=== PATIENT | female | born 1975 | race African-American/Black ===

== ENCOUNTER → 2016-07-04 | Outpatient (CLI) | payer OTHER ==
[2016-07-04 12:45] LABS: Appearance,Urine Clear (Clear); Bilirubin,Urine Negative (Negative); Glucose,Urine (UA) Negative (Negative); Ketones,Urine Negative (Negative); Leukocyte Esterase,Urine Negative (Negative); Nitrite,Urine Negative (Negative); PH, Urine 6.5 (5.0-8.0); Protein,Urine Negative (Negative); UA Billing (MACRO vs. MICRO) CHEM; Urobilinogen,Urine <2.0 mg/dL (<2.0)
== END | disposition home or self-care (01) ==
LOC: LABWHC1 12:07
PROVIDERS: ATTEND Internal Medicine Endocrinology, Diabetes & Metabolism
DX: R30.0 Dysuria (principal)
CPT/HCPCS: 36415; 81003; 82306; 84432; 84443; 86800; 87086

== ENCOUNTER → 2016-10-06 | Outpatient (CLI) | payer OTHER | END | disposition home or self-care (01) | LOC: LABWHC1 09:19 | PROVIDERS: ATTEND Internal Medicine Endocrinology, Diabetes & Metabolism | DX: C73 Malignant neoplasm of thyroid gland (principal); E55.9 Vitamin D deficiency, unspecified | CPT/HCPCS: 36415; 82306; 84432; 84443; 86800 ==

== ENCOUNTER → 2017-03-02 | Outpatient (CLI) | payer OTHER ==
--- NOTE | 2017-03-02 13:21 | ECHOS ---
STRESS ECHOCARDIOGRAM DATE OF SERVICE: 03/02/2017 MEDICATIONS:: Synthroid. BASELINE HEART RATE: 91 BASELINE BLOOD PRESSURE: 144/45 MAXIMUM HEART RATE: 171 MAXIMUM BLOOD PRESSURE: 172/93 85% MPHR: 153 100% MPHR: 180 METS: 7.1 MAXIMUM STAGE REACHED: II TOTAL EXERCISE TIME: 6 minutes INDICATIONS: Chest pain, flutter, EKG changes. CLINICAL INFORMATION: Patient was exercised for a total of 6 minutes. The peak heart rate of 171 was achieved. Maximum blood pressure of 172/93 mmHg was noted. Patient did not complain of any chest pain during the test. Resting EKG shows normal sinus rhythm with normal VT interval and QRS duration and normal ST-T waves. No ST-segment depression suggestive of ischemia is noted. Occasional PVCs are noted. FINAL IMPRESSION: 1. This exercise stress is not suggestive of ischemia. 2. Patient's exercise tolerance is normal. 3. Occasional PVCs are noted. 4. The stress echocardiographic images reveal normal increase in wall thickness and contractility at the peak in the immediate postexercise period without any evidence of stress-induced ischemia. MMODL / IJN: [id number] /
== END | disposition home or self-care (01) ==
LOC: RADNMMAIN 10:01
PROVIDERS: ATTEND Family Medicine
DX: R94.31 Abnormal electrocardiogram [ECG] [EKG] (principal); R07.9 Chest pain, unspecified; Z82.49 Family history of ischemic heart disease and other diseases of the circulatory system
CPT/HCPCS: 93017; 93225; 93226; 93350

== ENCOUNTER → 2018-03-22 | Outpatient (CLI) | payer OTHER ==
[2018-03-23 06:19] LABS: Thyroglobulin 0.22 ng/mL (1.60-59.90)
== END | disposition home or self-care (01) ==
LOC: LABWHC1 17:01
PROVIDERS: ATTEND Internal Medicine Endocrinology, Diabetes & Metabolism
DX: C73 Malignant neoplasm of thyroid gland (principal)
CPT/HCPCS: 36415; 84432; 84443; 86800

== ENCOUNTER → 2018-12-24 | Outpatient (CLI) | payer OTHER ==
[2018-12-24 10:40] VITALS: BP 122/84; PULSE 83; RESP 18; TEMP 98.3; BMI 42.4
--- NOTE | 2018-12-24 11:08 | P.GSHP ---
History of Present Illness H&P Date: 12/24/18 Chief Complaint: abnormal mammogram and ultrasound The patient is a 43 year old black female with a complaint of the left breast feeling heavy over the past 3 months. It also has intermittent burning and tingling in the left breast. The burning and tingling does not radiate anyplace. The patient states it hurts right now. The patient does not feel any masses or lumps in her breasts. She is not having the same sensation in the right breast although she does have some itching in the superior aspect of the right breast at times. She has no definite rash in either breast. She has experienced hives over the anterior chest in the past. She had a bilateral mammogram performed in September 2018 which they recommended that she undergo an ultrasound of the left breast nothing of concern was seen on the right breast a 5 mm subtle nodularity in the middle depth was seen in the left breast. On the ultrasound of the left breast the patient did not have any cystic or solid lesions identified. It was felt that she should have a left breast mammogram in 6 months time. The patient had a partial hysterectomy in the pain does not appear to be cyclic in nature. The hysterectomy was not done for cancer. Her ovaries were not removed. This was done 9 years ago. She does not drink caffiene. She does not smoke and is not exposed to second hand smoke. She eats chocolate occasionally. She does not take any hormones. The patient also states that she has back pain related to the size of her breasts. Her bra size is 44 DD. She also gets routine in her shoulders related to the heaviness of her breasts. Family history: 1.mother: colon 2. maternal grandmother: cervical 3. maternal aunt: stomach 4. maternal aunt: breast 5. sister: breast cancer at 49 pre-menopausal 6. paternal grandmother: breast cancer at 90 7. personal history thyroid cancer Name of her relatives have had genetic counseling. Hormonal history: Menarche: 14 1 miscarrage, breast fed: yes, first born at 19 hysterectomy at 32 BCP: 3 months hormones: none Surgical history: 1.thyroid cancer total thyroidectomy 2. tubal-ligation 3. hysterectomy Medical history: 1. Hypothyroid Social History: smoke: none alcohol: daily -rum drugs: none - Constitutional Constitutional: Denies chills, Denies fever - EENT Eyes: bilateral blurred vision (occasional), bilateral pain (occasional) Ears: bilateral: decreased hearing (hearing impaired needs aids) Ears, nose, mouth and throat: Reports headache, Reports sore throat - Breasts Breasts: bilateral: as per HPI - Cardiovascular Cardiovascular: Denies chest pain - Respiratory Respiratory: Denies cough, Denies 7 - Gastrointestinal Gastrointestinal: Denies abdominal pain, Denies diarrhea, Denies nausea, Denies vomiting - Genitourinary (Female) Genitourinary: Denies dysuria, Denies hematuria - Menstruation Menstruation: Reports post hysterectomy - Musculoskeletal Comment: right wrist hurts, carpal tunnel Musculoskeletal: Reports myalgias - Integumentary Integumentary: Reports pruritus, Reports rash - Neurological Neurological: Reports numbness, Reports weakness - Psychiatric Psychiatric: Reports anxiety - Endocrine Comment: thyroid resection for cancer Endocrine: Reports weight change - Hematologic/Lymphatic Comment: none - Allergic/Immunologic Comment: none Allergic/Immunologic: Reports as per HPI Past Medical History Past Medical History: GERD/Reflux, Thyroid Disorder Additional Past Medical History / Comment(s): overactive bladder History of Any Multi-Drug Resistant Organisms: None Reported Past Surgical History: Hysterectomy Additional Past Surgical History / Comment(s): partial hysterectomy, 09/11/14 thyroid removal Past Anesthesia/Blood Transfusion Reactions: No Reported Reaction Past Psychological History: No Psychological Hx Reported Smoking Status: Never smoker Past Alcohol Use History: Occasional - Past Family History Mother Family Medical History: Cancer, Hypertension Additional Family Medical History / Comment(s): colon cancer. maternal aunt with breast cancer age 40 Sister(s) Family Medical History: Cancer Additional Family Medical History / Comment(s): breast cancer age 49 Father Family Medical History: Hypertension Additional Family Medical History / Comment(s): paternal gradmother breast cancer age 80 Medications and Allergies Home Medications Medication Instructions Recorded Confirmed Type Levothyroxine Sodium 137 mcg PO QAM 12/24/18 12/24/18 History Multivitamins, Thera [Multivitamin 1 tab PO DAILY 12/24/18 12/24/18 History (formulary)] Allergies Allergy/AdvReac Type Severity Reaction Status Date / Time No Known Allergies Allergy Verified 12/24/18 10:29 Surgical - Exam Vital Signs Temp Pulse Resp BP Pulse Ox 98.3 F 83 18 122/84 100 12/24/18 10:31 12/24/18 10:31 12/24/18 10:31 12/24/18 10:31 12/24/18 10:31 BMI 42.4 - General well developed, well nourished, no distress - Eyes normal ocular movement - ENT decreased hearing - Neck no masses, trachea midline - Respiratory normal respiratory effort, clear to auscultation - Cardiovascular Rhythm: regular Heart Sounds: normal: S1, S2 - Abdomen Abdomen: soft - Integumentary normal turgor - Neurologic no disoriented, no combative - Musculoskeletal normal gait, normal posture - Psychiatric oriented to time, oriented to person, oriented to place, speech is normal, memory intact Breast examination: BRA 44DD Breasts: right breast:Multi-positional exam tattoo present fibrocystic changes no dominant masses or nodules of concern Right axilla: No adenopathy of concern Left breast: Asymmetry left breast is larger than the right breast no dominant masses or nodules of concern on multi-positional exam, fibrocystic changes Left axilla: No adenopathy of concern Results Mammogram and ultrasound results reviewed Assessment and Plan Assessment: Impression: 1. Abnormal mammogram left breast 2. Abnormal ultrasound left breast 3. Strong family history of cancer 4. Strong family history of breast cancer 5. Personal history of thyroid cancer 6. Hearing impaired 7. Back pain related to gynecomastia 8. Routine in her shoulders related to the heaviness of her breast from her block 9. Asymmetry of the breast with the left being larger than the right Plan: 1. Genetic counseling 2. Conservative breast reduction 3. Medical management of medical conditions Cc: Epifanio Calzada
== END | disposition home or self-care (01) ==
LOC: WWCWWP 10:19
PROVIDERS: ATTEND Surgery
DX: Z53.9 Procedure and treatment not carried out, unspecified reason (principal)

== ENCOUNTER → 2019-04-11 | Outpatient (CLI) | payer OTHER ==
--- NOTE | 2019-04-11 14:49 | MM ---
Reason for exam: follow-up at short interval from prior study. Last mammogram was performed 6 months ago. History: Patient has history of other cancer at age 39. Family history of breast cancer in sister at age 49, breast cancer in paternal grandmother at age 80, and breast cancer in aunt at age 40. Physical Findings: Nurse did not find any significant physical abnormalities on exam. MG 3D Diag Mammo W/Cad LT CC and MLO view(s) were taken of the left breast. Prior study comparison: October 06, 2018, bilateral MG 3d diag mammo w/cad GERARDO. May 07, 2015, bilateral MG 3d diag mammo w/cad GERARDO. The breast tissue is heterogeneously dense. This may lower the sensitivity of mammography. The left upper outer quadrant 4mm mass at middle depth is unchanged. 6 month follow up recommended. These results were verbally communicated with the patient and result sheet given to the patient on 04/11/19. ASSESSMENT: Probably benign, BI-RAD 3 RECOMMENDATION: Follow-up diagnostic mammogram of both breasts in 6 months.
== END | disposition home or self-care (01) ==
LOC: RADMAMWWP 13:06
PROVIDERS: ATTEND Obstetrics & Gynecology
DX: R92.8 Other abnormal and inconclusive findings on diagnostic imaging of breast (principal)
CPT/HCPCS: 77065; G0279; 77061

== ENCOUNTER → 2019-04-14 | Outpatient (CLI) | payer OTHER ==
[2019-04-14 14:09] VITALS: BP 120/81; PULSE 73; RESP 18; TEMP 97.8
--- NOTE | 2019-04-14 14:50 | P.PN ---
Subjective Progress Note Date: 04/14/19 Principal diagnosis: mammogram results The patient is a 43 year old black female with a complaint of the left breast feeling heavy over the past 3 months. It also has intermittent burning and tingling in the left breast. The burning and tingling does not radiate anyplace. The patient states it hurts right now. The patient does not feel any masses or lumps in her breasts. She is not having the same sensation in the right breast although she does have some itching in the superior aspect of the right breast at times. She has no definite rash in either breast. She has experienced hives over the anterior chest in the past. She had a bilateral mammogram performed in September 2018 which they recommended that she undergo an ultrasound of the left breast nothing of concern was seen on the right breast a 5 mm subtle nodularity in the middle depth was seen in the left breast. On the ultrasound of the left breast the patient did not have any cystic or solid lesions identified. It was felt that she should have a left breast mammogram in 6 months time. The patient had a partial hysterectomy in the pain does not appear to be cyclic in nature. The hysterectomy was not done for cancer. Her ovaries were not removed. This was done 9 years ago. She does not drink caffiene. She does not smoke and is not exposed to second hand smoke. She eats chocolate occasionally. She does not take any hormones. The patient also states that she has back pain related to the size of her breasts. Her bra size is 44 DD. She also gets routine in her shoulders related to the heaviness of her breasts. She started taking Prilosec oil approximately a month ago. She has not noted a ny large changes in the discomfort in her left breast. She had a left breast mammogram performed on [id number]. This was felt to be probably benign BIRADS 3. Six-month follow-up was recommended. There is a 4 mm mass at middle depth which is felt to be unchanged. She attempted to have genetic counseling but was unable to reach the genetic counseling office. She states she has left numerous messages with them but they have not called back. Family history: 1.mother: colon 2. maternal grandmother: cervical 3. maternal aunt: stomach 4. maternal aunt: breast 5. sister: breast cancer at 49 pre-menopausal 6. paternal grandmother: breast cancer at 90 7. personal history thyroid cancer None of her relatives have had genetic counseling. Hormonal history: Menarche: 14 1 misc[place]age, breast fed: yes, first born at 19 hysterectomy at 32 BCP: 3 months hormones: none Surgical history: 1.thyroid cancer total thyroidectomy 2. tubal-ligation 3. hysterectomy Medical history: 1. Hypothyroid Social History: smoke: none alcohol: daily -rum drugs: none - Constitutional Constitutional: Denies chills, Denies fever - EENT Eyes: bilateral blurred vision (occasional), bilateral pain (occasional) Ears: bilateral: decreased hearing (hearing impaired needs aids) Ears, nose, mouth and throat: Reports headache, Reports sore throat - Breasts Breasts: bilateral: as per HPI - Cardiovascular Cardiovascular: Denies chest pain - Respiratory Respiratory: Denies cough, Denies 7 - Gastrointestinal Gastrointestinal: Denies abdominal pain, Denies diarrhea, Denies nausea, Denies vomiting - Genitourinary (Female) Genitourinary: Denies dysuria, Denies hematuria - Menstruation Menstruation: Reports post hysterectomy - Musculoskeletal Comment: right wrist hurts, carpal tunnel Musculoskeletal: Reports myalgias - Integumentary Integumentary: Reports pruritus, Reports rash - Neurological Neurological: Reports numbness, Reports weakness - Psychiatric Psychiatric: Reports anxiety - Endocrine Comment: thyroid resection for cancer Endocrine: Reports weight change - Hematologic/Lymphatic Comment: none - Allergic/Immunologic Comment: none Allergic/Immunologic: Reports as per HPI Past Medical History Past Medical History: GERD/Reflux, Thyroid Disorder Additional Past Medical History / Comment(s): overactive bladder History of Any Multi-Drug Resistant Organisms: None Reported Past Surgical History: Hysterectomy Additional Past Surgical History / Comment(s): partial hysterectomy, 09/11/14 thyroid removal Past Anesthesia/Blood Transfusion Reactions: No Reported Reaction Past Psychological History: No Psychological Hx Reported Smoking Status: Never smoker Past Alcohol Use History: Occasional - Past Family History Mother Family Medical History: Cancer, Hypertension Additional Family Medical History / Comment(s): colon cancer. maternal aunt with breast cancer age 40 Sister(s) Family Medical History: Cancer Additional Family Medical History / Comment(s): breast cancer age 49 Father Family Medical History: Hypertension Additional Family Medical History / Comment(s): paternal gradmother breast cancer age 80 Objective - Vital Signs Vital signs: Vital Signs Temp 97.8 F 01/02/20 14:03 Pulse 73 04/14/19 14:03 Resp 18 04/14/19 14:03 BP 120/81 04/14/19 14:03 Pulse Ox 96 04/14/19 14:03 Intake & Output 04/13/19 04/14/19 04/14/19 18:59 06:59 18:59 Weight 106.594 kg - Exam BMI 40.3 - Constitutional General appearance: Present: obese - EENT Eyes: Present: EOMI ENT: Present: hard of hearing - Neck Neck: Present: normal ROM - Respiratory Respiratory: bilateral: CTA - Cardiovascular Rhythm: regular Heart sounds: normal: S1, S2 - Integumentary Integumentary: Present: normal turgor - Psychiatric Psychiatric: Present: A&O x's 3, appropriate affect, intact judgment & insight - Additional findings Additional findings: Breast exam: Deferred Assessment and Plan Plan: Impression: 1. Abnormal left breast mammogram/4 mm nodule which is stable 2. Family history of cancer 3. Personal history of thyroid cancer 4. Hearing impaired 5. Back pain related to macromastia 6. Shoulder notching related to heaviness from her breast 7. Asymmetry of the breast 8. Breast pain Plan: 1. Genetic counseling/ set up meeting with Romelia López to help facilitate this 2. Consider breast reduction 3. Medical management of medical conditions 4. Continue primrose oil 5. Bilateral mammogram in 6 months with a physician exam at that time CC: Dr. Hannah, Dr. Rodriguez encounter 10 minutes > 50% spent in planning and counselling
== END ==
LOC: WWCWWP 13:52
PROVIDERS: ATTEND Surgery
DX: Z53.9 Procedure and treatment not carried out, unspecified reason (principal)

== ENCOUNTER → 2019-07-27 | Outpatient (CLI) | payer OTHER ==
--- NOTE | 2019-07-27 12:00 | US ---
EXAMINATION TYPE: US thyroid st tissue head/neck DATE OF EXAM: 07/27/2019 COMPARISON: US CLINICAL HISTORY: R07.89 Other chest pain, Z85.850 Personal historythyroid cancer GLAND SIZE: NODULES RIGHT: # of nodules measured on right: 0 LEFT: # of nodules measured on left: 0 ISTHMUS: # of nodules measured in the isthmus: 0 Bilateral neck scanned, no evidence of lymphadenopathy. Bilateral thyroidectomy. IMPRESSION: 1. No recurrent masses within the thyroid bed are evident.
== END | disposition home or self-care (01) ==
LOC: RADUSWWP 11:07
PROVIDERS: ATTEND Family Medicine
DX: R09.89 Other specified symptoms and signs involving the circulatory and respiratory systems (principal); Z85.850 Personal history of malignant neoplasm of thyroid
CPT/HCPCS: 76536

== ENCOUNTER → 2019-09-20 | Outpatient (CLI) | payer OTHER ==
--- NOTE | 2019-09-21 07:06 | US ---
EXAMINATION TYPE: US thyroid st tissue head/neck DATE OF EXAM: 09/20/2019 COMPARISON: US 2019 CLINICAL HISTORY: C73 MALIGNANT NEOPLASM OF THYROID GLAND. History of thyroid CA, thyroidectomy 2014, patient on thyroid meds RIGHT: surgically absent LEFT: surgically absent ISTHMUS: surgically absent Bilateral neck scanned, no evidence of lymphadenopathy. IMPRESSION: Postsurgical change with no evidence of recurrent mass.
== END | disposition home or self-care (01) ==
LOC: RADUSWWP 13:12
PROVIDERS: ATTEND Internal Medicine Endocrinology, Diabetes & Metabolism
DX: E89.0 Postprocedural hypothyroidism (principal); C73 Malignant neoplasm of thyroid gland
CPT/HCPCS: 76536; 84432; 84443; 86800

== ENCOUNTER → 2019-10-12 | Outpatient (CLI) | payer OTHER ==
--- NOTE | 2019-10-12 11:32 | MM ---
Reason for exam: follow-up at short interval from prior study. Last mammogram was performed 6 months ago. History: Patient has history of other cancer at age 39. Family history of breast cancer in sister at age 49, breast cancer in paternal grandmother at age 80, and breast cancer in aunt at age 40. Physical Findings: Nurse did not find any significant physical abnormalities on exam. MG 3D Diag Mammo W/Cad GERARDO Bilateral CC and MLO view(s) were taken. Prior study comparison: April 11, 2019, left breast MG 3d diag mammo w/cad LT. October 06, 2018, bilateral MG 3d diag mammo w/cad GERARDO. The breast tissue is heterogeneously dense. This may lower the sensitivity of mammography. There is chronic nodularity in the left breast. No significant new findings when compared with previous films. These results were verbally communicated with the patient and result sheet given to the patient on 10/12/19. ASSESSMENT: Benign, BI-RAD 2 RECOMMENDATION: Routine screening mammogram of both breasts in 1 year.
== END | disposition home or self-care (01) ==
LOC: RADMAMWWP 09:34
PROVIDERS: ATTEND Surgery
DX: R92.8 Other abnormal and inconclusive findings on diagnostic imaging of breast (principal)
CPT/HCPCS: 77066; G0279; 77062

== ENCOUNTER → 2019-10-20 | Outpatient (CLI) | payer OTHER ==
--- NOTE | 2019-10-20 11:19 | P.PN ---
Subjective Progress Note Date: 10/20/19 Principal diagnosis: fibrocystic breast changes Jaelyn is a 44-year-old black female who was initially seen approximately December 2018 with a complaint of bilateral breast fullness and discomfort. She states that the fullness and discomfort have improved. She has stopped caffeine intake. She has not complained of any lumps masses or nodules in her breast. She had a bilateral mammogram performed on 7119 which was benign BIRADS 2. She did not complain of any nipple discharge or skin changes. Her bra size is a 44 DD. She does have shoulder and back pain related to this. Family history: 1.mother: colon 2. maternal grandmother: cervical 3. maternal aunt: stomach 4. maternal aunt: breast 5. sister: breast cancer at 49 pre-menopausal 6. paternal grandmother: breast cancer at 90 7. personal history thyroid cancer Name of her relatives have had genetic counseling. Hormonal history: Menarche: 14 1 [place], breast fed: yes, first born at 19 hysterectomy at 32 BCP: 3 months hormones: none Surgical history: 1.thyroid cancer total thyroidectomy 2. tubal-ligation 3. hysterectomy Medical history: 1. Hypothyroid Social History: smoke: none alcohol: occasional rum drugs: none - Constitutional Constitutional: Denies chills, Denies fever - EENT Eyes: bilateral blurred vision (occasional), bilateral pain (occasional) Ears: bilateral: decreased hearing (hearing impaired needs aids) Ears, nose, mouth and throat: Reports headache, Reports sore throat - Breasts Breasts: bilateral: as per HPI - Cardiovascular Cardiovascular: Denies chest pain - Respiratory Respiratory: Denies cough, - Gastrointestinal Gastrointestinal: Denies abdominal pain, Denies diarrhea, Denies nausea, Denies vomiting - Genitourinary (Female) Genitourinary: Denies dysuria, Denies hematuria - Menstruation Menstruation: Reports post hysterectomy - Musculoskeletal Comment: right wrist hurts, carpal tunnel Musculoskeletal: Reports myalgias - Integumentary Integumentary: Reports pruritus, Reports rash - Neurological Neurological: Reports numbness, Reports weakness - Psychiatric Psychiatric: Reports anxiety - Endocrine Comment: thyroid resection for cancer Endocrine: Reports weight change - Hematologic/Lymphatic Comment: none - Allergic/Immunologic Comment: none Allergic/Immunologic: Reports as per HPI Objective - Vital Signs Vital signs: Vital Signs Temp 98.4 F 10/20/19 10:47 Pulse 76 10/20/19 10:47 Resp 18 10/20/19 10:47 BP 135/78 10/20/19 10:47 Pulse Ox 97 10/20/19 10:47 Intake & Output 10/19/19 10/20/19 10/20/19 18:59 06:59 18:59 Weight 108.862 kg - Exam BMI 41.2 - Constitutional General appearance: Present: obese - EENT Eyes: Present: EOMI ENT: Present: hearing grossly normal - Neck Neck: Present: normal ROM - Respiratory Respiratory: bilateral: CTA - Cardiovascular Rhythm: regular Heart sounds: normal: S1, S2 - Gastrointestinal General gastrointestinal: Present: normal bowel sounds, soft - Integumentary Integumentary: Present: normal turgor - Musculoskeletal Musculoskeletal: Present: gait normal - Psychiatric Psychiatric: Present: A&O x's 3, appropriate affect, intact judgment & insight - Additional findings Additional findings: Breast exam: BRA 44DD inspection: ptosis bilateral grade3, left breast larger than right breast, tattoo right breast palpation: right breast: Multiple positional exam fibrocystic changes, tatoo on the right breast no dominant masses or nodules of concern Right axilla: No adenopathy of concern Left breast: Multi-positional exam no dominant masses or nodules of concern, fibrocystic changes left breast is larger than right breast Left axilla: No adenopathy of concern Assessment and Plan Assessment: Impression/plan: 1. Fibrocystic breast changes 2. Decreased mastodynia bilaterally 3. Asymmetry of the breast 4. Back pain related to macromastia 5. family history of breast cancer cc: Dr. Hannah encounter 25 minutes > 50% of time in planning and counselling
[2019-10-21 10:04] VITALS: BP 135/78; PULSE 76; RESP 18; TEMP 98.4
== END | disposition home or self-care (01) ==
LOC: WWCWWP 10:32
PROVIDERS: ATTEND Surgery
DX: Z53.9 Procedure and treatment not carried out, unspecified reason (principal)

== ENCOUNTER → 2020-09-19 | Outpatient (CLI) | payer OTHER ==
--- NOTE | 2020-09-20 08:20 | US ---
EXAMINATION TYPE: US thyroid st tissue head/neck DATE OF EXAM: 09/19/2020 COMPARISON: NONE CLINICAL HISTORY: C73. Thyroid Ca. Thy Ca removed 6 years ago. GLAND SIZE: Right Lobe: Surgically absent Left Lobe: Surgically absent NODULES RIGHT: # of nodules measured on right: 0 LEFT: # of nodules measured on left: 0 ISTHMUS: # of nodules measured in the isthmus: 0 Bilateral neck scanned, no evidence of lymphadenopathy. IMPRESSION: 1. Normal postthyroidectomy ultrasound. 2. No suspicious recurrent masses.
== END | disposition home or self-care (01) ==
LOC: RADUSWWP 16:23
PROVIDERS: ATTEND Internal Medicine Endocrinology, Diabetes & Metabolism
DX: Z85.850 Personal history of malignant neoplasm of thyroid (principal)
CPT/HCPCS: 76536; 84432; 84443; 86800

== ENCOUNTER → 2020-10-19 | Outpatient (CLI) | payer OTHER ==
--- NOTE | 2020-10-23 09:06 | MM ---
Reason for exam: screening (asymptomatic). Last mammogram was performed 1 year ago. History: Patient has history of other cancer at age 39. Family history of breast cancer in sister at age 49, breast cancer in paternal grandmother at age 80, and breast cancer in aunt at age 40. Physical Findings: A clinical breast exam by your physician is recommended on an annual basis and results should be correlated with mammographic findings. MG 3D Screening Mammo W/Cad Bilateral CC and MLO view(s) were taken. Prior study comparison: October 12, 2019, bilateral MG 3d diag mammo w/cad GERARDO. April 11, 2019, left breast MG 3d diag mammo w/cad LT. There are scattered fibroglandular densities. ASSESSMENT: Negative, BI-RAD 1 RECOMMENDATION: Routine screening mammogram of both breasts in 1 year.
== END | disposition home or self-care (01) ==
LOC: RADMAMWWP 10:27
PROVIDERS: ATTEND Surgery
DX: Z12.31 Encounter for screening mammogram for malignant neoplasm of breast (principal); Z85.3 Personal history of malignant neoplasm of breast; Z80.3 Family history of malignant neoplasm of breast
CPT/HCPCS: 77063; 77067

== ENCOUNTER → 2020-10-25 | Outpatient (CLI) | payer OTHER ==
[2020-10-25 13:35] VITALS: BP 146/79; PULSE 81; RESP 12; TEMP 98.1
--- NOTE | 2020-10-25 13:56 | P.PN ---
Subjective Progress Note Date: 10/25/20 Principal diagnosis: Fibrocystic breast changes fibrocystic breast changes Jaelyn is a 45-year-old black female who was initially seen approximately December 2018 with a complaint of bilateral breast fullness and discomfort. She states that the fullness and discomfort have improved. She has stopped caffeine intake. She has not complained of any lumps masses or nodules in her breast. She had a bilateral mammogram performed on which was benign BIRADS 2. She did not complain of any nipple discharge or skin changes. Her bra size is a 44 DD. She does have shoulder and back pain related to this. Caffeine: Negative Nicotine: Negative Chocolate: occasional hormones: Negative Family history: 1.mother: colon cancer 2. maternal grandmother: cervical 3. maternal aunt: stomach 4. maternal aunt: breast 5. sister: breast cancer at 49 pre-menopausal 6. paternal grandmother: breast cancer at 90 7. personal history thyroid cancer Name of her relatives have had genetic counseling. Hormonal history: Menarche: 14 1 [place], breast fed: yes, first born at 19 hysterectomy at 32 BCP: 3 months hormones: none Surgical history: 1.thyroid cancer total thyroidectomy 2. tubal-ligation 3. hysterectomy Medical history: 1. Hypothyroid Social History: smoke: none alcohol: occasional rum drugs: none - Constitutional Constitutional: Denies chills, Denies fever - EENT Eyes: bilateral blurred vision (occasional), bilateral pain (occasional) Ears: bilateral: decreased hearing (hearing impaired needs aids) Ears, nose, mouth and throat: Reports headache, Reports sore throat - Breasts Breasts: bilateral: as per HPI - Cardiovascular Cardiovascular: Denies chest pain - Respiratory Respiratory: Denies cough, - Gastrointestinal Gastrointestinal: Denies abdominal pain, Denies diarrhea, Denies nausea, Denies vomiting - Genitourinary (Female) Genitourinary: Denies dysuria, Denies hematuria - Menstruation Menstruation: Reports post hysterectomy - Musculoskeletal Comment: right wrist hurts, carpal tunnel Musculoskeletal: Reports myalgias - Integumentary Integumentary: Reports pruritus, Reports rash - Neurological Neurological: Reports numbness, Reports weakness - Psychiatric Psychiatric: Reports anxiety - Endocrine Comment: thyroid resection for cancer Endocrine: Reports weight change - Hematologic/Lymphatic Comment: none - Allergic/Immunologic Comment: none Allergic/Immunologic: Reports as per HPI Objective - Vital Signs Vital signs: Vital Signs Temp 98.1 F 10/25/20 13:24 Pulse 81 10/25/20 13:24 Resp 12 10/25/20 13:24 BP 146/79 10/25/20 13:24 Pulse Ox 95 10/25/20 13:24 Intake & Output 10/24/20 10/25/20 10/25/20 18:59 06:59 18:59 Weight 104.326 kg - Exam BMI 39.5 - Constitutional General appearance: Present: cooperative - EENT Eyes: Present: EOMI ENT: Present: hearing grossly normal - Neck Neck: Present: normal ROM - Respiratory Respiratory: bilateral: CTA - Cardiovascular Rhythm: regular Heart sounds: normal: S1, S2 - Gastrointestinal General gastrointestinal: Present: soft - Integumentary Integumentary: Present: normal turgor - Musculoskeletal Musculoskeletal: Present: gait normal - Psychiatric Psychiatric: Present: A&O x's 3, appropriate affect, intact judgment & insight - Additional findings Additional findings: Breast Exam: BRA: 44DD inspection:bilateral grade 3 ptosis palpation: right breast: Tattoo, multiple positional exam fibrocystic changes, no dominant masses or nodules of concern Right axilla: No adenopathy of concern Left breast: Multi-positional exam fibrocystic changes, no dominant masses or nodules of concern Left axilla: No adenopathy of concern , Assessment and Plan Assessment: Impression: 1. Bilateral fibrocystic breast changes 2. Family history of breast cancer 3. Patient is interested in genetic testing Plan: 1. Bilateral mammogram in 1 year with physician exam at that time 2. Appointment with genetic counselor 3. Follow up sooner if any questions or concerns CC: Dr. Hannah
== END ==
LOC: WWCWWP 13:21
PROVIDERS: ATTEND Surgery
DX: N60.11 Diffuse cystic mastopathy of right breast (principal); N60.12 Diffuse cystic mastopathy of left breast; E03.9 Hypothyroidism, unspecified; Z79.890 Hormone replacement therapy; Z80.3 Family history of malignant neoplasm of breast

== ENCOUNTER → 2021-01-14 | Outpatient (CLI) | payer OTHER ==
--- NOTE | 2021-01-17 17:28 | P.HOLTER ---
This is a report on the 48-hour Holter monitor. Baseline EKG showed sinus rhythm with an average heart rate of 87 bpm. Minimum is 60 and maximum 125. Rare PVCs noted. There APCs noted. Patient did not maintain a diary. No significant ventricular or supraventricular arrhythmias noted. Final impression: #1. Sinus rhythm. #2 occasional APCs. #3 occasional PVCs. #4. No significant cardiac tachyarrhythmias. #5. Patient did not report any cardiac symptoms
== END | disposition home or self-care (01) ==
LOC: RADECHMAIN 12:42
PROVIDERS: ATTEND Family Medicine
DX: I49.3 Ventricular premature depolarization (principal)
CPT/HCPCS: 93225; 93226

== ENCOUNTER 2021-04-13 11:53 | Observation (INO) | payer OTHER ==
[2021-04-13] MEDS ORDERED: NITROGLYCERIN OINT 1 INCH/GM PACKET TOPICAL STA (13:11)
[2021-04-13] MEDS ORDERED: ASPIRIN 81 MG PO STA ×2 (13:11→16:10)
--- NOTE | 2021-04-13 13:14 | ED ---
General Adult HPI - General Chief complaint: Chest Pain Stated complaint: Chest pain Time Seen by Provider: 04/13/21 12:52 Source: patient, family, RN notes reviewed Mode of arrival: ambulatory Limitations: no limitations - History of Present Illness Initial comments: Patient is a pleasant 45-year-old female presenting to the emergency Department with complaints of chest discomfort. Onset of symptoms was around 2 AM. He should does have problems with anxiety however no history of similar symptoms previously. Discomfort feels like tightness. Patient does have mild associated dyspnea however questions if that is just from her sinuses. No nausea vomiting. No diaphoresis. Discomfort is mild at this time. Last night discomfort was more severe. Patient has had achiness in her legs over the past several days however that has improved. Patient does have Brother with recent heart attack. - Related Data Home Medications Medication Instructions Recorded Confirmed Cephalexin [Keflex] 500 mg PO TID 04/13/21 04/13/21 Levothyroxine Sodium [Synthroid] 112 mcg PO DAILY 04/13/21 04/13/21 Allergies Allergy/AdvReac Type Severity Reaction Status Date / Time No Known Allergies Allergy Verified 04/13/21 14:27 Review of Systems ROS Statement: Those systems with pertinent positive or pertinent negative responses have been documented in the HPI. ROS Other: All systems not noted in ROS Statement are negative. Constitutional: Denies: fever Eyes: Denies: eye pain ENT: Reports: congestion. Denies: ear pain Respiratory: Reports: as per HPI. Denies: cough Cardiovascular: Reports: as per HPI, chest pain Endocrine: Denies: fatigue Gastrointestinal: Denies: abdominal pain Genitourinary: Denies: dysuria Musculoskeletal: Denies: back pain Skin: Denies: rash Neurological: Denies: weakness Psychiatric: Reports: anxiety Past Medical History Past Medical History: GERD/Reflux, Thyroid Disorder Additional Past Medical History / Comment(s): overactive bladder History of Any Multi-Drug Resistant Organisms: None Reported Past Surgical History: Hysterectomy Additional Past Surgical History / Comment(s): partial hysterectomy, 09/11/14 thyroid removal Past Anesthesia/Blood Transfusion Reactions: No Reported Reaction Past Psychological History: No Psychological Hx Reported Smoking Status: Never smoker Past Alcohol Use History: Occasional - Past Family History Mother Family Medical History: Cancer, Hypertension Additional Family Medical History / Comment(s): colon cancer. maternal aunt with breast cancer age 40 Sister(s) Family Medical History: Cancer Additional Family Medical History / Comment(s): breast cancer age 49 Father Family Medical History: Hypertension Additional Family Medical History / Comment(s): paternal gradmother breast cancer age 80 General Exam Limitations: no limitations General appearance: alert, in no apparent distress Head exam: Present: normocephalic Eye exam: Present: normal appearance Neck exam: Present: normal inspection Respiratory exam: Present: normal lung sounds bilaterally, chest wall tenderness Cardiovascular Exam: Present: regular rate, normal rhythm Expanded Peripheral pulses: 2+: Radial (R), Radial (L), Dorsalis Pedis (R), Dorsalis Pedis (L) GI/Abdominal exam: Present: soft. Absent: distended, tenderness Extremities exam: Present: normal inspection. Absent: pedal edema, calf tenderness Neurological exam: Present: alert Psychiatric exam: Present: normal affect, normal mood Skin exam: Present: normal color Course Vital Signs 04/13/21 04/13/21 12:52 16:03 Temperature 98.8 F Pulse Rate 98 89 Respiratory 20 19 Rate Blood Pressure 126/90 117/71 O2 Sat by Pulse 94 L 89 L Oximetry EKG Findings - EKG Comments: EKG Findings:: Normal sinus rhythm 88 rate. NJ 116. QRS 80. QT 342. QTC 413 left axis. LVH criteria. No acute ST change. Prominent T waves inferior. Medical Decision Making - Medical Decision Making Patient evaluated and resting comfortably in bed. Patient and family updated on results and plan. Case was discussed with Dr. Hannah, who will admit his patient. He is aware of pending computed tomography scan. - Lab Data Result diagrams: 04/13/21 13:37 04/13/21 13:37 Lab Results 04/13/21 04/13/21 04/13/21 Range/Units 13:37 13:37 13:37 WBC 3.9 (3.8-10.6) k/uL RBC 5.09 (3.80-5.40) m/uL Hgb 16.2 H (11.4-16.0) gm/dL Hct 49.0 H (34.0-46.0) % MCV 96.3 (80.0-100.0) fL MCH 31.9 (25.0-35.0) pg MCHC 33.1 (31.0-37.0) g/dL RDW 13.5 (11.5-15.5) % Plt Count 311 (150-450) k/uL MPV 7.5 Neutrophils % 56 % Lymphocytes % 29 % Monocytes % 10 % Eosinophils % 1 % Basophils % 1 % Neutrophils # 2.2 (1.3-7.7) k/uL Lymphocytes # 1.2 (1.0-4.8) k/uL Monocytes # 0.4 (0-1.0) k/uL Eosinophils # 0.0 (0-0.7) k/uL Basophils # 0.0 (0-0.2) k/uL PT 10.5 (9.0-12.0) sec INR 1.0 (<1.2) APTT 28.4 (22.0-30.0) sec D-Dimer 0.74 H (<0.60) mg/L FEU Sodium 135 L (137-145) mmol/L Potassium 3.8 (3.5-5.1) mmol/L Chloride 103 (98-107) mmol/L Carbon Dioxide 26 (22-30) mmol/L Anion Gap 6 mmol/L BUN 7 (7-17) mg/dL Creatinine 0.81 (0.52-1.04) mg/dL Est GFR (CKD-EPI)AfAm >90 (>60 ml/min/1.73 sqM) Est GFR (CKD-EPI)NonAf 89 (>60 ml/min/1.73 sqM) Glucose 88 (74-99) mg/dL Calcium 9.4 (8.4-10.2) mg/dL Magnesium 1.9 (1.6-2.3) mg/dL Total Bilirubin 0.4 (0.2-1.3) mg/dL AST 33 (14-36) U/L ALT 20 (4-34) U/L Alkaline Phosphatase 97 (38-126) U/L Troponin I (0.000-0.034) ng/mL NT-Pro-B Natriuret Pep pg/mL Total Protein 8.3 H (6.3-8.2) g/dL Albumin 4.3 (3.5-5.0) g/dL Coronavirus (PCR) (Not Detectd) 04/13/21 04/13/21 04/13/21 Range/Units 13:37 13:37 13:37 WBC (3.8-10.6) k/uL RBC (3.80-5.40) m/uL Hgb (11.4-16.0) gm/dL Hct (34.0-46.0) % MCV (80.0-100.0) fL MCH (25.0-35.0) pg MCHC (31.0-37.0) g/dL RDW (11.5-15.5) % Plt Count (150-450) k/uL MPV Neutrophils % % Lymphocytes % % Monocytes % % Eosinophils % % Basophils % % Neutrophils # (1.3-7.7) k/uL Lymphocytes # (1.0-4.8) k/uL Monocytes # (0-1.0) k/uL Eosinophils # (0-0.7) k/uL Basophils # (0-0.2) k/uL PT (9.0-12.0) sec INR (<1.2) APTT (22.0-30.0) sec D-Dimer (<0.60) mg/L FEU Sodium (137-145) mmol/L Potassium (3.5-5.1) mmol/L Chloride (98-107) mmol/L Carbon Dioxide (22-30) mmol/L Anion Gap mmol/L BUN (7-17) mg/dL Creatinine (0.52-1.04) mg/dL Est GFR (CKD-EPI)AfAm (>60 ml/min/1.73 sqM) Est GFR (CKD-EPI)NonAf (>60 ml/min/1.73 sqM) Glucose (74-99) mg/dL Calcium (8.4-10.2) mg/dL Magnesium (1.6-2.3) mg/dL Total Bilirubin (0.2-1.3) mg/dL AST (14-36) U/L ALT (4-34) U/L Alkaline Phosphatase (38-126) U/L Troponin I <0.012 (0.000-0.034) ng/mL NT-Pro-B Natriuret Pep 21 pg/mL Total Protein (6.3-8.2) g/dL Albumin (3.5-5.0) g/dL Coronavirus (PCR) Detected A (Not Detectd) - Radiology Data Radiology results: image reviewed (Chest x-ray shows no acute process) Disposition Clinical Impression: Chest pain, COVID-19 Disposition: ADMITTED IP TO THIS HOSP Is patient prescribed a controlled substance at d/c from ED?: No Referrals: Foreign Hannah MD [Primary Care Provider] - 1-2 days Decision Time: 16:09
[2021-04-13 13:42] LABS: Basophils % (A) 1 %; Eosinophils % (A) 1 %; HGB 16.2 gm/dL (11.4-16.0); Lymphocytes # (A) 1.2 k/uL (1.0-4.8); Lymphocytes % (A) 29 %; MCH 31.9 pg (25.0-35.0); MCHC 33.1 g/dL (31.0-37.0); MCV 96.3 fL (80.0-100.0); Mean Platelet Volume 7.5; Monocytes # (A) 0.4 k/uL (0-1.0); Monocytes % (A) 10 %; Neutrophils # (A) 2.2 k/uL (1.3-7.7); Neutrophils % (A) 56 %; Platelet Count 311 k/uL (150-450); RBC 5.09 m/uL (3.80-5.40); RDW 13.5 % (11.5-15.5); WBC 3.9 k/uL (3.8-10.6)
[2021-04-13 13:51] LABS: ALT 20 U/L (4-34); AST 33 U/L (14-36); African American GFR (CKD) >90 (>60 ml/min/1.73 sqM); Albumin 4.3 g/dL (3.5-5.0); Alkaline Phosphatase 97 U/L (38-126); Anion Gap 6 mmol/L; Blood Urea Nitrogen 7 mg/dL (7-17); Calcium 9.4 mg/dL (8.4-10.2); Carbon Dioxide 26 mmol/L (22-30); Chloride 103 mmol/L (98-107); Glucose 88 mg/dL (74-99); Magnesium 1.9 mg/dL (1.6-2.3); Non-African American GFR(CKD) 89 (>60 ml/min/1.73 sqM); Potassium 3.8 mmol/L (3.5-5.1); Sodium 135 mmol/L (137-145); Total Bilirubin 0.4 mg/dL (0.2-1.3); Total Protein 8.3 g/dL (6.3-8.2)
[2021-04-13 13:57] LABS: Partial Thromboplastin Time 28.4 sec (22.0-30.0); Prothrombin Time 10.5 sec (9.0-12.0)
--- NOTE | 2021-04-13 14:31 | XR ---
EXAMINATION TYPE: XR chest 2V DATE OF EXAM: 04/13/2021 1:45 PM COMPARISON:None CLINICAL INDICATION:Female, 45 years old with history of Chest Pain; TECHNIQUE: Frontal and lateral views of the chest. FINDINGS: Lungs/Pleura: There is no evidence of pleural effusion, focal consolidation, or pneumothorax. Pulmonary vascularity: Unremarkable. Heart/mediastinum: Cardiomediastinal silhouette is unremarkable. Musculoskeletal: No acute osseous pathology. IMPRESSION: No acute cardiopulmonary disease/process.
[2021-04-13] MEDS ORDERED: NITROGLYCERIN SL TABS 0.4 MG TAB SUBLINGUAL PRN (16:10)
--- NOTE | 2021-04-13 16:12 | CT ---
EXAMINATION TYPE: CT angio chest DATE OF EXAM: 04/13/2021 COMPARISON: None HISTORY: Chest pain and dyspnea. CT DLP: 350.5 mGycm Automated exposure control for dose reduction was used. CONTRAST: Performed with IV Contrast, patient injected with 100ml mL of Isovue 370. There are Three-D postprocessed images. Mediastinum is normal. Heart size is normal. There is no pericardial effusion. There are no hilar mas ses. The ascending aorta measures 3.3 cm. There are small pleural effusions. The lungs are clear of consolidation. There is no evidence of a pulmonary mass. There is normal contrast opacification of the pulmonary arteries. There are no filling defects. There is some minimal reticular interstitial density left posterior lung base. The thoracic spine is intact there is no compression fracture. Sternum is intact. IMPRESSION: No evidence of pulmonary embolism. Small bilateral pleural effusions. No suspicious pulmonary mass.
--- NOTE | 2021-04-13 18:31 | HP ---
HISTORY AND PHYSICAL CHIEF COMPLAINT: Pain in both thighs. HISTORY OF PRESENT ILLNESS: This is a the first admission for this 45-year-old female. She started to have some aching in both thighs and grew steadily worse and she came to the emergency room. She denies any fever, chills, shortness of breath, etc. Her brother just went into the hospital today with a myocardial infarction. In the emergency room she did test positive for Covid but, she has had no other symptoms. Her D-dimer was elevated slightly as well. She had a very minimal dry cough occasionally of late and her taste and smell were normal. She is not vaccinated. REVIEW OF SYSTEMS: She has no other complaints. She has no sore throat, diarrhea, nausea, vomiting, etc. Past medical history, family history and personal and social histories find that she has been on Synthroid. Surgically she has had hysterectomy and a thyroidectomy. She does not smoke. PHYSICAL EXAMINATION: Blood pressure is 118/69 with a pulse of 81, respirations of 20 and she is afebrile. In general she appeared to be slightly overweight. Skin color is normal. Skin is warm, dry. Head, ears, eyes, nose, mouth and throat are normal. Neck veins not distended. Thyroid not enlarged. Chest is clear. Cardiac exam is normal. Abdomen is soft, nontender. Extremities: Normal. Pulses good. IMPRESSION: 1. Bilateral pain in both thigh, etiology unknown. 2. Positive Covid-19. 3. History of thyroidectomy with hypothyroidism. PLAN: 1. Bedrest. 2. IV fluids. 3. Watch out for Covid symptoms. 4. Look for etiology of the her bilateral thigh pain. MMODL / IJN: [id number] /
[2021-04-13] MEDS: ACETAMINOPHEN TAB 325 MG TAB PO PRN (22:25)
[2021-04-14] MEDS: ACETAMINOPHEN TAB 325 MG TAB PO PRN ×3 (04:20→21:21)
[2021-04-14] MEDS: LEVOTHYROXINE 112 MCG TAB PO SCH (05:27)
[2021-04-14] MEDS: ASPIRIN 325 MG TAB PO SCH (08:38)
[2021-04-14 11:31] LABS: Chol/HDL Ratio 3.47 Ratio; VLDL Calculation 13.94 mg/dL (5.00-40.00)
--- NOTE | 2021-04-14 13:29 | PN ---
PROGRESS NOTE CHIEF COMPLAINT: Pain in the legs with fever and COVID-19. HISTORY OF PRESENT ILLNESS: This lady is feeling better. She is running a temperature, however. Legs are feeling better. She has a little bit of shortness of breath. Her pulse ox is good, however. PHYSICAL EXAMINATION: Her chest is clear. Cardiac exam is normal. Abdomen is soft, nontender. IMPRESSION: 1. COVID-19. 2. Myalgias. 3. Shortness of breath. PLAN: Start albuterol inhaler and IV steroids. MMODL / IJN: [id number] /
--- NOTE | 2021-04-14 13:57 | P.CRDCN ---
History of Present Illness Consult date: 04/14/21 History of present illness: HISTORY OF PRESENTING ILLNESS This is a pleasant 45-year-old female with a past medical history significant for GERD and thyroid disorder. Patient has no known cardiac history. She does have a cardiac family history, her brother has recently had a heart attack. She follows in the office with Dr Leach. She has not been seen in the office since 2013. We have been asked to see in consultation for chest pain. Patient reports she came to the ER due to bilateral leg pain. She had mild increase shortness of breath and chest tightness. Patient was found to be Covid positive. She states her symptoms have since resolved. He reports her mild shortness of breath occurs when she has nasal congestion. Patient today denies chest pain, sustained palpitations, dyspnea, dizziness, syncope, edema, orthopnea, PND, or history of neural focal deficits. Her EKG showed sinus rhythm, her troponins are negative 3. Patient had a stress echocardiogram in 2016 which revealed a normal LV function with an ejection fraction of 55-60%, and was negative for ischemia. Patient with a Holter monitor in January 2021 ordered by her primary. This showed normal sinus rhythm with occasional PACs and PVCs. Will obtain an echocardiogram to evaluate myocardial function. DIAGNOSTICS EKG reveals sinus rhythm. Chest xray was negative for any acute cardiopulmonary disease or process of. Patient underwent a CTA of the chest which was negative for pulmonary embolism, did reveal small bilateral pleural effusions Laboratory reviewed, WBCs 3.9, hemoglobin 6.2, d-dimer positive, sodium 135, potassium 3.8, BUN 7, creatinine 0.81, magnesium 1.9, AST 33, ALT 20, troponins negative 3, proBNP 21, cholesterol 184, triglycerides 69, LDL 117, HDL 53, C ovid positive. Current cardiac medications include none Review of Systems REVIEW OF SYSTEMS At the time of my exam: CONSTITUTIONAL: Denies fever or chills. EYES: Negative for vision changes ENT: Negative for hearing loss CARDIOVASCULAR: Denies chest pain, shortness of breath, diaphoresis, orthopnea, PND or palpitations. VASCULAR: Denies edema RESPIRATORY: Reports cough. GASTROINTESTINAL: Denies abdominal pain, diarrhea, constipation, nausea or vomiting. MUSCULOSKELETAL: Denies myalgias. NEUROLOGIC: Denies numbness, tingling, headache or weakness. ENDOCRINE: Denies fatigue, weight change, polydipsia or polyurina. GENITOURINARY: Denies burning, hematuria or urgency with micturation. HEMATOLOGIC: Denies history of anemia or bleeding. DERMATOLOGY: Denies rash or skin sores PSYCH: Negative for depression or hallucinations. Past Medical History Past Medical History: GERD/Reflux, Thyroid Disorder Additional Past Medical History / Comment(s): overactive bladder History of Any Multi-Drug Resistant Organisms: None Reported Past Surgical History: Hysterectomy Additional Past Surgical History / Comment(s): partial hysterectomy, 09/11/14 thyroid removal Past Anesthesia/Blood Transfusion Reactions: No Reported Reaction Past Psychological History: No Psychological Hx Reported Smoking Status: Never smoker Past Alcohol Use History: Occasional Past Drug Use History: Marijuana Additional Drug Use History / Comment(s): occassional use of marijuana per pt - Past Family History Mother Family Medical History: Cancer, Hypertension Additional Family Medical History / Comment(s): colon cancer. maternal aunt with breast cancer age 40 Sister(s) Family Medical History: Cancer Additional Family Medical History / Comment(s): breast cancer age 49 Father Family Medical History: Hypertension Additional Family Medical History / Comment(s): paternal gradmother breast cancer age 80 Medications and Allergies Home Medications Medication Instructions Recorded Confirmed Type Cephalexin [Keflex] 500 mg PO TID 04/13/21 04/13/21 History Levothyroxine Sodium [Synthroid] 112 mcg PO DAILY 04/13/21 04/13/21 History Allergies Allergy/AdvReac Type Severity Reaction Status Date / Time No Known Allergies Allergy Verified 04/13/21 14:27 Physical Exam Vitals: Vital Signs Temp Pulse Pulse Pulse Resp BP BP 04/14/21 07:00 99.8 F H 89 18 100/59 04/14/21 04:23 99.9 F H 97 04/14/21 00:46 101.1 F H 97 18 112/74 04/13/21 18:47 100.1 F H 98 16 128/96 04/13/21 17:34 100.0 F H 96 18 125/82 04/13/21 16:03 89 19 117/71 Pulse Ox 04/14/21 07:00 99 04/14/21 04:23 99 04/14/21 00:46 99 04/13/21 18:47 99 04/13/21 17:34 99 04/13/21 16:03 100 Intake and Output 04/13/21 04/14/21 04/14/21 22:59 06:59 14:59 Output Total 0 0 Balance 0 0 Output: Emesis 0 0 Other: Weight 104.19 kg PHYSICAL EXAMINATION VITAL SIGNS: Reviewed CONSTITUTIONAL: No apparent distress. HEENT: Head is normocephalic. Pupils are equal, round. Sclerae anicteric. Mucous membranes of the mouth are moist. NECK: No JVD. No carotid bruit. RESPIRATORY: Lungs are diminished to auscultation. No chest wall tenderness is noted on palpation or with deep breathing. CARDIAC: Regular rate and rhythm. S1, S2 heard. No murmurs, gallops or rub. ABDOMEN: Soft, nontender. EXTREMITIES: 2+ peripheral pulses, no lower extremity edema and no calf tenderness. NEUROLOGIC EXAMINATION: Patient is awake, alert and oriented x3. INTEGUMENTARY: Warm, absent for rashes or sores PSYCH: Negative for depression or hallucinations, mood appropriate. Results 04/13/21 13:37 04/13/21 13:37 Cardiac Enzymes 04/13/21 04/13/21 04/13/21 Range/Units 13:37 13:37 17:29 AST 33 (14-36) U/L Troponin I <0.012 <0.012 (0.000-0.034) ng/mL 04/13/21 Range/Units 21:20 AST (14-36) U/L Troponin I <0.012 (0.000-0.034) ng/mL Coagulation 04/13/21 Range/Units 13:37 PT 10.5 (9.0-12.0) sec APTT 28.4 (22.0-30.0) sec Lipids 04/13/21 Range/Units 13:37 Triglycerides 69.70 (0.00-149.00) mg/dL Cholesterol 184.00 (0.00-200.00) mg/dL HDL Cholesterol 53.10 (40.00-60.00) mg/dL Cholesterol/HDL Ratio 3.47 Ratio CBC 04/13/21 Range/Units 13:37 WBC 3.9 (3.8-10.6) k/uL RBC 5.09 (3.80-5.40) m/uL Hgb 16.2 H (11.4-16.0) gm/dL Hct 49.0 H (34.0-46.0) % Plt Count 311 (150-450) k/uL Comprehensive Metabolic Panel 04/13/21 Range/Units 13:37 Sodium 135 L (137-145) mmol/L Potassium 3.8 (3.5-5.1) mmol/L Chloride 103 (98-107) mmol/L Carbon Dioxide 26 (22-30) mmol/L BUN 7 (7-17) mg/dL Creatinine 0.81 (0.52-1.04) mg/dL Glucose 88 (74-99) mg/dL Calcium 9.4 (8.4-10.2) mg/dL AST 33 (14-36) U/L ALT 20 (4-34) U/L Alkaline Phosphatase 97 (38-126) U/L Total Protein 8.3 H (6.3-8.2) g/dL Albumin 4.3 (3.5-5.0) g/dL Current Medications Generic Name Dose Route Start Last Admin Trade Name Freq PRN Reason Stop Dose Admin Acetaminophen 650 mg 04/13/21 18:27 04/14/21 04:20 Acetaminophen Tab 325 Mg Tab PO 650 mg Q6HR PRN Administration Fever and/ or Pain Albuterol Sulfate 2 puff 04/14/21 16:00 Albuterol Hfa Inhaler INHALATION RT-QID [facility] Aspirin 325 mg 04/14/21 09:00 04/14/21 08:38 Aspirin 325 Mg Tab PO 325 mg DAILY MAUREEN Administration Methylprednisolone Sodium 100 mls @ 200 mls/hr 04/14/21 13:30 Succinate 250 mg/ Sodium IVPB Chloride Q6HR [facility] Levothyroxine Sodium 112 mcg 04/14/21 06:30 04/14/21 05:27 Levothyroxine 112 Mcg Tab PO 112 mcg DAILY@0630 MAUREEN Administration Nitroglycerin 0.4 mg 04/13/21 16:10 Nitroglycerin Sl Tabs 0.4 Mg Tab SUBLINGUAL Q5M PRN Chest Pain Sodium Chloride 10 ml 04/13/21 21:00 04/14/21 11:18 Sodium Chloride 0.9% Flush 10 Ml Syringe IV 10 ml BID MAUREEN Administration Intake and Output 04/13/21 04/14/21 04/14/21 22:59 06:59 14:59 Output Total 0 0 Balance 0 0 Output: Emesis 0 0 Other: Weight 104.19 kg 04/13/21 13:37 04/13/21 13:37 Assessment and Plan Assessment: Atypical chest pain increased shortness of breath secondary to Covid positive Troponins negative 3 Small bilateral pleural effusions found on CTA Positive d-dimer negative for pulmonary embolism per CTA Plan: Will obtain echocardiogram to evaluate myocardial function Will obtain EKG tomorrow morning Continue with telemetry monitoring increase activity as tolerated Further recommendations based on clinical course. The above impression and plan of care have been discussed and directed by the signing physician. Zena Ramos, nurse practitioner, acting as scribe for signing physician.
[2021-04-14] MEDS: ALBUTEROL HFA INHALER INHALATION SCH ×2 (17:18→20:19)
[2021-04-15] MEDS: LEVOTHYROXINE 112 MCG TAB PO SCH (05:33)
[2021-04-15] MEDS: ASPIRIN 325 MG TAB PO SCH (07:09)
[2021-04-15] MEDS: ACETAMINOPHEN TAB 325 MG TAB PO PRN ×3 (07:09→20:42)
[2021-04-15] MEDS: ALBUTEROL HFA INHALER INHALATION SCH ×4 (08:08→19:55)
[2021-04-15] MEDS: ALPRAZolam 0.25 MG TAB PO PRN ×2 (12:14→20:42)
--- NOTE | 2021-04-15 13:37 | P.PN ---
Subjective HISTORY OF PRESENTING ILLNESS This is a pleasant 45-year-old female with a past medical history significant for GERD and thyroid disorder. Patient has no known cardiac history. She does have a cardiac family history, her brother has recently had a heart attack. She follows in the office with Dr Leach. She has not been seen in the office since 2013. We have been asked to see in consultation for chest pain. Patient presents to the emergency department with nasal congestion, cough, chest pain and shortness of breath. Patient was found to be Covid positive. Her EKG showed sinus rhythm, her troponins are negative 3. Patient had a stress echocardiogram in 2016 which revealed a normal LV function with an ejection fraction of 55-60%, and was negative for ischemia. Patient with a Holter monitor in January 2021 ordered by her primary. This showed normal sinus rhythm with occasional PACs and PVCs. 04/15/2021 Patient seen and examined at bedside, no acute distress. She denies any further chest pain. Denies shortness of breath Telemetry reviewed, patient in sinus mechanism, heart rate trends 70s to 90s, couple episodes of sinus tachycardia. Vitals: Reviewed GENERAL: Well-appearing, well-nourished and in no acute distress. NECK: Supple without JVD or thyromegaly. LUNGS: Respiration equal and unlabored. HEART: Regular rate and rhythm without murmurs, rubs or gallops. S1 and S2 heard. EXTREMITIES: Normal range of motion, no edema. ASSESSMENT Chest pain, atypical, coronary syndrome has been ruled out Covid 19 infection PLAN 2D echocardiogram reviewed by Dr. Pang, patient with normal left ventricular systolic function, no significant wall motion abnormalities. We will sign off at this time. Please reconsult if needed. Nurse Practitioner note has been reviewed, I agree with a documented findings and plan of care. Patient was seen and examined. Objective - Vital Signs Vital signs: Vital Signs Temp 98.6 F 04/15/21 08:00 Pulse 82 04/15/21 08:00 Resp 18 04/15/21 08:00 BP 123/79 04/15/21 08:00 Pulse Ox 97 04/15/21 08:00 Intake & Output 04/14/21 04/15/21 04/15/21 18:59 06:59 18:59 Intake Total 360 240 Balance 360 240 Intake: Oral 360 240 Other: Voiding Method Toilet # Voids 3 1 - Labs CBC & Chem 7: 04/13/21 13:37 04/13/21 13:37
--- NOTE | 2021-04-15 15:56 | ECHOF ---
Referral Reason:chest pain MEASUREMENTS -------- HEIGHT: 160.0 cm WEIGHT: 103.9 kg BP: 104/66 IVSd: 1.3 cm (0.6 - 1.1) LVIDd: 4.0 cm (3.9 - 5.3) LVPWd: 1.1 cm (0.6 - 1.1) IVSs: 1.5 cm LVIDs: 3.2 cm LVPWs: 1.6 cm LAESV Index (A-L): 24.87 ml/m MV E Doc: 0.94 m/s MV DecT: 233 ms MV A Doc: 0.85 m/s MV E/A Ratio: 1.11 RAP: 5.00 mmHg RVSP: 24.32 mmHg FINDINGS -------- Sinus rhythm. This was a technically adequate study. The left ventricular size is normal. There is mild concentric left ventricular hypertrophy. Overa ll left ventricular systolic function is low-normal with, an EF between 50 - 55 %. The right ventricle is normal in size. Normal LA size by volume 22+/-6 ml/m2. The right atrial size is normal. Interatrial and interventricular septum intact. Mobile interatrial septum. There is no evidence of aortic regurgitation. There is no evidence of aortic stenosis. There is trace mitral regurgitation. Mild tricuspid regurgitation present. There is no evidence of pulmonary hypertension. The right v entricular systolic pressure, as measured by Doppler, is 24.32mmHg. There is no pulmonic regurgitation present. The aortic root size is normal. Normal inferior vena cava with normal inspiratory collapse consistent with estimated right atrial pre ssure of 5 mmHg. There is no pericardial effusion. CONCLUSIONS -------- 1. The left ventricular size is normal. 2. There is mild concentric left ventricular hypertrophy. 3. Overall left ventricular systolic function is low-normal with, an EF between 50 - 55 %. 4. Mild tricuspid regurgitation present. [employer]: Sandy Vivar RDCS
--- NOTE | 2021-04-15 17:24 | XR ---
EXAMINATION TYPE: XR chest 1V portable DATE OF EXAM: 04/15/2021 COMPARISON: 04/13/2021 HISTORY: Shortness breath TECHNIQUE: Single view FINDINGS: Heart and mediastinum are normal. Lungs are clear Diaphragm is normal. Bony thorax is intact. There are chest leads. IMPRESSION: Normal chest. No change.
[2021-04-15] MEDS: PANTOPRAZOLE 40 MG TABLET PO SCH (17:59)
[2021-04-15] MEDS: polyethylene glycoL 3350 17 GM POWD.PACK PO SCH (18:00)
[2021-04-16] MEDS: LEVOTHYROXINE 112 MCG TAB PO SCH (05:30)
[2021-04-16] MEDS: PANTOPRAZOLE 40 MG TABLET PO SCH (08:05)
[2021-04-16] MEDS: ASPIRIN 81 MG PO SCH (08:05)
[2021-04-16] MEDS: polyethylene glycoL 3350 17 GM POWD.PACK PO SCH (08:06)
[2021-04-16] MEDS: ALBUTEROL HFA INHALER INHALATION SCH ×4 (08:16→20:11)
[2021-04-16] MEDS: ACETAMINOPHEN TAB 325 MG TAB PO PRN ×2 (12:49→23:04)
[2021-04-16] MEDS: ALPRAZolam 0.25 MG TAB PO PRN ×2 (12:49→22:28)
--- NOTE | 2021-04-16 16:37 | PN ---
PROGRESS NOTE CHIEF COMPLAINT: Weakness, malaise, leg pain and Covid 19. HISTORY OF PRESENT ILLNESS: This lady is still having some pain in the thighs and studies have been negative so far. She denies any shortness of breath, fever, chills, etc. She does have a slight cough. PHYSICAL EXAMINATION: Her chest is fairly clear. There are occasional rhonchi and occasional rales scattered about. Cardiac exam is normal. Abdomen is soft, nontender and legs are normal. IMPRESSION: 1. Leg pain, etiology unknown. 2. Cough. 3. Bronchitis. 4. Covid-19. PLAN: Continue with current management and continue to monitor her pulmonary symptoms and temperature. MMODL / IJN: [id number] /
--- NOTE | 2021-04-16 17:01 | PN ---
PROGRESS NOTE CHIEF COMPLAINT: Covid. HISTORY OF PRESENT ILLNESS: This lady is doing a little bit better. Legs are no longer bothering her. She is less short of breath, but she still has slight cough. She remains quite weak. She is afebrile. PHYSICAL EXAMINATION: Chest is clear. There are no rales. Cardiac exam is normal. Abdomen is soft, nontender. IMPRESSION: 1. Covid-19. 2. Myalgias-resolving. 3. Generalized weakness. PLAN: Try to increase activity and probably home tomorrow. MMODL / IJN: [id number] /
[2021-04-16] MEDS ORDERED: FLUCONAZOLE 150 MG TAB PO STA (18:26)
[2021-04-17] MEDS: LEVOTHYROXINE 112 MCG TAB PO SCH (05:19)
[2021-04-17] MEDS: ALBUTEROL HFA INHALER INHALATION SCH ×4 (09:13→20:42)
[2021-04-17] MEDS: ASPIRIN 81 MG PO SCH (10:07)
[2021-04-17] MEDS: PANTOPRAZOLE 40 MG TABLET PO SCH (10:07)
[2021-04-17] MEDS: polyethylene glycoL 3350 17 GM POWD.PACK PO SCH (10:07)
[2021-04-17] MEDS: ACETAMINOPHEN TAB 325 MG TAB PO PRN ×2 (11:00→21:59)
[2021-04-17] MEDS: ALPRAZolam 0.25 MG TAB PO PRN ×2 (12:18→21:59)
[2021-04-17 15:31] VITALS: RESP 16
[2021-04-18] MEDS: LEVOTHYROXINE 112 MCG TAB PO SCH (05:44)
[2021-04-18] MEDS: ALBUTEROL HFA INHALER INHALATION SCH (07:41)
[2021-04-18 07:56] VITALS: BP 124/73; PULSE 64; TEMP 98.6
[2021-04-18] MEDS: ASPIRIN 81 MG PO SCH (08:46)
[2021-04-18] MEDS: PANTOPRAZOLE 40 MG TABLET PO SCH (08:46)
[2021-04-18] MEDS: ACETAMINOPHEN TAB 325 MG TAB PO PRN (08:46)
[2021-04-18] MEDS: ALPRAZolam 0.25 MG TAB PO PRN (08:46)
[2021-04-18] MEDS: polyethylene glycoL 3350 17 GM POWD.PACK PO SCH (08:47)
--- NOTE | 2021-04-18 18:21 | PN ---
PROGRESS NOTE DATE OF SERVICE: 04/18/2021 CHIEF COMPLAINT: Covid-19. HISTORY OF PRESENT ILLNESS: This lady could not get a ride home last night and is going home today. PHYSICAL EXAMINATION: She is afebrile. Chest is clear. Cardiac exam is normal. T he abdomen is soft and nontender. IMPRESSION: Covid-19. PLAN: She expects to be able to get a ride home today. MMODL / IJN: [id number] /
--- NOTE | 2021-04-18 18:30 | DS ---
DISCHARGE SUMMARY CHIEF COMPLAINT: Weakness, pain in the thighs and a positive Covid test. HISTORY OF PRESENT ILLNESS AND PHYSICAL EXAMINATION: Details of this lady's history and physical can be found in the initial workup. LABORATORY STUDIES: While she was in the hospital she had laboratory studies, details of which can be found in the laboratory section of her chart. COURSE IN THE HOSPITAL: After admission she was placed on bedrest, started on intravenous fluids and monitored for any Covid symptoms including shortness of breath, chest pain, etc. She did well. She had no further difficulties. It was felt that she could be discharged on the and she will go home on light activity about the house and no medications. She will follow up in the office in several days. FINAL DIAGNOSIS: Covid pneumonitis. OPERATIONS: None. CONSULTATIONS: None. She is improved. MMODL / SHERINN: [id number] /
== END 2021-04-18 09:14 | disposition home or self-care (01) ==
LOC: EC 11:53 → 6NMEDSUR 16:11
PROVIDERS: ADMIT Family Medicine; ATTEND Family Medicine
DX: U07.1 COVID-19 (principal); J12.82 Pneumonia due to coronavirus disease 2019; J40 Bronchitis, not specified as acute or chronic; J90 Pleural effusion, not elsewhere classified; I49.3 Ventricular premature depolarization; I49.1 Atrial premature depolarization; I07.1 Rheumatic tricuspid insufficiency; R79.89 Other specified abnormal findings of blood chemistry; M79.652 Pain in left thigh; M79.651 Pain in right thigh; K21.9 Gastro-esophageal reflux disease without esophagitis; R53.1 Weakness; N32.81 Overactive bladder; M79.10 Myalgia, unspecified site; F41.9 Anxiety disorder, unspecified; Z79.890 Hormone replacement therapy; Z90.711 Acquired absence of uterus with remaining cervical stump; E89.0 Postprocedural hypothyroidism; Z80.0 Family history of malignant neoplasm of digestive organs; Z80.3 Family history of malignant neoplasm of breast; Z82.49 Family history of ischemic heart disease and other diseases of the circulatory system
CPT/HCPCS: 96365; 96366 ×4; 99285; 36415; 94640 ×9; 93005; 93306; 85379; 83880; 80061; 80053; 83735; 84484; 85025; 85610; 85730; 87635; 71045; 71046; 71275; G0378 ×6; J2930 ×4; Q9967

== ENCOUNTER 2021-04-20 22:33 | Inpatient (IN) | payer OTHER ==
[2021-04-20] MEDS ORDERED: SODIUM CHLORIDE 0.9% 1,000 ML IV STA (22:43)
--- NOTE | 2021-04-20 23:42 | XR ---
EXAMINATION TYPE: XR chest 2V DATE OF EXAM: 04/20/2021 COMPARISON: 04/15/2021 HISTORY: Short of breath TECHNIQUE: Single view FINDINGS: There is no heart failure or confluent pneumonic infiltrate. Heart and mediastinum are norm al. Exam limited by overlying artifact. Costophrenic angles are clear. There are chest leads. IMPRESSION: No active cardiopulmonary disease. No change
[2021-04-20 23:52] LABS: Basophils # (A) 0.1 k/uL (0-0.2); Basophils % (A) 0 %; Eosinophils # (A) 0.1 k/uL (0-0.7); Eosinophils % (A) 0 %; HCT 49.6 % (34.0-46.0); HGB 16.3 gm/dL (11.4-16.0); Lymphocytes # (A) 0.7 k/uL (1.0-4.8); Lymphocytes % (A) 3 %; MCH 30.8 pg (25.0-35.0); MCHC 32.8 g/dL (31.0-37.0); MCV 93.9 fL (80.0-100.0); Mean Platelet Volume 9.5; Monocytes # (A) 0.8 k/uL (0-1.0); Monocytes % (A) 4 %; Neutrophils % (A) 92 %; Platelet Count 308 k/uL (150-450); RBC 5.29 m/uL (3.80-5.40); RDW 12.8 % (11.5-15.5); WBC 22.8 k/uL (3.8-10.6)
[2021-04-21] MEDS ORDERED: IBUPROFEN 600 MG TAB PO STA (01:20)
[2021-04-21] MEDS ORDERED: ACETAMINOPHEN TAB 500 MG TAB PO STA (01:20)
[2021-04-21 01:29] LABS: ALT 25 U/L (4-34); African American GFR (CKD) >90 (>60 ml/min/1.73 sqM); Anion Gap 12 mmol/L; Blood Urea Nitrogen 11 mg/dL (7-17); Calcium 9.2 mg/dL (8.4-10.2); Carbon Dioxide 27 mmol/L (22-30); Chloride 98 mmol/L (98-107); Glucose 109 mg/dL (74-99); Non-African American GFR(CKD) >90 (>60 ml/min/1.73 sqM); Sodium 137 mmol/L (137-145); Total Bilirubin 1.4 mg/dL (0.2-1.3)
--- NOTE | 2021-04-21 01:29 | ED ---
SOB HPI - General Source: patient, RN notes reviewed Mode of arrival: ambulatory <Lemuel Harrington - Last Filed: 04/21/21 02:57> <Homer Dow - Last Filed: 04/21/21 03:03> - General Chief Complaint: Shortness of Breath Stated Complaint: covid+, low o2 Time Seen by Provider: 04/20/21 22:42 - History of Present Illness Initial Comments: Patient is a 45-year-old female that presents to the emergency department complaining of shortness of breath. Patient states tested positive for Covid on 11 but did not received monoclonal antibodies. Patient returns today complaining of continuing symptoms. She noted that she just doesn't feel well. Patient did appear to be under the weather. She denied any chest pain headache diarrhea constipation fatigue chills. (Lemuel Harrington) - Related Data Home Medications Medication Instructions Recorded Confirmed Levothyroxine Sodium [Synthroid] 112 mcg PO DAILY 04/13/21 04/20/21 Previous Rx's Medication Instructions Recorded predniSONE 50 mg PO DAILY #5 tab 04/21/21 Allergies Allergy/AdvReac Type Severity Reaction Status Date / Time No Known Allergies Allergy Verified 04/20/21 23:23 Review of Systems ROS Other: All systems not noted in ROS Statement are negative. <Lemuel Harrington - Last Filed: 04/21/21 02:57> ROS Other: All systems not noted in ROS Statement are negative. <Homer Dow - Last Filed: 04/21/21 03:03> ROS Statement: Those systems with pertinent positive or pertinent negative responses have been documented in the HPI. Past Medical History Past Medical History: GERD/Reflux, Thyroid Disorder Additional Past Medical History / Comment(s): overactive bladder History of Any Multi-Drug Resistant Organisms: None Reported Past Surgical History: Hysterectomy Additional Past Surgical History / Comment(s): partial hysterectomy, 09/11/14 thyroid removal Past Anesthesia/Blood Transfusion Reactions: No Reported Reaction Past Psychological History: Anxiety Smoking Status: Never smoker Past Alcohol Use History: Occasional Past Drug Use History: Marijuana - Past Family History Mother Family Medical History: Cancer, Hypertension Additional Family Medical History / Comment(s): colon cancer. maternal aunt with breast cancer age 40 Sister(s) Family Medical History: Cancer Additional Family Medical History / Comment(s): breast cancer age 49 Father Family Medical History: Hypertension Additional Family Medical History / Comment(s): paternal gradmother breast cancer age 80 <Lemuel Harrington - Last Filed: 04/21/21 02:57> General Exam General appearance: alert, in no apparent distress, obese Head exam: Present: atraumatic, normocephalic, normal inspection Eye exam: Present: normal appearance, PERRL, EOMI. Absent: scleral icterus, conjunctival injection, periorbital swelling ENT exam: Present: normal exam, mucous membranes moist Neck exam: Present: normal inspection Respiratory exam: Present: normal lung sounds bilaterally. Absent: respiratory distress, wheezes, rales, rhonchi, stridor Cardiovascular Exam: Present: regular rate, normal rhythm, normal heart sounds. Absent: systolic murmur, diastolic murmur, rubs, gallop, clicks GI/Abdominal exam: Present: soft, normal bowel sounds. Absent: distended, t enderness, guarding, rebound, rigid Extremities exam: Present: normal inspection, full ROM, normal capillary refill. Absent: tenderness, pedal edema, joint swelling, calf tenderness Neurological exam: Present: alert, oriented X3 Psychiatric exam: Present: normal affect, normal mood Skin exam: Present: warm, dry, intact, normal color. Absent: rash <Lemuel Harrington - Last Filed: 04/21/21 02:57> Course <Homer Dow - Last Filed: 04/21/21 03:03> Vital Signs 04/20/21 04/20/21 04/21/21 22:34 23:57 02:00 Temperature 100.7 F H 100.1 F H 98.8 F Pulse Rate 121 H 101 H 104 H Respiratory 24 18 18 Rate Blood Pressure 118/107 144/76 134/86 O2 Sat by Pulse 87 L 96 95 Oximetry - Consultations Consultation #1: Dr. Hannah who agrees to admit this patient (Homer Dow) Medical Decision Making - Lab Data Result diagrams: 04/20/21 23:37 04/20/21 23:37 - EKG Data -: EKG Interpreted by In EKG shows normal: sinus rhythm Rate: tachycardia - Radiology Data Radiology results: report reviewed, image reviewed <Lemuel Harrington - Last Filed: 04/21/21 02:57> - Lab Data Result diagrams: 04/20/21 23:37 04/20/21 23:37 <Homer Dow - Last Filed: 04/21/21 03:03> - Medical Decision Making 45-year-old female complaining of increased shortness of breath and continuing Covid like symptoms. Labs, EKG, chest x-ray him a 1 L normal saline, 1000 mg Tylenol, 600 mg of Motrin ordered. Chest x-ray: No active card up on her process. No change. Labs White blood cells 22, elevated d-dimer, rest labs unremarkable. Given patient's recent discharge from the hospital with similar complaint and negative CT of the chest and being hypoxic upon arrival patient will be admitted. Case discussed and signed out to Dr. Dow. (Lemuel Harrington) - Lab Data Lab Results 04/20/21 04/20/21 04/20/21 Range/Units 23:37 23:37 23:37 WBC 22.8 H (3.8-10.6) k/uL RBC 5.29 (3.80-5.40) m/uL Hgb 16.3 H (11.4-16.0) gm/dL Hct 49.6 H (34.0-46.0) % MCV 93.9 (80.0-100.0) fL MCH 30.8 (25.0-35.0) pg MCHC 32.8 (31.0-37.0) g/dL RDW 12.8 (11.5-15.5) % Plt Count 308 (150-450) k/uL MPV 9.5 Neutrophils % 92 % Lymphocytes % 3 % Monocytes % 4 % Eosinophils % 0 % Basophils % 0 % Neutrophils # 21.0 H (1.3-7.7) k/uL Lymphocytes # 0.7 L (1.0-4.8) k/uL Monocytes # 0.8 (0-1.0) k/uL Eosinophils # 0.1 (0-0.7) k/uL Basophils # 0.1 (0-0.2) k/uL PT (9.0-12.0) sec INR (<1.2) APTT (22.0-30.0) sec D-Dimer (<0.60) mg/L FEU Sodium 137 (137-145) mmol/L Potassium 4.4 (3.5-5.1) mmol/L Chloride 98 (98-107) mmol/L Carbon Dioxide 27 (22-30) mmol/L Anion Gap 12 mmol/L BUN 11 (7-17) mg/dL Creatinine 0.65 (0.52-1.04) mg/dL Est GFR (CKD-EPI)AfAm >90 (>60 ml/min/1.73 sqM) Est GFR (CKD-EPI)NonAf >90 (>60 ml/min/1.73 sqM) Glucose 109 H (74-99) mg/dL Calcium 9.2 (8.4-10.2) mg/dL Total Bilirubin 1.4 H (0.2-1.3) mg/dL AST 50 H (14-36) U/L ALT 25 (4-34) U/L Alkaline Phosphatase 99 (38-126) U/L Troponin I 0.017 (0.000-0.034) ng/mL Total Protein 7.6 (6.3-8.2) g/dL Albumin 3.6 (3.5-5.0) g/dL 04/21/21 Range/Units 02:02 WBC (3.8-10.6) k/uL RBC (3.80-5.40) m/uL Hgb (11.4-16.0) gm/dL Hct (34.0-46.0) % MCV (80.0-100.0) fL MCH (25.0-35.0) pg MCHC (31.0-37.0) g/dL RDW (11.5-15.5) % Plt Count (150-450) k/uL MPV Neutrophils % % Lymphocytes % % Monocytes % % Eosinophils % % Basophils % % Neutrophils # (1.3-7.7) k/uL Lymphocytes # (1.0-4.8) k/uL Monocytes # (0-1.0) k/uL Eosinophils # (0-0.7) k/uL Basophils # (0-0.2) k/uL PT 11.4 (9.0-12.0) sec INR 1.1 (<1.2) APTT 26.7 (22.0-30.0) sec D-Dimer 1.02 H (<0.60) mg/L FEU Sodium (137-145) mmol/L Potassium (3.5-5.1) mmol/L Chloride (98-107) mmol/L Carbon Dioxide (22-30) mmol/L Anion Gap mmol/L BUN (7-17) mg/dL Creatinine (0.52-1.04) mg/dL Est GFR (CKD-EPI)AfAm (>60 ml/min/1.73 sqM) Est GFR (CKD-EPI)NonAf (>60 ml/min/1.73 sqM) Glucose (74-99) mg/dL Calcium (8.4-10.2) mg/dL Total Bilirubin (0.2-1.3) mg/dL AST (14-36) U/L ALT (4-34) U/L Alkaline Phosphatase (38-126) U/L Troponin I (0.000-0.034) ng/mL Total Protein (6.3-8.2) g/dL Albumin (3.5-5.0) g/dL - EKG Data EKG Comments: Ventricular rate 108 bpm, ID interval 114 ms, QRS duration 82 ms, QTC 434 ms. Sinus tachycardia, right atrial enlargement, left axis deviation, moderate voltage criteria for LVH may be normal variant, cannot rule out septal infarct, age undetermined marked ST abnormality possible inferior subendocardial injury. Abnormal ECG. (Lemuel Harrington) - Radiology Data Chest x-ray: No active cardiopulmonary process. No change. (Lemuel Harrington) Disposition <Lemuel Harrington - Last Filed: 04/21/21 02:57> <Homer Dow - Last Filed: 04/21/21 03:03> Clinical Impression: COVID-19, Hypoxia, Coronavirus infection Disposition: ADMITTED IP TO THIS HOSP Condition: Fair Prescriptions: predniSONE 50 mg PO DAILY #5 tab Referrals: Foreign Hannah MD [Primary Care Provider] - 1-2 days
[2021-04-21 01:43] LABS: AST 50 U/L (14-36); Albumin 3.6 g/dL (3.5-5.0); Alkaline Phosphatase 99 U/L (38-126); Potassium 4.4 mmol/L (3.5-5.1); Total Protein 7.6 g/dL (6.3-8.2)
[2021-04-21 02:36] LABS: INR 1.1 (<1.2); Partial Thromboplastin Time 26.7 sec (22.0-30.0); Prothrombin Time 11.4 sec (9.0-12.0)
[2021-04-21] MEDS ORDERED: NALOXONE 0.4 MG/ML 1 ML VIAL IV PRN (03:01)
[2021-04-21] MEDS ORDERED: IBUPROFEN 400 MG TAB PO PRN (03:01)
[2021-04-21] MEDS ORDERED: ONDANSETRON 4 MG/2 ML VIAL IVP PRN (03:01)
[2021-04-21] MEDS: SODIUM CHLORIDE 0.9% 1,000 ML IV SCH ×3 (03:33→22:30)
[2021-04-21] MEDS: PANTOPRAZOLE 40 MG/10 ML VIAL IV SCH (09:39)
[2021-04-21] MEDS: LEVOTHYROXINE 112 MCG TAB PO SCH (13:00)
[2021-04-21] MEDS: ALBUTEROL HFA INHALER INHALATION SCH ×2 (17:05→19:51)
[2021-04-21] MEDS: SYMBICORT 160-4.5 MCG INHALER INHALATION SCH (19:50)
[2021-04-22] MEDS: SODIUM CHLORIDE 0.9% 1,000 ML IV SCH ×3 (03:38→20:38)
[2021-04-22] MEDS: PANTOPRAZOLE 40 MG/10 ML VIAL IV SCH (07:28)
[2021-04-22] MEDS: LEVOTHYROXINE 112 MCG TAB PO SCH (07:28)
[2021-04-22] MEDS: SYMBICORT 160-4.5 MCG INHALER INHALATION SCH ×2 (08:03→20:59)
[2021-04-22] MEDS: ALBUTEROL HFA INHALER INHALATION SCH ×4 (08:03→20:59)
--- NOTE | 2021-04-22 11:33 | XR ---
EXAMINATION TYPE: XR chest 1V portable DATE OF EXAM: 04/22/2021 COMPARISON: Chest x-ray 04/20/2021 HISTORY: Covid infection TECHNIQUE: Single frontal view of the chest is obtained. FINDINGS: Overlying artifact noted, right hemidiaphragm is elevated. No evident pneumothorax or pleu ral effusion. Cardiac mediastinal silhouette is stable. Suspect some minimal patchy basilar density i s present. IMPRESSION: Correlate for pneumonia versus basilar atelectasis, follow-up as indicated.
[2021-04-22 11:39] LABS: Magnesium 2.1 mg/dL (1.5-2.4); Phosphorus 2.6 mg/dL (2.4-5.1)
[2021-04-22 11:42] LABS: HCT 44.1 % (37.2-46.3); HGB 14.1 g/dL (12.0-15.0); MCH 30.5 pg (27.0-32.0); MCV 95.5 fL (80.0-97.0); Mean Platelet Volume 11.1 fL (9.5-12.2); NRBC Per 100 WBC 0 /100 WBCS (0.0-0.0); Platelet Count 324 X 10*3/uL (140-440); RBC 4.62 X 10*6/uL (4.10-5.20); RDW 14.1 % (11.5-14.5); WBC 11.69 X 10*3/uL (4.50-10.00)
[2021-04-22 11:43] LABS: Basophils # (M) 0 X 10*3/uL (0.00-0.10); Eosinophils # (M) 0 X 10*3/uL (0.04-0.35); Lymphocytes # (M) 0.58 X 10*3/uL (0.90-5.00); Metamyelocytes % 1 % (0-0); Monocytes # (M) 0.12 X 10*3/uL (0.20-1.00); Myelocytes % 3 % (0-0); Neutrophils # (M) 10.52 X 10*3/uL (2.00-8.90); Neutrophils % (M) 90 %
[2021-04-22 11:44] LABS: African American GFR (CKD) 129.1 (60.0-200.0); Albumin 2.9 g/dL (3.8-4.9); Albumin/Globulin Ratio 0.96 (1.60-3.17); Anion Gap 16.3 mmol/L (10.00-18.00); BUN/Creat Ratio 12.64 Ratio (12.00-20.00); Blood Urea Nitrogen 7.5 mg/dL (9.0-27.0); Calcium 8.7 mg/dL (8.7-10.3); Carbon Dioxide 23.2 mmol/L (20.0-27.5); Non-African American GFR(CKD) 111.4 (60.0-200.0); Potassium 3.7 mmol/L (3.5-5.5); Total Bilirubin 0.5 mg/dL (0.30-1.20)
--- NOTE | 2021-04-22 17:55 | HP ---
HISTORY AND PHYSICAL CHIEF COMPLAINT: Shortness of breath, fever and Covid. HISTORY OF PRESENT ILLNESS: This is a readmission for this 45-year-old -[place] female. She was in the hospital last week for Covid and went home and started to have more trouble with shortness of breath. She came back to the emergency room with an elevated white count and low-grade fever. Chest x-ray was clear. REVIEW OF SYSTEMS: She is having some shortness of breath, but her pulse ox was generally in the 90s, although it was in the high 80s in the emergency room. She has had no hemoptysis, nausea, vomiting, diarrhea, etc. Past medical history, family history, and personal and social histories are all unchanged from her recent admitting and discharge summaries. PHYSICAL EXAMINATION: Blood pressure 130/78 with a pulse of 86, respirations of 35, and temperature 99.8. In general, she appeared to be well developed, well nourished and slightly overweight. She did not seem to be in respiratory distress. Head, ears, eyes, nose, mouth and throat were normal. Chest demonstrated normal breath sounds and there were not any significant rales or rhonchi. Cardiac exam is normal. Abdomen is soft, nontender. Extremities: Normal. Neurologically, she is intact. IMPRESSION: She is admitted with diagnoses of: 1. Covid-19. 2. Low-grade fever. 3. Leukocytosis. 4. Shortness of breath. PLAN: Placed back on bedrest with Symbicort and albuterol and follow her pulse ox. MMODL / IJN: [id number] /
--- NOTE | 2021-04-22 18:04 | PN ---
PROGRESS NOTE CHIEF COMPLAINT: Covid pneumonia. HISTORY OF PRESENT ILLNESS: This lady is feeling better. She is a little bit stronger. Temperature is down. She has not had any particular shortness of breath. PHYSICAL EXAMINATION: Chest is clear. Cardiac exam is normal. Abdomen is soft, nontender. IMPRESSION: 1. Covid-19. 2. Leukocytosis. 3. Low-grade fever. PLAN: Continue on current management until her temperature subsides. MMODL / IJN: [id number] /
[2021-04-23] MEDS: SODIUM CHLORIDE 0.9% 1,000 ML IV SCH ×3 (00:31→16:52)
[2021-04-23] MEDS: LEVOTHYROXINE 112 MCG TAB PO SCH (05:45)
[2021-04-23] MEDS: SYMBICORT 160-4.5 MCG INHALER INHALATION SCH ×3 (09:21→21:29)
[2021-04-23] MEDS: ALBUTEROL HFA INHALER INHALATION SCH ×4 (09:21→21:29)
[2021-04-23] MEDS: PANTOPRAZOLE 40 MG TABLET PO SCH (11:32)
--- NOTE | 2021-04-23 18:17 | PN ---
PROGRESS NOTE DATE OF SERVICE: 04/23/2021 CHIEF COMPLAINT: COVID. HISTORY OF PRESENT ILLNESS: This lady is doing fairly well. She is not particularly short of breath. As long as she is on the oxygen, her pulse ox stays well into the 90s. She is not having any chest pain, chills, etc. PHYSICAL EXAMINATION: Her chest is clear. Cardiac exam is normal. Abdomen is soft, nontender. IMPRESSION: COVID pneumonia. PLAN: Continue with nasal oxygen, steroids and nebulizers. MMODL / IJN: [id number] /
[2021-04-23] MEDS: ACETAMINOPHEN TAB 325 MG TAB PO PRN (21:51)
[2021-04-24] MEDS: SODIUM CHLORIDE 0.9% 1,000 ML IV SCH ×3 (01:17→16:36)
[2021-04-24] MEDS: LEVOTHYROXINE 112 MCG TAB PO SCH (05:44)
[2021-04-24] MEDS: SYMBICORT 160-4.5 MCG INHALER INHALATION SCH ×3 (07:47→20:08)
[2021-04-24] MEDS: ALBUTEROL HFA INHALER INHALATION SCH ×4 (07:47→20:05)
[2021-04-24] MEDS: PANTOPRAZOLE 40 MG TABLET PO SCH (09:07)
--- NOTE | 2021-04-24 11:54 | P.CNPUL ---
History of Present Illness Consult date: 04/24/21 Reason for consult: dyspnea, hypoxemia History of present illness: I was consulted on this 45-year-old here patient because of coronary related p neumonia. The patient came into the emergency department because of shortness of breath. She was seen in the ED on 04/20/2021. She is currently on 15 L NRB of oxygen by nasal cannula. Her chest x-ray showing bilateral pulmonary infiltrates and I compared to chest x-ray from 04/20/2021 and 04/22/2021 and there is no significant interval change in the reservoir infiltrates. The patient is currently on 15 L NRB. Inflammatory markers showed a d-dimer of 1.02. The rest of the inflammatory markers have not been obtained. White cell count 11.6 with a hemoglobin of 14. The white cell count admission was 22.8. Meanwhile, the patient had a normal coagulation profile, electrolytes were all n ormal, BUN was at 7 with a creatinine of 0.6, LFTs are normal, COVID 19 testing came back positive on 04/21/2021. She is currently receiving oxygen therapy at 15 L NRB . She is also on no additional treatment. The patient got admitted to the hospital on 04/21/2021. There is the patient's second admission. She was originally hospitalized from 04/13/2021 through 04/18/2021 for COVID 19 related pneumonia. At that time, the patient was treated and she required no oxygen therapy. The patient was discharged home on Keflex. Patient presented back to the hospital because of worsening shortness of breath. She came into the emergency department on 04/20/2021. Note that the patient started getting symptoms of COVID 19 back in 04/11/2021. She has been sick since. Review of Systems Constitutional: Reports fatigue, Reports poor appetite, Reports weakness Eyes: denies as per HPI, denies blurred vision, denies bulging eye, denies decreased vision, denies diplopia, denies discharge, denies dry eye, denies irritation, denies itching, denies pain, denies photophobia, denies loss of peripheral vision, denies loss of vision, denies tunnel vision/blind spots Ears: deny: decreased hearing, ear discharge, earache, tinnitus Ears, nose, mouth and throat: Reports as per HPI Breasts: absent: as per HPI, change in shape, gynecomastia, masses, nipple disch arge, pain, skin changes, swelling Breasts: Reports as per HPI Cardiovascular: Reports decreased exercise tolerance, Reports dyspnea on exertion Respiratory: Reports cough, Reports dyspnea Gastrointestinal: Reports as per HPI Genitourinary: Reports as per HPI Menstruation: Reports as per HPI Musculoskeletal: Reports as per HPI Musculoskeletal: absent: ankle pain, ankle stiffness, ankle swelling, as per HPI, elbow pain, elbow stiffness, elbow swelling, foot pain, foot stiffness, foot swelling, hand pain, hand stiffness, hand swelling, hip pain, hip stiffness, hip swelling, knee pain, knee stiffness, knee swelling, shoulder pain, shoulder stiffness, shoulder swelling, wrist pain, wrist stiffness, wrist swelling Integumentary: Reports as per HPI Neurological: Reports as per HPI Past Medical History Past Medical History: GERD/Reflux, Pneumonia (COVID 19 infection on 04/11/2021), Thyroid Disorder Additional Past Medical History / Comment(s): overactive bladder History of Any Multi-Drug Resistant Organisms: None Reported Past Surgical History: Hysterectomy Additional Past Surgical History / Comment(s): partial hysterectomy, 09/11/14 thyroid removal Past Anesthesia/Blood Transfusion Reactions: No Reported Reaction Past Psychological History: Anxiety Smoking Status: Never smoker Past Alcohol Use History: Occasional Past Drug Use History: Marijuana Additional Drug Use History / Comment(s): occassional use of marijuana per pt - Past Family History Mother Family Medical History: Cancer, Hypertension Additional Family Medical History / Comment(s): colon cancer. maternal aunt with breast cancer age 40 Sister(s) Family Medical History: Cancer Additional Family Medical History / Comment(s): breast cancer age 49 Father Family Medical History: Hypertension Additional Family Medical History / Comment(s): paternal gradmother breast cancer age 80 Medications and Allergies Home Medications Medication Instructions Recorded Confirmed Type Levothyroxine Sodium [Synthroid] 112 mcg PO DAILY 04/13/21 04/20/21 History predniSONE 50 mg PO DAILY #5 tab 04/21/21 Rx Allergies Allergy/AdvReac Type Severity Reaction Status Date / Time No Known Allergies Allergy Verified 04/20/21 23:23 Physical Exam Vitals: Vital Signs Temp Pulse Resp BP BP Pulse Ox 04/24/21 10:40 122 H 92 L 04/24/21 09:20 122 H 97 04/24/21 08:19 92 L 04/24/21 08:00 118 H 18 04/24/21 07:50 85 L 04/24/21 07:31 98.7 F 118 H 18 113/73 94 L 04/24/21 04:40 89 L 04/24/21 03:56 98.2 F 112 H 22 97/65 89 L 04/23/21 21:27 100.3 F H 113 H 20 135/78 90 L 04/23/21 16:03 111 H 22 96 04/23/21 15:00 97.8 F 108 H 20 120/75 86 L Intake and Output 04/23/21 04/24/21 04/24/21 22:59 06:59 14:59 Intake Total 500 120 Balance 500 120 Intake: Oral 500 120 Other: Voiding Method Bedside Commode # Voids 1 3 # Bowel Movements 1 Patient is having some mild labored breathing. Currently she is on a 15 L nonrebreather facemask at 100% FiO2. Head exam was generally normal. There was no scleral icterus or corneal arcus. Mucous membranes were moist. Neck was supple and without jugular venous distension, thyromegaly, or carotid bruits. Carotids were easily palpable bilaterally. There was no adenopathy. Lungs sounds are diminished in the patient's crackles in the mid and lower lung field bilaterally Cardiac exam revealed the PMI to be normally situated and sized. The rhythm was regular and no extrasystoles were noted during several minutes of auscultation. The first and second heart sounds were normal and physiologic splitting of the second heart sound was noted. There were no murmurs, rubs, clicks, or gallops. Abdominal exam revealed normal bowel sounds. The abdomen was soft, non-tender, and without masses, organomegaly, or appreciable enlargement of the abdominal aorta. Examination of the extremities revealed easily palpable radial, femoral and pedal pulses. There was no cyanosis, clubbing or edema. Examination of the skin revealed no evidence of significant rashes, suspicious appearing nevi or other concerning lesions. Neurologically, the patient is awake and alert and the patient does not have any focal neurological deficit. Cranial nerves are essentially intact. Results - Laboratory Findings CBC and BMP: 04/22/21 07:02 04/22/21 07:02 PT/INR, D-dimer PT 11.4 sec (9.0-12.0) 04/21/21 02:02 INR 1.1 (<1.2) 04/21/21 02:02 D-Dimer 1.02 mg/L FEU (<0.60) H 04/21/21 02:02 Abnormal lab findings: Abnormal Labs 04/20/21 04/20/21 04/21/21 23:37 23:37 02:02 WBC 22.8 H Hgb 16.3 H Hct 49.6 H Metamyelocytes % Myelocytes % Neutrophils # 21.0 H Neutrophils # (Manual) Lymphocytes # 0.7 L Lymphocytes # (Manual) Monocytes # (Manual) Eosinophils # (Manual) D-Dimer 1.02 H BUN Glucose 109 H Total Bilirubin 1.4 H AST 50 H Total Protein Albumin Albumin/Globulin Ratio Lipase Coronavirus (PCR) 04/21/21 04/22/21 04/22/21 05:20 07:02 07:02 WBC 11.69 H Hgb Hct Metamyelocytes % 1 H Myelocytes % 3 H Neutrophils # Neutrophils # (Manual) 10.52 H Lymphocytes # Lymphocytes # (Manual) 0.58 L Monocytes # (Manual) 0.12 L Eosinophils # (Manual) 0 L D-Dimer BUN 7.5 L Glucose Total Bilirubin AST 39 H Total Protein 6.0 L Albumin 2.9 L Albumin/Globulin Ratio 0.96 L Lipase 10 L Coronavirus (PCR) Detected A - Diagnostic Findings Chest x-ray: image reviewed Assessment and Plan Plan: 1 acute hypoxic respiratory failure secondary to COVID 19 pneumonia. Not been vaccinated for COVID 19. The patient has bilateral pulmonary infiltrates due to progression of her COVID 19 infection. She was originally symptomatic on 04/11/2021. She was diagnosed having COVID 19 infection on 04/13/2021 and the patient had a brief hospitalization and the patient was discharged home on 04/18/2021 after being treated as an inpatient basis. No steroids were given on outpatient basis. The patient was on room air oxygen. Original computed tomography scan of the chest that was done on 04/13/2021 showed no evidence of any suspicious consolidations or infiltrates or pulmonary embolism. In fact, the patient's condition progressed and the patient is coming in with worsening shortness of breath and currently she is on 100% nonrebreather facemask. 2 acute hypoxic respiratory failure secondary to above 3 shortness of breath secondary to above 4 history of hypothyroidism 5 history of marijuana smoking Plan Titrate oxygen flow to maintain a saturation above 90%. Currently she is on 100% nonrebreather facemask. We will monitor pulse ox. She is currently at 86%. She may benefit from a Airvo high flow system in combination with a nonr ebreather facemask. Suggest repeating the CT angiogram Continue vitamin C and vitamin D and zinc supplements Start the patient on Decadron 6 mg IV every 12 hours Check pro calcitonin level Request pharmacy to initiate Baricitinib per protocol Anticoagulation with Lovenox 40 mg subcu every 24 hours unless CTA shows any other abnormalities chest filling defects The patient will be transferred to a medical surgical floor with telemetry monitoring.
[2021-04-24] MEDS ORDERED: ENOXAPARIN 40 MG/0.4 ML SYRINGE SQ SCH (12:00)
[2021-04-24 14:10] LABS: C Reactive Protein 44.1 mg/dL (<1.0)
[2021-04-24] MEDS: ACETAMINOPHEN TAB 325 MG TAB PO PRN (16:35)
[2021-04-24] MEDS: ZINC SULFATE 220 MG CAP PO SCH (16:35)
[2021-04-24] MEDS: DEXAMETHASONE SOD PHOSPHATE 10 MG/ML 1 ML VIAL IVP SCH (16:35)
[2021-04-24] MEDS: CHOLECALCIFEROL 125 MCG (5000 IU) TABLET PO SCH (16:35)
[2021-04-24] MEDS: ASCORBIC ACID 500 MG TAB PO SCH (16:35)
--- NOTE | 2021-04-24 20:12 | CT ---
EXAMINATION TYPE: CT angio chest DATE OF EXAM: 04/24/2021 6:31 PM COMPARISON: CT 04/13/2021. Radiograph 04/22/2021. HISTORY: Covid hypoxemia. CT DLP: 308.4 mGycm Automated exposure control for dose reduction was used. CONTRAST: CTA scan of the thorax is performed with IV Contrast, patient injected with 100 mL of Isovue 370, pul monary embolism protocol. MIP images are created and reviewed. FINDINGS: LUNGS: There are bilateral diffuse marked patchy groundglass opacities, new compared to prior CT. The re is no pleural effusion or pneumothorax seen. The tracheobronchial tree is patent. MEDIASTINUM: There is limited evaluation of the pulmonary artery segmental subsegmental branches. The re is questionable filling defect in a few right lower lobe pulmonary artery segmental branches. The re are no greater than 1 cm hilar or mediastinal lymph nodes. No pericardial effusion is seen. OTHER: Small hiatal hernia. No additional significant abnormality is seen. IMPRESSION: LIMITED EVALUATION OF PULMONARY ARTERIES. QUESTIONABLE RIGHT LOWER LOBE PE INVOLVING FEW SUBSEGMENTAL BRANCHES. DIFFUSE AIRSPACE DISEASE CONSISTENT WITH HISTORY OF COVID PNEUMONIA.
[2021-04-24] MEDS: ENOXAPARIN 100 MG/ML SYRINGE SQ SCH (23:28)
[2021-04-25] MEDS: LEVOTHYROXINE 112 MCG TAB PO SCH (06:05)
[2021-04-25] MEDS: PANTOPRAZOLE 40 MG TABLET PO SCH (06:07)
[2021-04-25] MEDS: SODIUM CHLORIDE 0.9% 1,000 ML IV SCH ×2 (06:07→17:34)
[2021-04-25] MEDS: SYMBICORT 160-4.5 MCG INHALER INHALATION SCH ×2 (08:16→19:39)
[2021-04-25] MEDS: ALBUTEROL HFA INHALER INHALATION SCH ×4 (08:16→19:39)
[2021-04-25] MEDS: ASCORBIC ACID 500 MG TAB PO SCH (08:50)
[2021-04-25] MEDS: ENOXAPARIN 100 MG/ML SYRINGE SQ SCH ×2 (08:50→21:09)
[2021-04-25] MEDS: DEXAMETHASONE SOD PHOSPHATE 10 MG/ML 1 ML VIAL IVP SCH ×2 (08:50→21:09)
[2021-04-25] MEDS: ZINC SULFATE 220 MG CAP PO SCH (08:51)
[2021-04-25] MEDS: CHOLECALCIFEROL 125 MCG (5000 IU) TABLET PO SCH (08:51)
[2021-04-25 12:03] LABS: Basophils # (A) 0.1 k/uL (0-0.2); Basophils % (A) 0 %; Eosinophils # (A) 0.2 k/uL (0-0.7); Eosinophils % (A) 1 %; HCT 43.2 % (34.0-46.0); HGB 13.7 gm/dL (11.4-16.0); Lymphocytes # (A) 0.7 k/uL (1.0-4.8); Lymphocytes % (A) 3 %; MCH 30.5 pg (25.0-35.0); MCHC 31.7 g/dL (31.0-37.0); MCV 96.3 fL (80.0-100.0); Mean Platelet Volume 8.2; Monocytes # (A) 0.3 k/uL (0-1.0); Monocytes % (A) 1 %; Neutrophils % (A) 95 %; Platelet Count 249 k/uL (150-450); RBC 4.48 m/uL (3.80-5.40); RDW 13.3 % (11.5-15.5); WBC 24.4 k/uL (3.8-10.6)
[2021-04-25 12:40] LABS: Potassium 3.1 mmol/L (3.5-5.1)
[2021-04-25 12:43] LABS: ALT 25 U/L (4-34); AST 51 U/L (14-36); African American GFR (CKD) >90 (>60 ml/min/1.73 sqM); Albumin 2.9 g/dL (3.5-5.0); Alkaline Phosphatase 99 U/L (38-126); Anion Gap 9 mmol/L; Blood Urea Nitrogen 5 mg/dL (7-17); Calcium 8.4 mg/dL (8.4-10.2); Carbon Dioxide 31 mmol/L (22-30); Chloride 100 mmol/L (98-107); Glucose 112 mg/dL (74-99); Non-African American GFR(CKD) >90 (>60 ml/min/1.73 sqM); Sodium 140 mmol/L (137-145); Total Bilirubin 0.8 mg/dL (0.2-1.3); Total Protein 6.7 g/dL (6.3-8.2)
[2021-04-25 12:48] LABS: LDH 2814 U/L (313-618)
[2021-04-25 13:37] LABS: C Reactive Protein 50.9 mg/dL (<1.0)
[2021-04-25] MEDS ORDERED: Potassium Replacement Protocol 1 EACH MISC MISCELLANE PRN (13:46)
[2021-04-25] MEDS ORDERED: POTASSIUM CHLORIDE ER 20 MEQ TAB.ER PO ONE (16:00)
--- NOTE | 2021-04-25 17:05 | P.PN ---
Subjective Progress Note Date: 04/25/21 45-year-old -[place] female patient who is currently in the hospital for Covid 19 related pneumonia. The patient is quite ill and the patient has diffuse bilateral pneumonia and this was confirmed by CAT scan of the chest and a CT angiogram also showed right lower lobe pulmonary embolism and for that reason the patient was started on anticoagulation therapeutic doses of Lovenox 100 mg subcu every 12 hours. Meanwhile, the patient remains on Decadron 6 mg and I am going to step of the treatment to use 60 mg IV every 12 hours and start the patient on Baricitinib per protocol. Noted the patient is currently on 15 L of oxygen by nasal cannula addition to 100% nonrebreather facemask. Inflam matory markers remain quite elevated. The patient's LDH level is at 2814 with a CRP level of 50.5. The patient's d-dimer is also elevated and the patient has a d-dimer above 34. The white cell count is 24. The patient's breathing is labored at rest and the patient has mild degree of respiratory distress. No angina. No palpitations. No chest pain. No altered mentation. She is able to maintain diet. She is a bit anxious regarding her ongoing decompensation and respiratory insufficiency. Objective - Vital Signs Vital signs: Vital Signs Temp 97.1 F L 04/25/21 15:56 Pulse 106 H 04/25/21 15:56 Resp 21 04/25/21 15:56 BP 144/79 04/25/21 15:56 Pulse Ox 99 04/25/21 15:56 Intake & Output 04/24/21 04/25/21 04/25/21 18:59 06:59 18:59 Intake Total 360 Balance 360 Intake: Oral 360 Other: Voiding Method Bedside Commode Bedside Commode # Bowel Movements 1 - Exam Patient is having some mild labored breathing. Currently she is on a 15 L nonrebreather facemask at 100% FiO2. Head exam was generally normal. There was no scleral icterus or corneal arcus. Mucous membranes were moist. Neck was supple and without jugular venous distension, thyromegaly, or carotid bruits. Carotids were easily palpable bilaterally. There was no adenopathy. Lungs sounds are diminished in the patient's crackles in the mid and lower lung field bilaterally Cardiac exam revealed the PMI to be normally situated and sized. The rhythm was regular and no extrasystoles were noted during several minutes of auscultation. The first and second heart sounds were normal and physiologic splitting of the second heart sound was noted. There were no murmurs, rubs, clicks, or gallops. Abdominal exam revealed normal bowel sounds. The abdomen was soft, non-tender, and without masses, organomegaly, or appreciable enlargement of the abdominal aorta. Examination of the extremities revealed easily palpable radial, femoral and pedal pulses. There was no cyanosis, clubbing or edema. Examination of the skin revealed no evidence of significant rashes, suspicious appearing nevi or other concerning lesions. Neurologically, the patient is awake and alert and the patient does not have any focal neurological deficit. Cranial nerves are essentially intact. - Labs CBC & Chem 7: 04/25/21 11:42 04/25/21 11:42 Labs: Abnormal Lab Results - Last 24 Hours (Table) 04/25/21 04/25/21 04/25/21 Range/Units 11:42 11:42 11:42 WBC 24.4 H (3.8-10.6) k/uL Neutrophils # 23.0 H (1.3-7.7) k/uL Lymphocytes # 0.7 L (1.0-4.8) k/uL D-Dimer >34.10 H (<0.60) mg/L FEU Potassium 3.1 L (3.5-5.1) mmol/L Carbon Dioxide 31 H (22-30) mmol/L BUN 5 L (7-17) mg/dL Glucose 112 H (74-99) mg/dL AST 51 H (14-36) U/L Lactate Dehydrogenase 2814 H (313-618) U/L C-Reactive Protein 50.9 H (<1.0) mg/dL Albumin 2.9 L (3.5-5.0) g/dL Assessment and Plan Plan: 1 acute hypoxic respiratory failure secondary to COVID 19 pneumonia. Not been vaccinated for COVID 19. The patient has bilateral pulmonary infiltrates due to progression of her COVID 19 infection. She was originally symptomatic on 04/11/2021. She was diagnosed having COVID 19 infection on 04/13/2021 and the patient had a brief hospitalization and the patient was discharged home on 04/18/2021 after being treated as an inpatient basis. No steroids were given on outpatient basis. The patient was on room air oxygen. Original computed tomography scan of the chest that was done on 04/13/2021 showed no evidence of any suspicious consolidations or infiltrates or pulmonary embolism. In fact, the patient's condition progressed and the patient is coming in with worsening shortness of breath and currently she is on 100% nonrebreather facemask. 2 acute hypoxic respiratory failure secondary to above 3 acute right lower lobe pulmonary embolism secondary to Covid 19 infection. D- dimer was elevated and the patient was suspected to have pulmonary embolism and CT angiogram findings. 4 history of hypothyroidism 5 history of marijuana smoking Plan Titrate oxygen flow to maintain a saturation above 90%. Currently she is on 100% nonrebreather facemask. CT angiogram was noted and the patient was found to have diffuse pneumonia and subsegmental branches pulmonary artery and the right lower lobe and the patient was started on therapeutic dose of Lovenox Continue vitamin C and vitamin D and zinc supplements Continue Decadron 6 mg IV every 12 hours Check pro calcitonin level is still pending Add Baricitinib per protocol Continue multivitamins Obviously this patient is monitored very closely. There is a high risk for progression and further decompensation her status and development of further respiratory insufficiency requiring intubation mechanical ventilation. For now the patient on a nonrebreather facemask addition to 15 L nasal cannula. I may transition her to Airvo system if she develops any significant desaturations.
[2021-04-25] MEDS ORDERED: BARICITINIB 2 MG TABLET PO SCH (18:00)
[2021-04-25] MEDS: SODIUM CHLORIDE 0.65% NASAL SPRAY 44 ML BTL NASAL SCH ×3 (18:03→21:10)
[2021-04-26] MEDS: SODIUM CHLORIDE 0.9% 1,000 ML IV SCH ×4 (00:08→21:03)
[2021-04-26] MEDS: MORPHINE SULFATE 4 MG/ML SYRINGE IV PRN ×2 (05:53→10:00)
[2021-04-26] MEDS: LEVOTHYROXINE 112 MCG TAB PO SCH (05:53)
[2021-04-26] MEDS: PANTOPRAZOLE 40 MG TABLET PO SCH (06:33)
[2021-04-26] MEDS: ALBUTEROL HFA INHALER INHALATION SCH ×4 (08:53→21:18)
[2021-04-26] MEDS: SYMBICORT 160-4.5 MCG INHALER INHALATION SCH ×2 (08:53→21:18)
[2021-04-26] MEDS: DEXAMETHASONE SOD PHOSPHATE 10 MG/ML 1 ML VIAL IVP SCH ×2 (10:00→20:51)
[2021-04-26] MEDS: CHOLECALCIFEROL 125 MCG (5000 IU) TABLET PO SCH (10:04)
[2021-04-26] MEDS: ZINC SULFATE 220 MG CAP PO SCH (10:04)
[2021-04-26] MEDS: ENOXAPARIN 100 MG/ML SYRINGE SQ SCH ×2 (10:04→21:17)
[2021-04-26] MEDS: ASCORBIC ACID 500 MG TAB PO SCH (10:04)
[2021-04-26] MEDS: SODIUM CHLORIDE 0.65% NASAL SPRAY 44 ML BTL NASAL SCH ×3 (10:08→21:04)
[2021-04-26 10:31] LABS: Magnesium 2.3 mg/dL (1.6-2.3); Phosphorus 3.2 mg/dL (2.5-4.5)
[2021-04-26] MEDS ORDERED: ALPRAZolam 0.25 MG TAB PO PRN (10:48)
[2021-04-26] MEDS: LORazepam 2 MG/ML INJ IV PRN ×2 (11:14→18:29)
[2021-04-26 12:51] LABS: Glucose,Whole Blood 99 mg/dL (75-99)
[2021-04-26] MEDS: DEXMEDETOMIDINE/0.9% NACL(PMX) 400 MCG in EMPTY BAG 1 BAG IV SCH ×3 (12:55→22:09)
[2021-04-26 13:13] LABS: ABG Base Excess 7.4 mmol/L; ABG HCO3 32 mmol/L (21-25); ABG Oxygen Saturation 94.1 % (94-97); ABG PCO2 49 mmHg (35-45); ABG PH 7.42 (7.35-7.45); ABG PO2 71 mmHg (83-108); ABG TCO2 33 mmol/L (19-24); Allen Test Performed? Yes
--- NOTE | 2021-04-26 14:32 | P.PN ---
Subjective Progress Note Date: 04/26/21 45-year-old -[place] female patient who is currently in the hospital for Covid 19 related pneumonia. The patient is quite ill and the patient has diffuse bilateral pneumonia and this was confirmed by CAT scan of the chest and a CT angiogram also showed right lower lobe pulmonary embolism and for that reason the patient was started on anticoagulation therapeutic doses of Lovenox 100 mg subcu every 12 hours. Meanwhile, the patient remains on Decadron 6 mg and I am going to step of the treatment to use 60 mg IV every 12 hours and start the patient on Baricitinib per protocol. Noted the patient is currently on 15 L of oxygen by nasal cannula addition to 100% nonrebreather facemask. Inflam matory markers remain quite elevated. The patient's LDH level is at 2814 with a CRP level of 50.5. The patient's d-dimer is also elevated and the patient has a d-dimer above 34. The white cell count is 24. The patient's breathing is labored at rest and the patient has mild degree of respiratory distress. No angina. No palpitations. No chest pain. No altered mentation. She is able to maintain diet. She is a bit anxious regarding her ongoing decompensation and respiratory insufficiency. on 04/26/2021, the patient was seen in follow-up. Her condition is on Mr. decompensated and the patient is feeling more short of breath and clinically the patient has become much more anxious. She did have few panic attacks during which the patient became hypoxic and she desaturated. Based on all this, the patient was placed on 15 L nasal cannula along with 100% nonrebreather facemask and I made recommendations chest with the patient to the ICU. Note that the patient had diffuse bilateral pulmonary infiltrates consistent with Covid integrated pneumonia. The patient was receiving a combination of Decadron 6 mg IV 12 hours and Baricitinib per protocol. The patient was also in atrial fib rillation and the patient is currently on a therapeutic dose of Lovenox 100 mg subcu every 12 hours. Computed tomography scan of the chest was completed and the patient was found to have some suspicious filling defects consistent with pulmonary embolism in the right lower lobe. Antipronation dose adjustment was done yesterday. On today's evaluation as stated, the patient is anxious and the patient was given a dose of Ativan on the medical floor. I made recommendations transfer the patient to the ICU and use BiPAP if needed.upon arrival to the ICU, the patient the blood. That showed a pH of 7.42 with a pCO2 of 49 and pO2 of 71. The blood work from today is still pending. D-dimer was above 34.her inflammatory markers were quite elevated. LDH level was 2814 with a CRP of 50.9. Repeated blood work will be obtained from today.a midline will be inserted for IV access. Objective - Vital Signs Vital signs: Vital Signs Temp 99.1 F 04/26/21 13:00 Pulse 81 04/26/21 14:00 Resp 36 H 04/26/21 14:00 BP 130/87 04/26/21 14:00 Pulse Ox 91 L 04/26/21 14:00 Intake & Output 04/25/21 04/26/21 04/26/21 18:59 06:59 18:59 Intake Total 240 970 312.521 Output Total 200 Balance 40 970 312.521 Weight 104.326 kg Intake: IV 70 Sodium Chloride 0.9% 1, 70 000 ml @ 130 mls/hr IV . [id number] MAUREEN Rx#:[id number] Intake, IV Titration 2.521 Amount Dexmedetomidine/0.9% NaCl 2.521 (Pmx) 400 mcg In Empty Bag 1 bag @ 0.2 MCG/KG/HR 5.216 mls/hr IV .[id number] MAUREEN Rx#:[id number] Oral 240 970 240 Output: Urine 200 Other: Voiding Method Bedside Commode # Voids 5 # Bowel Movements 1 - Exam Patient is having some mild labored breathing. Currently she is on a 15 L nonrebreather facemask at 100% FiO2., clinically the patient's breathing is labored and the patient is more anxious compared to yesterday. She is slightly tachypneic. Head exam was generally normal. There was no scleral icterus or corneal arcus. Mucous membranes were moist. Neck was supple and without jugular venous distension, thyromegaly, or carotid bruits. Carotids were easily palpable bilaterally. There was no adenopathy. Lungs sounds are diminished in the patient's crackles in the mid and lower lung field bilaterally Cardiac exam revealed the PMI to be normally situated and sized. The rhythm was regular and no extrasystoles were noted during several minutes of auscultation. The first and second heart sounds were normal and physiologic splitting of the second heart sound was noted. There were no murmurs, rubs, clicks, or gallops. Abdominal exam revealed normal bowel sounds. The abdomen was soft, non-tender, and without masses, organomegaly, or appreciable enlargement of the abdominal aorta. Examination of the extremities revealed easily palpable radial, femoral and pedal pulses. There was no cyanosis, clubbing or edema. Examination of the skin revealed no evidence of significant rashes, suspicious appearing nevi or other concerning lesions. Neurologically, the patient is awake and alert and the patient does not have any focal neurological deficit. Cranial nerves are essentially intact. - Labs CBC & Chem 7: 04/25/21 11:42 04/25/21 11:42 Labs: Abnormal Lab Results - Last 24 Hours (Table) 04/25/21 04/26/21 Range/Units 07:42 13:10 ABG pCO2 49 H (35-45) mmHg ABG pO2 71 L (83-108) mmHg ABG HCO3 32 H (21-25) mmol/L ABG Total CO2 33 H (19-24) mmol/L Procalcitonin 4.63 H (0.02-0.09) ng/mL Assessment and Plan Plan: 1 acute hypoxic respiratory failure secondary to COVID 19 pneumonia. Not been vaccinated for COVID 19. The patient has bilateral pulmonary infiltrates due to progression of her COVID 19 infection. She was originally symptomatic on 04/11/2021. She was diagnosed having COVID 19 infection on 04/13/2021 and the patient had a brief hospitalization and the patient was discharged home on after being treated as an inpatient basis. No steroids were given on outpatient basis. The patient was on room air oxygen. Original computed tomography scan of the chest that was done on 04/13/2021 showed no evidence of any suspicious consolidations or infiltrates or pulmonary embolism. the patient's condition significantly progressed over the past 24-48 hours. Currently she is on 15 L of oxygen by nasal cannula in addition to 100% nonrebreather facemask. A repeat CT angiogram showed development of pulmonary embolism in the right lower lobe. The patient's d-dimer was quite elevated and so was her inflammatory markers. The patient is currently on a higher dose of Decadron 6 mg IV every 12 hours. The patient is also on Baricitinib per protocol. The patient is also on therapeutic dose of Lovenox. The patient may need to be transferred to the ICU. She is quite anxious. She may benefit from a Precedex drip and is largely depends on her progression. There is also a lik bairon that the patient may need or be transitioned to BiPAP. the blood gases was noted.subsequently, I identified and the patient's pro calcitonin level was quite elevated at 4.63. I'm going to discontinue the Baricitinib. 2 acute hypoxic respiratory failure secondary to above 3 acute right lower lobe pulmonary embolism secondary to Covid 19 infection. the patient is currently on therapeutic dose of Lovenox. 4 history of hypothyroidism 5 history of marijuana smoking Plan transfer this patient to the intensive care unit Titrate oxygen flow to maintain a saturation above 90%. Currently she is on 100% nonrebreather facemask. patient is also on a high flow oxygen at 15 L. May transition her to airflow. May also need BiPAP. She'll be moved to the intensive care unit for closer monitoring and further adjustments on oxygen source will be done accordingly. CT angiogram was noted and the patient was found to have diffuse pneumonia and subsegmental branches pulmonary artery and the right lower lobe and the patient was started on therapeutic dose of Lovenox Continue vitamin C and vitamin D and zinc supplements Continue Decadron 6 mg IV every 12 hours discontinue Baricitinib Start the patient IV cefepime 2 g every 12 hours Start the patient on Levaquin 500 milligrams every 24 hours Obtain follow-up pro-calcitonin level Obtain follow-up chest x-ray Continue multivitamins we'll continue to follow.
[2021-04-26] MEDS: CEFEPIME 2 GM in SODIUM CHLORIDE 0.9% 100 ML IVPB SCH ×2 (14:58→21:02)
--- NOTE | 2021-04-26 15:20 | XR ---
EXAMINATION TYPE: XR chest 1V DATE OF EXAM: 04/26/2021 COMPARISON: 04/22/2021 HISTORY: Shortness of breath TECHNIQUE: Single frontal view of the chest is obtained. FINDINGS: Diffuse bilateral infiltrates are noted which are markedly progressed from the prior chest x-ray and similar to the recent CT of the chest. No pneumothorax. Tiny pleural effusion is not exclu ded. The heart is prominent. Hypertrophic change of the spine. Calcific tendinosis left shoulder. IMPRESSION: Diffuse bilateral airspace disease correlate for diffuse pneumonia versus ARDS.
[2021-04-26] MEDS: LEVOFLOXACIN 500MG-D5W PMX 500 MG in DEXTROSE/WATER 1 100ML.BAG IVPB SCH (16:15)
[2021-04-26] MEDS ORDERED: propofoL 100 ML IV ONE (18:07)
--- NOTE | 2021-04-26 18:33 | P.PCN ---
Date of Procedure: 04/26/21 Preoperative Diagnosis: COVID 19 pneumonia Postoperative Diagnosis: COVID 19 pneumonia Procedure(s) Performed: Arterial line Central line Anesthesia: local Surgeon: Paloma Swain Pathology: other Condition: critical Disposition: ICU Operative Findings: Arterial Line Indication: Hemodynamic monitoring. A time-out was completed verifying correct patient, procedure, site, positioning, and implant(s) or special equipment if applicable. Allens test was performed to ensure adequate perfusion. The patients left wrist was prepped and draped in sterile fashion. 1% Lidocaine was used to anesthetize the area. An 18G Arrow arterial line was introduced into the left radial artery. The catheter was threaded over the guide wire and the needle was removed with appropriate pulsatile blood return. Blood loss was minimal. The catheter was then sutured in place to the skin and a sterile dressing applied. Perfusion to the extremity distal to the point of catheter insertion was checked and found to be adequate. The patient tolerated the procedure well and there were no complications. Central line Indication: Hemodynamic monitoring/Intravenous access. A time-out was completed verifying correct patient, procedure, site, positio mandi, and implant(s) or special equipment if applicable. The patient was placed in a dependent position appropriate for central line placement based on the vein to be cannulated. The patients left chest was prepped and draped in sterile fashion. 1% Lidocaine was used to anesthetize the surrounding skin area. A triple lumen 9F Cordis catheter was introduced into the left subclavian using Seldinger technique. The catheter was threaded smoothly over the guide wire and appropriate blood return was obtained. Each lumen of the catheter was evacuated of air and flushed with sterile saline. The catheter was then sutured in place to the skin and a sterile dressing applied. Perfusion to the extremity distal to the point of catheter insertion was checked and found to be adequate. The patient tolerated the procedure well and there were no complications.
--- NOTE | 2021-04-26 19:30 | XR ---
EXAMINATION TYPE: XR chest 1V confirm line plcga DATE OF EXAM: 04/26/2021 6:42 PM COMPARISON: 04/26/2021 CLINICAL INDICATION:Female, 45 years old with history of central line placement; TECHNIQUE: Frontal view of the chest. FINDINGS: Lungs/Pleura: Multifocal airspace opacities. No evidence of pneumothorax or pleural effusion. Pulmonary vascularity: Unremarkable. Heart/mediastinum: Cardiomediastinal silhouette is partially obscured due to overlying and adjacent o pacities. Musculoskeletal: No acute osseous pathology. Lines/Tubes: Left central venous catheter with distal tip at the cavoatrial junction. IMPRESSION: Left central venous catheter with distal tip at superior cavoatrial junction is in appropriate positi on. Similar multifocal airspace opacities.
--- NOTE | 2021-04-26 20:47 | PN ---
PROGRESS NOTE DATE OF SERVICE: 04/26/2021 CHIEF COMPLAINT: Shortness of breath. HISTORY OF PRESENT ILLNESS: This lady is more short of breath and she is becoming agitated. She is being seen by Pulmonology. PHYSICAL EXAMINATION: Breath sounds are diminished and she does have scattered rales. The cardiac exam demonstrates tachycardia. Abdomen is soft, nontender. IMPRESSION: 1. COVID pneumonia. 2. Shortness of breath. 3. Increased agitation. PLAN: She is being further evaluated by Pulmonology and it is planned that she will be moved to ICU. MMODL / IJN: [id number] /
[2021-04-27] MEDS: SODIUM CHLORIDE 0.65% NASAL SPRAY 44 ML BTL NASAL SCH ×4 (00:30→20:44)
[2021-04-27] MEDS: DEXMEDETOMIDINE/0.9% NACL(PMX) 400 MCG in EMPTY BAG 1 BAG IV SCH (02:21)
[2021-04-27 04:24] LABS: Basophils # (A) 0.1 k/uL (0-0.2); Basophils % (A) 0 %; Eosinophils % (A) 0 %; HGB 13.1 gm/dL (11.4-16.0); Lymphocytes # (A) 0.7 k/uL (1.0-4.8); Lymphocytes % (A) 4 %; MCH 31.5 pg (25.0-35.0); MCHC 32.8 g/dL (31.0-37.0); MCV 96.2 fL (80.0-100.0); Mean Platelet Volume 8.1; Monocytes # (A) 0.3 k/uL (0-1.0); Monocytes % (A) 2 %; Neutrophils # (A) 19.1 k/uL (1.3-7.7); Neutrophils % (A) 94 %; Platelet Count 283 k/uL (150-450); RBC 4.16 m/uL (3.80-5.40); RDW 13.5 % (11.5-15.5); WBC 20.4 k/uL (3.8-10.6)
[2021-04-27 04:35] LABS: AST 46 U/L (14-36); Blood Urea Nitrogen 12 mg/dL (7-17)
[2021-04-27 04:37] LABS: ALT 23 U/L (4-34); African American GFR (CKD) >90 (>60 ml/min/1.73 sqM); Albumin 2.7 g/dL (3.5-5.0); Alkaline Phosphatase 133 U/L (38-126); Anion Gap 2 mmol/L; Calcium 8.7 mg/dL (8.4-10.2); Carbon Dioxide 33 mmol/L (22-30); Chloride 106 mmol/L (98-107); Glucose 127 mg/dL (74-99); Non-African American GFR(CKD) >90 (>60 ml/min/1.73 sqM); Potassium 4.3 mmol/L (3.5-5.1); Sodium 141 mmol/L (137-145); Total Bilirubin 0.6 mg/dL (0.2-1.3); Total Protein 6.2 g/dL (6.3-8.2)
[2021-04-27 04:37] LABS: ABG Base Excess 6.7 mmol/L; ABG HCO3 31 mmol/L (21-25); ABG PCO2 47 mmHg (35-45); ABG PH 7.43 (7.35-7.45); ABG TCO2 33 mmol/L (19-24); Allen Test Performed? Yes
[2021-04-27] MEDS ORDERED: propofoL 100 ML IV ONE (04:51)
[2021-04-27] MEDS ORDERED: CISATRACURIUM 2 MG/ML 5 ML VIAL IV ONE (04:56)
[2021-04-27 05:01] LABS: LDH 2908 U/L (313-618)
[2021-04-27] MEDS: CISATRACURIUM 200 MG in SODIUM CHLORIDE 0.9% 180 ML IV SCH ×2 (05:22→18:43)
--- NOTE | 2021-04-27 05:40 | XR ---
EXAMINATION TYPE: XR chest 1V portable DATE OF EXAM: 04/27/2021 COMPARISON: Yesterday HISTORY: Respiratory failure TECHNIQUE: FINDINGS: Endotracheal tube is 4 cm from the malini. Nasogastric tube is in the stomach. There is pul monary interstitial and airspace edema. There is left subclavian catheter with tip in the superior ve na cava. There is no pneumothorax. IMPRESSION: There is pulmonary edema without change. Tubing in good position.
[2021-04-27 05:46] LABS: ABG PO2 54 mmHg (83-108)
[2021-04-27 06:04] LABS: ABG Base Excess 5.9 mmol/L; ABG HCO3 30 mmol/L (21-25); ABG Oxygen Saturation 99.1 % (94-97); ABG PCO2 46 mmHg (35-45); ABG PH 7.42 (7.35-7.45); ABG PO2 132 mmHg (83-108); ABG TCO2 32 mmol/L (19-24); Allen Test Performed? Yes
[2021-04-27] MEDS: LEVOTHYROXINE 112 MCG TAB PO SCH ×2 (06:43→09:30)
[2021-04-27] MEDS: ALBUTEROL HFA INHALER INHALATION SCH ×4 (07:59→20:23)
[2021-04-27] MEDS: PANTOPRAZOLE 40 MG TABLET PO SCH ×2 (07:59→09:30)
[2021-04-27] MEDS: SYMBICORT 160-4.5 MCG INHALER INHALATION SCH ×2 (08:00→20:24)
--- NOTE | 2021-04-27 09:20 | P.PN ---
Subjective Progress Note Date: 04/27/21 45-year-old -Citizen Of [place] female patient who is currently in the hospital for Covid 19 related pneumonia. The patient is quite ill and the patient has diffuse bilateral pneumonia and this was confirmed by CAT scan of the chest and a CT angiogram also showed right lower lobe pulmonary embolism and for that reason the patient was started on anticoagulation therapeutic doses of Lovenox 100 mg subcu every 12 hours. Meanwhile, the patient remains on Decadron 6 mg and I am going to step of the treatment to use 60 mg IV every 12 hours and start the patient on Baricitinib per protocol. Noted the patient is currently on 15 L of oxygen by nasal cannula addition to 100% nonrebreather facemask. Inflam matory markers remain quite elevated. The patient's LDH level is at 2814 with a CRP level of 50.5. The patient's d-dimer is also elevated and the patient has a d-dimer above 34. The white cell count is 24. The patient's breathing is labored at rest and the patient has mild degree of respiratory distress. No angina. No palpitations. No chest pain. No altered mentation. She is able to maintain diet. She is a bit anxious regarding her ongoing decompensation and respiratory insufficiency. on 04/26/2021, the patient was seen in follow-up. Her condition is decompensated and the patient is feeling more short of breath and clinically the patient has become much more anxious. She did have few panic attacks during which the patient became hypoxic and she desaturated. Based on all this, the patient was placed on 15 L nasal cannula along with 100% nonrebreather facemask and I made recommendations chest with the patient to the ICU. Note that the patient had diffuse bilateral pulmonary infiltrates consistent with Covid integrated pneumonia. The patient was receiving a combination of Decadron 6 mg IV 12 hours and Baricitinib per protocol. The patient was also in atrial fibrillation and the patient is currently on a therapeutic dose of Lovenox 100 mg subcu every 12 hours. Computed tomography scan of the chest was completed and the patient was found to have some suspicious filling defects consistent with pulmonary embolism in the right lower lobe. Antipronation dose adjustment was done yesterday. On today's evaluation as stated, the patient is anxious and the patient was given a dose of Ativan on the medical floor. I made recommendations transfer the patient to the ICU and use BiPAP if needed.upon arrival to the ICU, the patient the blood. That showed a pH of 7.42 with a pCO2 of 49 and pO2 of 71. The blood work from today is still pending. D-dimer was above 34.her inflammatory markers were quite elevated. LDH level was 2814 with a CRP of 50.9. Repeated blood work will be obtained from today.a midline will be inserted for IV access. On 2021, the patient is intubated on a mechanical ventilator. In the quality engineer hours around 4 AM, the patient became quite short of breath, hypoxic, her pulse ox was dropping in the low 60s and the patient was sent to be intubated and placed on a mechanical ventilator. I was told by the nursing staff that the patient wanted everything to be done to save her life and she was in the point where she was unable to breathe, extremity tachypneic with a respiratory rate in the mid 40s in the low 50s. Blood gases was done at that time while her being on a BiPAP at a pressure of 14/8 cm of water with an FiO2 o f 100%. The blood gases at that time showed a pH of 7.43 with a pCO2 of 47 and pO2 of 54. At that point, it was decided to proceed with intubation and mechanical ventilation. I was anticipating that the patient was going into further respiratory insufficiency. Based on that, and had already inserted a triple lumen catheter and arterial line catheter yesterday. Intubation process was quite easy and this was done by MOUTHPIECE MAKER at the bedside. For now, the patient is sedated and paralyzed. She is currently on a propofol infusion running at 40 mcg/kg per minute and she is also on Nimbex running at 2.5 mcg/kg per minute. The patient is an assist-control mode of mechanical ventilation. At this point in time, she is quite synchronous with the mechanical ventilator and she is on assist control of 34, FiO2 of 100% with a PEEP of 18 and a tidal volume of 400. Peak airway pressure is 63. Blood pressure is 59. The blood gases was done on this current setting showed a pH of 7.42 with a pCO2 of 46 and pO2 of 132. Based on this elevated troponin and static pressures, doctor tidal volume down to 300. Her current peak airway pressure is in the mid 40s anesthetic airway pressure is 43. Follow-up blood gases are in progress. Meanwhile, the chest x- ray post intubation showed adequate expansion of both lungs. ET tube was in good location. The patient had diffuse bilateral pulmonary infiltrates consistent with Covid 19 related pneumonia/ARDS. The patient's blood work from today shows an LDH level of 2908, her CRP level is at 20.0. Her d-dimer is 16.5. Her white cell count of 20.4 and hemoglobin is at 13.1. She is hemodynamically stable. She is on IV fluids currently running at 0.9 at the rate of 70 mL an hour. The patient remains on Decadron 6 mg IV every 12 hours. She is on Lovenox 100 mg subcu every 12 hours as the patient's CT angiogram showed evidence of questionable right lower lobe subsegmental pulmonary embolism. Patient is also on empiric antibiotic coverage with IV cefepime. The pro-calcitonin level was quite elevated at 4.6. cultures were sent. I have also on Levaquin in combination with cefepime as broad-spectrum antibiotic coverage. She'll be started on enteral feeding for nutritional support. Family will be updated on the condition. Condition is very critical. Objective - Vital Signs Vital signs: Vital Signs Temp 98.3 F 04/27/21 04:00 Pulse 56 L 04/27/21 07:30 Resp 34 H 04/27/21 07:30 BP 140/93 04/27/21 07:30 Pulse Ox 97 04/27/21 07:30 Intake & Output 04/26/21 04/27/21 04/27/21 18:59 06:59 18:59 Intake Total 649.678 7775.339 94.881 Output Total 0 200 0 Balance 843.119 924.339 94.881 Weight 104.326 kg 104.6 kg Intake: IV 350 840 70 Sodium Chloride 0.9% 1, 350 840 70 000 ml @ 70 mls/hr IV . [id number] [facility] Rx#:[id number] Intake, IV Titration 253.119 279.339 24.881 Amount Cefepime 2 gm In Sodium 100 Chloride 0.9% 100 ml @ 25 mls/hr IVPB Q12HR [facility] Rx #:[id number] Cisatracurium 200 mg In 3.026 24.881 Sodium Chloride 0.9% 180 ml @ 1 MCG/KG/MIN 6.26 mls/hr IV .Q24H [facility] Rx#: [id number] Dexmedetomidine/0.9% NaCl 53.119 274.744 (Pmx) 400 mcg In Empty Bag 1 bag @ 0.2 MCG/KG/HR 5.216 mls/hr IV .[id number] [facility] Rx#:[id number] Levofloxacin 500Mg-D5w 100 Pmx 500 mg In Dextrose/ Water 1 100ml.bag @ 100 mls/hr IVPB Q24H [facility] Rx#: [id number] propofoL 1,000 mg In 1.569 Empty Bag 1 bag @ Titrate IV .Q0M [facility] Rx#: [id number] Oral 240 5 Output: Urine 0 200 0 Other: Voiding Method External Catheter ABP, PAP, CO, CI - Last Documented Arterial Blood Pressure 158/90 - Exam Patient is intubated on a mechanical ventilator. She is sedated and paralyzed. Orogastric and orotracheal tube are both in place. Head exam was generally normal. There was no scleral icterus or corneal arcus. Mucous membranes were moist. Neck was supple and without jugular venous distension, thyromegaly, or carotid bruits. Carotids were easily palpable bilaterally. There was no adenopathy. The patient has a left subclavian triple-lumen catheter in place. Lungs sounds are diminished in the patient's crackles in the mid and lower lung field bilaterally Cardiac exam revealed the PMI to be normally situated and sized. The rhythm was regular and no extrasystoles were noted during several minutes of auscultation. The first and second heart sounds were normal and physiologic splitting of the second heart sound was noted. There were no murmurs, rubs, clicks, or gallops. Abdominal exam revealed normal bowel sounds. The abdomen was soft, non-tender, and without masses, organomegaly, or appreciable enlargement of the abdominal aorta. Examination of the extremities revealed easily palpable radial, femoral and pedal pulses. There was no cyanosis, clubbing or edema. Examination of the skin revealed no evidence of significant rashes, suspicious appearing nevi or other concerning lesions. Neurologically, the patient is sedated and paralyzed. Pupils are equal and reactive to light. - Labs CBC & Chem 7: 04/27/21 04:05 04/27/21 04:05 Labs: Abnormal Lab Results - Last 24 Hours (Table) 04/26/21 04/27/21 04/27/21 Range/Units 13:10 04:05 04:05 WBC 20.4 H (3.8-10.6) k/uL Neutrophils # 19.1 H (1.3-7.7) k/uL Lymphocytes # 0.7 L (1.0-4.8) k/uL D-Dimer 16.55 H (<0.60) mg/L FEU ABG pCO2 49 H (35-45) mmHg ABG pO2 71 L (83-108) mmHg ABG HCO3 32 H (21-25) mmol/L ABG Total CO2 33 H (19-24) mmol/L ABG O2 Saturation (94-97) % Carbon Dioxide (22-30) mmol/L Glucose (74-99) mg/dL AST (14-36) U/L Alkaline Phosphatase (38-126) U/L Lactate Dehydrogenase (313-618) U/L C-Reactive Protein (<1.0) mg/dL Total Protein (6.3-8.2) g/dL Albumin (3.5-5.0) g/dL 04/27/21 04/27/21 04/27/21 Range/Units 04:05 04:31 05:59 WBC (3.8-10.6) k/uL Neutrophils # (1.3-7.7) k/uL Lymphocytes # (1.0-4.8) k/uL D-Dimer (<0.60) mg/L FEU ABG pCO2 47 H 46 H (35-45) mmHg ABG pO2 54 L* 132 H (83-108) mmHg ABG HCO3 31 H 30 H (21-25) mmol/L ABG Total CO2 33 H 32 H (19-24) mmol/L ABG O2 Saturation 87.0 L 99.1 H (94-97) % Carbon Dioxide 33 H (22-30) mmol/L Glucose 127 H (74-99) mg/dL AST 46 H (14-36) U/L Alkaline Phosphatase 133 H (38-126) U/L Lactate Dehydrogenase 2908 H (313-618) U/L C-Reactive Protein 20.0 H (<1.0) mg/dL Total Protein 6.2 L (6.3-8.2) g/dL Albumin 2.7 L (3.5-5.0) g/dL Assessment and Plan Plan: 1 acute hypoxic respiratory failure secondary to COVID 19 pneumonia. Not been vaccinated for COVID 19. The patient has bilateral pulmonary infiltrates due to progression of her COVID 19 infection. She was originally symptomatic on 04/11/2021. She was diagnosed having COVID 19 infection on 04/13/2021 and the patient had a brief hospitalization and the patient was discharged home on 04/18/2021 after being treated as an inpatient basis. No steroids were given on outpatient basis. The patient was on room air oxygen. Original computed tomography scan of the chest that was done on 04/13/2021 showed no evidence of any suspicious consolidations or infiltrates or pulmonary embolism. the patient's condition significantly progressed over the past 24-48 hours. Currently she is on 15 L of oxygen by nasal cannula in addition to 100% nonrebreather facemask. A repeat CT angiogram showed development of pulmonary embolism in the right lower lobe. The patient's d-dimer was quite elevated and so was her inflammatory markers. The patient is currently on a higher dose of Decadron 6 mg IV every 12 hours. The patient is also on Baricitinib per pro tocol. The patient is also on therapeutic dose of Lovenox. The patient may need to be transferred to the ICU. Overnight, the patient remains quite short of breath and tachypneic. An quality engineer hours, the patient decompensated and she got to point where she was unable to breathe and she needed more help. Based on that, the patient was intubated and placed on a mechanical ventilator. Post intubation chest x-ray showing diffuse bilateral pulmonary infiltrates consistent with Covid 19 related pneumonia/ARDS. Her lungs are extremely noncompliant at this point in time. Peak and static pressure quite elevated. We are utilizing a low tidal volume strategy on this patient. We may ask ant icipate some permissive hypercapnia. Follow-up blood gases are pending. The pro-calcitonin level was elevated. I stopped the Baricitinib I kept the patient on Decadron 6 mg IV every 12 hours. Also, I put the patient had a dose of Lovenox regarding the possibility of pulmonary embolism and the patient had some small subsegmental filling defects on the CT angiogram. D-dimer was significantly elevated. Inflammatory markers continued to be elevated. Currently sedated and paralyzed, intubated on a mechanical ventilator. She is also on broad-spectrum antibiotics utilizing a combination of Levaquin and cefepime. 2 acute hypoxic respiratory failure secondary to above 3 acute right lower lobe pulmonary embolism secondary to Covid 19 infection. the patient is currently on therapeutic dose of Lovenox. 4 history of hypothyroidism 5 history of marijuana smoking Plan transfer this patient to the intensive care unit Keep the patient sedated and paralyzed for now Continue ventilator support with low tidal volume ventilation, anticipate permissive hypercapnia. Follow-up blood gases will be done in our and will initiate bicarb infusion if there is significant acidosis. Continue Decadron Pro-calcitonin level was elevated and Baricitinib was discontinued and patient was covered with a broad-spectrum antibiotics pending further cultures. Currently she is on a combination of cefepime and Levaquin. Obtain a repeat pro-calcitonin level. Keep the patient IV fluids Continue Lovenox therapeutic doses Continue vitamin C and vitamin D and zinc supplements Continue Decadron 6 mg IV every 12 hours Obtain follow-up pro-calcitonin level Obtain follow-up chest x-ray we'll continue to follow. Condition is extremely critical. There are several members of her family inquiring about her condition. I asked them all to come in to the hospital for a discussion and conversation and an update on her condition. Her condition is critical. Prognosis poor baseline above-mentioned and will continue to follow. This is a critically care evaluation that was done and more than 30 minutes. Time with Patient: Greater than 30
[2021-04-27] MEDS: CEFEPIME 2 GM in SODIUM CHLORIDE 0.9% 100 ML IVPB SCH ×2 (09:26→16:21)
[2021-04-27] MEDS: CHLORHEXIDINE GLUCONATE 15 ML CUP MUCOUS MEM SCH ×2 (09:29→20:44)
[2021-04-27] MEDS: CHOLECALCIFEROL 125 MCG (5000 IU) TABLET PO SCH (09:29)
[2021-04-27] MEDS: ENOXAPARIN 100 MG/ML SYRINGE SQ SCH ×2 (09:30→20:46)
[2021-04-27] MEDS: ASCORBIC ACID 500 MG TAB PO SCH (09:30)
[2021-04-27] MEDS: ZINC SULFATE 220 MG CAP PO SCH (09:30)
[2021-04-27] MEDS: DEXAMETHASONE SOD PHOSPHATE 10 MG/ML 1 ML VIAL IVP SCH ×2 (09:31→20:44)
[2021-04-27 09:49] LABS: ABG Base Excess 5.5 mmol/L; ABG HCO3 32 mmol/L (21-25); ABG Oxygen Saturation 99.2 % (94-97); ABG PCO2 63 mmHg (35-45); ABG PH 7.31 (7.35-7.45); ABG PO2 176 mmHg (83-108); ABG TCO2 34 mmol/L (19-24)
[2021-04-27 09:52] LABS: Glucose,Whole Blood 104 mg/dL (75-99)
[2021-04-27 11:40] LABS: Glucose,Whole Blood 99 mg/dL (75-99)
[2021-04-27 15:44] LABS: ABG Base Excess 3.1 mmol/L; ABG HCO3 32 mmol/L (21-25); ABG Oxygen Saturation 93.5 % (94-97); ABG PO2 90 mmHg (83-108); ABG TCO2 35 mmol/L (19-24)
[2021-04-27 15:48] LABS: ABG PCO2 92 mmHg (35-45); ABG PH 7.15 (7.35-7.45)
[2021-04-27] MEDS ORDERED: SODIUM BICARB 8.4% 50 ML SYR (1 MEQ/ML) IV STA (15:51)
[2021-04-27] MEDS: NOREPINEPHRINE 8 MG in SODIUM CHLORIDE 0.9% 250 ML IV SCH (16:04)
[2021-04-27] MEDS: DEXTROSE 5% IN WATER 1,000 ML with SODIUM BICARB (1 MEQ/ML) 150 ML IV SCH (16:09)
[2021-04-27] MEDS: SODIUM CHLORIDE 0.9% 1,000 ML IV SCH ×2 (16:20→20:43)
[2021-04-27] MEDS: ARTIFICIAL TEARS-HYPROMELLOSE DROPS 15 ML BTL BOTH EYES SCH ×3 (16:21→20:42)
[2021-04-27] MEDS: fentaNYL (PF). 1,000 MCG in SODIUM CHLORIDE 0.9% 80 ML IV SCH ×2 (17:34→21:26)
[2021-04-27] MEDS: LEVOFLOXACIN 500MG-D5W PMX 500 MG in DEXTROSE/WATER 1 100ML.BAG IVPB SCH (18:17)
[2021-04-27 18:34] LABS: Glucose,Whole Blood 183 mg/dL (75-99)
[2021-04-27] MEDS: INSULIN ASPART (NovoLOG) 100 UNIT/ML VIAL SQ SCH (18:43)
[2021-04-27] MEDS: PANTOPRAZOLE 40 MG/10 ML VIAL IVP SCH (20:42)
--- NOTE | 2021-04-27 22:36 | PN ---
PROGRESS NOTE CHIEF COMPLAINT: Covid pneumonia with respiratory failure. HISTORY OF PRESENT ILLNESS: This lady is deteriorating. Pulse ox is more and more difficult to maintain on the ventilator. PHYSICAL EXAMINATION: Breath sounds are heard bilaterally with rales. Cardiac exam demonstrates tachycardia. Abdomen is soft. IMPRESSION: Covid pneumonia with acute respiratory distress syndrome. PLAN: Continue supportive care in ICU. I am unable to reach any family members. MMODL / IJN: [id number] /
[2021-04-28 00:01] LABS: Glucose,Whole Blood 155 mg/dL (75-99)
[2021-04-28] MEDS: CEFEPIME 2 GM in SODIUM CHLORIDE 0.9% 100 ML IVPB SCH ×4 (00:08→23:36)
[2021-04-28] MEDS: INSULIN ASPART (NovoLOG) 100 UNIT/ML VIAL SQ SCH ×4 (00:09→17:27)
[2021-04-28] MEDS: ARTIFICIAL TEARS-HYPROMELLOSE DROPS 15 ML BTL BOTH EYES SCH ×7 (00:09→23:35)
[2021-04-28] MEDS: fentaNYL (PF). 1,000 MCG in SODIUM CHLORIDE 0.9% 80 ML IV SCH ×5 (00:58→21:20)
[2021-04-28 04:29] LABS: Basophils % (A) 0 %; Eosinophils % (A) 0 %; HCT 40.6 % (34.0-46.0); HGB 12.6 gm/dL (11.4-16.0); Hypochromasia Moderate; Lymphocytes # (A) 0.6 k/uL (1.0-4.8); Lymphocytes % (A) 3 %; MCH 30.9 pg (25.0-35.0); MCV 99.8 fL (80.0-100.0); Mean Platelet Volume 7.8; Monocytes # (A) 0.4 k/uL (0-1.0); Monocytes % (A) 2 %; Neutrophils # (A) 21.7 k/uL (1.3-7.7); Neutrophils % (A) 95 %; Platelet Count 346 k/uL (150-450); RBC 4.06 m/uL (3.80-5.40); WBC 22.9 k/uL (3.8-10.6)
[2021-04-28 05:00] LABS: African American GFR (CKD) >90 (>60 ml/min/1.73 sqM); Blood Urea Nitrogen 12 mg/dL (7-17); Calcium 8.4 mg/dL (8.4-10.2); Chloride 101 mmol/L (98-107); Glucose 170 mg/dL (74-99); Non-African American GFR(CKD) >90 (>60 ml/min/1.73 sqM); Potassium 4.2 mmol/L (3.5-5.1); Sodium 143 mmol/L (137-145)
[2021-04-28] MEDS: NOREPINEPHRINE 8 MG in SODIUM CHLORIDE 0.9% 250 ML IV SCH (05:00)
[2021-04-28 05:07] LABS: Anion Gap 1 mmol/L; Carbon Dioxide 41 mmol/L (22-30)
[2021-04-28 05:54] LABS: ABG Base Excess 16.1 mmol/L; ABG Oxygen Saturation 98.1 % (94-97); ABG PH 7.28 (7.35-7.45); ABG PO2 113 mmHg (83-108); ABG TCO2 46 mmol/L (19-24); Allen Test Performed? Yes
[2021-04-28 05:57] LABS: ABG HCO3 43 mmol/L (21-25); ABG PCO2 92 mmHg (35-45)
[2021-04-28 06:01] LABS: Glucose,Whole Blood 129 mg/dL (75-99)
[2021-04-28] MEDS: LEVOTHYROXINE 112 MCG TAB PO SCH (06:32)
--- NOTE | 2021-04-28 06:49 | XR ---
EXAMINATION TYPE: XR chest 1V portable DATE OF EXAM: 04/28/2021 COMPARISON: 04/27/2021 HISTORY: Shortness of breath TECHNIQUE: Single frontal view of the chest is obtained. FINDINGS: There has been mild improvement in the diffuse airspace opacity in the mid and lower lung zones but persistent airspace consolidation persists. There is no pneumothorax or large pleural effusion. Heart size normal. ET tube is 4.7 cm above the malini. There is no change in the left-sided PICC line or NG tube. The osseous structures are intact. IMPRESSION: Moderate to severe acute cardiopulmonary disease with mild interval improvement compared to one day prior.
[2021-04-28] MEDS: ALBUTEROL HFA INHALER INHALATION SCH ×4 (07:13→20:33)
[2021-04-28] MEDS: SYMBICORT 160-4.5 MCG INHALER INHALATION SCH ×2 (07:13→20:33)
--- NOTE | 2021-04-28 08:45 | P.PN ---
Subjective Progress Note Date: 04/28/21 45-year-old -[place] female patient who is currently in the hospital for Covid 19 related pneumonia. The patient is quite ill and the patient has diffuse bilateral pneumonia and this was confirmed by CAT scan of the chest and a CT angiogram also showed right lower lobe pulmonary embolism and for that reason the patient was started on anticoagulation therapeutic doses of Lovenox 100 mg subcu every 12 hours. Meanwhile, the patient remains on Decadron 6 mg and I am going to step of the treatment to use 60 mg IV every 12 hours and start the patient on Baricitinib per protocol. Noted the patient is currently on 15 L of oxygen by nasal cannula addition to 100% nonrebreather facemask. Inflam matory markers remain quite elevated. The patient's LDH level is at 2814 with a CRP level of 50.5. The patient's d-dimer is also elevated and the patient has a d-dimer above 34. The white cell count is 24. The patient's breathing is labored at rest and the patient has mild degree of respiratory distress. No angina. No palpitations. No chest pain. No altered mentation. She is able to maintain diet. She is a bit anxious regarding her ongoing decompensation and respiratory insufficiency. on 04/26/2021, the patient was seen in follow-up. Her condition is decompensated and the patient is feeling more short of breath and clinically the patient has become much more anxious. She did have few panic attacks during which the patient became hypoxic and she desaturated. Based on all this, the patient was placed on 15 L nasal cannula along with 100% nonrebreather facemask and I made recommendations chest with the patient to the ICU. Note that the patient had diffuse bilateral pulmonary infiltrates consistent with Covid integrated pneumonia. The patient was receiving a combination of Decadron 6 mg IV 12 hours and Baricitinib per protocol. The patient was also in atrial fibrillation and the patient is currently on a therapeutic dose of Lovenox 100 mg subcu every 12 hours. Computed tomography scan of the chest was completed and the patient was found to have some suspicious filling defects consistent with pulmonary embolism in the right lower lobe. Antipronation dose adjustment was done yesterday. On today's evaluation as stated, the patient is anxious and the patient was given a dose of Ativan on the medical floor. I made recommendations transfer the patient to the ICU and use BiPAP if needed.upon arrival to the ICU, the patient the blood. That showed a pH of 7.42 with a pCO2 of 49 and pO2 of 71. The blood work from today is still pending. D-dimer was above 34.her inflammatory markers were quite elevated. LDH level was 2814 with a CRP of 50.9. Repeated blood work will be obtained from today.a midline will be inserted for IV access. On 2021, the patient is intubated on a mechanical ventilator. In the early interventionist hours around 4 AM, the patient became quite short of breath, hypoxic, her pulse ox was dropping in the low 60s and the patient was sent to be intubated and placed on a mechanical ventilator. I was told by the nursing staff that the patient wanted everything to be done to save her life and she was in the point where she was unable to breathe, extremity tachypneic with a respiratory rate in the mid 40s in the low 50s. Blood gases was done at that time while her being on a BiPAP at a pressure of 14/8 cm of water with an FiO2 o f 100%. The blood gases at that time showed a pH of 7.43 with a pCO2 of 47 and pO2 of 54. At that point, it was decided to proceed with intubation and mechanical ventilation. I was anticipating that the patient was going into further respiratory insufficiency. Based on that, and had already inserted a triple lumen catheter and arterial line catheter yesterday. Intubation process was quite easy and this was done by GIRL FRIDAY at the bedside. For now, the patient is sedated and paralyzed. She is currently on a propofol infusion running at 40 mcg/kg per minute and she is also on Nimbex running at 2.5 mcg/kg per minute. The patient is an assist-control mode of mechanical ventilation. At this point in time, she is quite synchronous with the mechanical ventilator and she is on assist control of 34, FiO2 of 100% with a PEEP of 18 and a tidal volume of 400. Peak airway pressure is 63. Blood pressure is 59. The blood gases was done on this current setting showed a pH of 7.42 with a pCO2 of 46 and pO2 of 132. Based on this elevated troponin and static pressures, doctor tidal volume down to 300. Her current peak airway pressure is in the mid 40s anesthetic airway pressure is 43. Follow-up blood gases are in progress. Meanwhile, the chest x- ray post intubation showed adequate expansion of both lungs. ET tube was in good location. The patient had diffuse bilateral pulmonary infiltrates consistent with Covid 19 related pneumonia/ARDS. The patient's blood work from today shows an LDH level of 2908, her CRP level is at 20.0. Her d-dimer is 16.5. Her white cell count of 20.4 and hemoglobin is at 13.1. She is hemodynamically stable. She is on IV fluids currently running at 0.9 at the rate of 70 mL an hour. The patient remains on Decadron 6 mg IV every 12 hours. She is on Lovenox 100 mg subcu every 12 hours as the patient's CT angiogram showed evidence of questionable right lower lobe subsegmental pulmonary embolism. Patient is also on empiric antibiotic coverage with IV cefepime. The pro-calcitonin level was quite elevated at 4.6. cultures were sent. I have also on Levaquin in combination with cefepime as broad-spectrum antibiotic coverage. She'll be started on enteral feeding for nutritional support. Family will be updated on the condition. Condition is very critical. 04/28/2021, the patient is intubated on a mechanical ventilator. Family has bee n updated on her condition. The patient went into respiratory failure requiring intubation mechanical ventilation. 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 The patient was intubated yes terday pH is currently on assist control mode of mechanical ventilation. She is on a tidal volume of 300 with a rate of 34 and therefore it is currently at 60% with a PEEP of 18. The patient has a airway pressure of 40 anesthetic airway pressures 38. Chest x-ray from today shows some improvement in aeration bilaterally and this could be potentially a PEEP effect. ET tube is in a good location. Orogastric tube is also in a good location. The patient has a triple lumen catheter in the left subclavian vein. The patient continues to receive treatment for Covid 19. She is on a combination of sepsis Decadron 6 mg IV every 12 hours and she is also on Lovenox and she is currently on a therapeutic dose as the CT angiogram showed a questionable filling defect in the right lower lobe pulmonary artery branch. Tympanic clinic, the patient is also covered with a combination of cefepime and Levaquin. Her pro-calcitonin level was significantly elevated. I was concerned of an underlying infection and for that reason the patient was covered with broad-spectrum antibiotics. The white cell count today is at 22.9 which is still elevated. In terms of her blood gases, the pH currently is at 7.28 with a pCO2 of 92 and pO2 of 113. The patient was developing some respiratory acidosis. I added some bicarb infusion yesterday and the bicarb infusion is running at the rate of 75 mL an hour. The serum bicarbonate currently is at 41. he is hemodynamically stable. She is on no pressors. BUN 12 with a creatinine of 0.4. The LDH level from yesterday was 2908. His CRP level was 20.0. Her d-dimer came down from 34-16.5. She was started on enteral feeding for nutritional support. She is currently on vital high protein at the rate of 30 mL an hour. The fluid balance has been +1.3 L o archie the past 24 hours. She is afebrile. Objective - Vital Signs Vital signs: Vital Signs Temp 97.4 F L 04/28/21 04:00 Pulse 89 04/28/21 07:00 Resp 34 H 04/28/21 07:00 BP 106/65 04/28/21 07:00 Pulse Ox 94 L 04/28/21 07:00 Intake & Output 04/27/21 04/28/21 04/28/21 18:59 06:59 18:59 Intake Total 7611.172 7896.047 175 Output Total 445 700 65 Balance 335.582 5998.047 110 Weight 104.6 kg Intake: IV 960 1595 145 Dextrose 5% in Water 1, 150 825 75 000 ml @ 75 mls/hr IV . [id number] MAUREEN with Sodium Bicarb (1 Meq/ml) 150 ml Rx#:[id number] Sodium Chloride 0.9% 1, 810 770 70 000 ml @ 70 mls/hr IV . [id number] MAUREEN Rx#:[id number] Intake, IV Titration 293.763 608.047 Amount Cisatracurium 200 mg In 182.780 Sodium Chloride 0.9% 180 ml @ 1 MCG/KG/MIN 6.26 mls/hr IV .Q24H MAUREEN Rx#: [id number] fentaNYL (PF). 1,000 mcg 12.552 231.796 In Sodium Chloride 0.9% 80 ml @ 0.5 MCG/KG/HR 5. 23 mls/hr IV .[id number] MAUREEN Rx#:[id number] propofoL 1,000 mg In 98.431 376.251 Empty Bag 1 bag @ Titrate IV .Q0M MAUREEN Rx#: [id number] Tube Feeding 220 30 Other 90 Output: Urine 445 700 65 Other: Voiding Method Indwelling Catheter Indwelling Catheter # Voids 1 ABP, PAP, CO, CI - Last Documented Arterial Blood Pressure 110/52 - Exam Patient is intubated on a mechanical ventilator. She is sedated and paralyzed. Orogastric and orotracheal tube are both in place. Head exam was generally normal. There was no scleral icterus or corneal arcus. Mucous membranes were moist. Neck was supple and without jugular venous distension, thyromegaly, or carotid bruits. Carotids were easily palpable bilaterally. There was no adenopathy. The patient has a left subclavian triple-lumen catheter in place. Lungs sounds are diminished in the patient's crackles in the mid and lower lung field bilaterally Cardiac exam revealed the PMI to be normally situated and sized. The rhythm was regular and no extrasystoles were noted during several minutes of auscultation. The first and second heart sounds were normal and physiologic splitting of the second heart sound was noted. There were no murmurs, rubs, clicks, or gallops. Abdominal exam revealed normal bowel sounds. The abdomen was soft, non-tender, and without masses, organomegaly, or appreciable enlargement of the abdominal aorta. Examination of the extremities revealed easily palpable radial, femoral and pedal pulses. There was no cyanosis, clubbing or edema. Examination of the skin revealed no evidence of significant rashes, suspicious appearing nevi or other concerning lesions. Neurologically, the patient is sedated and paralyzed. Pupils are equal and reactive to light. - Labs CBC & Chem 7: 04/28/21 04:06 04/28/21 04:06 Labs: Abnormal Lab Results - Last 24 Hours (Table) 04/27/21 04/27/21 04/27/21 Range/Units 09:44 09:46 15:39 WBC (3.8-10.6) k/uL Neutrophils # (1.3-7.7) k/uL Lymphocytes # (1.0-4.8) k/uL ABG pH 7.31 L 7.15 L* (7.35-7.45) ABG pCO2 63 H 92 H* (35-45) mmHg ABG pO2 176 H (83-108) mmHg ABG HCO3 32 H 32 H (21-25) mmol/L ABG Total CO2 34 H 35 H (19-24) mmol/L ABG O2 Saturation 99.2 H 93.5 L (94-97) % Carbon Dioxide (22-30) mmol/L Glucose (74-99) mg/dL POC Glucose (mg/dL) 104 H (75-99) mg/dL 04/27/21 04/27/21 04/28/21 Range/Units 18:32 23:59 04:06 WBC 22.9 H (3.8-10.6) k/uL Neutrophils # 21.7 H (1.3-7.7) k/uL Lymphocytes # 0.6 L (1.0-4.8) k/uL ABG pH (7.35-7.45) ABG pCO2 (35-45) mmHg ABG pO2 (83-108) mmHg ABG HCO3 (21-25) mmol/L ABG Total CO2 (19-24) mmol/L ABG O2 Saturation (94-97) % Carbon Dioxide (22-30) mmol/L Glucose (74-99) mg/dL POC Glucose (mg/dL) 183 H 155 H (75-99) mg/dL 04/28/21 04/28/21 04/28/21 Range/Units 04:06 05:50 05:59 WBC (3.8-10.6) k/uL Neutrophils # (1.3-7.7) k/uL Lymphocytes # (1.0-4.8) k/uL ABG pH 7.28 L (7.35-7.45) ABG pCO2 92 H* (35-45) mmHg ABG pO2 113 H (83-108) mmHg ABG HCO3 43 H* (21-25) mmol/L ABG Total CO2 46 H (19-24) mmol/L ABG O2 Saturation 98.1 H (94-97) % Carbon Dioxide 41 H* (22-30) mmol/L Glucose 170 H (74-99) mg/dL POC Glucose (mg/dL) 129 H (75-99) mg/dL Microbiology - Last 24 Hours (Table) 04/27/21 18:05 Urine Culture - Preliminary Urine,Catheterized 04/27/21 11:15 Sputum Culture - Preliminary Sputum Assessment and Plan Plan: 1 acute hypoxic respiratory failure secondary to COVID 19 pneumonia. Not been vaccinated for COVID 19. The patient has bilateral pulmonary infiltrates due to progression of her COVID 19 infection. She was originally symptomatic on 04/11/2021. She was diagnosed having COVID 19 infection on 04/13/2021 and the patient had a brief hospitalization and the patient was discharged home on after being treated as an inpatient basis. She presented back with acute hypoxic respiratory failure with signs of ARDS. The patient progressed very quickly and she was brought into the intensive care unit and she was intubated on 04/27/2021 and she is currently sedated and paralyzed on a mechanical ventilator. She was on a combination of Decadron and Baricitinib. Baricitinib was discontinued because of concern of an infection and elevated pro-calcitonin level. Currently she is only on Decadron. She is also on therapeutic dose of Lovenox regarding a possible filling defect in the right lower lobe pulmonary artery branch. On today's evaluation of 04/28/2021, the patient's remains intubated on a mechanical ventilator. Chest x-ray was noted. Blood has was noted. I have her on a bicarb infusion regarding her underlying respiratory acidosis. Her acid base status is improved. The patient has a stable chest x-ray with diffuse bilateral pulmonary infiltrates. The patient remains on Decadron. The patient remains on broad-spectrum antibiotics with a combination of cefepime and Levaquin. The patient remains on anticoagulation with therapeutic dose of Lovenox. 2 acute hypoxic respiratory failure secondary to above 3 acute right lower lobe pulmonary embolism secondary to Covid 19 infection. the patient is currently on therapeutic dose of Lovenox. 4 history of hypothyroidism 5 history of marijuana smoking Plan Keep the patient sedated and paralyzed for now Change the PEEP down to 16. Keep the rest of the settings unchanged. Continue ventilator support with low tidal volume ventilation, anticipate permissive hypercapnia. Continue bicarb infusion if there is significant acidosis. The bicarb will be continued at the rate of 50 mL an hour. Normal saline will be discontinued. Continue Decadron Pro-calcitonin level was elevated and Baricitinib was discontinued and patient was covered with a broad-spectrum antibiotics pending further cultures. Sriniraisa gabriela she is on a combination of cefepime and Levaquin. Obtain a repeat pro- calcitonin level. Continue Lovenox therapeutic doses Continue vitamin C and vitamin D and zinc supplements Continue Decadron 6 mg IV every 12 hours Obtain follow-up pro-calcitonin level Obtain follow-up chest x-ray we'll continue to follow. Condition is extremely critical. There are several members of her family inquiring about her condition. I asked them all to come in to the hospital for a discussion and conversation and an update on her condition. Her condition is critical. Prognosis poor baseline above-mentioned and will continue to follow. This is a critically care evaluation that was done and more than 30 minutes. Time with Patient: Greater than 30
[2021-04-28] MEDS: DEXTROSE 5% IN WATER 1,000 ML with SODIUM BICARB (1 MEQ/ML) 150 ML IV SCH (09:39)
[2021-04-28] MEDS: CHOLECALCIFEROL 125 MCG (5000 IU) TABLET PO SCH (09:50)
[2021-04-28] MEDS: ENOXAPARIN 100 MG/ML SYRINGE SQ SCH ×2 (09:50→20:55)
[2021-04-28] MEDS: ASCORBIC ACID 500 MG TAB PO SCH (09:50)
[2021-04-28] MEDS: CHLORHEXIDINE GLUCONATE 15 ML CUP MUCOUS MEM SCH ×2 (09:50→20:52)
[2021-04-28] MEDS: PANTOPRAZOLE 40 MG/10 ML VIAL IVP SCH (09:50)
[2021-04-28] MEDS: ZINC SULFATE 220 MG CAP PO SCH (09:50)
[2021-04-28] MEDS: DEXAMETHASONE SOD PHOSPHATE 10 MG/ML 1 ML VIAL IVP SCH ×2 (09:50→20:55)
[2021-04-28 12:09] LABS: Glucose,Whole Blood 108 mg/dL (75-99)
[2021-04-28 12:41] LABS: ABG Base Excess 19.1 mmol/L; ABG Oxygen Saturation 96.4 % (94-97); ABG PH 7.32 (7.35-7.45); ABG PO2 83 mmHg (83-108); ABG TCO2 48 mmol/L (19-24)
[2021-04-28 12:43] LABS: ABG HCO3 45 mmol/L (21-25); ABG PCO2 87 mmHg (35-45)
--- NOTE | 2021-04-28 12:59 | US ---
EXAMINATION TYPE: US venous doppler duplex LE DATE OF EXAM: 04/28/2021 12:49 PM COMPARISON: NONE CLINICAL HISTORY: elevated d-dimer. Exam done portable on covid patient in ICU SIDE PERFORMED: Bilateral TECHNIQUE: The lower extremity deep venous system is examined utilizing real time linear array sonog sanjuanita with graded compression, doppler sonography and color-flow sonography. VESSELS IMAGED: Common Femoral Vein Deep Femoral Vein Greater Saphenous Vein * Femoral Vein Popliteal Vein Small Saphenous Vein * Proximal Calf Veins (* superficial vessels) Right Leg: Positive for DVT popliteal vein. Report called to the patient's ICU nurse. 12:50 PM 2021 Left Leg: Appears negative for DVT IMPRESSION: 1. Exam is positive for right lower extremity DVT.
[2021-04-28] MEDS: LEVOFLOXACIN 500MG-D5W PMX 500 MG in DEXTROSE/WATER 1 100ML.BAG IVPB SCH (15:45)
[2021-04-28] MEDS: CISATRACURIUM 200 MG in SODIUM CHLORIDE 0.9% 180 ML IV SCH (15:46)
[2021-04-28] MEDS: SODIUM CHLORIDE 0.9% 1,000 ML IV SCH (16:06)
[2021-04-28 17:26] LABS: Glucose,Whole Blood 136 mg/dL (75-99)
--- NOTE | 2021-04-28 19:34 | PN ---
PROGRESS NOTE CHIEF COMPLAINT: COVID pneumonia and respiratory distress syndrome. HISTORY OF PRESENT ILLNESS: This lady's condition is about the same. She is still ventilator dependent. She is not significantly improved. Family has been informed. PHYSICAL EXAMINATION: She remains on the ventilator. Vital signs: Normal. Breath sounds are heard bilaterally. IMPRESSION: COVID pneumonia and adult respiratory distress syndrome. PLAN: Continue with supportive care and current treatment. MMODL / IJN: [id number] /
[2021-04-28 23:46] LABS: Glucose,Whole Blood 119 mg/dL (75-99)
[2021-04-29 00:09] LABS: Glucose,Whole Blood 129 mg/dL (75-99)
[2021-04-29] MEDS: INSULIN ASPART (NovoLOG) 100 UNIT/ML VIAL SQ SCH ×4 (00:32→17:36)
[2021-04-29] MEDS: fentaNYL (PF) 2,500 MCG in SODIUM CHLORIDE 0.9% 200 ML IV SCH ×3 (01:18→22:27)
[2021-04-29] MEDS: ARTIFICIAL TEARS-HYPROMELLOSE DROPS 15 ML BTL BOTH EYES SCH ×6 (03:35→23:13)
[2021-04-29] MEDS: DEXTROSE 5% IN WATER 1,000 ML with SODIUM BICARB (1 MEQ/ML) 150 ML IV SCH (03:36)
[2021-04-29 03:58] LABS: Basophils % (A) 0 %; Eosinophils % (A) 0 %; HCT 35.7 % (34.0-46.0); HGB 11.1 gm/dL (11.4-16.0); Hypochromasia Slight; Lymphocytes # (A) 0.3 k/uL (1.0-4.8); Lymphocytes % (A) 2 %; MCH 31.1 pg (25.0-35.0); MCHC 31.2 g/dL (31.0-37.0); MCV 99.9 fL (80.0-100.0); Mean Platelet Volume 8.4; Monocytes # (A) 0.3 k/uL (0-1.0); Monocytes % (A) 2 %; Neutrophils # (A) 15.3 k/uL (1.3-7.7); Neutrophils % (A) 96 %; Platelet Count 284 k/uL (150-450); RBC 3.57 m/uL (3.80-5.40); RDW 13.6 % (11.5-15.5)
[2021-04-29 04:15] LABS: ALT 30 U/L (4-34); AST 37 U/L (14-36); African American GFR (CKD) >90 (>60 ml/min/1.73 sqM); Albumin 2.3 g/dL (3.5-5.0); Alkaline Phosphatase 83 U/L (38-126); Blood Urea Nitrogen 13 mg/dL (7-17); Calcium 8.4 mg/dL (8.4-10.2); Chloride 95 mmol/L (98-107); Glucose 143 mg/dL (74-99); Non-African American GFR(CKD) >90 (>60 ml/min/1.73 sqM); Potassium 4.1 mmol/L (3.5-5.1); Sodium 142 mmol/L (137-145); Total Bilirubin 0.5 mg/dL (0.2-1.3); Total Protein 5.6 g/dL (6.3-8.2)
[2021-04-29 04:21] LABS: Anion Gap 2 mmol/L
[2021-04-29 04:33] LABS: Carbon Dioxide 45 mmol/L (22-30)
[2021-04-29 05:39] LABS: Glucose,Whole Blood 130 mg/dL (75-99)
[2021-04-29] MEDS: LEVOTHYROXINE 112 MCG TAB PO SCH (05:54)
[2021-04-29 06:02] LABS: ABG Base Excess 25.3 mmol/L; ABG Oxygen Saturation 98.8 % (94-97); ABG PH 7.39 (7.35-7.45); ABG PO2 113 mmHg (83-108); ABG TCO2 53 mmol/L (19-24); Allen Test Performed? Yes
[2021-04-29 06:05] LABS: ABG HCO3 50 mmol/L (21-25); ABG PCO2 83 mmHg (35-45)
[2021-04-29] MEDS: CISATRACURIUM 200 MG in SODIUM CHLORIDE 0.9% 180 ML IV SCH ×2 (06:46→17:37)
[2021-04-29] MEDS: SYMBICORT 160-4.5 MCG INHALER INHALATION SCH ×2 (07:48→19:24)
[2021-04-29] MEDS: ALBUTEROL HFA INHALER INHALATION SCH ×4 (07:48→19:24)
[2021-04-29] MEDS: DEXAMETHASONE SOD PHOSPHATE 10 MG/ML 1 ML VIAL IVP SCH ×2 (08:36→20:46)
[2021-04-29] MEDS: PANTOPRAZOLE 40 MG/10 ML VIAL IVP SCH (08:36)
[2021-04-29] MEDS: CHLORHEXIDINE GLUCONATE 15 ML CUP MUCOUS MEM SCH ×2 (08:36→20:46)
[2021-04-29] MEDS: CEFEPIME 2 GM in SODIUM CHLORIDE 0.9% 100 ML IVPB SCH ×3 (08:36→23:15)
[2021-04-29] MEDS: ENOXAPARIN 100 MG/ML SYRINGE SQ SCH ×2 (08:36→21:44)
[2021-04-29] MEDS: CHOLECALCIFEROL 125 MCG (5000 IU) TABLET PO SCH (08:37)
[2021-04-29] MEDS: ZINC SULFATE 220 MG CAP PO SCH (08:37)
[2021-04-29] MEDS: ASCORBIC ACID 500 MG TAB PO SCH (08:37)
--- NOTE | 2021-04-29 08:46 | XR ---
EXAMINATION TYPE: XR chest 1V DATE OF EXAM: 04/29/2021 COMPARISON: Chest x-ray 04/28/2021 HISTORY: Covid pneumonia, patient on ventilator TECHNIQUE: Single frontal view of the chest is obtained. FINDINGS: Endotracheal tube and NG tube, left subclavian central venous catheter are overlying appro priate positions. Bilateral airspace disease groundglass opacity and interstitial changes again noted . No evident pneumothorax or pleural effusion. Cardiomediastinal silhouette is stable. There are over lying artifacts. IMPRESSION: There is no significant interval change. Correlate for pneumonia, edema, ARDS
[2021-04-29] MEDS: NOREPINEPHRINE 8 MG in SODIUM CHLORIDE 0.9% 250 ML IV SCH ×2 (10:28→12:10)
[2021-04-29 11:33] LABS: Glucose,Whole Blood 115 mg/dL (75-99)
[2021-04-29] MEDS ORDERED: VANCOMYCIN IV PER PHARMACY 1 EACH MISC MISCELLANE PRN (13:16)
[2021-04-29] MEDS: VANCOMYCIN 1,750 MG in SODIUM CHLORIDE 0.9% 500 ML 500 ML IVPB SCH (13:47)
[2021-04-29] MEDS: LEVOFLOXACIN 500MG-D5W PMX 500 MG in DEXTROSE/WATER 1 100ML.BAG IVPB SCH (15:04)
--- NOTE | 2021-04-29 16:03 | P.PN ---
Subjective Progress Note Date: 04/29/21 Principal diagnosis: Acute hypoxic respiration is secondary to COVID-19 pneumonia 04/28/2021, the patient is intubated on a mechanical ventilator. Family has been updated on her condition. The patient went into respiratory failure requiring intubation mechanical ventilation. 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 The patient was intubated yesterday pH is currently on assist control mode of mechanical ventilation. She is on a tidal volume of 300 with a rate of 34 and therefore it is currently at 60% with a PEEP of 18. The patient has a airway pressure of 40 anesthetic airway pressures 38. Chest x-ray from today shows some improvement in aeration bilaterally and this could be potentially a PEEP effect. ET tube is in a good location. Orogastric tube is also in a good location. The patient has a triple lumen catheter in the left subclavian vein. The patient continues to receive treatment for Covid 19. She is on a combination of sepsis Decadron 6 mg IV every 12 hours and she is also on Lovenox and she is currently on a therapeutic dose as the CT angiogram showed a questionable filling defect in the right lower lobe pulmonary artery branch. Tympanic clinic, the patient is also covered with a combination of cefepime and Levaquin. Her pro-calcitonin level was significantly elevated. I was concerned of an underlying infection and for that reason the patient was covered with broad-spectrum antibiotics. The white cell count today is at 22.9 which is still elevated. In terms of her blood gases, the pH currently is at 7.28 with a pCO2 of 92 and pO2 of 113. The patient was developing some respiratory acidosis. I added some bicarb infusion yesterday and the bicarb infusion is running at the rate of 75 mL an hour. The serum bicarbonate currently is at 41. he is hemodynamically stable. She is on no pressors. BUN 12 with a creatinine of 0.4. The LDH level from yesterday was 2908. His CRP level was 20.0. Her d-dimer came down from 34-16.5. She was started on enteral feeding for nutritional support. She is currently on vital high protein at the rate of 30 mL an hour. The fluid balance has been +1.3 L over the past 24 hours. She is afebrile. Reevaluated today on 04/29/2021, remains in the ICU intubated and mechanically ventilated. She is on assist control rate of 34 total volume 300 FiO2 50% PEEP of 16. ABG showed a pO2 of 113 pCO2 of 83 pH of 7.39, this ABG was done on 60%, patient remains on propofol at 60 mcg/kg/m, she is on fentanyl at 2.5 mcg/kg/h, she is also on Nimbex at 3 mcg/kg/m, I cut down her IV fluid D5 W with bicarb to 25 mL per hour. Patient remains on cefepime. She does have right popliteal DVT, and she will has acute pulmonary embolism involving the right lower lobe, she is on treatment for and with anticoagulation therapy. Patient is on enteral feeding using vital HP at 31/31 mL per hour. Patient is not of norepinephrine today. Her ventilator settings remained the same, no changes were made, I plan to cut down her PEEP from 16 hopefully down to 14. Electrolytes are normal ho wever her bicarb is 45 and renal profile is normal, CBC showed leukocytosis with WBC count of 16 hemoglobin is 11.1 d-dimer remains elevated at 5.07. Chest x- ray showed no significant interval change compared to the last few days, continues to have bilateral airspace disease, groundglass opacities bilaterally. Consistent with COVID-19 pneumonia. Objective - Vital Signs Vital signs: Vital Signs Temp 98.4 F 04/29/21 12:00 Pulse 79 04/29/21 15:00 Resp 34 H 04/29/21 15:00 BP 106/65 04/29/21 15:00 Pulse Ox 94 L 04/29/21 15:00 Intake & Output 04/28/21 04/29/21 04/29/21 18:59 06:59 18:59 Intake Total 2639.383 5168.655 9804.126 Output Total 755 565 450 Balance 9591.542 0035.229 1319.126 Weight 111 kg Intake: IV 1396 803 348 Cefepime 2 gm In Sodium 200 Chloride 0.9% 100 ml @ 25 mls/hr IVPB Q8HR [facility] Rx# :[id number] Dextrose 5% in Water 1, 700 550 50 000 ml @ 25 mls/hr IV . Q24H [facility] with Sodium Bicarb (1 Meq/ml) 150 ml Rx#:[id number] Levofloxacin 500Mg-D5w 100 100 Pmx 500 mg In Dextrose/ Water 1 100ml.bag @ 100 mls/hr IVPB Q24H [facility] Rx#: [id number] Pressure Bag 36 33 18 Sodium Chloride 0.9% 1, 360 220 180 000 ml @ 20 mls/hr IV . Q24H [facility] Rx#:[id number] Intake, IV Titration 752.383 792.227 9390.126 Amount Cisatracurium 200 mg In 207.512 148.976 67.394 Sodium Chloride 0.9% 180 ml @ 1 MCG/KG/MIN 6.26 mls/hr IV .Q24H [facility] Rx#: [id number] Norepinephrine 8 mg In 20.187 Sodium Chloride 0.9% 250 ml @ 0.05 MCG/KG/MIN 10. 094 mls/hr IV .Q24H [facility] Rx#:[id number] Vancomycin 1,750 mg In 500 Sodium Chloride 0.9% 500 ml 500 ml @ 167 mls/hr IVPB Q12H [facility] Rx#: [id number] fentaNYL (PF) 2,500 mcg 237.965 In Sodium Chloride 0.9% 200 ml @ 0.5 MCG/KG/HR 5. 23 mls/hr IV .Q24H [facility] Rx #:[id number] fentaNYL (PF). 1,000 mcg 244.871 47.874 In Sodium Chloride 0.9% 80 ml @ 0.5 MCG/KG/HR 5. 23 mls/hr IV .Q19H8M [facility] Rx#:[id number] propofoL 1,000 mg In 300 347.379 286.58 Empty Bag 1 bag @ Titrate IV .Q0M [facility] Rx#: [id number] Tube Feeding 401 279 279 Other 90 60 30 Output: Urine 755 565 450 Other: Voiding Method Indwelling Catheter Indwelling Catheter Indwelling Catheter ABP, PAP, CO, CI - Last Documented Arterial Blood Pressure 111/57 - Exam Physical Exam revealed a 46-year-old -Serbian female, intubated, mechanically ventilated, sedated and paralyzed. Head: Atraumatic, normocephalic, orogastric tube and endotracheal tube are intact. HEENT:[Neck is supple.] [No neck masses.] [No thyromegaly.] [No JVD.] Left subclavian triple-lumen catheter is noted. No adenopathy is appreciated. Chest: [Fine crackles at the bases symmetrical chest expansion. Cardiac Exam: [Normal S1 and S2, no S3 gallop, no murmur.] Abdomen: [Soft, nontender, no megaly, no rebound, no guarding, normal bowel sounds.] Extremities: [No clubbing, no edema, no cyanosis.] Good pulses bilaterally. Neurological Exam: Patient is sedated and paralyzed, could not assess neurological status. Psychiatric: Could not assess either - Labs CBC & Chem 7: 04/29/21 03:20 04/29/21 03:20 Labs: Abnormal Lab Results - Last 24 Hours (Table) 04/28/21 04/28/21 04/28/21 Range/Units 04:06 17:22 23:43 WBC (3.8-10.6) k/uL RBC (3.80-5.40) m/uL Hgb (11.4-16.0) gm/dL Neutrophils # (1.3-7.7) k/uL Lymphocytes # (1.0-4.8) k/uL D-Dimer (<0.60) mg/L FEU ABG pCO2 (35-45) mmHg ABG pO2 (83-108) mmHg ABG HCO3 (21-25) mmol/L ABG Total CO2 (19-24) mmol/L ABG O2 Saturation (94-97) % Chloride (98-107) mmol/L Carbon Dioxide (22-30) mmol/L Glucose (74-99) mg/dL POC Glucose (mg/dL) 136 H 119 H (75-99) mg/dL AST (14-36) U/L Lactate Dehydrogenase (313-618) U/L C-Reactive Protein (<1.0) mg/dL Total Protein (6.3-8.2) g/dL Albumin (3.5-5.0) g/dL Procalcitonin 0.80 H (0.02-0.09) ng/mL 04/29/21 04/29/21 04/29/21 Range/Units 00:07 03:20 03:20 WBC (3.8-10.6) k/uL RBC (3.80-5.40) m/uL Hgb (11.4-16.0) gm/dL Neutrophils # (1.3-7.7) k/uL Lymphocytes # (1.0-4.8) k/uL D-Dimer 5.07 H (<0.60) mg/L FEU ABG pCO2 (35-45) mmHg ABG pO2 (83-108) mmHg ABG HCO3 (21-25) mmol/L ABG Total CO2 (19-24) mmol/L ABG O2 Saturation (94-97) % Chloride (98-107) mmol/L Carbon Dioxide (22-30) mmol/L Glucose (74-99) mg/dL POC Glucose (mg/dL) 129 H (75-99) mg/dL AST (14-36) U/L Lactate Dehydrogenase 1212 H (313-618) U/L C-Reactive Protein 9.0 H (<1.0) mg/dL Total Protein (6.3-8.2) g/dL Albumin (3.5-5.0) g/dL Procalcitonin (0.02-0.09) ng/mL 04/29/21 04/29/21 04/29/21 Range/Units 03:20 03:20 05:38 WBC 16.0 H (3.8-10.6) k/uL RBC 3.57 L (3.80-5.40) m/uL Hgb 11.1 L (11.4-16.0) gm/dL Neutrophils # 15.3 H (1.3-7.7) k/uL Lymphocytes # 0.3 L (1.0-4.8) k/uL D-Dimer (<0.60) mg/L FEU ABG pCO2 (35-45) mmHg ABG pO2 (83-108) mmHg ABG HCO3 (21-25) mmol/L ABG Total CO2 (19-24) mmol/L ABG O2 Saturation (94-97) % Chloride 95 L (98-107) mmol/L Carbon Dioxide 45 H* (22-30) mmol/L Glucose 143 H (74-99) mg/dL POC Glucose (mg/dL) 130 H (75-99) mg/dL AST 37 H (14-36) U/L Lactate Dehydrogenase (313-618) U/L C-Reactive Protein (<1.0) mg/dL Total Protein 5.6 L (6.3-8.2) g/dL Albumin 2.3 L (3.5-5.0) g/dL Procalcitonin (0.02-0.09) ng/mL 04/29/21 04/29/21 Range/Units 05:58 11:31 WBC (3.8-10.6) k/uL RBC (3.80-5.40) m/uL Hgb (11.4-16.0) gm/dL Neutrophils # (1.3-7.7) k/uL Lymphocytes # (1.0-4.8) k/uL D-Dimer (<0.60) mg/L FEU ABG pCO2 83 H* (35-45) mmHg ABG pO2 113 H (83-108) mmHg ABG HCO3 50 H* (21-25) mmol/L ABG Total CO2 53 H (19-24) mmol/L ABG O2 Saturation 98.8 H (94-97) % Chloride (98-107) mmol/L Carbon Dioxide (22-30) mmol/L Glucose (74-99) mg/dL POC Glucose (mg/dL) 115 H (75-99) mg/dL AST (14-36) U/L Lactate Dehydrogenase (313-618) U/L C-Reactive Protein (<1.0) mg/dL Total Protein (6.3-8.2) g/dL Albumin (3.5-5.0) g/dL Procalcitonin (0.02-0.09) ng/mL Microbiology - Last 24 Hours (Table) 04/27/21 18:30 Blood Culture - Final Blood 04/27/21 11:15 Gram Stain - Final Sputum Sputum Culture - Final 04/27/21 18:05 Urine Culture - Final Urine,Catheterized Assessment and Plan Assessment: Impression: Acute hypoxic respiratory failure secondary to COVID-19 pneumonia, patient is not vaccinated. Her diagnosis was initially made on 04/13/2021, hospitalized and discharged home on 04/18, readmitted and intubated on 04/27/2021, remains intubated and mechanically ventilated. Initially placed on Baricitinib which was discontinued because of concern of infection and elevated pro calcitonin. Mauro nt is on therapeutic Lovenox because of abnormal venous Doppler and abnormal CT angiogram of the chest. Acute right lower lobe pulmonary embolism Acute respiratory acidosis History of hypothyroidism History of marijuana smoking Recommendation: Continue ventilatory support Continue sedation and paralysis Continue permissive hypercapnia Continue bicarb drip but cut down the dose. Now she is at 25 mL per hour. Keep patient off Baricitinib because of elevated pro calcitonin and give antibiotics empirically she is on Levaquin and cefepime Continue COVID-19 cocktail. Continue therapeutic doses of Lovenox. Continue to monitor daily x-rays and daily inflammatory markers. Continue enteral feeding Continue GI and DVT prophylaxis Hemodynamic support if necessary. Patient remains critically ill. We will continue to follow, Critical care time is over 30 minutes. Time with Patient: Greater than 30
[2021-04-29] MEDS: SODIUM CHLORIDE 0.9% 1,000 ML IV SCH (17:36)
--- NOTE | 2021-04-29 21:54 | P.CONS ---
History of Present Illness - Reason for Consult Consult date: 04/29/21 bacteremia Requesting physician: Huma Hewitt - Chief Complaint shortness of breath x days - History of Present Illness History of present illness : Patient is a 46-year-old -Algerian female who was initially admitted to the hospital from April 13, 2021 till April 18, 2021 and the patient was treated for COVID-19 pneumonia patient was subsequently discharged home patient presented back to the hospital within 48 hours for evaluation of worsening shortness of breath that apparently progressed to get worse since the patient discharged from the hospital patient on arrival to the ER second patient did have a fever 100.7 degrees following right that was on 04/20/2021 and a fever of 100.3 on April 23, 2021 no fever has been recorded since then, the patient did have a worsening of her respiratory status requiring intubation on 04/27/2021 patient did have a central line and art line placed on 04/26/2021, patient did have evidence of right lower lobe pulmonary embolism on CT angiogram done this admission and evidence of a right leg DVT that was noticed on ultrasound completed yesterday on 04/28/2021 patient did have a blood culture drawn on the which is now showing gram-positive cocci that has prompted this infectious disease consultation patient did have a sputum culture done on the which has been negative so far patient is currently being treated with cefepime and vancomycin, most information has been obtained from review of the chart and told nursing staff that the patient is currently intubated on the vent and is unable to provide any history Review of system: Positive point has been mentioned in HPI complete review could not be obtained because of underlying mental status. Past medical history : Reviewed, documented below Past surgical history : Reviewed, documented below Social history: Reviewed, documented below Medications: Reviewed, as documented below EXAMINATION: Vital sigans= Reviewed and documented below GENERAL DESCRIPTION: Middle-aged female intubated on the vent, no distress. No tachypnea or accessory muscle of respiration use. HEENT: Shows Pallor , no scleral icterus. Oral mucous membrane is dry. NECK: Trachea central, no thyromegaly. LUNGS: Unlabored breathing. Decreased breath sound at the base. No wheeze or crackle. HEART: S1, S2, regular rate and rhythm. ABDOMEN: Soft, no tenderness , guarding or rigidity EXTREMITIES: No edema of feet. SKIN: No rash, no masses palpable. NEUROLOGICAL: The patient is sedated on the vent LABS AND RADIOLOGY: Reviewed results see below Assessment :1-patient with a positive blood culture with gram-positive cocci with a question of possible staph epi which can be still contaminated versus a Staph aureus source could be possible pneumonia less likely lines which has just been placed patient currently do not have any evidence of cellulitis abdominal soft on clinical examination and no other obvious focus of infection Plan: 1-blood cultures will be repeated document clearance of bacteremia 2-vancomycin pharmacy to dose with a target trough of 15 while watching kidney function and Vanco trough closely. 3-recheck inflammatory markers We will follow on clinical condition and cultures to further adjust medication if needed Thank you for this consultation we will follow the patient along with you Past Medical History Past Medical History: GERD/Reflux, Pneumonia (COVID 19 infection on 04/11/2021), Thyroid Disorder Additional Past Medical History / Comment(s): overactive bladder History of Any Multi-Drug Resistant Organisms: None Reported Past Surgical History: Hysterectomy Additional Past Surgical History / Comment(s): partial hysterectomy, 09/11/14 thyroid removal Past Anesthesia/Blood Transfusion Reactions: No Reported Reaction Past Psychological History: Anxiety Smoking Status: Never smoker Past Alcohol Use History: Occasional Past Drug Use History: Marijuana Additional Drug Use History / Comment(s): occassional use of marijuana per pt - Past Family History Mother Family Medical History: Cancer, Hypertension Additional Family Medical History / Comment(s): colon cancer. maternal aunt with breast cancer age 40 Sister(s) Family Medical History: Cancer Additional Family Medical History / Comment(s): breast cancer age 49 Father Family Medical History: Hypertension Additional Family Medical History / Comment(s): paternal gradmother breast cancer age 80 Medications and Allergies Home Medications Medication Instructions Recorded Confirmed Type Levothyroxine Sodium [Synthroid] 112 mcg PO DAILY 04/13/21 04/20/21 History predniSONE 50 mg PO DAILY #5 tab 04/21/21 Rx Allergies Allergy/AdvReac Type Severity Reaction Status Date / Time No Known Allergies Allergy Verified 04/20/21 23:23 Physical Exam Vitals: Vital Signs Temp Pulse Resp BP Pulse Ox 04/29/21 15:00 79 34 H 106/65 94 L 04/29/21 14:00 82 34 H 106/65 94 L 04/29/21 13:00 85 34 H 106/65 94 L 04/29/21 12:00 98.4 F 91 34 H 106/65 93 L 04/29/21 11:00 101 H 34 H 106/65 91 L 04/29/21 10:00 105 H 34 H 92 L 04/29/21 09:00 92 34 H 94 L 04/29/21 08:00 97.9 F 93 34 H 95 04/29/21 07:00 103 H 33 H 106/65 94 L 04/29/21 06:00 93 34 H 106/65 96 04/29/21 05:00 96 35 H 106/65 96 04/29/21 04:00 101 H 34 H 106/65 96 04/29/21 03:00 102 H 34 H 106/65 95 04/29/21 02:00 109 H 36 H 106/65 94 L 04/29/21 01:00 112 H 35 H 106/65 94 L 04/29/21 00:00 97.8 F 112 H 34 H 106/65 93 L 04/28/21 23:09 106 H 35 H 106/65 93 L 04/28/21 23:00 106 H 35 H 106/65 93 L 04/28/21 22:00 112 H 34 H 106/65 92 L 04/28/21 21:00 101 H 34 H 106/65 94 L 04/28/21 20:00 97.9 F 100 34 H 106/65 95 04/28/21 19:00 109 H 34 H 93 L 04/28/21 18:00 91 34 H 95 04/28/21 17:00 97 34 H 96 Intake and Output 04/29/21 04/29/21 04/29/21 06:59 14:59 22:59 Intake Total 2099.960 8799.126 254 Output Total 430 405 45 Balance 156.767 3351.126 209 Intake: IV 584 225 123 Dextrose 5% in Water 1, 400 50 000 ml @ 25 mls/hr IV . Q24H [facility] with Sodium Bicarb (1 Meq/ml) 150 ml Rx#:[id number] Levofloxacin 500Mg-D5w 100 Pmx 500 mg In Dextrose/ Water 1 100ml.bag @ 100 mls/hr IVPB Q24H [facility] Rx#: [id number] Pressure Bag 24 15 3 Sodium Chloride 0.9% 1, 160 160 20 000 ml @ 20 mls/hr IV . Q24H [facility] Rx#:[id number] Intake, IV Titration 724.961 1454.126 100 Amount Cisatracurium 200 mg In 148.976 67.394 Sodium Chloride 0.9% 180 ml @ 1 MCG/KG/MIN 6.26 mls/hr IV .Q24H [facility] Rx#: [id number] Norepinephrine 8 mg In 20.187 Sodium Chloride 0.9% 250 ml @ 0.05 MCG/KG/MIN 10. 094 mls/hr IV .Q24H [facility] Rx#:[id number] Vancomycin 1,750 mg In 500 Sodium Chloride 0.9% 500 ml 500 ml @ 167 mls/hr IVPB Q12H [facility] Rx#: [id number] fentaNYL (PF) 2,500 mcg 237.965 In Sodium Chloride 0.9% 200 ml @ 0.5 MCG/KG/HR 5. 23 mls/hr IV .Q24H [facility] Rx #:[id number] propofoL 1,000 mg In 250.101 186.58 100 Empty Bag 1 bag @ Titrate IV .Q0M [facility] Rx#: [id number] Tube Feeding 217 248 31 Other 60 30 Output: Urine 430 405 45 Other: Voiding Method Indwelling Catheter Indwelling Catheter Indwelling Catheter Weight 111 kg ABP, PAP, CO, CI - Last 8 Hours Arterial Blood Pressure 111/57 Arterial Blood Pressure 106/55 Arterial Blood Pressure 100/48 Arterial Blood Pressure 104/52 Arterial Blood Pressure 107/54 Arterial Blood Pressure 128/56 Arterial Blood Pressure 99/48 Results CBC & Chem 7: 04/29/21 03:20 04/29/21 03:20 Labs: Abnormal Lab Results - Last 24 Hours (Table) 04/28/21 04/28/21 04/28/21 Range/Units 04:06 17:22 23:43 WBC (3.8-10.6) k/uL RBC (3.80-5.40) m/uL Hgb (11.4-16.0) gm/dL Neutrophils # (1.3-7.7) k/uL Lymphocytes # (1.0-4.8) k/uL D-Dimer (<0.60) mg/L FEU ABG pCO2 (35-45) mmHg ABG pO2 (83-108) mmHg ABG HCO3 (21-25) mmol/L ABG Total CO2 (19-24) mmol/L ABG O2 Saturation (94-97) % Chloride (98-107) mmol/L Carbon Dioxide (22-30) mmol/L Glucose (74-99) mg/dL POC Glucose (mg/dL) 136 H 119 H (75-99) mg/dL AST (14-36) U/L Lactate Dehydrogenase (313-618) U/L C-Reactive Protein (<1.0) mg/dL Total Protein (6.3-8.2) g/dL Albumin (3.5-5.0) g/dL Procalcitonin 0.80 H (0.02-0.09) ng/mL 04/29/21 04/29/21 04/29/21 Range/Units 00:07 03:20 03:20 WBC (3.8-10.6) k/uL RBC (3.80-5.40) m/uL Hgb (11.4-16.0) gm/dL Neutrophils # (1.3-7.7) k/uL Lymphocytes # (1.0-4.8) k/uL D-Dimer 5.07 H (<0.60) mg/L FEU ABG pCO2 (35-45) mmHg ABG pO2 (83-108) mmHg ABG HCO3 (21-25) mmol/L ABG Total CO2 (19-24) mmol/L ABG O2 Saturation (94-97) % Chloride (98-107) mmol/L Carbon Dioxide (22-30) mmol/L Glucose (74-99) mg/dL POC Glucose (mg/dL) 129 H (75-99) mg/dL AST (14-36) U/L Lactate Dehydrogenase 1212 H (313-618) U/L C-Reactive Protein 9.0 H (<1.0) mg/dL Total Protein (6.3-8.2) g/dL Albumin (3.5-5.0) g/dL Procalcitonin (0.02-0.09) ng/mL 04/29/21 04/29/21 04/29/21 Range/Units 03:20 03:20 05:38 WBC 16.0 H (3.8-10.6) k/uL RBC 3.57 L (3.80-5.40) m/uL Hgb 11.1 L (11.4-16.0) gm/dL Neutrophils # 15.3 H (1.3-7.7) k/uL Lymphocytes # 0.3 L (1.0-4.8) k/uL D-Dimer (<0.60) mg/L FEU ABG pCO2 (35-45) mmHg ABG pO2 (83-108) mmHg ABG HCO3 (21-25) mmol/L ABG Total CO2 (19-24) mmol/L ABG O2 Saturation (94-97) % Chloride 95 L (98-107) mmol/L Carbon Dioxide 45 H* (22-30) mmol/L Glucose 143 H (74-99) mg/dL POC Glucose (mg/dL) 130 H (75-99) mg/dL AST 37 H (14-36) U/L Lactate Dehydrogenase (313-618) U/L C-Reactive Protein (<1.0) mg/dL Total Protein 5.6 L (6.3-8.2) g/dL Albumin 2.3 L (3.5-5.0) g/dL Procalcitonin (0.02-0.09) ng/mL 04/29/21 04/29/21 Range/Units 05:58 11:31 WBC (3.8-10.6) k/uL RBC (3.80-5.40) m/uL Hgb (11.4-16.0) gm/dL Neutrophils # (1.3-7.7) k/uL Lymphocytes # (1.0-4.8) k/uL D-Dimer (<0.60) mg/L FEU ABG pCO2 83 H* (35-45) mmHg ABG pO2 113 H (83-108) mmHg ABG HCO3 50 H* (21-25) mmol/L ABG Total CO2 53 H (19-24) mmol/L ABG O2 Saturation 98.8 H (94-97) % Chloride (98-107) mmol/L Carbon Dioxide (22-30) mmol/L Glucose (74-99) mg/dL POC Glucose (mg/dL) 115 H (75-99) mg/dL AST (14-36) U/L Lactate Dehydrogenase (313-618) U/L C-Reactive Protein (<1.0) mg/dL Total Protein (6.3-8.2) g/dL Albumin (3.5-5.0) g/dL Procalcitonin (0.02-0.09) ng/mL Microbiology - Last 24 Hours (Table) 04/27/21 18:30 Blood Culture - Final Blood 04/27/21 11:15 Gram Stain - Final Sputum Sputum Culture - Final 04/27/21 18:05 Urine Culture - Final Urine,Catheterized
--- NOTE | 2021-04-29 23:08 | PN ---
PROGRESS NOTE DATE OF SERVICE: 04/25/2021. CHIEF COMPLAINT: COVID pneumonia and respiratory failure. HISTORY OF PRESENT ILLNESS: This lady continues to have difficulty. She short of breath. PHYSICAL EXAMINATION: Breath sounds are heard bilaterally. The cardiac exam is normal. IMPRESSION: COVID pneumonia. PLAN: Continue with supportive care and efforts. MMODL / SHERINN: [id number] /
--- NOTE | 2021-04-29 23:08 | PN ---
PROGRESS NOTE DATE OF SERVICE: 04/24/2021 CHIEF COMPLAINT: COVID pneumonia and respiratory failure. HISTORY OF PRESENT ILLNESS: This lady's condition seems to be deteriorating. She is a little bit more short of breath and she has become somewhat anxious. PHYSICAL EXAMINATION: Breath sounds are diminished with scattered rales anterior and posteriorly. There are no rhonchi. Cardiac exam is normal. Abdomen is soft, nontender. IMPRESSION: COVID pneumonia. PLAN: Continue supportive care. Pulmonology consult. MMODL / IJN: [id number] /
--- NOTE | 2021-04-29 23:08 | PN ---
PROGRESS NOTE CHIEF COMPLAINT: COVID pneumonia and respiratory failure. HISTORY OF PRESENT ILLNESS: This lady's condition is about the same. Chest x-ray is essentially unchanged. She continues on ventilator support. PHYSICAL EXAMINATION: Vital signs are normal. Breath sounds are heard bilaterally on the ventilator. The abdomen is soft without masses. IMPRESSION: COVID pneumonia and respiratory failure. PLAN: Continue with supportive efforts and treatment. MMDAGO / SHERINN: [id number] /
[2021-04-29 23:53] LABS: Glucose,Whole Blood 123 mg/dL (75-99)
[2021-04-30] MEDS: INSULIN ASPART (NovoLOG) 100 UNIT/ML VIAL SQ SCH ×5 (00:01→23:59)
[2021-04-30] MEDS: ARTIFICIAL TEARS-HYPROMELLOSE DROPS 15 ML BTL BOTH EYES SCH ×6 (03:56→23:43)
[2021-04-30] MEDS: VANCOMYCIN 1,750 MG in SODIUM CHLORIDE 0.9% 500 ML 500 ML IVPB SCH (03:59)
[2021-04-30] MEDS: fentaNYL (PF) 2,500 MCG in SODIUM CHLORIDE 0.9% 200 ML IV SCH ×2 (04:08→16:05)
[2021-04-30] MEDS: CISATRACURIUM 200 MG in SODIUM CHLORIDE 0.9% 180 ML IV SCH ×2 (04:24→16:35)
[2021-04-30] MEDS: LEVOTHYROXINE 112 MCG TAB PO SCH (05:51)
[2021-04-30 06:06] LABS: Glucose,Whole Blood 165 mg/dL (75-99)
[2021-04-30 06:25] LABS: ABG Base Excess 23.2 mmol/L; ABG Oxygen Saturation 98.2 % (94-97); ABG PH 7.33 (7.35-7.45); ABG PO2 103 mmHg (83-108); ABG TCO2 52 mmol/L (19-24)
[2021-04-30 06:31] LABS: ABG HCO3 49 mmol/L (21-25); ABG PCO2 93 mmHg (35-45); Allen Test Performed? No
[2021-04-30] MEDS: SODIUM CHLORIDE 0.9% 1,000 ML IV SCH (07:00)
[2021-04-30] MEDS: ALBUTEROL HFA INHALER INHALATION SCH ×4 (07:26→19:16)
[2021-04-30 08:41] LABS: ALT 43 U/L (4-34); AST 49 U/L (14-36); African American GFR (CKD) >90 (>60 ml/min/1.73 sqM); Albumin 2.3 g/dL (3.5-5.0); Alkaline Phosphatase 70 U/L (38-126); Blood Urea Nitrogen 16 mg/dL (7-17); Calcium 8.3 mg/dL (8.4-10.2); Chloride 96 mmol/L (98-107); Glucose 139 mg/dL (74-99); Non-African American GFR(CKD) >90 (>60 ml/min/1.73 sqM); Potassium 4.2 mmol/L (3.5-5.1); Sodium 140 mmol/L (137-145); Total Bilirubin 0.5 mg/dL (0.2-1.3); Total Protein 5.5 g/dL (6.3-8.2)
[2021-04-30] MEDS: DEXTROSE 5% IN WATER 1,000 ML with SODIUM BICARB (1 MEQ/ML) 150 ML IV SCH ×2 (08:46→12:20)
[2021-04-30 08:47] LABS: Anion Gap -3 mmol/L
[2021-04-30] MEDS: CHLORHEXIDINE GLUCONATE 15 ML CUP MUCOUS MEM SCH ×2 (08:51→20:25)
[2021-04-30] MEDS: PANTOPRAZOLE 40 MG/10 ML VIAL IVP SCH (08:52)
[2021-04-30] MEDS: CHOLECALCIFEROL 125 MCG (5000 IU) TABLET PO SCH (08:52)
[2021-04-30] MEDS: CEFEPIME 2 GM in SODIUM CHLORIDE 0.9% 100 ML IVPB SCH ×3 (08:52→23:43)
[2021-04-30] MEDS: DEXAMETHASONE SOD PHOSPHATE 10 MG/ML 1 ML VIAL IVP SCH ×2 (08:52→20:26)
[2021-04-30] MEDS: ENOXAPARIN 100 MG/ML SYRINGE SQ SCH ×2 (08:52→20:26)
[2021-04-30] MEDS: ASCORBIC ACID 500 MG TAB PO SCH (08:52)
[2021-04-30] MEDS: ZINC SULFATE 220 MG CAP PO SCH (08:53)
[2021-04-30 08:59] LABS: Carbon Dioxide 47 mmol/L (22-30)
--- NOTE | 2021-04-30 09:11 | XR ---
EXAMINATION TYPE: XR chest 1V DATE OF EXAM: 04/30/2021 COMPARISON: 04/29/2021 HISTORY: Shortness of breath TECHNIQUE: Single frontal view of the chest is obtained. FINDINGS: Diffuse bilateral infiltrate stable. ET and NG tube noted with the ET tube at the level of the GE junction. Left-sided central line stable. IMPRESSION: 1. Stable bilateral infiltrates. 2. Recommend advancement of the NG tube which appears to be at the level of the GE junction.
[2021-04-30] MEDS: SYMBICORT 160-4.5 MCG INHALER INHALATION SCH ×2 (11:01→19:17)
[2021-04-30 11:46] LABS: Glucose,Whole Blood 106 mg/dL (75-99)
--- NOTE | 2021-04-30 13:15 | P.PN ---
Subjective Progress Note Date: 04/30/21 Principal diagnosis: Acute hypoxic respiration is secondary to COVID-19 pneumonia 04/28/2021, the patient is intubated on a mechanical ventilator. Family has been updated on her condition. The patient went into respiratory failure requiring intubation mechanical ventilation. 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 The patient was intubated yesterday pH is currently on assist control mode of mechanical ventilation. She is on a tidal volume of 300 with a rate of 34 and therefore it is currently at 60% with a PEEP of 18. The patient has a airway pressure of 40 anesthetic airway pressures 38. Chest x-ray from today shows some improvement in aeration bilaterally and this could be potentially a PEEP effect. ET tube is in a good location. Orogastric tube is also in a good location. The patient has a triple lumen catheter in the left subclavian vein. The patient continues to receive treatment for Covid 19. She is on a combination of sepsis Decadron 6 mg IV every 12 hours and she is also on Lovenox and she is currently on a therapeutic dose as the CT angiogram showed a questionable filling defect in the right lower lobe pulmonary artery branch. Tympanic clinic, the patient is also covered with a combination of cefepime and Levaquin. Her pro-calcitonin level was significantly elevated. I was concerned of an underlying infection and for that reason the patient was covered with broad-spectrum antibiotics. The white cell count today is at 22.9 which is still elevated. In terms of her blood gases, the pH currently is at 7.28 with a pCO2 of 92 and pO2 of 113. The patient was developing some respiratory acidosis. I added some bicarb infusion yesterday and the bicarb infusion is running at the rate of 75 mL an hour. The serum bicarbonate currently is at 41. he is hemodynamically stable. She is on no pressors. BUN 12 with a creatinine of 0.4. The LDH level from yesterday was 2908. His CRP level was 20.0. Her d-dimer came down from 34-16.5. She was started on enteral feeding for nutritional support. She is currently on vital high protein at the rate of 30 mL an hour. The fluid balance has been +1.3 L over the past 24 hours. She is afebrile. Reevaluated today on 04/29/2021, remains in the ICU intubated and mechanically ventilated. She is on assist control rate of 34 total volume 300 FiO2 50% PEEP of 16. ABG showed a pO2 of 113 pCO2 of 83 pH of 7.39, this ABG was done on 60%, patient remains on propofol at 60 mcg/kg/m, she is on fentanyl at 2.5 mcg/kg/h, she is also on Nimbex at 3 mcg/kg/m, I cut down her IV fluid D5 W with bicarb to 25 mL per hour. Patient remains on cefepime. She does have right popliteal DVT, and she will has acute pulmonary embolism involving the right lower lobe, she is on treatment for and with anticoagulation therapy. Patient is on enteral feeding using vital HP at 31/31 mL per hour. Patient is not of norepinephrine today. Her ventilator settings remained the same, no changes were made, I plan to cut down her PEEP from 16 hopefully down to 14. Electrolytes are normal ho wever her bicarb is 45 and renal profile is normal, CBC showed leukocytosis with WBC count of 16 hemoglobin is 11.1 d-dimer remains elevated at 5.07. Chest x- ray showed no significant interval change compared to the last few days, continues to have bilateral airspace disease, groundglass opacities bilaterally. Consistent with COVID-19 pneumonia. Reevaluated today on 04/30/2021, patient remains in the ICU, intubated, sedated, mechanically ventilated, paralyzed, patient is on fentanyl at 2.5 mcg/kg/h propofol at 60 mcg/kg/m Nimbex at 1.5 mcg/kg/m, she is also on bicarb drip at 25 mL per hour. Vent settings are assist control rate of 34 tidal volume 300 FiO2 60% PEEP is 16. ABG showed a pO2 of 103 pCO2 of 93 pH of 7.33 hence I cut down her FiO2 down to 50%, and advised nursing to monitor O2 saturation, and titrate the FiO2 accordingly maintaining an O2 saturation above 91%. Electrolytes are normal renal profile is normal pro-calcitonin is 0.39, slightly elevated. Blood cultures showed staph epidermidis, hence vancomycin was discontinued, and the patient remains on cefepime. Patient continues to have relatively high peak airway pressure of 57, plateau pressure is 34. Consistent with a mid 19 pneumonia and ARDS. Objective - Vital Signs Vital signs: Vital Signs Temp 97.7 F 04/30/21 12:00 Pulse 75 04/30/21 13:00 Resp 34 H 04/30/21 13:00 BP 106/65 04/30/21 13:00 Pulse Ox 97 04/30/21 13:00 Intake & Output 04/29/21 04/30/21 04/30/21 18:59 06:59 18:59 Intake Total 2164.785 2048.177 905.604 Output Total 565 610 635 Balance 2374.166 1168.177 270.604 Weight 114.5 kg 114.5 kg Intake: IV 417 276 261 Cefepime 2 gm In Sodium 100 Chloride 0.9% 100 ml @ 25 mls/hr IVPB Q8HR [facility] Rx# :[id number] Dextrose 5% in Water 1, 50 000 ml @ 25 mls/hr IV . Q24H [facility] with Sodium Bicarb (1 Meq/ml) 150 ml Rx#:[id number] Levofloxacin 500Mg-D5w 100 Pmx 500 mg In Dextrose/ Water 1 100ml.bag @ 100 mls/hr IVPB Q24H [facility] Rx#: [id number] Pressure Bag 27 36 21 Sodium Chloride 0.9% 1, 240 240 140 000 ml @ 20 mls/hr IV . Q24H [facility] Rx#:[id number] Intake, IV Titration 8535.950 4412.177 317.604 Amount Cisatracurium 200 mg In 170.053 200 67.604 Sodium Chloride 0.9% 180 ml @ 1 MCG/KG/MIN 6.26 mls/hr IV .Q24H [facility] Rx#: [id number] Dextrose 5% in Water 1, 225 150 000 ml @ 25 mls/hr IV . Q24H [facility] with Sodium Bicarb (1 Meq/ml) 150 ml Rx#:[id number] Norepinephrine 8 mg In 20.187 Sodium Chloride 0.9% 250 ml @ 0.05 MCG/KG/MIN 10. 094 mls/hr IV .Q24H [facility] Rx#:[id number] Vancomycin 1,750 mg In 500 Sodium Chloride 0.9% 500 ml 500 ml @ 167 mls/hr IVPB Q12H [facility] Rx#: [id number] fentaNYL (PF) 2,500 mcg 237.965 398.619 In Sodium Chloride 0.9% 200 ml @ 0.5 MCG/KG/HR 5. 23 mls/hr IV .Q24H [facility] Rx #:[id number] propofoL 1,000 mg In 386.58 455.558 100 Empty Bag 1 bag @ Titrate IV .Q0M [facility] Rx#: [id number] Tube Feeding 403 403 217 Other 30 90 110 Output: Urine 565 610 635 Other: Voiding Method Indwelling Catheter Indwelling Catheter Indwelling Catheter ABP, PAP, CO, CI - Last Documented Arterial Blood Pressure 116/56 - Exam Physical Exam revealed a 46-year-old -[place] female, intubated, mechanically ventilated, sedated and paralyzed. Head: Atraumatic, normocephalic, orogastric tube and endotracheal tube are intact. HEENT:[Neck is supple.] [No neck masses.] [No thyromegaly.] [No JVD.] Left subclavian triple-lumen catheter is noted. No adenopathy is appreciated. Chest: [Fine crackles at the bases symmetrical chest expansion. Cardiac Exam: [Normal S1 and S2, no S3 gallop, no murmur.] Abdomen: [Soft, nontender, no megaly, no rebound, no guarding, normal bowel sounds.] Extremities: [No clubbing, no edema, no cyanosis.] Good pulses bilaterally. Neurological Exam: Patient is sedated and paralyzed, could not assess neurological status. Psychiatric: Could not assess either - Labs CBC & Chem 7: 04/29/21 03:20 04/30/21 08:10 Labs: Abnormal Lab Results - Last 24 Hours (Table) 04/29/21 04/30/21 04/30/21 Range/Units 23:51 04:05 04:05 ABG pH (7.35-7.45) ABG pCO2 (35-45) mmHg ABG HCO3 (21-25) mmol/L ABG Total CO2 (19-24) mmol/L ABG O2 Saturation (94-97) % Chloride (98-107) mmol/L Carbon Dioxide (22-30) mmol/L Glucose (74-99) mg/dL POC Glucose (mg/dL) 123 H (75-99) mg/dL Calcium (8.4-10.2) mg/dL AST (14-36) U/L ALT (4-34) U/L C-Reactive Protein 6.5 H (<1.0) mg/dL Total Protein (6.3-8.2) g/dL Albumin (3.5-5.0) g/dL Procalcitonin 0.39 H (0.02-0.09) ng/mL 04/30/21 04/30/21 04/30/21 Range/Units 05:23 06:04 08:10 ABG pH 7.33 L (7.35-7.45) ABG pCO2 93 H* (35-45) mmHg ABG HCO3 49 H* (21-25) mmol/L ABG Total CO2 52 H (19-24) mmol/L ABG O2 Saturation 98.2 H (94-97) % Chloride 96 L (98-107) mmol/L Carbon Dioxide 47 H* (22-30) mmol/L Glucose 139 H (74-99) mg/dL POC Glucose (mg/dL) 165 H (75-99) mg/dL Calcium 8.3 L (8.4-10.2) mg/dL AST 49 H (14-36) U/L ALT 43 H (4-34) U/L C-Reactive Protein (<1.0) mg/dL Total Protein 5.5 L (6.3-8.2) g/dL Albumin 2.3 L (3.5-5.0) g/dL Procalcitonin (0.02-0.09) ng/mL 04/30/21 Range/Units 11:44 ABG pH (7.35-7.45) ABG pCO2 (35-45) mmHg ABG HCO3 (21-25) mmol/L ABG Total CO2 (19-24) mmol/L ABG O2 Saturation (94-97) % Chloride (98-107) mmol/L Carbon Dioxide (22-30) mmol/L Glucose (74-99) mg/dL POC Glucose (mg/dL) 106 H (75-99) mg/dL Calcium (8.4-10.2) mg/dL AST (14-36) U/L ALT (4-34) U/L C-Reactive Protein (<1.0) mg/dL Total Protein (6.3-8.2) g/dL Albumin (3.5-5.0) g/dL Procalcitonin (0.02-0.09) ng/mL Microbiology - Last 24 Hours (Table) 04/27/21 18:30 Blood Culture Gram Stain - Preliminary Blood Blood Culture - Preliminary Staphylococcus epidermidis 04/27/21 18:30 Blood Culture - Final Blood 04/27/21 11:15 Gram Stain - Final Sputum Sputum Culture - Final Assessment and Plan Assessment: Impression: Acute hypoxic respiratory failure secondary to COVID-19 pneumonia, patient is not vaccinated. Diagnosed initially on 04/13/2021, hospitalized and discharged home on 04/18, readmitted and intubated on 04/27/2021, remains intubated and mechanically ventilated. Initially placed on Baricitinib which was discontinued because of concern of infection and elevated pro calcitonin. Patient is on therapeutic Lovenox because of abnormal venous Doppler and abnormal CT angiogram of the chest. Acute right lower lobe pulmonary embolism Acute respiratory acidosis History of hypothyroidism History of marijuana smoking Recommendation: Continue ventilatory support, titrate oxygen down maintaining O2 saturation of 91%. Continue PEEP at 16 for today. Continue anticoagulation therapy. Continue sedation and paralysis Continue permissive hypercapnia Continue bicarb at 25 mL per hour. Continue Levaquin and cefepime Continue COVID-19 cocktail. Continue therapeutic doses of Lovenox. Continue to monitor daily x-rays and daily inflammatory markers. Continue enteral feeding , patient is on vital HP 31 mL/h/oh Continue GI and DVT prophylaxis Hemodynamic support if necessary. Patient remains critically ill. We will continue to follow, Critical care time is over 30 minutes. Time with Patient: Greater than 30
--- NOTE | 2021-04-30 14:02 | PN ---
PROGRESS NOTE DATE OF SERVICE: 04/30/2021 CHIEF COMPLAINT: Pneumonia and respiratory failure. HISTORY OF PRESENT ILLNESS: This lady is stable and unchanged. She remains on the ventilator. She is not on pressors. PHYSICAL EXAMINATION: Her vital signs are unchanged. Breath sounds are heard bilaterally. Abdomen is soft. Extremities are perfused, but there is no other intervening findings. IMPRESSION: COVID pneumonia with respiratory distress syndrome. PLAN: Continue with ventilator support. MMODL / IJN: [id number] /
[2021-04-30] MEDS: LEVOFLOXACIN 500MG-D5W PMX 500 MG in DEXTROSE/WATER 1 100ML.BAG IVPB SCH (14:38)
[2021-04-30 14:41] LABS: Basophils % (A) 0 %; Eosinophils % (A) 0 %; HCT 39.8 % (34.0-46.0); Hypochromasia Marked; Lymphocytes # (A) 0.5 k/uL (1.0-4.8); Lymphocytes % (A) 3 %; MCH 31.5 pg (25.0-35.0); MCHC 30.1 g/dL (31.0-37.0); MCV 104.6 fL (80.0-100.0); Macrocytosis Slight; Mean Platelet Volume 10.8; Monocytes # (A) 0.4 k/uL (0-1.0); Monocytes % (A) 2 %; Neutrophils # (A) 17.5 k/uL (1.3-7.7); Neutrophils % (A) 94 %; Platelet Count 388 k/uL (150-450); RBC 3.81 m/uL (3.80-5.40); RDW 13.7 % (11.5-15.5); WBC 18.5 k/uL (3.8-10.6)
[2021-04-30 17:52] LABS: Glucose,Whole Blood 120 mg/dL (75-99)
--- NOTE | 2021-04-30 22:44 | P.PN ---
Subjective Progress Note Date: 04/30/21 Principal diagnosis: Pneumonia and bacteremia Interval history : Patient is a 46-year-old -[place] female with admission diagnoses: Acute COVID-19 pneumonia subsequently admission to the hospital with worsening respiratory status has been diagnosed with a DVT and PE. On today's evaluation that is 04/30/2021, the patient has been afebrile, the patient is hemodynamically stable, FiO2 is currently down to 50%, no significant purulent secretion through the ET or diarrhea has been reported by the nursing staff Objective - Vital Signs Vital signs: Vital Signs Temp 97.8 F 04/30/21 20:00 Pulse 85 04/30/21 21:00 Resp 44 H 04/30/21 21:00 BP 106/65 04/30/21 15:00 Pulse Ox 93 L 04/30/21 21:00 Intake & Output 04/30/21 04/30/21 05/01/21 06:59 18:59 06:59 Intake Total 2048.177 2070.165 267 Output Total 610 1035 150 Balance 0361.370 2690.165 117 Weight 114.5 kg 114.5 kg Intake: IV 276 576 69 Cefepime 2 gm In Sodium 200 Chloride 0.9% 100 ml @ 25 mls/hr IVPB Q8HR [facility] Rx# :[id number] Levofloxacin 500Mg-D5w 100 Pmx 500 mg In Dextrose/ Water 1 100ml.bag @ 100 mls/hr IVPB Q24H [facility] Rx#: [id number] Pressure Bag 36 36 9 Sodium Chloride 0.9% 1, 240 240 60 000 ml @ 20 mls/hr IV . Q24H [facility] Rx#:[id number] Intake, IV Titration 1279.177 982.165 75 Amount Cisatracurium 200 mg In 200 157.165 Sodium Chloride 0.9% 180 ml @ 1 MCG/KG/MIN 6.26 mls/hr IV .Q24H [facility] Rx#: [id number] Dextrose 5% in Water 1, 225 275 75 000 ml @ 25 mls/hr IV . Q24H [facility] with Sodium Bicarb (1 Meq/ml) 150 ml Rx#:[id number] Norepinephrine 8 mg In 0 Sodium Chloride 0.9% 250 ml @ 0.05 MCG/KG/MIN 10. 094 mls/hr IV .Q24H [facility] Rx#:[id number] fentaNYL (PF) 2,500 mcg 398.619 250 In Sodium Chloride 0.9% 200 ml @ 0.5 MCG/KG/HR 5. 23 mls/hr IV .Q24H [facility] Rx #:[id number] propofoL 1,000 mg In 455.558 300 Empty Bag 1 bag @ Titrate IV .Q0M [facility] Rx#: [id number] Tube Feeding 403 372 93 Other 90 140 30 Output: Urine 610 1035 150 Other: Voiding Method Indwelling Catheter Indwelling Catheter Indwelling Catheter ABP, PAP, CO, CI - Last Documented Arterial Blood Pressure 133/54 - Exam GENERAL DESCRIPTION: Middle-aged female intubated on the vent RESPIRATORY SYSTEM: Unlabored breathing , decreased breath sounds at bases HEART: S1 S2 regular rate and rhythm ,no loud murmurs ABDOMEN: Soft , no tenderness EXTREMITIES: No edema feet - Labs CBC & Chem 7: 05/01/21 03:50 05/01/21 03:50 Labs: Abnormal Lab Results - Last 24 Hours (Table) 04/29/21 04/30/21 04/30/21 Range/Units 23:51 04:05 04:05 WBC (3.8-10.6) k/uL MCV (80.0-100.0) fL MCHC (31.0-37.0) g/dL Neutrophils # (1.3-7.7) k/uL Lymphocytes # (1.0-4.8) k/uL ABG pH (7.35-7.45) ABG pCO2 (35-45) mmHg ABG HCO3 (21-25) mmol/L ABG Total CO2 (19-24) mmol/L ABG O2 Saturation (94-97) % Chloride (98-107) mmol/L Carbon Dioxide (22-30) mmol/L Glucose (74-99) mg/dL POC Glucose (mg/dL) 123 H (75-99) mg/dL Calcium (8.4-10.2) mg/dL AST (14-36) U/L ALT (4-34) U/L C-Reactive Protein 6.5 H (<1.0) mg/dL Total Protein (6.3-8.2) g/dL Albumin (3.5-5.0) g/dL Procalcitonin 0.39 H (0.02-0.09) ng/mL 04/30/21 04/30/21 04/30/21 Range/Units 04:05 05:23 06:04 WBC 18.5 H (3.8-10.6) k/uL MCV 104.6 H (80.0-100.0) fL MCHC 30.1 L (31.0-37.0) g/dL Neutrophils # 17.5 H (1.3-7.7) k/uL Lymphocytes # 0.5 L (1.0-4.8) k/uL ABG pH 7.33 L (7.35-7.45) ABG pCO2 93 H* (35-45) mmHg ABG HCO3 49 H* (21-25) mmol/L ABG Total CO2 52 H (19-24) mmol/L ABG O2 Saturation 98.2 H (94-97) % Chloride (98-107) mmol/L Carbon Dioxide (22-30) mmol/L Glucose (74-99) mg/dL POC Glucose (mg/dL) 165 H (75-99) mg/dL Calcium (8.4-10.2) mg/dL AST (14-36) U/L ALT (4-34) U/L C-Reactive Protein (<1.0) mg/dL Total Protein (6.3-8.2) g/dL Albumin (3.5-5.0) g/dL Procalcitonin (0.02-0.09) ng/mL 04/30/21 04/30/21 04/30/21 Range/Units 08:10 11:44 17:41 WBC (3.8-10.6) k/uL MCV (80.0-100.0) fL MCHC (31.0-37.0) g/dL Neutrophils # (1.3-7.7) k/uL Lymphocytes # (1.0-4.8) k/uL ABG pH (7.35-7.45) ABG pCO2 (35-45) mmHg ABG HCO3 (21-25) mmol/L ABG Total CO2 (19-24) mmol/L ABG O2 Saturation (94-97) % Chloride 96 L (98-107) mmol/L Carbon Dioxide 47 H* (22-30) mmol/L Glucose 139 H (74-99) mg/dL POC Glucose (mg/dL) 106 H 120 H (75-99) mg/dL Calcium 8.3 L (8.4-10.2) mg/dL AST 49 H (14-36) U/L ALT 43 H (4-34) U/L C-Reactive Protein (<1.0) mg/dL Total Protein 5.5 L (6.3-8.2) g/dL Albumin 2.3 L (3.5-5.0) g/dL Procalcitonin (0.02-0.09) ng/mL Microbiology - Last 24 Hours (Table) 04/27/21 18:30 Blood Culture Gram Stain - Preliminary Blood Blood Culture - Preliminary Staphylococcus epidermidis Assessment and Plan Assessment: 1-patient with a positive blood culture which has been finalized and staph epi likely skin contaminant vancomycin discontinued 2-acute respiratory failure which is multifactorial possible component of pneumonia patient is empirically covered with cefepime to continue while monitoring her clinical course closely Time with Patient: Less than 30
[2021-04-30 23:50] LABS: Glucose,Whole Blood 111 mg/dL (75-99)
[2021-05-01] MEDS: fentaNYL (PF) 2,500 MCG in SODIUM CHLORIDE 0.9% 200 ML IV SCH ×3 (01:11→20:35)
[2021-05-01] MEDS: ARTIFICIAL TEARS-HYPROMELLOSE DROPS 15 ML BTL BOTH EYES SCH ×5 (03:36→20:59)
[2021-05-01 04:20] LABS: Basophils % (A) 0 %; Eosinophils % (A) 0 %; HCT 35.9 % (34.0-46.0); Hypochromasia Slight; Lymphocytes # (A) 0.6 k/uL (1.0-4.8); Lymphocytes % (A) 5 %; MCH 30.6 pg (25.0-35.0); MCHC 30.6 g/dL (31.0-37.0); MCV 100.2 fL (80.0-100.0); Mean Platelet Volume 8.7; Monocytes # (A) 0.4 k/uL (0-1.0); Monocytes % (A) 3 %; Neutrophils # (A) 11.4 k/uL (1.3-7.7); Neutrophils % (A) 92 %; Platelet Count 353 k/uL (150-450); RBC 3.58 m/uL (3.80-5.40); RDW 13.3 % (11.5-15.5); WBC 12.4 k/uL (3.8-10.6)
[2021-05-01 04:35] LABS: African American GFR (CKD) >90 (>60 ml/min/1.73 sqM); Blood Urea Nitrogen 18 mg/dL (7-17); Calcium 8.5 mg/dL (8.4-10.2); Chloride 93 mmol/L (98-107); Glucose 134 mg/dL (74-99); Non-African American GFR(CKD) >90 (>60 ml/min/1.73 sqM); Potassium 4.3 mmol/L (3.5-5.1); Sodium 140 mmol/L (137-145)
[2021-05-01 04:45] LABS: Anion Gap 1 mmol/L
[2021-05-01 04:49] LABS: Carbon Dioxide 46 mmol/L (22-30)
[2021-05-01 06:00] LABS: Glucose,Whole Blood 125 mg/dL (75-99)
[2021-05-01] MEDS: INSULIN ASPART (NovoLOG) 100 UNIT/ML VIAL SQ SCH ×3 (06:06→18:09)
[2021-05-01 06:14] LABS: ABG Base Excess 23.9 mmol/L; ABG Oxygen Saturation 95.9 % (94-97); ABG PH 7.35 (7.35-7.45); ABG PO2 83 mmHg (83-108); ABG TCO2 52 mmol/L (19-24)
[2021-05-01 06:30] LABS: ABG HCO3 50 mmol/L (21-25); ABG PCO2 90 mmHg (35-45); Allen Test Performed? No
[2021-05-01] MEDS: CISATRACURIUM 200 MG in SODIUM CHLORIDE 0.9% 180 ML IV SCH ×2 (06:32→17:50)
[2021-05-01] MEDS: LEVOTHYROXINE 112 MCG TAB PO SCH (06:32)
[2021-05-01] MEDS: SODIUM CHLORIDE 0.9% 1,000 ML IV SCH (08:00)
[2021-05-01] MEDS: CEFEPIME 2 GM in SODIUM CHLORIDE 0.9% 100 ML IVPB SCH ×2 (08:16→16:28)
[2021-05-01] MEDS: ZINC SULFATE 220 MG CAP PO SCH (08:17)
[2021-05-01] MEDS: DEXAMETHASONE SOD PHOSPHATE 10 MG/ML 1 ML VIAL IVP SCH ×2 (08:17→20:59)
[2021-05-01] MEDS: ASCORBIC ACID 500 MG TAB PO SCH (08:17)
[2021-05-01] MEDS: NOREPINEPHRINE 8 MG in SODIUM CHLORIDE 0.9% 250 ML IV SCH (08:17)
[2021-05-01] MEDS: PANTOPRAZOLE 40 MG/10 ML VIAL IVP SCH (08:18)
[2021-05-01] MEDS: CHLORHEXIDINE GLUCONATE 15 ML CUP MUCOUS MEM SCH ×2 (08:18→20:59)
[2021-05-01] MEDS: CHOLECALCIFEROL 125 MCG (5000 IU) TABLET PO SCH (08:18)
[2021-05-01] MEDS: ENOXAPARIN 100 MG/ML SYRINGE SQ SCH ×2 (08:18→21:00)
--- NOTE | 2021-05-01 09:05 | XR ---
EXAMINATION TYPE: XR chest 1V DATE OF EXAM: 05/01/2021 COMPARISON: 04/30/2021 HISTORY: Shortness of breath TECHNIQUE: Single frontal view of the chest is obtained. FINDINGS: Diffuse bilateral infiltrates with small effusion. Heart size normal. ET and NG tube. Good position. No pneumothorax. Osseous structures are stable. IMPRESSION: Stable diffuse bilateral infiltrates.
[2021-05-01] MEDS: ALBUTEROL HFA INHALER INHALATION SCH ×3 (10:20→20:43)
[2021-05-01] MEDS: SYMBICORT 160-4.5 MCG INHALER INHALATION SCH ×2 (10:20→20:43)
[2021-05-01 11:50] LABS: Glucose,Whole Blood 110 mg/dL (75-99)
[2021-05-01] MEDS ORDERED: LIDOCAINE 1% INJ 10MG/ML (20 ML MDV) SQ ONE (13:12)
--- NOTE | 2021-05-01 13:52 | XR ---
EXAMINATION TYPE: XR chest 1V portable DATE OF EXAM: 05/01/2021 COMPARISON: 05/01/2021 HISTORY: PICC line placement TECHNIQUE: Single frontal view of the chest is obtained. FINDINGS: ET and NG tube seen and there are left-sided central line and right-sided PICC line both i n good position. Diffuse bilateral infiltrate and small effusion. Heart mildly enlarged. Calcific ten dinosis of the left shoulder. IMPRESSION: Diffuse bilateral infiltrate with pleural effusion stable.
--- NOTE | 2021-05-01 14:19 | P.PN ---
Subjective Progress Note Date: 05/01/21 Principal diagnosis: Acute hypoxic respiration is secondary to COVID-19 pneumonia 04/28/2021, the patient is intubated on a mechanical ventilator. Family has been updated on her condition. The patient went into respiratory failure requiring intubation mechanical ventilation. 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 The patient was intubated yesterday pH is currently on assist control mode of mechanical ventilation. She is on a tidal volume of 300 with a rate of 34 and therefore it is currently at 60% with a PEEP of 18. The patient has a airway pressure of 40 anesthetic airway pressures 38. Chest x-ray from today shows some improvement in aeration bilaterally and this could be potentially a PEEP effect. ET tube is in a good location. Orogastric tube is also in a good location. The patient has a triple lumen catheter in the left subclavian vein. The patient continues to receive treatment for Covid 19. She is on a combination of sepsis Decadron 6 mg IV every 12 hours and she is also on Lovenox and she is currently on a therapeutic dose as the CT angiogram showed a questionable filling defect in the right lower lobe pulmonary artery branch. Tympanic clinic, the patient is also covered with a combination of cefepime and Levaquin. Her pro-calcitonin level was significantly elevated. I was concerned of an underlying infection and for that reason the patient was covered with broad-spectrum antibiotics. The white cell count today is at 22.9 which is still elevated. In terms of her blood gases, the pH currently is at 7.28 with a pCO2 of 92 and pO2 of 113. The patient was developing some respiratory acidosis. I added some bicarb infusion yesterday and the bicarb infusion is running at the rate of 75 mL an hour. The serum bicarbonate currently is at 41. he is hemodynamically stable. She is on no pressors. BUN 12 with a creatinine of 0.4. The LDH level from yesterday was 2908. His CRP level was 20.0. Her d-dimer came down from 34-16.5. She was started on enteral feeding for nutritional support. She is currently on vital high protein at the rate of 30 mL an hour. The fluid balance has been +1.3 L over the past 24 hours. She is afebrile. Reevaluated today on 04/29/2021, remains in the ICU intubated and mechanically ventilated. She is on assist control rate of 34 total volume 300 FiO2 50% PEEP of 16. ABG showed a pO2 of 113 pCO2 of 83 pH of 7.39, this ABG was done on 60%, patient remains on propofol at 60 mcg/kg/m, she is on fentanyl at 2.5 mcg/kg/h, she is also on Nimbex at 3 mcg/kg/m, I cut down her IV fluid D5 W with bicarb to 25 mL per hour. Patient remains on cefepime. She does have right popliteal DVT, and she will has acute pulmonary embolism involving the right lower lobe, she is on treatment for and with anticoagulation therapy. Patient is on enteral feeding using vital HP at 31/31 mL per hour. Patient is not of norepinephrine today. Her ventilator settings remained the same, no changes were made, I plan to cut down her PEEP from 16 hopefully down to 14. Electrolytes are normal ho wever her bicarb is 45 and renal profile is normal, CBC showed leukocytosis with WBC count of 16 hemoglobin is 11.1 d-dimer remains elevated at 5.07. Chest x- ray showed no significant interval change compared to the last few days, continues to have bilateral airspace disease, groundglass opacities bilaterally. Consistent with COVID-19 pneumonia. Reevaluated today on 04/30/2021, patient remains in the ICU, intubated, sedated, mechanically ventilated, paralyzed, patient is on fentanyl at 2.5 mcg/kg/h propofol at 60 mcg/kg/m Nimbex at 1.5 mcg/kg/m, she is also on bicarb drip at 25 mL per hour. Vent settings are assist control rate of 34 tidal volume 300 FiO2 60% PEEP is 16. ABG showed a pO2 of 103 pCO2 of 93 pH of 7.33 hence I cut down her FiO2 down to 50%, and advised nursing to monitor O2 saturation, and titrate the FiO2 accordingly maintaining an O2 saturation above 91%. Electrolytes are normal renal profile is normal pro-calcitonin is 0.39, slightly elevated. Blood cultures showed staph epidermidis, hence vancomycin was discontinued, and the patient remains on cefepime. Patient continues to have relatively high peak airway pressure of 57, plateau pressure is 34. Consistent with a mid 19 pneumonia and ARDS. Patient was reevaluated today on 05/01/2021, patient remains in the ICU, intubated and mechanically ventilated. She is on assist control rate of 34 tidal volume 300 FiO2 50% PEEP of 16. ABG showed a pO2 of 83 pCO2 of 90 pH of 7.35, hence I'm cutting down the PEEP from 16-14. Patient remains on tube feeding using vital HP at 31 mL per hour./goal. She is on fentanyl at 2.5 mcg/kg/hr,propofol 60 mcg/kg/m, Nimbex at 2.5 mcg/kg/m. Patient was actually intubated on 04/26, her peak airway pressure is 36 plateau pressure is 34. His ARDS. However I will try a lower PEEP today, and would consider even stopping Nimbex somewhere along the line if the patient tolerates lower PEEP. WBC count is 12.4 hemoglobin is 11, electrolytes are normal except for bicarb of 46 BUN of 18 and creatinine 0.47. Chest x-ray continues to show diffuse bilateral infiltrates with small pleural effusions. Objective - Vital Signs Vital signs: Vital Signs Temp 98 F 05/01/21 12:00 Pulse 75 05/01/21 12:00 Resp 34 H 05/01/21 12:00 BP 106/65 05/01/21 06:00 Pulse Ox 97 05/01/21 12:00 Intake & Output 04/30/21 05/01/21 05/01/21 18:59 06:59 18:59 Intake Total 2070.165 1071.440 7516 Output Total 1035 595 465 Balance 4414.445 2239.519 589 Weight 114.5 kg 114.8 kg Intake: IV 576 276 238 Cefepime 2 gm In Sodium 200 100 Chloride 0.9% 100 ml @ 25 mls/hr IVPB Q8HR [facility] Rx# :[id number] Levofloxacin 500Mg-D5w 100 Pmx 500 mg In Dextrose/ Water 1 100ml.bag @ 100 mls/hr IVPB Q24H [facility] Rx#: [id number] Pressure Bag 36 36 18 Sodium Chloride 0.9% 1, 240 240 120 000 ml @ 20 mls/hr IV . Q24H [facility] Rx#:[id number] Intake, IV Titration 123.375 6882.519 500 Amount Cisatracurium 200 mg In 157.165 200 Sodium Chloride 0.9% 180 ml @ 1 MCG/KG/MIN 6.26 mls/hr IV .Q24H [facility] Rx#: [id number] Dextrose 5% in Water 1, 275 300 150 000 ml @ 25 mls/hr IV . Q24H [facility] with Sodium Bicarb (1 Meq/ml) 150 ml Rx#:[id number] Norepinephrine 8 mg In 0 Sodium Chloride 0.9% 250 ml @ 0.05 MCG/KG/MIN 10. 094 mls/hr IV .Q24H [facility] Rx#:[id number] fentaNYL (PF) 2,500 mcg 250 237.965 250 In Sodium Chloride 0.9% 200 ml @ 0.5 MCG/KG/HR 5. 23 mls/hr IV .Q24H [facility] Rx #:[id number] propofoL 1,000 mg In 300 297.554 100 Empty Bag 1 bag @ Titrate IV .Q0M [facility] Rx#: [id number] Tube Feeding 372 341 186 Other 140 90 130 Output: Urine 1035 595 465 Other: Voiding Method Indwelling Catheter Indwelling Catheter Indwelling Catheter ABP, PAP, CO, CI - Last Documented Arterial Blood Pressure 131/66 - Exam Physical Exam revealed a 46-year-old -[place] female, intubated, mechanically ventilated, sedated and paralyzed. Head: Atraumatic, normocephalic, orogastric tube and endotracheal tube are intact. HEENT:[Neck is supple.] [No neck masses.] [No thyromegaly.] [No JVD.] Left subclavian triple-lumen catheter is noted. No adenopathy is appreciated. Chest: [Fine crackles at the bases symmetrical chest expansion. Cardiac Exam: [Normal S1 and S2, no S3 gallop, no murmur.] Abdomen: [Soft, nontender, no megaly, no rebound, no guarding, normal bowel sounds.] Extremities: [No clubbing, no edema, no cyanosis.] Good pulses bilaterally. Neurological Exam: Patient is sedated and paralyzed, could not assess neurological status. Psychiatric: Could not assess - Labs CBC & Chem 7: 05/01/21 03:50 05/01/21 03:50 Labs: Abnormal Lab Results - Last 24 Hours (Table) 04/30/21 04/30/21 04/30/21 Range/Units 04:05 17:41 23:48 WBC 18.5 H (3.8-10.6) k/uL RBC (3.80-5.40) m/uL Hgb (11.4-16.0) gm/dL MCV 104.6 H (80.0-100.0) fL MCHC 30.1 L (31.0-37.0) g/dL Neutrophils # 17.5 H (1.3-7.7) k/uL Lymphocytes # 0.5 L (1.0-4.8) k/uL ABG pCO2 (35-45) mmHg ABG HCO3 (21-25) mmol/L ABG Total CO2 (19-24) mmol/L Chloride (98-107) mmol/L Carbon Dioxide (22-30) mmol/L BUN (7-17) mg/dL Creatinine (0.52-1.04) mg/dL Glucose (74-99) mg/dL POC Glucose (mg/dL) 120 H 111 H (75-99) mg/dL 05/01/21 05/01/21 05/01/21 Range/Units 03:50 03:50 05:48 WBC 12.4 H (3.8-10.6) k/uL RBC 3.58 L (3.80-5.40) m/uL Hgb 11.0 L (11.4-16.0) gm/dL MCV 100.2 H (80.0-100.0) fL MCHC 30.6 L (31.0-37.0) g/dL Neutrophils # 11.4 H (1.3-7.7) k/uL Lymphocytes # 0.6 L (1.0-4.8) k/uL ABG pCO2 90 H* (35-45) mmHg ABG HCO3 50 H* (21-25) mmol/L ABG Total CO2 52 H (19-24) mmol/L Chloride 93 L (98-107) mmol/L Carbon Dioxide 46 H* (22-30) mmol/L BUN 18 H (7-17) mg/dL Creatinine 0.47 L (0.52-1.04) mg/dL Glucose 134 H (74-99) mg/dL POC Glucose (mg/dL) (75-99) mg/dL 05/01/21 05/01/21 Range/Units 05:58 11:48 WBC (3.8-10.6) k/uL RBC (3.80-5.40) m/uL Hgb (11.4-16.0) gm/dL MCV (80.0-100.0) fL MCHC (31.0-37.0) g/dL Neutrophils # (1.3-7.7) k/uL Lymphocytes # (1.0-4.8) k/uL ABG pCO2 (35-45) mmHg ABG HCO3 (21-25) mmol/L ABG Total CO2 (19-24) mmol/L Chloride (98-107) mmol/L Carbon Dioxide (22-30) mmol/L BUN (7-17) mg/dL Creatinine (0.52-1.04) mg/dL Glucose (74-99) mg/dL POC Glucose (mg/dL) 125 H 110 H (75-99) mg/dL Microbiology - Last 24 Hours (Table) 04/27/21 18:30 Blood Culture Gram Stain - Final Blood Blood Culture - Final Staphylococcus epidermidis 04/30/21 08:10 Blood Culture - Preliminary Blood No Growth after 24 hours Assessment and Plan Assessment: Impression: Acute hypoxic respiratory failure secondary to COVID-19 pneumonia, patient is not vaccinated. Diagnosed initially on 04/13/2021, hospitalized and discharged home on 04/18, readmitted and intubated on 04/27/2021, remains intubated and mechanically ventilated. Initially placed on Baricitinib which was discontinued because of concern of infection and elevated pro calcitonin. Patient is on therapeutic Lovenox because of abnormal venous Doppler and abnormal CT angiogram of the chest. Acute right lower lobe pulmonary embolism Acute respiratory acidosis History of hypothyroidism History of marijuana smoking Recommendation: Arrange for PICC line placement and eventually discontinue the central line. Comes early next week, may consider tracheostomy and PEG tube in this patient, but at this point I'm hoping we can still potentially wean and extubate if the patient continues to improve and continues to tolerate lower PEEP. Continue ventilatory support, titrate oxygen down maintaining O2 saturation of 91%. Cutdown PEEP to 14 if possible. Keep FiO2 at 50%. Continue anticoagulation therapy. Continue sedation and paralysis Continue permissive hypercapnia Continue bicarb at 25 mL per hour. Continue Levaquin and cefepime Continue COVID-19 cocktail. Continue therapeutic doses of Lovenox. Continue to monitor daily x-rays and daily inflammatory markers. Continue enteral feeding , patient is on vital HP 31 mL/h/oh Continue GI and DVT prophylaxis Patient remains critically ill. We will continue to follow, Critical care time is over 30 minutes. Time with Patient: Greater than 30
--- NOTE | 2021-05-01 14:43 | IR ---
PICC LINE PLACEMENT: HISTORY: Infection requiring long-term antibiotic therapy PROCEDURE: Ultrasound guidance of PICC line placement. COMPLICATIONS: None ANESTHESIA: 1. 1% Lidocaine locally. FINDINGS/TECHNIQUE: The procedure was explained to the patient. The risks, complications, benefits and alternatives were discussed and any questions were answered. Informed consent was obtained. The patient was placed supine on the fluoroscopic table and prepped and draped in the usual sterile fash ion. Utilizing a 21 gauge needle and sonographic guidance, access in the right basilic vein was ach ieved and there is placement of a 0.018 guidewire. The vein is patent. A 5-F. sheath was placed ove r the guidewire. The guidewire and dilator were removed and a 5-F. Double lumen PICC line was placed through the sheath with the chest x-ray confirming the tip at the level of the SVC. The sheath was removed, the catheter was flushed and sutured into position. The patient was stable throughout the p rocedure and remained stable upon discharge from the Department of Radiology. The vein puncture was patent under ultrasound. A reeves scale image was obtained to document patency of the vein punctured. All elements of the maximal barrier technique were utilized. IMPRESSION: 1. Successful PICC line placement under ultrasound performed bedside within the ICU.
[2021-05-01] MEDS: LEVOFLOXACIN 500MG-D5W PMX 500 MG in DEXTROSE/WATER 1 100ML.BAG IVPB SCH (15:05)
[2021-05-01 17:58] LABS: Glucose,Whole Blood 115 mg/dL (75-99)
--- NOTE | 2021-05-01 21:11 | P.PN ---
Subjective Progress Note Date: 05/01/21 Principal diagnosis: Pneumonia and bacteremia Interval history : Patient is a 46-year-old -[place] female with admission diagnoses: Acute COVID-19 pneumonia subsequently admission to the hospital with worsening respiratory status has been diagnosed with a DVT and PE. On today's evaluation that is 05/01/2021, The patient continues to be afebrile, the patient is hemodynamically stable not requiring any pressor support FiO2 is currently stable at 50% no significant purulent secretion through the ET diarrhea or any other changes reported by nursing staff Objective - Vital Signs Vital signs: Vital Signs Temp 98.3 F 05/01/21 16:00 Pulse 66 05/01/21 19:00 Resp 34 H 05/01/21 19:00 BP 106/65 05/01/21 06:00 Pulse Ox 96 05/01/21 19:00 Intake & Output 05/01/21 05/01/21 05/02/21 06:59 18:59 06:59 Intake Total 8619.559 4101.213 298.067 Output Total 595 1290 200 Balance 1147.519 775.213 98.067 Weight 114.8 kg Intake: IV 276 576 23 Cefepime 2 gm In Sodium 200 Chloride 0.9% 100 ml @ 25 mls/hr IVPB Q8HR [facility] Rx# :[id number] Levofloxacin 500Mg-D5w 100 Pmx 500 mg In Dextrose/ Water 1 100ml.bag @ 100 mls/hr IVPB Q24H [facility] Rx#: [id number] Pressure Bag 36 36 3 Sodium Chloride 0.9% 1, 240 240 20 000 ml @ 20 mls/hr IV . Q24H [facility] Rx#:[id number] Intake, IV Titration 1035.519 957.213 244.067 Amount Cisatracurium 200 mg In 200 176.834 Sodium Chloride 0.9% 180 ml @ 1 MCG/KG/MIN 6.26 mls/hr IV .Q24H [facility] Rx#: [id number] Dextrose 5% in Water 1, 300 250 000 ml @ 25 mls/hr IV . Q24H [facility] with Sodium Bicarb (1 Meq/ml) 150 ml Rx#:[id number] fentaNYL (PF) 2,500 mcg 237.965 250 244.067 In Sodium Chloride 0.9% 200 ml @ 0.5 MCG/KG/HR 5. 23 mls/hr IV .Q24H [facility] Rx #:[id number] propofoL 1,000 mg In 297.554 280.379 Empty Bag 1 bag @ Titrate IV .Q0M [facility] Rx#: [id number] Tube Feeding 341 372 31 Other 90 160 Output: Urine 595 1290 200 Other: Voiding Method Indwelling Catheter Indwelling Catheter ABP, PAP, CO, CI - Last Documented Arterial Blood Pressure 130/62 - Exam GENERAL DESCRIPTION: Middle-aged female intubated on the vent RESPIRATORY SYSTEM: Unlabored breathing , decreased breath sounds at bases HEART: S1 S2 regular rate and rhythm ,no loud murmurs ABDOMEN: Soft , no tenderness EXTREMITIES: No edema feet - Labs CBC & Chem 7: 05/01/21 03:50 05/01/21 03:50 Labs: Abnormal Lab Results - Last 24 Hours (Table) 04/30/21 05/01/21 05/01/21 Range/Units 23:48 03:50 03:50 WBC 12.4 H (3.8-10.6) k/uL RBC 3.58 L (3.80-5.40) m/uL Hgb 11.0 L (11.4-16.0) gm/dL MCV 100.2 H (80.0-100.0) fL MCHC 30.6 L (31.0-37.0) g/dL Neutrophils # 11.4 H (1.3-7.7) k/uL Lymphocytes # 0.6 L (1.0-4.8) k/uL ABG pCO2 (35-45) mmHg ABG HCO3 (21-25) mmol/L ABG Total CO2 (19-24) mmol/L Chloride 93 L (98-107) mmol/L Carbon Dioxide 46 H* (22-30) mmol/L BUN 18 H (7-17) mg/dL Creatinine 0.47 L (0.52-1.04) mg/dL Glucose 134 H (74-99) mg/dL POC Glucose (mg/dL) 111 H (75-99) mg/dL 05/01/21 05/01/21 05/01/21 Range/Units 05:48 05:58 11:48 WBC (3.8-10.6) k/uL RBC (3.80-5.40) m/uL Hgb (11.4-16.0) gm/dL MCV (80.0-100.0) fL MCHC (31.0-37.0) g/dL Neutrophils # (1.3-7.7) k/uL Lymphocytes # (1.0-4.8) k/uL ABG pCO2 90 H* (35-45) mmHg ABG HCO3 50 H* (21-25) mmol/L ABG Total CO2 52 H (19-24) mmol/L Chloride (98-107) mmol/L Carbon Dioxide (22-30) mmol/L BUN (7-17) mg/dL Creatinine (0.52-1.04) mg/dL Glucose (74-99) mg/dL POC Glucose (mg/dL) 125 H 110 H (75-99) mg/dL 05/01/21 Range/Units 17:57 WBC (3.8-10.6) k/uL RBC (3.80-5.40) m/uL Hgb (11.4-16.0) gm/dL MCV (80.0-100.0) fL MCHC (31.0-37.0) g/dL Neutrophils # (1.3-7.7) k/uL Lymphocytes # (1.0-4.8) k/uL ABG pCO2 (35-45) mmHg ABG HCO3 (21-25) mmol/L ABG Total CO2 (19-24) mmol/L Chloride (98-107) mmol/L Carbon Dioxide (22-30) mmol/L BUN (7-17) mg/dL Creatinine (0.52-1.04) mg/dL Glucose (74-99) mg/dL POC Glucose (mg/dL) 115 H (75-99) mg/dL Microbiology - Last 24 Hours (Table) 04/27/21 18:30 Blood Culture Gram Stain - Final Blood Blood Culture - Final Staphylococcus epidermidis 04/30/21 08:10 Blood Culture - Preliminary Blood No Growth after 24 hours Assessment and Plan Assessment: 1-patient with a positive blood culture which has been finalized and staph epi likely skin contaminant vancomycin discontinued, Repeat blood culture has been negative so far 2-acute respiratory failure which is multifactorial possible component of pneumonia, Sputum has been usual respiratory pat White count is trending down down to 12.4, patient is empirically covered with cefepime to continue while monitoring her clinical course closely Time with Patient: Less than 30
[2021-05-01 23:38] LABS: Glucose,Whole Blood 99 mg/dL (75-99)
[2021-05-02] MEDS: DEXTROSE 5% IN WATER 1,000 ML with SODIUM BICARB (1 MEQ/ML) 150 ML IV SCH (00:35)
[2021-05-02] MEDS: CEFEPIME 2 GM in SODIUM CHLORIDE 0.9% 100 ML IVPB SCH ×3 (00:36→15:58)
[2021-05-02] MEDS: INSULIN ASPART (NovoLOG) 100 UNIT/ML VIAL SQ SCH ×4 (00:37→18:25)
[2021-05-02] MEDS: ARTIFICIAL TEARS-HYPROMELLOSE DROPS 15 ML BTL BOTH EYES SCH ×6 (00:38→20:43)
[2021-05-02 05:27] LABS: African American GFR (CKD) >90 (>60 ml/min/1.73 sqM); Blood Urea Nitrogen 18 mg/dL (7-17); Calcium 8.6 mg/dL (8.4-10.2); Chloride 96 mmol/L (98-107); Glucose 117 mg/dL (74-99); Non-African American GFR(CKD) >90 (>60 ml/min/1.73 sqM); Potassium 4.4 mmol/L (3.5-5.1); Sodium 138 mmol/L (137-145)
[2021-05-02 05:35] LABS: Anion Gap 1 mmol/L; Basophils % (A) 0 %; Eosinophils % (A) 0 %; HCT 33.4 % (34.0-46.0); HGB 10.6 gm/dL (11.4-16.0); Hypochromasia Slight; Lymphocytes # (A) 0.6 k/uL (1.0-4.8); Lymphocytes % (A) 7 %; MCH 31.3 pg (25.0-35.0); MCHC 31.7 g/dL (31.0-37.0); MCV 98.9 fL (80.0-100.0); Mean Platelet Volume 8.6; Monocytes # (A) 0.4 k/uL (0-1.0); Monocytes % (A) 5 %; Neutrophils # (A) 7.2 k/uL (1.3-7.7); Neutrophils % (A) 86 %; Platelet Count 364 k/uL (150-450); RBC 3.38 m/uL (3.80-5.40); RDW 13.2 % (11.5-15.5); WBC 8.4 k/uL (3.8-10.6)
[2021-05-02] MEDS: LEVOTHYROXINE 112 MCG TAB PO SCH (05:52)
[2021-05-02 06:00] LABS: Carbon Dioxide 41 mmol/L (22-30)
[2021-05-02 06:06] LABS: ABG Base Excess 21.8 mmol/L; ABG Oxygen Saturation 97.7 % (94-97); ABG PCO2 69 mmHg (35-45); ABG PH 7.44 (7.35-7.45); ABG PO2 92 mmHg (83-108); ABG TCO2 48 mmol/L (19-24); Allen Test Performed? Yes
[2021-05-02 06:09] LABS: ABG HCO3 46 mmol/L (21-25)
[2021-05-02] MEDS: fentaNYL (PF) 2,500 MCG in SODIUM CHLORIDE 0.9% 200 ML IV SCH ×3 (06:10→23:36)
[2021-05-02] MEDS: CISATRACURIUM 200 MG in SODIUM CHLORIDE 0.9% 180 ML IV SCH (06:14)
[2021-05-02] MEDS: SYMBICORT 160-4.5 MCG INHALER INHALATION SCH ×2 (08:08→20:07)
[2021-05-02] MEDS: ALBUTEROL HFA INHALER INHALATION SCH ×4 (08:08→20:07)
[2021-05-02] MEDS: NOREPINEPHRINE 8 MG in SODIUM CHLORIDE 0.9% 250 ML IV SCH (08:18)
[2021-05-02] MEDS: ASCORBIC ACID 500 MG TAB PO SCH (08:19)
[2021-05-02] MEDS: PANTOPRAZOLE 40 MG/10 ML VIAL IVP SCH (08:20)
[2021-05-02] MEDS: CHLORHEXIDINE GLUCONATE 15 ML CUP MUCOUS MEM SCH ×2 (08:20→20:43)
[2021-05-02] MEDS: CHOLECALCIFEROL 125 MCG (5000 IU) TABLET PO SCH (08:20)
[2021-05-02] MEDS: ZINC SULFATE 220 MG CAP PO SCH (08:20)
[2021-05-02] MEDS: DEXAMETHASONE SOD PHOSPHATE 10 MG/ML 1 ML VIAL IVP SCH ×2 (08:20→20:43)
[2021-05-02] MEDS: ENOXAPARIN 100 MG/ML SYRINGE SQ SCH ×2 (08:20→20:42)
--- NOTE | 2021-05-02 09:15 | XR ---
EXAMINATION TYPE: XR chest 1V DATE OF EXAM: 05/02/2021 COMPARISON: Chest x-ray 05/01/2021 HISTORY: Intubated, Covid pneumonia TECHNIQUE: Single frontal view of the chest is obtained. FINDINGS: Endotracheal tube, NG tube, left-sided subclavian central venous catheter, right-sided PIC C line are overlying appropriate positions, side-port of the NG tube may be cephalad to the level of the gastroesophageal junction however. Bilateral airspace disease is present as on prior exam. The he midiaphragms obscured appearance of the right, partially obscured on the left. No evident pneumothora x. There are overlying artifacts. IMPRESSION: Findings are consistent with Covid pneumonia. NG tube as described.
[2021-05-02 11:38] LABS: Glucose,Whole Blood 109 mg/dL (75-99)
[2021-05-02] MEDS: SODIUM CHLORIDE 0.9% 500 ML 500 ML IV SCH (11:45)
--- NOTE | 2021-05-02 13:17 | P.PN ---
Subjective Progress Note Date: 05/02/21 Principal diagnosis: Acute hypoxic respiration is secondary to COVID-19 pneumonia 04/28/2021, the patient is intubated on a mechanical ventilator. Family has been updated on her condition. The patient went into respiratory failure requiring intubation mechanical ventilation. 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 The patient was intubated yesterday pH is currently on assist control mode of mechanical ventilation. She is on a tidal volume of 300 with a rate of 34 and therefore it is currently at 60% with a PEEP of 18. The patient has a airway pressure of 40 anesthetic airway pressures 38. Chest x-ray from today shows some improvement in aeration bilaterally and this could be potentially a PEEP effect. ET tube is in a good location. Orogastric tube is also in a good location. The patient has a triple lumen catheter in the left subclavian vein. The patient continues to receive treatment for Covid 19. She is on a combination of sepsis Decadron 6 mg IV every 12 hours and she is also on Lovenox and she is currently on a therapeutic dose as the CT angiogram showed a questionable filling defect in the right lower lobe pulmonary artery branch. Tympanic clinic, the patient is also covered with a combination of cefepime and Levaquin. Her pro-calcitonin level was significantly elevated. I was concerned of an underlying infection and for that reason the patient was covered with broad-spectrum antibiotics. The white cell count today is at 22.9 which is still elevated. In terms of her blood gases, the pH currently is at 7.28 with a pCO2 of 92 and pO2 of 113. The patient was developing some respiratory acidosis. I added some bicarb infusion yesterday and the bicarb infusion is running at the rate of 75 mL an hour. The serum bicarbonate currently is at 41. he is hemodynamically stable. She is on no pressors. BUN 12 with a creatinine of 0.4. The LDH level from yesterday was 2908. His CRP level was 20.0. Her d-dimer came down from 34-16.5. She was started on enteral feeding for nutritional support. She is currently on vital high protein at the rate of 30 mL an hour. The fluid balance has been +1.3 L over the past 24 hours. She is afebrile. Reevaluated today on 04/29/2021, remains in the ICU intubated and mechanically ventilated. She is on assist control rate of 34 total volume 300 FiO2 50% PEEP of 16. ABG showed a pO2 of 113 pCO2 of 83 pH of 7.39, this ABG was done on 60%, patient remains on propofol at 60 mcg/kg/m, she is on fentanyl at 2.5 mcg/kg/h, she is also on Nimbex at 3 mcg/kg/m, I cut down her IV fluid D5 W with bicarb to 25 mL per hour. Patient remains on cefepime. She does have right popliteal DVT, and she will has acute pulmonary embolism involving the right lower lobe, she is on treatment for and with anticoagulation therapy. Patient is on enteral feeding using vital HP at 31/31 mL per hour. Patient is not of norepinephrine today. Her ventilator settings remained the same, no changes were made, I plan to cut down her PEEP from 16 hopefully down to 14. Electrolytes are normal ho wever her bicarb is 45 and renal profile is normal, CBC showed leukocytosis with WBC count of 16 hemoglobin is 11.1 d-dimer remains elevated at 5.07. Chest x- ray showed no significant interval change compared to the last few days, continues to have bilateral airspace disease, groundglass opacities bilaterally. Consistent with COVID-19 pneumonia. Reevaluated today on 04/30/2021, patient remains in the ICU, intubated, sedated, mechanically ventilated, paralyzed, patient is on fentanyl at 2.5 mcg/kg/h propofol at 60 mcg/kg/m Nimbex at 1.5 mcg/kg/m, she is also on bicarb drip at 25 mL per hour. Vent settings are assist control rate of 34 tidal volume 300 FiO2 60% PEEP is 16. ABG showed a pO2 of 103 pCO2 of 93 pH of 7.33 hence I cut down her FiO2 down to 50%, and advised nursing to monitor O2 saturation, and titrate the FiO2 accordingly maintaining an O2 saturation above 91%. Electrolytes are normal renal profile is normal pro-calcitonin is 0.39, slightly elevated. Blood cultures showed staph epidermidis, hence vancomycin was discontinued, and the patient remains on cefepime. Patient continues to have relatively high peak airway pressure of 57, plateau pressure is 34. Consistent with a mid 19 pneumonia and ARDS. Patient was reevaluated today on 05/01/2021, patient remains in the ICU, intubated and mechanically ventilated. She is on assist control rate of 34 tidal volume 300 FiO2 50% PEEP of 16. ABG showed a pO2 of 83 pCO2 of 90 pH of 7.35, hence I'm cutting down the PEEP from 16-14. Patient remains on tube feeding using vital HP at 31 mL per hour./goal. She is on fentanyl at 2.5 mcg/kg/hr,propofol 60 mcg/kg/m, Nimbex at 2.5 mcg/kg/m. Patient was actually intubated on 04/26, her peak airway pressure is 36 plateau pressure is 34. His ARDS. However I will try a lower PEEP today, and would consider even stopping Nimbex somewhere along the line if the patient tolerates lower PEEP. WBC count is 12.4 hemoglobin is 11, electrolytes are normal except for bicarb of 46 BUN of 18 and creatinine 0.47. Chest x-ray continues to show diffuse bilateral infiltrates with small pleural effusions. Patient was reevaluated today on 05/02/21, remains in the ICU, intubated and mechanically ventilated. Patient is presently on assist control rate of 34 tidal volume 300 FiO2 50% and PEEP was 12 and I cut it down to 10. Her ABG today showed a pO2 of 92 pCO2 of 69 pH of 7.44, patient is on bicarb drip which I have discontinued today. Remains on Nimbex which I have discontinued today, she is also on propofol at 60 mcg/kg/m, fentanyl 25 mcg/kg/h, and I have recommended that they stay at the same dose, but definitely cut down and discontinue Nimbex. Patient is on enteral feeding using vital HP at 3 1 mL per hour which is the goal. Patient is also noted to have relatively normal CBC, WBC count is 8.4 hemoglobin is 10.6. Chest x-ray is continues to show lateral infiltrates consistent with COVID-19 pneumonia, not much warp changer the last few days Objective - Vital Signs Vital signs: Vital Signs Temp 97.4 F L 05/02/21 08:00 Pulse 82 05/02/21 10:00 Resp 34 H 05/02/21 10:00 BP 106/65 05/02/21 02:00 Pulse Ox 96 05/02/21 10:00 Intake & Output 05/01/21 05/02/21 05/02/21 18:59 06:59 18:59 Intake Total 2065.213 1436.115 747.204 Output Total 1290 1385 220 Balance 775.213 51.115 527.204 Weight 114.2 kg Intake: IV 576 276 192 Cefepime 2 gm In Sodium 200 100 Chloride 0.9% 100 ml @ 25 mls/hr IVPB Q8HR [facility] Rx# :[id number] Levofloxacin 500Mg-D5w 100 Pmx 500 mg In Dextrose/ Water 1 100ml.bag @ 100 mls/hr IVPB Q24H [facility] Rx#: [id number] Pressure Bag 36 36 12 Sodium Chloride 0.9% 1, 240 240 80 000 ml @ 20 mls/hr IV . Q24H [facility] Rx#:[id number] Intake, IV Titration 957.213 788.115 341.204 Amount Cisatracurium 200 mg In 176.834 194.048 74.594 Sodium Chloride 0.9% 180 ml @ 1 MCG/KG/MIN 6.26 mls/hr IV .Q24H [facility] Rx#: [id number] Dextrose 5% in Water 1, 250 75 000 ml @ 25 mls/hr IV . Q24H [facility] with Sodium Bicarb (1 Meq/ml) 150 ml Rx#:[id number] fentaNYL (PF) 2,500 mcg 250 494.067 In Sodium Chloride 0.9% 200 ml @ 0.5 MCG/KG/HR 5. 23 mls/hr IV .Q24H [facility] Rx #:[id number] propofoL 1,000 mg In 280.379 100 191.61 Empty Bag 1 bag @ Titrate IV .Q0M [facility] Rx#: [id number] Tube Feeding 372 372 124 Other 160 90 Output: Urine 1290 1385 220 Other: Voiding Method Indwelling Catheter Indwelling Catheter Indwelling Catheter ABP, PAP, CO, CI - Last Documented Arterial Blood Pressure 125/54 - Exam Physical Exam revealed a 46-year-old -[place] female, intubated, mechan ically ventilated, sedated and paralyzed. Head: Atraumatic, normocephalic, orogastric tube and endotracheal tube are intact. HEENT:[Neck is supple.] [No neck masses.] [No thyromegaly.] [No JVD.] Left subclavian triple-lumen catheter is noted. No adenopathy is appreciated. Chest: [Fine crackles at the bases symmetrical chest expansion. Cardiac Exam: [Normal S1 and S2, no S3 gallop, no murmur.] Abdomen: [Soft, nontender, no megaly, no rebound, no guarding, normal bowel sounds.] Extremities: [No clubbing, no edema, no cyanosis.] Good pulses bilaterally. Neurological Exam: Patient is sedated and paralyzed, could not assess neurological status. Psychiatric: Could not assess - Labs CBC & Chem 7: 05/02/21 04:20 05/02/21 04:20 Labs: Abnormal Lab Results - Last 24 Hours (Table) 05/01/21 05/02/21 05/02/21 Range/Units 17:57 04:20 04:20 RBC 3.38 L (3.80-5.40) m/uL Hgb 10.6 L (11.4-16.0) gm/dL Hct 33.4 L (34.0-46.0) % Lymphocytes # 0.6 L (1.0-4.8) k/uL ABG pCO2 (35-45) mmHg ABG HCO3 (21-25) mmol/L ABG Total CO2 (19-24) mmol/L ABG O2 Saturation (94-97) % Chloride 96 L (98-107) mmol/L Carbon Dioxide 41 H* (22-30) mmol/L BUN 18 H (7-17) mg/dL Creatinine 0.46 L (0.52-1.04) mg/dL Glucose 117 H (74-99) mg/dL POC Glucose (mg/dL) 115 H (75-99) mg/dL 05/02/21 05/02/21 Range/Units 06:00 11:35 RBC (3.80-5.40) m/uL Hgb (11.4-16.0) gm/dL Hct (34.0-46.0) % Lymphocytes # (1.0-4.8) k/uL ABG pCO2 69 H (35-45) mmHg ABG HCO3 46 H* (21-25) mmol/L ABG Total CO2 48 H (19-24) mmol/L ABG O2 Saturation 97.7 H (94-97) % Chloride (98-107) mmol/L Carbon Dioxide (22-30) mmol/L BUN (7-17) mg/dL Creatinine (0.52-1.04) mg/dL Glucose (74-99) mg/dL POC Glucose (mg/dL) 109 H (75-99) mg/dL Microbiology - Last 24 Hours (Table) 04/30/21 08:10 Blood Culture - Preliminary Blood No Growth after 48 hours 04/27/21 18:30 Blood Culture Gram Stain - Final Blood Blood Culture - Final Staphylococcus epidermidis Assessment and Plan Assessment: Impression: Acute hypoxic respiratory failure secondary to COVID-19 pneumonia, patient is not vaccinated. Diagnosed initially on 04/13/2021, hospitalized and discharged home on 04/18, readmitted and intubated on 04/27/2021, remains intubated and mechanically ventilated. Initially placed on Baricitinib which was discontinued because of concern of infection and elevated pro calcitonin. Patient is on therapeutic Lovenox because of abnormal venous Doppler and abnormal CT angiogram of the chest. Acute right lower lobe pulmonary embolism Acute respiratory acidosis History of hypothyroidism History of marijuana smoking Recommendation: Discontinue Nimbex, however continue propofol and fentanyl, eventually taper and assess mental status. Patient should do fairly well off Nimbex hopefully today. Not quite ready for weaning at this point, however we could potentially address weaning mode of mechanical ventilation that is pressure support and IMV mode if the patient tolerates coming off Nimbex, propofol, and fentanyl. Continue ventilatory support Continue anticoagulation therapy. Discontinue bicarb. Continue Levaquin and cefepime Continue COVID-19 cocktail. Continue therapeutic doses of Lovenox. Continue to monitor daily x-rays and daily inflammatory markers. Continue enteral feeding , patient is on vital HP 31 mL/h/oh Continue GI and DVT prophylaxis Patient remains critically ill. Critical care time is over 30 minutes. We'll continue to follow while in ICU. Time with Patient: Greater than 30
[2021-05-02] MEDS: LEVOFLOXACIN 500MG-D5W PMX 500 MG in DEXTROSE/WATER 1 100ML.BAG IVPB SCH (15:59)
[2021-05-02 17:48] LABS: Glucose,Whole Blood 104 mg/dL (75-99)
--- NOTE | 2021-05-02 22:57 | XR ---
EXAMINATION TYPE: XR chest 1V portable DATE OF EXAM: 05/02/2021 COMPARISON: Today HISTORY: Respiratory failure TECHNIQUE: Single view FINDINGS: The endotracheal tube is 5 cm from the malini. There is pulmonary airspace edema. There is right subclavian catheter with tip in the top of the right atrium. There is nasogastric tube in the s tomach. There are chest leads. IMPRESSION: Pulmonary edema and right pleural effusion without significant change compared to exam th is morning.
[2021-05-03 00:25] LABS: Glucose,Whole Blood 90 mg/dL (75-99)
[2021-05-03] MEDS: INSULIN ASPART (NovoLOG) 100 UNIT/ML VIAL SQ SCH ×4 (00:48→18:16)
[2021-05-03] MEDS: ARTIFICIAL TEARS-HYPROMELLOSE DROPS 15 ML BTL BOTH EYES SCH ×6 (00:48→20:22)
[2021-05-03] MEDS: CEFEPIME 2 GM in SODIUM CHLORIDE 0.9% 100 ML IVPB SCH ×3 (00:49→17:14)
[2021-05-03 05:18] LABS: ABG Base Excess 18.3 mmol/L; ABG Oxygen Saturation 96.8 % (94-97); ABG PCO2 62 mmHg (35-45); ABG PH 7.44 (7.35-7.45); ABG PO2 85 mmHg (83-108); ABG TCO2 44 mmol/L (19-24); Allen Test Performed? Yes
[2021-05-03 05:41] LABS: Basophils % (A) 0 %; Eosinophils % (A) 0 %; HCT 34.8 % (34.0-46.0); HGB 10.6 gm/dL (11.4-16.0); Hypochromasia Slight; Lymphocytes # (A) 0.6 k/uL (1.0-4.8); Lymphocytes % (A) 7 %; MCH 30.4 pg (25.0-35.0); MCHC 30.5 g/dL (31.0-37.0); MCV 99.8 fL (80.0-100.0); Mean Platelet Volume 8.7; Monocytes # (A) 0.4 k/uL (0-1.0); Monocytes % (A) 4 %; Neutrophils # (A) 7.8 k/uL (1.3-7.7); Neutrophils % (A) 87 %; Platelet Count 412 k/uL (150-450); RBC 3.48 m/uL (3.80-5.40); RDW 13.8 % (11.5-15.5); WBC 8.9 k/uL (3.8-10.6)
[2021-05-03 05:53] LABS: African American GFR (CKD) >90 (>60 ml/min/1.73 sqM); Blood Urea Nitrogen 19 mg/dL (7-17); Calcium 8.5 mg/dL (8.4-10.2); Chloride 97 mmol/L (98-107); Glucose 110 mg/dL (74-99); Non-African American GFR(CKD) >90 (>60 ml/min/1.73 sqM); Potassium 4.4 mmol/L (3.5-5.1); Sodium 139 mmol/L (137-145)
[2021-05-03 05:59] LABS: Anion Gap 1 mmol/L
[2021-05-03 06:14] LABS: ABG HCO3 42 mmol/L (21-25)
[2021-05-03 06:15] LABS: Carbon Dioxide 41 mmol/L (22-30)
[2021-05-03] MEDS: NOREPINEPHRINE 8 MG in SODIUM CHLORIDE 0.9% 250 ML IV SCH (06:28)
[2021-05-03] MEDS: LEVOTHYROXINE 112 MCG TAB PO SCH (06:30)
[2021-05-03] MEDS: fentaNYL (PF) 2,500 MCG in SODIUM CHLORIDE 0.9% 200 ML IV SCH ×2 (08:11→17:10)
[2021-05-03] MEDS: ALBUTEROL HFA INHALER INHALATION SCH ×4 (08:18→20:49)
[2021-05-03] MEDS: SYMBICORT 160-4.5 MCG INHALER INHALATION SCH ×2 (08:18→20:49)
--- NOTE | 2021-05-03 08:32 | XR ---
EXAMINATION TYPE: XR chest 1V DATE OF EXAM: 05/03/2021 COMPARISON: Chest x-ray 05/02/2021 HISTORY: Covid pneumonia, patient on ventilator TECHNIQUE: Single frontal view of the chest is obtained. FINDINGS: Right-sided PICC line is present, distal tip is overlying the right atrium, there is an NG tube and endotracheal tube overlying appropriate positions. Side port of the NG tube is proximal to the gastroesophageal junction however. There is no pneumothorax or pleural effusion evident. Cardiac mediastinal silhouette shows a similar appearance. Bilateral groundglass opacity, airspace disease is again seen. IMPRESSION: Correlate for pneumonia versus edema and congestive heart failure, ARDS. NG tube as desc ribed.
[2021-05-03] MEDS: ASCORBIC ACID 500 MG TAB PO SCH (09:03)
[2021-05-03] MEDS: CHOLECALCIFEROL 125 MCG (5000 IU) TABLET PO SCH (09:03)
[2021-05-03] MEDS: ZINC SULFATE 220 MG CAP PO SCH (09:04)
[2021-05-03] MEDS: PANTOPRAZOLE 40 MG/10 ML VIAL IVP SCH (09:04)
[2021-05-03] MEDS: CHLORHEXIDINE GLUCONATE 15 ML CUP MUCOUS MEM SCH ×2 (09:04→21:43)
[2021-05-03] MEDS: DEXAMETHASONE SOD PHOSPHATE 10 MG/ML 1 ML VIAL IVP SCH ×2 (09:04→21:45)
[2021-05-03] MEDS: ENOXAPARIN 100 MG/ML SYRINGE SQ SCH ×2 (09:05→21:43)
[2021-05-03 11:49] LABS: Glucose,Whole Blood 92 mg/dL (75-99)
--- NOTE | 2021-05-03 13:05 | P.PN ---
Subjective Progress Note Date: 05/03/21 Principal diagnosis: Acute hypoxic respiration is secondary to COVID-19 pneumonia 04/28/2021, the patient is intubated on a mechanical ventilator. Family has been updated on her condition. The patient went into respiratory failure requiring intubation mechanical ventilation. 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 The patient was intubated yesterday pH is currently on assist control mode of mechanical ventilation. She is on a tidal volume of 300 with a rate of 34 and therefore it is currently at 60% with a PEEP of 18. The patient has a airway pressure of 40 anesthetic airway pressures 38. Chest x-ray from today shows some improvement in aeration bilaterally and this could be potentially a PEEP effect. ET tube is in a good location. Orogastric tube is also in a good location. The patient has a triple lumen catheter in the left subclavian vein. The patient continues to receive treatment for Covid 19. She is on a combination of sepsis Decadron 6 mg IV every 12 hours and she is also on Lovenox and she is currently on a therapeutic dose as the CT angiogram showed a questionable filling defect in the right lower lobe pulmonary artery branch. Tympanic clinic, the patient is also covered with a combination of cefepime and Levaquin. Her pro-calcitonin level was significantly elevated. I was concerned of an underlying infection and for that reason the patient was covered with broad-spectrum antibiotics. The white cell count today is at 22.9 which is still elevated. In terms of her blood gases, the pH currently is at 7.28 with a pCO2 of 92 and pO2 of 113. The patient was developing some respiratory acidosis. I added some bicarb infusion yesterday and the bicarb infusion is running at the rate of 75 mL an hour. The serum bicarbonate currently is at 41. he is hemodynamically stable. She is on no pressors. BUN 12 with a creatinine of 0.4. The LDH level from yesterday was 2908. His CRP level was 20.0. Her d-dimer came down from 34-16.5. She was started on enteral feeding for nutritional support. She is currently on vital high protein at the rate of 30 mL an hour. The fluid balance has been +1.3 L over the past 24 hours. She is afebrile. Reevaluated today on 04/29/2021, remains in the ICU intubated and mechanically ventilated. She is on assist control rate of 34 total volume 300 FiO2 50% PEEP of 16. ABG showed a pO2 of 113 pCO2 of 83 pH of 7.39, this ABG was done on 60%, patient remains on propofol at 60 mcg/kg/m, she is on fentanyl at 2.5 mcg/kg/h, she is also on Nimbex at 3 mcg/kg/m, I cut down her IV fluid D5 W with bicarb to 25 mL per hour. Patient remains on cefepime. She does have right popliteal DVT, and she will has acute pulmonary embolism involving the right lower lobe, she is on treatment for and with anticoagulation therapy. Patient is on enteral feeding using vital HP at 31/31 mL per hour. Patient is not of norepinephrine today. Her ventilator settings remained the same, no changes were made, I plan to cut down her PEEP from 16 hopefully down to 14. Electrolytes are normal ho wever her bicarb is 45 and renal profile is normal, CBC showed leukocytosis with WBC count of 16 hemoglobin is 11.1 d-dimer remains elevated at 5.07. Chest x- ray showed no significant interval change compared to the last few days, continues to have bilateral airspace disease, groundglass opacities bilaterally. Consistent with COVID-19 pneumonia. Reevaluated today on 04/30/2021, patient remains in the ICU, intubated, sedated, mechanically ventilated, paralyzed, patient is on fentanyl at 2.5 mcg/kg/h propofol at 60 mcg/kg/m Nimbex at 1.5 mcg/kg/m, she is also on bicarb drip at 25 mL per hour. Vent settings are assist control rate of 34 tidal volume 300 FiO2 60% PEEP is 16. ABG showed a pO2 of 103 pCO2 of 93 pH of 7.33 hence I cut down her FiO2 down to 50%, and advised nursing to monitor O2 saturation, and titrate the FiO2 accordingly maintaining an O2 saturation above 91%. Electrolytes are normal renal profile is normal pro-calcitonin is 0.39, slightly elevated. Blood cultures showed staph epidermidis, hence vancomycin was discontinued, and the patient remains on cefepime. Patient continues to have relatively high peak airway pressure of 57, plateau pressure is 34. Consistent with a mid 19 pneumonia and ARDS. Patient was reevaluated today on 05/01/2021, patient remains in the ICU, intubated and mechanically ventilated. She is on assist control rate of 34 tidal volume 300 FiO2 50% PEEP of 16. ABG showed a pO2 of 83 pCO2 of 90 pH of 7.35, hence I'm cutting down the PEEP from 16-14. Patient remains on tube feeding using vital HP at 31 mL per hour./goal. She is on fentanyl at 2.5 mcg/kg/hr,propofol 60 mcg/kg/m, Nimbex at 2.5 mcg/kg/m. Patient was actually intubated on 04/26, her peak airway pressure is 36 plateau pressure is 34. His ARDS. However I will try a lower PEEP today, and would consider even stopping Nimbex somewhere along the line if the patient tolerates lower PEEP. WBC count is 12.4 hemoglobin is 11, electrolytes are normal except for bicarb of 46 BUN of 18 and creatinine 0.47. Chest x-ray continues to show diffuse bilateral infiltrates with small pleural effusions. Patient was reevaluated today on 05/02/21, remains in the ICU, intubated and mechanically ventilated. Patient is presently on assist control rate of 34 tidal volume 300 FiO2 50% and PEEP was 12 and I cut it down to 10. Her ABG today showed a pO2 of 92 pCO2 of 69 pH of 7.44, patient is on bicarb drip which I have discontinued today. Remains on Nimbex which I have discontinued today, she is also on propofol at 60 mcg/kg/m, fentanyl 25 mcg/kg/h, and I have recommended that they stay at the same dose, but definitely cut down and discontinue Nimbex. Patient is on enteral feeding using vital HP at 3 1 mL per hour which is the goal. Patient is also noted to have relatively normal CBC, WBC count is 8.4 hemoglobin is 10.6. Chest x-ray is continues to show lateral infiltrates consistent with COVID-19 pneumonia, not much globe changer the last few days Patient was reevaluated today on 05/03/21, remains in the ICU, intubated and mechanically ventilated. Patient is on assist control rate of 34 tidal volume 300 FiO2 of 55% PEEP at 12, FiO2 was cut down to 50%. Patient remains on propofol at 60 mcg/kg/m she is also on fentanyl 2.5 mcg/kg per hour. She has been off Nimbex since yesterday. And the plan today is to cut down on propofol and fentanyl and hopefully assess her mental status. ABG showed a pO2 of 85 pCO2 of 62 pH of 7.44. He is 8.9 hemoglobin is 10.6. Electrolytes are normal renal profile is normal. Patient remains on enteral feeding, tolerating vital HP quite well. Chest x-ray is basically the same, no major change in her bilateral infiltrates. Patient remains on GI and DVT prophylaxis, she is on Lovenox at 100 mg subcu twice a day Objective - Vital Signs Vital signs: Vital Signs Temp 97.5 F L 05/03/21 08:00 Pulse 69 05/03/21 11:00 Resp 35 H 05/03/21 11:00 BP 106/65 05/03/21 11:00 Pulse Ox 100 05/03/21 11:00 Intake & Output 05/02/21 05/03/21 05/03/21 18:59 06:59 18:59 Intake Total 1834.402 890.962 564.832 Output Total 1520 1400 600 Balance 314.402 -509.038 -35.168 Weight 114.4 kg 114.4 kg Intake: IV 576 256 115 Cefepime 2 gm In Sodium 200 Chloride 0.9% 100 ml @ 25 mls/hr IVPB Q8HR [facility] Rx# :[id number] Levofloxacin 500Mg-D5w 100 Pmx 500 mg In Dextrose/ Water 1 100ml.bag @ 100 mls/hr IVPB Q24H [facility] Rx#: [id number] Pressure Bag 36 36 15 Sodium Chloride 0.9% 1, 240 220 100 000 ml @ 20 mls/hr IV . Q24H [facility] Rx#:[id number] Intake, IV Titration 767.402 510.962 325.832 Amount Cisatracurium 200 mg In 74.594 Sodium Chloride 0.9% 180 ml @ 1 MCG/KG/MIN 6.26 mls/hr IV .Q24H [facility] Rx#: [id number] Dextrose 5% in Water 1, 75 000 ml @ 25 mls/hr IV . Q24H [facility] with Sodium Bicarb (1 Meq/ml) 150 ml Rx#:[id number] fentaNYL (PF) 2,500 mcg 226.198 229.684 224.454 In Sodium Chloride 0.9% 200 ml @ 0.5 MCG/KG/HR 5. 23 mls/hr IV .Q24H [facility] Rx #:[id number] propofoL 1,000 mg In 391.61 281.278 101.378 Empty Bag 1 bag @ Titrate IV .Q0M [facility] Rx#: [id number] Tube Feeding 341 124 124 Other 150 Output: Urine 1520 1400 600 Other: Voiding Method Indwelling Catheter Indwelling Catheter Indwelling Catheter ABP, PAP, CO, CI - Last Documented Arterial Blood Pressure 95/43 - Exam Physical Exam revealed a 46-year-old -La[place] female, intubated, mechanically ventilated, sedated not paralyzed. Head: Atraumatic, normocephalic, orogastric tube and endotracheal tube are intact. HEENT:[Neck is supple.] [No neck masses.] [No thyromegaly.] [No JVD.] No adenopathy is appreciated. Chest: [Fine crackles at the bases symmetrical chest expansion. Cardiac Exam: [Normal S1 and S2, no S3 gallop, no murmur.] Abdomen: [Soft, nontender, no megaly, no rebound, no guarding, normal bowel sounds.] Extremities: [No clubbing, no edema, no cyanosis.] Good pulses bilaterally. Neurological Exam: Patient is sedated , planning to cut down sedation today and hopefully assess mental status. Psychiatric: Could not assess - Labs CBC & Chem 7: 05/03/21 05:00 05/03/21 05:00 Labs: Abnormal Lab Results - Last 24 Hours (Table) 05/02/21 05/03/21 05/03/21 Range/Units 17:47 05:00 05:00 RBC 3.48 L (3.80-5.40) m/uL Hgb 10.6 L (11.4-16.0) gm/dL MCHC 30.5 L (31.0-37.0) g/dL Neutrophils # 7.8 H (1.3-7.7) k/uL Lymphocytes # 0.6 L (1.0-4.8) k/uL ABG pCO2 (35-45) mmHg ABG HCO3 (21-25) mmol/L ABG Total CO2 (19-24) mmol/L Chloride 97 L (98-107) mmol/L Carbon Dioxide 41 H* (22-30) mmol/L BUN 19 H (7-17) mg/dL Creatinine 0.47 L (0.52-1.04) mg/dL Glucose 110 H (74-99) mg/dL POC Glucose (mg/dL) 104 H (75-99) mg/dL 05/03/21 Range/Units 05:15 RBC (3.80-5.40) m/uL Hgb (11.4-16.0) gm/dL MCHC (31.0-37.0) g/dL Neutrophils # (1.3-7.7) k/uL Lymphocytes # (1.0-4.8) k/uL ABG pCO2 62 H (35-45) mmHg ABG HCO3 42 H* (21-25) mmol/L ABG Total CO2 44 H (19-24) mmol/L Chloride (98-107) mmol/L Carbon Dioxide (22-30) mmol/L BUN (7-17) mg/dL Creatinine (0.52-1.04) mg/dL Glucose (74-99) mg/dL POC Glucose (mg/dL) (75-99) mg/dL Microbiology - Last 24 Hours (Table) 05/02/21 23:32 Sputum Culture - Preliminary Sputum 04/30/21 08:10 Blood Culture - Preliminary Blood No Growth after 72 hours 04/27/21 18:30 Blood Culture Gram Stain - Final Blood Blood Culture - Final Staphylococcus epidermidis Assessment and Plan Assessment: Impression: Acute hypoxic respiratory failure secondary to COVID-19 pneumonia, patient is not vaccinated. Diagnosed initially on 04/13/2021, hospitalized and discharged home on 04/18, readmitted and intubated on 04/27/2021, remains intubated and mechanically ventilated. Initially placed on Baricitinib which was discontinued because of concern of infection and elevated pro calcitonin. Patient is on therapeutic Lovenox because of abnormal venous Doppler and abnormal CT angiogram of the chest. Acute right lower lobe pulmonary embolism Acute respiratory acidosis History of hypothyroidism History of marijuana smoking Recommendation: Keep patient off paralytics, cut down the dose of propofol and fentanyl today, and assess mental status today. Not quite ready for weaning at this point however I was able to cut down her FiO2 to 50%, and her PEEP is down to 12, may even cut it down to 10 today. Continue ventilatory support, changes as noted above. Continue anticoagulation therapy. Continue therapeutic Lovenox. Continue Levaquin and cefepime Continue COVID-19 cocktail. Continue to monitor daily x-rays and daily inflammatory markers. Continue enteral feeding Continue GI prophylaxis Patient remains critically ill. Critical care time is over 30 minutes. We'll continue to follow while in ICU. Time with Patient: Greater than 30
[2021-05-03] MEDS: SODIUM CHLORIDE 0.9% 500 ML 500 ML IV SCH (13:10)
--- NOTE | 2021-05-03 15:10 | P.PN ---
Subjective Progress Note Date: 05/02/21 Principal diagnosis: Pneumonia and bacteremia Interval history : Patient is a 46-year-old -Greek female with admission diagnoses: Acute COVID-19 pneumonia subsequently admission to the hospital with worsening respiratory status has been diagnosed with a DVT and PE. On today's evaluation that is 05/02/2021, The patient remains to be afebrile, the patient is hemodynamically stable not on pressor support , the patient FiO2 is currently stable at 55%, no significant purulent secretion through the ET, patient has been tolerating tube feeds and diarrhea or any other changes reported by nursing staff Objective - Vital Signs Vital signs: Vital Signs Temp 97.4 F L 05/02/21 08:00 Pulse 61 05/02/21 13:00 Resp 35 H 05/02/21 13:00 BP 106/65 05/02/21 02:00 Pulse Ox 100 05/02/21 13:00 Intake & Output 05/01/21 05/02/21 05/02/21 18:59 06:59 18:59 Intake Total 2065.213 0034.831 3293.204 Output Total 1290 1385 420 Balance 775.213 51.115 619.204 Weight 114.2 kg Intake: IV 576 276 261 Cefepime 2 gm In Sodium 200 100 Chloride 0.9% 100 ml @ 25 mls/hr IVPB Q8HR [facility] Rx# :[id number] Levofloxacin 500Mg-D5w 100 Pmx 500 mg In Dextrose/ Water 1 100ml.bag @ 100 mls/hr IVPB Q24H [facility] Rx#: [id number] Pressure Bag 36 36 21 Sodium Chloride 0.9% 1, 240 240 140 000 ml @ 20 mls/hr IV . Q24H [facility] Rx#:[id number] Intake, IV Titration 957.213 788.115 441.204 Amount Cisatracurium 200 mg In 176.834 194.048 74.594 Sodium Chloride 0.9% 180 ml @ 1 MCG/KG/MIN 6.26 mls/hr IV .Q24H [facility] Rx#: [id number] Dextrose 5% in Water 1, 250 75 000 ml @ 25 mls/hr IV . Q24H [facility] with Sodium Bicarb (1 Meq/ml) 150 ml Rx#:[id number] fentaNYL (PF) 2,500 mcg 250 494.067 In Sodium Chloride 0.9% 200 ml @ 0.5 MCG/KG/HR 5. 23 mls/hr IV .Q24H [facility] Rx #:[id number] propofoL 1,000 mg In 280.379 100 291.61 Empty Bag 1 bag @ Titrate IV .Q0M [facility] Rx#: [id number] Tube Feeding 372 372 217 Other 160 120 Output: Urine 1290 1385 420 Other: Voiding Method Indwelling Catheter Indwelling Catheter Indwelling Catheter ABP, PAP, CO, CI - Last Documented Arterial Blood Pressure 130/66 - Exam GENERAL DESCRIPTION: Middle-aged female intubated on the vent RESPIRATORY SYSTEM: Unlabored breathing , decreased breath sounds at bases HEART: S1 S2 regular rate and rhythm ,no loud murmurs ABDOMEN: Soft , no tenderness EXTREMITIES: No edema feet - Labs CBC & Chem 7: 05/03/21 05:00 05/03/21 05:00 Labs: Abnormal Lab Results - Last 24 Hours (Table) 05/01/21 05/02/21 05/02/21 Range/Units 17:57 04:20 04:20 RBC 3.38 L (3.80-5.40) m/uL Hgb 10.6 L (11.4-16.0) gm/dL Hct 33.4 L (34.0-46.0) % Lymphocytes # 0.6 L (1.0-4.8) k/uL ABG pCO2 (35-45) mmHg ABG HCO3 (21-25) mmol/L ABG Total CO2 (19-24) mmol/L ABG O2 Saturation (94-97) % Chloride 96 L (98-107) mmol/L Carbon Dioxide 41 H* (22-30) mmol/L BUN 18 H (7-17) mg/dL Creatinine 0.46 L (0.52-1.04) mg/dL Glucose 117 H (74-99) mg/dL POC Glucose (mg/dL) 115 H (75-99) mg/dL 05/02/21 05/02/21 Range/Units 06:00 11:35 RBC (3.80-5.40) m/uL Hgb (11.4-16.0) gm/dL Hct (34.0-46.0) % Lymphocytes # (1.0-4.8) k/uL ABG pCO2 69 H (35-45) mmHg ABG HCO3 46 H* (21-25) mmol/L ABG Total CO2 48 H (19-24) mmol/L ABG O2 Saturation 97.7 H (94-97) % Chloride (98-107) mmol/L Carbon Dioxide (22-30) mmol/L BUN (7-17) mg/dL Creatinine (0.52-1.04) mg/dL Glucose (74-99) mg/dL POC Glucose (mg/dL) 109 H (75-99) mg/dL Microbiology - Last 24 Hours (Table) 04/30/21 08:10 Blood Culture - Preliminary Blood No Growth after 48 hours 04/27/21 18:30 Blood Culture Gram Stain - Final Blood Blood Culture - Final Staphylococcus epidermidis Assessment and Plan Assessment: 1-patient with a positive blood culture which has been finalized and staph epi likely skin contaminant vancomycin discontinued, Repeat blood culture has been negative so far 2-acute respiratory failure which is multifactorial possible component of pneumonia, Sputum has been usual respiratory pat White count is trending down down to 8.4, patient to continue with cefepime while monitoring her clinical course closely Time with Patient: Less than 30
--- NOTE | 2021-05-03 15:11 | P.PN ---
Subjective Progress Note Date: 05/03/21 Principal diagnosis: Pneumonia and bacteremia Interval history : Patient is a 46-year-old -[place] female with admission diagnoses: Acute COVID-19 pneumonia subsequently admission to the hospital with worsening respiratory status has been diagnosed with a DVT and PE. On today's evaluation that is 05/03/2021, The patient continues to be afebrile, the patient is hemodynamically stable not requiring any pressor support , the patient FiO2 is currently stable at 55%, no significant purulent secretion through the ET has been reported by the nursing staff, patient has been tolerating tube feeds and no diarrhea reported Objective - Vital Signs Vital signs: Vital Signs Temp 97.4 F L 05/03/21 12:00 Pulse 93 05/03/21 13:00 Resp 8 L 05/03/21 13:00 BP 106/65 05/03/21 13:00 Pulse Ox 98 05/03/21 13:00 Intake & Output 05/02/21 05/03/21 05/03/21 18:59 06:59 18:59 Intake Total 1834.402 890.962 705.212 Output Total 1520 1400 850 Balance 314.402 -509.038 -144.788 Weight 114.4 kg 114.4 kg Intake: IV 576 256 161 Cefepime 2 gm In Sodium 200 Chloride 0.9% 100 ml @ 25 mls/hr IVPB Q8HR [facility] Rx# :[id number] Levofloxacin 500Mg-D5w 100 Pmx 500 mg In Dextrose/ Water 1 100ml.bag @ 100 mls/hr IVPB Q24H [facility] Rx#: [id number] Pressure Bag 36 36 21 Sodium Chloride 0.9% 1, 240 220 140 000 ml @ 20 mls/hr IV . Q24H [facility] Rx#:[id number] Intake, IV Titration 767.402 510.962 420.212 Amount Cisatracurium 200 mg In 74.594 Sodium Chloride 0.9% 180 ml @ 1 MCG/KG/MIN 6.26 mls/hr IV .Q24H [facility] Rx#: [id number] Dextrose 5% in Water 1, 75 000 ml @ 25 mls/hr IV . Q24H [facility] with Sodium Bicarb (1 Meq/ml) 150 ml Rx#:[id number] fentaNYL (PF) 2,500 mcg 226.198 229.684 224.454 In Sodium Chloride 0.9% 200 ml @ 0.5 MCG/KG/HR 5. 23 mls/hr IV .Q24H [facility] Rx #:[id number] propofoL 1,000 mg In 391.61 281.278 195.758 Empty Bag 1 bag @ Titrate IV .Q0M [facility] Rx#: [id number] Tube Feeding 341 124 124 Other 150 Output: Urine 1520 1400 850 Other: Voiding Method Indwelling Catheter Indwelling Catheter Indwelling Catheter ABP, PAP, CO, CI - Last Documented Arterial Blood Pressure 133/68 - Exam GENERAL DESCRIPTION: Middle-aged female intubated on the vent RESPIRATORY SYSTEM: Unlabored breathing , decreased breath sounds at bases HEART: S1 S2 regular rate and rhythm ,no loud murmurs ABDOMEN: Soft , no tenderness EXTREMITIES: No edema feet - Labs CBC & Chem 7: 05/03/21 05:00 05/03/21 05:00 Labs: Abnormal Lab Results - Last 24 Hours (Table) 05/02/21 05/03/21 05/03/21 Range/Units 17:47 05:00 05:00 RBC 3.48 L (3.80-5.40) m/uL Hgb 10.6 L (11.4-16.0) gm/dL MCHC 30.5 L (31.0-37.0) g/dL Neutrophils # 7.8 H (1.3-7.7) k/uL Lymphocytes # 0.6 L (1.0-4.8) k/uL ABG pCO2 (35-45) mmHg ABG HCO3 (21-25) mmol/L ABG Total CO2 (19-24) mmol/L Chloride 97 L (98-107) mmol/L Carbon Dioxide 41 H* (22-30) mmol/L BUN 19 H (7-17) mg/dL Creatinine 0.47 L (0.52-1.04) mg/dL Glucose 110 H (74-99) mg/dL POC Glucose (mg/dL) 104 H (75-99) mg/dL 05/03/21 Range/Units 05:15 RBC (3.80-5.40) m/uL Hgb (11.4-16.0) gm/dL MCHC (31.0-37.0) g/dL Neutrophils # (1.3-7.7) k/uL Lymphocytes # (1.0-4.8) k/uL ABG pCO2 62 H (35-45) mmHg ABG HCO3 42 H* (21-25) mmol/L ABG Total CO2 44 H (19-24) mmol/L Chloride (98-107) mmol/L Carbon Dioxide (22-30) mmol/L BUN (7-17) mg/dL Creatinine (0.52-1.04) mg/dL Glucose (74-99) mg/dL POC Glucose (mg/dL) (75-99) mg/dL Microbiology - Last 24 Hours (Table) 05/02/21 23:32 Sputum Culture - Preliminary Sputum 04/30/21 08:10 Blood Culture - Preliminary Blood No Growth after 72 hours 04/27/21 18:30 Blood Culture Gram Stain - Final Blood Blood Culture - Final Staphylococcus epidermidis Assessment and Plan Assessment: 1-patient with a positive blood culture which has been finalized and staph epi likely skin contaminant vancomycin discontinued, Repeat blood culture has been negative so far, patient doing well off vancomycin 2-acute respiratory failure which is multifactorial possible component of pneumonia, Sputum has been usual respiratory pat White count is normal with a reading of 8.9 today, patient to continue with cefepime while monitoring her clinical course closely
[2021-05-03] MEDS: LEVOFLOXACIN 500MG-D5W PMX 500 MG in DEXTROSE/WATER 1 100ML.BAG IVPB SCH (17:14)
[2021-05-03 17:57] LABS: Glucose,Whole Blood 127 mg/dL (75-99)
[2021-05-04 00:03] LABS: Glucose,Whole Blood 112 mg/dL (75-99)
[2021-05-04] MEDS: CEFEPIME 2 GM in SODIUM CHLORIDE 0.9% 100 ML IVPB SCH ×4 (00:16→23:56)
[2021-05-04] MEDS: ARTIFICIAL TEARS-HYPROMELLOSE DROPS 15 ML BTL BOTH EYES SCH ×7 (00:16→23:56)
[2021-05-04] MEDS: fentaNYL (PF) 2,500 MCG in SODIUM CHLORIDE 0.9% 200 ML IV SCH ×3 (01:49→21:57)
[2021-05-04] MEDS: INSULIN ASPART (NovoLOG) 100 UNIT/ML VIAL SQ SCH ×5 (01:51→23:59)
[2021-05-04 03:50] LABS: HCT 31.9 % (34.0-46.0); HGB 10.4 gm/dL (11.4-16.0); MCHC 32.7 g/dL (31.0-37.0); Mean Platelet Volume 9.3; Platelet Count 404 k/uL (150-450); RBC 3.25 m/uL (3.80-5.40); RDW 13.4 % (11.5-15.5)
[2021-05-04 03:59] LABS: ALT 131 U/L (4-34); AST 82 U/L (14-36); African American GFR (CKD) >90 (>60 ml/min/1.73 sqM); Albumin 2.5 g/dL (3.5-5.0); Alkaline Phosphatase 70 U/L (38-126); Blood Urea Nitrogen 17 mg/dL (7-17); Calcium 8.5 mg/dL (8.4-10.2); Chloride 98 mmol/L (98-107); Glucose 118 mg/dL (74-99); Non-African American GFR(CKD) >90 (>60 ml/min/1.73 sqM); Potassium 4.4 mmol/L (3.5-5.1); Sodium 138 mmol/L (137-145); Total Bilirubin 0.5 mg/dL (0.2-1.3); Total Protein 5.7 g/dL (6.3-8.2)
[2021-05-04 04:05] LABS: Anion Gap 1 mmol/L
[2021-05-04 04:12] LABS: Carbon Dioxide 39 mmol/L (22-30)
[2021-05-04] MEDS: NOREPINEPHRINE 8 MG in SODIUM CHLORIDE 0.9% 250 ML IV SCH (05:11)
[2021-05-04 05:34] LABS: ABG Base Excess 17.6 mmol/L; ABG Oxygen Saturation 98.6 % (94-97); ABG PCO2 64 mmHg (35-45); ABG PH 7.42 (7.35-7.45); ABG PO2 108 mmHg (83-108); ABG TCO2 44 mmol/L (19-24); Allen Test Performed? Yes
[2021-05-04 05:42] LABS: ABG HCO3 42 mmol/L (21-25)
[2021-05-04 06:02] LABS: Glucose,Whole Blood 134 mg/dL (75-99)
[2021-05-04] MEDS: LEVOTHYROXINE 112 MCG TAB PO SCH (06:47)
--- NOTE | 2021-05-04 07:07 | XR ---
EXAMINATION TYPE: XR chest 1V DATE OF EXAM: 05/04/2021 5:48 AM COMPARISON:Chest radiograph from one day prior. TECHNIQUE: Frontal view of the chest. CLINICAL INDICATION:Female, 46 years old with history of intubated/covid; FINDINGS: Lungs/Pleura: Similar multifocal airspace opacities. No evidence of pneumothorax or pleural effusion. Pulmonary vascularity: Unremarkable. Heart/mediastinum: Cardiomediastinal silhouette is unremarkable. Musculoskeletal: No acute osseous pathology. Lines/Tubes: Endotracheal tube with distal tip 0.4 cm above the malini Nasogastric tube with its distal tip and side-port projecting under the diaphragm. Right-sided PICC line with distal tip at the cavoatrial junction. IMPRESSION: 1. Similar multifocal airspace opacities with slight differences likely secondary to phase of inspira tion. 2. Stable support lines and tubes.
[2021-05-04] MEDS: ALBUTEROL HFA INHALER INHALATION SCH ×4 (07:36→20:10)
[2021-05-04] MEDS: SYMBICORT 160-4.5 MCG INHALER INHALATION SCH ×2 (07:36→20:10)
[2021-05-04] MEDS: CHLORHEXIDINE GLUCONATE 15 ML CUP MUCOUS MEM SCH ×2 (08:18→21:32)
[2021-05-04] MEDS: ASCORBIC ACID 500 MG TAB PO SCH (08:18)
[2021-05-04] MEDS: ENOXAPARIN 100 MG/ML SYRINGE SQ SCH ×2 (08:18→21:32)
[2021-05-04] MEDS: CHOLECALCIFEROL 125 MCG (5000 IU) TABLET PO SCH (08:18)
[2021-05-04] MEDS: ZINC SULFATE 220 MG CAP PO SCH (08:18)
[2021-05-04] MEDS: PANTOPRAZOLE 40 MG/10 ML VIAL IVP SCH (08:19)
[2021-05-04] MEDS: DEXAMETHASONE SOD PHOSPHATE 10 MG/ML 1 ML VIAL IVP SCH ×2 (09:15→21:32)
[2021-05-04] MEDS: SODIUM CHLORIDE 0.9% 500 ML 500 ML IV SCH (11:59)
[2021-05-04 12:46] LABS: Glucose,Whole Blood 78 mg/dL (75-99)
--- NOTE | 2021-05-04 13:20 | P.PN ---
Subjective Progress Note Date: 05/04/21 Principal diagnosis: Acute hypoxic respiration is secondary to COVID-19 pneumonia 04/28/2021, the patient is intubated on a mechanical ventilator. Family has been updated on her condition. The patient went into respiratory failure requiring intubation mechanical ventilation. 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 The patient was intubated yesterday pH is currently on assist control mode of mechanical ventilation. She is on a tidal volume of 300 with a rate of 34 and therefore it is currently at 60% with a PEEP of 18. The patient has a airway pressure of 40 anesthetic airway pressures 38. Chest x-ray from today shows some improvement in aeration bilaterally and this could be potentially a PEEP effect. ET tube is in a good location. Orogastric tube is also in a good location. The patient has a triple lumen catheter in the left subclavian vein. The patient continues to receive treatment for Covid 19. She is on a combination of sepsis Decadron 6 mg IV every 12 hours and she is also on Lovenox and she is currently on a therapeutic dose as the CT angiogram showed a questionable filling defect in the right lower lobe pulmonary artery branch. Tympanic clinic, the patient is also covered with a combination of cefepime and Levaquin. Her pro-calcitonin level was significantly elevated. I was concerned of an underlying infection and for that reason the patient was covered with broad-spectrum antibiotics. The white cell count today is at 22.9 which is still elevated. In terms of her blood gases, the pH currently is at 7.28 with a pCO2 of 92 and pO2 of 113. The patient was developing some respiratory acidosis. I added some bicarb infusion yesterday and the bicarb infusion is running at the rate of 75 mL an hour. The serum bicarbonate currently is at 41. he is hemodynamically stable. She is on no pressors. BUN 12 with a creatinine of 0.4. The LDH level from yesterday was 2908. His CRP level was 20.0. Her d-dimer came down from 34-16.5. She was started on enteral feeding for nutritional support. She is currently on vital high protein at the rate of 30 mL an hour. The fluid balance has been +1.3 L over the past 24 hours. She is afebrile. Reevaluated today on 04/29/2021, remains in the ICU intubated and mechanically ventilated. She is on assist control rate of 34 total volume 300 FiO2 50% PEEP of 16. ABG showed a pO2 of 113 pCO2 of 83 pH of 7.39, this ABG was done on 60%, patient remains on propofol at 60 mcg/kg/m, she is on fentanyl at 2.5 mcg/kg/h, she is also on Nimbex at 3 mcg/kg/m, I cut down her IV fluid D5 W with bicarb to 25 mL per hour. Patient remains on cefepime. She does have right popliteal DVT, and she will has acute pulmonary embolism involving the right lower lobe, she is on treatment for and with anticoagulation therapy. Patient is on enteral feeding using vital HP at 31/31 mL per hour. Patient is not of norepinephrine today. Her ventilator settings remained the same, no changes were made, I plan to cut down her PEEP from 16 hopefully down to 14. Electrolytes are normal ho wever her bicarb is 45 and renal profile is normal, CBC showed leukocytosis with WBC count of 16 hemoglobin is 11.1 d-dimer remains elevated at 5.07. Chest x- ray showed no significant interval change compared to the last few days, continues to have bilateral airspace disease, groundglass opacities bilaterally. Consistent with COVID-19 pneumonia. Reevaluated today on 04/30/2021, patient remains in the ICU, intubated, sedated, mechanically ventilated, paralyzed, patient is on fentanyl at 2.5 mcg/kg/h propofol at 60 mcg/kg/m Nimbex at 1.5 mcg/kg/m, she is also on bicarb drip at 25 mL per hour. Vent settings are assist control rate of 34 tidal volume 300 FiO2 60% PEEP is 16. ABG showed a pO2 of 103 pCO2 of 93 pH of 7.33 hence I cut down her FiO2 down to 50%, and advised nursing to monitor O2 saturation, and titrate the FiO2 accordingly maintaining an O2 saturation above 91%. Electrolytes are normal renal profile is normal pro-calcitonin is 0.39, slightly elevated. Blood cultures showed staph epidermidis, hence vancomycin was discontinued, and the patient remains on cefepime. Patient continues to have relatively high peak airway pressure of 57, plateau pressure is 34. Consistent with a mid 19 pneumonia and ARDS. Patient was reevaluated today on 05/01/2021, patient remains in the ICU, intubated and mechanically ventilated. She is on assist control rate of 34 tidal volume 300 FiO2 50% PEEP of 16. ABG showed a pO2 of 83 pCO2 of 90 pH of 7.35, hence I'm cutting down the PEEP from 16-14. Patient remains on tube feeding using vital HP at 31 mL per hour./goal. She is on fentanyl at 2.5 mcg/kg/hr,propofol 60 mcg/kg/m, Nimbex at 2.5 mcg/kg/m. Patient was actually intubated on 04/26, her peak airway pressure is 36 plateau pressure is 34. His ARDS. However I will try a lower PEEP today, and would consider even stopping Nimbex somewhere along the line if the patient tolerates lower PEEP. WBC count is 12.4 hemoglobin is 11, electrolytes are normal except for bicarb of 46 BUN of 18 and creatinine 0.47. Chest x-ray continues to show diffuse bilateral infiltrates with small pleural effusions. Patient was reevaluated today on 05/02/21, remains in the ICU, intubated and mechanically ventilated. Patient is presently on assist control rate of 34 tidal volume 300 FiO2 50% and PEEP was 12 and I cut it down to 10. Her ABG today showed a pO2 of 92 pCO2 of 69 pH of 7.44, patient is on bicarb drip which I have discontinued today. Remains on Nimbex which I have discontinued today, she is also on propofol at 60 mcg/kg/m, fentanyl 25 mcg/kg/h, and I have recommended that they stay at the same dose, but definitely cut down and discontinue Nimbex. Patient is on enteral feeding using vital HP at 3 1 mL per hour which is the goal. Patient is also noted to have relatively normal CBC, WBC count is 8.4 hemoglobin is 10.6. Chest x-ray is continues to show lateral infiltrates consistent with COVID-19 pneumonia, not much change management facilitator the last few days Patient was reevaluated today on 05/03/21, remains in the ICU, intubated and mechanically ventilated. Patient is on assist control rate of 34 tidal volume 300 FiO2 of 55% PEEP at 12, FiO2 was cut down to 50%. Patient remains on propofol at 60 mcg/kg/m she is also on fentanyl 2.5 mcg/kg per hour. She has been off Nimbex since yesterday. And the plan today is to cut down on propofol and fentanyl and hopefully assess her mental status. ABG showed a pO2 of 85 pCO2 of 62 pH of 7.44. He is 8.9 hemoglobin is 10.6. Electrolytes are normal renal profile is normal. Patient remains on enteral feeding, tolerating vital HP quite well. Chest x-ray is basically the same, no major change in her bilateral infiltrates. Patient remains on GI and DVT prophylaxis, she is on Lovenox at 100 mg subcu twice a day Reevaluated today on 05/04/21, patient remains intubated and mechanically ventilated, however overall I believe the patient is demonstrating significant improvement. Her ABG looks better pO2 is 108 pCO2 64 pH of 7.42. Chest x-ray continues to show bilateral infiltrates, not much change. Remains on assist control rate of 34 tidal volume 300 FiO2 45% and PEEP is 12. I did cut down the FiO2 to 45% from 50% today, and I plan to cut down the PEEP from 12-10. Patient is still requiring fentanyl and propofol, she is on 2.5 mcg/kg/h of fentanyl and propofol at 60 mg/kg/m. My goal is to eventually switch this patient to Precedex, hold all narcotics and sedatives, and possibly address weaning. WBC count is 8 hemoglobin 10.4 lites are normal bicarb is 39 renal profile is normal. Yesterday patient was given a sedation holiday, and according to the nurse she was appropriate, and follows instructions. But was noted to be generally weak. Objective - Vital Signs Vital signs: Vital Signs Temp 97.9 F 05/04/21 12:00 Pulse 122 H 05/04/21 12:00 Resp 34 H 05/04/21 12:00 BP 131/69 05/04/21 12:00 Pulse Ox 99 05/04/21 12:00 Intake & Output 05/03/21 05/04/21 05/04/21 18:59 06:59 18:59 Intake Total 2308.966 3249.642 787.000 Output Total 1300 1740 925 Balance 162.070 -559.358 -138.000 Weight 114.4 kg 115.1 kg Intake: IV 401 301 238 Cefepime 2 gm In Sodium 25 25 100 Chloride 0.9% 100 ml @ 25 mls/hr IVPB Q8HR [facility] Rx# :[id number] Levofloxacin 500Mg-D5w 100 Pmx 500 mg In Dextrose/ Water 1 100ml.bag @ 100 mls/hr IVPB Q24H [facility] Rx#: [id number] Pressure Bag 36 36 18 Sodium Chloride 0.9% 1, 240 240 120 000 ml @ 20 mls/hr IV . Q24H [facility] Rx#:[id number] Intake, IV Titration 742.070 627.642 350.000 Amount fentaNYL (PF) 2,500 mcg 459.368 226.198 250.000 In Sodium Chloride 0.9% 200 ml @ 0.5 MCG/KG/HR 5. 23 mls/hr IV .Q24H [facility] Rx #:[id number] propofoL 1,000 mg In 282.702 401.444 Empty Bag 1 bag @ Titrate IV .Q0M [facility] Rx#: [id number] propofoL 1,000 mg In 100 Empty Bag 1 bag @ Titrate IV .Q0M [facility] Rx#: [id number] Tube Feeding 229 252 139 Other 90 60 Output: Urine 1300 1740 925 Other: Voiding Method Indwelling Catheter Indwelling Catheter Indwelling Catheter ABP, PAP, CO, CI - Last Documented Arterial Blood Pressure 142/71 - Exam Physical Exam revealed a 46-year-old -Malagasy female, intubated, mechanically ventilated sedated. Head: Atraumatic, normocephalic, orogastric tube and endotracheal tube are intact. HEENT:[Neck is supple.] [No neck masses.] [No thyromegaly.] [No JVD.] No adenopathy is appreciated. Chest: [Fine crackles at the bases symmetrical chest expansion. Cardiac Exam: [Normal S1 and S2, no S3 gallop, no murmur.] Abdomen: [Soft, nontender, no megaly, no rebound, no guarding, normal bowel sounds.] Extremities: [No clubbing, no edema, no cyanosis.] Good pulses bilaterally. Neurological Exam: Patient is sedated , patient will receive a sedation holiday again today. And possibly transition to Precedex Psychiatric: Could not assess - Labs CBC & Chem 7: 05/04/21 03:28 05/04/21 03:28 Labs: Abnormal Lab Results - Last 24 Hours (Table) 05/03/21 05/04/21 05/04/21 Range/Units 17:55 00:00 03:28 RBC 3.25 L (3.80-5.40) m/uL Hgb 10.4 L (11.4-16.0) gm/dL Hct 31.9 L (34.0-46.0) % ABG pCO2 (35-45) mmHg ABG HCO3 (21-25) mmol/L ABG Total CO2 (19-24) mmol/L ABG O2 Saturation (94-97) % Carbon Dioxide (22-30) mmol/L Creatinine (0.52-1.04) mg/dL Glucose (74-99) mg/dL POC Glucose (mg/dL) 127 H 112 H (75-99) mg/dL AST (14-36) U/L ALT (4-34) U/L Total Protein (6.3-8.2) g/dL Albumin (3.5-5.0) g/dL 05/04/21 05/04/21 05/04/21 Range/Units 03:28 05:30 06:01 RBC (3.80-5.40) m/uL Hgb (11.4-16.0) gm/dL Hct (34.0-46.0) % ABG pCO2 64 H (35-45) mmHg ABG HCO3 42 H* (21-25) mmol/L ABG Total CO2 44 H (19-24) mmol/L ABG O2 Saturation 98.6 H (94-97) % Carbon Dioxide 39 H (22-30) mmol/L Creatinine 0.43 L (0.52-1.04) mg/dL Glucose 118 H (74-99) mg/dL POC Glucose (mg/dL) 134 H (75-99) mg/dL AST 82 H (14-36) U/L ALT 131 H (4-34) U/L Total Protein 5.7 L (6.3-8.2) g/dL Albumin 2.5 L (3.5-5.0) g/dL Microbiology - Last 24 Hours (Table) 04/30/21 08:10 Blood Culture - Preliminary Blood No Growth after 96 hours 05/02/21 23:32 Gram Stain - Preliminary Sputum Sputum Culture - Preliminary 04/27/21 18:30 Blood Culture Gram Stain - Final Blood Blood Culture - Final Staphylococcus epidermidis Assessment and Plan Assessment: Impression: Acute hypoxic respiratory failure secondary to COVID-19 pneumonia, patient is not vaccinated. Diagnosed initially on 04/13/2021, hospitalized and discharged home on 04/18, readmitted and intubated on 04/27/2021, remains intubated and mechanically ventilated. Initially placed on Baricitinib which was discontinued because of concern of infection and elevated pro calcitonin. Patient is on therapeutic Lovenox because of abnormal venous Doppler and abnormal CT angiogram of the chest. Acute right lower lobe pulmonary embolism Acute respiratory acidosis History of hypothyroidism History of marijuana smoking Recommendation: Continue ventilatory support, however cut down FiO2 to 45% and may cut down the PEEP from 12-10 later today. Cut down on sedation, patient will receive a sedation holiday today, may even consider placing the patient on Precedex. Continue anticoagulation therapy. Continue therapeutic Lovenox. Continue Levaquin and cefepime Continue COVID-19 cocktail. Continue to monitor daily x-rays and daily inflammatory markers. Continue enteral feeding Continue GI prophylaxis Patient remains critically ill. Critical care time is over 30 minutes. We'll continue to follow while in ICU. Time with Patient: Greater than 30
[2021-05-04 18:01] LABS: Glucose,Whole Blood 86 mg/dL (75-99)
--- NOTE | 2021-05-04 20:51 | PN ---
PROGRESS NOTE CHIEF COMPLAINT: COVID pneumonia and respiratory failure. HISTORY OF PRESENT ILLNESS: This lady is about the same. Pulmonology feels that there is a chance for slight improvement. X-ray is about the same. Vital signs are stable. PHYSICAL EXAMINATION: Chest: Clear in the ventilator. Cardiac exam is normal. IMPRESSION: COVID pneumonia with respiratory failure. PLAN: She continues to be managed in ICU on the ventilator with slight attempted improving settings and including dropping her FiO2 and attempt has been made to drop sedation which revealed some normal responses. MMODL / IJN: [id number] /
--- NOTE | 2021-05-04 21:38 | P.PN ---
Subjective Progress Note Date: 05/04/21 Principal diagnosis: Pneumonia and bacteremia Interval history : Patient is a 46-year-old -[place] female with admission diagnoses: Acute COVID-19 pneumonia subsequently admission to the hospital with worsening respiratory status has been diagnosed with a DVT and PE. On today's evaluation that is 05/04/2021, The patient remains to be afebrile, the patient is hemodynamically stable not on pressor support , the patient FiO2 is currently stable, no significant purulent secretion through the ET has been reported by the nursing staff, patient has been tolerating tube feeds and no diarrhea has been reported Objective - Vital Signs Vital signs: Vital Signs Temp 97.8 F 05/04/21 16:00 Pulse 67 05/04/21 19:00 Resp 34 H 05/04/21 19:00 BP 131/69 05/04/21 12:00 Pulse Ox 100 05/04/21 19:00 Intake & Output 05/04/21 05/04/21 05/05/21 06:59 18:59 06:59 Intake Total 3180.705 6728.000 44 Output Total 1740 2450 250 Balance -559.358 -1382.000 -206 Weight 115.1 kg Intake: IV 301 376 23 Cefepime 2 gm In Sodium 25 100 Chloride 0.9% 100 ml @ 25 mls/hr IVPB Q8HR [facility] Rx# :[id number] Pressure Bag 36 36 3 Sodium Chloride 0.9% 1, 240 240 20 000 ml @ 20 mls/hr IV . Q24H [facility] Rx#:[id number] Intake, IV Titration 627.642 350.000 Amount fentaNYL (PF) 2,500 mcg 226.198 250.000 In Sodium Chloride 0.9% 200 ml @ 0.5 MCG/KG/HR 5. 23 mls/hr IV .Q24H [facility] Rx #:[id number] propofoL 1,000 mg In 401.444 Empty Bag 1 bag @ Titrate IV .Q0M [facility] Rx#: [id number] propofoL 1,000 mg In 100 Empty Bag 1 bag @ Titrate IV .Q0M [facility] Rx#: [id number] Tube Feeding 252 252 21 Other 90 Output: Urine 1740 2450 250 Other: Voiding Method Indwelling Catheter Indwelling Catheter ABP, PAP, CO, CI - Last Documented Arterial Blood Pressure 103/48 - Exam GENERAL DESCRIPTION: Middle-aged female intubated on the vent RESPIRATORY SYSTEM: Unlabored breathing , decreased breath sounds at bases HEART: S1 S2 regular rate and rhythm ,no loud murmurs ABDOMEN: Soft , no tenderness EXTREMITIES: No edema feet - Labs CBC & Chem 7: 05/04/21 03:28 05/04/21 03:28 Labs: Abnormal Lab Results - Last 24 Hours (Table) 05/04/21 05/04/21 05/04/21 Range/Units 00:00 03:28 03:28 RBC 3.25 L (3.80-5.40) m/uL Hgb 10.4 L (11.4-16.0) gm/dL Hct 31.9 L (34.0-46.0) % ABG pCO2 (35-45) mmHg ABG HCO3 (21-25) mmol/L ABG Total CO2 (19-24) mmol/L ABG O2 Saturation (94-97) % Carbon Dioxide 39 H (22-30) mmol/L Creatinine 0.43 L (0.52-1.04) mg/dL Glucose 118 H (74-99) mg/dL POC Glucose (mg/dL) 112 H (75-99) mg/dL AST 82 H (14-36) U/L ALT 131 H (4-34) U/L Total Protein 5.7 L (6.3-8.2) g/dL Albumin 2.5 L (3.5-5.0) g/dL 05/04/21 05/04/21 Range/Units 05:30 06:01 RBC (3.80-5.40) m/uL Hgb (11.4-16.0) gm/dL Hct (34.0-46.0) % ABG pCO2 64 H (35-45) mmHg ABG HCO3 42 H* (21-25) mmol/L ABG Total CO2 44 H (19-24) mmol/L ABG O2 Saturation 98.6 H (94-97) % Carbon Dioxide (22-30) mmol/L Creatinine (0.52-1.04) mg/dL Glucose (74-99) mg/dL POC Glucose (mg/dL) 134 H (75-99) mg/dL AST (14-36) U/L ALT (4-34) U/L Total Protein (6.3-8.2) g/dL Albumin (3.5-5.0) g/dL Microbiology - Last 24 Hours (Table) 04/30/21 08:10 Blood Culture - Preliminary Blood No Growth after 96 hours 05/02/21 23:32 Gram Stain - Preliminary Sputum Sputum Culture - Preliminary Assessment and Plan (1) Positive blood culture Current Visit: Yes Status: Acute Code(s): R78.81 - BACTEREMIA SNOMED Code(s): 772251384 (2) COVID-19 Current Visit: Yes Status: Acute Code(s): U07.1 - COVID-19 SNOMED Code(s): 298787131 Plan: 1-patient with a positive blood culture which has been finalized and staph epi likely skin contaminant vancomycin discontinued, Repeat blood culture has been negative so far, patient doing well off vancomycin 2-acute respiratory failure which is multifactorial possible component of pneumonia, Sputum has been usual respiratory pat White count is normal, the patient patient to continue with cefepime while monitoring her clinical course closely
[2021-05-04 23:43] LABS: Glucose,Whole Blood 104 mg/dL (75-99)
[2021-05-05] MEDS: ARTIFICIAL TEARS-HYPROMELLOSE DROPS 15 ML BTL BOTH EYES SCH (03:10)
[2021-05-05 05:08] LABS: HCT 32.7 % (34.0-46.0); HGB 10.5 gm/dL (11.4-16.0); MCH 31.7 pg (25.0-35.0); MCHC 32.2 g/dL (31.0-37.0); MCV 98.4 fL (80.0-100.0); Mean Platelet Volume 9.5; Platelet Count 402 k/uL (150-450); RBC 3.32 m/uL (3.80-5.40); RDW 13.8 % (11.5-15.5); WBC 5.5 k/uL (3.8-10.6)
[2021-05-05 05:39] LABS: ALT 140 U/L (4-34); AST 83 U/L (14-36); African American GFR (CKD) >90 (>60 ml/min/1.73 sqM); Albumin 2.6 g/dL (3.5-5.0); Alkaline Phosphatase 73 U/L (38-126); Anion Gap 1 mmol/L; Blood Urea Nitrogen 17 mg/dL (7-17); Calcium 8.8 mg/dL (8.4-10.2); Carbon Dioxide 37 mmol/L (22-30); Chloride 100 mmol/L (98-107); Glucose 109 mg/dL (74-99); Non-African American GFR(CKD) >90 (>60 ml/min/1.73 sqM); Potassium 4.4 mmol/L (3.5-5.1); Sodium 138 mmol/L (137-145); Total Bilirubin 0.5 mg/dL (0.2-1.3); Total Protein 5.8 g/dL (6.3-8.2)
[2021-05-05 05:43] LABS: Glucose,Whole Blood 83 mg/dL (75-99)
[2021-05-05 05:58] LABS: ABG Oxygen Saturation 88.8 % (94-97); ABG PCO2 63 mmHg (35-45); ABG PH 7.41 (7.35-7.45); ABG TCO2 42 mmol/L (19-24); Allen Test Performed? Yes
[2021-05-05 06:05] LABS: ABG PO2 57 mmHg (83-108)
[2021-05-05 06:06] LABS: ABG HCO3 40 mmol/L (21-25)
[2021-05-05] MEDS: INSULIN ASPART (NovoLOG) 100 UNIT/ML VIAL SQ SCH ×3 (06:15→20:04)
[2021-05-05] MEDS: NOREPINEPHRINE 8 MG in SODIUM CHLORIDE 0.9% 250 ML IV SCH (06:22)
[2021-05-05] MEDS: CISATRACURIUM 200 MG in SODIUM CHLORIDE 0.9% 180 ML IV SCH (06:22)
[2021-05-05] MEDS: LEVOTHYROXINE 112 MCG TAB PO SCH (06:22)
[2021-05-05] MEDS: fentaNYL (PF) 2,500 MCG in SODIUM CHLORIDE 0.9% 200 ML IV SCH ×2 (07:25→17:06)
[2021-05-05] MEDS: CEFEPIME 2 GM in SODIUM CHLORIDE 0.9% 100 ML IVPB SCH ×2 (08:07→16:08)
--- NOTE | 2021-05-05 08:20 | XR ---
EXAMINATION TYPE: XR chest 1V DATE OF EXAM: 05/05/2021 COMPARISON: Chest x-ray 05/04/2021 HISTORY: Intubated TECHNIQUE: Single frontal view of the chest is obtained. FINDINGS: Endotracheal tube and NG tube, right-sided PICC line are overlying appropriate positions, side-port of the NG tube may be close proximity to the gastroesophageal junction. There is no evident pneumothorax or pleural effusion. Bilateral airspace disease shows a similar appearance. Cardiomedia stinal silhouette is not significantly changed accounting for differences in technique. IMPRESSION: Findings are similar to prior exam, correlate for pneumonia, congestive heart failure, A RDS
[2021-05-05] MEDS: SYMBICORT 160-4.5 MCG INHALER INHALATION SCH ×2 (08:44→20:03)
[2021-05-05] MEDS: ALBUTEROL HFA INHALER INHALATION SCH ×4 (08:44→20:01)
[2021-05-05] MEDS: CHLORHEXIDINE GLUCONATE 15 ML CUP MUCOUS MEM SCH ×2 (08:54→20:07)
[2021-05-05] MEDS: ENOXAPARIN 100 MG/ML SYRINGE SQ SCH ×2 (08:54→20:07)
[2021-05-05] MEDS: PANTOPRAZOLE 40 MG/10 ML VIAL IVP SCH (08:55)
[2021-05-05] MEDS: ZINC SULFATE 220 MG CAP PO SCH (08:55)
[2021-05-05] MEDS: CHOLECALCIFEROL 125 MCG (5000 IU) TABLET PO SCH (08:55)
[2021-05-05] MEDS: ASCORBIC ACID 500 MG TAB PO SCH (08:55)
[2021-05-05] MEDS: DEXAMETHASONE SOD PHOSPHATE 10 MG/ML 1 ML VIAL IVP SCH ×2 (08:55→20:07)
[2021-05-05 11:30] LABS: Glucose,Whole Blood 91 mg/dL (75-99)
[2021-05-05] MEDS: SODIUM CHLORIDE 0.9% 500 ML 500 ML IV SCH (11:54)
[2021-05-05] MEDS: QUEtiapine 25 MG TAB PO SCH ×2 (11:55→20:07)
--- NOTE | 2021-05-05 14:03 | P.PN ---
Subjective Progress Note Date: 05/05/21 Principal diagnosis: Acute hypoxic respiration is secondary to COVID-19 pneumonia 04/28/2021, the patient is intubated on a mechanical ventilator. Family has been updated on her condition. The patient went into respiratory failure requiring intubation mechanical ventilation. 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 The patient was intubated yesterday pH is currently on assist control mode of mechanical ventilation. She is on a tidal volume of 300 with a rate of 34 and therefore it is currently at 60% with a PEEP of 18. The patient has a airway pressure of 40 anesthetic airway pressures 38. Chest x-ray from today shows some improvement in aeration bilaterally and this could be potentially a PEEP effect. ET tube is in a good location. Orogastric tube is also in a good location. The patient has a triple lumen catheter in the left subclavian vein. The patient continues to receive treatment for Covid 19. She is on a combination of sepsis Decadron 6 mg IV every 12 hours and she is also on Lovenox and she is currently on a therapeutic dose as the CT angiogram showed a questionable filling defect in the right lower lobe pulmonary artery branch. Tympanic clinic, the patient is also covered with a combination of cefepime and Levaquin. Her pro-calcitonin level was significantly elevated. I was concerned of an underlying infection and for that reason the patient was covered with broad-spectrum antibiotics. The white cell count today is at 22.9 which is still elevated. In terms of her blood gases, the pH currently is at 7.28 with a pCO2 of 92 and pO2 of 113. The patient was developing some respiratory acidosis. I added some bicarb infusion yesterday and the bicarb infusion is running at the rate of 75 mL an hour. The serum bicarbonate currently is at 41. he is hemodynamically stable. She is on no pressors. BUN 12 with a creatinine of 0.4. The LDH level from yesterday was 2908. His CRP level was 20.0. Her d-dimer came down from 34-16.5. She was started on enteral feeding for nutritional support. She is currently on vital high protein at the rate of 30 mL an hour. The fluid balance has been +1.3 L over the past 24 hours. She is afebrile. Reevaluated today on 04/29/2021, remains in the ICU intubated and mechanically ventilated. She is on assist control rate of 34 total volume 300 FiO2 50% PEEP of 16. ABG showed a pO2 of 113 pCO2 of 83 pH of 7.39, this ABG was done on 60%, patient remains on propofol at 60 mcg/kg/m, she is on fentanyl at 2.5 mcg/kg/h, she is also on Nimbex at 3 mcg/kg/m, I cut down her IV fluid D5 W with bicarb to 25 mL per hour. Patient remains on cefepime. She does have right popliteal DVT, and she will has acute pulmonary embolism involving the right lower lobe, she is on treatment for and with anticoagulation therapy. Patient is on enteral feeding using vital HP at 31/31 mL per hour. Patient is not of norepinephrine today. Her ventilator settings remained the same, no changes were made, I plan to cut down her PEEP from 16 hopefully down to 14. Electrolytes are normal ho wever her bicarb is 45 and renal profile is normal, CBC showed leukocytosis with WBC count of 16 hemoglobin is 11.1 d-dimer remains elevated at 5.07. Chest x- ray showed no significant interval change compared to the last few days, continues to have bilateral airspace disease, groundglass opacities bilaterally. Consistent with COVID-19 pneumonia. Reevaluated today on 04/30/2021, patient remains in the ICU, intubated, sedated, mechanically ventilated, paralyzed, patient is on fentanyl at 2.5 mcg/kg/h propofol at 60 mcg/kg/m Nimbex at 1.5 mcg/kg/m, she is also on bicarb drip at 25 mL per hour. Vent settings are assist control rate of 34 tidal volume 300 FiO2 60% PEEP is 16. ABG showed a pO2 of 103 pCO2 of 93 pH of 7.33 hence I cut down her FiO2 down to 50%, and advised nursing to monitor O2 saturation, and titrate the FiO2 accordingly maintaining an O2 saturation above 91%. Electrolytes are normal renal profile is normal pro-calcitonin is 0.39, slightly elevated. Blood cultures showed staph epidermidis, hence vancomycin was discontinued, and the patient remains on cefepime. Patient continues to have relatively high peak airway pressure of 57, plateau pressure is 34. Consistent with a mid 19 pneumonia and ARDS. Patient was reevaluated today on 05/01/2021, patient remains in the ICU, intubated and mechanically ventilated. She is on assist control rate of 34 tidal volume 300 FiO2 50% PEEP of 16. ABG showed a pO2 of 83 pCO2 of 90 pH of 7.35, hence I'm cutting down the PEEP from 16-14. Patient remains on tube feeding using vital HP at 31 mL per hour./goal. She is on fentanyl at 2.5 mcg/kg/hr,propofol 60 mcg/kg/m, Nimbex at 2.5 mcg/kg/m. Patient was actually intubated on 04/26, her peak airway pressure is 36 plateau pressure is 34. His ARDS. However I will try a lower PEEP today, and would consider even stopping Nimbex somewhere along the line if the patient tolerates lower PEEP. WBC count is 12.4 hemoglobin is 11, electrolytes are normal except for bicarb of 46 BUN of 18 and creatinine 0.47. Chest x-ray continues to show diffuse bilateral infiltrates with small pleural effusions. Patient was reevaluated today on 05/02/21, remains in the ICU, intubated and mechanically ventilated. Patient is presently on assist control rate of 34 tidal volume 300 FiO2 50% and PEEP was 12 and I cut it down to 10. Her ABG today showed a pO2 of 92 pCO2 of 69 pH of 7.44, patient is on bicarb drip which I have discontinued today. Remains on Nimbex which I have discontinued today, she is also on propofol at 60 mcg/kg/m, fentanyl 25 mcg/kg/h, and I have recommended that they stay at the same dose, but definitely cut down and discontinue Nimbex. Patient is on enteral feeding using vital HP at 3 1 mL per hour which is the goal. Patient is also noted to have relatively normal CBC, WBC count is 8.4 hemoglobin is 10.6. Chest x-ray is continues to show lateral infiltrates consistent with COVID-19 pneumonia, not much chemical cell changer the last few days Patient was reevaluated today on 05/03/21, remains in the ICU, intubated and mechanically ventilated. Patient is on assist control rate of 34 tidal volume 300 FiO2 of 55% PEEP at 12, FiO2 was cut down to 50%. Patient remains on propofol at 60 mcg/kg/m she is also on fentanyl 2.5 mcg/kg per hour. She has been off Nimbex since yesterday. And the plan today is to cut down on propofol and fentanyl and hopefully assess her mental status. ABG showed a pO2 of 85 pCO2 of 62 pH of 7.44. He is 8.9 hemoglobin is 10.6. Electrolytes are normal renal profile is normal. Patient remains on enteral feeding, tolerating vital HP quite well. Chest x-ray is basically the same, no major change in her bilateral infiltrates. Patient remains on GI and DVT prophylaxis, she is on Lovenox at 100 mg subcu twice a day Reevaluated today on 05/04/21, patient remains intubated and mechanically ventilated, however overall I believe the patient is demonstrating significant improvement. Her ABG looks better pO2 is 108 pCO2 64 pH of 7.42. Chest x-ray continues to show bilateral infiltrates, not much change. Remains on assist control rate of 34 tidal volume 300 FiO2 45% and PEEP is 12. I did cut down the FiO2 to 45% from 50% today, and I plan to cut down the PEEP from 12-10. Patient is still requiring fentanyl and propofol, she is on 2.5 mcg/kg/h of fentanyl and propofol at 60 mg/kg/m. My goal is to eventually switch this patient to Precedex, hold all narcotics and sedatives, and possibly address weaning. WBC count is 8 hemoglobin 10.4 lites are normal bicarb is 39 renal profile is normal. Yesterday patient was given a sedation holiday, and according to the nurse she was appropriate, and follows instructions. But was noted to be generally weak. Reevaluated today on 05/05/21, patient remains in the ICU, intubated and mechanically ventilated, however I was able to cut down her FiO2 to 55%, and her rate is 34 tidal volume 300 PEEP is at 12. Patient is off paralytics, she is only on propofol at 50 and fentanyl at 2.5 mcg/kg per hour. Patient had a sedation holiday yesterday, and according to the nurse she was very appropriate, followed all instructions. But she was agitated and restless, had to be placed back on propofol and fentanyl, and remains on same dose since yesterday. Today I recommended another sedation holiday, I recommended titrating the FiO2 accordingly, patient is also on enteral feeding using HP at 21 mL per hour. She seems to be arousable spite of sedation, but does not follow any instructions. ABG today showed a pO2 of 57 pCO2 of 63, pH of 7.41. Remains very marginal at best. Basic metabolic profile is normal bicarb is 37 renal profile is normal, WBC count is 5.5 hemoglobin is 10.5. Chest x-ray continues to show bilateral airspace disease, consistent with COVID-19 pneumonia, not much improvement noted on the chest x-ray Objective - Vital Signs Vital signs: Vital Signs Temp 97.8 F 05/05/21 12:00 Pulse 75 05/05/21 13:00 Resp 34 H 05/05/21 13:00 BP 131/69 05/05/21 12:00 Pulse Ox 98 05/05/21 13:00 Intake & Output 05/04/21 05/05/21 05/05/21 18:59 06:59 18:59 Intake Total 3156.007 8989.123 1006.140 Output Total 2450 1900 520 Balance -1282.000 -893.877 486.140 Weight 113.8 kg Intake: IV 376 336 261 Cefepime 2 gm In Sodium 100 100 100 Chloride 0.9% 100 ml @ 25 mls/hr IVPB Q8HR [facility] Rx# :[id number] Pressure Bag 36 36 21 Sodium Chloride 0.9% 1, 240 200 140 000 ml @ 20 mls/hr IV . Q24H [facility] Rx#:[id number] Intake, IV Titration 450.000 523.123 509.140 Amount fentaNYL (PF) 2,500 mcg 250.000 242.323 348.231 In Sodium Chloride 0.9% 200 ml @ 0.5 MCG/KG/HR 5. 23 mls/hr IV .Q24H [facility] Rx #:[id number] propofoL 1,000 mg In 200 280.8 160.909 Empty Bag 1 bag @ Titrate IV .Q0M [facility] Rx#: [id number] Tube Feeding 252 147 126 Other 90 110 Output: Urine 2450 1900 520 Other: Voiding Method Indwelling Catheter Indwelling Catheter Indwelling Catheter ABP, PAP, CO, CI - Last Documented Arterial Blood Pressure 112/58 - Exam Physical Exam revealed a 46-year-old -[place] female, intubated, mechanically ventilated sedated. But not paralyzed. Head: Atraumatic, normocephalic, orogastric tube and endotracheal tube are intact. HEENT:[Neck is supple.] [No neck masses.] [No thyromegaly.] [No JVD.] No adenopathy is appreciated. Chest: [Fine crackles at the bases symmetrical chest expansion. Cardiac Exam: [Normal S1 and S2, no S3 gallop, no murmur.] Abdomen: [Soft, nontender, no megaly, no rebound, no guarding, normal bowel sounds.] Extremities: [No clubbing, no edema, no cyanosis.] Good pulses bilaterally. Neurological Exam: Patient is sedated , arousable, but does not follow instructions. Psychiatric: Could not assess - Labs CBC & Chem 7: 05/05/21 04:00 05/05/21 04:00 Labs: Abnormal Lab Results - Last 24 Hours (Table) 05/04/21 05/05/21 05/05/21 Range/Units 23:41 04:00 04:00 RBC 3.32 L (3.80-5.40) m/uL Hgb 10.5 L (11.4-16.0) gm/dL Hct 32.7 L (34.0-46.0) % ABG pCO2 (35-45) mmHg ABG pO2 (83-108) mmHg ABG HCO3 (21-25) mmol/L ABG Total CO2 (19-24) mmol/L ABG O2 Saturation (94-97) % Carbon Dioxide 37 H (22-30) mmol/L Creatinine 0.39 L (0.52-1.04) mg/dL Glucose 109 H (74-99) mg/dL POC Glucose (mg/dL) 104 H (75-99) mg/dL AST 83 H (14-36) U/L ALT 140 H (4-34) U/L Total Protein 5.8 L (6.3-8.2) g/dL Albumin 2.6 L (3.5-5.0) g/dL 05/05/21 Range/Units 06:00 RBC (3.80-5.40) m/uL Hgb (11.4-16.0) gm/dL Hct (34.0-46.0) % ABG pCO2 63 H (35-45) mmHg ABG pO2 57 L* (83-108) mmHg ABG HCO3 40 H* (21-25) mmol/L ABG Total CO2 42 H (19-24) mmol/L ABG O2 Saturation 88.8 L (94-97) % Carbon Dioxide (22-30) mmol/L Creatinine (0.52-1.04) mg/dL Glucose (74-99) mg/dL POC Glucose (mg/dL) (75-99) mg/dL AST (14-36) U/L ALT (4-34) U/L Total Protein (6.3-8.2) g/dL Albumin (3.5-5.0) g/dL Microbiology - Last 24 Hours (Table) 04/30/21 08:10 Blood Culture - Preliminary Blood No Growth after 120 hours 05/02/21 23:32 Gram Stain - Final Sputum Sputum Culture - Final Assessment and Plan Assessment: Impression: Acute hypoxic respiratory failure secondary to COVID-19 pneumonia, patient is not vaccinated. Diagnosed initially on 04/13/2021, hospitalized and discharged home on 04/18, readmitted and intubated on 04/27/2021, remains intubated and mechanically ventilated. Initially placed on Baricitinib which was discontinued because of concern of infection and elevated pro calcitonin. Patient is on therapeutic Lovenox because of abnormal venous Doppler and abnormal CT angiogram of the chest. Acute right lower lobe pulmonary embolism Acute respiratory acidosis History of hypothyroidism History of marijuana smoking Recommendation: Continue ventilatory support, remains on relatively high FiO2 of 55%, PEEP is at 12, ABG is marginal. Cut down on sedation, assess mental status again today. Continue anticoagulation therapy. Continue therapeutic Lovenox. Continue Levaquin and cefepime Continue COVID-19 cocktail. Continue to monitor daily x-rays and daily inflammatory markers. Continue enteral feeding Continue GI prophylaxis Patient remains critically ill. I have a feeling most likely the patient is going to require tracheostomy and PEG tube placement. Patient was intubated on 04/27, and she is having almost in to her temp today of intubation and mechanical ventilation. May have to consult surgery in a.m. to evaluate for possible tracheostomy and PEG tube placement. Especially if no significant improvement is noted in the next 24 hours. Critical care time is over 30 minutes. We'll continue to follow while in ICU. Time with Patient: Greater than 30
--- NOTE | 2021-05-05 16:31 | P.PN ---
Subjective Progress Note Date: 05/05/21 Principal diagnosis: Pneumonia and bacteremia Interval history : Patient is a 46-year-old -[place] Citizen female with admission diagnoses: Acute COVID-19 pneumonia subsequently admission to the hospital with worsening respiratory status has been diagnosed with a DVT and PE. On today's evaluation that is 05/05/2021, The patient continues to be afebrile, the patient is hemodynamically stable not requiring any pressor support , the patient FiO2 is currently at 50%, no significant purulent secretion through the ET has been reported by the nursing staff, patient has been tolerating tube feeds and no diarrhea has been reported, no other changes Objective - Vital Signs Vital signs: Vital Signs Temp 97.7 F 05/05/21 16:00 Pulse 58 L 05/05/21 16:00 Resp 34 H 05/05/21 16:00 BP 131/69 05/05/21 12:00 Pulse Ox 100 05/05/21 16:00 Intake & Output 05/04/21 05/05/21 05/05/21 18:59 06:59 18:59 Intake Total 8611.566 5508.123 1368.140 Output Total 2450 1900 1295 Balance -1282.000 -893.877 73.140 Weight 113.8 kg Intake: IV 376 336 430 Cefepime 2 gm In Sodium 100 100 200 Chloride 0.9% 100 ml @ 25 mls/hr IVPB Q8HR [facility] Rx# :[id number] Pressure Bag 36 36 30 Sodium Chloride 0.9% 1, 240 200 200 000 ml @ 20 mls/hr IV . Q24H [facility] Rx#:[id number] Intake, IV Titration 450.000 523.123 609.140 Amount fentaNYL (PF) 2,500 mcg 250.000 242.323 348.231 In Sodium Chloride 0.9% 200 ml @ 0.5 MCG/KG/HR 5. 23 mls/hr IV .Q24H [facility] Rx #:[id number] propofoL 1,000 mg In 200 280.8 260.909 Empty Bag 1 bag @ Titrate IV .Q0M [facility] Rx#: [id number] Tube Feeding 252 147 189 Other 90 140 Output: Urine 2450 1900 1295 Other: Voiding Method Indwelling Catheter Indwelling Catheter Indwelling Catheter ABP, PAP, CO, CI - Last Documented Arterial Blood Pressure 115/59 - Exam GENERAL DESCRIPTION: Middle-aged female intubated on the vent RESPIRATORY SYSTEM: Unlabored breathing , decreased breath sounds at bases HEART: S1 S2 regular rate and rhythm ,no loud murmurs ABDOMEN: Soft , no tenderness EXTREMITIES: No edema feet - Labs CBC & Chem 7: 05/05/21 04:00 05/05/21 04:00 Labs: Abnormal Lab Results - Last 24 Hours (Table) 05/04/21 05/05/21 05/05/21 Range/Units 23:41 04:00 04:00 RBC 3.32 L (3.80-5.40) m/uL Hgb 10.5 L (11.4-16.0) gm/dL Hct 32.7 L (34.0-46.0) % ABG pCO2 (35-45) mmHg ABG pO2 (83-108) mmHg ABG HCO3 (21-25) mmol/L ABG Total CO2 (19-24) mmol/L ABG O2 Saturation (94-97) % Carbon Dioxide 37 H (22-30) mmol/L Creatinine 0.39 L (0.52-1.04) mg/dL Glucose 109 H (74-99) mg/dL POC Glucose (mg/dL) 104 H (75-99) mg/dL AST 83 H (14-36) U/L ALT 140 H (4-34) U/L Total Protein 5.8 L (6.3-8.2) g/dL Albumin 2.6 L (3.5-5.0) g/dL 05/05/21 Range/Units 06:00 RBC (3.80-5.40) m/uL Hgb (11.4-16.0) gm/dL Hct (34.0-46.0) % ABG pCO2 63 H (35-45) mmHg ABG pO2 57 L* (83-108) mmHg ABG HCO3 40 H* (21-25) mmol/L ABG Total CO2 42 H (19-24) mmol/L ABG O2 Saturation 88.8 L (94-97) % Carbon Dioxide (22-30) mmol/L Creatinine (0.52-1.04) mg/dL Glucose (74-99) mg/dL POC Glucose (mg/dL) (75-99) mg/dL AST (14-36) U/L ALT (4-34) U/L Total Protein (6.3-8.2) g/dL Albumin (3.5-5.0) g/dL Microbiology - Last 24 Hours (Table) 04/30/21 08:10 Blood Culture - Preliminary Blood No Growth after 120 hours 05/02/21 23:32 Gram Stain - Final Sputum Sputum Culture - Final Assessment and Plan (1) Positive blood culture Current Visit: Yes Status: Acute Code(s): R78.81 - BACTEREMIA SNOMED C ode(s): 213243886 (2) COVID-19 Current Visit: Yes Status: Acute Code(s): U07.1 - COVID-19 SNOMED Code(s): 326371065 Plan: 1-patient with a positive blood culture which has been finalized and staph epi likely skin contaminant vancomycin discontinued, Repeat blood culture has been negative so far, we will monitor patient closely off vancomycin 2-acute respiratory failure which is multifactorial possible component of pneumonia, Sputum has been usual respiratory pat White count is normal, the patient to continue with cefepime and monitor clinical course closely, son at the bedside questions were answered Time with Patient: Less than 30
[2021-05-05 17:48] LABS: Glucose,Whole Blood 88 mg/dL (75-99)
[2021-05-05 23:50] LABS: Glucose,Whole Blood 100 mg/dL (75-99)
[2021-05-06] MEDS: INSULIN ASPART (NovoLOG) 100 UNIT/ML VIAL SQ SCH ×4 (01:16→17:49)
[2021-05-06] MEDS: CEFEPIME 2 GM in SODIUM CHLORIDE 0.9% 100 ML IVPB SCH ×3 (01:18→16:30)
[2021-05-06] MEDS: NOREPINEPHRINE 8 MG in SODIUM CHLORIDE 0.9% 250 ML IV SCH (03:59)
[2021-05-06] MEDS: fentaNYL (PF) 2,500 MCG in SODIUM CHLORIDE 0.9% 200 ML IV SCH ×2 (04:30→16:27)
[2021-05-06 04:33] LABS: Basophils % (A) 0 %; Eosinophils # (A) 0.1 k/uL (0-0.7); Eosinophils % (A) 1 %; HCT 37.9 % (34.0-46.0); HGB 11.9 gm/dL (11.4-16.0); Lymphocytes # (A) 0.9 k/uL (1.0-4.8); Lymphocytes % (A) 11 %; MCHC 31.4 g/dL (31.0-37.0); MCV 98.7 fL (80.0-100.0); Mean Platelet Volume 9.1; Monocytes # (A) 0.4 k/uL (0-1.0); Monocytes % (A) 5 %; Neutrophils # (A) 6.8 k/uL (1.3-7.7); Neutrophils % (A) 83 %; Platelet Count 412 k/uL (150-450); RBC 3.84 m/uL (3.80-5.40); RDW 13.8 % (11.5-15.5); WBC 8.3 k/uL (3.8-10.6)
[2021-05-06 04:54] LABS: ALT 146 U/L (4-34); AST 70 U/L (14-36); African American GFR (CKD) >90 (>60 ml/min/1.73 sqM); Albumin 2.9 g/dL (3.5-5.0); Alkaline Phosphatase 82 U/L (38-126); Anion Gap -1 mmol/L; Blood Urea Nitrogen 17 mg/dL (7-17); Calcium 8.9 mg/dL (8.4-10.2); Carbon Dioxide 38 mmol/L (22-30); Chloride 103 mmol/L (98-107); Glucose 128 mg/dL (74-99); Non-African American GFR(CKD) >90 (>60 ml/min/1.73 sqM); Potassium 4.2 mmol/L (3.5-5.1); Sodium 140 mmol/L (137-145); Total Bilirubin 0.6 mg/dL (0.2-1.3); Total Protein 6.4 g/dL (6.3-8.2)
[2021-05-06 05:21] LABS: ABG Base Excess 13.4 mmol/L; ABG HCO3 38 mmol/L (21-25); ABG Oxygen Saturation 96.3 % (94-97); ABG PCO2 61 mmHg (35-45); ABG PO2 85 mmHg (83-108); ABG TCO2 40 mmol/L (19-24); Allen Test Performed? Yes
[2021-05-06 05:38] LABS: Glucose,Whole Blood 86 mg/dL (75-99)
[2021-05-06] MEDS: LEVOTHYROXINE 112 MCG TAB PO SCH (07:19)
[2021-05-06] MEDS: QUEtiapine 25 MG TAB PO SCH ×2 (08:19→20:53)
[2021-05-06] MEDS: ASCORBIC ACID 500 MG TAB PO SCH (08:19)
[2021-05-06] MEDS: CHOLECALCIFEROL 125 MCG (5000 IU) TABLET PO SCH (08:20)
[2021-05-06] MEDS: CHLORHEXIDINE GLUCONATE 15 ML CUP MUCOUS MEM SCH ×2 (08:20→20:53)
[2021-05-06] MEDS: ENOXAPARIN 100 MG/ML SYRINGE SQ SCH ×2 (08:20→20:53)
[2021-05-06] MEDS: ZINC SULFATE 220 MG CAP PO SCH (08:20)
[2021-05-06] MEDS: PANTOPRAZOLE 40 MG/10 ML VIAL IVP SCH (08:20)
[2021-05-06] MEDS: DEXAMETHASONE SOD PHOSPHATE 10 MG/ML 1 ML VIAL IVP SCH ×2 (08:20→20:53)
[2021-05-06] MEDS: ALBUTEROL HFA INHALER INHALATION SCH ×4 (08:50→20:17)
[2021-05-06] MEDS: SYMBICORT 160-4.5 MCG INHALER INHALATION SCH (08:50)
--- NOTE | 2021-05-06 09:39 | XR ---
EXAMINATION TYPE: XR chest 1V portable DATE OF EXAM: 05/06/2021 COMPARISON: 05/05/2021 HISTORY: Shortness of breath TECHNIQUE: Single frontal view of the chest is obtained. FINDINGS: ET and NG tube noted and there is diffuse bilateral infiltrate and small effusions. No pne umothorax. Heart size normal. Changes of calcific tendinosis of the right shoulder. IMPRESSION: Diffuse bilateral infiltrate and pleural effusion stable
[2021-05-06 11:41] LABS: Glucose,Whole Blood 92 mg/dL (75-99)
--- NOTE | 2021-05-06 12:24 | P.PN ---
Subjective Progress Note Date: 05/06/21 Principal diagnosis: Acute COVID-19 pneumonia On 05/06/2021 patient seen in follow-up in the intensive care unit. Patient remains intubated, sedated on assist control mode of ventilation with a rate of 34, tidal [id number], FiO2 50% and PEEP of 12, this was blood gas shows pO2 of 85, pCO2 of 61, and pH of 7.40, and this was done and above-mentioned ventilator settings, patient is sedated with Diprivan and a 60 mics per kilo per minute, and fentanyl at 2.0 mics per kilo per minute, 0.9 normal saline at a rate of 20 ML per hour. She is receiving tube feedings with vital HP at a rate of 21 with a goal of 21, and standard water flushes, today's chest x-ray shows diffuse bi lateral infiltrates and pleural effusions are stable in appearance. Patient currently remains on dexamethasone 6 mg every 12 hours, she is on prophylactic dose of Lovenox 100 mg twice daily, she is on Seroquel 25 mg twice daily, she is on multivitamins, she is on cefepime for antibiotic coverage and Ventolin and Symbicort. Patient's blood culture from 04/27/2021 showed staph epidermidis likely skin contaminant, follow blood culture and sputum cultures have shown no growth, urine culture was also negative. Hemodynamically patient has remained stable, no vasopressor support. She is in sinus mechanism. She has been afebrile. She is tolerating her tube feedings. His labs have been reviewed, white blood cell count is 8.3, hemoglobin is 11.9, sodium is 140, potassium 4.2, chloride is 103, CO2 38, B1 17, creatinine 0.50, AST was 70, improved value, and ALT was 146, fairly stable, alk phos was within normal limits. Her inflammatory markers were improving on the labs from 04/29/2021. Her d-dimer was also improving and was down to 5.07. Her lower extremity Doppler showed a DVT in the right popliteal vein. Patient also had a questionable right lower lobe PE involving subsegmental branches the initial CT angiogram of the chest from 04/24/2021. Objective - Vital Signs Vital signs: Vital Signs Temp 98.3 F 05/06/21 08:00 Pulse 73 05/06/21 11:00 Resp 32 H 05/06/21 11:00 BP 131/69 05/06/21 11:00 Pulse Ox 100 05/06/21 11:00 Intake & Output 05/05/21 05/06/21 05/06/21 18:59 06:59 18:59 Intake Total 3054.406 2966.037 558.684 Output Total 1670 1550 400 Balance 6.584 -126.963 158.684 Weight 112.7 kg Intake: IV 476 299 169 Cefepime 2 gm In Sodium 200 100 Chloride 0.9% 100 ml @ 25 mls/hr IVPB Q8HR [facility] Rx# :[id number] Pressure Bag 36 39 9 Sodium Chloride 0.9% 1, 240 260 60 000 ml @ 20 mls/hr IV . Q24H [facility] Rx#:[id number] Intake, IV Titration 829.584 761.037 196.684 Amount Norepinephrine 8 mg In 237.813 Sodium Chloride 0.9% 250 ml @ 0.05 MCG/KG/MIN 10. 094 mls/hr IV .Q24H [facility] Rx#:[id number] fentaNYL (PF) 2,500 mcg 470.264 238.488 In Sodium Chloride 0.9% 200 ml @ 0.5 MCG/KG/HR 5. 23 mls/hr IV .Q24H [facility] Rx #:[id number] propofoL 1,000 mg In 359.320 284.736 196.684 Empty Bag 1 bag @ Titrate IV .Q0M [facility] Rx#: [id number] Tube Feeding 231 273 63 Other 140 90 130 Output: Urine 1670 1550 400 Other: Voiding Method Indwelling Catheter Indwelling Catheter Indwelling Catheter ABP, PAP, CO, CI - Last Documented Arterial Blood Pressure 108/55 - Exam GENERAL EXAM: Today, and intubated, 46-year-old female, on assist-control mode of ventilation with a rate of 34, tidal volume is 300, FiO2 of 50% and PEEP of 12, sedated with Diprivan at 60 mics per kilo per minute, and Fentanyl infusion at 2 mics per kilo per minute, currently not on any paralytics comfortable in no apparent distress. HEAD: Normocephalic/atraumatic. EYES: Normal reaction of pupils, equal size. Conjunctiva pink, sclera white. NOSE: Clear with pink turbinates. THROAT: No erythema or exudates. NECK: No masses, no JVD, no thyroid enlargement, no adenopathy. CHEST: No chest wall deformity. Symmetrical expansion. LUNGS: Equal air entry with no crackles, wheeze, rhonchi or dullness. CVS: Regular rate and rhythm, normal S1 and S2, no gallops, no murmurs, no rubs ABDOMEN: Soft, nontender. No hepatosplenomegaly, normal bowel sounds, no guarding or rigidity. EXTREMITIES: No clubbing, no edema, no cyanosis, 2+ pulses and upper and lower extremities. MUSCULOSKELETAL: Muscle strength and tone normal. SPINE: No scoliosis or deformity SKIN: No rashes CENTRAL NERVOUS SYSTEM: Intubated and sedated. No focal deficits, tone is normal in all 4 extremities. - Labs CBC & Chem 7: 05/06/21 04:15 05/06/21 04:15 Labs: Abnormal Lab Results - Last 24 Hours (Table) 05/05/21 05/06/21 05/06/21 Range/Units 23:48 04:15 04:15 Lymphocytes # 0.9 L (1.0-4.8) k/uL ABG pCO2 (35-45) mmHg ABG HCO3 (21-25) mmol/L ABG Total CO2 (19-24) mmol/L Carbon Dioxide 38 H (22-30) mmol/L Creatinine 0.50 L (0.52-1.04) mg/dL Glucose 128 H (74-99) mg/dL POC Glucose (mg/dL) 100 H (75-99) mg/dL AST 70 H (14-36) U/L ALT 146 H (4-34) U/L Albumin 2.9 L (3.5-5.0) g/dL 05/06/21 Range/Units 05:18 Lymphocytes # (1.0-4.8) k/uL ABG pCO2 61 H (35-45) mmHg ABG HCO3 38 H (21-25) mmol/L ABG Total CO2 40 H (19-24) mmol/L Carbon Dioxide (22-30) mmol/L Creatinine (0.52-1.04) mg/dL Glucose (74-99) mg/dL POC Glucose (mg/dL) (75-99) mg/dL AST (14-36) U/L ALT (4-34) U/L Albumin (3.5-5.0) g/dL Microbiology - Last 24 Hours (Table) 04/30/21 08:10 Blood Culture - Final Blood No Growth after 144 hours 05/02/21 23:32 Gram Stain - Final Sputum Sputum Culture - Final Assessment and Plan Plan: Assessment: #1. Acute hypoxic respiratory failure secondary to COVID-19 pneumonia. Patient is a non-vaccinated adult. Initial diagnosis was established on 04/13/2021, patient was hospitalized and discharged home on 04/18/2021, readmitted with worsening hypoxia and dyspnea, and intubated on 04/27/2021. She remains intubated and mechanically ventilated today on 05/06/2021. Patient was initially placed on Baricitinib which was discontinued because of concern of infection related to mildly elevated pro calcitonin. Currently pro calcitonin level is improved, patient remains on cefepime for empiric antibiotic coverage with no positive bacterial growth on cultures except for staph epidermidis on blood culture which is likely skin contamination #2. Acute right lower lobe pulmonary embolism and right popliteal DVT, currently on therapeutic dose of Lovenox 100 mg twice daily #3. Acute respiratory acidosis, improved, compensated #4. History of hypothyroidism #5. History of marijuana smoking Plan: Give the patient a sedation holiday Assess mental status Continue same mode of ventilation, no changes Continue Decadron, continue therapeutic anticoagulation Continue multivitamins and nutritional support We'll obtain follow-up pro calcitonin level, follow-up LDH, CRP, CBC and CMP Follow-up ABG and chest x-ray in the morning Consult surgery for placement of tracheostomy and PEG tube We'll continue to closely follow her progress in the ICU I performed a history & physical examination of the patient and discussed their management with my nurse practitioner, Maribeth Pereira. I reviewed the nurse practitioner's note and agree with the documented findings and plan of care. Lung sounds are positive for dim breath sounds throughout the lung tai. The findings and the impression was discussed with the patient. I attest to the documentation by the nurse practitioner. Time with Patient: Greater than 30
[2021-05-06] MEDS: SODIUM CHLORIDE 0.9% 500 ML 500 ML IV SCH (12:48)
--- NOTE | 2021-05-06 14:00 | P.GSCN ---
History of Present Illness Consult date: 05/06/21 History of present illness: CHIEF COMPLAINT: COVID-19 pneumonia HISTORY OF PRESENT ILLNESS: This is a 46-year-old female who presented with worsening shortness of breath. She was diagnosed with Covid on April 13 patient was hospitalized this and discharged home on 04/18/2021. She required to be readmitted due to dyspnea with shortness of breath. And was intubated on 04/27/2021. Patient remains in the ICU and on mechanical ventilation. She is sedated. She also has evidence of right lower lobe pulmonary embolism and right lower extremity DVT. She is maintained on Lovenox 100 mg twice daily. Surgical service is consulted for tracheostomy and PEG tube placement PAST MEDICAL HISTORY: GERD hypothyroidism PAST SURGICAL HISTORY: Thyroidectomy, partial hysterectomy MEDICATIONS: See list. ALLERGIES: See list. SOCIAL HISTORY: No illicit drug use. REVIEW OF SYSTEMS: Unable to obtain. Patient intubated and sedated PHYSICAL EXAM: VITAL SIGNS: Reviewed GENERAL: no acute distress. HEENT: Moist buccal mucosa. Head is atraumatic, normocephalic. No nasal drainage. ABDOMEN: Soft. Nondistended. NEUROLOGIC: Intubated and sedated LABORATORY DATA: WBC is 8.3 hemoglobin is 11.9 platelets 412 Sodium 140 potassium 4.2 creatinine 0.50 Glucose 128 AST 70 ALT 146 Albumin 2.9 IMAGING: ASSESSMENT: 1. Acute hypoxic respiratory failure secondary to COVID-19 pneumonia. 2. Severe Protein calorie malnutrition 3. Right lower lobe pulmonary embolism and right leg DVT PLAN: -Patient scheduled for tracheostomy and PEG tube placement tomorrow 05/07/[address] Peña -Hold tube feedings after midnight -Hold tonights and tomorrow morning dose of Lovenox Thank you for this consultation Physician Design Engineering Manager note has been reviewed by physician. Signing provider agrees with the documented findings, assessment, and plan of care. Past Medical History Past Medical History: GERD/Reflux, Pneumonia (COVID 19 infection on 04/11/2021), Thyroid Disorder Additional Past Medical History / Comment(s): overactive bladder History of Any Multi-Drug Resistant Organisms: None Reported Past Surgical History: Hysterectomy Additional Past Surgical History / Comment(s): partial hysterectomy, 09/11/14 thyroid removal Past Anesthesia/Blood Transfusion Reactions: No Reported Reaction Past Psychological History: Anxiety Smoking Status: Never smoker Past Alcohol Use History: Occasional Past Drug Use History: Marijuana Additional Drug Use History / Comment(s): occassional use of marijuana per pt - Past Family History Mother Family Medical History: Cancer, Hypertension Additional Family Medical History / Comment(s): colon cancer. maternal aunt with breast cancer age 40 Sister(s) Family Medical History: Cancer Additional Family Medical History / Comment(s): breast cancer age 49 Father Family Medical History: Hypertension Additional Family Medical History / Comment(s): paternal gradmother breast cancer age 80 Medications and Allergies Home Medications Medication Instructions Recorded Confirmed Type Levothyroxine Sodium [Synthroid] 112 mcg PO DAILY 04/13/21 04/20/21 History predniSONE 50 mg PO DAILY #5 tab 04/21/21 Rx Allergies Allergy/AdvReac Type Severity Reaction Status Date / Time No Known Allergies Allergy Verified 04/20/21 23:23 Surgical - Exam Vital Signs Temp Pulse Resp BP Pulse Ox 100.7 F H 121 H 24 118/107 87 L 04/20/21 22:34 04/20/21 22:34 04/20/21 22:34 04/20/21 22:34 04/20/21 22:34 Results - Labs 05/06/21 04:15 05/06/21 04:15 Abnormal Lab Results - Last 24 Hours (Table) 05/05/21 05/06/21 05/06/21 Range/Units 23:48 04:15 04:15 Lymphocytes # 0.9 L (1.0-4.8) k/uL ABG pCO2 (35-45) mmHg ABG HCO3 (21-25) mmol/L ABG Total CO2 (19-24) mmol/L Carbon Dioxide 38 H (22-30) mmol/L Creatinine 0.50 L (0.52-1.04) mg/dL Glucose 128 H (74-99) mg/dL POC Glucose (mg/dL) 100 H (75-99) mg/dL AST 70 H (14-36) U/L ALT 146 H (4-34) U/L Albumin 2.9 L (3.5-5.0) g/dL 05/06/21 Range/Units 05:18 Lymphocytes # (1.0-4.8) k/uL ABG pCO2 61 H (35-45) mmHg ABG HCO3 38 H (21-25) mmol/L ABG Total CO2 40 H (19-24) mmol/L Carbon Dioxide (22-30) mmol/L Creatinine (0.52-1.04) mg/dL Glucose (74-99) mg/dL POC Glucose (mg/dL) (75-99) mg/dL AST (14-36) U/L ALT (4-34) U/L Albumin (3.5-5.0) g/dL Microbiology - Last 24 Hours (Table) 04/30/21 08:10 Blood Culture - Final Blood No Growth after 144 hours 05/02/21 23:32 Gram Stain - Final Sputum Sputum Culture - Final Diabetes panel 05/06/21 Range/Units 04:15 Sodium 140 (137-145) mmol/L Potassium 4.2 (3.5-5.1) mmol/L Chloride 103 (98-107) mmol/L Carbon Dioxide 38 H (22-30) mmol/L BUN 17 (7-17) mg/dL Creatinine 0.50 L (0.52-1.04) mg/dL Glucose 128 H (74-99) mg/dL Calcium 8.9 (8.4-10.2) mg/dL AST 70 H (14-36) U/L ALT 146 H (4-34) U/L Alkaline Phosphatase 82 (38-126) U/L Total Protein 6.4 (6.3-8.2) g/dL Albumin 2.9 L (3.5-5.0) g/dL Calcium panel 05/06/21 Range/Units 04:15 Calcium 8.9 (8.4-10.2) mg/dL Albumin 2.9 L (3.5-5.0) g/dL Pituitary panel 05/06/21 Range/Units 04:15 Sodium 140 (137-145) mmol/L Potassium 4.2 (3.5-5.1) mmol/L Chloride 103 (98-107) mmol/L Carbon Dioxide 38 H (22-30) mmol/L BUN 17 (7-17) mg/dL Creatinine 0.50 L (0.52-1.04) mg/dL Glucose 128 H (74-99) mg/dL Calcium 8.9 (8.4-10.2) mg/dL Adrenal panel 05/06/21 Range/Units 04:15 Sodium 140 (137-145) mmol/L Potassium 4.2 (3.5-5.1) mmol/L Chloride 103 (98-107) mmol/L Carbon Dioxide 38 H (22-30) mmol/L BUN 17 (7-17) mg/dL Creatinine 0.50 L (0.52-1.04) mg/dL Glucose 128 H (74-99) mg/dL Calcium 8.9 (8.4-10.2) mg/dL Total Bilirubin 0.6 (0.2-1.3) mg/dL AST 70 H (14-36) U/L ALT 146 H (4-34) U/L Alkaline Phosphatase 82 (38-126) U/L Total Protein 6.4 (6.3-8.2) g/dL Albumin 2.9 L (3.5-5.0) g/dL
[2021-05-06 17:51] LABS: Glucose,Whole Blood 92 mg/dL (75-99)
--- NOTE | 2021-05-06 19:02 | PN ---
PROGRESS NOTE DATE OF SERVICE: 05/03/2021 CHIEF COMPLAINT: COVID pneumonia and respiratory failure. HISTORY OF PRESENT ILLNESS: There has been no change in this lady's condition in the last 24 hours. Vital signs remain normal and she is still dependent on the ventilator. Pulse ox is well maintained in the 90s. PHYSICAL EXAM: There is no change. Breath sounds are heard bilaterally and the cardiac exam is normal. IMPRESSION: 1. COVID pneumonia. 2. Respiratory failure. PLAN: No change in management from my perspective. MMODL / IJN: [id number] /
--- NOTE | 2021-05-06 19:48 | PN ---
PROGRESS NOTE DATE OF SERVICE: 05/02/2021 CHIEF COMPLAINT: Respiratory failure secondary to COVID pneumonia. HISTORY OF PRESENT ILLNESS: The patient remains ventilator-dependent. There essentially no change in her chest x- ray. Vital signs have been normal. PHYSICAL EXAMINATION: Vital signs are normal. She has good breath sounds bilaterally. Cardiac exam is normal. The abdomen is soft. IMPRESSION: COVID pneumonia with respiratory failure and ventilator dependency. PLAN: Continue to follow with Pulmonology and Infectious Disease. MMODL / IJN: [id number] /
--- NOTE | 2021-05-06 19:54 | PN ---
PROGRESS NOTE DATE OF SERVICE: 05/01/2021 CHIEF COMPLAINT: COVID pneumonia. HISTORY OF PRESENT ILLNESS: The patient remains ventilator-dependent with no significant change or improvement. Blood sugars are slightly elevated, but other parameters are under recently good control. Pulse ox is running in the mid 90s. PHYSICAL EXAM: Her vital signs are normal. Chest reveals breath sounds bilaterally. IMPRESSION: COVID pneumonia with respiratory failure and ventilator dependency. PLAN: Continue to follow with Pulmonology and Infectious Disease. Prognosis is poor. MMODL / IJN: [id number] /
--- NOTE | 2021-05-06 21:30 | P.PN ---
Subjective Progress Note Date: 05/06/21 Principal diagnosis: Pneumonia and bacteremia Interval history : Patient is a 46-year-old -[place] female with admission diagnoses: Acute COVID-19 pneumonia subsequently admission to the hospital with worsening respiratory status has been diagnosed with a DVT and PE. On today's evaluation that is 05/06/2021, The patient remains to be afebrile, the patient is hemodynamically stable not requiring any pressor support , the patient FiO2 is currently stable at 50%, no significant purulent secretion through the ET has been reported by the nursing staff, patient has been tolerating tube feeds and no diarrhea has been reported, possible plan for trach and PEG as the patient can be weaned off the vent Objective - Vital Signs Vital signs: Vital Signs Temp 98.4 F 05/06/21 20:00 Pulse 99 05/06/21 21:00 Resp 31 H 05/06/21 21:00 BP 131/69 05/06/21 19:00 Pulse Ox 99 05/06/21 21:00 Intake & Output 05/06/21 05/06/21 05/07/21 06:59 18:59 06:59 Intake Total 3333.912 3063.240 44 Output Total 1550 1040 70 Balance -126.963 360.240 -26 Weight 112.7 kg 112.7 kg Intake: IV 299 353 23 Cefepime 2 gm In Sodium 100 Chloride 0.9% 100 ml @ 25 mls/hr IVPB Q8HR [facility] Rx# :[id number] Pressure Bag 39 33 3 Sodium Chloride 0.9% 1, 260 220 20 000 ml @ 20 mls/hr IV . Q24H [facility] Rx#:[id number] Intake, IV Titration 761.037 626.240 Amount Norepinephrine 8 mg In 237.813 Sodium Chloride 0.9% 250 ml @ 0.05 MCG/KG/MIN 10. 094 mls/hr IV .Q24H [facility] Rx#:[id number] fentaNYL (PF) 2,500 mcg 238.488 250.000 In Sodium Chloride 0.9% 200 ml @ 0.5 MCG/KG/HR 5. 23 mls/hr IV .Q24H [facility] Rx #:[id number] propofoL 1,000 mg In 284.736 376.240 Empty Bag 1 bag @ Titrate IV .Q0M [facility] Rx#: [id number] Tube Feeding 273 231 21 Other 90 190 Output: Urine 1550 1040 70 Other: Voiding Method Indwelling Catheter Indwelling Catheter Indwelling Catheter ABP, PAP, CO, CI - Last Documented Arterial Blood Pressure 111/50 - Exam GENERAL DESCRIPTION: Middle-aged female intubated on the vent RESPIRATORY SYSTEM: Unlabored breathing , decreased breath sounds at bases HEART: S1 S2 regular rate and rhythm ,no loud murmurs ABDOMEN: Soft , no tenderness EXTREMITIES: No edema feet - Labs CBC & Chem 7: 05/06/21 04:15 05/06/21 04:15 Labs: Abnormal Lab Results - Last 24 Hours (Table) 05/05/21 05/06/21 05/06/21 Range/Units 23:48 04:15 04:15 Lymphocytes # 0.9 L (1.0-4.8) k/uL ABG pCO2 (35-45) mmHg ABG HCO3 (21-25) mmol/L ABG Total CO2 (19-24) mmol/L Carbon Dioxide 38 H (22-30) mmol/L Creatinine 0.50 L (0.52-1.04) mg/dL Glucose 128 H (74-99) mg/dL POC Glucose (mg/dL) 100 H (75-99) mg/dL AST 70 H (14-36) U/L ALT 146 H (4-34) U/L Albumin 2.9 L (3.5-5.0) g/dL 05/06/21 Range/Units 05:18 Lymphocytes # (1.0-4.8) k/uL ABG pCO2 61 H (35-45) mmHg ABG HCO3 38 H (21-25) mmol/L ABG Total CO2 40 H (19-24) mmol/L Carbon Dioxide (22-30) mmol/L Creatinine (0.52-1.04) mg/dL Glucose (74-99) mg/dL POC Glucose (mg/dL) (75-99) mg/dL AST (14-36) U/L ALT (4-34) U/L Albumin (3.5-5.0) g/dL Microbiology - Last 24 Hours (Table) 04/30/21 08:10 Blood Culture - Final Blood No Growth after 144 hours Assessment and Plan (1) Positive blood culture Current Visit: Yes Status: Acute Code(s): R78.81 - BACTEREMIA SNOMED Code(s): 569560255 (2) COVID-19 Current Visit: Yes Status: Acute Code(s): U07.1 - COVID-19 SNOMED Code(s): 435289290 Plan: 1-patient with a positive blood culture which has been finalized and staph epi likely skin contaminant vancomycin discontinued, Repeat blood culture has been negative so far, we will continue to monitor patient closely off vancomycin 2-acute respiratory failure which is multifactorial possible component of pneumonia, Sputum has been usual respiratory pat White count is normal, the patient is currently being treated with cefepime and monitor clinical course closely Time with Patient: Less than 30
[2021-05-06 23:51] LABS: Glucose,Whole Blood 100 mg/dL (75-99)
[2021-05-07] MEDS: CEFEPIME 2 GM in SODIUM CHLORIDE 0.9% 100 ML IVPB SCH ×2 (00:26→08:00)
[2021-05-07] MEDS: INSULIN ASPART (NovoLOG) 100 UNIT/ML VIAL SQ SCH ×5 (00:27→23:39)
[2021-05-07] MEDS: NOREPINEPHRINE 8 MG in SODIUM CHLORIDE 0.9% 250 ML IV SCH (04:13)
[2021-05-07 04:21] LABS: Basophils % (A) 0 %; Eosinophils % (A) 0 %; HGB 11.7 gm/dL (11.4-16.0); Lymphocytes # (A) 0.9 k/uL (1.0-4.8); Lymphocytes % (A) 10 %; MCH 30.9 pg (25.0-35.0); MCHC 31.5 g/dL (31.0-37.0); Mean Platelet Volume 9.3; Monocytes # (A) 0.6 k/uL (0-1.0); Monocytes % (A) 7 %; Neutrophils # (A) 6.6 k/uL (1.3-7.7); Neutrophils % (A) 80 %; Platelet Count 405 k/uL (150-450); RBC 3.78 m/uL (3.80-5.40); RDW 13.8 % (11.5-15.5); WBC 8.3 k/uL (3.8-10.6)
[2021-05-07 04:41] LABS: ALT 148 U/L (4-34); AST 69 U/L (14-36); African American GFR (CKD) >90 (>60 ml/min/1.73 sqM); Albumin 2.9 g/dL (3.5-5.0); Alkaline Phosphatase 85 U/L (38-126); Anion Gap 0 mmol/L; Blood Urea Nitrogen 16 mg/dL (7-17); Calcium 8.8 mg/dL (8.4-10.2); Carbon Dioxide 37 mmol/L (22-30); Chloride 99 mmol/L (98-107); Glucose 108 mg/dL (74-99); LDH 835 U/L (313-618); Non-African American GFR(CKD) >90 (>60 ml/min/1.73 sqM); Potassium 4.3 mmol/L (3.5-5.1); Sodium 136 mmol/L (137-145); Total Bilirubin 0.6 mg/dL (0.2-1.3); Total Protein 6.4 g/dL (6.3-8.2)
[2021-05-07 05:42] LABS: ABG Base Excess 14.3 mmol/L; ABG HCO3 38 mmol/L (21-25); ABG Oxygen Saturation 98.1 % (94-97); ABG PCO2 57 mmHg (35-45); ABG PH 7.44 (7.35-7.45); ABG PO2 98 mmHg (83-108); ABG TCO2 40 mmol/L (19-24); Allen Test Performed? Yes
[2021-05-07] MEDS: LEVOTHYROXINE 112 MCG TAB PO SCH (06:01)
[2021-05-07] MEDS: ALBUTEROL HFA INHALER INHALATION SCH ×4 (07:41→20:37)
[2021-05-07] MEDS: ZINC SULFATE 220 MG CAP PO SCH (08:03)
[2021-05-07] MEDS: QUEtiapine 25 MG TAB PO SCH (08:03)
[2021-05-07] MEDS: DEXAMETHASONE SOD PHOSPHATE 10 MG/ML 1 ML VIAL IVP SCH (08:03)
[2021-05-07] MEDS: ENOXAPARIN 100 MG/ML SYRINGE SQ SCH ×2 (08:03→20:01)
[2021-05-07] MEDS: PANTOPRAZOLE 40 MG/10 ML VIAL IVP SCH (08:03)
[2021-05-07] MEDS: ASCORBIC ACID 500 MG TAB PO SCH (08:03)
[2021-05-07] MEDS: CHOLECALCIFEROL 125 MCG (5000 IU) TABLET PO SCH (08:04)
[2021-05-07] MEDS: CHLORHEXIDINE GLUCONATE 15 ML CUP MUCOUS MEM SCH ×2 (08:04→19:51)
[2021-05-07] MEDS ORDERED: Potassium Replacement Protocol 1 EACH MISC MISCELLANE PRN (08:31)
[2021-05-07] MEDS ORDERED: QUEtiapine 25 MG TAB PO ONE (08:45)
[2021-05-07] MEDS ORDERED: POTASSIUM CHLORIDE ER 20 MEQ TAB.ER PO SCH (09:00)
--- NOTE | 2021-05-07 09:10 | XR ---
EXAMINATION TYPE: XR chest 1V portable DATE OF EXAM: 05/07/2021 COMPARISON: 05/06/2021 HISTORY: Postop TECHNIQUE: Single frontal view of the chest is obtained. FINDINGS: ET and NG tube seen with right-sided central line. Diffuse interstitial bilateral infiltra sarah. Small bilateral pleural effusions. No pneumothorax. IMPRESSION: Bilateral infiltrates are stable
[2021-05-07] MEDS: DEXMEDETOMIDINE/0.9% NACL(PMX) 400 MCG in EMPTY BAG 1 BAG IV SCH ×2 (09:44→23:39)
--- NOTE | 2021-05-07 10:22 | P.PN ---
Subjective Progress Note Date: 05/07/21 Principal diagnosis: Acute COVID-19 pneumonia On 05/06/2021 patient seen in follow-up in the intensive care unit. Patient remains intubated, sedated on assist control mode of ventilation with a rate of 34, tidal [id number], FiO2 50% and PEEP of 12, this was blood gas shows pO2 of 85, pCO2 of 61, and pH of 7.40, and this was done and above-mentioned ventilator settings, patient is sedated with Diprivan and a 60 mics per kilo per minute, and fentanyl at 2.0 mics per kilo per minute, 0.9 normal saline at a rate of 20 ML per hour. She is receiving tube feedings with vital HP at a rate of 21 with a goal of 21, and standard water flushes, today's chest x-ray shows diffuse bi lateral infiltrates and pleural effusions are stable in appearance. Patient currently remains on dexamethasone 6 mg every 12 hours, she is on prophylactic dose of Lovenox 100 mg twice daily, she is on Seroquel 25 mg twice daily, she is on multivitamins, she is on cefepime for antibiotic coverage and Ventolin and Symbicort. Patient's blood culture from 04/27/2021 showed staph epidermidis likely skin contaminant, follow blood culture and sputum cultures have shown no growth, urine culture was also negative. Hemodynamically patient has remained stable, no vasopressor support. She is in sinus mechanism. She has been afebrile. She is tolerating her tube feedings. His labs have been reviewed, white blood cell count is 8.3, hemoglobin is 11.9, sodium is 140, potassium 4.2, chloride is 103, CO2 38, B1 17, creatinine 0.50, AST was 70, improved value, and ALT was 146, fairly stable, alk phos was within normal limits. Her inflammatory markers were improving on the labs from 04/29/2021. Her d-dimer was also improving and was down to 5.07. Her lower extremity Doppler showed a DVT in the right popliteal vein. Patient also had a questionable right lower lobe PE involving subsegmental branches the initial CT angiogram of the chest from 04/24/2021. On 05/07/2021 patient seen in follow-up in intensive care unit, she is currently sedated and intubated on assist control mode of ventilation with a rate of 34, Tylenol 300, FiO2 of 50% and PEEP 8. This morning's blood gas shows pO2 of 98, pCO2 of 57, and pH of 7.44. Today's chest x-ray has been reviewed showing bilateral infiltrates stable in appearance. Patient is currently on 0.9 normal saline at rate of 20 ML per hour, Diprivan and is at 35 mics per kilo per minute, and fentanyl infusion at 1 nadia per kilo per minute, she is tolerating tube feeding she is on vital HP at 21 with standard water flushes 30 mL every 4 hours, today's labs have been reviewed, white blood cell count is 8.3, hemoglobin is 11.7, platelet count is 405, sodium is 136, potassium is 4.3, chloride is 99, CO2 is 37, BUN 16 creatinine 0.46. AST is improving and is down to 69, ALT is 148, relatively stable compared to yesterday, LDH is improved and is down to 835, CRP is 1.0, follow pro-calcitonin is 0.14. Patient remains on cefepime, and she has completed 10 day course of treatment. Single blood culture from was positive for staph epidermidis likely skin contaminant, follow blood cultures urine culture and sputum cultures have shown no growth. She's had no acute events overnight. We will consult the surgical services for possibility tracheostomy and PEG tube placement, the family would like to see if patient can potentially wean from the ventilator, we will proceed with the daily interruption of sedation spontaneous breathing trials today. Objective - Vital Signs Vital signs: Vital Signs Temp 99.2 F 05/07/21 08:00 Pulse 85 05/07/21 10:00 Resp 34 H 05/07/21 10:00 BP 131/69 05/07/21 10:00 Pulse Ox 100 05/07/21 10:00 Intake & Output 05/06/21 05/07/21 05/07/21 18:59 06:59 18:59 Intake Total 7934.317 8999.041 399.868 Output Total 1040 970 600 Balance 460.240 146.041 -200.132 Weight 112.7 kg 112 kg Intake: IV 353 399 169 Cefepime 2 gm In Sodium 100 100 100 Chloride 0.9% 100 ml @ 25 mls/hr IVPB Q8HR [facility] Rx# :[id number] Pressure Bag 33 39 9 Sodium Chloride 0.9% 1, 220 260 60 000 ml @ 20 mls/hr IV . Q24H [facility] Rx#:[id number] Intake, IV Titration 726.240 354.041 37.868 Amount fentaNYL (PF) 2,500 mcg 250.000 105.908 In Sodium Chloride 0.9% 200 ml @ 0.5 MCG/KG/HR 5. 23 mls/hr IV .Q24H [facility] Rx #:[id number] propofoL 1,000 mg In 476.240 248.133 37.868 Empty Bag 1 bag @ Titrate IV .Q0M [facility] Rx#: [id number] Tube Feeding 231 273 63 Other 190 90 130 Output: Urine 1040 970 600 Other: Voiding Method Indwelling Catheter Indwelling Catheter ABP, PAP, CO, CI - Last Documented Arterial Blood Pressure 112/52 - Exam GENERAL EXAM: Today, and intubated, 46-year-old female, on assist-control mode of ventilation with a rate of 34, tidal volume is 300, FiO2 of 50% and PEEP of 8, sedated with Diprivan at 35 mics per kilo per minute, and Fentanyl infusion at 1 mics per kilo per minute, currently not on any paralytics comfortable in no apparent distress. HEAD: Normocephalic/atraumatic. EYES: Normal reaction of pupils, equal size. Conjunctiva pink, sclera white. NOSE: Clear with pink turbinates. THROAT: No erythema or exudates. NECK: No masses, no JVD, no thyroid enlargement, no adenopathy. CHEST: No chest wall deformity. Symmetrical expansion. LUNGS: Equal air entry with no crackles, wheeze, rhonchi or dullness. CVS: Regular rate and rhythm, normal S1 and S2, no gallops, no murmurs, no rubs ABDOMEN: Soft, nontender. No hepatosplenomegaly, normal bowel sounds, no guarding or rigidity. EXTREMITIES: No clubbing, no edema, no cyanosis, 2+ pulses and upper and lower extremities. MUSCULOSKELETAL: Muscle strength and tone normal. SPINE: No scoliosis or deformity SKIN: No rashes CENTRAL NERVOUS SYSTEM: Intubated and sedated. No focal deficits, tone is normal in all 4 extremities. - Labs CBC & Chem 7: 05/07/21 03:38 05/07/21 03:38 Labs: Abnormal Lab Results - Last 24 Hours (Table) 05/06/21 05/07/21 05/07/21 Range/Units 23:49 03:38 03:38 RBC 3.78 L (3.80-5.40) m/uL Lymphocytes # 0.9 L (1.0-4.8) k/uL ABG pCO2 (35-45) mmHg ABG HCO3 (21-25) mmol/L ABG Total CO2 (19-24) mmol/L ABG O2 Saturation (94-97) % Sodium (137-145) mmol/L Carbon Dioxide (22-30) mmol/L Creatinine (0.52-1.04) mg/dL Glucose (74-99) mg/dL POC Glucose (mg/dL) 100 H (75-99) mg/dL AST (14-36) U/L ALT (4-34) U/L Lactate Dehydrogenase (313-618) U/L C-Reactive Protein (<1.0) mg/dL Albumin (3.5-5.0) g/dL Procalcitonin 0.14 H (0.02-0.09) ng/mL 05/07/21 05/07/21 Range/Units 03:38 04:40 RBC (3.80-5.40) m/uL Lymphocytes # (1.0-4.8) k/uL ABG pCO2 57 H (35-45) mmHg ABG HCO3 38 H (21-25) mmol/L ABG Total CO2 40 H (19-24) mmol/L ABG O2 Saturation 98.1 H (94-97) % Sodium 136 L (137-145) mmol/L Carbon Dioxide 37 H (22-30) mmol/L Creatinine 0.46 L (0.52-1.04) mg/dL Glucose 108 H (74-99) mg/dL POC Glucose (mg/dL) (75-99) mg/dL AST 69 H (14-36) U/L ALT 148 H (4-34) U/L Lactate Dehydrogenase 835 H (313-618) U/L C-Reactive Protein 1.0 H (<1.0) mg/dL Albumin 2.9 L (3.5-5.0) g/dL Procalcitonin (0.02-0.09) ng/mL Microbiology - Last 24 Hours (Table) 04/30/21 08:10 Blood Culture - Final Blood No Growth after 144 hours Assessment and Plan Plan: Assessment: #1. Acute hypoxic respiratory failure secondary to COVID-19 pneumonia. Patient is a non-vaccinated adult. Initial diagnosis was established on 04/13/2021, patient was hospitalized and discharged home on 04/18/2021, readmitted with worsening hypoxia and dyspnea, and intubated on 04/27/2021. She remains intubated and mechanically ventilated today on 05/06/2021. Patient was initially placed on Baricitinib which was discontinued because of concern of infection related to mildly elevated pro calcitonin. Currently pro calcitonin level is improved, patient remains on cefepime for empiric antibiotic coverage with no positive bacterial growth on cultures except for staph epidermidis on blood culture which is likely skin contamination #2. Acute right lower lobe pulmonary embolism and right popliteal DVT, currently on therapeutic dose of Lovenox 100 mg twice daily #3. Acute respiratory acidosis, improved, compensated #4. History of hypothyroidism #5. History of marijuana smoking Plan: Give the patient a sedation holiday Assess mental status Continue same mode of ventilation, the PEEP is currently down to 8, FiO2 at 50% This is chest x-ray shows stable bilateral airspace disease No fever or chills, hemodynamically stable, no acute events overnight Today's blood gas has been reviewed We'll proceed with daily interruption of sedation, if he wakes up appropriately and follows commands and is calm and comfortable we'll proceed with spontaneous breathing trials with pressure support of 8 and CPAP of 5 We may use Precedex if patient has anxiety when she is awake Continue Decadron, continue Lovenox 100 mg twice daily Increase Seroquel to 50 mg twice daily We'll discontinue cefepime, pro calcitonin level is improved, blood cultures are negative except for one single blood culture which was likely contaminated with skin pat We'll hold off on trach and PEG today, and see if we can wean and extubate the patient Continue closely following her progress in the ICU If fails sedation or spontaneous breathing trials, place the patient back on assist control mode of ventilation, and resedate Follow-up chest x-ray blood gas, CBC, CMP, inflammatory markers in the morning I performed a history & physical examination of the patient and discussed their management with my nurse practitioner, Maribeth Pereira. I reviewed the nurse practitioner's note and agree with the documented findings and plan of care. Lung sounds are positive for dim breath sounds throughout the lung tai. The findings and the impression was discussed with the patient. I attest to the documentation by the nurse practitioner. Time with Patient: Greater than 30
[2021-05-07 11:48] LABS: Glucose,Whole Blood 105 mg/dL (75-99)
[2021-05-07] MEDS: SODIUM CHLORIDE 0.9% 500 ML 500 ML IV SCH (12:00)
[2021-05-07 12:26] LABS: ABG Base Excess 14.3 mmol/L; ABG HCO3 39 mmol/L (21-25); ABG Oxygen Saturation 95.4 % (94-97); ABG PCO2 57 mmHg (35-45); ABG PH 7.44 (7.35-7.45); ABG PO2 75 mmHg (83-108); ABG TCO2 40 mmol/L (19-24)
[2021-05-07] MEDS: fentaNYL (PF) 2,500 MCG in SODIUM CHLORIDE 0.9% 200 ML IV SCH (13:00)
--- NOTE | 2021-05-07 15:04 | P.PN ---
Subjective Progress Note Date: 05/07/21 CHIEF COMPLAINT: COVID-19 pneumonia HISTORY OF PRESENT ILLNESS: Patient is currently intubated and on mechanical ventilation in the ICU. They're working on weaning patient hopefully to CPAP this afternoon. Critical care services recommending patient undergoes weaning trials prior to tracheostomy and PEG tube placement. Afebrile. WBC 8.3 hemoglobin 11.7 platelets 405 PHYSICAL EXAM: VITAL SIGNS: Reviewed. GENERAL: no acute distress. HEENT: Moist buccal mucosa. Head is atraumatic, normocephalic. ABDOMEN: Soft. Nondistended. Nontender. ASSESSMENT: 1. Acute hypoxic respiratory failure secondary to COVID-19 pneumonia. 2. Severe Protein calorie malnutrition 3. Right lower lobe pulmonary embolism and right leg DVT PLAN: -Continue ICU management -Continue supportive care -Continue vent weaning per critical care service -continue to follow for possible tracheostomy and PEG tube placement later this week Physician Nurse Private Duty note has been reviewed by physician. Signing provider agrees with the documented findings, assessment, and plan of care. Objective - Vital Signs Vital signs: Vital Signs Temp 99.2 F 05/07/21 08:00 Pulse 85 05/07/21 10:00 Resp 34 H 05/07/21 10:00 BP 131/69 05/07/21 10:00 Pulse Ox 100 05/07/21 10:00 Intake & Output 05/06/21 05/07/21 05/07/21 18:59 06:59 18:59 Intake Total 5564.937 9512.041 632.603 Output Total 1040 970 600 Balance 460.240 146.041 32.603 Weight 112.7 kg 112 kg Intake: IV 353 399 169 Cefepime 2 gm In Sodium 100 100 100 Chloride 0.9% 100 ml @ 25 mls/hr IVPB Q8HR [facility] Rx# :[id number] Pressure Bag 33 39 9 Sodium Chloride 0.9% 1, 220 260 60 000 ml @ 20 mls/hr IV . Q24H [facility] Rx#:[id number] Intake, IV Titration 726.240 354.041 270.603 Amount Dexmedetomidine/0.9% NaCl 2.893 (Pmx) 400 mcg In Empty Bag 1 bag @ 0.2 MCG/KG/HR 5.6 mls/hr IV .[id number] [facility] Rx#:[id number] fentaNYL (PF) 2,500 mcg 250.000 105.908 144.092 In Sodium Chloride 0.9% 200 ml @ 0.5 MCG/KG/HR 5. 23 mls/hr IV .Q24H [facility] Rx #:[id number] propofoL 1,000 mg In 476.240 248.133 123.618 Empty Bag 1 bag @ Titrate IV .Q0M [facility] Rx#: [id number] Tube Feeding 231 273 63 Other 190 90 130 Output: Urine 1040 970 600 Other: Voiding Method Indwelling Catheter Indwelling Catheter Indwelling Catheter ABP, PAP, CO, CI - Last Documented Arterial Blood Pressure 112/52 - Labs CBC & Chem 7: 05/07/21 03:38 05/07/21 03:38 Labs: Abnormal Lab Results - Last 24 Hours (Table) 05/06/21 05/07/21 05/07/21 Range/Units 23:49 03:38 03:38 RBC 3.78 L (3.80-5.40) m/uL Lymphocytes # 0.9 L (1.0-4.8) k/uL ABG pCO2 (35-45) mmHg ABG pO2 (83-108) mmHg ABG HCO3 (21-25) mmol/L ABG Total CO2 (19-24) mmol/L ABG O2 Saturation (94-97) % Sodium (137-145) mmol/L Carbon Dioxide (22-30) mmol/L Creatinine (0.52-1.04) mg/dL Glucose (74-99) mg/dL POC Glucose (mg/dL) 100 H (75-99) mg/dL AST (14-36) U/L ALT (4-34) U/L Lactate Dehydrogenase (313-618) U/L C-Reactive Protein (<1.0) mg/dL Albumin (3.5-5.0) g/dL Procalcitonin 0.14 H (0.02-0.09) ng/mL 05/07/21 05/07/21 05/07/21 Range/Units 03:38 04:40 11:45 RBC (3.80-5.40) m/uL Lymphocytes # (1.0-4.8) k/uL ABG pCO2 57 H (35-45) mmHg ABG pO2 (83-108) mmHg ABG HCO3 38 H (21-25) mmol/L ABG Total CO2 40 H (19-24) mmol/L ABG O2 Saturation 98.1 H (94-97) % Sodium 136 L (137-145) mmol/L Carbon Dioxide 37 H (22-30) mmol/L Creatinine 0.46 L (0.52-1.04) mg/dL Glucose 108 H (74-99) mg/dL POC Glucose (mg/dL) 105 H (75-99) mg/dL AST 69 H (14-36) U/L ALT 148 H (4-34) U/L Lactate Dehydrogenase 835 H (313-618) U/L C-Reactive Protein 1.0 H (<1.0) mg/dL Albumin 2.9 L (3.5-5.0) g/dL Procalcitonin (0.02-0.09) ng/mL 05/07/21 Range/Units 12:21 RBC (3.80-5.40) m/uL Lymphocytes # (1.0-4.8) k/uL ABG pCO2 57 H (35-45) mmHg ABG pO2 75 L (83-108) mmHg ABG HCO3 39 H (21-25) mmol/L ABG Total CO2 40 H (19-24) mmol/L ABG O2 Saturation (94-97) % Sodium (137-145) mmol/L Carbon Dioxide (22-30) mmol/L Creatinine (0.52-1.04) mg/dL Glucose (74-99) mg/dL POC Glucose (mg/dL) (75-99) mg/dL AST (14-36) U/L ALT (4-34) U/L Lactate Dehydrogenase (313-618) U/L C-Reactive Protein (<1.0) mg/dL Albumin (3.5-5.0) g/dL Procalcitonin (0.02-0.09) ng/mL Microbiology - Last 24 Hours (Table) 04/30/21 08:10 Blood Culture - Final Blood No Growth after 144 hours
[2021-05-07 17:48] LABS: Glucose,Whole Blood 93 mg/dL (75-99)
--- NOTE | 2021-05-07 18:31 | PN ---
PROGRESS NOTE DATE OF SERVICE: 05/05/2021 CHIEF COMPLAINT: COVID pneumonia and respiratory failure. HISTORY OF PRESENT ILLNESS: This lady continues to be on the ventilator. There has been no change from yesterday that is observable. PHYSICAL EXAMINATION: She is in sinus rhythm. Breath sounds are heard bilaterally. Extremities are well perfused. IMPRESSION: 1. COVID pneumonia, severe. 2. Respiratory failure. PLAN: She will continue on ventilator support and I will follow with Pulmonology and Infectious Disease. MMODL / IJN: [id number] /
--- NOTE | 2021-05-07 18:37 | PN ---
PROGRESS NOTE DATE OF SERVICE: 05/07/2021 CHIEF COMPLAINT: COVID pneumonia. HISTORY OF PRESENT ILLNESS: This lady continues on ventilator support. Chest x-rays remain about the same. PHYSICAL EXAMINATION: Vital signs remain normal. She is in sinus rhythm and chest is clear. IMPRESSION: 1. COVID pneumonia. 2. Respiratory failure. PLAN: Continue to follow with Pulmonology and Infectious Disease with no changes on my part at this time. MMODL / IJN: [id number] /
[2021-05-07] MEDS: QUEtiapine 50 MG TAB PO SCH (19:51)
--- NOTE | 2021-05-07 21:28 | P.PN ---
Subjective Progress Note Date: 05/07/21 Principal diagnosis: Pneumonia and bacteremia Interval history : Patient is a 46-year-old -[place] female with admission diagnoses: Acute COVID-19 pneumonia subsequently admission to the hospital with worsening respiratory status has been diagnosed with a DVT and PE. On today's evaluation that is 05/07/2021, The patient continues to be afebrile, the patient is hemodynamically stable not requiring any pressor support , the patient FiO2 is currently stable at 50%, no purulent secretion through the ET has been reported by the nursing staff, patient has been tolerating tube feeds and no diarrhea has been reported, Objective - Vital Signs Vital signs: Vital Signs Temp 99.2 F 05/07/21 08:00 Pulse 85 05/07/21 10:00 Resp 34 H 05/07/21 10:00 BP 131/69 05/07/21 10:00 Pulse Ox 100 05/07/21 10:00 Intake & Output 05/06/21 05/07/21 05/07/21 18:59 06:59 18:59 Intake Total 8491.949 9046.041 450.240 Output Total 1040 970 600 Balance 460.240 146.041 -149.760 Weight 112.7 kg 112 kg Intake: IV 353 399 169 Cefepime 2 gm In Sodium 100 100 100 Chloride 0.9% 100 ml @ 25 mls/hr IVPB Q8HR [facility] Rx# :[id number] Pressure Bag 33 39 9 Sodium Chloride 0.9% 1, 220 260 60 000 ml @ 20 mls/hr IV . Q24H [facility] Rx#:[id number] Intake, IV Titration 726.240 354.041 88.240 Amount Dexmedetomidine/0.9% NaCl 2.893 (Pmx) 400 mcg In Empty Bag 1 bag @ 0.2 MCG/KG/HR 5.6 mls/hr IV .[id number] [facility] Rx#:[id number] fentaNYL (PF) 2,500 mcg 250.000 105.908 In Sodium Chloride 0.9% 200 ml @ 0.5 MCG/KG/HR 5. 23 mls/hr IV .Q24H [facility] Rx #:[id number] propofoL 1,000 mg In 476.240 248.133 85.347 Empty Bag 1 bag @ Titrate IV .Q0M [facility] Rx#: [id number] Tube Feeding 231 273 63 Other 190 90 130 Output: Urine 1040 970 600 Other: Voiding Method Indwelling Catheter Indwelling Catheter Indwelling Catheter ABP, PAP, CO, CI - Last Documented Arterial Blood Pressure 112/52 - Exam GENERAL DESCRIPTION: Middle-aged female intubated on the vent RESPIRATORY SYSTEM: Unlabored breathing , decreased breath sounds at bases HEART: S1 S2 regular rate and rhythm ,no loud murmurs ABDOMEN: Soft , no tenderness EXTREMITIES: No edema feet - Labs CBC & Chem 7: 05/07/21 03:38 05/07/21 03:38 Labs: Abnormal Lab Results - Last 24 Hours (Table) 05/06/21 05/07/21 05/07/21 Range/Units 23:49 03:38 03:38 RBC 3.78 L (3.80-5.40) m/uL Lymphocytes # 0.9 L (1.0-4.8) k/uL ABG pCO2 (35-45) mmHg ABG pO2 (83-108) mmHg ABG HCO3 (21-25) mmol/L ABG Total CO2 (19-24) mmol/L ABG O2 Saturation (94-97) % Sodium (137-145) mmol/L Carbon Dioxide (22-30) mmol/L Creatinine (0.52-1.04) mg/dL Glucose (74-99) mg/dL POC Glucose (mg/dL) 100 H (75-99) mg/dL AST (14-36) U/L ALT (4-34) U/L Lactate Dehydrogenase (313-618) U/L C-Reactive Protein (<1.0) mg/dL Albumin (3.5-5.0) g/dL Procalcitonin 0.14 H (0.02-0.09) ng/mL 05/07/21 05/07/21 05/07/21 Range/Units 03:38 04:40 11:45 RBC (3.80-5.40) m/uL Lymphocytes # (1.0-4.8) k/uL ABG pCO2 57 H (35-45) mmHg ABG pO2 (83-108) mmHg ABG HCO3 38 H (21-25) mmol/L ABG Total CO2 40 H (19-24) mmol/L ABG O2 Saturation 98.1 H (94-97) % Sodium 136 L (137-145) mmol/L Carbon Dioxide 37 H (22-30) mmol/L Creatinine 0.46 L (0.52-1.04) mg/dL Glucose 108 H (74-99) mg/dL POC Glucose (mg/dL) 105 H (75-99) mg/dL AST 69 H (14-36) U/L ALT 148 H (4-34) U/L Lactate Dehydrogenase 835 H (313-618) U/L C-Reactive Protein 1.0 H (<1.0) mg/dL Albumin 2.9 L (3.5-5.0) g/dL Procalcitonin (0.02-0.09) ng/mL 05/07/21 Range/Units 12:21 RBC (3.80-5.40) m/uL Lymphocytes # (1.0-4.8) k/uL ABG pCO2 57 H (35-45) mmHg ABG pO2 75 L (83-108) mmHg ABG HCO3 39 H (21-25) mmol/L ABG Total CO2 40 H (19-24) mmol/L ABG O2 Saturation (94-97) % Sodium (137-145) mmol/L Carbon Dioxide (22-30) mmol/L Creatinine (0.52-1.04) mg/dL Glucose (74-99) mg/dL POC Glucose (mg/dL) (75-99) mg/dL AST (14-36) U/L ALT (4-34) U/L Lactate Dehydrogenase (313-618) U/L C-Reactive Protein (<1.0) mg/dL Albumin (3.5-5.0) g/dL Procalcitonin (0.02-0.09) ng/mL Microbiology - Last 24 Hours (Table) 04/30/21 08:10 Blood Culture - Final Blood No Growth after 144 hours Assessment and Plan (1) Positive blood culture Current Visit: Yes Status: Acute Code(s): R78.81 - BACTEREMIA SNOMED Code(s): 269777187 (2) COVID-19 Current Visit: Yes Status: Acute Code(s): U07.1 - COVID-19 SNOMED Code(s): 667614799 Plan: 1-patient with a positive blood culture which has been finalized and staph epi likely skin contaminant, Repeat blood culture has been negative so far, we will continue to monitor patient closely off vancomycin 2-acute respiratory failure which is multifactorial possible component of pneumonia, Sputum has been usual respiratory pat White count is normal, the patient to continue with cefepime and monitor clinical course closely, son at the bedside questions were answered
[2021-05-07 23:32] LABS: Glucose,Whole Blood 75 mg/dL (75-99)
[2021-05-08] MEDS: fentaNYL (PF) 2,500 MCG in SODIUM CHLORIDE 0.9% 200 ML IV SCH ×2 (04:15→17:11)
[2021-05-08 04:53] LABS: Basophils % (A) 0 %; Eosinophils # (A) 0.1 k/uL (0-0.7); Eosinophils % (A) 1 %; HCT 36.7 % (34.0-46.0); HGB 11.5 gm/dL (11.4-16.0); Lymphocytes # (A) 2.3 k/uL (1.0-4.8); Lymphocytes % (A) 25 %; MCH 30.9 pg (25.0-35.0); MCHC 31.3 g/dL (31.0-37.0); Macrocytosis Slight; Mean Platelet Volume 9.2; Monocytes # (A) 0.7 k/uL (0-1.0); Monocytes % (A) 8 %; Neutrophils # (A) 5.9 k/uL (1.3-7.7); Neutrophils % (A) 63 %; Platelet Count 384 k/uL (150-450); RBC 3.71 m/uL (3.80-5.40); RDW 14.8 % (11.5-15.5); WBC 9.3 k/uL (3.8-10.6)
[2021-05-08 05:16] LABS: ALT 130 U/L (4-34); AST 59 U/L (14-36); African American GFR (CKD) >90 (>60 ml/min/1.73 sqM); Albumin 2.7 g/dL (3.5-5.0); Alkaline Phosphatase 82 U/L (38-126); Anion Gap -1 mmol/L; Blood Urea Nitrogen 15 mg/dL (7-17); Calcium 8.5 mg/dL (8.4-10.2); Carbon Dioxide 37 mmol/L (22-30); Chloride 104 mmol/L (98-107); Glucose 94 mg/dL (74-99); LDH 764 U/L (313-618); Non-African American GFR(CKD) >90 (>60 ml/min/1.73 sqM); Potassium 3.4 mmol/L (3.5-5.1); Sodium 140 mmol/L (137-145); Total Bilirubin 0.7 mg/dL (0.2-1.3)
[2021-05-08 05:37] LABS: C Reactive Protein 1.3 mg/dL (<1.0)
[2021-05-08 05:43] LABS: ABG HCO3 37 mmol/L (21-25); ABG Oxygen Saturation 95.3 % (94-97); ABG PCO2 50 mmHg (35-45); ABG PH 7.47 (7.35-7.45); ABG PO2 71 mmHg (83-108); ABG TCO2 38 mmol/L (19-24); Allen Test Performed? Yes
[2021-05-08 05:54] LABS: Glucose,Whole Blood 67 mg/dL (75-99)
[2021-05-08 05:57] LABS: Glucose,Whole Blood 80 mg/dL (75-99)
[2021-05-08] MEDS: INSULIN ASPART (NovoLOG) 100 UNIT/ML VIAL SQ SCH ×3 (06:16→18:11)
[2021-05-08] MEDS: POTASSIUM BICARBONATE/CIT AC 20 MEQ TABLET.EFF NG-TUBE SCH (06:17)
[2021-05-08] MEDS: LEVOTHYROXINE 112 MCG TAB PO SCH (06:17)
[2021-05-08] MEDS: ALBUTEROL HFA INHALER INHALATION SCH ×4 (07:23→19:38)
[2021-05-08] MEDS: PANTOPRAZOLE 40 MG/10 ML VIAL IVP SCH (07:54)
[2021-05-08] MEDS: QUEtiapine 50 MG TAB PO SCH ×2 (07:54→20:47)
[2021-05-08] MEDS: ASCORBIC ACID 500 MG TAB PO SCH (07:54)
[2021-05-08] MEDS: CHLORHEXIDINE GLUCONATE 15 ML CUP MUCOUS MEM SCH ×2 (07:55→20:48)
[2021-05-08] MEDS: ENOXAPARIN 100 MG/ML SYRINGE SQ SCH ×2 (07:55→20:48)
[2021-05-08] MEDS: DEXAMETHASONE SOD PHOSPHATE 10 MG/ML 1 ML VIAL IVP SCH (07:55)
[2021-05-08] MEDS: CHOLECALCIFEROL 125 MCG (5000 IU) TABLET PO SCH (07:56)
[2021-05-08] MEDS: ZINC SULFATE 220 MG CAP PO SCH (08:06)
--- NOTE | 2021-05-08 08:15 | XR ---
EXAMINATION TYPE: XR chest 1V portable DATE OF EXAM: 05/08/2021 COMPARISON: Chest x-ray 05/07/2021 HISTORY: Intubated, abnormal chest x-ray TECHNIQUE: Single frontal view of the chest is obtained. FINDINGS: Endotracheal tube, NG tube, right-sided PICC line are overlying stable positions. Patient is rotated. There is no evident pneumothorax or pleural effusion. Bilateral airspace disease is again noted. Cardiac mediastinal silhouette shows no interval change accounting for differences in techniq ue. There are overlying artifacts. IMPRESSION: Correlate for pneumonia, ARDS, congestive heart failure not excluded
[2021-05-08 09:39] LABS: ABG Base Excess 13.2 mmol/L; ABG HCO3 37 mmol/L (21-25); ABG Oxygen Saturation 93.2 % (94-97); ABG PCO2 53 mmHg (35-45); ABG PH 7.46 (7.35-7.45); ABG PO2 65 mmHg (83-108); ABG TCO2 39 mmol/L (19-24)
[2021-05-08 09:42] LABS: Allen Test Performed? no
--- NOTE | 2021-05-08 11:12 | P.PN ---
Subjective Progress Note Date: 05/08/21 Principal diagnosis: Acute COVID-19 pneumonia On 05/06/2021 patient seen in follow-up in the intensive care unit. Patient remains intubated, sedated on assist control mode of ventilation with a rate of 34, tidal [id number], FiO2 50% and PEEP of 12, this was blood gas shows pO2 of 85, pCO2 of 61, and pH of 7.40, and this was done and above-mentioned ventilator settings, patient is sedated with Diprivan and a 60 mics per kilo per minute, and fentanyl at 2.0 mics per kilo per minute, 0.9 normal saline at a rate of 20 ML per hour. She is receiving tube feedings with vital HP at a rate of 21 with a goal of 21, and standard water flushes, today's chest x-ray shows diffuse bi lateral infiltrates and pleural effusions are stable in appearance. Patient currently remains on dexamethasone 6 mg every 12 hours, she is on prophylactic dose of Lovenox 100 mg twice daily, she is on Seroquel 25 mg twice daily, she is on multivitamins, she is on cefepime for antibiotic coverage and Ventolin and Symbicort. Patient's blood culture from 04/27/2021 showed staph epidermidis likely skin contaminant, follow blood culture and sputum cultures have shown no growth, urine culture was also negative. Hemodynamically patient has remained stable, no vasopressor support. She is in sinus mechanism. She has been afebrile. She is tolerating her tube feedings. His labs have been reviewed, white blood cell count is 8.3, hemoglobin is 11.9, sodium is 140, potassium 4.2, chloride is 103, CO2 38, B1 17, creatinine 0.50, AST was 70, improved value, and ALT was 146, fairly stable, alk phos was within normal limits. Her inflammatory markers were improving on the labs from 04/29/2021. Her d-dimer was also improving and was down to 5.07. Her lower extremity Doppler showed a DVT in the right popliteal vein. Patient also had a questionable right lower lobe PE involving subsegmental branches the initial CT angiogram of the chest from 04/24/2021. On 05/07/2021 patient seen in follow-up in intensive care unit, she is currently sedated and intubated on assist control mode of ventilation with a rate of 34, Tylenol 300, FiO2 of 50% and PEEP 8. This morning's blood gas shows pO2 of 98, pCO2 of 57, and pH of 7.44. Today's chest x-ray has been reviewed showing bilateral infiltrates stable in appearance. Patient is currently on 0.9 normal saline at rate of 20 ML per hour, Diprivan and is at 35 mics per kilo per minute, and fentanyl infusion at 1 nadai per kilo per minute, she is tolerating tube feeding she is on vital HP at 21 with standard water flushes 30 mL every 4 hours, today's labs have been reviewed, white blood cell count is 8.3, hemoglobin is 11.7, platelet count is 405, sodium is 136, potassium is 4.3, chloride is 99, CO2 is 37, BUN 16 creatinine 0.46. AST is improving and is down to 69, ALT is 148, relatively stable compared to yesterday, LDH is improved and is down to 835, CRP is 1.0, follow pro-calcitonin is 0.14. Patient remains on cefepime, and she has completed 10 day course of treatment. Single blood culture from was positive for staph epidermidis likely skin contaminant, follow blood cultures urine culture and sputum cultures have shown no growth. She's had no acute events overnight. We will consult the surgical services for possibility tracheostomy and PEG tube placement, the family would like to see if patient can potentially wean from the ventilator, we will proceed with the daily interruption of sedation spontaneous breathing trials today. On 05/08/2021 patient seen in follow-up in intensive care unit, she is sedated and intubated on assist control mode of ventilation with a rate of 34, tidal volume 300, FiO2 of 50% and PEEP of 5. This morning's blood gas showed a pO2 of 71, pCO2 of 50, and pH of 7.47 this was done on the above-mentioned settings. Yesterday patient had failed spontaneous breathing trials, she became very tachypneic, R SBI was 107, her mentation remained altered through the weaning trials, she was not completely awake, she was breathing fast, she was tachycardic, she was requiring Precedex doing the breathing trials. She was placed back on assist control mode of ventilation for the night. Is currently on Diprivan at 50 mics per kilo per minute, and fentanyl at 1.2 mics per kilo per minute, point, seen at a rate of 20 ML per hour, today's chest x-ray has been reviewed showing bilateral airspace disease, ARDS. Her peak pressure on the ventilator this morning is 13, and plateau pressure is 22. Patient is still quite tachypneic, asynchronous with the vent, and subsequently patient was placed on VC+ mode of ventilation with a rate of 28, tidal vital 375, inspiratory time of 0.8 seconds, FiO2 of 50% and PEEP was increased to 10. Patient was adequately sedated, and blood gas was repeated showing pO2 of 64, pCO2 of 52, and pH of 7.45 [address] was on the CT plus mode of ventilation, and subsequently her PEEP was increased to 12. Patient seems to be breathing more comfortably, she is less tachypneic. The rest of her labs have been reviewed showing white blood cell count of 9.3, hemoglobin of 11.5, sodium is 140, potassium is 3.4, chloride is 104, CO2 is 37, BUN is 15, creatinine 0.52. AST is improving and is down to 59, ALT is 1:30 is also improved, and her LDH is improved and down to 764, CRP is 1.3, patient's pro-calcitonin level was negative at 0.14, patient has completed a course of cefepime. However there is still some thick yellow secretions being suctioned from the ET tube which will be sent for cultures today. Patient currently remains on Decadron 6 mg daily, Lovenox 100 mg twice daily, multivitamins, she is also on Seroquel 50 mg twice daily for underlying anxiety. Patient has failed sedation holiday today Objective - Vital Signs Vital signs: Vital Signs Temp 99 F 05/08/21 08:00 Pulse 105 H 05/08/21 10:00 Resp 21 05/08/21 10:00 BP 96/54 05/08/21 09:00 Pulse Ox 90 L 05/08/21 10:00 Intake & Output 05/07/21 05/08/21 05/08/21 18:59 06:59 18:59 Intake Total 6749.319 4103.608 262.000 Output Total 2400 1220 500 Balance -1341.147 91.608 -238.000 Weight 112 kg 109.3 kg Intake: IV 353 299 69 Cefepime 2 gm In Sodium 100 Chloride 0.9% 100 ml @ 25 mls/hr IVPB Q8HR [facility] Rx# :[id number] Pressure Bag 33 39 9 Sodium Chloride 0.9% 1, 220 260 60 000 ml @ 20 mls/hr IV . Q24H [facility] Rx#:[id number] Intake, IV Titration 284.853 649.608 100.000 Amount Dexmedetomidine/0.9% NaCl 2.893 77.14 (Pmx) 400 mcg In Empty Bag 1 bag @ 0.2 MCG/KG/HR 5.6 mls/hr IV .[id number] [facility] Rx#:[id number] fentaNYL (PF) 2,500 mcg 144.092 200.048 In Sodium Chloride 0.9% 200 ml @ 0.5 MCG/KG/HR 5. 23 mls/hr IV .Q24H [facility] Rx #:[id number] propofoL 1,000 mg In 137.868 372.420 100.000 Empty Bag 1 bag @ Titrate IV .Q0M [facility] Rx#: [id number] Tube Feeding 231 273 63 Other 190 90 30 Output: Urine 2400 1220 500 Other: Voiding Method Indwelling Catheter Indwelling Catheter Indwelling Catheter ABP, PAP, CO, CI - Last Documented Arterial Blood Pressure 110/57 - Exam GENERAL EXAM: Today, and intubated, 46-year-old female, on assist-control mode of ventilation with a rate of 34, tidal volume is 300, FiO2 of 50% and PEEP of 5, sedated with Diprivan at 50 mics per kilo per minute, and Fentanyl infusion at 1 mics per kilo per minute, currently not on any paralytics a bit tachypneic and tachycardic, patient is not tolerating a lower level of sedation at this point, and required sedation to be increased HEAD: Normocephalic/atraumatic. EYES: Normal reaction of pupils, equal size. Conjunctiva pink, sclera white. NOSE: Clear with pink turbinates. THROAT: No erythema or exudates. NECK: No masses, no JVD, no thyroid enlargement, no adenopathy. CHEST: No chest wall deformity. Symmetrical expansion. LUNGS: Equal air entry with no crackles, wheeze, rhonchi or dullness. CVS: Regular rate and rhythm, normal S1 and S2, no gallops, no murmurs, no rubs ABDOMEN: Soft, nontender. No hepatosplenomegaly, normal bowel sounds, no guarding or rigidity. EXTREMITIES: No clubbing, no edema, no cyanosis, 2+ pulses and upper and lower extremities. MUSCULOSKELETAL: Muscle strength and tone normal. SPINE: No scoliosis or deformity SKIN: No rashes CENTRAL NERVOUS SYSTEM: Intubated and sedated. No focal deficits, tone is normal in all 4 extremities. - Labs CBC & Chem 7: 05/08/21 04:25 05/08/21 04:25 Labs: Abnormal Lab Results - Last 24 Hours (Table) 05/07/21 05/07/21 05/08/21 Range/Units 11:45 12:21 04:25 RBC 3.71 L (3.80-5.40) m/uL ABG pH (7.35-7.45) ABG pCO2 57 H (35-45) mmHg ABG pO2 75 L (83-108) mmHg ABG HCO3 39 H (21-25) mmol/L ABG Total CO2 40 H (19-24) mmol/L ABG O2 Saturation (94-97) % Potassium (3.5-5.1) mmol/L Carbon Dioxide (22-30) mmol/L POC Glucose (mg/dL) 105 H (75-99) mg/dL AST (14-36) U/L ALT (4-34) U/L Lactate Dehydrogenase (313-618) U/L C-Reactive Protein (<1.0) mg/dL Total Protein (6.3-8.2) g/dL Albumin (3.5-5.0) g/dL 05/08/21 05/08/21 05/08/21 Range/Units 04:25 05:21 05:53 RBC (3.80-5.40) m/uL ABG pH 7.47 H (7.35-7.45) ABG pCO2 50 H (35-45) mmHg ABG pO2 71 L (83-108) mmHg ABG HCO3 37 H (21-25) mmol/L ABG Total CO2 38 H (19-24) mmol/L ABG O2 Saturation (94-97) % Potassium 3.4 L (3.5-5.1) mmol/L Carbon Dioxide 37 H (22-30) mmol/L POC Glucose (mg/dL) 67 L (75-99) mg/dL AST 59 H (14-36) U/L ALT 130 H (4-34) U/L Lactate Dehydrogenase 764 H (313-618) U/L C-Reactive Protein 1.3 H (<1.0) mg/dL Total Protein 6.0 L (6.3-8.2) g/dL Albumin 2.7 L (3.5-5.0) g/dL 05/08/21 Range/Units 09:37 RBC (3.80-5.40) m/uL ABG pH 7.46 H (7.35-7.45) ABG pCO2 53 H (35-45) mmHg ABG pO2 65 L (83-108) mmHg ABG HCO3 37 H (21-25) mmol/L ABG Total CO2 39 H (19-24) mmol/L ABG O2 Saturation 93.2 L (94-97) % Potassium (3.5-5.1) mmol/L Carbon Dioxide (22-30) mmol/L POC Glucose (mg/dL) (75-99) mg/dL AST (14-36) U/L ALT (4-34) U/L Lactate Dehydrogenase (313-618) U/L C-Reactive Protein (<1.0) mg/dL Total Protein (6.3-8.2) g/dL Albumin (3.5-5.0) g/dL Assessment and Plan Plan: Assessment: #1. Acute hypoxic respiratory failure secondary to COVID-19 pneumonia. Patient is a non-vaccinated adult. Initial diagnosis was established on 04/13/2021, patient was hospitalized and discharged home on 04/18/2021, readmitted with worsening hypoxia and dyspnea, and intubated on 04/27/2021. She remains intubated and mechanically ventilated today on 05/06/2021. Patient was initially placed on Baricitinib which was discontinued because of concern of infection related to mildly elevated pro calcitonin. Currently pro calcitonin level is improved, patient remains on cefepime for empiric antibiotic coverage with no positive bacterial growth on cultures except for staph epidermidis on blood culture which is likely skin contamination #2. Acute right lower lobe pulmonary embolism and right popliteal DVT, currently on therapeutic dose of Lovenox 100 mg twice daily #3. Acute respiratory acidosis, improved, compensated #4. History of hypothyroidism #5. History of marijuana smoking #6. Anxiety #7. Increased LFTs, likely related to viral pneumonia, improved Plan: Today's chest x-ray, blood gases, labs reviewed Patient did not tolerate clinical data management manager sedation this morning She is quite tachypneic, with increased work of breathing, tachycardic She has increased minute ventilation Patient failed spontaneous breathing trials yesterday, We will switch to VC+ mode of ventilation, with a rate of 30, target volume of 375, FiO2 of 50% and PEEP of 12 Patient is to be adequately sedated with the combination of Diprivan and fentanyl No spontaneous breathing trials today as the patient has failed sedation holiday Send sputum culture Continue nutritional support Continue Decadron, continue current dose Lovenox We'll proceed with tracheostomy and PEG tube placement We will ask surgery to place the patient on schedule within the next availability opens up We'll continue to closely follow I performed a history & physical examination of the patient and discussed their management with my nurse practitioner, Maribeth Pereira. I reviewed the nurse practitioner's note and agree with the documented findings and plan of care. Lung sounds are positive for dim breath sounds throughout the lung tai. The findings and the impression was discussed with the patient. I attest to the documentation by the nurse practitioner. Time with Patient: Greater than 30
[2021-05-08 11:48] LABS: Glucose,Whole Blood 97 mg/dL (75-99)
[2021-05-08] MEDS: SODIUM CHLORIDE 0.9% 500 ML 500 ML IV SCH (14:06)
--- NOTE | 2021-05-08 14:26 | P.GSCN ---
<Arabella Diaz - Last Filed: 05/08/21 14:11> History of Present Illness Consult date: 05/08/21 Reason for Consult: Tracheostomy and PEG tube placement Requesting physician: Ricardo Casanova History of present illness: CHIEF COMPLAINT: COVID-19 pneumonia HISTORY OF PRESENT ILLNESS: This is a 46-year-old female who presented with worsening shortness of breath. She was initially diagnosed with colon on April 13 and was hospitalized and discharged on 04/18/2021. She presented back to the emergency department with complaints of shortness of breath and required to be readmitted to the hospital due to shortness of breath and hypoxia. The patient was subsequently intubated, 2021. She remains in the ICU on mechani julius ventilation and sedation. Patient had elevated d-dimer on admission and was diagnosed with a right lower lobe pulmonary embolism as well as a right lower extremity deep vein thrombosis. She's been maintained on Lovenox 100 mg twice daily. Surgical services was consulted for tracheostomy and PEG tube placement. PAST MEDICAL HISTORY: Hypothyroidism, anxiety PAST SURGICAL HISTORY: Hysterectomy MEDICATIONS: See list. ALLERGIES: See list. SOCIAL HISTORY: Occasional marijuana use REVIEW OF SYSTEMS: Unable to obtain due to sedation and mechanical ventilation. PHYSICAL EXAM: VITAL SIGNS: Reviewed GENERAL: The dated on mechanical ventilation. HEENT: No sclera icterus. Head is atraumatic, normocephalic. No nasal drainage. ABDOMEN: Soft. Thin. Nondistended. NEUROLOGIC: Sedated on mechanical ventilation. LABORATORY DATA: WBC 9.3 hemoglobin 11.5 hematocrit 36 platelet count 384,000 Sodium 140 potassium 3.4 glucose 94 BUN 15 creatinine 0.52 Total bilirubin 0.7 AST 59 ALT 1:30 alk phos 82 albumin 2.7 IMAGING: ASSESSMENT: 1. Acute hypoxic respiratory failure secondary to COVID-19 pneumonia. 2. Severe Protein calorie malnutrition 3. Right lower lobe pulmonary embolism and right leg DVT on Lovenox PLAN: -Patient tentatively scheduled for tracheostomy and PEG tube placement on 05/10/[address] Chavez -Hold tube feedings after midnight -Hold Lovenox evening and Thursday morning -Plan of care will be discussed with the patient's son Fadi, consent will need to be obtained if agreeable. Thank you for this consultation The impression and plan of care has been dictated as directed. I performed a history and examination of this patient, discussed the same with the dictator. I agree with the dictator's note ,documented as a scribe. Any additional findings or plans will be noted. Past Medical History Past Medical History: GERD/Reflux, Pneumonia (COVID 19 infection on 04/11/2021), Thyroid Disorder Additional Past Medical History / Comment(s): overactive bladder History of Any Multi-Drug Resistant Organisms: None Reported Past Surgical History: Hysterectomy Additional Past Surgical History / Comment(s): partial hysterectomy, 09/11/14 t hyroid removal Past Anesthesia/Blood Transfusion Reactions: No Reported Reaction Past Psychological History: Anxiety Smoking Status: Never smoker Past Alcohol Use History: Occasional Past Drug Use History: Marijuana Additional Drug Use History / Comment(s): occassional use of marijuana per pt - Past Family History Mother Family Medical History: Cancer, Hypertension Additional Family Medical History / Comment(s): colon cancer. maternal aunt with breast cancer age 40 Sister(s) Family Medical History: Cancer Additional Family Medical History / Comment(s): breast cancer age 49 Father Family Medical History: Hypertension Additional Family Medical History / Comment(s): paternal gradmother breast cancer age 80 Medications and Allergies Home Medications Medication Instructions Recorded Confirmed Type Levothyroxine Sodium [Synthroid] 112 mcg PO DAILY 04/13/21 04/20/21 History predniSONE 50 mg PO DAILY #5 tab 04/21/21 Rx Allergies Allergy/AdvReac Type Severity Reaction Status Date / Time No Known Allergies Allergy Verified 04/20/21 23:23 Surgical - Exam Vital Signs Temp Pulse Resp BP Pulse Ox 100.7 F H 121 H 24 118/107 87 L 04/20/21 22:34 04/20/21 22:34 04/20/21 22:34 04/20/21 22:34 04/20/21 22:34 Results - Labs 05/08/21 04:25 05/08/21 04:25 Abnormal Lab Results - Last 24 Hours (Table) 05/07/21 05/08/21 05/08/21 Range/Units 12:21 04:25 04:25 RBC 3.71 L (3.80-5.40) m/uL ABG pH (7.35-7.45) ABG pCO2 57 H (35-45) mmHg ABG pO2 75 L (83-108) mmHg ABG HCO3 39 H (21-25) mmol/L ABG Total CO2 40 H (19-24) mmol/L ABG O2 Saturation (94-97) % Potassium 3.4 L (3.5-5.1) mmol/L Carbon Dioxide 37 H (22-30) mmol/L POC Glucose (mg/dL) (75-99) mg/dL AST 59 H (14-36) U/L ALT 130 H (4-34) U/L Lactate Dehydrogenase 764 H (313-618) U/L C-Reactive Protein 1.3 H (<1.0) mg/dL Total Protein 6.0 L (6.3-8.2) g/dL Albumin 2.7 L (3.5-5.0) g/dL 05/08/21 05/08/21 05/08/21 Range/Units 05:21 05:53 09:37 RBC (3.80-5.40) m/uL ABG pH 7.47 H 7.46 H (7.35-7.45) ABG pCO2 50 H 53 H (35-45) mmHg ABG pO2 71 L 65 L (83-108) mmHg ABG HCO3 37 H 37 H (21-25) mmol/L ABG Total CO2 38 H 39 H (19-24) mmol/L ABG O2 Saturation 93.2 L (94-97) % Potassium (3.5-5.1) mmol/L Carbon Dioxide (22-30) mmol/L POC Glucose (mg/dL) 67 L (75-99) mg/dL AST (14-36) U/L ALT (4-34) U/L Lactate Dehydrogenase (313-618) U/L C-Reactive Protein (<1.0) mg/dL Total Protein (6.3-8.2) g/dL Albumin (3.5-5.0) g/dL Diabetes panel 05/08/21 Range/Units 04:25 Sodium 140 (137-145) mmol/L Potassium 3.4 L (3.5-5.1) mmol/L Chloride 104 (98-107) mmol/L Carbon Dioxide 37 H (22-30) mmol/L BUN 15 (7-17) mg/dL Creatinine 0.52 (0.52-1.04) mg/dL Glucose 94 (74-99) mg/dL Calcium 8.5 (8.4-10.2) mg/dL AST 59 H (14-36) U/L ALT 130 H (4-34) U/L Alkaline Phosphatase 82 (38-126) U/L Total Protein 6.0 L (6.3-8.2) g/dL Albumin 2.7 L (3.5-5.0) g/dL Calcium panel 05/08/21 Range/Units 04:25 Calcium 8.5 (8.4-10.2) mg/dL Albumin 2.7 L (3.5-5.0) g/dL Pituitary panel 05/08/21 Range/Units 04:25 Sodium 140 (137-145) mmol/L Potassium 3.4 L (3.5-5.1) mmol/L Chloride 104 (98-107) mmol/L Carbon Dioxide 37 H (22-30) mmol/L BUN 15 (7-17) mg/dL Creatinine 0.52 (0.52-1.04) mg/dL Glucose 94 (74-99) mg/dL Calcium 8.5 (8.4-10.2) mg/dL Adrenal panel 05/08/21 Range/Units 04:25 Sodium 140 (137-145) mmol/L Potassium 3.4 L (3.5-5.1) mmol/L Chloride 104 (98-107) mmol/L Carbon Dioxide 37 H (22-30) mmol/L BUN 15 (7-17) mg/dL Creatinine 0.52 (0.52-1.04) mg/dL Glucose 94 (74-99) mg/dL Calcium 8.5 (8.4-10.2) mg/dL Total Bilirubin 0.7 (0.2-1.3) mg/dL AST 59 H (14-36) U/L ALT 130 H (4-34) U/L Alkaline Phosphatase 82 (38-126) U/L Total Protein 6.0 L (6.3-8.2) g/dL Albumin 2.7 L (3.5-5.0) g/dL <Paolo Chavez - Last Filed: 05/09/21 13:46> History of Present Illness History of present illness: I have personally seen and examined the patient, reviewed the SPINDLE PLUMBER /PAs history, exam and MDM and agree with the assessment and plan as written. Based on total visit time, I have performed more than 50% of the visit. As above. Patient with Covid pneumonia. She is failing weaning trials. We'll tentatively plan tracheostomy and PEG tube placement Thursday. We'll discuss the case with the patient's son tomorrow at the 's request. Surgical - Exam Vital Signs Temp Pulse Resp BP Pulse Ox 100.7 F H 121 H 24 118/107 87 L 04/20/21 22:34 04/20/21 22:34 04/20/21 22:34 04/20/21 22:34 04/20/21 22:34 Results - Labs 05/09/21 03:50 05/09/21 03:50 Abnormal Lab Results - Last 24 Hours (Table) 05/08/21 05/09/21 05/09/21 Range/Units 23:58 03:50 03:50 RBC 3.48 L (3.80-5.40) m/uL Hgb 10.8 L (11.4-16.0) gm/dL ABG pCO2 (35-45) mmHg ABG pO2 (83-108) mmHg ABG HCO3 (21-25) mmol/L ABG Total CO2 (19-24) mmol/L ABG O2 Saturation (94-97) % Carbon Dioxide 35 H (22-30) mmol/L Creatinine 0.33 L (0.52-1.04) mg/dL POC Glucose (mg/dL) 71 L (75-99) mg/dL AST 44 H (14-36) U/L ALT 108 H (4-34) U/L Total Protein 5.8 L (6.3-8.2) g/dL Albumin 2.6 L (3.5-5.0) g/dL 05/09/21 Range/Units 05:45 RBC (3.80-5.40) m/uL Hgb (11.4-16.0) gm/dL ABG pCO2 56 H (35-45) mmHg ABG pO2 63 L (83-108) mmHg ABG HCO3 38 H (21-25) mmol/L ABG Total CO2 40 H (19-24) mmol/L ABG O2 Saturation 92.2 L (94-97) % Carbon Dioxide (22-30) mmol/L Creatinine (0.52-1.04) mg/dL POC Glucose (mg/dL) (75-99) mg/dL AST (14-36) U/L ALT (4-34) U/L Total Protein (6.3-8.2) g/dL Albumin (3.5-5.0) g/dL Microbiology - Last 24 Hours (Table) 05/08/21 23:20 Sputum Culture - Preliminary Sputum Diabetes panel 05/08/21 05/09/21 Range/Units 18:56 03:50 Sodium 137 (137-145) mmol/L Potassium 4.1 3.7 (3.5-5.1) mmol/L Chloride 102 (98-107) mmol/L Carbon Dioxide 35 H (22-30) mmol/L BUN 13 (7-17) mg/dL Creatinine 0.33 L (0.52-1.04) mg/dL Glucose 89 (74-99) mg/dL Calcium 8.6 (8.4-10.2) mg/dL AST 44 H (14-36) U/L ALT 108 H (4-34) U/L Alkaline Phosphatase 74 (38-126) U/L Total Protein 5.8 L (6.3-8.2) g/dL Albumin 2.6 L (3.5-5.0) g/dL Calcium panel 05/09/21 Range/Units 03:50 Calcium 8.6 (8.4-10.2) mg/dL Albumin 2.6 L (3.5-5.0) g/dL Pituitary panel 05/08/21 05/09/21 Range/Units 18:56 03:50 Sodium 137 (137-145) mmol/L Potassium 4.1 3.7 (3.5-5.1) mmol/L Chloride 102 (98-107) mmol/L Carbon Dioxide 35 H (22-30) mmol/L BUN 13 (7-17) mg/dL Creatinine 0.33 L (0.52-1.04) mg/dL Glucose 89 (74-99) mg/dL Calcium 8.6 (8.4-10.2) mg/dL Adrenal panel 05/08/21 05/09/21 Range/Units 18:56 03:50 Sodium 137 (137-145) mmol/L Potassium 4.1 3.7 (3.5-5.1) mmol/L Chloride 102 (98-107) mmol/L Carbon Dioxide 35 H (22-30) mmol/L BUN 13 (7-17) mg/dL Creatinine 0.33 L (0.52-1.04) mg/dL Glucose 89 (74-99) mg/dL Calcium 8.6 (8.4-10.2) mg/dL Total Bilirubin 0.6 (0.2-1.3) mg/dL AST 44 H (14-36) U/L ALT 108 H (4-34) U/L Alkaline Phosphatase 74 (38-126) U/L Total Protein 5.8 L (6.3-8.2) g/dL Albumin 2.6 L (3.5-5.0) g/dL
[2021-05-08 17:45] LABS: Glucose,Whole Blood 87 mg/dL (75-99)
[2021-05-09] LABS: Glucose,Whole Blood 71 mg/dL (75-99)
[2021-05-09] MEDS: INSULIN ASPART (NovoLOG) 100 UNIT/ML VIAL SQ SCH ×4 (00:19→18:12)
[2021-05-09 04:13] LABS: HCT 34.6 % (34.0-46.0); HGB 10.8 gm/dL (11.4-16.0); MCH 31.1 pg (25.0-35.0); MCHC 31.2 g/dL (31.0-37.0); MCV 99.5 fL (80.0-100.0); Macrocytosis Slight; Mean Platelet Volume 9.1; Platelet Count 326 k/uL (150-450); RBC 3.48 m/uL (3.80-5.40); RDW 14.8 % (11.5-15.5)
[2021-05-09 04:32] LABS: ALT 108 U/L (4-34); AST 44 U/L (14-36); African American GFR (CKD) >90 (>60 ml/min/1.73 sqM); Albumin 2.6 g/dL (3.5-5.0); Alkaline Phosphatase 74 U/L (38-126); Anion Gap 0 mmol/L; Blood Urea Nitrogen 13 mg/dL (7-17); Calcium 8.6 mg/dL (8.4-10.2); Carbon Dioxide 35 mmol/L (22-30); Chloride 102 mmol/L (98-107); Glucose 89 mg/dL (74-99); Non-African American GFR(CKD) >90 (>60 ml/min/1.73 sqM); Potassium 3.7 mmol/L (3.5-5.1); Sodium 137 mmol/L (137-145); Total Bilirubin 0.6 mg/dL (0.2-1.3); Total Protein 5.8 g/dL (6.3-8.2)
[2021-05-09] MEDS ORDERED: POTASSIUM BICARBONATE/CIT AC 20 MEQ TABLET.EFF NG-TUBE SCH (05:00)
[2021-05-09 05:46] LABS: ABG Base Excess 13.6 mmol/L; ABG HCO3 38 mmol/L (21-25); ABG Oxygen Saturation 92.2 % (94-97); ABG PCO2 56 mmHg (35-45); ABG PH 7.44 (7.35-7.45); ABG PO2 63 mmHg (83-108); ABG TCO2 40 mmol/L (19-24); Allen Test Performed? Yes
[2021-05-09 06:09] LABS: Glucose,Whole Blood 82 mg/dL (75-99)
[2021-05-09] MEDS: LEVOTHYROXINE 112 MCG TAB PO SCH (06:18)
[2021-05-09] MEDS: fentaNYL (PF) 2,500 MCG in SODIUM CHLORIDE 0.9% 200 ML IV SCH ×2 (07:24→23:21)
[2021-05-09] MEDS: ALBUTEROL HFA INHALER INHALATION SCH ×4 (07:25→20:54)
[2021-05-09] MEDS: CHLORHEXIDINE GLUCONATE 15 ML CUP MUCOUS MEM SCH ×2 (09:32→21:09)
[2021-05-09] MEDS: ZINC SULFATE 220 MG CAP PO SCH (09:32)
[2021-05-09] MEDS: PANTOPRAZOLE 40 MG/10 ML VIAL IVP SCH (09:32)
[2021-05-09] MEDS: CHOLECALCIFEROL 125 MCG (5000 IU) TABLET PO SCH (09:32)
[2021-05-09] MEDS: ASCORBIC ACID 500 MG TAB PO SCH (09:32)
[2021-05-09] MEDS: DEXAMETHASONE SOD PHOSPHATE 10 MG/ML 1 ML VIAL IVP SCH (09:32)
[2021-05-09] MEDS: QUEtiapine 50 MG TAB PO SCH ×2 (09:33→21:09)
[2021-05-09] MEDS: ENOXAPARIN 100 MG/ML SYRINGE SQ SCH ×2 (09:33→19:47)
--- NOTE | 2021-05-09 09:34 | XR ---
EXAMINATION TYPE: XR chest 1V portable DATE OF EXAM: 05/09/2021 COMPARISON: Chest x-ray 05/08/2021 HISTORY: Covid positive, intubated TECHNIQUE: Single frontal view of the chest is obtained. FINDINGS: Endotracheal tube, NG tube, right-sided PICC line are again noted, side-port of the NG tub e is in proximity to the gastroesophageal junction. There is no evident pneumothorax or pleural effus ion. Bilateral airspace disease may be somewhat less confluent although there are differences in tech nique. There are overlying artifacts. Cardiac mediastinal silhouette is stable. IMPRESSION: Findings consistent with Covid pneumonia, correlate for ARDS
--- NOTE | 2021-05-09 10:58 | P.PN ---
Subjective Progress Note Date: 05/09/21 Principal diagnosis: Acute COVID-19 pneumonia On 05/06/2021 patient seen in follow-up in the intensive care unit. Patient remains intubated, sedated on assist control mode of ventilation with a rate of 34, tidal vgtoad458, FiO2 50% and PEEP of 12, this was blood gas shows pO2 of 85, pCO2 of 61, and pH of 7.40, and this was done and above-mentioned ventilator settings, patient is sedated with Diprivan and a 60 mics per kilo per minute, and fentanyl at 2.0 mics per kilo per minute, 0.9 normal saline at a rate of 20 ML per hour. She is receiving tube feedings with vital HP at a rate of 21 with a goal of 21, and standard water flushes, today's chest x-ray shows diffuse bi lateral infiltrates and pleural effusions are stable in appearance. Patient currently remains on dexamethasone 6 mg every 12 hours, she is on prophylactic dose of Lovenox 100 mg twice daily, she is on Seroquel 25 mg twice daily, she is on multivitamins, she is on cefepime for antibiotic coverage and Ventolin and Symbicort. Patient's blood culture from 04/27/2021 showed staph epidermidis likely skin contaminant, follow blood culture and sputum cultures have shown no growth, urine culture was also negative. Hemodynamically patient has remained stable, no vasopressor support. She is in sinus mechanism. She has been afebrile. She is tolerating her tube feedings. His labs have been reviewed, white blood cell count is 8.3, hemoglobin is 11.9, sodium is 140, potassium 4.2, chloride is 103, CO2 38, B1 17, creatinine 0.50, AST was 70, improved value, and ALT was 146, fairly stable, alk phos was within normal limits. Her inflammatory markers were improving on the labs from 04/29/2021. Her d-dimer was also improving and was down to 5.07. Her lower extremity Doppler showed a DVT in the right popliteal vein. Patient also had a questionable right lower lobe PE involving subsegmental branches the initial CT angiogram of the chest from 04/24/2021. On 05/07/2021 patient seen in follow-up in intensive care unit, she is currently sedated and intubated on assist control mode of ventilation with a rate of 34, Tylenol 300, FiO2 of 50% and PEEP 8. This morning's blood gas shows pO2 of 98, pCO2 of 57, and pH of 7.44. Today's chest x-ray has been reviewed showing bilateral infiltrates stable in appearance. Patient is currently on 0.9 normal saline at rate of 20 ML per hour, Diprivan and is at 35 mics per kilo per minute, and fentanyl infusion at 1 nadia per kilo per minute, she is tolerating tube feeding she is on vital HP at 21 with standard water flushes 30 mL every 4 hours, today's labs have been reviewed, white blood cell count is 8.3, hemoglobin is 11.7, platelet count is 405, sodium is 136, potassium is 4.3, chloride is 99, CO2 is 37, BUN 16 creatinine 0.46. AST is improving and is down to 69, ALT is 148, relatively stable compared to yesterday, LDH is improved and is down to 835, CRP is 1.0, follow pro-calcitonin is 0.14. Patient remains on cefepime, and she has completed 10 day course of treatment. Single blood culture from was positive for staph epidermidis likely skin contaminant, follow blood cultures urine culture and sputum cultures have shown no growth. She's had no acute events overnight. We will consult the surgical services for possibility tracheostomy and PEG tube placement, the family would like to see if patient can potentially wean from the ventilator, we will proceed with the daily interruption of sedation spontaneous breathing trials today. On 05/08/2021 patient seen in follow-up in intensive care unit, she is sedated and intubated on assist control mode of ventilation with a rate of 34, tidal volume 300, FiO2 of 50% and PEEP of 5. This morning's blood gas showed a pO2 of 71, pCO2 of 50, and pH of 7.47 this was done on the above-mentioned settings. Yesterday patient had failed spontaneous breathing trials, she became very tachypneic, R SBI was 107, her mentation remained altered through the weaning trials, she was not completely awake, she was breathing fast, she was tachycardic, she was requiring Precedex doing the breathing trials. She was placed back on assist control mode of ventilation for the night. Is currently on Diprivan at 50 mics per kilo per minute, and fentanyl at 1.2 mics per kilo per minute, point, seen at a rate of 20 ML per hour, today's chest x-ray has been reviewed showing bilateral airspace disease, ARDS. Her peak pressure on the ventilator this morning is 13, and plateau pressure is 22. Patient is still quite tachypneic, asynchronous with the vent, and subsequently patient was placed on VC+ mode of ventilation with a rate of 28, tidal vital 375, inspiratory time of 0.8 seconds, FiO2 of 50% and PEEP was increased to 10. Patient was adequately sedated, and blood gas was repeated showing pO2 of 64, pCO2 of 52, and pH of 7.[address] was on the CT plus mode of ventilation, and subsequently her PEEP was increased to 12. Patient seems to be breathing more comfortably, she is less tachypneic. The rest of her labs have been reviewed showing white blood cell count of 9.3, hemoglobin of 11.5, sodium is 140, potassium is 3.4, chloride is 104, CO2 is 37, BUN is 15, creatinine 0.52. AST is improving and is down to 59, ALT is 1:30 is also improved, and her LDH is improved and down to 764, CRP is 1.3, patient's pro-calcitonin level was negative at 0.14, patient has completed a course of cefepime. However there is still some thick yellow secretions being suctioned from the ET tube which will be sent for cultures today. Patient currently remains on Decadron 6 mg daily, Lovenox 100 mg twice daily, multivitamins, she is also on Seroquel 50 mg twice daily for underlying anxiety. Patient has failed sedation holiday today. On 05/09/2021 patient seen in follow-up in intensive care unit, she is currently sedated, and intubated on mechanical ventilator, on the pressure assist mode of ventilation, with PI of 20, inspiratory time of 0.9 seconds, FiO2 of 50%, respiratory rate of 28, and PEEP of 12, this morning's blood gas shows pO2 of 63, pCO2 of 56, and pH of 7.44, this was done in the above mentioned vent settings, his chest x-ray is showing findings consistent with a with pneumonia, bilateral airspace disease that appeared to be somewhat less confluent although there are differences in the technique. Patient is currently on Diprivan at 60 mics per kilo per minute, fentanyl drip is at 1.5 mics per kilo per minute, 0.9 at 20 ML per hour. Today's labs have been reviewed, 1 bottle, is 10.0, hemoglobin is 10.8, sodium is 137, potassium is 3.7, chloride is 102, CO2 35, BUN is 13, creatinine 0.33. AST continues to improve and is down to 44, ALT is down to 108, and alkaline phosphatase remains in the normal range at 74, her LDH and CRP were improving on yesterday's labs, today's levels are still pending. Sputum culture was sent yesterday, preliminary Gram stain and final culture are still pending, patient recently completed a full course of cefepime. Most recent pro-calcitonin level was negative at 0.14 on 05/07/2021. She has had no fevers overnight. Patient was given a insole department worker sedation yesterday however she could not tolerate it, she was extremely tachypneic, tachycardic, and the day before she failed spontaneous breathing trials. Surgical consultation was requested for evaluation for tracheostomy and PEG tube placement. Family has made a request to switch surgical consultation to the surgeon of their choosing. Request was accommodated. Objective - Vital Signs Vital signs: Vital Signs Temp 98 F 05/09/21 08:00 Pulse 89 05/09/21 08:00 Resp 28 H 05/09/21 08:00 BP 96/54 05/09/21 08:00 Pulse Ox 98 05/09/21 08:00 Intake & Output 05/08/21 05/09/21 05/09/21 18:59 06:59 18:59 Intake Total 0685.122 3438.079 311.06 Output Total 1835 1420 135 Balance -627.654 -385.921 176.06 Weight 108.4 kg Intake: IV 253 276 46 Pressure Bag 33 36 6 Sodium Chloride 0.9% 1, 220 240 40 000 ml @ 20 mls/hr IV . Q24H [facility] Rx#:[id number] Intake, IV Titration 633.346 416.079 223.06 Amount fentaNYL (PF) 2,500 mcg 233.346 223.06 In Sodium Chloride 0.9% 200 ml @ 0.5 MCG/KG/HR 5. 23 mls/hr IV .Q24H [facility] Rx #:[id number] propofoL 1,000 mg In 400.000 416.079 Empty Bag 1 bag @ Titrate IV .Q0M [facility] Rx#: [id number] Tube Feeding 231 252 42 Other 90 90 Output: Urine 1835 1420 135 Other: Voiding Method Indwelling Catheter Indwelling Catheter ABP, PAP, CO, CI - Last Documented Arterial Blood Pressure 99/51 - Exam GENERAL EXAM: Today, and intubated, 46-year-old female, on pressure control mode of ventilation with a PI of 20, TI of 0.9 sec, FiO2 of 50% and PEEP of 12, and a resp rate of 28, sedated with Diprivan at 60 mics per kilo per minute, and Fentanyl infusion at 1,5 mics per kilo per minute, currently not on any paralytics, appears be in no acute distress HEAD: Normocephalic/atraumatic. EYES: Normal reaction of pupils, equal size. Conjunctiva pink, sclera white. NOSE: Clear with pink turbinates. THROAT: No erythema or exudates. NECK: No masses, no JVD, no thyroid enlargement, no adenopathy. CHEST: No chest wall deformity. Symmetrical expansion. LUNGS: Equal air entry with no crackles, wheeze, rhonchi or dullness. CVS: Regular rate and rhythm, normal S1 and S2, no gallops, no murmurs, no rubs ABDOMEN: Soft, nontender. No hepatosplenomegaly, normal bowel sounds, no guarding or rigidity. EXTREMITIES: No clubbing, no edema, no cyanosis, 2+ pulses and upper and lower extremities. MUSCULOSKELETAL: Muscle strength and tone normal. SPINE: No scoliosis or deformity SKIN: No rashes CENTRAL NERVOUS SYSTEM: Intubated and sedated. No focal deficits, tone is nor mal in all 4 extremities. - Labs CBC & Chem 7: 05/09/21 03:50 05/09/21 03:50 Labs: Abnormal Lab Results - Last 24 Hours (Table) 05/08/21 05/09/21 05/09/21 Range/Units 23:58 03:50 03:50 RBC 3.48 L (3.80-5.40) m/uL Hgb 10.8 L (11.4-16.0) gm/dL ABG pCO2 (35-45) mmHg ABG pO2 (83-108) mmHg ABG HCO3 (21-25) mmol/L ABG Total CO2 (19-24) mmol/L ABG O2 Saturation (94-97) % Carbon Dioxide 35 H (22-30) mmol/L Creatinine 0.33 L (0.52-1.04) mg/dL POC Glucose (mg/dL) 71 L (75-99) mg/dL AST 44 H (14-36) U/L ALT 108 H (4-34) U/L Total Protein 5.8 L (6.3-8.2) g/dL Albumin 2.6 L (3.5-5.0) g/dL 05/09/21 Range/Units 05:45 RBC (3.80-5.40) m/uL Hgb (11.4-16.0) gm/dL ABG pCO2 56 H (35-45) mmHg ABG pO2 63 L (83-108) mmHg ABG HCO3 38 H (21-25) mmol/L ABG Total CO2 40 H (19-24) mmol/L ABG O2 Saturation 92.2 L (94-97) % Carbon Dioxide (22-30) mmol/L Creatinine (0.52-1.04) mg/dL POC Glucose (mg/dL) (75-99) mg/dL AST (14-36) U/L ALT (4-34) U/L Total Protein (6.3-8.2) g/dL Albumin (3.5-5.0) g/dL Microbiology - Last 24 Hours (Table) 05/08/21 23:20 Sputum Culture - Preliminary Sputum Assessment and Plan Plan: Assessment: #1. Acute hypoxic respiratory failure secondary to COVID-19 pneumonia. Patient is a non-vaccinated adult. Initial diagnosis was established on 04/13/2021, patient was hospitalized and discharged home on 04/18/2021, readmitted with worsening hypoxia and dyspnea, and intubated on 04/27/2021. She remains intubated and mechanically ventilated today on 05/06/2021. Patient was initially placed on Baricitinib which was discontinued because of concern of infection related to mildly elevated pro calcitonin. Currently pro calcitonin level is improved, patient completed cefepime for empiric antibiotic coverage with no positive bacterial growth on cultures except for staph epidermidis on blood culture. Follow-up cultures have been negative thus far, #2. Acute right lower lobe pulmonary embolism and right popliteal DVT, currently on therapeutic dose of Lovenox 100 mg twice daily #3. Acute respiratory acidosis, improved #4. History of hypothyroidism #5. History of marijuana smoking #6. Anxiety #7. Increased LFTs, likely related to viral pneumonia, improved #8. Elevated inflammatory markers, improving Plan: Today's chest x-ray, blood gases, labs reviewed We'll continue current mode of ventilation, with pressure control FiO2 of 50%, and PEEP of 12 No changes to the ventilator mode Continue current medical treatment Continue Decadron, continue Lovenox 100 mg twice daily Sputum culture has been sent, awaiting final culture Vital signs have been stable No fever or chills Surgery consulted for tracheostomy and PEG tube placement, updated family on the phone regarding current condition, and plan of care The son also wants a phone call from the surgeon before giving consent for the procedure He also wants to transfer the patient to [facility] where he apparently has an accepting physician We'll start the process for transferring the patient per family request We'll continue to closely follow I performed a history & physical examination of the patient and discussed their management with my nurse practitioner, Maribeth Pereira. I reviewed the nurse practitioner's note and agree with the documented findings and plan of care. Lung sounds are positive for dim breath sounds throughout the lung tai. The findings and the impression was discussed with the patient. I attest to the documentation by the nurse practitioner. Time with Patient: Greater than 30
[2021-05-09 11:45] LABS: Glucose,Whole Blood 89 mg/dL (75-99)
--- NOTE | 2021-05-09 15:02 | P.PN ---
<Romulo Diazee - Last Filed: 05/09/21 14:52> Subjective Progress Note Date: 05/09/21 CHIEF COMPLAINT: COVID-19 HISTORY OF PRESENT ILLNESS: 46-year-old female who remains in the ICU with COVID-19 pneumonia. She is currently sedated and intubated. FiO2 50%, PEEP 12. No acute changes through the night. She's been afebrile. Weaning sedation trial yesterday was unsuccessful, as patient became tachycardic and tachypneic. Apparently the patient's and son have requested that the patient be transferred to a tertiary center. Tentative plan was for tracheostomy and PEG tube placement tomorrow. PHYSICAL EXAM: VITAL SIGNS: Reviewed. GENERAL: Sedated and intubated. HEENT: No sclera icterus. Extraocular movements grossly intact. Moist buccal mucosa. Head is atraumatic, normocephalic. ABDOMEN: Soft. Nondistended. Nontender. NEUROLOGIC: Sedated and intubated. ASSESSMENT: 1. Acute hypoxic respiratory failure secondary to COVID-19 pneumonia. 2. Severe Protein calorie malnutrition 3. Right lower lobe pulmonary embolism and right leg DVT on Lovenox PLAN: -At this time general surgery will cancel PEG tube and tracheostomy placement as family is requesting to have patient transferred to tertiary center. -May resume tube feedings -May resume Lovenox -Continue ICU management The impression and plan of care has been dictated as directed. Dr. Chavez I performed a history and examination of this patient, discussed the same with the dictator. I agree with the dictator's note ,documented as a scribe. Any additional findings or plans will be noted. Objective - Vital Signs Vital signs: Vital Signs Temp 98.0 F 05/09/21 12:00 Pulse 85 05/09/21 12:00 Resp 30 H 05/09/21 12:00 BP 93/55 05/09/21 12:00 Pulse Ox 98 05/09/21 12:00 Intake & Output 05/08/21 05/09/21 05/09/21 18:59 06:59 18:59 Intake Total 0769.178 9985.079 568.356 Output Total 1835 1420 385 Balance -627.654 -385.921 183.356 Weight 108.4 kg Intake: IV 253 276 138 Pressure Bag 33 36 18 Sodium Chloride 0.9% 1, 220 240 120 000 ml @ 20 mls/hr IV . Q24H [facility] Rx#:[id number] Intake, IV Titration 633.346 416.079 304.356 Amount fentaNYL (PF) 2,500 mcg 233.346 223.06 In Sodium Chloride 0.9% 200 ml @ 0.5 MCG/KG/HR 5. 23 mls/hr IV .Q24H [facility] Rx #:[id number] propofoL 1,000 mg In 400.000 416.079 81.296 Empty Bag 1 bag @ Titrate IV .Q0M [facility] Rx#: [id number] Tube Feeding 231 252 126 Other 90 90 Output: Urine 1835 1420 385 Other: Voiding Method Indwelling Catheter Indwelling Catheter ABP, PAP, CO, CI - Last Documented Arterial Blood Pressure 100/53 - Labs CBC & Chem 7: 05/09/21 03:50 05/09/21 03:50 Labs: Abnormal Lab Results - Last 24 Hours (Table) 05/08/21 05/09/21 05/09/21 Range/Units 23:58 03:50 03:50 RBC 3.48 L (3.80-5.40) m/uL Hgb 10.8 L (11.4-16.0) gm/dL ABG pCO2 (35-45) mmHg ABG pO2 (83-108) mmHg ABG HCO3 (21-25) mmol/L ABG Total CO2 (19-24) mmol/L ABG O2 Saturation (94-97) % Carbon Dioxide 35 H (22-30) mmol/L Creatinine 0.33 L (0.52-1.04) mg/dL POC Glucose (mg/dL) 71 L (75-99) mg/dL AST 44 H (14-36) U/L ALT 108 H (4-34) U/L Total Protein 5.8 L (6.3-8.2) g/dL Albumin 2.6 L (3.5-5.0) g/dL 05/09/21 Range/Units 05:45 RBC (3.80-5.40) m/uL Hgb (11.4-16.0) gm/dL ABG pCO2 56 H (35-45) mmHg ABG pO2 63 L (83-108) mmHg ABG HCO3 38 H (21-25) mmol/L ABG Total CO2 40 H (19-24) mmol/L ABG O2 Saturation 92.2 L (94-97) % Carbon Dioxide (22-30) mmol/L Creatinine (0.52-1.04) mg/dL POC Glucose (mg/dL) (75-99) mg/dL AST (14-36) U/L ALT (4-34) U/L Total Protein (6.3-8.2) g/dL Albumin (3.5-5.0) g/dL Microbiology - Last 24 Hours (Table) 05/08/21 23:20 Sputum Culture - Preliminary Sputum <Carlin Chavezony - Last Filed: 05/09/21 17:50> Subjective I have personally seen and examined the patient, reviewed the [employer] /PAs history, exam and MDM and agree with the assessment and plan as written. Based on total visit time, I have performed more than 50% of the visit. As above. Apparently transfer was denied by her insurance company. Patient clearly meets criteria to proceed with tracheostomy and PEG tube placement. No family at bedside currently. I called the patient's son Fadi by phone and went immediately to voicemail. I left a message that I would try him again. We'll tentatively proceed with tracheostomy and PEG tube placement tomorrow. Objective - Vital Signs Vital signs: Vital Signs Temp 98.0 F 05/09/21 16:00 Pulse 81 05/09/21 17:00 Resp 28 H 05/09/21 17:00 BP 93/55 05/09/21 12:00 Pulse Ox 100 05/09/21 17:00 Intake & Output 05/08/21 05/09/21 05/09/21 18:59 06:59 18:59 Intake Total 8138.352 8195.079 788.356 Output Total 1835 1420 880 Balance -627.654 -385.921 -91.644 Weight 108.4 kg Intake: IV 253 276 253 Pressure Bag 33 36 33 Sodium Chloride 0.9% 1, 220 240 220 000 ml @ 20 mls/hr IV . Q24H [facility] Rx#:[id number] Intake, IV Titration 633.346 416.079 304.356 Amount fentaNYL (PF) 2,500 mcg 233.346 223.06 In Sodium Chloride 0.9% 200 ml @ 0.5 MCG/KG/HR 5. 23 mls/hr IV .Q24H [facility] Rx #:[id number] propofoL 1,000 mg In 400.000 416.079 81.296 Empty Bag 1 bag @ Titrate IV .Q0M [facility] Rx#: [id number] Tube Feeding 231 252 231 Other 90 90 Output: Urine 1835 1420 880 Other: Voiding Method Indwelling Catheter Indwelling Catheter Indwelling Catheter ABP, PAP, CO, CI - Last Documented Arterial Blood Pressure 105/53 - Labs CBC & Chem 7: 05/09/21 03:50 05/09/21 03:50 Labs: Abnormal Lab Results - Last 24 Hours (Table) 05/08/21 05/09/21 05/09/21 Range/Units 23:58 03:50 03:50 RBC 3.48 L (3.80-5.40) m/uL Hgb 10.8 L (11.4-16.0) gm/dL ABG pCO2 (35-45) mmHg ABG pO2 (83-108) mmHg ABG HCO3 (21-25) mmol/L ABG Total CO2 (19-24) mmol/L ABG O2 Saturation (94-97) % Carbon Dioxide 35 H (22-30) mmol/L Creatinine 0.33 L (0.52-1.04) mg/dL POC Glucose (mg/dL) 71 L (75-99) mg/dL AST 44 H (14-36) U/L ALT 108 H (4-34) U/L Total Protein 5.8 L (6.3-8.2) g/dL Albumin 2.6 L (3.5-5.0) g/dL 05/09/21 Range/Units 05:45 RBC (3.80-5.40) m/uL Hgb (11.4-16.0) gm/dL ABG pCO2 56 H (35-45) mmHg ABG pO2 63 L (83-108) mmHg ABG HCO3 38 H (21-25) mmol/L ABG Total CO2 40 H (19-24) mmol/L ABG O2 Saturation 92.2 L (94-97) % Carbon Dioxide (22-30) mmol/L Creatinine (0.52-1.04) mg/dL POC Glucose (mg/dL) (75-99) mg/dL AST (14-36) U/L ALT (4-34) U/L Total Protein (6.3-8.2) g/dL Albumin (3.5-5.0) g/dL Microbiology - Last 24 Hours (Table) 05/08/21 23:20 Sputum Culture - Preliminary Sputum
[2021-05-09] MEDS: SODIUM CHLORIDE 0.9% 500 ML 500 ML IV SCH (17:39)
[2021-05-09 17:45] LABS: Glucose,Whole Blood 98 mg/dL (75-99)
--- NOTE | 2021-05-09 19:30 | PN ---
PROGRESS NOTE DATE OF SERVICE: 05/09/2021 CHIEF COMPLAINT: COVID pneumonia and respiratory failure. HISTORY OF PRESENT ILLNESS: This lady's condition is basically the same. She is off pressors. Apparently she has a son who has been given responsibility for communicating with the medical staff regarding his mother's case. The patient is , but her has arranged for the son to be the intermediary. Apparently he is very unhappy and has been causing quite a bit of difficulty. Family is going into rooms taking pictures of the patient on their cell phones and otherwise creating somewhat of a disturbance. The son called today stating that he wanted to transfer to [facility]. PHYSICAL EXAMINATION: Blood pressure is still quite normal and chest is clear. She is in sinus rhythm. IMPRESSION: 1. COVID pneumonia with respiratory failure. 2. Possible encephalopathy. 3. Possible permanent lung injury. PLAN: The case was discussed with the physician at [facility] who agreed to accept the patient in transfer. However, the insurance denied the transfer. Her care will continue here for the present time. MMODL / IJN: [id number] /
--- NOTE | 2021-05-09 19:45 | PN ---
PROGRESS NOTE DATE OF SERVICE: 05/08/2021 CHIEF COMPLAINT: COVID pneumonia. HISTORY OF PRESENT ILLNESS: This lady has been fairly stable. She is still ventilator-dependent. Plans are to arrange for a PEG tube and a tracheostomy. PHYSICAL EXAMINATION: Color is good. Hydration is adequate. Her vital signs are normal. IMPRESSION: COVID pneumonia with respiratory failure. PLAN: She will be referred to Surgery for PEG tube and tracheostomy. MMODL / IJN: [id number] /
--- NOTE | 2021-05-09 21:49 | P.PN ---
Subjective Progress Note Date: 05/08/21 Principal diagnosis: Pneumonia and bacteremia Interval history : Patient is a 46-year-old -Indonesian female with admission diagnoses: Acute COVID-19 pneumonia subsequently admission to the hospital with worsening respiratory status has been diagnosed with a DVT and PE. On today's evaluation that is 05/08/2021, The patient remains to be afebrile, the patient is hemodynamically stable not requiring any pressor support , the patient FiO2 is currently stable at 50%, no purulent secretion through the ET has been reported by the nursing staff, patient has been tolerating tube feeds and no diarrhea has been reported, Objective - Vital Signs Vital signs: Vital Signs Temp 97.8 F 05/08/21 12:00 Pulse 79 05/08/21 15:00 Resp 24 05/08/21 15:00 BP 96/54 05/08/21 15:00 Pulse Ox 98 05/08/21 15:00 Intake & Output 05/07/21 05/08/21 05/08/21 18:59 06:59 18:59 Intake Total 0877.634 2627.608 823.399 Output Total 2400 1220 1185 Balance -1341.147 91.608 -361.601 Weight 112 kg 109.3 kg Intake: IV 353 299 184 Cefepime 2 gm In Sodium 100 Chloride 0.9% 100 ml @ 25 mls/hr IVPB Q8HR [facility] Rx# :[id number] Pressure Bag 33 39 24 Sodium Chloride 0.9% 1, 220 260 160 000 ml @ 20 mls/hr IV . Q24H [facility] Rx#:[id number] Intake, IV Titration 284.853 649.608 411.399 Amount Dexmedetomidine/0.9% NaCl 2.893 77.14 (Pmx) 400 mcg In Empty Bag 1 bag @ 0.2 MCG/KG/HR 5.6 mls/hr IV .[id number] [facility] Rx#:[id number] fentaNYL (PF) 2,500 mcg 144.092 200.048 111.399 In Sodium Chloride 0.9% 200 ml @ 0.5 MCG/KG/HR 5. 23 mls/hr IV .Q24H [facility] Rx #:[id number] propofoL 1,000 mg In 137.868 372.420 300.000 Empty Bag 1 bag @ Titrate IV .Q0M [facility] Rx#: [id number] Tube Feeding 231 273 168 Other 190 90 60 Output: Urine 2400 1220 1185 Other: Voiding Method Indwelling Catheter Indwelling Catheter Indwelling Catheter ABP, PAP, CO, CI - Last Documented Arterial Blood Pressure 95/50 - Exam GENERAL DESCRIPTION: Middle-aged female intubated on the vent RESPIRATORY SYSTEM: Unlabored breathing , decreased breath sounds at bases HEART: S1 S2 regular rate and rhythm ,no loud murmurs ABDOMEN: Soft , no tenderness EXTREMITIES: No edema feet - Labs CBC & Chem 7: 05/09/21 03:50 05/09/21 03:50 Labs: Abnormal Lab Results - Last 24 Hours (Table) 05/08/21 05/08/21 05/08/21 Range/Units 04:25 04:25 05:21 RBC 3.71 L (3.80-5.40) m/uL ABG pH 7.47 H (7.35-7.45) ABG pCO2 50 H (35-45) mmHg ABG pO2 71 L (83-108) mmHg ABG HCO3 37 H (21-25) mmol/L ABG Total CO2 38 H (19-24) mmol/L ABG O2 Saturation (94-97) % Potassium 3.4 L (3.5-5.1) mmol/L Carbon Dioxide 37 H (22-30) mmol/L POC Glucose (mg/dL) (75-99) mg/dL AST 59 H (14-36) U/L ALT 130 H (4-34) U/L Lactate Dehydrogenase 764 H (313-618) U/L C-Reactive Protein 1.3 H (<1.0) mg/dL Total Protein 6.0 L (6.3-8.2) g/dL Albumin 2.7 L (3.5-5.0) g/dL 05/08/21 05/08/21 Range/Units 05:53 09:37 RBC (3.80-5.40) m/uL ABG pH 7.46 H (7.35-7.45) ABG pCO2 53 H (35-45) mmHg ABG pO2 65 L (83-108) mmHg ABG HCO3 37 H (21-25) mmol/L ABG Total CO2 39 H (19-24) mmol/L ABG O2 Saturation 93.2 L (94-97) % Potassium (3.5-5.1) mmol/L Carbon Dioxide (22-30) mmol/L POC Glucose (mg/dL) 67 L (75-99) mg/dL AST (14-36) U/L ALT (4-34) U/L Lactate Dehydrogenase (313-618) U/L C-Reactive Protein (<1.0) mg/dL Total Protein (6.3-8.2) g/dL Albumin (3.5-5.0) g/dL Assessment and Plan (1) Positive blood culture Current Visit: Yes Status: Acute Code(s): R78.81 - BACTEREMIA SNOMED Code(s): 686851814 (2) COVID-19 Current Visit: Yes Status: Acute Code(s): U07.1 - COVID-19 SNOMED Code(s): 861937627 Plan: 1-patient with a positive blood culture which has been finalized and staph epi likely skin contaminant, Repeat blood culture has been negative so far, we will continue to monitor patient closely off vancomycin 2-acute respiratory failure which is multifactorial possible component of pneumonia, Sputum has been usual respiratory pat White count is normal, the patient completed course of cefepime and monitor clinical course closely Time with Patient: Less than 30
--- NOTE | 2021-05-09 21:50 | P.PN ---
Subjective Progress Note Date: 05/09/21 Principal diagnosis: Pneumonia and bacteremia Interval history : Patient is a 46-year-old -Russian female with admission diagnoses: Acute COVID-19 pneumonia subsequently admission to the hospital with worsening respiratory status has been diagnosed with a DVT and PE. On today's evaluation that is 05/09/2021, The patient continues to be afebrile, the patient is hemodynamically stable not requiring any pressor support , the patient FiO2 is currently stable at 50%, no purulent secretion through the ET, patient has been tolerating tube feeds and no diarrhea has been reported, no new changes reported Objective - Vital Signs Vital signs: Vital Signs Temp 98.7 F 05/09/21 20:00 Pulse 96 05/09/21 21:00 Resp 17 05/09/21 21:00 BP 93/55 05/09/21 21:00 Pulse Ox 99 05/09/21 21:00 Intake & Output 05/09/21 05/09/21 05/10/21 06:59 18:59 06:59 Intake Total 1034.079 932.356 169 Output Total 1420 1005 625 Balance -385.921 -72.644 -456 Weight 108.4 kg Intake: IV 276 276 69 Pressure Bag 36 36 9 Sodium Chloride 0.9% 1, 240 240 60 000 ml @ 20 mls/hr IV . Q24H [facility] Rx#:[id number] Intake, IV Titration 416.079 404.356 100 Amount fentaNYL (PF) 2,500 mcg 223.06 In Sodium Chloride 0.9% 200 ml @ 0.5 MCG/KG/HR 5. 23 mls/hr IV .Q24H [facility] Rx #:[id number] propofoL 1,000 mg In 416.079 181.296 100 Empty Bag 1 bag @ Titrate IV .Q0M [facility] Rx#: [id number] Tube Feeding 252 252 Other 90 Output: Urine 1420 1005 625 Other: Voiding Method Indwelling Catheter Indwelling Catheter Indwelling Catheter ABP, PAP, CO, CI - Last Documented Arterial Blood Pressure 113/54 - Exam GENERAL DESCRIPTION: Middle-aged female intubated on the vent RESPIRATORY SYSTEM: Unlabored breathing , decreased breath sounds at bases HEART: S1 S2 regular rate and rhythm ,no loud murmurs ABDOMEN: Soft , no tenderness EXTREMITIES: No edema feet - Labs CBC & Chem 7: 05/09/21 03:50 05/09/21 03:50 Labs: Abnormal Lab Results - Last 24 Hours (Table) 05/08/21 05/09/21 05/09/21 Range/Units 23:58 03:50 03:50 RBC 3.48 L (3.80-5.40) m/uL Hgb 10.8 L (11.4-16.0) gm/dL ABG pCO2 (35-45) mmHg ABG pO2 (83-108) mmHg ABG HCO3 (21-25) mmol/L ABG Total CO2 (19-24) mmol/L ABG O2 Saturation (94-97) % Carbon Dioxide 35 H (22-30) mmol/L Creatinine 0.33 L (0.52-1.04) mg/dL POC Glucose (mg/dL) 71 L (75-99) mg/dL AST 44 H (14-36) U/L ALT 108 H (4-34) U/L Total Protein 5.8 L (6.3-8.2) g/dL Albumin 2.6 L (3.5-5.0) g/dL 05/09/21 Range/Units 05:45 RBC (3.80-5.40) m/uL Hgb (11.4-16.0) gm/dL ABG pCO2 56 H (35-45) mmHg ABG pO2 63 L (83-108) mmHg ABG HCO3 38 H (21-25) mmol/L ABG Total CO2 40 H (19-24) mmol/L ABG O2 Saturation 92.2 L (94-97) % Carbon Dioxide (22-30) mmol/L Creatinine (0.52-1.04) mg/dL POC Glucose (mg/dL) (75-99) mg/dL AST (14-36) U/L ALT (4-34) U/L Total Protein (6.3-8.2) g/dL Albumin (3.5-5.0) g/dL Microbiology - Last 24 Hours (Table) 05/08/21 23:20 Sputum Culture - Preliminary Sputum Assessment and Plan (1) Positive blood culture Current Visit: Yes Status: Acute Code(s): R78.81 - BACTEREMIA SNOMED Code(s): 075233858 (2) COVID-19 Current Visit: Yes Status: Acute Code(s): U07.1 - COVID-19 SNOMED Code(s): 063758538 Plan: 1-patient with a positive blood culture which has been finalized and staph epi likely skin contaminant, Repeat blood culture has been negative so far, we will continue to monitor patient closely off vancomycin 2-acute respiratory failure which is multifactorial possible component of pneumonia, Sputum has been usual respiratory pat White count is normal and the patient has been afebrile, the patient completed course of cefepime and will monitor the patient closely off antibiotics Time with Patient: Less than 30
[2021-05-09 23:55] LABS: Glucose,Whole Blood 88 mg/dL (75-99)
[2021-05-10] MEDS: INSULIN ASPART (NovoLOG) 100 UNIT/ML VIAL SQ SCH ×5 (00:09→23:52)
[2021-05-10 04:58] LABS: HCT 30.8 % (34.0-46.0); HGB 10.3 gm/dL (11.4-16.0); MCH 33.1 pg (25.0-35.0); MCHC 33.4 g/dL (31.0-37.0); MCV 98.9 fL (80.0-100.0); Macrocytosis Slight; Mean Platelet Volume 9.2; Platelet Count 292 k/uL (150-450); RBC 3.11 m/uL (3.80-5.40); RDW 14.4 % (11.5-15.5); WBC 10.3 k/uL (3.8-10.6)
[2021-05-10 05:28] LABS: ALT 86 U/L (4-34); AST 33 U/L (14-36); African American GFR (CKD) >90 (>60 ml/min/1.73 sqM); Albumin 2.6 g/dL (3.5-5.0); Alkaline Phosphatase 78 U/L (38-126); Anion Gap 0 mmol/L; Blood Urea Nitrogen 9 mg/dL (7-17); Calcium 8.7 mg/dL (8.4-10.2); Carbon Dioxide 37 mmol/L (22-30); Chloride 102 mmol/L (98-107); Glucose 86 mg/dL (74-99); Non-African American GFR(CKD) >90 (>60 ml/min/1.73 sqM); Potassium 3.7 mmol/L (3.5-5.1); Sodium 139 mmol/L (137-145); Total Bilirubin 0.5 mg/dL (0.2-1.3); Total Protein 5.7 g/dL (6.3-8.2)
[2021-05-10] MEDS: LEVOTHYROXINE 112 MCG TAB PO SCH (05:38)
[2021-05-10] MEDS: ENOXAPARIN 100 MG/ML SYRINGE SQ SCH ×2 (05:39→20:18)
[2021-05-10] MEDS: POTASSIUM CHLORIDE 10 MEQ in WATER FOR INJECTION 1 100ML.BAG IVPB SCH ×2 (05:48→06:17)
[2021-05-10 06:11] LABS: Glucose,Whole Blood 81 mg/dL (75-99)
[2021-05-10 06:17] LABS: ABG Base Excess 13.2 mmol/L; ABG HCO3 38 mmol/L (21-25); ABG Oxygen Saturation 97.4 % (94-97); ABG PCO2 58 mmHg (35-45); ABG PH 7.42 (7.35-7.45); ABG PO2 89 mmHg (83-108); ABG TCO2 40 mmol/L (19-24); Allen Test Performed? Yes
[2021-05-10] MEDS: ALBUTEROL HFA INHALER INHALATION SCH ×4 (07:58→20:21)
--- NOTE | 2021-05-10 08:03 | XR ---
EXAMINATION TYPE: XR chest 1V portable DATE OF EXAM: 05/10/2021 COMPARISON: Chest x-ray 05/09/2021 HISTORY: Covid, intubated TECHNIQUE: Single frontal view of the chest is obtained. FINDINGS: Endotracheal tube, right-sided PICC line, NG tube are overlying appropriate positions. The re is no evident pneumothorax or pleural effusion. Bilateral airspace disease persists. Cardiac style silhouette is unchanged. There are overlying artifacts. IMPRESSION: Similar to prior exam, findings consistent with patient's history of Covid pneumonia. Di fferential includes ARDS, congestive heart failure felt less likely.
[2021-05-10] MEDS: ASCORBIC ACID 500 MG TAB PO SCH (08:42)
[2021-05-10] MEDS: ZINC SULFATE 220 MG CAP PO SCH (08:42)
[2021-05-10] MEDS: DEXAMETHASONE SOD PHOSPHATE 10 MG/ML 1 ML VIAL IVP SCH (08:42)
[2021-05-10] MEDS: PANTOPRAZOLE 40 MG/10 ML VIAL IVP SCH (08:42)
[2021-05-10] MEDS: CHOLECALCIFEROL 125 MCG (5000 IU) TABLET PO SCH (08:42)
[2021-05-10] MEDS: CHLORHEXIDINE GLUCONATE 15 ML CUP MUCOUS MEM SCH ×2 (08:42→20:18)
[2021-05-10] MEDS: QUEtiapine 50 MG TAB PO SCH ×2 (08:42→20:18)
[2021-05-10] MEDS ORDERED: IV FLUID CONTINUATION 1,000 ML IV ONE (10:48)
[2021-05-10] MEDS ORDERED: ROCURONIUM 10 MG/ML (5 ML VIAL) IV ONE (10:48)
[2021-05-10] MEDS ORDERED: fentaNYL (PF) 50 MCG/ML 2 ML AMP ONE (10:48)
[2021-05-10] MEDS ORDERED: MIDAZOLAM 2 MG/2 ML VIAL ONE (10:48)
--- NOTE | 2021-05-10 11:02 | CDI ---
Documentation Clarification Form Date: 05/10/2021 10:24:48 AM From: Jo Ann Pastrana RN, CCDS Admit Date: 04/21/2021 02:56:00 AM Patient Name: Jaelyn Mcguire Visit Number: [id number] Discharge Date: ATTENTION: The Clinical Documentation Specialists (CDI) and [facility] Coding Staff appreciate your assistance in clarifying documentation. Please respond to the clarification below the line at the bottom and electronically sign. The CDI & [facility] Coding staff will review the response and follow-up if needed. Please note: Queries are made part of the Legal Health Record. If you have any questions, please contact the author of this message via ITS. Dr. Paloma Swain There is documentation right popliteal DVT found on Venous Doppler ordered on 04/28/2021. She had and elevated d-dimer on admission. Additional clarification is requested. History/Risk Factors: COVID-19 (04/13/21, GERD, Thyroid Disorder Clinical Indicators: 45-year-old female present with prior history of Covid-19 She was originally symptomatic on 04/11/2021. She was diagnosed having COVID-19 infection on 04/13/2021 seen and treated on 04/18/2021. She present on with shortness of breath and continuing Covid like symptoms. She had an elevated d-dimer on admission. 04/21 D-Dimer 102, 04/24 D-Dimer >34.10 04/28 Venous Doppler: Right leg: Positive for DVT popliteal vein Treatment: ICU Monitoring Lovenox 100MG SQ BID 04/24-05/10) Can you please further clarify right popliteal DVT? [ ] Right popliteal DVT due to Covid-19 POA [ ] Right popliteal DVT due to Covid-19 not POA [ ] Other, please specify [ ] Unable to determine (Template Last Revised: June 2020) LUIS DANIELD
--- NOTE | 2021-05-10 12:01 | P.PN ---
Subjective Progress Note Date: 05/10/21 The patient is seen today 05/10/2021 in follow-up in the intensive care unit. She remains intubated on mechanical ventilator currently on pressure assist- control mode with a inspiratory pressure of 20, inspiratory time of 0.9. Respiratory rate 28, FiO2 50%, PEEP of 12. Morning blood gases revealed a PaO2 of 89, pCO2 58, pH 7.42. She is sedated on propofol at 75 mg/kg/m. She is on fentanyl at 1.5 mcg/kg/m. Normal saline at KVO. Tube feedings are currently on hold. The plan is for a tracheostomy and PEG tube placements today. Lovenox remains on hold for the same. Chest x-ray continues to reveal bilateral patchy densities consistent with COVID-19 pneumonia. Sputum cultures reveal no growth. White count 10.3. Hemoglobin 10.3. Sodium 139. Potassium 3.7. Creatinine 0.43. Glucose 86. AST 33. ALT 86. Albumin 2.6. She is continued on Decadron, Lovenox, vitamin supplements. Protonix for GI prophylaxis. Objective - Vital Signs Vital signs: Vital Signs Temp 97.7 F 05/10/21 08:00 Pulse 81 05/10/21 10:00 Resp 28 H 05/10/21 10:00 BP 93/55 05/09/21 21:00 Pulse Ox 99 05/10/21 10:00 Intake & Output 05/09/21 05/10/21 05/10/21 18:59 06:59 18:59 Intake Total 234.689 9935.769 415 Output Total 1005 1625 330 Balance -72.644 -609.231 85 Weight 109.6 kg 109.6 kg Intake: IV 276 256 315 Pressure Bag 36 36 15 Sodium Chloride 0.9% 1, 240 220 100 000 ml @ 20 mls/hr IV . Q24H [facility] Rx#:[id number] Intake, IV Titration 404.356 759.769 100 Amount fentaNYL (PF) 2,500 mcg 223.06 250 In Sodium Chloride 0.9% 200 ml @ 0.5 MCG/KG/HR 5. 23 mls/hr IV .Q24H [facility] Rx #:[id number] propofoL 1,000 mg In 181.296 509.769 100 Empty Bag 1 bag @ Titrate IV .Q0M [facility] Rx#: [id number] Tube Feeding 252 Output: Urine 1005 1625 320 Estimated Blood Loss 10 Other: Voiding Method Indwelling Catheter Indwelling Catheter Indwelling Catheter ABP, PAP, CO, CI - Last Documented Arterial Blood Pressure 100/48 - Exam GENERAL EXAM: Intubated, sedated, 46-year-old female patient, on the mechanical ventilator currently on pressure control mode of ventilation with a PI of 20, TI of 0.9 sec, FiO2 of 50% and PEEP of 12, and a resp rate of 28 HEAD: Normocephalic/atraumatic. EYES: Sluggish reaction of pupils, equal size. Conjunctiva pink, sclera white. NOSE: Clear with pink turbinates. THROAT: Oral endotracheal and gastric tube secured in place. No erythema or exudates. NECK: No masses, no JVD, no thyroid enlargement, no adenopathy. CHEST: No chest wall deformity. Symmetrical expansion. LUNGS: Equal air entry with coarse crackles at bilateral bases. CVS: Regular rate and rhythm, normal S1 and S2, no gallops, no murmurs, no rubs ABDOMEN: Soft, nontender. No hepatosplenomegaly, normal bowel sounds, no guarding or rigidity. EXTREMITIES: No clubbing, no edema, no cyanosis, 2+ pulses and upper and lower extremities. MUSCULOSKELETAL: Muscle strength and tone normal. SPINE: No scoliosis or deformity SKIN: No rashes CENTRAL NERVOUS SYSTEM: Intubated and sedated. No focal deficits, tone is normal in all 4 extremities. - Labs CBC & Chem 7: 05/10/21 04:20 05/10/21 04:20 Labs: Abnormal Lab Results - Last 24 Hours (Table) 05/10/21 05/10/21 05/10/21 Range/Units 04:20 04:20 06:13 RBC 3.11 L (3.80-5.40) m/uL Hgb 10.3 L (11.4-16.0) gm/dL Hct 30.8 L (34.0-46.0) % ABG pCO2 58 H (35-45) mmHg ABG HCO3 38 H (21-25) mmol/L ABG Total CO2 40 H (19-24) mmol/L ABG O2 Saturation 97.4 H (94-97) % Carbon Dioxide 37 H (22-30) mmol/L Creatinine 0.43 L (0.52-1.04) mg/dL ALT 86 H (4-34) U/L Total Protein 5.7 L (6.3-8.2) g/dL Albumin 2.6 L (3.5-5.0) g/dL Microbiology - Last 24 Hours (Table) 05/08/21 23:20 Gram Stain - Preliminary Sputum Sputum Culture - Preliminary Assessment and Plan Assessment: 1 Acute hypoxic respiratory failure secondary to COVID-19 pneumonia. Patient is a non-vaccinated adult. Initial diagnosis was established on 04/13/2021, patient was hospitalized and discharged home on 04/18/2021, readmitted with worsening hypoxia and dyspnea, and intubated on 04/27/2021. She remains intubated and mechanically ventilated today on 05/10/2021. Patient was initially placed on Baricitinib which was discontinued because of concern of infection related to mildly elevated pro calcitonin. Currently pro calcitonin level is improved, patient completed cefepime for empiric antibiotic coverage with no positive bacterial growth on cultures except for staph epidermidis on blood culture. Follow-up cultures have been negative thus far, 2 Acute right lower lobe pulmonary embolism and right popliteal DVT, currently on therapeutic dose of Lovenox 100 mg twice daily 3 Acute respiratory acidosis, improved 4 History of hypothyroidism 5 History of marijuana smoking 6 Anxiety 7 Increased LFTs, likely related to viral pneumonia, improved 8 Elevated inflammatory markers, improving Plan: The patient was seen and evaluated Chest x-ray, ABGs and labs reviewed The plan is for tracheostomy and PEG tube placement today Tube feedings and Lovenox on hold for now There are no accepting beds for transfer due to insurance at this time Plan was for transfer due to family request We will continue with the current treatment plan We will continue to follow and make further recommendations based on her clinical status Critical care time 36 minutes I, the cosigning physician, performed a history & physical examination of the patient. Lungs sounds with coarse crackles in the bilateral bases. Maintaining O2 saturations in the 90s on 50% FiO2 and a PEEP of 12 via the mechanical ventilator. I discussed the assessment and plan of care with my nurse practitioner, Roxane Carrington. I attest to the above note as dictated by her.
--- NOTE | 2021-05-10 12:04 | P.OP ---
Date of Procedure: 05/10/21 Procedure(s) Performed: PREOPERATIVE DIAGNOSIS: Respiratory failure, malnutrition POSTOPERATIVE DIAGNOSIS: Same PROCEDURE: Tracheostomy, EGD with PEG tube placement SURGEON: Kathy EBL: Minimal ANESTHESIA: General COMPLICATIONS: None OPERATIVE PROCEDURE: Patient was kept on her hospital bed in the supine pos ition. A shoulder roll was utilized. The neck was prepped and draped in usual sterile fashion. The skin was infiltrated with local anesthesia. A small cervical incision was created using the scalpel through the previous thyroidectomy scar. Dissection through the subcutaneous fat and platysma layer took place using electrocautery. The underlying strap muscles were divided in the midline. The thyroid isthmus was divided using electrocautery as well. No bleeding was seen. The trachea was easily identified at this time. The endotracheal tube was advanced and the balloon was reinflated. The patient was preoxygenated with 100% FiO2. Ventilation was held. A vertical incision made through the first and second tracheal ring. No bleeding was seen. The patient was again preoxygenated with 100% FiO2. The bleach maker was utilized. Carefully the endotracheal tube was withdrawn just proximal to our tracheostomy. The 8- Cypriot Shiley nonfenestrated tracheostomy catheter was advanced under direct visualization into the trachea. This was then connected to the ventilator. Positive end tidal CO2 was confirmed. The tracheal ties were utilized. The trach was sutured to the skin superiorly using 2 separate 0 silk sutures. The skin was closed using 3-0 Vicryl sutures. A dressing was applied. The patient was kept in the supine position on the operating room table. The Olympus gastroscope was inserted into the oropharynx and passed under direct visualization to the region of the duodenum. No obstruction was seen. The pylorus was widely patent. The stomach was carefully inspected. The stomach was fully insufflated with air. The abdominal wall was inspected. The light was seen shining through the abdominal wall in the left upper quadrant. This site was chosen for PEG tube placement. The area was prepped in the usual sterile fashion. A small vertical incision was made using the scalpel. The Seldinger needle was advanced into the lumen of the stomach the wire was advanced. The wire was grasped with an endoscopic snare. The wire was pulled through the oropharynx. The catheter was then threaded over the guidewire and the guidewire and catheter were pulled anteriorly until the hub of the PEG tube catheter was seated against the anterior wall the stomach. The circular bolster was applied and tightened down. The endoscope was then readvanced into the stomach. There was no evidence of any bleeding and there was appropriate tightness on the bolster. The catheter was cut appropriately. The dual port feeding adapter was applied. DISPOSITION: Stable to ICU
[2021-05-10 12:29] LABS: Glucose,Whole Blood 72 mg/dL (75-99)
[2021-05-10] MEDS: SODIUM CHLORIDE 0.9% 500 ML 500 ML IV SCH (12:32)
--- NOTE | 2021-05-10 15:00 | P.PN ---
Subjective Progress Note Date: 05/10/21 Principal diagnosis: Pneumonia and bacteremia Interval history : Patient is a 46-year-old -Nepalese female with admission diagnoses: Acute COVID-19 pneumonia subsequently admission to the hospital with worsening respiratory status has been diagnosed with a DVT and PE. The patient is status post trach and PEG tube placement as of 05/10/2021 On today's evaluation that is 05/10/2021, The patient remains to be afebrile, the patient is hemodynamically stable not requiring any pressor support , the patient FiO2 is stable at 50%, no purulent secretion through the ET has been reported by the nursing staff, patient has been tolerating tube feeds and no diarrhea has been reported, Objective - Vital Signs Vital signs: Vital Signs Temp 97.7 F 05/10/21 08:00 Pulse 83 05/10/21 13:00 Resp 28 H 05/10/21 13:00 BP 93/55 05/09/21 21:00 Pulse Ox 92 L 05/10/21 13:00 Intake & Output 05/09/21 05/10/21 05/10/21 18:59 06:59 18:59 Intake Total 023.085 0164.769 561 Output Total 1005 1625 510 Balance -72.644 -609.231 51 Weight 109.6 kg 109.6 kg Intake: IV 276 256 361 Pressure Bag 36 36 21 Sodium Chloride 0.9% 1, 240 220 140 000 ml @ 20 mls/hr IV . Q24H [facility] Rx#:[id number] Intake, IV Titration 404.356 759.769 200 Amount fentaNYL (PF) 2,500 mcg 223.06 250 In Sodium Chloride 0.9% 200 ml @ 0.5 MCG/KG/HR 5. 23 mls/hr IV .Q24H [facility] Rx #:[id number] propofoL 1,000 mg In 181.296 509.769 200 Empty Bag 1 bag @ Titrate IV .Q0M [facility] Rx#: [id number] Tube Feeding 252 Output: Urine 1005 1625 500 Estimated Blood Loss 10 Other: Voiding Method Indwelling Catheter Indwelling Catheter Indwelling Catheter ABP, PAP, CO, CI - Last Documented Arterial Blood Pressure 134/66 - Exam GENERAL DESCRIPTION: Middle-aged female intubated on the vent RESPIRATORY SYSTEM: Unlabored breathing , decreased breath sounds at bases, no wheeze HEART: S1 S2 regular rate and rhythm ,no loud murmurs ABDOMEN: Soft , no tenderness EXTREMITIES: No edema feet - Labs CBC & Chem 7: 05/10/21 04:20 05/10/21 04:20 Labs: Abnormal Lab Results - Last 24 Hours (Table) 05/10/21 05/10/21 05/10/21 Range/Units 04:20 04:20 06:13 RBC 3.11 L (3.80-5.40) m/uL Hgb 10.3 L (11.4-16.0) gm/dL Hct 30.8 L (34.0-46.0) % ABG pCO2 58 H (35-45) mmHg ABG HCO3 38 H (21-25) mmol/L ABG Total CO2 40 H (19-24) mmol/L ABG O2 Saturation 97.4 H (94-97) % Carbon Dioxide 37 H (22-30) mmol/L Creatinine 0.43 L (0.52-1.04) mg/dL POC Glucose (mg/dL) (75-99) mg/dL ALT 86 H (4-34) U/L Total Protein 5.7 L (6.3-8.2) g/dL Albumin 2.6 L (3.5-5.0) g/dL 05/10/21 Range/Units 12:27 RBC (3.80-5.40) m/uL Hgb (11.4-16.0) gm/dL Hct (34.0-46.0) % ABG pCO2 (35-45) mmHg ABG HCO3 (21-25) mmol/L ABG Total CO2 (19-24) mmol/L ABG O2 Saturation (94-97) % Carbon Dioxide (22-30) mmol/L Creatinine (0.52-1.04) mg/dL POC Glucose (mg/dL) 72 L (75-99) mg/dL ALT (4-34) U/L Total Protein (6.3-8.2) g/dL Albumin (3.5-5.0) g/dL Microbiology - Last 24 Hours (Table) 05/08/21 23:20 Gram Stain - Preliminary Sputum Sputum Culture - Preliminary Assessment and Plan (1) Positive blood culture Current Visit: Yes Status: Acute Code(s): R78.81 - BACTEREMIA SNOMED Code(s): 080643275 (2) COVID-19 Current Visit: Yes Status: Acute Code(s): U07.1 - COVID-19 SNOMED Code(s): 005055513 Plan: 1-patient with a positive blood culture which has been finalized and staph epi likely skin contaminant, Repeat blood culture has been negative so far, we will continue to monitor patient closely off vancomycin 2-acute respiratory failure which is multifactorial possible component of pneumonia, Sputum has been usual respiratory pat White count is normal and the patient has been afebrile, the patient completed course of cefepime and and is currently being monitor closely off antibiotic therapy Time with Patient: Less than 30
[2021-05-10] MEDS: fentaNYL (PF) 2,500 MCG in SODIUM CHLORIDE 0.9% 200 ML IV SCH (15:16)
[2021-05-10 17:57] LABS: Glucose,Whole Blood 87 mg/dL (75-99)
[2021-05-10 23:50] LABS: Glucose,Whole Blood 69 mg/dL (75-99)
[2021-05-10] MEDS: DEXTROSE 50% SYRINGE 50 ML IVP ONE (23:51)
[2021-05-11 00:19] LABS: Glucose,Whole Blood 91 mg/dL (75-99)
[2021-05-11 05:31] LABS: Glucose,Whole Blood 56 mg/dL (75-99)
[2021-05-11] MEDS: INSULIN ASPART (NovoLOG) 100 UNIT/ML VIAL SQ SCH ×4 (05:33→23:45)
[2021-05-11] MEDS: DEXTROSE 50% SYRINGE 50 ML IVP ONE (05:33)
[2021-05-11] MEDS: LEVOTHYROXINE 112 MCG TAB PO SCH (05:34)
[2021-05-11 05:45] LABS: Glucose,Whole Blood 57 mg/dL (75-99)
[2021-05-11] MEDS: fentaNYL (PF) 2,500 MCG in SODIUM CHLORIDE 0.9% 200 ML IV SCH ×2 (06:05→21:37)
[2021-05-11 06:18] LABS: ABG Base Excess 11.8 mmol/L; ABG HCO3 37 mmol/L (21-25); ABG Oxygen Saturation 95.3 % (94-97); ABG PCO2 58 mmHg (35-45); ABG PO2 73 mmHg (83-108); ABG TCO2 38 mmol/L (19-24); Allen Test Performed? Yes
[2021-05-11 06:19] LABS: Glucose,Whole Blood 80 mg/dL (75-99)
--- NOTE | 2021-05-11 06:23 | XR ---
EXAMINATION TYPE: XR chest 1V portable DATE OF EXAM: 05/11/2021 COMPARISON: 05/10/2021 HISTORY: Covid pneumonia TECHNIQUE: Single frontal view of the chest is obtained. FINDINGS: There are diffuse partially consolidative airspace infiltrates unchanged compared to previ ous. There is no pneumothorax or large pleural effusion. Heart size normal. No change in the right-sided PICC line or tracheostomy tube. The osseous structures are intact IMPRESSION: Acute cardiopulmonary disease with no interval change.
[2021-05-11] MEDS: ALBUTEROL HFA INHALER INHALATION SCH ×4 (08:39→19:42)
[2021-05-11 08:42] LABS: HCT 32.6 % (34.0-46.0); HGB 10.3 gm/dL (11.4-16.0); Hypochromasia Slight; MCH 31.3 pg (25.0-35.0); MCHC 31.5 g/dL (31.0-37.0); MCV 99.4 fL (80.0-100.0); Macrocytosis Slight; Platelet Count 321 k/uL (150-450); RBC 3.28 m/uL (3.80-5.40); RDW 14.7 % (11.5-15.5); WBC 8.7 k/uL (3.8-10.6)
[2021-05-11] MEDS: ENOXAPARIN 100 MG/ML SYRINGE SQ SCH ×2 (08:45→20:42)
[2021-05-11] MEDS: ZINC SULFATE 220 MG CAP PO SCH (08:45)
[2021-05-11] MEDS: CHOLECALCIFEROL 125 MCG (5000 IU) TABLET PO SCH (08:45)
[2021-05-11] MEDS: PANTOPRAZOLE 40 MG/10 ML VIAL IVP SCH (08:45)
[2021-05-11] MEDS: CHLORHEXIDINE GLUCONATE 15 ML CUP MUCOUS MEM SCH ×2 (08:45→20:42)
[2021-05-11] MEDS: bisacodyL 10 MG SUPP RECTAL SCH (08:45)
[2021-05-11] MEDS: QUEtiapine 50 MG TAB PO SCH ×2 (08:45→20:42)
[2021-05-11] MEDS: DEXAMETHASONE SOD PHOSPHATE 10 MG/ML 1 ML VIAL IVP SCH (08:45)
[2021-05-11] MEDS: ASCORBIC ACID 500 MG TAB PO SCH (08:45)
[2021-05-11 08:48] LABS: ALT 77 U/L (4-34); AST 31 U/L (14-36); African American GFR (CKD) >90 (>60 ml/min/1.73 sqM); Albumin 2.6 g/dL (3.5-5.0); Alkaline Phosphatase 76 U/L (38-126); Anion Gap 1 mmol/L; Blood Urea Nitrogen 8 mg/dL (7-17); Calcium 8.6 mg/dL (8.4-10.2); Carbon Dioxide 34 mmol/L (22-30); Chloride 103 mmol/L (98-107); Glucose 83 mg/dL (74-99); Non-African American GFR(CKD) >90 (>60 ml/min/1.73 sqM); Potassium 3.5 mmol/L (3.5-5.1); Sodium 138 mmol/L (137-145); Total Bilirubin 0.5 mg/dL (0.2-1.3); Total Protein 5.8 g/dL (6.3-8.2)
--- NOTE | 2021-05-11 11:53 | P.PN ---
Subjective Progress Note Date: 05/11/21 The patient is seen today 05/10/2021 in follow-up in the intensive care unit. She remains intubated on mechanical ventilator currently on pressure assist- control mode with a inspiratory pressure of 20, inspiratory time of 0.9. Respiratory rate 28, FiO2 50%, PEEP of 12. Morning blood gases revealed a PaO2 of 89, pCO2 58, pH 7.42. She is sedated on propofol at 75 mg/kg/m. She is on fentanyl at 1.5 mcg/kg/m. Normal saline at KVO. Tube feedings are currently on hold. The plan is for a tracheostomy and PEG tube placements today. Lovenox remains on hold for the same. Chest x-ray continues to reveal bilateral patchy densities consistent with COVID-19 pneumonia. Sputum cultures reveal no growth. White count 10.3. Hemoglobin 10.3. Sodium 139. Potassium 3.7. Creatinine 0.43. Glucose 86. AST 33. ALT 86. Albumin 2.6. She is continued on Decadron, Lovenox, vitamin supplements. Protonix for GI prophylaxis. Chandrika The patient is seen today 05/11/2021 in follow-up in the intensive care unit. She did undergo tracheostomy tube and PEG tube placements yesterday. She remains on the mechanical ventilator and pressure controlled mode with a inspiratory time of 0.9 seconds inspiratory pressure at 20. Respiratory rate at 28. FiO2 40% and a PEEP of 12. Morning blood gases reveal a P O2 of 73, pCO2 48, pH 7.4. She is sedated on propofol at 75 mcg/kg/m. Fentanyl at 1.5 g/kg per hour. Normal saline at KVO. She remains nothing by mouth until noontime and her tube feedings can be resumed. Chest x-ray continues to show bilateral consolidative airspace infiltrates. Unchanged compared to previous. No evidence of pneumothorax. Sputum culture reveals no growth. White count 8.7. Hemoglobin 10.3. Sodium 138. Potassium 3.5. Creatinine 0.33. AST 31. ALT 77. She is continued on Decadron, Lovenox, vitamin supplements. Objective - Vital Signs Vital signs: Vital Signs Temp 97.7 F 05/11/21 08:00 Pulse 73 05/11/21 11:00 Resp 28 H 05/11/21 11:00 BP 93/55 05/09/21 12:00 Pulse Ox 93 L 05/11/21 11:00 Intake & Output 05/10/21 05/11/21 05/11/21 18:59 06:59 18:59 Intake Total 1187.887 992.209 309.265 Output Total 1315 905 205 Balance -127.113 87.209 104.265 Weight 109.6 kg 105.914 kg Intake: IV 476 276 92 Pressure Bag 36 36 12 Sodium Chloride 0.9% 1, 240 240 80 000 ml @ 20 mls/hr IV . Q24H [facility] Rx#:[id number] Intake, IV Titration 711.887 716.209 217.265 Amount fentaNYL (PF) 2,500 mcg 249.733 232.474 In Sodium Chloride 0.9% 200 ml @ 0.5 MCG/KG/HR 5. 23 mls/hr IV .Q24H [facility] Rx #:[id number] propofoL 1,000 mg In 462.154 483.735 217.265 Empty Bag 1 bag @ Titrate IV .Q0M [facility] Rx#: [id number] Output: Urine 1305 905 205 Estimated Blood Loss 10 Other: Voiding Method Indwelling Catheter Indwelling Catheter Indwelling Catheter ABP, PAP, CO, CI - Last Documented Arterial Blood Pressure 138/67 - Exam GENERAL EXAM: Intubated, sedated, 46-year-old female patient, on the mechanical ventilator currently on pressure control mode of ventilation with a PI of 20, TI of 0.9 sec, FiO2 of 40% and PEEP of 12, and a resp rate of 28 HEAD: Normocephalic/atraumatic. EYES: Sluggish reaction of pupils, equal size. Conjunctiva pink, sclera white. NOSE: Clear with pink turbinates. THROAT: Oral endotracheal and gastric tube secured in place. No erythema or exudates. NECK: No masses, no JVD, no thyroid enlargement, no adenopathy. CHEST: No chest wall deformity. Symmetrical expansion. LUNGS: Equal air entry with coarse crackles at bilateral bases. CVS: Regular rate and rhythm, normal S1 and S2, no gallops, no murmurs, no rubs ABDOMEN: Soft, nontender. No hepatosplenomegaly, normal bowel sounds, no guarding or rigidity. EXTREMITIES: No clubbing, no edema, no cyanosis, 2+ pulses and upper and lower extremities. MUSCULOSKELETAL: Muscle strength and tone normal. SPINE: No scoliosis or deformity SKIN: No rashes CENTRAL NERVOUS SYSTEM: Intubated and sedated. No focal deficits, tone is normal in all 4 extremities. - Labs CBC & Chem 7: 05/11/21 07:48 05/11/21 07:48 Labs: Abnormal Lab Results - Last 24 Hours (Table) 05/10/21 05/10/21 05/11/21 Range/Units 12:27 23:49 05:30 RBC (3.80-5.40) m/uL Hgb (11.4-16.0) gm/dL Hct (34.0-46.0) % ABG pCO2 (35-45) mmHg ABG pO2 (83-108) mmHg ABG HCO3 (21-25) mmol/L ABG Total CO2 (19-24) mmol/L Carbon Dioxide (22-30) mmol/L Creatinine (0.52-1.04) mg/dL POC Glucose (mg/dL) 72 L 69 L 56 L (75-99) mg/dL ALT (4-34) U/L Total Protein (6.3-8.2) g/dL Albumin (3.5-5.0) g/dL 05/11/21 05/11/21 05/11/21 Range/Units 05:43 06:15 07:48 RBC 3.28 L (3.80-5.40) m/uL Hgb 10.3 L (11.4-16.0) gm/dL Hct 32.6 L (34.0-46.0) % ABG pCO2 58 H (35-45) mmHg ABG pO2 73 L (83-108) mmHg ABG HCO3 37 H (21-25) mmol/L ABG Total CO2 38 H (19-24) mmol/L Carbon Dioxide (22-30) mmol/L Creatinine (0.52-1.04) mg/dL POC Glucose (mg/dL) 57 L (75-99) mg/dL ALT (4-34) U/L Total Protein (6.3-8.2) g/dL Albumin (3.5-5.0) g/dL 05/11/21 Range/Units 07:48 RBC (3.80-5.40) m/uL Hgb (11.4-16.0) gm/dL Hct (34.0-46.0) % ABG pCO2 (35-45) mmHg ABG pO2 (83-108) mmHg ABG HCO3 (21-25) mmol/L ABG Total CO2 (19-24) mmol/L Carbon Dioxide 34 H (22-30) mmol/L Creatinine 0.33 L (0.52-1.04) mg/dL POC Glucose (mg/dL) (75-99) mg/dL ALT 77 H (4-34) U/L Total Protein 5.8 L (6.3-8.2) g/dL Albumin 2.6 L (3.5-5.0) g/dL Microbiology - Last 24 Hours (Table) 05/08/21 23:20 Gram Stain - Final Sputum Sputum Culture - Final Assessment and Plan Assessment: 1 Acute hypoxic respiratory failure secondary to COVID-19 pneumonia. Patient is a non-vaccinated adult. Initial diagnosis was established on 04/13/2021, p ziyad was hospitalized and discharged home on 04/18/2021, readmitted with worsening hypoxia and dyspnea, and intubated on 04/27/2021. She remains intubated and mechanically ventilated today on 05/10/2021. Patient was initially placed on Baricitinib which was discontinued because of concern of inf ection related to mildly elevated pro calcitonin. Currently pro calcitonin level is improved, patient completed cefepime for empiric antibiotic coverage with no positive bacterial growth on cultures except for staph epidermidis on blood culture. Follow-up cultures have been negative thus far, 2 Acute right lower lobe pulmonary embolism and right popliteal DVT, currently on therapeutic dose of Lovenox 100 mg twice daily 3 Acute respiratory acidosis, improved 4 History of hypothyroidism 5 History of marijuana smoking 6 Anxiety 7 Increased LFTs, likely related to viral pneumonia, improved 8 Elevated inflammatory markers, improving Plan: The patient was seen and evaluated Chest x-ray, ABGs and labs reviewed Tracheostomy and PEG tube placed yesterday Tube feedings and Lovenox to be resumed We will continue with the current treatment plan Plan for daily interruption of sedation We will continue to follow and make further recommendations based on her clinical status Critical care time 37 minutes I, the cosigning physician, performed a history & physical examination of the patient. Lungs sounds with coarse crackles in the bilateral bases. Maintaining O2 saturations in the 90s on 40% FiO2 and a PEEP of 12 via the mechanical ventilator. I discussed the assessment and plan of care with my nurse practitioner, Roxane Carrington. I attest to the above note as dictated by her.
[2021-05-11] MEDS ORDERED: DEXTROSE 50% SYRINGE 50 ML IVP ONE ×2 (12:16→12:30)
[2021-05-11] MEDS: SODIUM CHLORIDE 0.9% 500 ML 500 ML IV SCH (12:20)
[2021-05-11 12:26] LABS: Glucose,Whole Blood 48 mg/dL (75-99)
[2021-05-11 12:31] LABS: Glucose,Whole Blood 67 mg/dL (75-99)
[2021-05-11 12:50] LABS: Glucose,Whole Blood 100 mg/dL (75-99)
--- NOTE | 2021-05-11 14:12 | P.PN ---
Subjective Progress Note Date: 05/11/21 CHIEF COMPLAINT: Coronavirus pneumonia HISTORY OF PRESENT ILLNESS: The patient is a 46-year-old female status post tracheostomy and gastrostomy placement 05/10/2021. No new issues overnight. ROS: No fevers or chills. No new chest pain. PHYSICAL EXAM: VITAL SIGNS: Reviewed CONSTITUTIONAL: Well developed and in no acute distress. EYES: Conjuctivae without sclera icterus. Extraocular movements grossly intact. HEAD, EARS, NOSE, THROAT: Moist buccal mucosa. Head is atraumatic, normocephalic. No nasal drainage. Tracheostomy site intact. RESPIRATORY: Non-labored respirations and equal bilateral excursions. CARDIOVASCULAR: Palpable 2+ radial pulses. ABDOMEN: Gastrostomy tube intact. MUSCULOSKELETAL: No gross deformity of the lower extremities noted. No clubbing. No cyanosis. SKIN: Good skin turgor. Well perfused. NEUROLOGIC: Cranial nerves II through XII grossly intact. No focal or lateralizing signs. PSYCH: Sedated. CLINICAL LABS: Reviewed. WBC normal 8.7. Hemoglobin 10.3 with anemia. ASSESSMENT: 1. Coronavirus pneumonia with complications 2. Status post tracheostomy and gastrostomy PLAN: 1. Tube feeds per dietary goals 2. Mechanical ventilation management per intensive care team Objective - Vital Signs Vital signs: Vital Signs Temp 97.7 F 05/11/21 08:00 Pulse 73 05/11/21 11:00 Resp 28 H 05/11/21 11:00 BP 93/55 05/09/21 12:00 Pulse Ox 93 L 05/11/21 11:00 Intake & Output 05/10/21 05/11/21 05/11/21 18:59 06:59 18:59 Intake Total 1187.887 992.209 309.265 Output Total 1315 905 205 Balance -127.113 87.209 104.265 Weight 109.6 kg 105.914 kg Intake: IV 476 276 92 Pressure Bag 36 36 12 Sodium Chloride 0.9% 1, 240 240 80 000 ml @ 20 mls/hr IV . Q24H [facility] Rx#:[id number] Intake, IV Titration 711.887 716.209 217.265 Amount fentaNYL (PF) 2,500 mcg 249.733 232.474 In Sodium Chloride 0.9% 200 ml @ 0.5 MCG/KG/HR 5. 23 mls/hr IV .Q24H [facility] Rx #:[id number] propofoL 1,000 mg In 462.154 483.735 217.265 Empty Bag 1 bag @ Titrate IV .Q0M [facility] Rx#: [id number] Output: Urine 1305 905 205 Estimated Blood Loss 10 Other: Voiding Method Indwelling Catheter Indwelling Catheter Indwelling Catheter ABP, PAP, CO, CI - Last Documented Arterial Blood Pressure 138/67 - Labs CBC & Chem 7: 05/11/21 07:48 05/11/21 07:48 Labs: Abnormal Lab Results - Last 24 Hours (Table) 05/10/21 05/10/21 05/11/21 Range/Units 12:27 23:49 05:30 RBC (3.80-5.40) m/uL Hgb (11.4-16.0) gm/dL Hct (34.0-46.0) % ABG pCO2 (35-45) mmHg ABG pO2 (83-108) mmHg ABG HCO3 (21-25) mmol/L ABG Total CO2 (19-24) mmol/L Carbon Dioxide (22-30) mmol/L Creatinine (0.52-1.04) mg/dL POC Glucose (mg/dL) 72 L 69 L 56 L (75-99) mg/dL ALT (4-34) U/L Total Protein (6.3-8.2) g/dL Albumin (3.5-5.0) g/dL 05/11/21 05/11/21 05/11/21 Range/Units 05:43 06:15 07:48 RBC 3.28 L (3.80-5.40) m/uL Hgb 10.3 L (11.4-16.0) gm/dL Hct 32.6 L (34.0-46.0) % ABG pCO2 58 H (35-45) mmHg ABG pO2 73 L (83-108) mmHg ABG HCO3 37 H (21-25) mmol/L ABG Total CO2 38 H (19-24) mmol/L Carbon Dioxide (22-30) mmol/L Creatinine (0.52-1.04) mg/dL POC Glucose (mg/dL) 57 L (75-99) mg/dL ALT (4-34) U/L Total Protein (6.3-8.2) g/dL Albumin (3.5-5.0) g/dL 05/11/21 Range/Units 07:48 RBC (3.80-5.40) m/uL Hgb (11.4-16.0) gm/dL Hct (34.0-46.0) % ABG pCO2 (35-45) mmHg ABG pO2 (83-108) mmHg ABG HCO3 (21-25) mmol/L ABG Total CO2 (19-24) mmol/L Carbon Dioxide 34 H (22-30) mmol/L Creatinine 0.33 L (0.52-1.04) mg/dL POC Glucose (mg/dL) (75-99) mg/dL ALT 77 H (4-34) U/L Total Protein 5.8 L (6.3-8.2) g/dL Albumin 2.6 L (3.5-5.0) g/dL Microbiology - Last 24 Hours (Table) 05/08/21 23:20 Gram Stain - Final Sputum Sputum Culture - Final
[2021-05-11 17:13] LABS: Glucose,Whole Blood 76 mg/dL (75-99)
[2021-05-11] MEDS: FLUCONAZOLE 100 MG TAB PO SCH (20:42)
[2021-05-11 23:38] LABS: Glucose,Whole Blood 76 mg/dL (75-99)
[2021-05-11] MEDS: POTASSIUM BICARBONATE/CIT AC 20 MEQ TABLET.EFF NG-TUBE SCH (23:55)
[2021-05-12 04:52] LABS: Basophils % (A) 0 %; Eosinophils # (A) 0.4 k/uL (0-0.7); Eosinophils % (A) 4 %; HCT 35.5 % (34.0-46.0); HGB 11.3 gm/dL (11.4-16.0); Lymphocytes # (A) 1.4 k/uL (1.0-4.8); Lymphocytes % (A) 14 %; MCHC 31.7 g/dL (31.0-37.0); MCV 97.8 fL (80.0-100.0); Mean Platelet Volume 9.2; Monocytes # (A) 0.5 k/uL (0-1.0); Monocytes % (A) 5 %; Neutrophils # (A) 7.5 k/uL (1.3-7.7); Neutrophils % (A) 75 %; Platelet Count 327 k/uL (150-450); RBC 3.63 m/uL (3.80-5.40); RDW 14.7 % (11.5-15.5)
[2021-05-12 05:18] LABS: ALT 59 U/L (4-34); AST 24 U/L (14-36); African American GFR (CKD) >90 (>60 ml/min/1.73 sqM); Albumin 2.6 g/dL (3.5-5.0); Alkaline Phosphatase 80 U/L (38-126); Anion Gap 0 mmol/L; Blood Urea Nitrogen 7 mg/dL (7-17); Calcium 8.5 mg/dL (8.4-10.2); Carbon Dioxide 35 mmol/L (22-30); Chloride 104 mmol/L (98-107); Glucose 95 mg/dL (74-99); Non-African American GFR(CKD) >90 (>60 ml/min/1.73 sqM); Potassium 3.6 mmol/L (3.5-5.1); Sodium 139 mmol/L (137-145); Total Bilirubin 0.8 mg/dL (0.2-1.3); Total Protein 5.9 g/dL (6.3-8.2)
[2021-05-12 05:25] LABS: Glucose,Whole Blood 89 mg/dL (75-99)
[2021-05-12 05:40] LABS: ABG HCO3 35 mmol/L (21-25); ABG Oxygen Saturation 94.7 % (94-97); ABG PCO2 47 mmHg (35-45); ABG PH 7.49 (7.35-7.45); ABG PO2 67 mmHg (83-108); ABG TCO2 37 mmol/L (19-24)
[2021-05-12 05:42] LABS: Allen Test Performed? no
[2021-05-12] MEDS: INSULIN ASPART (NovoLOG) 100 UNIT/ML VIAL SQ SCH ×4 (05:51→23:13)
[2021-05-12] MEDS: LEVOTHYROXINE 112 MCG TAB PO SCH (05:51)
[2021-05-12] MEDS ORDERED: POTASSIUM BICARBONATE/CIT AC 20 MEQ TABLET.EFF NG-TUBE SCH (06:00)
--- NOTE | 2021-05-12 06:27 | XR ---
EXAMINATION TYPE: XR chest 1V portable DATE OF EXAM: 05/12/2021 COMPARISON: 05/11/2021 HISTORY: Covid TECHNIQUE: Single frontal view of the chest is obtained. FINDINGS: No change in the tracheostomy tube or right-sided PICC line. No change in the partially consolidative diffuse lung opacities. No pneumothorax or large pleural effusion. Osseous structures are intact. IMPRESSION: No change in the diffuse acute cardiopulmonary disease.
[2021-05-12] MEDS: ALBUTEROL HFA INHALER INHALATION SCH ×4 (07:43→20:06)
[2021-05-12] MEDS: ENOXAPARIN 100 MG/ML SYRINGE SQ SCH ×2 (08:43→19:30)
[2021-05-12] MEDS: CHOLECALCIFEROL 125 MCG (5000 IU) TABLET PO SCH (08:43)
[2021-05-12] MEDS: QUEtiapine 50 MG TAB PO SCH ×2 (08:43→19:30)
[2021-05-12] MEDS: FLUCONAZOLE 100 MG TAB PO SCH ×2 (08:43→19:30)
[2021-05-12] MEDS: bisacodyL 10 MG SUPP RECTAL SCH (08:43)
[2021-05-12] MEDS: ASCORBIC ACID 500 MG TAB PO SCH (08:43)
[2021-05-12] MEDS: ZINC SULFATE 220 MG CAP PO SCH (08:43)
[2021-05-12] MEDS: PANTOPRAZOLE 40 MG/10 ML VIAL IVP SCH (08:44)
[2021-05-12] MEDS: DEXAMETHASONE SOD PHOSPHATE 10 MG/ML 1 ML VIAL IVP SCH (08:44)
[2021-05-12] MEDS: CHLORHEXIDINE GLUCONATE 15 ML CUP MUCOUS MEM SCH ×2 (08:45→19:30)
[2021-05-12] MEDS: DEXMEDETOMIDINE/0.9% NACL(PMX) 400 MCG in EMPTY BAG 1 BAG IV SCH ×5 (10:17→21:52)
[2021-05-12 11:40] LABS: Glucose,Whole Blood 95 mg/dL (75-99)
[2021-05-12] MEDS: fentaNYL (PF) 2,500 MCG in SODIUM CHLORIDE 0.9% 200 ML IV SCH (12:52)
--- NOTE | 2021-05-12 13:06 | P.PN ---
Subjective Progress Note Date: 05/12/21 The patient is seen today 05/10/2021 in follow-up in the intensive care unit. She remains intubated on mechanical ventilator currently on pressure assist- control mode with a inspiratory pressure of 20, inspiratory time of 0.9. Respiratory rate 28, FiO2 50%, PEEP of 12. Morning blood gases revealed a PaO2 of 89, pCO2 58, pH 7.42. She is sedated on propofol at 75 mg/kg/m. She is on fentanyl at 1.5 mcg/kg/m. Normal saline at KVO. Tube feedings are currently on hold. The plan is for a tracheostomy and PEG tube placements today. Lovenox remains on hold for the same. Chest x-ray continues to reveal bilateral patchy densities consistent with COVID-19 pneumonia. Sputum cultures reveal no growth. White count 10.3. Hemoglobin 10.3. Sodium 139. Potassium 3.7. Creatinine 0.43. Glucose 86. AST 33. ALT 86. Albumin 2.6. She is continued on Decadron, Lovenox, vitamin supplements. Protonix for GI prophylaxis. The patient is seen today 05/11/2021 in follow-up in the intensive care unit. She did undergo tracheostomy tube and PEG tube placements yesterday. She remains on the mechanical ventilator and pressure controlled mode with a inspiratory time of 0.9 seconds inspiratory pressure at 20. Respiratory rate at 28. FiO2 40% and a PEEP of 12. Morning blood gases reveal a P O2 of 73, pCO2 48, pH 7.4. She is sedated on propofol at 75 mcg/kg/m. Fentanyl at 1.5 g/kg per hour. Normal saline at KVO. She remains nothing by mouth until noontime and her tube feedings can be resumed. Chest x-ray continues to show bilateral consolidative airspace infiltrates. Unchanged compared to previous. No evidence of pneumothorax. Sputum culture reveals no growth. White count 8.7. Hemoglobin 10.3. Sodium 138. Potassium 3.5. Creatinine 0.33. AST 31. ALT 77. She is continued on Decadron, Lovenox, vitamin supplements. The patient is seen today 05/12/2021 in follow-up in the intensive care unit. She remains on the mechanical ventilator and pressure assist-control mode with t he inspiration pressure of 20 in the inspiration time of 0.9. Respiratory rate at 28. FiO2 40%. PEEP of 12. Morning blood gases reveal a P O2 of 67, pCO2 47, pH 7.49. She remains on light sedation with propofol at 10 mcg/kg/m, fentanyl at 1.5 mcg/kg per hour. 0.9 normal saline at KVO. She is being nourished with vital HPI 20 ML's per hour. Blood cultures reveal no growth. Sputum culture revealed no growth. White count 10.0. Hemoglobin 11.3. Sodium 139. Potassium 2.6. Bicarb 35. Creatinine 0.45. AST 24. ALT 59. Glucose 95. She is continued on Decadron, Lovenox, vitamin supplements. She remains in a negative balance. Chest x-ray continues to show by bilateral patchy opacit ies. Unchanged. Objective - Vital Signs Vital signs: Vital Signs Temp 99 F 05/12/21 12:00 Pulse 98 05/12/21 12:00 Resp 31 H 05/12/21 12:00 BP 93/55 05/09/21 12:00 Pulse Ox 95 05/12/21 12:00 Intake & Output 05/11/21 05/12/21 05/12/21 18:59 06:59 18:59 Intake Total 742.758 936.031 613.273 Output Total 1460 765 750 Balance -717.242 171.031 -136.727 Weight 107.592 kg Intake: IV 276 299 92 Pressure Bag 36 39 12 Sodium Chloride 0.9% 1, 240 260 80 000 ml @ 20 mls/hr IV . Q24H [facility] Rx#:[id number] Intake, IV Titration 366.758 287.031 351.273 Amount Dexmedetomidine/0.9% NaCl 17.215 (Pmx) 400 mcg In Empty Bag 1 bag @ 0.2 MCG/KG/HR 5.38 mls/hr IV .[id number] [facility] Rx#:[id number] fentaNYL (PF) 2,500 mcg 243.718 239.273 In Sodium Chloride 0.9% 200 ml @ 0.5 MCG/KG/HR 5. 23 mls/hr IV .Q24H [facility] Rx #:[id number] propofoL 1,000 mg In 366.758 43.313 94.785 Empty Bag 1 bag @ Titrate IV .Q0M [facility] Rx#: [id number] Tube Feeding 70 260 80 Other 30 90 90 Output: Urine 1460 765 750 Other: Voiding Method Indwelling Catheter Indwelling Catheter Indwelling Catheter ABP, PAP, CO, CI - Last Documented Arterial Blood Pressure 140/78 - Exam GENERAL EXAM: Intubated, sedated, 46-year-old female patient, on the mechanical ventilator currently on pressure control mode of ventilation with a PI of 20, TI of 0.9 sec, FiO2 of 40% and PEEP of 12, and a resp rate of 28 HEAD: Normocephalic/atraumatic. EYES: Sluggish reaction of pupils, equal size. Conjunctiva pink, sclera white. NOSE: Clear with pink turbinates. THROAT: Oral endotracheal and gastric tube secured in place. No erythema or exudates. NECK: No masses, no JVD, no thyroid enlargement, no adenopathy. CHEST: No chest wall deformity. Symmetrical expansion. LUNGS: Equal air entry with coarse crackles at bilateral bases. CVS: Regular rate and rhythm, normal S1 and S2, no gallops, no murmurs, no rubs ABDOMEN: Soft, nontender. No hepatosplenomegaly, normal bowel sounds, no guarding or rigidity. EXTREMITIES: No clubbing, no edema, no cyanosis, 2+ pulses and upper and lower extremities. MUSCULOSKELETAL: Muscle strength and tone normal. SPINE: No scoliosis or deformity SKIN: No rashes CENTRAL NERVOUS SYSTEM: Intubated and sedated. No focal deficits, tone is normal in all 4 extremities. - Labs CBC & Chem 7: 05/12/21 04:20 05/12/21 04:20 Labs: Abnormal Lab Results - Last 24 Hours (Table) 05/12/21 05/12/21 05/12/21 Range/Units 04:20 04:20 05:38 RBC 3.63 L (3.80-5.40) m/uL Hgb 11.3 L (11.4-16.0) gm/dL ABG pH 7.49 H (7.35-7.45) ABG pCO2 47 H (35-45) mmHg ABG pO2 67 L (83-108) mmHg ABG HCO3 35 H (21-25) mmol/L ABG Total CO2 37 H (19-24) mmol/L Carbon Dioxide 35 H (22-30) mmol/L Creatinine 0.45 L (0.52-1.04) mg/dL ALT 59 H (4-34) U/L Total Protein 5.9 L (6.3-8.2) g/dL Albumin 2.6 L (3.5-5.0) g/dL Microbiology - Last 24 Hours (Table) 05/08/21 23:20 Gram Stain - Final Sputum Sputum Culture - Final Assessment and Plan Assessment: 1 Acute hypoxic respiratory failure secondary to COVID-19 pneumonia. Patient is a non-vaccinated adult. Initial diagnosis was established on 04/13/2021, patient was hospitalized and discharged home on 04/18/2021, readmitted with worsening hypoxia and dyspnea, and intubated on 04/27/2021. Tracheostomy and PEG tubes placed on 05/10/2021. Patient was initially placed on Baricitinib which was discontinued because of concern of infection related to mildly elevated pro calcitonin. Currently pro calcitonin level is improved, patient completed cefepime for empiric antibiotic coverage with no positive bacterial growth on cultures except for staph epidermidis on blood culture. Follow-up cultures have been negative thus far, 2 Acute right lower lobe pulmonary embolism and right popliteal DVT, currently on therapeutic dose of Lovenox 100 mg twice daily 3 Acute respiratory acidosis, improved 4 History of hypothyroidism 5 History of marijuana smoking 6 Anxiety 7 Increased LFTs, likely related to viral pneumonia, improved 8 Elevated inflammatory markers, improving Plan: The patient was seen and evaluated Chest x-ray, ABGs and labs reviewed We will continue with the current treatment plan Plan for daily interruption of sedation May use Precedex if needed We will continue to follow and make further recommendations based on her clinical status Critical care time 35 minutes I, the cosigning physician, performed a history & physical examination of the patient. Lungs sounds with coarse crackles in the bilateral bases. Maintaining O2 saturations in the 90s on 40% FiO2 and a PEEP of 12 via the mechanical ventilator. I discussed the assessment and plan of care with my nurse practitioner, Roxane Carrington. I attest to the above note as dictated by her.
[2021-05-12] MEDS: SODIUM CHLORIDE 0.9% 500 ML 500 ML IV SCH (13:10)
--- NOTE | 2021-05-12 14:56 | P.PN ---
Subjective Progress Note Date: 05/12/21 CHIEF COMPLAINT: Coronavirus pneumonia HISTORY OF PRESENT ILLNESS: The patient is a 46-year-old female status post tracheostomy and gastrostomy placement 05/10/2021. Patient was able to awake. Patient follows commands. On ventilatory support. ROS: No fevers or chills. No new chest pain. PHYSICAL EXAM: VITAL SIGNS: Reviewed CONSTITUTIONAL: Well developed and in no acute distress. EYES: Conjuctivae without sclera icterus. Extraocular movements grossly intact. HEAD, EARS, NOSE, THROAT: Moist buccal mucosa. Head is atraumatic, normocephalic. No nasal drainage. Tracheostomy site intact. RESPIRATORY: Non-labored respirations and equal bilateral excursions. CARDIOVASCULAR: Palpable 2+ radial pulses. ABDOMEN: Gastrostomy tube intact. MUSCULOSKELETAL: No gross deformity of the lower extremities noted. No clubbing. No cyanosis. SKIN: Good skin turgor. Well perfused. NEUROLOGIC: Cranial nerves II through XII grossly intact. No focal or lateralizing signs. PSYCH: Awakes. CLINICAL LABS: Reviewed. WBC normal 8.7. Hemoglobin 10.3 with anemia. ASSESSMENT: 1. Coronavirus pneumonia with complications 2. Status post tracheostomy and gastrostomy PLAN: 1. Supportive management for coronavirus pneumonia Objective - Vital Signs Vital signs: Vital Signs Temp 99 F 05/12/21 12:00 Pulse 79 05/12/21 14:00 Resp 28 H 05/12/21 14:00 BP 93/55 05/09/21 12:00 Pulse Ox 97 05/12/21 14:00 Intake & Output 05/11/21 05/12/21 05/12/21 18:59 06:59 18:59 Intake Total 742.758 936.031 855.058 Output Total 2599 771 1491 Balance -717.242 171.031 -269.942 Weight 107.592 kg Intake: IV 276 299 161 Pressure Bag 36 39 21 Sodium Chloride 0.9% 1, 240 260 140 000 ml @ 20 mls/hr IV . Q24H [facility] Rx#:[id number] Intake, IV Titration 366.758 287.031 434.058 Amount Dexmedetomidine/0.9% NaCl 100.000 (Pmx) 400 mcg In Empty Bag 1 bag @ 0.2 MCG/KG/HR 5.38 mls/hr IV .[id number] [facility] Rx#:[id number] fentaNYL (PF) 2,500 mcg 243.718 239.273 In Sodium Chloride 0.9% 200 ml @ 0.5 MCG/KG/HR 5. 23 mls/hr IV .Q24H [facility] Rx #:[id number] propofoL 1,000 mg In 366.758 43.313 94.785 Empty Bag 1 bag @ Titrate IV .Q0M [facility] Rx#: [id number] Tube Feeding 70 260 140 Other 30 90 120 Output: Urine 0514 394 3378 Other: Voiding Method Indwelling Catheter Indwelling Catheter Indwelling Catheter ABP, PAP, CO, CI - Last Documented Arterial Blood Pressure 116/63 - Labs CBC & Chem 7: 05/12/21 04:20 05/12/21 04:20 Labs: Abnormal Lab Results - Last 24 Hours (Table) 05/12/21 05/12/21 05/12/21 Range/Units 04:20 04:20 05:38 RBC 3.63 L (3.80-5.40) m/uL Hgb 11.3 L (11.4-16.0) gm/dL ABG pH 7.49 H (7.35-7.45) ABG pCO2 47 H (35-45) mmHg ABG pO2 67 L (83-108) mmHg ABG HCO3 35 H (21-25) mmol/L ABG Total CO2 37 H (19-24) mmol/L Carbon Dioxide 35 H (22-30) mmol/L Creatinine 0.45 L (0.52-1.04) mg/dL ALT 59 H (4-34) U/L Total Protein 5.9 L (6.3-8.2) g/dL Albumin 2.6 L (3.5-5.0) g/dL
--- NOTE | 2021-05-12 16:13 | P.PN ---
Subjective Progress Note Date: 05/11/21 Principal diagnosis: Pneumonia and bacteremia Interval history : Patient is a 46-year-old -[place] female with admission diagnoses: Acute COVID-19 pneumonia subsequently admission to the hospital with worsening respiratory status has been diagnosed with a DVT and PE. The patient is status post trach and PEG tube placement as of 05/10/2021 On today's evaluation that is 05/11/2021, The patient continues to be afebrile, the patient is hemodynamically stable not requiring any pressor support , the patient FiO2 is down to 40 %, no purulent secretion through the ET has been reported by the nursing staff, patient has been tolerating tube feeds and no diarrhea has been reported, Objective - Vital Signs Vital signs: Vital Signs Temp 97.8 F 05/11/21 20:00 Pulse 101 H 05/11/21 22:00 Resp 14 05/11/21 22:00 BP 93/55 05/09/21 12:00 Pulse Ox 93 L 05/11/21 22:00 Intake & Output 05/11/21 05/11/21 05/12/21 06:59 18:59 06:59 Intake Total 992.209 742.758 494.358 Output Total 905 1460 200 Balance 87.209 -717.242 294.358 Weight 105.914 kg Intake: IV 276 276 115 Pressure Bag 36 36 15 Sodium Chloride 0.9% 1, 240 240 100 000 ml @ 20 mls/hr IV . Q24H [facility] Rx#:[id number] Intake, IV Titration 716.209 366.758 249.358 Amount fentaNYL (PF) 2,500 mcg 232.474 243.718 In Sodium Chloride 0.9% 200 ml @ 0.5 MCG/KG/HR 5. 23 mls/hr IV .Q24H [facility] Rx #:[id number] propofoL 1,000 mg In 483.735 366.758 5.64 Empty Bag 1 bag @ Titrate IV .Q0M [facility] Rx#: [id number] Tube Feeding 70 100 Other 30 30 Output: Urine 905 1460 200 Other: Voiding Method Indwelling Catheter Indwelling Catheter Indwelling Catheter ABP, PAP, CO, CI - Last Documented Arterial Blood Pressure 99/48 - Exam GENERAL DESCRIPTION: Middle-aged female intubated on the vent RESPIRATORY SYSTEM: Unlabored breathing , decreased breath sounds at bases, no wheeze HEART: S1 S2 regular rate and rhythm ,no loud murmurs ABDOMEN: Soft , no tenderness EXTREMITIES: No edema feet - Labs CBC & Chem 7: 05/12/21 04:20 05/12/21 04:20 Labs: Abnormal Lab Results - Last 24 Hours (Table) 05/10/21 05/11/21 05/11/21 Range/Units 23:49 05:30 05:43 RBC (3.80-5.40) m/uL Hgb (11.4-16.0) gm/dL Hct (34.0-46.0) % ABG pCO2 (35-45) mmHg ABG pO2 (83-108) mmHg ABG HCO3 (21-25) mmol/L ABG Total CO2 (19-24) mmol/L Carbon Dioxide (22-30) mmol/L Creatinine (0.52-1.04) mg/dL POC Glucose (mg/dL) 69 L 56 L 57 L (75-99) mg/dL ALT (4-34) U/L Total Protein (6.3-8.2) g/dL Albumin (3.5-5.0) g/dL 05/11/21 05/11/21 05/11/21 Range/Units 06:15 07:48 07:48 RBC 3.28 L (3.80-5.40) m/uL Hgb 10.3 L (11.4-16.0) gm/dL Hct 32.6 L (34.0-46.0) % ABG pCO2 58 H (35-45) mmHg ABG pO2 73 L (83-108) mmHg ABG HCO3 37 H (21-25) mmol/L ABG Total CO2 38 H (19-24) mmol/L Carbon Dioxide 34 H (22-30) mmol/L Creatinine 0.33 L (0.52-1.04) mg/dL POC Glucose (mg/dL) (75-99) mg/dL ALT 77 H (4-34) U/L Total Protein 5.8 L (6.3-8.2) g/dL Albumin 2.6 L (3.5-5.0) g/dL 05/11/21 05/11/21 05/11/21 Range/Units 12:16 12:29 12:48 RBC (3.80-5.40) m/uL Hgb (11.4-16.0) gm/dL Hct (34.0-46.0) % ABG pCO2 (35-45) mmHg ABG pO2 (83-108) mmHg ABG HCO3 (21-25) mmol/L ABG Total CO2 (19-24) mmol/L Carbon Dioxide (22-30) mmol/L Creatinine (0.52-1.04) mg/dL POC Glucose (mg/dL) 48 L 67 L 100 H (75-99) mg/dL ALT (4-34) U/L Total Protein (6.3-8.2) g/dL Albumin (3.5-5.0) g/dL Microbiology - Last 24 Hours (Table) 05/08/21 23:20 Gram Stain - Final Sputum Sputum Culture - Final Assessment and Plan (1) Positive blood culture Current Visit: Yes Status: Acute Code(s): R78.81 - BACTEREMIA SNOMED Code(s): 721080522 (2) COVID-19 Current Visit: Yes Status: Acute Code(s): U07.1 - COVID-19 SNOMED Code(s): 959534146 Plan: 1-patient with a positive blood culture which has been finalized and staph epi likely skin contaminant, Repeat blood culture has been negative so far, patient is currently being monitored closely off vancomycin 2-acute respiratory failure which is multifactorial possible component of pneumonia, Sputum has been usual respiratory pat White count is normal and the patient has been afebrile, the patient completed course of cefepime and will monitor closely off antibiotic therapy Time with Patient: Less than 30
--- NOTE | 2021-05-12 16:15 | P.PN ---
Subjective Progress Note Date: 05/12/21 Principal diagnosis: Pneumonia and bacteremia Interval history : Patient is a 46-year-old -[place]ian female with admission diagnoses of Acute COVID-19 pneumonia subsequently admission to the hospital with worsening respiratory status has been diagnosed with a DVT and PE. The patient is status post trach and PEG tube placement as of 05/10/2021 On today's evaluation that is 05/12/2021, The patient did have a low-grade fever of 99.9F, the patient is hemodynamically stable not requiring any pressor support , the patient FiO2 is down to 40 %, no purulent secretion through the ET has been reported by the nursing staff, patient has been tolerating tube feeds and no diarrhea has been reported, patient's sedation has been weaned off and the patient is slowly waking up currently nursing staff Objective - Vital Signs Vital signs: Vital Signs Temp 99.9 F H 05/12/21 16:00 Pulse 98 05/12/21 16:00 Resp 31 H 05/12/21 16:00 BP 93/55 05/09/21 12:00 Pulse Ox 94 L 05/12/21 16:00 Intake & Output 05/11/21 05/12/21 05/12/21 18:59 06:59 18:59 Intake Total 742.758 887.496 4922.165 Output Total 5776 196 2362 Balance -717.242 171.031 -352.835 Weight 107.592 kg Intake: IV 276 299 207 Pressure Bag 36 39 27 Sodium Chloride 0.9% 1, 240 260 180 000 ml @ 20 mls/hr IV . Q24H [facility] Rx#:[id number] Intake, IV Titration 366.758 287.031 485.165 Amount Dexmedetomidine/0.9% NaCl 151.107 (Pmx) 400 mcg In Empty Bag 1 bag @ 0.2 MCG/KG/HR 5.38 mls/hr IV .[id number] [facility] Rx#:[id number] fentaNYL (PF) 2,500 mcg 243.718 239.273 In Sodium Chloride 0.9% 200 ml @ 0.5 MCG/KG/HR 5. 23 mls/hr IV .Q24H [facility] Rx #:[id number] propofoL 1,000 mg In 366.758 43.313 94.785 Empty Bag 1 bag @ Titrate IV .Q0M [facility] Rx#: [id number] Tube Feeding 70 260 180 Other 30 90 150 Output: Urine 7717 031 5103 Other: Voiding Method Indwelling Catheter Indwelling Catheter Indwelling Catheter ABP, PAP, CO, CI - Last Documented Arterial Blood Pressure 143/80 - Exam GENERAL DESCRIPTION: Middle-aged female intubated on the vent RESPIRATORY SYSTEM: Unlabored breathing , decreased breath sounds at bases, no wheeze HEART: S1 S2 regular rate and rhythm ,no loud murmurs ABDOMEN: Soft , no tenderness EXTREMITIES: No edema feet - Labs CBC & Chem 7: 05/12/21 04:20 05/12/21 04:20 Labs: Abnormal Lab Results - Last 24 Hours (Table) 05/12/21 05/12/21 05/12/21 Range/Units 04:20 04:20 05:38 RBC 3.63 L (3.80-5.40) m/uL Hgb 11.3 L (11.4-16.0) gm/dL ABG pH 7.49 H (7.35-7.45) ABG pCO2 47 H (35-45) mmHg ABG pO2 67 L (83-108) mmHg ABG HCO3 35 H (21-25) mmol/L ABG Total CO2 37 H (19-24) mmol/L Carbon Dioxide 35 H (22-30) mmol/L Creatinine 0.45 L (0.52-1.04) mg/dL ALT 59 H (4-34) U/L Total Protein 5.9 L (6.3-8.2) g/dL Albumin 2.6 L (3.5-5.0) g/dL Assessment and Plan (1) Positive blood culture Current Visit: Yes Status: Acute Code(s): R78.81 - BACTEREMIA SNOMED Code(s): 791410875 (2) COVID-19 Current Visit: Yes Status: Acute Code(s): U07.1 - COVID-19 SNOMED Code(s): 583567727 Plan: 1-patient with a positive blood culture which has been finalized and staph epi likely skin contaminant, Repeat blood culture has been negative so far, none for vancomycin 2-acute respiratory failure which is multifactorial possible component of pneumonia, Sputum has been usual respiratory pat White count is normal and the patient has completed course of cefepime and will monitor closely off antibiotic therapy, is like any further we will obtain cultures before starting antibiotics Time with Patient: Less than 30
[2021-05-12 17:52] LABS: Glucose,Whole Blood 104 mg/dL (75-99)
[2021-05-12 23:11] LABS: Glucose,Whole Blood 105 mg/dL (75-99)
[2021-05-13] MEDS: DEXMEDETOMIDINE/0.9% NACL(PMX) 400 MCG in EMPTY BAG 1 BAG IV SCH ×7 (01:05→23:07)
[2021-05-13] MEDS: fentaNYL (PF) 2,500 MCG in SODIUM CHLORIDE 0.9% 200 ML IV SCH ×2 (03:55→22:42)
[2021-05-13 04:22] LABS: Basophils % (A) 0 %; Eosinophils # (A) 0.6 k/uL (0-0.7); Eosinophils % (A) 5 %; HCT 35.9 % (34.0-46.0); HGB 11.4 gm/dL (11.4-16.0); Lymphocytes # (A) 1.7 k/uL (1.0-4.8); Lymphocytes % (A) 14 %; MCHC 31.8 g/dL (31.0-37.0); MCV 97.5 fL (80.0-100.0); Mean Platelet Volume 8.8; Monocytes # (A) 0.6 k/uL (0-1.0); Monocytes % (A) 5 %; Neutrophils # (A) 8.9 k/uL (1.3-7.7); Neutrophils % (A) 74 %; Platelet Count 305 k/uL (150-450); RBC 3.68 m/uL (3.80-5.40); RDW 14.2 % (11.5-15.5)
[2021-05-13 04:38] LABS: ALT 49 U/L (4-34); AST 23 U/L (14-36); African American GFR (CKD) >90 (>60 ml/min/1.73 sqM); Albumin 2.7 g/dL (3.5-5.0); Alkaline Phosphatase 85 U/L (38-126); Anion Gap 2 mmol/L; Blood Urea Nitrogen 10 mg/dL (7-17); Calcium 8.8 mg/dL (8.4-10.2); Carbon Dioxide 30 mmol/L (22-30); Chloride 106 mmol/L (98-107); Glucose 110 mg/dL (74-99); Non-African American GFR(CKD) >90 (>60 ml/min/1.73 sqM); Potassium 3.8 mmol/L (3.5-5.1); Sodium 138 mmol/L (137-145); Total Bilirubin 0.8 mg/dL (0.2-1.3); Total Protein 6.1 g/dL (6.3-8.2)
[2021-05-13] MEDS ORDERED: POTASSIUM BICARBONATE/CIT AC 20 MEQ TABLET.EFF NG-TUBE SCH (05:00)
[2021-05-13 05:19] LABS: ABG Base Excess 7.4 mmol/L; ABG HCO3 32 mmol/L (21-25); ABG Oxygen Saturation 97.4 % (94-97); ABG PCO2 46 mmHg (35-45); ABG PH 7.44 (7.35-7.45); ABG PO2 87 mmHg (83-108); ABG TCO2 33 mmol/L (19-24); Allen Test Performed? Yes
[2021-05-13] MEDS: INSULIN ASPART (NovoLOG) 100 UNIT/ML VIAL SQ SCH ×3 (05:50→17:44)
[2021-05-13] MEDS: LEVOTHYROXINE 112 MCG TAB PO SCH (06:12)
[2021-05-13] MEDS: ALBUTEROL HFA INHALER INHALATION SCH ×4 (07:41→19:32)
--- NOTE | 2021-05-13 07:42 | XR ---
EXAMINATION TYPE: XR chest 1V portable DATE OF EXAM: 05/13/2021 COMPARISON: Chest x-ray 05/12/2021 HISTORY: Abnormal chest x-ray, ventilator TECHNIQUE: Single frontal view of the chest is obtained. FINDINGS: Tracheostomy tube is overlying the tracheal air column. Bilateral airspace disease shows a similar appearance. Right-sided PICC line is stable. No evident pneumothorax or pleural effusion. Ca rdiac mediastinal silhouette is unchanged. IMPRESSION: Findings consistent with pneumonia, consider ARDS, edema
--- NOTE | 2021-05-13 08:11 | P.PN ---
Subjective Progress Note Date: 05/13/21 45-year-old -[place] female patient who is currently in the hospital for Covid 19 related pneumonia. The patient was intubated and placed on mechanical ventilator due to extensive pneumonia/ARDS. Subsequently, the patient was given a tracheostomy tube on 05/10/2021. This morning, the patient is on a combination of sedation. The patient is on Precedex running at 1 mcg/kg per minute and the patient is also on fentanyl at 11.5 mcg/kg/h. The patient is off paralytics. She is responsive. She follows some simple commands. Her ventilator settings are currently an assist-control mode at the rate of 28, pressure control of 20, inspiratory time of 0.9 seconds, PEEP of 12 and FiO2 of 40%. Peak airway pressure is 33. The chest x-ray is showing diffuse bilateral pulmonary infiltrates. The tracheostomy tube Is high in the trachea. The patient has a PICC line in the right upper extremity. Meanwhile, the blood gases from today shows a pH of 7.44 with a pCO2 of 46 and pO2 of 87 and this was done and FiO2 of 40%. The patient remains on Decadron 6 mg IV every 24 hours. The patient is also on Lovenox 100 mg subcu twice a day as the patient was found to have a right lower extremity DVT on 04/28/2021 and since then the patient has been on therapeutic dose of Lovenox for note that she also had pulmonary embolism as evident on the CT angiogram that was obtained on 04/24/2021. CT an giogram showed right lower lobe pulmonary artery branch segmental filling defects. On today's evaluation, her white cell thousand 12 with a hemoglobin of 11.4 and a platelet count of 305. Sodium is at 138 with a potassium level of 3.8, chloride is 106 bicarb is at 30 with a BUN of 10 and a creatinine of 0.4. The patient is receiving enteral feeding for insurance support. She is currently on vital high protein at a rate of 20 mL an hour. She is on NovoLog sliding scale coverage. She is on Synthroid 112 g on a daily basis. She is also receiving Seroquel 50 mg by mouth twice a day for increased delirium/agitation. Otherwise, no other significant events overnight. All of the cultures of been negative with except of 1 blood culture that was obtained on 04/27/2021 and stock turner to be staph epidermidis. She is on Diflucan for oropharyngeal candidiasis Objective - Vital Signs Vital signs: Vital Signs Temp 97.4 F L 05/13/21 04:00 Pulse 56 L 05/13/21 07:00 Resp 21 05/13/21 07:00 BP 93/55 05/09/21 12:00 Pulse Ox 96 05/13/21 07:00 Intake & Output 05/12/21 05/13/21 05/13/21 18:59 06:59 18:59 Intake Total 3688.540 8655.135 43 Output Total 1625 500 45 Balance -373.835 599.135 -2 Weight 106.9 kg Intake: IV 276 253 23 Pressure Bag 36 33 3 Sodium Chloride 0.9% 1, 240 220 20 000 ml @ 20 mls/hr IV . Q24H [facility] Rx#:[id number] Intake, IV Titration 585.165 536.135 Amount Dexmedetomidine/0.9% NaCl 251.107 300 (Pmx) 400 mcg In Empty Bag 1 bag @ 0.2 MCG/KG/HR 5.38 mls/hr IV .[id number] [facility] Rx#:[id number] fentaNYL (PF) 2,500 mcg 239.273 236.135 In Sodium Chloride 0.9% 200 ml @ 0.5 MCG/KG/HR 5. 23 mls/hr IV .Q24H [facility] Rx #:[id number] propofoL 1,000 mg In 94.785 Empty Bag 1 bag @ Titrate IV .Q0M [facility] Rx#: [id number] Tube Feeding 240 220 20 Other 150 90 Output: Urine 1625 500 45 Other: Voiding Method Indwelling Catheter Indwelling Catheter ABP, PAP, CO, CI - Last Documented Arterial Blood Pressure 127/64 - Exam Patient is intubated on a mechanical ventilator. She is sedated , calm and comfortable, sluggishly reactive and responsive, currently on accommodation of fentanyl and Precedex. She has a Shiley #[address] for now. Head exam was generally normal. There was no scleral icterus or corneal arcus. Mucous membranes were moist. Neck was supple and without jugular venous distension, thyromegaly, or carotid bruits. Carotids were easily palpable bilaterally. There was no adenopathy. The patient has a tracheostomy tube Shiley #8 Lungs sounds are diminished in the patient's crackles in the mid and lower lung field bilaterally Cardiac exam revealed the PMI to be normally situated and sized. The rhythm was regular and no extrasystoles were noted during several minutes of auscultation. The first and second heart sounds were normal and physiologic splitting of the second heart sound was noted. There were no murmurs, rubs, clicks, or gallops. Abdominal exam revealed normal bowel sounds. The abdomen was soft, non-tender, and without masses, organomegaly, or appreciable enlargement of the abdominal aorta. The patient also has a active in place. Examination of the extremities revealed easily palpable radial, femoral and pedal pulses. There was no cyanosis, clubbing or edema. Examination of the skin revealed no evidence of significant rashes, suspicious appearing nevi or other concerning lesions. Neurologically, the patient is sedated . Pupils are equal and reactive to light. - Labs CBC & Chem 7: 05/13/21 04:02 05/13/21 04:02 Labs: Abnormal Lab Results - Last 24 Hours (Table) 05/12/21 05/12/21 05/13/21 Range/Units 17:40 23:11 04:02 WBC 12.0 H (3.8-10.6) k/uL RBC 3.68 L (3.80-5.40) m/uL Neutrophils # 8.9 H (1.3-7.7) k/uL ABG pCO2 (35-45) mmHg ABG HCO3 (21-25) mmol/L ABG Total CO2 (19-24) mmol/L ABG O2 Saturation (94-97) % Creatinine (0.52-1.04) mg/dL Glucose (74-99) mg/dL POC Glucose (mg/dL) 104 H 105 H (75-99) mg/dL ALT (4-34) U/L Total Protein (6.3-8.2) g/dL Albumin (3.5-5.0) g/dL 05/13/21 05/13/21 Range/Units 04:02 05:16 WBC (3.8-10.6) k/uL RBC (3.80-5.40) m/uL Neutrophils # (1.3-7.7) k/uL ABG pCO2 46 H (35-45) mmHg ABG HCO3 32 H (21-25) mmol/L ABG Total CO2 33 H (19-24) mmol/L ABG O2 Saturation 97.4 H (94-97) % Creatinine 0.42 L (0.52-1.04) mg/dL Glucose 110 H (74-99) mg/dL POC Glucose (mg/dL) (75-99) mg/dL ALT 49 H (4-34) U/L Total Protein 6.1 L (6.3-8.2) g/dL Albumin 2.7 L (3.5-5.0) g/dL Assessment and Plan Plan: 1 acute hypoxic respiratory failure secondary to COVID 19 pneumonia. Not been vaccinated for COVID 19. The patient has bilateral pulmonary infiltrates due to progression of her COVID 19 infection. She was originally symptomatic on 04/11/2021. She was diagnosed having COVID 19 infection on 04/13/2021 and the patient had a brief hospitalization and the patient was discharged home on 04/18/2021 after being treated as an inpatient basis. She presented back with acute hypoxic respiratory failure with signs of ARDS. The patient progressed very quickly and she was brought into the intensive care unit and she was intubated on 04/27/2021 and diagnosed PE on therapeutic dose of Lovenox regarding a possible filling defect in the right lower lobe pulmonary artery branch. The patient also has a DVT in her left popliteal vein. The patient is also post-tracheostomy tube insertion on 05/10/2021 and the patient has a #[address] trache[address] tube in place. She is currently on a PEEP of 12 with a pr essure control mode of mechanical ventilation. She is off paralytics patient is still sedated with a combination of Precedex and fentanyl. 2 acute hypoxic respiratory failure secondary to above 3 acute right lower lobe pulmonary embolism secondary to Covid 19 infection. the patient is currently on therapeutic dose of Lovenox. patient also has a left lower extremity DVT 4 history of hypothyroidism 5 history of marijuana smoking 6 enteral feeding for nutritional support via PEG tube Plan Keep the patient sedated Change the PEEP down to 10. Keep the rest of the settings unchanged. Continue ventilator support Continue Decadron Continue Lovenox therapeutic doses Continue vitamin C and vitamin D and zinc supplements Obtain follow-up chest x-ray Continue enteral feeding for nutritional support Gradually wean off the fentanyl drip We'll continue to follow. Condition is still critical. Evaluation was done more than 30 minutes. The plan is to gradually wean off the PEEP and gradually reduce the sedation for now for any improvement level of alertness. Rest of the treatment will be kept unchanged for now. We'll continue to follow. Condition is still critical. Time with Patient: Greater than 30
[2021-05-13] MEDS: ZINC SULFATE 220 MG CAP PO SCH (09:07)
[2021-05-13] MEDS: ASCORBIC ACID 500 MG TAB PO SCH (09:07)
[2021-05-13] MEDS: ENOXAPARIN 100 MG/ML SYRINGE SQ SCH ×2 (09:08→21:17)
[2021-05-13] MEDS: FLUCONAZOLE 100 MG TAB PO SCH ×2 (09:08→21:17)
[2021-05-13] MEDS: CHOLECALCIFEROL 125 MCG (5000 IU) TABLET PO SCH (09:08)
[2021-05-13] MEDS: QUEtiapine 50 MG TAB PO SCH ×2 (09:09→21:17)
[2021-05-13] MEDS: bisacodyL 10 MG SUPP RECTAL SCH (09:26)
[2021-05-13] MEDS: CHLORHEXIDINE GLUCONATE 15 ML CUP MUCOUS MEM SCH ×2 (09:37→21:17)
[2021-05-13] MEDS: DEXAMETHASONE SOD PHOSPHATE 10 MG/ML 1 ML VIAL IVP SCH (09:37)
[2021-05-13] MEDS: PANTOPRAZOLE 40 MG/10 ML VIAL IVP SCH (09:37)
[2021-05-13 11:35] LABS: Glucose,Whole Blood 120 mg/dL (75-99)
--- NOTE | 2021-05-13 15:36 | P.PN ---
Subjective Progress Note Date: 05/13/21 Principal diagnosis: Respiratory failure Patient remains on the ventilator however patient is awake and able to answer questions appropriately at this time. FiO2 40% with 10 of PEEP. States she is tired. Denies pain. Son is at the bedside. Objective - Vital Signs Vital signs: Vital Signs Temp 97.3 F L 05/13/21 12:00 Pulse 90 05/13/21 14:00 Resp 30 H 05/13/21 14:00 BP 93/55 05/09/21 12:00 Pulse Ox 92 L 05/13/21 14:00 Intake & Output 05/12/21 05/13/21 05/13/21 18:59 06:59 18:59 Intake Total 9405.117 1182.135 588.685 Output Total 1625 500 323 Balance -373.835 599.135 265.685 Weight 106.9 kg 106.9 kg Intake: IV 276 253 161 Pressure Bag 36 33 21 Sodium Chloride 0.9% 1, 240 220 140 000 ml @ 20 mls/hr IV . Q24H [facility] Rx#:[id number] Intake, IV Titration 585.165 536.135 357.685 Amount Dexmedetomidine/0.9% NaCl 251.107 300 200 (Pmx) 400 mcg In Empty Bag 1 bag @ 0.2 MCG/KG/HR 5.38 mls/hr IV .[id number] [facility] Rx#:[id number] fentaNYL (PF) 2,500 mcg 239.273 236.135 157.685 In Sodium Chloride 0.9% 200 ml @ 0.5 MCG/KG/HR 5. 23 mls/hr IV .Q24H [facility] Rx #:[id number] propofoL 1,000 mg In 94.785 Empty Bag 1 bag @ Titrate IV .Q0M [facility] Rx#: [id number] Tube Feeding 240 220 70 Other 150 90 Output: Urine 1625 500 323 Other: Voiding Method Indwelling Catheter Indwelling Catheter Indwelling Catheter ABP, PAP, CO, CI - Last Documented Arterial Blood Pressure 154/86 - Exam Tracheostomy site without evidence of infection or air leak Abdomen soft, nondistended, nontender, PEG tube in place - Labs CBC & Chem 7: 05/13/21 04:02 05/13/21 04:02 Labs: Abnormal Lab Results - Last 24 Hours (Table) 05/12/21 05/12/21 05/13/21 Range/Units 17:40 23:11 04:02 WBC 12.0 H (3.8-10.6) k/uL RBC 3.68 L (3.80-5.40) m/uL Neutrophils # 8.9 H (1.3-7.7) k/uL ABG pCO2 (35-45) mmHg ABG HCO3 (21-25) mmol/L ABG Total CO2 (19-24) mmol/L ABG O2 Saturation (94-97) % Creatinine (0.52-1.04) mg/dL Glucose (74-99) mg/dL POC Glucose (mg/dL) 104 H 105 H (75-99) mg/dL ALT (4-34) U/L Total Protein (6.3-8.2) g/dL Albumin (3.5-5.0) g/dL 05/13/21 05/13/21 05/13/21 Range/Units 04:02 05:16 11:34 WBC (3.8-10.6) k/uL RBC (3.80-5.40) m/uL Neutrophils # (1.3-7.7) k/uL ABG pCO2 46 H (35-45) mmHg ABG HCO3 32 H (21-25) mmol/L ABG Total CO2 33 H (19-24) mmol/L ABG O2 Saturation 97.4 H (94-97) % Creatinine 0.42 L (0.52-1.04) mg/dL Glucose 110 H (74-99) mg/dL POC Glucose (mg/dL) 120 H (75-99) mg/dL ALT 49 H (4-34) U/L Total Protein 6.1 L (6.3-8.2) g/dL Albumin 2.7 L (3.5-5.0) g/dL Assessment and Plan (1) COVID-19 Narrative/Plan: Patient seems to be slowly improving. Continue weaning ventilation and weaning from the ventilator at this time. Continue tube feeds at goal. We'll follow. Current Visit: Yes Status: Acute Code(s): U07.1 - COVID-19 SNOMED Code(s): 061775145
--- NOTE | 2021-05-13 16:27 | PN ---
PROGRESS NOTE DATE OF SERVICE: 05/10/2021 CHIEF COMPLAINT: COVID pneumonia and acute respiratory distress syndrome. HISTORY OF PRESENT ILLNESS: This lady remains relatively stable. There has been essentially no change in her pulmonary status including x-ray. She has undergone tracheostomy and PEG tube placement. PHYSICAL EXAMINATION: Physical exam is unchanged except for the presence of the tracheostomy and PEG tube. Breath sounds are heard bilaterally on the ventilator and she is in sinus rhythm. IMPRESSION: COVID pneumonia with adult respiratory distress syndrome. PLAN: She continues to be on supportive care. Attempt to transfer her to another facility at the family's request was denied by insurance. MMODL / IJN: [id number] /
[2021-05-13 17:33] LABS: Glucose,Whole Blood 123 mg/dL (75-99)
[2021-05-13] MEDS: SODIUM CHLORIDE 0.9% 500 ML 500 ML IV SCH (17:44)
--- NOTE | 2021-05-13 18:16 | PN ---
PROGRESS NOTE DATE OF SERVICE: 05/13/2021 CHIEF COMPLAINT: COVID pneumonia and respiratory failure. HISTORY OF PRESENT ILLNESS: There has been no significant change in this lady's condition. X-rays are about the same and she continues on the ventilator. PHYSICAL EXAM: Hydration is good and color is normal. Chest demonstrates good breath sounds bilaterally and cardiac exam reveals sinus rhythm. IMPRESSION: COVID pneumonia with respiratory distress syndrome. PLAN: No change in her condition at this time. Her care will continue at this hospital at least for the time being. MMODL / IJN: [id number] /
--- NOTE | 2021-05-13 18:52 | PN ---
PROGRESS NOTE DATE OF SERVICE: 05/12/2021 CHIEF COMPLAINT: COVID pneumonia with respiratory failure. HISTORY OF PRESENT ILLNESS: This lady is about the same. There have been no problems with her tracheostomy. PHYSICAL EXAM: Hydration is good. Her vital signs are normal. Cardiac exam demonstrates sinus rhythm. IMPRESSION: 1. Severe COVID pneumonia. 2. Adult respiratory distress syndrome. 3. History of pulmonary embolism in the right lower lobe. PLAN: No change in her management. Continue supportive efforts. Prognosis remains poor. MMODL / IJN: [id number] /
--- NOTE | 2021-05-13 18:58 | PN ---
PROGRESS NOTE DATE OF SERVICE: 05/11/2021 in ICU. CHIEF COMPLAINT: Pneumonitis and COVID-19. HISTORY OF PRESENT ILLNESS: This lady remains fairly stable, but not improved. PHYSICAL EXAM: Tracheostomy is in place. Chest demonstrates occasional rhonchi and scattered rales. Remainder of the exam is unchanged. IMPRESSION: COVID pneumonia with respiratory distress syndrome and history of pulmonary embolism. PLAN: No change in supportive management and care. MMODL / IJN: [id number] /
--- NOTE | 2021-05-13 22:03 | P.PN ---
Subjective Progress Note Date: 05/13/21 Principal diagnosis: Pneumonia and bacteremia Interval history : Patient is a 46-year-old -[place] female with admission diagnoses of Acute COVID-19 pneumonia subsequently admission to the hospital with worsening respiratory status has been diagnosed with a DVT and PE. The patient is status post trach and PEG tube placement as of 05/10/2021 On today's evaluation that is 05/13/2021, The patient is afebrile today, the patient is hemodynamically stable not requiring any pressor support , the patient FiO2 is stable at 40 %, no purulent secretion through the ET has been reported by the nursing staff, patient has been tolerating tube feeds and no diarrhea has been reported, patient is slowly waking up and following some commands Objective - Vital Signs Vital signs: Vital Signs Temp 97.3 F L 05/13/21 12:00 Pulse 73 05/13/21 18:00 Resp 28 H 05/13/21 18:00 BP 93/55 05/09/21 12:00 Pulse Ox 97 05/13/21 18:00 Intake & Output 05/13/21 05/13/21 05/14/21 06:59 18:59 06:59 Intake Total 1099.135 856.685 90.108 Output Total 500 653 Balance 599.135 203.685 90.108 Weight 106.9 kg 106.9 kg Intake: IV 253 299 Pressure Bag 33 39 Sodium Chloride 0.9% 1, 220 260 000 ml @ 20 mls/hr IV . Q24H [facility] Rx#:[id number] Intake, IV Titration 536.135 457.685 90.108 Amount Dexmedetomidine/0.9% NaCl 300 300 90.108 (Pmx) 400 mcg In Empty Bag 1 bag @ 0.2 MCG/KG/HR 5.38 mls/hr IV .[id number] [facility] Rx#:[id number] fentaNYL (PF) 2,500 mcg 236.135 157.685 In Sodium Chloride 0.9% 200 ml @ 0.5 MCG/KG/HR 5. 23 mls/hr IV .Q24H [facility] Rx #:[id number] Tube Feeding 220 100 Other 90 Output: Urine 500 653 Other: Voiding Method Indwelling Catheter Indwelling Catheter ABP, PAP, CO, CI - Last Documented Arterial Blood Pressure 147/79 - Exam GENERAL DESCRIPTION: Middle-aged female intubated on the vent RESPIRATORY SYSTEM: Unlabored breathing , decreased breath sounds at bases, no wheeze HEART: S1 S2 regular rate and rhythm ,no loud murmurs ABDOMEN: Soft , no tenderness EXTREMITIES: No edema feet - Labs CBC & Chem 7: 05/13/21 04:02 05/13/21 04:02 Labs: Abnormal Lab Results - Last 24 Hours (Table) 05/12/21 05/13/21 05/13/21 Range/Units 23:11 04:02 04:02 WBC 12.0 H (3.8-10.6) k/uL RBC 3.68 L (3.80-5.40) m/uL Neutrophils # 8.9 H (1.3-7.7) k/uL ABG pCO2 (35-45) mmHg ABG HCO3 (21-25) mmol/L ABG Total CO2 (19-24) mmol/L ABG O2 Saturation (94-97) % Creatinine 0.42 L (0.52-1.04) mg/dL Glucose 110 H (74-99) mg/dL POC Glucose (mg/dL) 105 H (75-99) mg/dL ALT 49 H (4-34) U/L Total Protein 6.1 L (6.3-8.2) g/dL Albumin 2.7 L (3.5-5.0) g/dL 05/13/21 05/13/21 05/13/21 Range/Units 05:16 11:34 17:32 WBC (3.8-10.6) k/uL RBC (3.80-5.40) m/uL Neutrophils # (1.3-7.7) k/uL ABG pCO2 46 H (35-45) mmHg ABG HCO3 32 H (21-25) mmol/L ABG Total CO2 33 H (19-24) mmol/L ABG O2 Saturation 97.4 H (94-97) % Creatinine (0.52-1.04) mg/dL Glucose (74-99) mg/dL POC Glucose (mg/dL) 120 H 123 H (75-99) mg/dL ALT (4-34) U/L Total Protein (6.3-8.2) g/dL Albumin (3.5-5.0) g/dL Assessment and Plan (1) Positive blood culture Current Visit: Yes Status: Acute Code(s): R78.81 - BACTEREMIA SNOMED Code(s): 030000124 (2) COVID-19 Current Visit: Yes Status: Acute Code(s): U07.1 - COVID-19 SNOMED Code(s): 401397224 Plan: 1-patient with a positive blood culture which has been finalized and staph epi likely skin contaminant, Repeat blood culture has been negative so far, no need for vancomycin 2-acute respiratory failure which is multifactorial possible component of pneumonia, Sputum has been usual respiratory pat White count is normal and the patient has completed course of cefepime is currently being monitor closely off antibiotic therapy, son at the bedside questions were answered Time with Patient: Less than 30
[2021-05-13 23:56] LABS: Glucose,Whole Blood 107 mg/dL (75-99)
[2021-05-14] MEDS: INSULIN ASPART (NovoLOG) 100 UNIT/ML VIAL SQ SCH ×4 (00:19→17:55)
[2021-05-14 04:52] LABS: Glucose,Whole Blood 112 mg/dL (75-99)
[2021-05-14 05:09] LABS: HCT 34.5 % (34.0-46.0); MCH 30.8 pg (25.0-35.0); MCHC 31.9 g/dL (31.0-37.0); MCV 96.7 fL (80.0-100.0); Platelet Count 294 k/uL (150-450); RBC 3.57 m/uL (3.80-5.40); RDW 14.1 % (11.5-15.5); WBC 10.2 k/uL (3.8-10.6)
[2021-05-14] MEDS: DEXMEDETOMIDINE/0.9% NACL(PMX) 400 MCG in EMPTY BAG 1 BAG IV SCH ×6 (05:27→23:37)
[2021-05-14 05:30] LABS: African American GFR (CKD) >90 (>60 ml/min/1.73 sqM); Anion Gap 3 mmol/L; Blood Urea Nitrogen 11 mg/dL (7-17); Calcium 8.6 mg/dL (8.4-10.2); Carbon Dioxide 29 mmol/L (22-30); Chloride 105 mmol/L (98-107); Glucose 119 mg/dL (74-99); Non-African American GFR(CKD) >90 (>60 ml/min/1.73 sqM); Potassium 3.4 mmol/L (3.5-5.1); Sodium 137 mmol/L (137-145)
[2021-05-14 05:43] LABS: ABG Base Excess 7.9 mmol/L; ABG HCO3 31 mmol/L (21-25); ABG Oxygen Saturation 94.7 % (94-97); ABG PCO2 42 mmHg (35-45); ABG PH 7.48 (7.35-7.45); ABG PO2 68 mmHg (83-108); ABG TCO2 33 mmol/L (19-24); Allen Test Performed? Yes
[2021-05-14] MEDS: LEVOTHYROXINE 112 MCG TAB PO SCH (07:16)
[2021-05-14] MEDS: POTASSIUM BICARBONATE/CIT AC 20 MEQ TABLET.EFF NG-TUBE SCH ×2 (07:16→08:36)
[2021-05-14] MEDS ORDERED: FUROSEMIDE 10 MG/ML 4 ML VIAL IV STA (07:20)
--- NOTE | 2021-05-14 07:20 | P.PN ---
Subjective Progress Note Date: 05/14/21 45-year-old -[place] female patient who is currently in the hospital for Covid 19 related pneumonia. The patient was intubated and placed on mechanical ventilator due to extensive pneumonia/ARDS. Subsequently, the patient was given a tracheostomy tube on 05/10/2021. This morning, the patient is on a combination of sedation. The patient is on Precedex running at 1 mcg/kg per minute and the patient is also on fentanyl at 11.5 mcg/kg/h. The patient is off paralytics. She is responsive. She follows some simple commands. Her ventilator settings are currently an assist-control mode at the rate of 28, pressure control of 20, inspiratory time of 0.9 seconds, PEEP of 12 and FiO2 of 40%. Peak airway pressure is 33. The chest x-ray is showing diffuse bilateral pulmonary infiltrates. The tracheostomy tube Is high in the trachea. The patient has a PICC line in the right upper extremity. Meanwhile, the blood gases from today shows a pH of 7.44 with a pCO2 of 46 and pO2 of 87 and this was done and FiO2 of 40%. The patient remains on Decadron 6 mg IV every 24 hours. The patient is also on Lovenox 100 mg subcu twice a day as the patient was found to have a right lower extremity DVT on 04/28/2021 and since then the patient has been on therapeutic dose of Lovenox for note that she also had pulmonary embolism as evident on the CT angiogram that was obtained on 04/24/2021. CT an giogram showed right lower lobe pulmonary artery branch segmental filling defects. On today's evaluation, her white cell thousand 12 with a hemoglobin of 11.4 and a platelet count of 305. Sodium is at 138 with a potassium level of 3.8, chloride is 106 bicarb is at 30 with a BUN of 10 and a creatinine of 0.4. The patient is receiving enteral feeding for insurance support. She is currently on vital high protein at a rate of 20 mL an hour. She is on NovoLog sliding scale coverage. She is on Synthroid 112 g on a daily basis. She is also receiving Seroquel 50 mg by mouth twice a day for increased delirium/agitation. Otherwise, no other significant events overnight. All of the cultures of been negative with except of 1 blood culture that was obtained on 04/27/2021 and return checker to be staph epidermidis. She is on Diflucan for oropharyngeal candidiasis 05/14/2021, I'm seeing the patient for a follow-up. The patient is arousable and awake and she's communicating. He is unhappy and slightly anxious. She is on Precedex running at 0.7 mcg/kg/m and she is also on fentanyl running at 1 mcg/kg/h. She remains on a mechanical ventilator and she is quite comfortable at this point in time. The morning ventilator settings include an assist- control at the rate of 28 pressure control mode with a pressure control of 20, PEEP of 8, FiO2 of 40% with an inspiratory time of 0.9. The blood gases from this morning shows a pH of 7.48 with a pCO2 of 42 and pO2 of 68. Chest x-ray from this morning shows no major interval change. Tracheostomy tube remains in a good location and the patient has a #[address] tube in place[address] No significant orotracheal secretions at this point in time. The patient remains hemodynamically stable. Pulse ox is above 88%. Cardiac rhythm is sinus. She has a PEG tube and she is receiving enteral feeding for nutritional support and the patient is currently on vital high protein at the rate of 39 mL an hour. She is stooling. She has a PICC line in her right upper extremity. In terms of her Covid 19 therapy, the patient is currently on Decadron 6 g IV every 24 hours. She remains on therapeutic dose of Lovenox 100 mg subcu every 12 hours as the patient was found to have a right lower extremity DVT on and subsequently there was also pulmonary embolism involving the right lower lobe pulmonary artery branches with segmental filling defects. Otherwise, she is doing well. The white cell count is at 10.2 with a hemoglobin of 11. The BUN is at 11 with a creatinine of 0.4 and sodium level is at 137. Blood sugar is at 119. She remains on Diflucan for oropharyngeal candidiasis. No other positive blood cultures. No other significant events overnight. Objective - Vital Signs Vital signs: Vital Signs Temp 98.8 F 05/14/21 04:00 Pulse 84 05/14/21 06:00 Resp 28 H 05/14/21 06:00 BP 93/55 05/13/21 19:00 Pulse Ox 96 05/14/21 06:00 Intake & Output 05/13/21 05/14/21 05/14/21 18:59 06:59 18:59 Intake Total 842.749 3929.462 Output Total 653 790 Balance 203.685 252.462 Weight 106.9 kg 108.3 kg Intake: IV 299 213 Pressure Bag 39 33 Sodium Chloride 0.9% 1, 260 180 000 ml @ 20 mls/hr IV . Q24H [facility] Rx#:[id number] Intake, IV Titration 457.685 359.462 Amount Dexmedetomidine/0.9% NaCl 300 268.111 (Pmx) 400 mcg In Empty Bag 1 bag @ 0.2 MCG/KG/HR 5.38 mls/hr IV .[id number] [facility] Rx#:[id number] fentaNYL (PF) 2,500 mcg 157.685 91.351 In Sodium Chloride 0.9% 200 ml @ 0.5 MCG/KG/HR 5. 23 mls/hr IV .Q24H [facility] Rx #:[id number] Tube Feeding 100 340 Other 130 Output: Urine 653 790 Other: Voiding Method Indwelling Catheter Indwelling Catheter ABP, PAP, CO, CI - Last Documented Arterial Blood Pressure 134/71 - Exam Patient is intubated on a mechanical ventilator. She is sedated , calm and comfortable, sluggishly reactive and responsive, currently on accommodation of fentanyl and Precedex. She has a Shiley #[address] for now. Head exam was generally normal. There was no scleral icterus or corneal arcus. Mucous membranes were moist. Neck was supple and without jugular venous distension, thyromegaly, or carotid bruits. Carotids were easily palpable bilaterally. There was no adenopathy. The patient has a tracheostomy tube Shiley #8 Lungs sounds are diminished in the patient's crackles in the mid and lower lung field bilaterally Cardiac exam revealed the PMI to be normally situated and sized. The rhythm was regular and no extrasystoles were noted during several minutes of auscultation. The first and second heart sounds were normal and physiologic splitting of the second heart sound was noted. There were no murmurs, rubs, clicks, or gallops. Abdominal exam revealed normal bowel sounds. The abdomen was soft, non-tender, and without masses, organomegaly, or appreciable enlargement of the abdominal aorta. The patient also has a active in place. Examination of the extremities revealed easily palpable radial, femoral and pedal pulses. There was no cyanosis, clubbing or edema. Examination of the skin revealed no evidence of significant rashes, suspicious appearing nevi or other concerning lesions. Neurologically, the patient is sedated . Pupils are equal and reactive to light. - Labs CBC & Chem 7: 05/14/21 05:00 05/14/21 05:00 Labs: Abnormal Lab Results - Last 24 Hours (Table) 05/13/21 05/13/21 05/13/21 Range/Units 11:34 17:32 23:53 RBC (3.80-5.40) m/uL Hgb (11.4-16.0) gm/dL ABG pH (7.35-7.45) ABG pO2 (83-108) mmHg ABG HCO3 (21-25) mmol/L ABG Total CO2 (19-24) mmol/L Potassium (3.5-5.1) mmol/L Creatinine (0.52-1.04) mg/dL Glucose (74-99) mg/dL POC Glucose (mg/dL) 120 H 123 H 107 H (75-99) mg/dL 05/14/21 05/14/21 05/14/21 Range/Units 04:50 05:00 05:00 RBC 3.57 L (3.80-5.40) m/uL Hgb 11.0 L (11.4-16.0) gm/dL ABG pH (7.35-7.45) ABG pO2 (83-108) mmHg ABG HCO3 (21-25) mmol/L ABG Total CO2 (19-24) mmol/L Potassium 3.4 L (3.5-5.1) mmol/L Creatinine 0.40 L (0.52-1.04) mg/dL Glucose 119 H (74-99) mg/dL POC Glucose (mg/dL) 112 H (75-99) mg/dL 05/14/21 Range/Units 05:40 RBC (3.80-5.40) m/uL Hgb (11.4-16.0) gm/dL ABG pH 7.48 H (7.35-7.45) ABG pO2 68 L (83-108) mmHg ABG HCO3 31 H (21-25) mmol/L ABG Total CO2 33 H (19-24) mmol/L Potassium (3.5-5.1) mmol/L Creatinine (0.52-1.04) mg/dL Glucose (74-99) mg/dL POC Glucose (mg/dL) (75-99) mg/dL Assessment and Plan Plan: 1 acute hypoxic respiratory failure secondary to COVID 19 pneumonia. Not been vaccinated for COVID 19. The patient has bilateral pulmonary infiltrates due to progression of her COVID 19 infection. She was originally symptomatic on 04/11/2021. She was diagnosed having COVID 19 infection on 04/13/2021 and the patient had a brief hospitalization and the patient was discharged home on 04/18/2021 after being treated as an inpatient basis. She presented back with acute hypoxic respiratory failure with signs of ARDS. The patient progressed very quickly and she was brought into the intensive care unit and she was intubated on 04/27/2021 and diagnosed PE on therapeutic dose of Lovenox regarding a possible filling defect in the right lower lobe pulmonary artery branch. The patient also has a DVT in her left popliteal vein. The patient is also post-tracheostomy tube insertion on 05/10/2021 and the patient has a #[address] trache[address] tube in place. I reviewed the chest x-ray and a blood gas. The patient continues to have diffuse bilateral pulmonary infiltrates. The blood gases showing a mild component of alkalosis. Based on that, necessary ventilator changes will be done. The patient remains hemodynamically stable. 2 acute hypoxic respiratory failure secondary to above 3 acute right lower lobe pulmonary embolism secondary to Covid 19 infection. the patient is currently on therapeutic dose of Lovenox. patient also has a left lower extremity DVT 4 history of hypothyroidism 5 history of marijuana smoking 6 enteral feeding for nutritional support via PEG tube Plan Wean off fentanyl and keep the Precedex for now Change the ventilator. Pressure control of 16, rate of 26, keep the FiO2 at 40% with a PEEP of 8. Repeat the blood gases around noontime Continue Decadron Continue Lovenox therapeutic doses Continue vitamin C and vitamin D and zinc supplements Obtain follow-up chest x-ray Continue enteral feeding for nutritional support Gradually wean off the fentanyl drip, keep Precedex Give the patient dose of Lasix 40 mg IV push 1. Updated the yesterday. We'll continue to follow. Condition is still critical. Evaluation was done more than 30 minutes. The plan is to gradually wean off the PEEP and gradually reduce the sedation for now for any improvement level of alertness. Rest of the treatment will be kept unchanged for now. We'll continue to follow. Condition is still critical. Time with Patient: Greater than 30
[2021-05-14] MEDS: ALBUTEROL HFA INHALER INHALATION SCH ×4 (07:24→19:47)
--- NOTE | 2021-05-14 08:25 | XR ---
EXAMINATION TYPE: XR chest 1V portable DATE OF EXAM: 05/14/2021 COMPARISON: Chest x-ray 05/13/2021 HISTORY: Tracheostomy tube placement, Covid pneumonia TECHNIQUE: Single frontal view of the chest is obtained. FINDINGS: Bilateral airspace disease is present. Tracheostomy tube is overlying the tracheal air col umn. Right-sided PICC line shows the distal tip over the right atrium. No evident pneumothorax or ple ural effusion. Lung volumes are low. Cardiac mediastinal silhouette is stable. There are overlying le ads. IMPRESSION: Findings consistent with pneumonia, correlate for possible ARDS.
[2021-05-14] MEDS: CHLORHEXIDINE GLUCONATE 15 ML CUP MUCOUS MEM SCH ×2 (08:35→21:31)
[2021-05-14] MEDS: ASCORBIC ACID 500 MG TAB PO SCH (08:35)
[2021-05-14] MEDS: DEXAMETHASONE SOD PHOSPHATE 10 MG/ML 1 ML VIAL IVP SCH (08:35)
[2021-05-14] MEDS: PANTOPRAZOLE 40 MG/10 ML VIAL IVP SCH (08:35)
[2021-05-14] MEDS: ZINC SULFATE 220 MG CAP PO SCH (08:35)
[2021-05-14] MEDS: CHOLECALCIFEROL 125 MCG (5000 IU) TABLET PO SCH (08:36)
[2021-05-14] MEDS: ENOXAPARIN 100 MG/ML SYRINGE SQ SCH ×2 (08:36→21:30)
[2021-05-14] MEDS: FLUCONAZOLE 100 MG TAB PO SCH ×2 (08:36→21:30)
[2021-05-14] MEDS: QUEtiapine 50 MG TAB PO SCH ×2 (08:36→21:30)
[2021-05-14] MEDS: bisacodyL 10 MG SUPP RECTAL SCH (09:51)
[2021-05-14 11:40] LABS: Glucose,Whole Blood 133 mg/dL (75-99)
--- NOTE | 2021-05-14 11:42 | P.PN ---
Subjective Progress Note Date: 05/14/21 Principal diagnosis: Respiratory failure Patient remains on the ventilator however patient is awake and able to answer questions appropriately at this time. FiO2 40% with 10 of PEEP. States is communicating with family members at the bedside. Tolerating tube feeds at goal. Objective - Vital Signs Vital signs: Vital Signs Temp 100.0 F H 05/14/21 08:00 Pulse 108 H 05/14/21 11:00 Resp 11 L 05/14/21 11:00 BP 93/55 05/13/21 19:00 Pulse Ox 87 L 05/14/21 11:00 Intake & Output 05/13/21 05/14/21 05/14/21 18:59 06:59 18:59 Intake Total 904.377 1684.462 590.055 Output Total 653 790 225 Balance 203.685 252.462 365.055 Weight 106.9 kg 108.3 kg Intake: IV 299 213 69 Pressure Bag 39 33 9 Sodium Chloride 0.9% 1, 260 180 60 000 ml @ 20 mls/hr IV . Q24H [facility] Rx#:[id number] Intake, IV Titration 457.685 359.462 251.055 Amount Dexmedetomidine/0.9% NaCl 300 268.111 122.746 (Pmx) 400 mcg In Empty Bag 1 bag @ 0.2 MCG/KG/HR 5.38 mls/hr IV .[id number] [facility] Rx#:[id number] fentaNYL (PF) 2,500 mcg 157.685 91.351 128.309 In Sodium Chloride 0.9% 200 ml @ 0.5 MCG/KG/HR 5. 23 mls/hr IV .Q24H [facility] Rx #:[id number] Tube Feeding 100 340 150 Other 130 120 Output: Urine 653 790 225 Other: Voiding Method Indwelling Catheter Indwelling Catheter Indwelling Catheter ABP, PAP, CO, CI - Last Documented Arterial Blood Pressure 151/86 - Exam Tracheostomy site without evidence of infection or air leak Abdomen soft, nondistended, nontender, PEG tube in place - Labs CBC & Chem 7: 05/14/21 05:00 05/14/21 05:00 Labs: Abnormal Lab Results - Last 24 Hours (Table) 05/13/21 05/13/21 05/14/21 Range/Units 17:32 23:53 04:50 RBC (3.80-5.40) m/uL Hgb (11.4-16.0) gm/dL ABG pH (7.35-7.45) ABG pO2 (83-108) mmHg ABG HCO3 (21-25) mmol/L ABG Total CO2 (19-24) mmol/L Potassium (3.5-5.1) mmol/L Creatinine (0.52-1.04) mg/dL Glucose (74-99) mg/dL POC Glucose (mg/dL) 123 H 107 H 112 H (75-99) mg/dL 05/14/21 05/14/21 05/14/21 Range/Units 05:00 05:00 05:40 RBC 3.57 L (3.80-5.40) m/uL Hgb 11.0 L (11.4-16.0) gm/dL ABG pH 7.48 H (7.35-7.45) ABG pO2 68 L (83-108) mmHg ABG HCO3 31 H (21-25) mmol/L ABG Total CO2 33 H (19-24) mmol/L Potassium 3.4 L (3.5-5.1) mmol/L Creatinine 0.40 L (0.52-1.04) mg/dL Glucose 119 H (74-99) mg/dL POC Glucose (mg/dL) (75-99) mg/dL 05/14/21 Range/Units 11:38 RBC (3.80-5.40) m/uL Hgb (11.4-16.0) gm/dL ABG pH (7.35-7.45) ABG pO2 (83-108) mmHg ABG HCO3 (21-25) mmol/L ABG Total CO2 (19-24) mmol/L Potassium (3.5-5.1) mmol/L Creatinine (0.52-1.04) mg/dL Glucose (74-99) mg/dL POC Glucose (mg/dL) 133 H (75-99) mg/dL Assessment and Plan (1) COVID-19 Narrative/Plan: Patient doing well at this time. Continue ventilatory weaning. Continue tube feeds at goal. Will follow. Current Visit: Yes Status: Acute Code(s): U07.1 - COVID-19 SNOMED Code(s): 534731629
[2021-05-14] MEDS: SODIUM CHLORIDE 0.9% 500 ML 500 ML IV SCH (12:14)
[2021-05-14] MEDS ORDERED: HALOPERIDOL LACTATE 5 MG/ML 1 ML VIAL IVP ONE (12:38)
[2021-05-14] MEDS: fentaNYL (PF) 2,500 MCG in SODIUM CHLORIDE 0.9% 200 ML IV SCH (15:14)
[2021-05-14 17:48] LABS: Glucose,Whole Blood 127 mg/dL (75-99)
--- NOTE | 2021-05-14 19:55 | PN ---
PROGRESS NOTE DATE OF SERVICE: 05/14/2021. CHIEF COMPLAINT: COVID pneumonia and respiratory failure. HISTORY OF PRESENT ILLNESS: This lady is slowly waking up as sedation has been stopped. She is still on the ventilator. Vital signs are normal. She is extremely weak. It was felt that she could write some messages on a clipboard, but she is too weak. PHYSICAL EXAM: Her eyes are open. Pupils are equal and round and gaze is conjugate. Breath sounds are heard bilaterally. Cardiac exam is normal. IMPRESSION: COVID pneumonia with respiratory failure. PLAN: [place] physical and occupational therapies and continue to move forward. MMODL / IJN: [id number] /
--- NOTE | 2021-05-14 20:04 | PN ---
PROGRESS NOTE DATE OF SERVICE: 05/06/2021 CHIEF COMPLAINT: COVID pneumonia and respiratory failure. HISTORY OF PRESENT ILLNESS: This lady remains on the ventilator. There has been no significant change. Her vital signs normal, but her pulse ox is fluctuating, and chest x-ray does not look any better. PHYSICAL EXAM: Peripheral perfusion is good. Chest is fairly clear with diminished breath sounds. Cardiac exam is normal. IMPRESSION: COVID pneumonia with respiratory failure. PLAN: Continue with ventilator support and other attendant measures at this time. MMODL / IJN: [id number] /
--- NOTE | 2021-05-14 21:38 | P.PN ---
Subjective Progress Note Date: 05/14/21 Principal diagnosis: Pneumonia and bacteremia Interval history : Patient is a 46-year-old -[place] Citizen female with admission diagnoses of Acute COVID-19 pneumonia subsequently admission to the hospital with worsening respiratory status has been diagnosed with a DVT and PE. The patient is status post trach and PEG tube placement as of 05/10/2021 On today's evaluation that is 05/14/2021, The patient did have a low-grade fever 100 Fahrenheit this morning, the patient is hemodynamically stable not requiring any pressor support , the patient FiO2 is currently at 65 %, no p urulent secretion through the ET has been reported by the nursing staff, patient has been tolerating tube feeds and no diarrhea has been reported, patient did have improvement in her mentation and has been following simple commands Objective - Vital Signs Vital signs: Vital Signs Temp 99.6 F 05/14/21 21:00 Pulse 71 05/14/21 21:00 Resp 12 05/14/21 21:00 BP 93/55 05/14/21 21:00 Pulse Ox 99 05/14/21 21:00 Intake & Output 05/14/21 05/14/21 05/15/21 06:59 18:59 06:59 Intake Total 4311.501 3923.837 249 Output Total 790 2575 300 Balance 252.462 -1027.163 -51 Weight 108.3 kg Intake: IV 213 276 69 Pressure Bag 33 36 9 Sodium Chloride 0.9% 1, 180 240 60 000 ml @ 20 mls/hr IV . Q24H [facility] Rx#:[id number] Intake, IV Titration 359.462 551.837 Amount Dexmedetomidine/0.9% NaCl 268.111 359.461 (Pmx) 400 mcg In Empty Bag 1 bag @ 0.2 MCG/KG/HR 5.38 mls/hr IV .[id number] [facility] Rx#:[id number] fentaNYL (PF) 2,500 mcg 91.351 192.376 In Sodium Chloride 0.9% 200 ml @ 0.5 MCG/KG/HR 5. 23 mls/hr IV .Q24H [facility] Rx #:[id number] Tube Feeding 340 600 150 Other 130 120 30 Output: Urine 790 2575 300 Other: Voiding Method Indwelling Catheter Indwelling Catheter ABP, PAP, CO, CI - Last Documented Arterial Blood Pressure 120/72 - Exam GENERAL DESCRIPTION: Middle-aged female intubated on the vent RESPIRATORY SYSTEM: Unlabored breathing , decreased breath sounds at bases, no wheeze HEART: S1 S2 regular rate and rhythm ,no loud murmurs ABDOMEN: Soft , no tenderness EXTREMITIES: No edema feet - Labs CBC & Chem 7: 05/14/21 05:00 05/14/21 05:00 Labs: Abnormal Lab Results - Last 24 Hours (Table) 05/13/21 05/14/21 05/14/21 Range/Units 23:53 04:50 05:00 RBC 3.57 L (3.80-5.40) m/uL Hgb 11.0 L (11.4-16.0) gm/dL ABG pH (7.35-7.45) ABG pO2 (83-108) mmHg ABG HCO3 (21-25) mmol/L ABG Total CO2 (19-24) mmol/L Potassium (3.5-5.1) mmol/L Creatinine (0.52-1.04) mg/dL Glucose (74-99) mg/dL POC Glucose (mg/dL) 107 H 112 H (75-99) mg/dL 05/14/21 05/14/21 05/14/21 Range/Units 05:00 05:40 11:38 RBC (3.80-5.40) m/uL Hgb (11.4-16.0) gm/dL ABG pH 7.48 H (7.35-7.45) ABG pO2 68 L (83-108) mmHg ABG HCO3 31 H (21-25) mmol/L ABG Total CO2 33 H (19-24) mmol/L Potassium 3.4 L (3.5-5.1) mmol/L Creatinine 0.40 L (0.52-1.04) mg/dL Glucose 119 H (74-99) mg/dL POC Glucose (mg/dL) 133 H (75-99) mg/dL 05/14/21 Range/Units 17:46 RBC (3.80-5.40) m/uL Hgb (11.4-16.0) gm/dL ABG pH (7.35-7.45) ABG pO2 (83-108) mmHg ABG HCO3 (21-25) mmol/L ABG Total CO2 (19-24) mmol/L Potassium (3.5-5.1) mmol/L Creatinine (0.52-1.04) mg/dL Glucose (74-99) mg/dL POC Glucose (mg/dL) 127 H (75-99) mg/dL Assessment and Plan (1) Positive blood culture Current Visit: Yes Status: Acute Code(s): R78.81 - BACTEREMIA SNOMED Code(s): 828670208 (2) COVID-19 Current Visit: Yes Status: Acute Code(s): U07.1 - COVID-19 SNOMED Code(s): 228829561 Plan: 1-patient with a positive blood culture which has been finalized and staph epi likely skin contaminant, Repeat blood culture has been negative so far, patient is currently off vancomycin 2-acute respiratory failure which is multifactorial possible component of pneumonia, Sputum has been usual respiratory pat, patient has completed a course of IV cefepime, the patient White count remains to be normal and the patient will be monitor closely off antibiotic therapy, family at the bedside questions were answered Time with Patient: Less than 30
[2021-05-15 00:09] LABS: Glucose,Whole Blood 124 mg/dL (75-99)
[2021-05-15] MEDS: INSULIN ASPART (NovoLOG) 100 UNIT/ML VIAL SQ SCH ×4 (00:28→18:32)
[2021-05-15] MEDS: DEXMEDETOMIDINE/0.9% NACL(PMX) 400 MCG in EMPTY BAG 1 BAG IV SCH ×3 (04:30→17:00)
[2021-05-15 04:58] LABS: Basophils % (A) 0 %; Eosinophils # (A) 0.2 k/uL (0-0.7); Eosinophils % (A) 2 %; HCT 35.5 % (34.0-46.0); HGB 11.3 gm/dL (11.4-16.0); Lymphocytes # (A) 1.9 k/uL (1.0-4.8); Lymphocytes % (A) 18 %; MCHC 31.9 g/dL (31.0-37.0); MCV 97.1 fL (80.0-100.0); Monocytes # (A) 0.5 k/uL (0-1.0); Monocytes % (A) 5 %; Neutrophils # (A) 8.1 k/uL (1.3-7.7); Neutrophils % (A) 74 %; Platelet Count 283 k/uL (150-450); RBC 3.65 m/uL (3.80-5.40); RDW 14.1 % (11.5-15.5); WBC 10.9 k/uL (3.8-10.6)
[2021-05-15 05:35] LABS: African American GFR (CKD) >90 (>60 ml/min/1.73 sqM); Anion Gap 3 mmol/L; Blood Urea Nitrogen 12 mg/dL (7-17); Calcium 8.6 mg/dL (8.4-10.2); Carbon Dioxide 31 mmol/L (22-30); Chloride 102 mmol/L (98-107); Glucose 128 mg/dL (74-99); Non-African American GFR(CKD) >90 (>60 ml/min/1.73 sqM); Potassium 3.3 mmol/L (3.5-5.1); Sodium 136 mmol/L (137-145)
[2021-05-15 05:52] LABS: Glucose,Whole Blood 103 mg/dL (75-99)
[2021-05-15 05:57] LABS: ABG Base Excess 9.7 mmol/L; ABG HCO3 33 mmol/L (21-25); ABG PCO2 46 mmHg (35-45); ABG PH 7.47 (7.35-7.45); ABG PO2 114 mmHg (83-108); ABG TCO2 35 mmol/L (19-24); Allen Test Performed? Yes
[2021-05-15] MEDS: LEVOTHYROXINE 112 MCG TAB PO SCH (07:04)
[2021-05-15] MEDS: POTASSIUM BICARBONATE/CIT AC 20 MEQ TABLET.EFF NG-TUBE SCH ×2 (07:04→08:48)
[2021-05-15] MEDS: fentaNYL (PF) 2,500 MCG in SODIUM CHLORIDE 0.9% 200 ML IV SCH (07:20)
[2021-05-15] MEDS: ALBUTEROL HFA INHALER INHALATION SCH ×4 (07:35→20:01)
[2021-05-15] MEDS: CHLORHEXIDINE GLUCONATE 15 ML CUP MUCOUS MEM SCH ×2 (08:47→21:26)
[2021-05-15] MEDS: ASCORBIC ACID 500 MG TAB PO SCH (08:48)
[2021-05-15] MEDS: DEXAMETHASONE SOD PHOSPHATE 10 MG/ML 1 ML VIAL IVP SCH (08:48)
[2021-05-15] MEDS: PANTOPRAZOLE 40 MG/10 ML VIAL IVP SCH (08:48)
[2021-05-15] MEDS: bisacodyL 10 MG SUPP RECTAL SCH (08:48)
[2021-05-15] MEDS: ZINC SULFATE 220 MG CAP PO SCH (08:48)
[2021-05-15] MEDS: CHOLECALCIFEROL 125 MCG (5000 IU) TABLET PO SCH (08:48)
[2021-05-15] MEDS: ENOXAPARIN 100 MG/ML SYRINGE SQ SCH ×2 (08:56→21:27)
[2021-05-15] MEDS: QUEtiapine 50 MG TAB PO SCH ×2 (08:57→21:27)
[2021-05-15] MEDS: FLUCONAZOLE 100 MG TAB PO SCH ×2 (08:57→21:27)
[2021-05-15] MEDS ORDERED: FUROSEMIDE 10 MG/ML 4 ML VIAL IV STA (09:11)
--- NOTE | 2021-05-15 09:17 | P.PN ---
Subjective Progress Note Date: 05/15/21 45-year-old -[place] female patient who is currently in the hospital for Covid 19 related pneumonia. The patient was intubated and placed on mechanical ventilator due to extensive pneumonia/ARDS. Subsequently, the patient was given a tracheostomy tube on 05/10/2021. This morning, the patient is on a combination of sedation. The patient is on Precedex running at 1 mcg/kg per minute and the patient is also on fentanyl at 11.5 mcg/kg/h. The patient is off paralytics. She is responsive. She follows some simple commands. Her ventilator settings are currently an assist-control mode at the rate of 28, pressure control of 20, inspiratory time of 0.9 seconds, PEEP of 12 and FiO2 of 40%. Peak airway pressure is 33. The chest x-ray is showing diffuse bilateral pulmonary infiltrates. The tracheostomy tube Is high in the trachea. The patient has a PICC line in the right upper extremity. Meanwhile, the blood gases from today shows a pH of 7.44 with a pCO2 of 46 and pO2 of 87 and this was done and FiO2 of 40%. The patient remains on Decadron 6 mg IV every 24 hours. The patient is also on Lovenox 100 mg subcu twice a day as the patient was found to have a right lower extremity DVT on 04/28/2021 and since then the patient has been on therapeutic dose of Lovenox for note that she also had pulmonary embolism as evident on the CT angiogram that was obtained on 04/24/2021. CT an giogram showed right lower lobe pulmonary artery branch segmental filling defects. On today's evaluation, her white cell thousand 12 with a hemoglobin of 11.4 and a platelet count of 305. Sodium is at 138 with a potassium level of 3.8, chloride is 106 bicarb is at 30 with a BUN of 10 and a creatinine of 0.4. The patient is receiving enteral feeding for insurance support. She is currently on vital high protein at a rate of 20 mL an hour. She is on NovoLog sliding scale coverage. She is on Synthroid 112 g on a daily basis. She is also receiving Seroquel 50 mg by mouth twice a day for increased delirium/agitation. Otherwise, no other significant events overnight. All of the cultures of been negative with except of 1 blood culture that was obtained on 04/27/2021 and returning officer to be staph epidermidis. She is on Diflucan for oropharyngeal candidiasis 05/14/2021, I'm seeing the patient for a follow-up. The patient is arousable and awake and she's communicating. He is unhappy and slightly anxious. She is on Precedex running at 0.7 mcg/kg/m and she is also on fentanyl running at 1 mcg/kg/h. She remains on a mechanical ventilator and she is quite comfortable at this point in time. The morning ventilator settings include an assist- control at the rate of 28 pressure control mode with a pressure control of 20, PEEP of 8, FiO2 of 40% with an inspiratory time of 0.9. The blood gases from this morning shows a pH of 7.48 with a pCO2 of 42 and pO2 of 68. Chest x-ray from this morning shows no major interval change. Tracheostomy tube remains in a good location and the patient has a #[address] No significant orotracheal secretions at this point in time. The patient remains hemodynamically stable. Pulse ox is above 88%. Cardiac rhythm is sinus. She has a PEG tube and she is receiving enteral feeding for nutritional support and the patient is currently on vital high protein at the rate of 39 mL an hour. She is stooling. She has a PICC line in her right upper extremity. In terms of her Covid 19 therapy, the patient is currently on Decadron 6 g IV every 24 hours. She remains on therapeutic dose of Lovenox 100 mg subcu every 12 hours as the patient was found to have a right lower extremity DVT on and subsequently there was also pulmonary embolism involving the right lower lobe pulmonary artery branches with segmental filling defects. Otherwise, she is doing well. The white cell count is at 10.2 with a hemoglobin of 11. The BUN is at 11 with a creatinine of 0.4 and sodium level is at 137. Blood sugar is at 119. She remains on Diflucan for oropharyngeal candidiasis. No other positive blood cultures. No other significant events overnight. 05/15/2021, the patient is awake. She remains on Precedex running at 1 mcg/kg/m and the patient is also on fentanyl at 1 mcg/kg/h. Despite all this, she is wide awake. She is responsive. She follows commands. She will go 4 extremities without any limitation. Her breathing is nonlabored. She was on a pressure control mode of mechanical ventilation and earlier this morning, she wasn't a pressure control of 16, PEEP of 8, FiO2 of 50% and a rate of 26. The chest x-ray was unchanged and showed diffuse bilateral pulmonary infiltrates and the Shiley tracheostomy she was sitting very high trachea. Nevertheless, the patient was returning her volumes. The chest x-ray still showing diffuse infiltration. Her oxidation is improved and the patient's most recent blood gas showed a pH of 7.47 with a pCO2 of 46 and pO2 114 and this was done and FiO2 of 50%. Her white cell count is at 10.9 with a hemoglobin of 11.3. Sodium is at 136 with a potassium level of 3.3. BUN is at 12 with a creatinine of 0.3. Glucose is 103. The patient remains on Decadron 6 mg IV every 24 hours. She remains on therapeutic doses of Lovenox 1 mg subcu every 12 hours as the patient has a right lower extremity DVT that was diagnosed on 04/18/[address] angiogram also showed filling defects in the right lower lobe pulmonary artery branches. As such, the patient has been maintained on therapeutic doses of Lovenox. She is on Diflucan. She was started on Diflucan on 05/11/2021 by infectious disease. She remains on IV Protonix. She is receiving enteral feeding for nutritional support. In terms of her Covid 19 isolation, the patient was taken off of drop with isolation today. All of the cultures of been negative. The patient is awaiting although she is showing daily progress. I am giving daily basis to the family. I met the mother yesterday at the bedside. N o other significant events. No open wounds. Objective - Vital Signs Vital signs: Vital Signs Temp 99.0 F 05/15/21 04:00 Pulse 96 05/15/21 07:00 Resp 15 05/15/21 07:00 BP 93/55 05/14/21 21:00 Pulse Ox 98 05/15/21 07:00 Intake & Output 05/14/21 05/15/21 05/15/21 18:59 06:59 18:59 Intake Total 1521.975 7727.154 202.337 Output Total 2575 830 100 Balance -1027.163 544.154 102.337 Weight 106.8 kg Intake: IV 276 276 23 Pressure Bag 36 36 3 Sodium Chloride 0.9% 1, 240 240 20 000 ml @ 20 mls/hr IV . Q24H [facility] Rx#:[id number] Intake, IV Titration 551.837 408.154 129.337 Amount Dexmedetomidine/0.9% NaCl 359.461 200 99.7 (Pmx) 400 mcg In Empty Bag 1 bag @ 0.2 MCG/KG/HR 5.38 mls/hr IV .[id number] [facility] Rx#:[id number] fentaNYL (PF) 2,500 mcg 192.376 208.154 29.637 In Sodium Chloride 0.9% 200 ml @ 0.5 MCG/KG/HR 5. 23 mls/hr IV .Q24H [facility] Rx #:[id number] Tube Feeding 600 600 50 Other 120 90 Output: Urine 2575 830 100 Other: Voiding Method Indwelling Catheter Indwelling Catheter ABP, PAP, CO, CI - Last Documented Arterial Blood Pressure 155/76 - Exam Patient is intubated on a mechanical ventilator. She is sedated , calm and comfortable, responsive, currently on accommodation of fentanyl and Precedex. She has a Shiley #[address] for now. Head exam was generally normal. There was no scleral icterus or corneal arcus. Mucous membranes were moist. Neck was supple and without jugular venous distension, thyromegaly, or carotid bruits. Carotids were easily palpable bilaterally. There was no adenopathy. The patient has a tracheostomy tube Shiley #8 Lungs sounds are diminished in the patient's crackles in the mid and lower lung field bilaterally Cardiac exam revealed the PMI to be normally situated and sized. The rhythm was regular and no extrasystoles were noted during several minutes of auscultation. The first and second heart sounds were normal and physiologic splitting of the second heart sound was noted. There were no murmurs, rubs, clicks, or gallops. Abdominal exam revealed normal bowel sounds. The abdomen was soft, non-tender, and without masses, organomegaly, or appreciable enlargement of the abdominal aorta. The patient also has a active in place. Examination of the extremities revealed easily palpable radial, femoral and pedal pulses. There was no cyanosis, clubbing or edema. Examination of the skin revealed no evidence of significant rashes, suspicious appearing nevi or other concerning lesions. Neurologically, the patient is awake . Pupils are equal and reactive to light. - Labs CBC & Chem 7: 05/15/21 04:30 05/15/21 04:30 Labs: Abnormal Lab Results - Last 24 Hours (Table) 05/14/21 05/14/21 05/15/21 Range/Units 11:38 17:46 00:07 WBC (3.8-10.6) k/uL RBC (3.80-5.40) m/uL Hgb (11.4-16.0) gm/dL Neutrophils # (1.3-7.7) k/uL ABG pH (7.35-7.45) ABG pCO2 (35-45) mmHg ABG pO2 (83-108) mmHg ABG HCO3 (21-25) mmol/L ABG Total CO2 (19-24) mmol/L ABG O2 Saturation (94-97) % Sodium (137-145) mmol/L Potassium (3.5-5.1) mmol/L Carbon Dioxide (22-30) mmol/L Creatinine (0.52-1.04) mg/dL Glucose (74-99) mg/dL POC Glucose (mg/dL) 133 H 127 H 124 H (75-99) mg/dL 05/15/21 05/15/21 05/15/21 Range/Units 04:30 04:30 05:51 WBC 10.9 H (3.8-10.6) k/uL RBC 3.65 L (3.80-5.40) m/uL Hgb 11.3 L (11.4-16.0) gm/dL Neutrophils # 8.1 H (1.3-7.7) k/uL ABG pH (7.35-7.45) ABG pCO2 (35-45) mmHg ABG pO2 (83-108) mmHg ABG HCO3 (21-25) mmol/L ABG Total CO2 (19-24) mmol/L ABG O2 Saturation (94-97) % Sodium 136 L (137-145) mmol/L Potassium 3.3 L (3.5-5.1) mmol/L Carbon Dioxide 31 H (22-30) mmol/L Creatinine 0.37 L (0.52-1.04) mg/dL Glucose 128 H (74-99) mg/dL POC Glucose (mg/dL) 103 H (75-99) mg/dL 05/15/21 Range/Units 05:55 WBC (3.8-10.6) k/uL RBC (3.80-5.40) m/uL Hgb (11.4-16.0) gm/dL Neutrophils # (1.3-7.7) k/uL ABG pH 7.47 H (7.35-7.45) ABG pCO2 46 H (35-45) mmHg ABG pO2 114 H (83-108) mmHg ABG HCO3 33 H (21-25) mmol/L ABG Total CO2 35 H (19-24) mmol/L ABG O2 Saturation 99.0 H (94-97) % Sodium (137-145) mmol/L Potassium (3.5-5.1) mmol/L Carbon Dioxide (22-30) mmol/L Creatinine (0.52-1.04) mg/dL Glucose (74-99) mg/dL POC Glucose (mg/dL) (75-99) mg/dL Assessment and Plan Plan: 1 acute hypoxic respiratory failure secondary to COVID 19 pneumonia. Not been vaccinated for COVID 19. The patient has bilateral pulmonary infiltrates due to progression of her COVID 19 infection. She was originally symptomatic on 04/11/2021. She was diagnosed having COVID 19 infection on 04/13/2021 and the patient had a brief hospitalization and the patient was discharged home on 04/18/2021 after being treated as an inpatient basis. She presented back with acute hypoxic respiratory failure with signs of ARDS. The patient progressed very quickly and she was brought into the intensive care unit and she was intubated on 04/27/2021 and diagnosed PE on therapeutic dose of Lovenox regarding a possible filling defect in the right lower lobe pulmonary artery branch. The patient also has a DVT in her left popliteal vein. The patient is also post-tracheostomy tube insertion on 05/10/2021 and the patient has a #[address] trache[address] tube in place. The patient is gradually improving. There is improvement in her oxygenation based on the morning blood gases. She remains on a pressure control mode of mechanical ventilation which is gradually being weaned off on a daily basis. Chest x-ray remains unchanged and the patient continues to have diffuse bilateral pulmonary infiltration consistent with Covid 19 infection. Remains on Decadron. Remains on anticoagulation with Lovenox. 2 acute hypoxic respiratory failure secondary to above 3 acute right lower lobe pulmonary embolism secondary to Covid 19 infection. the patient is currently on therapeutic dose of Lovenox. patient also has a left lower extremity DVT 4 history of hypothyroidism 5 history of marijuana smoking 6 enteral feeding for nutritional support via PEG tube Plan Wean off fentanyl and keep the Precedex for now Change the ventilator. Pressure control of 14, rate of 20, keep the FiO2 at 50% with a PEEP of 6. Repeat the blood gases around noontime Continue Decadron drop the dose to 4 mg daily Continue Lovenox therapeutic doses Continue vitamin C and vitamin D and zinc supplements Obtain follow-up chest x-ray Continue enteral feeding for nutritional support Gradually wean off the fentanyl drip, keep Precedex Give the patient another dose of Lasix 40 mg IV push 1.the patient is a negative fluif ballance of 483cc Updated the yesterday. We'll continue to follow. Condition is still critical. Evaluation was done more than 30 minutes. The plan is to gradually wean off the PEEP and gradually reduce the sedation for now for any improvement level of alertness. Rest of the treatment will be kept unchanged for now. We'll continue to follow. Condition is still critical. Time with Patient: Greater than 30
--- NOTE | 2021-05-15 09:53 | XR ---
EXAMINATION TYPE: XR chest 1V portable DATE OF EXAM: 05/15/2021 COMPARISON: Chest x-ray 05/14/2021 HISTORY: Covid, abnormal chest x-ray TECHNIQUE: Single frontal view of the chest is obtained. FINDINGS: Tracheostomy tube is overlying the tracheal air column. There is a right-sided PICC line i n place with the tip overlying the right atrium. Bilateral airspace disease is a prominent. No eviden t pneumothorax or pleural effusion. Cardiac mediastinal silhouette is stable. There are overlying art ifacts. IMPRESSION: Stable exam, correlate for Covid pneumonia, ARDS
[2021-05-15] MEDS: SODIUM CHLORIDE 0.9% 500 ML 500 ML IV SCH (10:55)
[2021-05-15 11:38] LABS: Glucose,Whole Blood 121 mg/dL (75-99)
--- NOTE | 2021-05-15 15:00 | P.PN ---
Subjective Progress Note Date: 05/15/21 CHIEF COMPLAINT: COVID-19 pneumonia HISTORY OF PRESENT ILLNESS: Patient is status post tracheostomy and PEG tube placement on 05/10/2021. Patient remains on the ventilator in the ICU. Patient is tolerating tube feedings. She is awake and able to answer questions appropriately. FiO2 of 50% PEEP of 8. Afebrile. WBC 10.9 PHYSICAL EXAM: VITAL SIGNS: Reviewed. GENERAL: no acute distress. HEENT: Moist buccal mucosa. Head is atraumatic, normocephalic. Trachea as a site clean dry and intact ABDOMEN: Soft. Nondistended. Nontender. PEG tube site clean dry and intact ASSESSMENT: 1. Acute hypoxic respiratory failure secondary to COVID-19 pneumonia. 2. Severe Protein calorie malnutrition 3. Right lower lobe pulmonary embolism and right leg DVT PLAN: -Continue ICU management -Continue supportive care -Continue ventilatory weaning -Continue tube feeds at goal Physician Vice President Marketing & Development note has been reviewed by physician. Signing provider agrees with the documented findings, assessment, and plan of care. Objective - Vital Signs Vital signs: Vital Signs Temp 99.5 F 05/15/21 12:00 Pulse 87 05/15/21 14:00 Resp 20 05/15/21 14:00 BP 93/55 05/14/21 21:00 Pulse Ox 96 05/15/21 14:00 Intake & Output 05/14/21 05/15/21 05/15/21 18:59 06:59 18:59 Intake Total 2477.358 4192.154 870.276 Output Total 2575 830 3450 Balance -1027.163 544.154 -2579.724 Weight 106.8 kg 106.8 kg Intake: IV 276 276 184 Pressure Bag 36 36 24 Sodium Chloride 0.9% 1, 240 240 160 000 ml @ 20 mls/hr IV . Q24H [facility] Rx#:[id number] Intake, IV Titration 551.837 408.154 166.276 Amount Dexmedetomidine/0.9% NaCl 359.461 200 136.639 (Pmx) 400 mcg In Empty Bag 1 bag @ 0.2 MCG/KG/HR 5.38 mls/hr IV .[id number] [facility] Rx#:[id number] fentaNYL (PF) 2,500 mcg 192.376 208.154 29.637 In Sodium Chloride 0.9% 200 ml @ 0.5 MCG/KG/HR 5. 23 mls/hr IV .Q24H [facility] Rx #:[id number] Tube Feeding 600 600 400 Other 120 90 120 Output: Urine 0255 830 3450 Other: Voiding Method Indwelling Catheter Indwelling Catheter Indwelling Catheter ABP, PAP, CO, CI - Last Documented Arterial Blood Pressure 121/66 - Labs CBC & Chem 7: 05/15/21 04:30 05/15/21 04:30 Labs: Abnormal Lab Results - Last 24 Hours (Table) 05/14/21 05/15/21 05/15/21 Range/Units 17:46 00:07 04:30 WBC 10.9 H (3.8-10.6) k/uL RBC 3.65 L (3.80-5.40) m/uL Hgb 11.3 L (11.4-16.0) gm/dL Neutrophils # 8.1 H (1.3-7.7) k/uL ABG pH (7.35-7.45) ABG pCO2 (35-45) mmHg ABG pO2 (83-108) mmHg ABG HCO3 (21-25) mmol/L ABG Total CO2 (19-24) mmol/L ABG O2 Saturation (94-97) % Sodium (137-145) mmol/L Potassium (3.5-5.1) mmol/L Carbon Dioxide (22-30) mmol/L Creatinine (0.52-1.04) mg/dL Glucose (74-99) mg/dL POC Glucose (mg/dL) 127 H 124 H (75-99) mg/dL 05/15/21 05/15/21 05/15/21 Range/Units 04:30 05:51 05:55 WBC (3.8-10.6) k/uL RBC (3.80-5.40) m/uL Hgb (11.4-16.0) gm/dL Neutrophils # (1.3-7.7) k/uL ABG pH 7.47 H (7.35-7.45) ABG pCO2 46 H (35-45) mmHg ABG pO2 114 H (83-108) mmHg ABG HCO3 33 H (21-25) mmol/L ABG Total CO2 35 H (19-24) mmol/L ABG O2 Saturation 99.0 H (94-97) % Sodium 136 L (137-145) mmol/L Potassium 3.3 L (3.5-5.1) mmol/L Carbon Dioxide 31 H (22-30) mmol/L Creatinine 0.37 L (0.52-1.04) mg/dL Glucose 128 H (74-99) mg/dL POC Glucose (mg/dL) 103 H (75-99) mg/dL 05/15/21 Range/Units 11:36 WBC (3.8-10.6) k/uL RBC (3.80-5.40) m/uL Hgb (11.4-16.0) gm/dL Neutrophils # (1.3-7.7) k/uL ABG pH (7.35-7.45) ABG pCO2 (35-45) mmHg ABG pO2 (83-108) mmHg ABG HCO3 (21-25) mmol/L ABG Total CO2 (19-24) mmol/L ABG O2 Saturation (94-97) % Sodium (137-145) mmol/L Potassium (3.5-5.1) mmol/L Carbon Dioxide (22-30) mmol/L Creatinine (0.52-1.04) mg/dL Glucose (74-99) mg/dL POC Glucose (mg/dL) 121 H (75-99) mg/dL
--- NOTE | 2021-05-15 17:13 | PN ---
PROGRESS NOTE DATE OF SERVICE: 05/15/2021 CHIEF COMPLAINT: COVID pneumonia and respiratory failure. HISTORY OF PRESENT ILLNESS: This lady continues to do fairly well. She is now almost fully awake and alert. She is following. is at the bedside. PHYSICAL EXAMINATION: Breath sounds are heard bilaterally and the cardiac exam is normal. Vital signs are normal. IMPRESSION: COVID pneumonia and respiratory failure. PLAN: Continue to follow with the hope and intent that she will be able to get out of ICU fairly soon. MMODL / SHERINN: [id number] /
[2021-05-15 17:35] LABS: Glucose,Whole Blood 114 mg/dL (75-99)
--- NOTE | 2021-05-15 20:52 | P.PN ---
Subjective Progress Note Date: 05/15/21 Principal diagnosis: Pneumonia and bacteremia Interval history : Patient is a 46-year-old -[place] female with admission diagnoses of Acute COVID-19 pneumonia subsequently admission to the hospital with worsening respiratory status has been diagnosed with a DVT and PE. The patient is status post trach and PEG tube placement as of 05/10/2021 On today's evaluation that is 05/15/2021, The patient is afebrile today, the patient is hemodynamically stable not requiring any pressor support , the patient FiO2 is down to 50 %, no purulent secretion through the ET has been reported by the nursing staff, patient has been tolerating tube feeds and no diarrhea has been reported, patient has been waking up and is following commands Objective - Vital Signs Vital signs: Vital Signs Temp 99.0 F 05/15/21 16:00 Pulse 93 05/15/21 19:00 Resp 23 05/15/21 19:00 BP 93/55 05/14/21 21:00 Pulse Ox 92 L 05/15/21 19:00 Intake & Output 05/15/21 05/15/21 05/16/21 06:59 18:59 06:59 Intake Total 8941.253 1639.973 73 Output Total 830 3852 125 Balance 544.154 -2525.027 -52 Weight 106.8 kg 106.8 kg Intake: IV 276 276 23 Pressure Bag 36 36 3 Sodium Chloride 0.9% 1, 240 240 20 000 ml @ 20 mls/hr IV . Q24H [facility] Rx#:[id number] Intake, IV Titration 408.154 330.973 Amount Dexmedetomidine/0.9% NaCl 200 199.700 (Pmx) 400 mcg In Empty Bag 1 bag @ 0.2 MCG/KG/HR 5.38 mls/hr IV .[id number] [facility] Rx#:[id number] fentaNYL (PF) 2,500 mcg 208.154 131.273 In Sodium Chloride 0.9% 200 ml @ 0.5 MCG/KG/HR 5. 23 mls/hr IV .Q24H [facility] Rx #:[id number] Tube Feeding 600 600 50 Other 90 120 Output: Urine 830 3850 125 Stool 2 Other: Voiding Method Indwelling Catheter Indwelling Catheter ABP, PAP, CO, CI - Last Documented Arterial Blood Pressure 137/72 - Exam GENERAL DESCRIPTION: Middle-aged female intubated on the vent RESPIRATORY SYSTEM: Unlabored breathing , decreased breath sounds at bases, no wheeze HEART: S1 S2 regular rate and rhythm ,no loud murmurs ABDOMEN: Soft , no tenderness EXTREMITIES: 2+ edema feet - Labs CBC & Chem 7: 05/15/21 04:30 05/15/21 04:30 Labs: Abnormal Lab Results - Last 24 Hours (Table) 05/15/21 05/15/21 05/15/21 Range/Units 00:07 04:30 04:30 WBC 10.9 H (3.8-10.6) k/uL RBC 3.65 L (3.80-5.40) m/uL Hgb 11.3 L (11.4-16.0) gm/dL Neutrophils # 8.1 H (1.3-7.7) k/uL ABG pH (7.35-7.45) ABG pCO2 (35-45) mmHg ABG pO2 (83-108) mmHg ABG HCO3 (21-25) mmol/L ABG Total CO2 (19-24) mmol/L ABG O2 Saturation (94-97) % Sodium 136 L (137-145) mmol/L Potassium 3.3 L (3.5-5.1) mmol/L Carbon Dioxide 31 H (22-30) mmol/L Creatinine 0.37 L (0.52-1.04) mg/dL Glucose 128 H (74-99) mg/dL POC Glucose (mg/dL) 124 H (75-99) mg/dL 05/15/21 05/15/21 05/15/21 Range/Units 05:51 05:55 11:36 WBC (3.8-10.6) k/uL RBC (3.80-5.40) m/uL Hgb (11.4-16.0) gm/dL Neutrophils # (1.3-7.7) k/uL ABG pH 7.47 H (7.35-7.45) ABG pCO2 46 H (35-45) mmHg ABG pO2 114 H (83-108) mmHg ABG HCO3 33 H (21-25) mmol/L ABG Total CO2 35 H (19-24) mmol/L ABG O2 Saturation 99.0 H (94-97) % Sodium (137-145) mmol/L Potassium (3.5-5.1) mmol/L Carbon Dioxide (22-30) mmol/L Creatinine (0.52-1.04) mg/dL Glucose (74-99) mg/dL POC Glucose (mg/dL) 103 H 121 H (75-99) mg/dL 05/15/21 Range/Units 17:34 WBC (3.8-10.6) k/uL RBC (3.80-5.40) m/uL Hgb (11.4-16.0) gm/dL Neutrophils # (1.3-7.7) k/uL ABG pH (7.35-7.45) ABG pCO2 (35-45) mmHg ABG pO2 (83-108) mmHg ABG HCO3 (21-25) mmol/L ABG Total CO2 (19-24) mmol/L ABG O2 Saturation (94-97) % Sodium (137-145) mmol/L Potassium (3.5-5.1) mmol/L Carbon Dioxide (22-30) mmol/L Creatinine (0.52-1.04) mg/dL Glucose (74-99) mg/dL POC Glucose (mg/dL) 114 H (75-99) mg/dL Assessment and Plan (1) Positive blood culture Current Visit: Yes Status: Acute Code(s): R78.81 - BACTEREMIA SNOMED Code(s): 482263974 (2) COVID-19 Current Visit: Yes Status: Acute Code(s): U07.1 - COVID-19 SNOMED Code(s): 359431514 Plan: 1-patient with a positive blood culture which has been finalized and staph epi likely skin contaminant, Repeat blood culture has been negative so far, patient is being monitored off vancomycin 2-acute respiratory failure which is multifactorial possible component of pneumonia, Sputum has been usual respiratory pat, patient has completed a course of IV cefepime, the patient White count is normal and the patient will be monitor closely off antibiotic therapy
[2021-05-15 23:52] LABS: Glucose,Whole Blood 112 mg/dL (75-99)
[2021-05-16] MEDS: INSULIN ASPART (NovoLOG) 100 UNIT/ML VIAL SQ SCH ×4 (00:14→21:05)
[2021-05-16 05:29] LABS: ABG Base Excess 10.3 mmol/L; ABG HCO3 34 mmol/L (21-25); ABG Oxygen Saturation 92.6 % (94-97); ABG PCO2 47 mmHg (35-45); ABG PH 7.47 (7.35-7.45); ABG PO2 63 mmHg (83-108); ABG TCO2 36 mmol/L (19-24); Allen Test Performed? Yes
[2021-05-16 05:44] LABS: Glucose,Whole Blood 93 mg/dL (75-99)
[2021-05-16 05:59] LABS: HCT 35.3 % (34.0-46.0); HGB 11.4 gm/dL (11.4-16.0); MCH 31.2 pg (25.0-35.0); MCHC 32.2 g/dL (31.0-37.0); MCV 96.8 fL (80.0-100.0); Platelet Count 284 k/uL (150-450); RBC 3.65 m/uL (3.80-5.40); RDW 14.6 % (11.5-15.5); WBC 10.4 k/uL (3.8-10.6)
[2021-05-16] MEDS: DEXMEDETOMIDINE/0.9% NACL(PMX) 400 MCG in EMPTY BAG 1 BAG IV SCH (06:00)
[2021-05-16 06:32] LABS: African American GFR (CKD) >90 (>60 ml/min/1.73 sqM); Anion Gap 2 mmol/L; Blood Urea Nitrogen 15 mg/dL (7-17); Calcium 8.9 mg/dL (8.4-10.2); Carbon Dioxide 33 mmol/L (22-30); Chloride 103 mmol/L (98-107); Glucose 98 mg/dL (74-99); Non-African American GFR(CKD) >90 (>60 ml/min/1.73 sqM); Potassium 3.5 mmol/L (3.5-5.1); Sodium 138 mmol/L (137-145)
[2021-05-16] MEDS: ALBUTEROL HFA INHALER INHALATION SCH ×4 (07:42→21:23)
--- NOTE | 2021-05-16 08:34 | XR ---
EXAMINATION TYPE: XR chest 1V portable DATE OF EXAM: 05/16/2021 COMPARISON: Chest x-ray 05/15/2021 HISTORY: Covid 19 pneumonia, tracheostomy tube placement TECHNIQUE: Single frontal view of the chest is obtained. FINDINGS: Findings are similar to prior exam. No pneumothorax or pleural effusion. Bilateral airspac e disease persists. PICC line is present with the tip in the right atrium, tracheostomy tube is overl rasheed appropriate position in the tracheal air column. IMPRESSION: Correlate for pneumonia, ARDS.
[2021-05-16] MEDS: DEXAMETHASONE SOD PHOSPHATE 4 MG/ML 1 ML VIAL IVP SCH (09:05)
[2021-05-16] MEDS: ENOXAPARIN 100 MG/ML SYRINGE SQ SCH (09:05)
[2021-05-16] MEDS: ASCORBIC ACID 500 MG TAB PO SCH (09:06)
[2021-05-16] MEDS: LEVOTHYROXINE 112 MCG TAB PO SCH (09:06)
[2021-05-16] MEDS: bisacodyL 10 MG SUPP RECTAL SCH (09:06)
[2021-05-16] MEDS: CHLORHEXIDINE GLUCONATE 15 ML CUP MUCOUS MEM SCH ×2 (09:06→21:46)
[2021-05-16] MEDS: FLUCONAZOLE 100 MG TAB PO SCH (09:06)
[2021-05-16] MEDS: CHOLECALCIFEROL 125 MCG (5000 IU) TABLET PO SCH (09:06)
[2021-05-16] MEDS: ACETAMINOPHEN TAB 325 MG TAB PO PRN (09:18)
--- NOTE | 2021-05-16 09:54 | P.PN ---
Subjective Progress Note Date: 05/16/21 45-year-old -[place] female patient who is currently in the hospital for Covid 19 related pneumonia. The patient was intubated and placed on mechanical ventilator due to extensive pneumonia/ARDS. Subsequently, the patient was given a tracheostomy tube on 05/10/2021. This morning, the patient is on a combination of sedation. The patient is on Precedex running at 1 mcg/kg per minute and the patient is also on fentanyl at 11.5 mcg/kg/h. The patient is off paralytics. She is responsive. She follows some simple commands. Her ventilator settings are currently an assist-control mode at the rate of 28, pressure control of 20, inspiratory time of 0.9 seconds, PEEP of 12 and FiO2 of 40%. Peak airway pressure is 33. The chest x-ray is showing diffuse bilateral pulmonary infiltrates. The tracheostomy tube Is high in the trachea. The patient has a PICC line in the right upper extremity. Meanwhile, the blood gases from today shows a pH of 7.44 with a pCO2 of 46 and pO2 of 87 and this was done and FiO2 of 40%. The patient remains on Decadron 6 mg IV every 24 hours. The patient is also on Lovenox 100 mg subcu twice a day as the patient was found to have a right lower extremity DVT on 04/28/2021 and since then the patient has been on therapeutic dose of Lovenox for note that she also had pulmonary embolism as evident on the CT angiogram that was obtained on 04/24/2021. CT an giogram showed right lower lobe pulmonary artery branch segmental filling defects. On today's evaluation, her white cell thousand 12 with a hemoglobin of 11.4 and a platelet count of 305. Sodium is at 138 with a potassium level of 3.8, chloride is 106 bicarb is at 30 with a BUN of 10 and a creatinine of 0.4. The patient is receiving enteral feeding for insurance support. She is currently on vital high protein at a rate of 20 mL an hour. She is on NovoLog sliding scale coverage. She is on Synthroid 112 g on a daily basis. She is also receiving Seroquel 50 mg by mouth twice a day for increased delirium/agitation. Otherwise, no other significant events overnight. All of the cultures of been negative with except of 1 blood culture that was obtained on 04/27/2021 and rubber turner to be staph epidermidis. She is on Diflucan for oropharyngeal candidiasis 05/14/2021, I'm seeing the patient for a follow-up. The patient is arousable and awake and she's communicating. He is unhappy and slightly anxious. She is on Precedex running at 0.7 mcg/kg/m and she is also on fentanyl running at 1 mcg/kg/h. She remains on a mechanical ventilator and she is quite comfortable at this point in time. The morning ventilator settings include an assist- control at the rate of 28 pressure control mode with a pressure control of 20, PEEP of 8, FiO2 of 40% with an inspiratory time of 0.9. The blood gases from this morning shows a pH of 7.48 with a pCO2 of 42 and pO2 of 68. Chest x-ray from this morning shows no major interval change. Tracheostomy tube remains in a good location and the patient has a #[address] No significant orotracheal secretions at this point in time. The patient remains hemodynamically stable. Pulse ox is above 88%. Cardiac rhythm is sinus. She has a PEG tube and she is receiving enteral feeding for nutritional support and the patient is currently on vital high protein at the rate of 39 mL an hour. She is stooling. She has a PICC line in her right upper extremity. In terms of her Covid 19 therapy, the patient is currently on Decadron 6 g IV every 24 hours. She remains on therapeutic dose of Lovenox 100 mg subcu every 12 hours as the patient was found to have a right lower extremity DVT on and subsequently there was also pulmonary embolism involving the right lower lobe pulmonary artery branches with segmental filling defects. Otherwise, she is doing well. The white cell count is at 10.2 with a hemoglobin of 11. The BUN is at 11 with a creatinine of 0.4 and sodium level is at 137. Blood sugar is at 119. She remains on Diflucan for oropharyngeal candidiasis. No other positive blood cultures. No other significant events overnight. 05/15/2021, the patient is awake. She remains on Precedex running at 1 mcg/kg/m and the patient is also on fentanyl at 1 mcg/kg/h. Despite all this, she is wide awake. She is responsive. She follows commands. She will go 4 extremities without any limitation. Her breathing is nonlabored. She was on a pressure control mode of mechanical ventilation and earlier this morning, she wasn't a pressure control of 16, PEEP of 8, FiO2 of 50% and a rate of 26. The chest x-ray was unchanged and showed diffuse bilateral pulmonary infiltrates and the Shiley tracheostomy she was sitting very high trachea. Nevertheless, the patient was returning her volumes. The chest x-ray still showing diffuse infiltration. Her oxidation is improved and the patient's most recent blood gas showed a pH of 7.47 with a pCO2 of 46 and pO2 114 and this was done and FiO2 of 50%. Her white cell count is at 10.9 with a hemoglobin of 11.3. Sodium is at 136 with a potassium level of 3.3. BUN is at 12 with a creatinine of 0.3. Glucose is 103. The patient remains on Decadron 6 mg IV every 24 hours. She remains on therapeutic doses of Lovenox 1 mg subcu every 12 hours as the patient has a right lower extremity DVT that was diagnosed on 04/18/[address] angiogram also showed filling defects in the right lower lobe pulmonary artery branches. As such, the patient has been maintained on therapeutic doses of Lovenox. She is on Diflucan. She was started on Diflucan on 05/11/2021 by infectious disease. She remains on IV Protonix. She is receiving enteral feeding for nutritional support. In terms of her Covid 19 isolation, the patient was taken off of drop with isolation today. All of the cultures of been negative. The patient is awaiting although she is showing daily progress. I am giving daily basis to the family. I met the mother yesterday at the bedside. N o other significant events. No open wounds. 05/16/2021, the patient is doing very well. She is awake and alert and communicating. She continues to have significant amount of weakness although the strength in the upper extremities are improving. The legs are still weak. We managed to with gradually wean off the sedation. Noted the patient was on a combination of Precedex and fentanyl. Fentanyl was discontinued and overnight Precedex was also discontinued. This morning the patient is on no sedation. She is awake. She is watching television. She is calm and comfortable. She remains on a pressure control mode of mechanical ventilation. This morning she is on assist control of 20, pressure control of 14, FiO2 of 50% with a PEEP of 5. The patient's pulse ox is currently at 96%. The blood gases from today showed a pH of 7.47 pCO2 of 47 and pO2 of 63 and this was done and FiO2 of 50%. Chest x-ray shows no major interval change. The patient has a Shiley tracheostomy tube and the tip of the tube is sitting high in the trachea. Otherwise, no evidence of any pneumothorax. There is still diffuse breath and pulmonary infiltrates consistent with an underlying Covid 19 infection. The white cell count is at 10.4 with a hemoglobin of 11.4 and the platelet count is at 284. Renal function stable and the creatinine is at 0.4 with a BUN of 15 and a sodium level of 138. She is receiving enteral feeding for nutritional support and the patient is currently on vital high protein at the rate of 50 mL an hour. No abdominal distention. She is producing bowel movements. In terms of her steroids, the patient was dropped down to 4 mg of Decadron and she remains on therapy dose of Lovenox at 100 mg subcu every 12 hours. No significant edema in lower extremities. She is receiving daily Lasix doses. The neck fluid balance over the past 24 hours has been negative for 83 mL. Otherwise, no other significant events overnight. Family has been at the bedside on multiple occas ions. She remains on a low dose of Seroquel for delirium and agitation. Cerebral is being used at a dose of 50 mg by mouth twice a day. She remains on a NovoLog SS coverage. She is also on a thyroid hormone replacement. Objective - Vital Signs Vital signs: Vital Signs Temp 98.9 F 05/16/21 04:00 Pulse 73 05/16/21 07:00 Resp 20 05/16/21 07:00 BP 93/55 05/14/21 21:00 Pulse Ox 96 05/16/21 07:00 Intake & Output 05/15/21 05/16/21 05/16/21 18:59 06:59 18:59 Intake Total 1667.944 3438.012 146 Output Total 3852 850 70 Balance -2525.027 271.012 76 Weight 106.8 kg 102.2 kg Intake: IV 276 273 46 Pressure Bag 36 33 6 Sodium Chloride 0.9% 1, 240 240 40 000 ml @ 20 mls/hr IV . Q24H [facility] Rx#:[id number] Intake, IV Titration 330.973 158.012 Amount Dexmedetomidine/0.9% NaCl 199.700 100.090 (Pmx) 400 mcg In Empty Bag 1 bag @ 0.2 MCG/KG/HR 5.38 mls/hr IV .[id number] [facility] Rx#:[id number] fentaNYL (PF) 2,500 mcg 131.273 57.922 In Sodium Chloride 0.9% 200 ml @ 0.5 MCG/KG/HR 5. 23 mls/hr IV .Q24H [facility] Rx #:[id number] Tube Feeding 600 600 100 Other 120 90 Output: Urine 3850 850 70 Stool 2 Other: Voiding Method Indwelling Catheter Indwelling Catheter ABP, PAP, CO, CI - Last Documented Arterial Blood Pressure 113/51 - Exam Patient is intubated on a mechanical ventilator. She is sedated , calm and comfortable, responsive, currently off sadation She has a Shiley #[address] for now. Head exam was generally normal. There was no scleral icterus or corneal arcus. Mucous membranes were moist. Neck was supple and without jugular venous distension, thyromegaly, or carotid bruits. Carotids were easily palpable bilaterally. There was no adenopathy. The patient has a tracheostomy tube Shiley #8 Lungs sounds are diminished in the patient's crackles in the mid and lower lung field bilaterally Cardiac exam revealed the PMI to be normally situated and sized. The rhythm was regular and no extrasystoles were noted during several minutes of auscultation. The first and second heart sounds were normal and physiologic splitting of the second heart sound was noted. There were no murmurs, rubs, clicks, or gallops. Abdominal exam revealed normal bowel sounds. The abdomen was soft, non-tender, and without masses, organomegaly, or appreciable enlargement of the abdominal aorta. The patient also has a active in place. Examination of the extremities revealed easily palpable radial, femoral and pedal pulses. There was no cyanosis, clubbing or edema. Examination of the skin revealed no evidence of significant rashes, suspicious appearing nevi or other concerning lesions. Neurologically, the patient is awake . Pupils are equal and reactive to light. - Labs CBC & Chem 7: 05/16/21 05:35 05/16/21 05:35 Labs: Abnormal Lab Results - Last 24 Hours (Table) 05/15/21 05/15/21 05/15/21 Range/Units 11:36 17:34 23:50 RBC (3.80-5.40) m/uL ABG pH (7.35-7.45) ABG pCO2 (35-45) mmHg ABG pO2 (83-108) mmHg ABG HCO3 (21-25) mmol/L ABG Total CO2 (19-24) mmol/L ABG O2 Saturation (94-97) % Carbon Dioxide (22-30) mmol/L Creatinine (0.52-1.04) mg/dL POC Glucose (mg/dL) 121 H 114 H 112 H (75-99) mg/dL 05/16/21 05/16/21 05/16/21 Range/Units 05:25 05:35 05:35 RBC 3.65 L (3.80-5.40) m/uL ABG pH 7.47 H (7.35-7.45) ABG pCO2 47 H (35-45) mmHg ABG pO2 63 L (83-108) mmHg ABG HCO3 34 H (21-25) mmol/L ABG Total CO2 36 H (19-24) mmol/L ABG O2 Saturation 92.6 L (94-97) % Carbon Dioxide 33 H (22-30) mmol/L Creatinine 0.44 L (0.52-1.04) mg/dL POC Glucose (mg/dL) (75-99) mg/dL Assessment and Plan Plan: 1 acute hypoxic respiratory failure secondary to COVID 19 pneumonia. Not been vaccinated for COVID 19. The patient has bilateral pulmonary infiltrates due to progression of her COVID 19 infection. She was originally symptomatic on 04/11/2021. She was diagnosed having COVID 19 infection on 04/13/2021 and the patient had a brief hospitalization and the patient was discharged home on 04/18/2021 after being treated as an inpatient basis. She presented back with acute hypoxic respiratory failure with signs of ARDS. The patient progressed very quickly and she was brought into the intensive care unit and she was intubated on 04/27/2021 and diagnosed PE on therapeutic dose of Lovenox regarding a possible filling defect in the right lower lobe pulmonary artery branch. The patient also has a DVT in her left popliteal vein. The patient is also post-tracheostomy tube insertion on 05/10/2021 and the patient has a #[address] tube in [address]. The patient is gradually improving. The patient is gradually getting more strong. She is off sedatives for now. She is on a pressure control mode of mechanical ventilation. This is being gradually weaned off. We'll check weaning parameters and assess his ability to was switched to a pressure support mode a medical mechanical ventilation. Chest x- ray findings are stable. Patient has a tracheostomy tube in place. 2 acute hypoxic respiratory failure secondary to above 3 acute right lower lobe pulmonary embolism secondary to Covid 19 infection. the patient is currently on therapeutic dose of Lovenox. patient also has a left lower extremity DVT 4 history of hypothyroidism 5 history of marijuana smoking 6 enteral feeding for nutritional support via PEG tube Plan Wean off fentanyl and keep the Precedex for now Change the ventilator. Pressure control of 14, rate of 20, keep the FiO2 at 40% with a PEEP of 5. Weaning parameters and assess the patient's ability to go on a pressure support mode of mechanical ventilation. Repeat the blood gases around noontime Continue Decadron drop the dose to 4 mg daily Discontinue the Lovenox since was this patient to 5 mg of Eliquis twice a day Continue vitamin C and vitamin D and zinc supplements Obtain follow-up chest x-ray Continue enteral feeding for nutritional support Gradually wean off the fentanyl drip, keep Precedex Discontinue Lasix Physical therapy and passive range of motion Updated the yesterday. We'll continue to follow. Condition is still critical. Evaluation was done more than 30 minutes. The plan is to gradually wean off the PEEP and gradually reduce the sedation for now for any improvement level of alertness. Rest of the treatment will be kept unchanged for now. We'll continue to follow. Condition is still critical. Time with Patient: Greater than 30
[2021-05-16] MEDS: ZINC SULFATE 220 MG CAP PO SCH (10:14)
[2021-05-16] MEDS: PANTOPRAZOLE 40 MG/10 ML VIAL IVP SCH (10:14)
[2021-05-16] MEDS: POTASSIUM BICARBONATE/CIT AC 20 MEQ TABLET.EFF NG-TUBE SCH ×2 (10:14→10:37)
[2021-05-16] MEDS: QUEtiapine 50 MG TAB PO SCH ×2 (10:17→21:46)
[2021-05-16] MEDS: SODIUM CHLORIDE 0.9% 500 ML 500 ML IV SCH (10:37)
--- NOTE | 2021-05-16 11:15 | P.PN ---
<Antonina Cosby - Last Filed: 05/16/21 11:13> Subjective Progress Note Date: 05/16/21 CHIEF COMPLAINT: COVID-19 pneumonia HISTORY OF PRESENT ILLNESS: Patient is status post tracheostomy and PEG tube placement on 05/10/2021. Patient remains on the ventilator in the ICU. Patient is tolerating tube feedings at 50ml/hr. She is awake and able to answer questions appropriately. FiO2 of 40% PEEP of 5. Afebrile. WBC 10.4 PHYSICAL EXAM: VITAL SIGNS: Reviewed. GENERAL: no acute distress. HEENT: Moist buccal mucosa. Head is atraumatic, normocephalic. Trachea as a site clean dry and intact ABDOMEN: Soft. Nondistended. Nontender. PEG tube site clean dry and intact ASSESSMENT: 1. Acute hypoxic respiratory failure secondary to COVID-19 pneumonia. 2. Severe Protein calorie malnutrition 3. Right lower lobe pulmonary embolism and right leg DVT PLAN: -Continue ICU management -Continue supportive care -Continue ventilatory weaning -Continue tube feeds at goal Physician Geospatial Scientist note has been reviewed by physician. Signing provider agrees with the documented findings, assessment, and plan of care. Objective - Vital Signs Vital signs: Vital Signs Temp 98.5 F 05/16/21 08:00 Pulse 89 05/16/21 10:00 Resp 27 H 05/16/21 10:00 BP 93/55 05/16/21 10:00 Pulse Ox 92 L 05/16/21 10:00 Intake & Output 05/15/21 05/16/21 05/16/21 18:59 06:59 18:59 Intake Total 6310.453 4370.012 365 Output Total 3852 850 180 Balance -2525.027 271.012 185 Weight 106.8 kg 102.2 kg Intake: IV 276 273 115 Pressure Bag 36 33 15 Sodium Chloride 0.9% 1, 240 240 100 000 ml @ 20 mls/hr IV . Q24H [facility] Rx#:[id number] Intake, IV Titration 330.973 158.012 Amount Dexmedetomidine/0.9% NaCl 199.700 100.090 (Pmx) 400 mcg In Empty Bag 1 bag @ 0.2 MCG/KG/HR 5.38 mls/hr IV .[id number] [facility] Rx#:[id number] fentaNYL (PF) 2,500 mcg 131.273 57.922 In Sodium Chloride 0.9% 200 ml @ 0.5 MCG/KG/HR 5. 23 mls/hr IV .Q24H [facility] Rx #:[id number] Tube Feeding 600 600 250 Other 120 90 Output: Urine 3850 850 180 Stool 2 Other: Voiding Method Indwelling Catheter Indwelling Catheter Indwelling Catheter ABP, PAP, CO, CI - Last Documented Arterial Blood Pressure 121/42 - Labs CBC & Chem 7: 05/16/21 05:35 05/16/21 05:35 Labs: Abnormal Lab Results - Last 24 Hours (Table) 05/15/21 05/15/21 05/15/21 Range/Units 11:36 17:34 23:50 RBC (3.80-5.40) m/uL ABG pH (7.35-7.45) ABG pCO2 (35-45) mmHg ABG pO2 (83-108) mmHg ABG HCO3 (21-25) mmol/L ABG Total CO2 (19-24) mmol/L ABG O2 Saturation (94-97) % Carbon Dioxide (22-30) mmol/L Creatinine (0.52-1.04) mg/dL POC Glucose (mg/dL) 121 H 114 H 112 H (75-99) mg/dL 05/16/21 05/16/21 05/16/21 Range/Units 05:25 05:35 05:35 RBC 3.65 L (3.80-5.40) m/uL ABG pH 7.47 H (7.35-7.45) ABG pCO2 47 H (35-45) mmHg ABG pO2 63 L (83-108) mmHg ABG HCO3 34 H (21-25) mmol/L ABG Total CO2 36 H (19-24) mmol/L ABG O2 Saturation 92.6 L (94-97) % Carbon Dioxide 33 H (22-30) mmol/L Creatinine 0.44 L (0.52-1.04) mg/dL POC Glucose (mg/dL) (75-99) mg/dL <Paolo Chavez - Last Filed: 05/16/21 14:15> Subjective I have personally seen and examined the patient, reviewed the TRANSPLANT IMMUNOLOGIST /PAs history, exam and MDM and agree with the assessment and plan as written. Based on total visit time, I have performed more than 50% of the visit. As above. Patient doing well today. Some fatigue. She has been weaning. Her bolster was loosened. Will have the tracheostomy sutures removed. Will follow on an as-needed basis. Please call if any issues with the tracheostomy or PEG tube arise. Objective - Vital Signs Vital signs: Vital Signs Temp 99.6 F 05/16/21 12:00 Pulse 90 05/16/21 14:00 Resp 11 L 05/16/21 14:00 BP 93/55 05/16/21 14:00 Pulse Ox 96 05/16/21 14:00 Intake & Output 05/15/21 05/16/21 05/16/21 18:59 06:59 18:59 Intake Total 0252.842 3139.012 584 Output Total 3852 850 705 Balance -2525.027 271.012 -121 Weight 106.8 kg 102.2 kg Intake: IV 276 273 184 Pressure Bag 36 33 24 Sodium Chloride 0.9% 1, 240 240 160 000 ml @ 20 mls/hr IV . Q24H [facility] Rx#:[id number] Intake, IV Titration 330.973 158.012 Amount Dexmedetomidine/0.9% NaCl 199.700 100.090 (Pmx) 400 mcg In Empty Bag 1 bag @ 0.2 MCG/KG/HR 5.38 mls/hr IV .[id number] [facility] Rx#:[id number] fentaNYL (PF) 2,500 mcg 131.273 57.922 In Sodium Chloride 0.9% 200 ml @ 0.5 MCG/KG/HR 5. 23 mls/hr IV .Q24H [facility] Rx #:[id number] Tube Feeding 600 600 400 Other 120 90 Output: Urine 3850 850 705 Stool 2 Other: Voiding Method Indwelling Catheter Indwelling Catheter Indwelling Catheter ABP, PAP, CO, CI - Last Documented Arterial Blood Pressure 111/57 - Labs CBC & Chem 7: 05/16/21 05:35 05/16/21 05:35 Labs: Abnormal Lab Results - Last 24 Hours (Table) 05/15/21 05/15/21 05/16/21 Range/Units 17:34 23:50 05:25 RBC (3.80-5.40) m/uL ABG pH 7.47 H (7.35-7.45) ABG pCO2 47 H (35-45) mmHg ABG pO2 63 L (83-108) mmHg ABG HCO3 34 H (21-25) mmol/L ABG Total CO2 36 H (19-24) mmol/L ABG O2 Saturation 92.6 L (94-97) % Carbon Dioxide (22-30) mmol/L Creatinine (0.52-1.04) mg/dL POC Glucose (mg/dL) 114 H 112 H (75-99) mg/dL 05/16/21 05/16/21 Range/Units 05:35 05:35 RBC 3.65 L (3.80-5.40) m/uL ABG pH (7.35-7.45) ABG pCO2 (35-45) mmHg ABG pO2 (83-108) mmHg ABG HCO3 (21-25) mmol/L ABG Total CO2 (19-24) mmol/L ABG O2 Saturation (94-97) % Carbon Dioxide 33 H (22-30) mmol/L Creatinine 0.44 L (0.52-1.04) mg/dL POC Glucose (mg/dL) (75-99) mg/dL Assessment and Plan (1) COVID-19 Current Visit: Yes Status: Acute Code(s): U07.1 - COVID-19 SNOMED Code(s): 966953891
[2021-05-16 11:50] LABS: Glucose,Whole Blood 98 mg/dL (75-99)
[2021-05-16 17:42] LABS: Glucose,Whole Blood 100 mg/dL (75-99)
--- NOTE | 2021-05-16 20:11 | PN ---
PROGRESS NOTE CHIEF COMPLAINT: COVID pneumonia and respiratory failure. HISTORY OF PRESENT ILLNESS: This lady is doing fairly well, but her chest x-ray still displays extensive infiltrates, and pulse ox is being maintained around 90%. Otherwise she is stable. PHYSICAL EXAMINATION: Chest is clear. Cardiac exam is normal. Abdomen is soft. Vital signs are normal. IMPRESSION: COVID pneumonia with respiratory failure. PLAN: No change in her program at this time. MMODL / IJN: [id number] /
[2021-05-16] MEDS: APIXABAN 5 MG TAB PO SCH (21:46)
[2021-05-17] MEDS: INSULIN ASPART (NovoLOG) 100 UNIT/ML VIAL SQ SCH ×2 (01:18→06:10)
[2021-05-17 05:33] LABS: Glucose,Whole Blood 111 mg/dL (75-99)
[2021-05-17 05:39] LABS: HCT 31.9 % (34.0-46.0); HGB 10.3 gm/dL (11.4-16.0); MCH 31.5 pg (25.0-35.0); MCHC 32.5 g/dL (31.0-37.0); MCV 96.9 fL (80.0-100.0); Mean Platelet Volume 9.1; Platelet Count 254 k/uL (150-450); RBC 3.29 m/uL (3.80-5.40); RDW 14.5 % (11.5-15.5); WBC 9.8 k/uL (3.8-10.6)
[2021-05-17 05:42] LABS: ABG Base Excess 8.9 mmol/L; ABG HCO3 32 mmol/L (21-25); ABG Oxygen Saturation 96.1 % (94-97); ABG PCO2 41 mmHg (35-45); ABG PO2 74 mmHg (83-108); ABG TCO2 33 mmol/L (19-24); Allen Test Performed? Yes
[2021-05-17 06:15] LABS: African American GFR (CKD) >90 (>60 ml/min/1.73 sqM); Anion Gap 2 mmol/L; Blood Urea Nitrogen 13 mg/dL (7-17); Carbon Dioxide 31 mmol/L (22-30); Chloride 104 mmol/L (98-107); Glucose 111 mg/dL (74-99); Non-African American GFR(CKD) >90 (>60 ml/min/1.73 sqM); Potassium 3.6 mmol/L (3.5-5.1); Sodium 137 mmol/L (137-145)
[2021-05-17] MEDS: LEVOTHYROXINE 112 MCG TAB PO SCH (07:10)
[2021-05-17] MEDS ORDERED: POTASSIUM BICARBONATE/CIT AC 20 MEQ TABLET.EFF NG-TUBE SCH (07:30)
[2021-05-17] MEDS: ALBUTEROL HFA INHALER INHALATION SCH ×4 (07:39→20:11)
[2021-05-17] MEDS: bisacodyL 10 MG SUPP RECTAL SCH (08:18)
[2021-05-17] MEDS: CHLORHEXIDINE GLUCONATE 15 ML CUP MUCOUS MEM SCH ×2 (08:28→20:08)
[2021-05-17] MEDS: ACETAMINOPHEN TAB 325 MG TAB PO PRN ×2 (08:28→18:14)
[2021-05-17] MEDS: DEXAMETHASONE SOD PHOSPHATE 4 MG/ML 1 ML VIAL IVP SCH (08:28)
[2021-05-17] MEDS: PANTOPRAZOLE 40 MG/10 ML VIAL IVP SCH (08:29)
[2021-05-17] MEDS: ASCORBIC ACID 500 MG TAB PO SCH (08:29)
[2021-05-17] MEDS: ZINC SULFATE 220 MG CAP PO SCH (08:29)
[2021-05-17] MEDS: APIXABAN 5 MG TAB PO SCH ×2 (08:29→20:08)
[2021-05-17] MEDS: QUEtiapine 50 MG TAB PO SCH ×2 (08:29→20:08)
[2021-05-17] MEDS: CHOLECALCIFEROL 125 MCG (5000 IU) TABLET PO SCH (08:30)
--- NOTE | 2021-05-17 08:54 | XR ---
EXAMINATION TYPE: XR chest 1V portable DATE OF EXAM: 05/17/2021 COMPARISON: Chest x-ray dated 05/16/2021 HISTORY: Covid pneumonia TECHNIQUE: Single frontal view of the chest is obtained. FINDINGS: Findings are similar to prior exam. PICC line shows the distal tip in the right atrium. Tr acheostomy tube is overlying the tracheal air column. There is no evident pneumothorax or pleural eff usion. Lung volumes are low. Bilateral airspace disease is again seen. Cardiac mediastinal silhouette is stable. IMPRESSION: Findings consistent with patient's history of Covid pneumonia
--- NOTE | 2021-05-17 09:29 | P.PN ---
Subjective Progress Note Date: 05/17/21 45-year-old -[place] female patient who is currently in the hospital for Covid 19 related pneumonia. The patient was intubated and placed on mechanical ventilator due to extensive pneumonia/ARDS. Subsequently, the patient was given a tracheostomy tube on 05/10/2021. This morning, the patient is on a combination of sedation. The patient is on Precedex running at 1 mcg/kg per minute and the patient is also on fentanyl at 11.5 mcg/kg/h. The patient is off paralytics. She is responsive. She follows some simple commands. Her ventilator settings are currently an assist-control mode at the rate of 28, pressure control of 20, inspiratory time of 0.9 seconds, PEEP of 12 and FiO2 of 40%. Peak airway pressure is 33. The chest x-ray is showing diffuse bilateral pulmonary infiltrates. The tracheostomy tube Is high in the trachea. The patient has a PICC line in the right upper extremity. Meanwhile, the blood gases from today shows a pH of 7.44 with a pCO2 of 46 and pO2 of 87 and this was done and FiO2 of 40%. The patient remains on Decadron 6 mg IV every 24 hours. The patient is also on Lovenox 100 mg subcu twice a day as the patient was found to have a right lower extremity DVT on 04/28/2021 and since then the patient has been on therapeutic dose of Lovenox for note that she also had pulmonary embolism as evident on the CT angiogram that was obtained on 04/24/2021. CT an giogram showed right lower lobe pulmonary artery branch segmental filling defects. On today's evaluation, her white cell thousand 12 with a hemoglobin of 11.4 and a platelet count of 305. Sodium is at 138 with a potassium level of 3.8, chloride is 106 bicarb is at 30 with a BUN of 10 and a creatinine of 0.4. The patient is receiving enteral feeding for insurance support. She is currently on vital high protein at a rate of 20 mL an hour. She is on NovoLog sliding scale coverage. She is on Synthroid 112 g on a daily basis. She is also receiving Seroquel 50 mg by mouth twice a day for increased delirium/agitation. Otherwise, no other significant events overnight. 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 She is on Diflucan for oropharyngeal candidiasis 05/14/2021, I'm seeing the patient for a follow-up. The patient is arousable and awake and she's communicating. He is unhappy and slightly anxious. She is on Precedex running at 0.7 mcg/kg/m and she is also on fentanyl running at 1 mcg/kg/h. She remains on a mechanical ventilator and she is quite comfortable at this point in time. The morning ventilator settings include an assist- control at the rate of 28 pressure control mode with a pressure control of 20, PEEP of 8, FiO2 of 40% with an inspiratory time of 0.9. The blood gases from this morning shows a pH of 7.48 with a pCO2 of 42 and pO2 of 68. Chest x-ray from this morning shows no major interval change. Tracheostomy tube remains in a good location and the patient has a #[address] No significant orotracheal secretions at this point in time. The patient remains hemodynamically stable. Pulse ox is above 88%. Cardiac rhythm is sinus. She has a PEG tube and she is receiving enteral feeding for nutritional support and the patient is currently on vital high protein at the rate of 39 mL an hour. She is stooling. She has a PICC line in her right upper extremity. In terms of her Covid 19 therapy, the patient is currently on Decadron 6 g IV every 24 hours. She remains on therapeutic dose of Lovenox 100 mg subcu every 12 hours as the patient was found to have a right lower extremity DVT on and subsequently there was also pulmonary embolism involving the right lower lobe pulmonary artery branches with segmental filling defects. Otherwise, she is doing well. The white cell count is at 10.2 with a hemoglobin of 11. The BUN is at 11 with a creatinine of 0.4 and sodium level is at 137. Blood sugar is at 119. She remains on Diflucan for oropharyngeal candidiasis. No other positive blood cultures. No other significant events overnight. 05/15/2021, the patient is awake. She remains on Precedex running at 1 mcg/kg/m and the patient is also on fentanyl at 1 mcg/kg/h. Despite all this, she is wide awake. She is responsive. She follows commands. She will go 4 extremities without any limitation. Her breathing is nonlabored. She was on a pressure control mode of mechanical ventilation and earlier this morning, she wasn't a pressure control of 16, PEEP of 8, FiO2 of 50% and a rate of 26. The chest x-ray was unchanged and showed diffuse bilateral pulmonary infiltrates and the Shiley tracheostomy she was sitting very high trachea. Nevertheless, the patient was returning her volumes. The chest x-ray still showing diffuse infiltration. Her oxidation is improved and the patient's most recent blood gas showed a pH of 7.47 with a pCO2 of 46 and pO2 114 and this was done and FiO2 of 50%. Her white cell count is at 10.9 with a hemoglobin of 11.3. Sodium is at 136 with a potassium level of 3.3. BUN is at 12 with a creatinine of 0.3. Glucose is 103. The patient remains on Decadron 6 mg IV every 24 hours. She remains on therapeutic doses of Lovenox 1 mg subcu every 12 hours as the patient has a right lower extremity DVT that was diagnosed on 04/18/[address] angiogram also showed filling defects in the right lower lobe pulmonary artery branches. As such, the patient has been maintained on therapeutic doses of Lovenox. She is on Diflucan. She was started on Diflucan on 05/11/2021 by infectious disease. She remains on IV Protonix. She is receiving enteral feeding for nutritional support. In terms of her Covid 19 isolation, the patient was taken off of drop with isolation today. All of the cultures of been negative. The patient is awaiting although she is showing daily progress. I am giving daily basis to the family. I met the mother yesterday at the bedside. N o other significant events. No open wounds. 05/16/2021, the patient is doing very well. She is awake and alert and communicating. She continues to have significant amount of weakness although the strength in the upper extremities are improving. The legs are still weak. We managed to with gradually wean off the sedation. Noted the patient was on a combination of Precedex and fentanyl. Fentanyl was discontinued and overnight Precedex was also discontinued. This morning the patient is on no sedation. She is awake. She is watching television. She is calm and comfortable. She remains on a pressure control mode of mechanical ventilation. This morning she is on assist control of 20, pressure control of 14, FiO2 of 50% with a PEEP of 5. The patient's pulse ox is currently at 96%. The blood gases from today showed a pH of 7.47 pCO2 of 47 and pO2 of 63 and this was done and FiO2 of 50%. Chest x-ray shows no major interval change. The patient has a Shiley tracheostomy tube and the tip of the tube is sitting high in the trachea. Otherwise, no evidence of any pneumothorax. There is still diffuse breath and pulmonary infiltrates consistent with an underlying Covid 19 infection. The white cell count is at 10.4 with a hemoglobin of 11.4 and the platelet count is at 284. Renal function stable and the creatinine is at 0.4 with a BUN of 15 and a sodium level of 138. She is receiving enteral feeding for nutritional support and the patient is currently on vital high protein at the rate of 50 mL an hour. No abdominal distention. She is producing bowel movements. In terms of her steroids, the patient was dropped down to 4 mg of Decadron and she remains on therapy dose of Lovenox at 100 mg subcu every 12 hours. No significant edema in lower extremities. She is receiving daily Lasix doses. The neck fluid balance over the past 24 hours has been negative for 83 mL. Otherwise, no other significant events overnight. Family has been at the bedside on multiple occas ions. She remains on a low dose of Seroquel for delirium and agitation. Cerebral is being used at a dose of 50 mg by mouth twice a day. She remains on a NovoLog SS coverage. She is also on a thyroid hormone replacement. 05/17/2021, the patient is awake and alert. She is off sedation. She is still weak. She is able to move all 4 extremities. She is following commands and answering questions. She was on pressure control mode of mechanical ventilation throughout the day yesterday and the pressure control was weaned down to 12 with a PEEP of 5 and FiO2 of 40% and a rate of 12. Blood gases from today shows a component of metabolic alkalosis. PH is at 7.5 with a pCO2 of 41 and a pO2 of 74. Chest x-ray findings are unchanged. Patient is hemodynamically stable. The patient is afebrile. The patient is receiving enteral feeding for nutritional support and she remains onH at the rate of 55 mL an hour. She remains on therapeutic doses of Eliquis 5 mg by mouth twice a day. No other complaints otherwise for now. Blood sugars under good control. She is on high dose of thyroid hormone replacement. White cell count currently is at 9.8 with a hemoglobin of 10.3 and platelets of 253. Sodium is at 137, creatinine is at 0.42 with a BUN of 13. Serum bicarb is at 31. Fluid balance over the past 24 hours has been in the order of -2.2 L. Note that the patient was checked on her weaning parameters. Her rapid shallow breathing index was ranging between 70 and 90. This was checked on a pressure support of 5 and a PEEP of 5. I subsequently switched her to a pressure support of 10 and a PEEP of 5. She is able to generate adequate tidal volumes for now. She is a bit tachypneic and her respiratory rate is in the low 30s. We'll continue to follow her progress. She'll be kept on a pressure support mode of mechanical ventilation for a few hours on a trial basis. Objective - Vital Signs Vital signs: Vital Signs Temp 98.5 F 05/17/21 08:00 Pulse 105 H 05/17/21 09:00 Resp 28 H 05/17/21 09:00 BP 93/55 05/17/21 09:00 Pulse Ox 96 05/17/21 09:00 Intake & Output 05/16/21 05/17/21 05/17/21 18:59 06:59 18:59 Intake Total 949 913 234 Output Total 1480 1150 200 Balance -531 -237 34 Weight 101 kg Intake: IV 299 253 69 Pressure Bag 39 33 9 Sodium Chloride 0.9% 1, 260 220 60 000 ml @ 20 mls/hr IV . Q24H [facility] Rx#:[id number] Tube Feeding 650 570 165 Other 90 Output: Urine 1480 1150 200 Other: Voiding Method Indwelling Catheter Indwelling Catheter Indwelling Catheter ABP, PAP, CO, CI - Last Documented Arterial Blood Pressure 159/67 - Exam Patient is intubated on a mechanical ventilator. She is sedated , calm and comfortable, responsive, currently off sadation She has a Shiley #8 tr acheostomy tube in place for now. Head exam was generally normal. There was no scleral icterus or corneal arcus. Mucous membranes were moist. Neck was supple and without jugular venous distension, thyromegaly, or carotid bruits. Carotids were easily palpable bilaterally. There was no adenopathy. The patient has a tracheostomy tube Shiley #8 Lungs sounds are diminished in the patient's crackles in the mid and lower lung field bilaterally Cardiac exam revealed the PMI to be normally situated and sized. The rhythm was regular and no extrasystoles were noted during several minutes of auscultation. The first and second heart sounds were normal and physiologic splitting of the second heart sound was noted. There were no murmurs, rubs, clicks, or gallops. Abdominal exam revealed normal bowel sounds. The abdomen was soft, non-tender, and without masses, organomegaly, or appreciable enlargement of the abdominal aorta. The patient also has a active in place. Examination of the extremities revealed easily palpable radial, femoral and pedal pulses. There was no cyanosis, clubbing or edema. Examination of the skin revealed no evidence of significant rashes, suspicious appearing nevi or other concerning lesions. Neurologically, the patient is awake . Pupils are equal and reactive to light. - Labs CBC & Chem 7: 05/17/21 05:20 05/17/21 05:20 Labs: Abnormal Lab Results - Last 24 Hours (Table) 05/16/21 05/17/21 05/17/21 Range/Units 17:41 05:20 05:20 RBC 3.29 L (3.80-5.40) m/uL Hgb 10.3 L (11.4-16.0) gm/dL Hct 31.9 L (34.0-46.0) % ABG pH (7.35-7.45) ABG pO2 (83-108) mmHg ABG HCO3 (21-25) mmol/L ABG Total CO2 (19-24) mmol/L Carbon Dioxide 31 H (22-30) mmol/L Creatinine 0.42 L (0.52-1.04) mg/dL Glucose 111 H (74-99) mg/dL POC Glucose (mg/dL) 100 H (75-99) mg/dL 05/17/21 05/17/21 Range/Units 05:31 05:38 RBC (3.80-5.40) m/uL Hgb (11.4-16.0) gm/dL Hct (34.0-46.0) % ABG pH 7.50 H (7.35-7.45) ABG pO2 74 L (83-108) mmHg ABG HCO3 32 H (21-25) mmol/L ABG Total CO2 33 H (19-24) mmol/L Carbon Dioxide (22-30) mmol/L Creatinine (0.52-1.04) mg/dL Glucose (74-99) mg/dL POC Glucose (mg/dL) 111 H (75-99) mg/dL Assessment and Plan Plan: 1 acute hypoxic respiratory failure secondary to COVID 19 pneumonia. Not been v accinated for COVID 19. The patient has bilateral pulmonary infiltrates due to progression of her COVID 19 infection. She was originally symptomatic on 04/11/2021. She was diagnosed having COVID 19 infection on 04/13/2021 and the patient had a brief hospitalization and the patient was discharged home on 04/18/2021 after being treated as an inpatient basis. She presented back with acute hypoxic respiratory failure with signs of ARDS. The patient progressed very quickly and she was brought into the intensive care unit and she was intubated on 04/27/2021 and diagnosed PE on therapeutic dose of Lovenox regarding a possible filling defect in the right lower lobe pulmonary artery branch. The patient also has a DVT in her left popliteal vein. The patient is also post-tracheostomy tube insertion on 05/10/2021 and the patient has a #[address] tube in [address]. The patient is gradually improving. The patient is gradually getting more strong. She is off sedatives for now. She is on a pressure control mode of mechanical ventilation. Chest x-ray findings are stable. The blood gases showing a component of metabolic alkalosis. The patient has been diuresed adequately and the patient been negative fluid balance. She is afebrile. Weaning parameters were checked. Rapid shallow breathing index was adequate and the patient is currently on a pressure support of 10 and a PEEP of 5. 2 acute hypoxic respiratory failure secondary to above 3 acute right lower lobe pulmonary embolism secondary to Covid 19 infection. the patient is currently on therapeutic Eliquis and patient also has a left lower extremity DVT 4 history of hypothyroidism 5 history of marijuana smoking 6 enteral feeding for nutritional support via PEG tube Plan Patient is currently off sedation Switch this patient a pressure support of 10 and a PEEP of 5 and check daily weaning parameters. If she gets tired or she becomes tachypneic, we'll switch her back on a pressure control mode of mechanical ventilation. Continue anticoagulation with Eliquis 5 mg by mouth twice a day Continue Decadron drop the dose to 2 mg daily Discontinue the Lovenox since was this patient to 5 mg of Eliquis twice a day Continue vitamin C and vitamin D and zinc supplements chest x-ray is stable Continue enteral feeding for nutritional support Diamox 250 mg IV 2 doses every 12 hours Discontinue Lasix Physical therapy and passive range of motion Updated the yesterday. We'll continue to follow. Condition is still critical. Evaluation was done more than 30 minutes. The plan is to gradually wean off the PEEP and gradually reduce the sedation for now for any improvement level of alertness. Rest of the treatment will be kept unchanged for now. We'll continue to follow. Condition is still critical. Time with Patient: Greater than 30
[2021-05-17] MEDS: SODIUM CHLORIDE 0.9% 500 ML 500 ML IV SCH (10:41)
[2021-05-17] MEDS: HYDROmorphone 1 MG/ML 1 ML SYRINGE IVP PRN (22:33)
--- NOTE | 2021-05-17 23:24 | P.PN ---
Subjective Progress Note Date: 05/16/21 Principal diagnosis: Pneumonia and bacteremia Interval history : Patient is a 46-year-old -[place] female with admission diagnoses of Acute COVID-19 pneumonia subsequently admission to the hospital with worsening respiratory status has been diagnosed with a DVT and PE. The patient is status post trach and PEG tube placement as of 05/10/2021 On today's evaluation that is 05/16/2021, The patient remains to be afebrile, the patient is hemodynamically stable not requiring any pressor support , the patient FiO2 is down to 40 %, no purulent secretion through the ET has been reported by the nursing staff, patient has been tolerating tube feeds and no diarrhea has been reported, patient is awake and is following commands Objective - Vital Signs Vital signs: Vital Signs Temp 99.4 F 05/16/21 16:00 Pulse 85 05/16/21 16:00 Resp 32 H 05/16/21 16:00 BP 93/55 05/16/21 16:00 Pulse Ox 97 05/16/21 16:00 Intake & Output 05/15/21 05/16/21 05/16/21 18:59 06:59 18:59 Intake Total 4257.024 1666.012 730 Output Total 3852 850 1005 Balance -2525.027 271.012 -275 Weight 106.8 kg 102.2 kg Intake: IV 276 273 230 Pressure Bag 36 33 30 Sodium Chloride 0.9% 1, 240 240 200 000 ml @ 20 mls/hr IV . Q24H [facility] Rx#:[id number] Intake, IV Titration 330.973 158.012 Amount Dexmedetomidine/0.9% NaCl 199.700 100.090 (Pmx) 400 mcg In Empty Bag 1 bag @ 0.2 MCG/KG/HR 5.38 mls/hr IV .[id number] [facility] Rx#:[id number] fentaNYL (PF) 2,500 mcg 131.273 57.922 In Sodium Chloride 0.9% 200 ml @ 0.5 MCG/KG/HR 5. 23 mls/hr IV .Q24H [facility] Rx #:[id number] Tube Feeding 600 600 500 Other 120 90 Output: Urine 3850 850 1005 Stool 2 Other: Voiding Method Indwelling Catheter Indwelling Catheter Indwelling Catheter ABP, PAP, CO, CI - Last Documented Arterial Blood Pressure 131/50 - Exam GENERAL DESCRIPTION: Middle-aged female intubated on the vent RESPIRATORY SYSTEM: Unlabored breathing , decreased breath sounds at bases, no wheeze HEART: S1 S2 regular rate and rhythm ,no loud murmurs ABDOMEN: Soft , no tenderness EXTREMITIES: 2+ edema feet - Labs CBC & Chem 7: 05/17/21 05:20 05/17/21 05:20 Labs: Abnormal Lab Results - Last 24 Hours (Table) 05/15/21 05/15/21 05/16/21 Range/Units 17:34 23:50 05:25 RBC (3.80-5.40) m/uL ABG pH 7.47 H (7.35-7.45) ABG pCO2 47 H (35-45) mmHg ABG pO2 63 L (83-108) mmHg ABG HCO3 34 H (21-25) mmol/L ABG Total CO2 36 H (19-24) mmol/L ABG O2 Saturation 92.6 L (94-97) % Carbon Dioxide (22-30) mmol/L Creatinine (0.52-1.04) mg/dL POC Glucose (mg/dL) 114 H 112 H (75-99) mg/dL 05/16/21 05/16/21 Range/Units 05:35 05:35 RBC 3.65 L (3.80-5.40) m/uL ABG pH (7.35-7.45) ABG pCO2 (35-45) mmHg ABG pO2 (83-108) mmHg ABG HCO3 (21-25) mmol/L ABG Total CO2 (19-24) mmol/L ABG O2 Saturation (94-97) % Carbon Dioxide 33 H (22-30) mmol/L Creatinine 0.44 L (0.52-1.04) mg/dL POC Glucose (mg/dL) (75-99) mg/dL Assessment and Plan (1) Positive blood culture Current Visit: Yes Status: Acute Code(s): R78.81 - BACTEREMIA SNOMED Code(s): 674808697 (2) COVID-19 Current Visit: Yes Status: Acute Code(s): U07.1 - COVID-19 SNOMED Code(s): 867453645 Plan: 1-patient with a positive blood culture which has been finalized and staph epi likely skin contaminant, Repeat blood culture has been negative so far, patient is being monitored off vancomycin 2-acute respiratory failure which is multifactorial possible component of pneumonia, Sputum has been usual respiratory pat, patient has completed a course of IV cefepime, the patient White count is normal and the patient is currently being monitor closely off antibiotic therapy Time with Patient: Less than 30
--- NOTE | 2021-05-17 23:26 | P.PN ---
Subjective Progress Note Date: 05/17/21 Principal diagnosis: Pneumonia and bacteremia Interval history : Patient is a 46-year-old -[place] female with admission diagnoses of Acute COVID-19 pneumonia subsequently admission to the hospital with worsening respiratory status has been diagnosed with a DVT and PE. The patient is status post trach and PEG tube placement as of 05/10/2021 On today's evaluation that is 05/17/2021, The patient continues to be afebrile, the patient is hemodynamically stable not requiring any pressor support , the patient FiO2 is stable at 40 %, no purulent secretion through the ET or diarrhea has been reported by the nursing staff, patient is awake and is following commands Objective - Vital Signs Vital signs: Vital Signs Temp 100.2 F H 05/17/21 20:00 Pulse 98 05/17/21 23:00 Resp 18 05/17/21 23:00 BP 93/55 05/17/21 22:00 Pulse Ox 96 05/17/21 23:00 Intake & Output 05/17/21 05/17/21 05/18/21 06:59 18:59 06:59 Intake Total 913 936 390 Output Total 1150 2710 850 Balance -237 -1774 -460 Weight 101 kg 101 kg Intake: IV 253 276 115 Pressure Bag 33 36 15 Sodium Chloride 0.9% 1, 220 240 100 000 ml @ 20 mls/hr IV . Q24H [facility] Rx#:[id number] Tube Feeding 570 660 275 Other 90 Output: Urine 1150 2710 850 Other: Voiding Method Indwelling Catheter Indwelling Catheter Indwelling Catheter # Bowel Movements 1 ABP, PAP, CO, CI - Last Documented Arterial Blood Pressure 123/60 - Exam GENERAL DESCRIPTION: Middle-aged female intubated on the vent RESPIRATORY SYSTEM: Unlabored breathing , decreased breath sounds at bases, no wheeze HEART: S1 S2 regular rate and rhythm ,no loud murmurs ABDOMEN: Soft , no tenderness EXTREMITIES: 2+ edema feet - Labs CBC & Chem 7: 05/17/21 05:20 05/17/21 05:20 Labs: Abnormal Lab Results - Last 24 Hours (Table) 05/17/21 05/17/21 05/17/21 Range/Units 05:20 05:20 05:31 RBC 3.29 L (3.80-5.40) m/uL Hgb 10.3 L (11.4-16.0) gm/dL Hct 31.9 L (34.0-46.0) % ABG pH (7.35-7.45) ABG pO2 (83-108) mmHg ABG HCO3 (21-25) mmol/L ABG Total CO2 (19-24) mmol/L Carbon Dioxide 31 H (22-30) mmol/L Creatinine 0.42 L (0.52-1.04) mg/dL Glucose 111 H (74-99) mg/dL POC Glucose (mg/dL) 111 H (75-99) mg/dL 05/17/21 Range/Units 05:38 RBC (3.80-5.40) m/uL Hgb (11.4-16.0) gm/dL Hct (34.0-46.0) % ABG pH 7.50 H (7.35-7.45) ABG pO2 74 L (83-108) mmHg ABG HCO3 32 H (21-25) mmol/L ABG Total CO2 33 H (19-24) mmol/L Carbon Dioxide (22-30) mmol/L Creatinine (0.52-1.04) mg/dL Glucose (74-99) mg/dL POC Glucose (mg/dL) (75-99) mg/dL Assessment and Plan (1) Positive blood culture Current Visit: Yes Status: Acute Code(s): R78.81 - BACTEREMIA SNOMED Code(s): 254530721 (2) COVID-19 Current Visit: Yes Status: Acute Code(s): U07.1 - COVID-19 SNOMED Code(s): 734649160 Plan: 1-patient with a positive blood culture which has been finalized and staph epi likely skin contaminant, Repeat blood culture has been negative so far, patient is being monitored off vancomycin 2-acute respiratory failure which is multifactorial possible component of pneumonia, Sputum has been usual respiratory pat, patient has completed a course of IV cefepime, the patient White count is normal and the patient currently doing well off antibiotic therapy, the patient's son was at the bedside questions were answered Time with Patient: Less than 30
[2021-05-17] MEDS: ONDANSETRON 4 MG/2 ML VIAL IVP PRN (23:40)
[2021-05-18 00:02] LABS: Glucose,Whole Blood 86 mg/dL (75-99)
[2021-05-18] MEDS: fentaNYL (PF) 2,500 MCG in SODIUM CHLORIDE 0.9% 200 ML IV SCH (02:04)
[2021-05-18 04:42] LABS: African American GFR (CKD) >90 (>60 ml/min/1.73 sqM); Anion Gap 5 mmol/L; Blood Urea Nitrogen 13 mg/dL (7-17); Calcium 9.4 mg/dL (8.4-10.2); Carbon Dioxide 25 mmol/L (22-30); Chloride 109 mmol/L (98-107); Glucose 107 mg/dL (74-99); Non-African American GFR(CKD) >90 (>60 ml/min/1.73 sqM); Potassium 3.4 mmol/L (3.5-5.1); Sodium 139 mmol/L (137-145)
[2021-05-18] MEDS: POTASSIUM CHLORIDE 20 MEQ in WATER FOR INJECTION 1 100ML.BAG IVPB SCH ×2 (05:32→06:24)
[2021-05-18 05:51] LABS: ABG Base Excess 0.9 mmol/L; ABG HCO3 25 mmol/L (21-25); ABG Oxygen Saturation 98.1 % (94-97); ABG PCO2 37 mmHg (35-45); ABG PH 7.44 (7.35-7.45); ABG PO2 98 mmHg (83-108); ABG TCO2 26 mmol/L (19-24)
[2021-05-18 05:52] LABS: Allen Test Performed? No
[2021-05-18] MEDS: LEVOTHYROXINE 112 MCG TAB PO SCH (06:23)
[2021-05-18] MEDS: ALBUTEROL HFA INHALER INHALATION SCH ×4 (07:51→20:02)
--- NOTE | 2021-05-18 08:53 | P.PN ---
Subjective Progress Note Date: 05/18/21 45-year-old -[place] female patient who is currently in the hospital for Covid 19 related pneumonia. The patient was intubated and placed on mechanical ventilator due to extensive pneumonia/ARDS. Subsequently, the patient was given a tracheostomy tube on 05/10/2021. This morning, the patient is on a combination of sedation. The patient is on Precedex running at 1 mcg/kg per minute and the patient is also on fentanyl at 11.5 mcg/kg/h. The patient is off paralytics. She is responsive. She follows some simple commands. Her ventilator settings are currently an assist-control mode at the rate of 28, pressure control of 20, inspiratory time of 0.9 seconds, PEEP of 12 and FiO2 of 40%. Peak airway pressure is 33. The chest x-ray is showing diffuse bilateral pulmonary infiltrates. The tracheostomy tube Is high in the trachea. The patient has a PICC line in the right upper extremity. Meanwhile, the blood gases from today shows a pH of 7.44 with a pCO2 of 46 and pO2 of 87 and this was done and FiO2 of 40%. The patient remains on Decadron 6 mg IV every 24 hours. The patient is also on Lovenox 100 mg subcu twice a day as the patient was found to have a right lower extremity DVT on 04/28/2021 and since then the patient has been on therapeutic dose of Lovenox for note that she also had pulmonary embolism as evident on the CT angiogram that was obtained on 04/24/2021. CT an giogram showed right lower lobe pulmonary artery branch segmental filling defects. On today's evaluation, her white cell thousand 12 with a hemoglobin of 11.4 and a platelet count of 305. Sodium is at 138 with a potassium level of 3.8, chloride is 106 bicarb is at 30 with a BUN of 10 and a creatinine of 0.4. The patient is receiving enteral feeding for insurance support. She is currently on vital high protein at a rate of 20 mL an hour. She is on NovoLog sliding scale coverage. She is on Synthroid 112 g on a daily basis. She is also receiving Seroquel 50 mg by mouth twice a day for increased delirium/agitation. Otherwise, no other significant events overnight. All of the cultures of been negative with except of 1 blood culture that was obtained on 04/27/2021 and turning machine set up operator to be staph epidermidis. She is on Diflucan for oropharyngeal candidiasis 05/14/2021, I'm seeing the patient for a follow-up. The patient is arousable and awake and she's communicating. He is unhappy and slightly anxious. She is on Precedex running at 0.7 mcg/kg/m and she is also on fentanyl running at 1 mcg/kg/h. She remains on a mechanical ventilator and she is quite comfortable at this point in time. The morning ventilator settings include an assist- control at the rate of 28 pressure control mode with a pressure control of 20, PEEP of 8, FiO2 of 40% with an inspiratory time of 0.9. The blood gases from this morning shows a pH of 7.48 with a pCO2 of 42 and pO2 of 68. Chest x-ray from this morning shows no major interval change. Tracheostomy tube remains in a good location and the patient has a #[address] No significant orotracheal secretions at this point in time. The patient remains hemodynamically stable. Pulse ox is above 88%. Cardiac rhythm is sinus. She has a PEG tube and she is receiving enteral feeding for nutritional support and the patient is currently on vital high protein at the rate of 39 mL an hour. She is stooling. She has a PICC line in her right upper extremity. In terms of her Covid 19 therapy, the patient is currently on Decadron 6 g IV every 24 hours. She remains on therapeutic dose of Lovenox 100 mg subcu every 12 hours as the patient was found to have a right lower extremity DVT on and subsequently there was also pulmonary embolism involving the right lower lobe pulmonary artery branches with segmental filling defects. Otherwise, she is doing well. The white cell count is at 10.2 with a hemoglobin of 11. The BUN is at 11 with a creatinine of 0.4 and sodium level is at 137. Blood sugar is at 119. She remains on Diflucan for oropharyngeal candidiasis. No other positive blood cultures. No other significant events overnight. 05/15/2021, the patient is awake. She remains on Precedex running at 1 mcg/kg/m and the patient is also on fentanyl at 1 mcg/kg/h. Despite all this, she is wide awake. She is responsive. She follows commands. She will go 4 extremities without any limitation. Her breathing is nonlabored. She was on a pressure control mode of mechanical ventilation and earlier this morning, she wasn't a pressure control of 16, PEEP of 8, FiO2 of 50% and a rate of 26. The chest x-ray was unchanged and showed diffuse bilateral pulmonary infiltrates and the Shiley tracheostomy she was sitting very high trachea. Nevertheless, the patient was returning her volumes. The chest x-ray still showing diffuse infiltration. Her oxidation is improved and the patient's most recent blood gas showed a pH of 7.47 with a pCO2 of 46 and pO2 114 and this was done and FiO2 of 50%. Her white cell count is at 10.9 with a hemoglobin of 11.3. Sodium is at 136 with a potassium level of 3.3. BUN is at 12 with a creatinine of 0.3. Glucose is 103. The patient remains on Decadron 6 mg IV every 24 hours. She remains on therapeutic doses of Lovenox 1 mg subcu every 12 hours as the patient has a right lower extremity DVT that was diagnosed on 04/18/[address] angiogram also showed filling defects in the right lower lobe pulmonary artery branches. As such, the patient has been maintained on therapeutic doses of Lovenox. She is on Diflucan. She was started on Diflucan on 05/11/2021 by infectious disease. She remains on IV Protonix. She is receiving enteral feeding for nutritional support. In terms of her Covid 19 isolation, the patient was taken off of drop with isolation today. All of the cultures of been negative. The patient is awaiting although she is showing daily progress. I am giving daily basis to the family. I met the mother yesterday at the bedside. N o other significant events. No open wounds. 05/16/2021, the patient is doing very well. She is awake and alert and communicating. She continues to have significant amount of weakness although the strength in the upper extremities are improving. The legs are still weak. We managed to with gradually wean off the sedation. Noted the patient was on a combination of Precedex and fentanyl. Fentanyl was discontinued and overnight Precedex was also discontinued. This morning the patient is on no sedation. She is awake. She is watching television. She is calm and comfortable. She remains on a pressure control mode of mechanical ventilation. This morning she is on assist control of 20, pressure control of 14, FiO2 of 50% with a PEEP of 5. The patient's pulse ox is currently at 96%. The blood gases from today showed a pH of 7.47 pCO2 of 47 and pO2 of 63 and this was done and FiO2 of 50%. Chest x-ray shows no major interval change. The patient has a Shiley tracheostomy tube and the tip of the tube is sitting high in the trachea. Otherwise, no evidence of any pneumothorax. There is still diffuse breath and pulmonary infiltrates consistent with an underlying Covid 19 infection. The white cell count is at 10.4 with a hemoglobin of 11.4 and the platelet count is at 284. Renal function stable and the creatinine is at 0.4 with a BUN of 15 and a sodium level of 138. She is receiving enteral feeding for nutritional support and the patient is currently on vital high protein at the rate of 50 mL an hour. No abdominal distention. She is producing bowel movements. In terms of her steroids, the patient was dropped down to 4 mg of Decadron and she remains on therapy dose of Lovenox at 100 mg subcu every 12 hours. No significant edema in lower extremities. She is receiving daily Lasix doses. The neck fluid balance over the past 24 hours has been negative for 83 mL. Otherwise, no other significant events overnight. Family has been at the bedside on multiple occas ions. She remains on a low dose of Seroquel for delirium and agitation. Cerebral is being used at a dose of 50 mg by mouth twice a day. She remains on a NovoLog SS coverage. She is also on a thyroid hormone replacement. 05/17/2021, the patient is awake and alert. She is off sedation. She is still weak. She is able to move all 4 extremities. She is following commands and answering questions. She was on pressure control mode of mechanical ventilation throughout the day yesterday and the pressure control was weaned down to 12 with a PEEP of 5 and FiO2 of 40% and a rate of 12. Blood gases from today shows a component of metabolic alkalosis. PH is at 7.5 with a pCO2 of 41 and a pO2 of 74. Chest x-ray findings are unchanged. Patient is hemodynamically stable. The patient is afebrile. The patient is receiving enteral feeding for nutritional support and she remains onH at the rate of 55 mL an hour. She remains on therapeutic doses of Eliquis 5 mg by mouth twice a day. No other complaints otherwise for now. Blood sugars under good control. She is on high dose of thyroid hormone replacement. White cell count currently is at 9.8 with a hemoglobin of 10.3 and platelets of 253. Sodium is at 137, creatinine is at 0.42 with a BUN of 13. Serum bicarb is at 31. Fluid balance over the past 24 hours has been in the order of -2.2 L. Note that the patient was checked on her weaning parameters. Her rapid shallow breathing index was ranging between 70 and 90. This was checked on a pressure support of 5 and a PEEP of 5. I subsequently switched her to a pressure support of 10 and a PEEP of 5. She is able to generate adequate tidal volumes for now. She is a bit tachypneic and her respiratory rate is in the low 30s. We'll continue to follow her progress. She'll be kept on a pressure support mode of mechanical ventilation for a few hours on a trial basis. 05/18/2021, the patient is awake and alert and she is communicating. She is quite comfortable at this point in time. Overnight, she had some issues with anxiety. She also wanted to go back to a pressure support mode of mechanical ventilation which she felt is much easier to breathe on. At that point, I put the patient on some low-dose Precedex. Precedex is still running at 0.2 mcg/kg per minute. She is currently on a pressure support of 10 and a PEEP of 5. She is able to generate a tidal volume of around 450 and the respiratory rate is high 20s and low 30s. Her FiO2 is currently at 40%. Pulse ox is 95%. Blood gases show a pH of 7.44 with a pCO2 of 37 and pO2 of 98. No chest x-ray was done today. The patient is doing well. No significant orotracheal secretions. Her motor functions are improving. She is able to raise her arms against gravity. She is able to wiggle her toes pH is still weak although there is obvious and ongoing improvement in her motor functions bilaterally. Mentally, she is awake and she is only alert and she is aware of her surroundings. She is in a negative fluid balance of 700 mL over the past 24 hours. The patient continues to receive enteral feeding for nutritional support. She remains on Eliquis 5 mg by mouth twice a day regarding a DVT of the lower extremity and the pulmonary embolism. She remains on Decadron which is at a dose of 2 mg on a da venu basis and this being gradually weaned off. No other significant events overnight. Objective - Vital Signs Vital signs: Vital Signs Temp 98.2 F 05/18/21 04:00 Pulse 116 H 05/18/21 07:00 Resp 32 H 05/18/21 07:00 BP 93/55 05/18/21 00:07 Pulse Ox 93 L 05/18/21 07:00 Intake & Output 05/17/21 05/18/21 05/18/21 18:59 06:59 18:59 Intake Total 936 1026 78 Output Total 2710 1720 100 Balance -1774 -694 -22 Weight 101 kg 100.1 kg Intake: IV 276 276 23 Pressure Bag 36 36 3 Sodium Chloride 0.9% 1, 240 240 20 000 ml @ 20 mls/hr IV . Q24H [facility] Rx#:[id number] Intake, IV Titration 0 Amount Dexmedetomidine/0.9% NaCl 0 (Pmx) 400 mcg In Empty Bag 1 bag @ 0.2 MCG/KG/HR 5.38 mls/hr IV .[id number] [facility]UREEN Rx#:[id number] Tube Feeding 660 660 55 Other 90 Output: Urine 2710 1720 100 Other: Voiding Method Indwelling Catheter Indwelling Catheter Indwelling Catheter # Bowel Movements 1 ABP, PAP, CO, CI - Last Documented Arterial Blood Pressure 135/82 - Exam Patient is intubated on a mechanical ventilator. She is sedated , calm and comfortable, responsive, currently off sadation She has a Shiley #[address] for now. Head exam was generally normal. There was no scleral icterus or corneal arcus. Mucous membranes were moist. Neck was supple and without jugular venous distension, thyromegaly, or carotid bruits. Carotids were easily palpable bilaterally. There was no adenopathy. The patient has a tracheostomy tube Shiley #8 Lungs sounds are diminished in the patient's crackles in the mid and lower lung field bilaterally Cardiac exam revealed the PMI to be normally situated and sized. The rhythm was regular and no extrasystoles were noted during several minutes of auscultation. The first and second heart sounds were normal and physiologic splitting of the second heart sound was noted. There were no murmurs, rubs, clicks, or gallops. Abdominal exam revealed normal bowel sounds. The abdomen was soft, non-tender, and without masses, organomegaly, or appreciable enlargement of the abdominal aorta. The patient also has a active in place. Examination of the extremities revealed easily palpable radial, femoral and pedal pulses. There was no cyanosis, clubbing or edema. Examination of the skin revealed no evidence of significant rashes, suspicious appearing nevi or other concerning lesions. Neurologically, the patient is awake . Pupils are equal and reactive to light. - Labs CBC & Chem 7: 05/17/21 05:20 05/18/21 04:05 Labs: Abnormal Lab Results - Last 24 Hours (Table) 05/18/21 05/18/21 Range/Units 04:05 05:44 ABG Total CO2 26 H (19-24) mmol/L ABG O2 Saturation 98.1 H (94-97) % Potassium 3.4 L (3.5-5.1) mmol/L Chloride 109 H (98-107) mmol/L Creatinine 0.49 L (0.52-1.04) mg/dL Glucose 107 H (74-99) mg/dL Assessment and Plan Plan: 1 acute hypoxic respiratory failure secondary to COVID 19 pneumonia. Not been vaccinated for COVID 19. The patient has bilateral pulmonary infiltrates due to progression of her COVID 19 infection. She was originally symptomatic on 2020. She was diagnosed having COVID 19 infection on 04/13/2021 and the patient had a brief hospitalization and the patient was discharged home on 04/18/2021 after being treated as an inpatient basis. She presented back with acute hypoxic respiratory failure with signs of ARDS. The patient progressed very quickly and she was brought into the intensive care unit and she was intubated on 04/27/2021 and diagnosed PE on therapeutic dose of Lovenox regarding a possible filling defect in the right lower lobe pulmonary artery branch. The patient also has a DVT in her left popliteal vein. The patient is also post- tracheostomy tube insertion on 05/10/2021 and the patient has a #[address] tube in [address]. The patient is gradually improving. The patient has been on pressure support mode of mechanical ventilation overnight. She is currently on a pressure support of 10 and a PEEP of 5. She continues to have some increased minute ventilation of around 14 L per minute. As such, no weaning will be done at the pressure support today. We'll going to monitor this very closely. Her respiratory rate is still elevated. It could be related to anxiety. It could be related to residual Covid 19 related pneumonia/ARDS. The patient will be kept on same treatment for now. Wean off Precedex and introduce Xanax for anxiety. 2 acute hypoxic respiratory failure secondary to above 3 acute right lower lobe pulmonary embolism secondary to Covid 19 infection. the patient is currently on therapeutic Eliquis and patient also has a left lower extremity DVT 4 history of hypothyroidism 5 history of marijuana smoking 6 enteral feeding for nutritional support via PEG tube Plan Patient is currently off sedation Keep the patient a pressure support of 10 and a PEEP of 5 and check daily weaning parameters. Stop the Precedex and put the patient on Xanax 0.5 mg every 6 hours on an as- needed basis Continue anticoagulation with Eliquis 5 mg by mouth twice a day Continue Decadron drop the dose to 2 mg daily Eliquis 5 mg twice a day Continue vitamin C and vitamin D and zinc supplements chest x-ray is stable Continue enteral feeding for nutritional support Diamox 250 mg IV 2 doses every 12 hours yesterday and there is improvement and acid base status and the serum bicarb is down to 25 and the pH is at currently at 7.44. Discontinue Lasix and no need for Lasix for today. Physical therapy and passive range of motion Updated the yesterday. We'll continue to follow. Condition is still critical. Evaluation was done more than 30 minutes.
[2021-05-18] MEDS: CHLORHEXIDINE GLUCONATE 15 ML CUP MUCOUS MEM SCH ×2 (09:30→20:21)
[2021-05-18] MEDS: APIXABAN 5 MG TAB PO SCH ×2 (09:31→20:21)
[2021-05-18] MEDS: DEXAMETHASONE SOD PHOSPHATE 4 MG/ML 1 ML VIAL IVP SCH (09:31)
[2021-05-18] MEDS: QUEtiapine 50 MG TAB PO SCH ×2 (09:31→20:21)
[2021-05-18] MEDS: ZINC SULFATE 220 MG CAP PO SCH (09:32)
[2021-05-18] MEDS: ASCORBIC ACID 500 MG TAB PO SCH (09:32)
[2021-05-18] MEDS: bisacodyL 10 MG SUPP RECTAL SCH (09:32)
[2021-05-18] MEDS: CHOLECALCIFEROL 125 MCG (5000 IU) TABLET PO SCH (09:33)
[2021-05-18] MEDS: PANTOPRAZOLE 40 MG/10 ML VIAL IVP SCH (09:33)
[2021-05-18] MEDS: ALPRAZolam 0.5 MG TAB PO PRN ×3 (09:36→20:21)
[2021-05-18] MEDS: SODIUM CHLORIDE 0.9% 500 ML 500 ML IV SCH (15:27)
--- NOTE | 2021-05-18 16:37 | PN ---
PROGRESS NOTE DATE OF SERVICE: 05/17/2021 CHIEF COMPLAINT: COVID pneumonia and respiratory failure. HISTORY OF PRESENT ILLNESS: This lady is unchanged. She remains on the ventilator. She is awake, but not fully alert. She is still triggering the ventilator. Chest x-ray continues to reveal generalized and severe infiltrates which do not seem to be improving. PHYSICAL EXAMINATION: Breath sounds are heard bilaterally. Her cardiac exam is normal. Vital signs are normal. She apparently is having some discomfort regarding her trach site. IMPRESSION: 1. Severe COVID pneumonia with respiratory failure. 2. Pain at the tracheostomy site. PLAN: Analgesia for neck pain when necessary. Otherwise no changes. MMODL / IJN: [id number] /
[2021-05-18] MEDS: ACETAMINOPHEN TAB 325 MG TAB PO PRN (16:38)
--- NOTE | 2021-05-18 17:01 | PN ---
PROGRESS NOTE DATE OF SERVICE: 05/18/2021 CHIEF COMPLAINT: COVID pneumonia with respiratory failure. HISTORY OF PRESENT ILLNESS: This patient has been stable since yesterday. There has been no significant interval change. PHYSICAL EXAM: Her vital signs remain normal. She remains afebrile. She remains on the ventilator via her tracheostomy. PHYSICAL EXAMINATION: Vital signs are normal. Cardiac exam is normal. The chest is clear. IMPRESSION: COVID pneumonia with respiratory failure. PLAN: No change in program at this time. Prognosis is guarded, given that there is very little improvement in her chest x-ray and she remains on the ventilator. MMODL / IJN: [id number] /
[2021-05-18] MEDS: ONDANSETRON 4 MG/2 ML VIAL IVP PRN (20:21)
[2021-05-19] MEDS ORDERED: LORazepam 2 MG/ML INJ IV STA (00:05)
[2021-05-19] MEDS: HYDROmorphone 1 MG/ML 1 ML SYRINGE IVP PRN (00:55)
[2021-05-19] MEDS: fentaNYL (PF) 2,500 MCG in SODIUM CHLORIDE 0.9% 200 ML IV SCH (02:47)
[2021-05-19 05:45] LABS: ABG Base Excess 4.2 mmol/L; ABG HCO3 28 mmol/L (21-25); ABG PCO2 39 mmHg (35-45); ABG PH 7.47 (7.35-7.45); ABG PO2 90 mmHg (83-108); ABG TCO2 29 mmol/L (19-24); Allen Test Performed? Yes
[2021-05-19] MEDS: ALPRAZolam 0.5 MG TAB PO PRN ×2 (06:41→20:02)
[2021-05-19] MEDS: LEVOTHYROXINE 112 MCG TAB PO SCH (06:41)
[2021-05-19] MEDS: ALBUTEROL HFA INHALER INHALATION SCH ×4 (07:24→19:53)
[2021-05-19] MEDS: bisacodyL 10 MG SUPP RECTAL SCH (08:10)
[2021-05-19] MEDS: DEXMEDETOMIDINE/0.9% NACL(PMX) 400 MCG in EMPTY BAG 1 BAG IV SCH (08:11)
[2021-05-19] MEDS: DEXAMETHASONE SOD PHOSPHATE 4 MG/ML 1 ML VIAL IVP SCH (08:44)
[2021-05-19] MEDS: ACETAMINOPHEN TAB 325 MG TAB PO PRN ×2 (08:45→20:02)
[2021-05-19] MEDS: QUEtiapine 50 MG TAB PO SCH ×2 (08:45→20:02)
[2021-05-19] MEDS: CHLORHEXIDINE GLUCONATE 15 ML CUP MUCOUS MEM SCH ×2 (08:45→20:03)
[2021-05-19] MEDS: ASCORBIC ACID 500 MG TAB PO SCH (08:45)
[2021-05-19] MEDS: CHOLECALCIFEROL 125 MCG (5000 IU) TABLET PO SCH (08:45)
[2021-05-19] MEDS: PANTOPRAZOLE 40 MG/10 ML VIAL IVP SCH (08:45)
[2021-05-19] MEDS: ZINC SULFATE 220 MG CAP PO SCH (08:46)
[2021-05-19] MEDS: APIXABAN 5 MG TAB PO SCH ×2 (08:46→20:02)
--- NOTE | 2021-05-19 10:38 | P.PN ---
Subjective Progress Note Date: 05/19/21 45-year-old -[place] female patient who is currently in the hospital for Covid 19 related pneumonia. The patient was intubated and placed on mechanical ventilator due to extensive pneumonia/ARDS. Subsequently, the patient was given a tracheostomy tube on 05/10/2021. This morning, the patient is on a combination of sedation. The patient is on Precedex running at 1 mcg/kg per minute and the patient is also on fentanyl at 11.5 mcg/kg/h. The patient is off paralytics. She is responsive. She follows some simple commands. Her ventilator settings are currently an assist-control mode at the rate of 28, pressure control of 20, inspiratory time of 0.9 seconds, PEEP of 12 and FiO2 of 40%. Peak airway pressure is 33. The chest x-ray is showing diffuse bilateral pulmonary infiltrates. The tracheostomy tube Is high in the trachea. The patient has a PICC line in the right upper extremity. Meanwhile, the blood gases from today shows a pH of 7.44 with a pCO2 of 46 and pO2 of 87 and this was done and FiO2 of 40%. The patient remains on Decadron 6 mg IV every 24 hours. The patient is also on Lovenox 100 mg subcu twice a day as the patient was found to have a right lower extremity DVT on 04/28/2021 and since then the patient has been on therapeutic dose of Lovenox for note that she also had pulmonary embolism as evident on the CT angiogram that was obtained on 04/24/2021. CT an giogram showed right lower lobe pulmonary artery branch segmental filling defects. On today's evaluation, her white cell thousand 12 with a hemoglobin of 11.4 and a platelet count of 305. Sodium is at 138 with a potassium level of 3.8, chloride is 106 bicarb is at 30 with a BUN of 10 and a creatinine of 0.4. The patient is receiving enteral feeding for insurance support. She is currently on vital high protein at a rate of 20 mL an hour. She is on NovoLog sliding scale coverage. She is on Synthroid 112 g on a daily basis. She is also receiving Seroquel 50 mg by mouth twice a day for increased delirium/agitation. Otherwise, no other significant events overnight. All of the cultures of been negative with except of 1 blood culture that was obtained on 04/27/2021 and glove turner to be staph epidermidis. She is on Diflucan for oropharyngeal candidiasis 05/14/2021, I'm seeing the patient for a follow-up. The patient is arousable and awake and she's communicating. He is unhappy and slightly anxious. She is on Precedex running at 0.7 mcg/kg/m and she is also on fentanyl running at 1 mcg/kg/h. She remains on a mechanical ventilator and she is quite comfortable at this point in time. The morning ventilator settings include an assist- control at the rate of 28 pressure control mode with a pressure control of 20, PEEP of 8, FiO2 of 40% with an inspiratory time of 0.9. The blood gases from this morning shows a pH of 7.48 with a pCO2 of 42 and pO2 of 68. Chest x-ray from this morning shows no major interval change. Tracheostomy tube remains in a good location and the patient has a #[address] No significant orotracheal secretions at this point in time. The patient remains hemodynamically stable. Pulse ox is above 88%. Cardiac rhythm is sinus. She has a PEG tube and she is receiving enteral feeding for nutritional support and the patient is currently on vital high protein at the rate of 39 mL an hour. She is stooling. She has a PICC line in her right upper extremity. In terms of her Covid 19 therapy, the patient is currently on Decadron 6 g IV every 24 hours. She remains on therapeutic dose of Lovenox 100 mg subcu every 12 hours as the patient was found to have a right lower extremity DVT on and subsequently there was also pulmonary embolism involving the right lower lobe pulmonary artery branches with segmental filling defects. Otherwise, she is doing well. The white cell count is at 10.2 with a hemoglobin of 11. The BUN is at 11 with a creatinine of 0.4 and sodium level is at 137. Blood sugar is at 119. She remains on Diflucan for oropharyngeal candidiasis. No other positive blood cultures. No other significant events overnight. 05/15/2021, the patient is awake. She remains on Precedex running at 1 mcg/kg/m and the patient is also on fentanyl at 1 mcg/kg/h. Despite all this, she is wide awake. She is responsive. She follows commands. She will go 4 extremities without any limitation. Her breathing is nonlabored. She was on a pressure control mode of mechanical ventilation and earlier this morning, she wasn't a pressure control of 16, PEEP of 8, FiO2 of 50% and a rate of 26. The chest x-ray was unchanged and showed diffuse bilateral pulmonary infiltrates and the Shiley tracheostomy she was sitting very high trachea. Nevertheless, the patient was returning her volumes. The chest x-ray still showing diffuse infiltration. Her oxidation is improved and the patient's most recent blood gas showed a pH of 7.47 with a pCO2 of 46 and pO2 114 and this was done and FiO2 of 50%. Her white cell count is at 10.9 with a hemoglobin of 11.3. Sodium is at 136 with a potassium level of 3.3. BUN is at 12 with a creatinine of 0.3. Glucose is 103. The patient remains on Decadron 6 mg IV every 24 hours. She remains on therapeutic doses of Lovenox 1 mg subcu every 12 hours as the patient has a right lower extremity DVT that was diagnosed on 04/18/[address] angiogram also showed filling defects in the right lower lobe pulmonary artery branches. As such, the patient has been maintained on therapeutic doses of Lovenox. She is on Diflucan. She was started on Diflucan on 05/11/2021 by infectious disease. She remains on IV Protonix. She is receiving enteral feeding for nutritional support. In terms of her Covid 19 isolation, the patient was taken off of drop with isolation today. All of the cultures of been negative. The patient is awaiting although she is showing daily progress. I am giving daily basis to the family. I met the mother yesterday at the bedside. N o other significant events. No open wounds. 05/16/2021, the patient is doing very well. She is awake and alert and communicating. She continues to have significant amount of weakness although the strength in the upper extremities are improving. The legs are still weak. We managed to with gradually wean off the sedation. Noted the patient was on a combination of Precedex and fentanyl. Fentanyl was discontinued and overnight Precedex was also discontinued. This morning the patient is on no sedation. She is awake. She is watching television. She is calm and comfortable. She remains on a pressure control mode of mechanical ventilation. This morning she is on assist control of 20, pressure control of 14, FiO2 of 50% with a PEEP of 5. The patient's pulse ox is currently at 96%. The blood gases from today showed a pH of 7.47 pCO2 of 47 and pO2 of 63 and this was done and FiO2 of 50%. Chest x-ray shows no major interval change. The patient has a Shiley tracheostomy tube and the tip of the tube is sitting high in the trachea. Otherwise, no evidence of any pneumothorax. There is still diffuse breath and pulmonary infiltrates consistent with an underlying Covid 19 infection. The white cell count is at 10.4 with a hemoglobin of 11.4 and the platelet count is at 284. Renal function stable and the creatinine is at 0.4 with a BUN of 15 and a sodium level of 138. She is receiving enteral feeding for nutritional support and the patient is currently on vital high protein at the rate of 50 mL an hour. No abdominal distention. She is producing bowel movements. In terms of her steroids, the patient was dropped down to 4 mg of Decadron and she remains on therapy dose of Lovenox at 100 mg subcu every 12 hours. No significant edema in lower extremities. She is receiving daily Lasix doses. The neck fluid balance over the past 24 hours has been negative for 83 mL. Otherwise, no other significant events overnight. Family has been at the bedside on multiple occas ions. She remains on a low dose of Seroquel for delirium and agitation. Cerebral is being used at a dose of 50 mg by mouth twice a day. She remains on a NovoLog SS coverage. She is also on a thyroid hormone replacement. 05/17/2021, the patient is awake and alert. She is off sedation. She is still weak. She is able to move all 4 extremities. She is following commands and answering questions. She was on pressure control mode of mechanical ventilation throughout the day yesterday and the pressure control was weaned down to 12 with a PEEP of 5 and FiO2 of 40% and a rate of 12. Blood gases from today shows a component of metabolic alkalosis. PH is at 7.5 with a pCO2 of 41 and a pO2 of 74. Chest x-ray findings are unchanged. Patient is hemodynamically stable. The patient is afebrile. The patient is receiving enteral feeding for nutritional support and she remains onH at the rate of 55 mL an hour. She remains on therapeutic doses of Eliquis 5 mg by mouth twice a day. No other complaints otherwise for now. Blood sugars under good control. She is on high dose of thyroid hormone replacement. White cell count currently is at 9.8 with a hemoglobin of 10.3 and platelets of 253. Sodium is at 137, creatinine is at 0.42 with a BUN of 13. Serum bicarb is at 31. Fluid balance over the past 24 hours has been in the order of -2.2 L. Note that the patient was checked on her weaning parameters. Her rapid shallow breathing index was ranging between 70 and 90. This was checked on a pressure support of 5 and a PEEP of 5. I subsequently switched her to a pressure support of 10 and a PEEP of 5. She is able to generate adequate tidal volumes for now. She is a bit tachypneic and her respiratory rate is in the low 30s. We'll continue to follow her progress. She'll be kept on a pressure support mode of mechanical ventilation for a few hours on a trial basis. 05/18/2021, the patient is awake and alert and she is communicating. She is quite comfortable at this point in time. Overnight, she had some issues with anxiety. She also wanted to go back to a pressure support mode of mechanical ventilation which she felt is much easier to breathe on. At that point, I put the patient on some low-dose Precedex. Precedex is still running at 0.2 mcg/kg per minute. She is currently on a pressure support of 10 and a PEEP of 5. She is able to generate a tidal volume of around 450 and the respiratory rate is high 20s and low 30s. Her FiO2 is currently at 40%. Pulse ox is 95%. Blood gases show a pH of 7.44 with a pCO2 of 37 and pO2 of 98. No chest x-ray was done today. The patient is doing well. No significant orotracheal secretions. Her motor functions are improving. She is able to raise her arms against gravity. She is able to wiggle her toes pH is still weak although there is obvious and ongoing improvement in her motor functions bilaterally. Mentally, she is awake and she is only alert and she is aware of her surroundings. She is in a negative fluid balance of 700 mL over the past 24 hours. The patient continues to receive enteral feeding for nutritional support. She remains on Eliquis 5 mg by mouth twice a day regarding a DVT of the lower extremity and the pulmonary embolism. She remains on Decadron which is at a dose of 2 mg on a da venu basis and this being gradually weaned off. No other significant events overnight. 05/19/2021, seeing the patient for a follow-up. The patient remains on a pressure support mode of mechanical ventilation. Throughout the day yesterday she was in a pressure support of 10 and a PEEP of 5 with an FiO2 of 40%. She is still thick Specially when she is awake. When she is sleeping, her respiratory rate was down. She has a minute ventilation of 16 L. She is able to generate tidal volume of about 400. Pulse ox is around 95%. She is getting stronger. She is awake. She is watching television. In terms of her motor function, the strength is improving in her upper extremities. The legs are still weak. The blood gases done today showed a pH of 7.47 with a pCO2 of 39 pO2 of 90. The [facility] staff tried to get at the age of the bed yesterday. She was very weak and she was unable to do so and she was placed back in bed. The patient remains on Decadron and the dose has been drop down to 2 mg on a daily basis. She remains on Eliquis 5 mg by mouth twice a day. She has a rest or secretions around the tracheostomy stoma. She has a Shiley tracheostomy tube. Overall fluid balance is -2.4 L over the past 24 hours. No significant edema in lower extremities. She has PEG tube feeding for enteral feeding and nutritional support and she is receiving vitamin age. The rate of 60 mL an hour. Her weight is down to 98 kg. Other the patient was anxious. I put her on Xanax 0.5 mg 4 times a day. The dose will be increased up to 1 mg 3 times a day. She did require a dose of Ativan yesterday 1 mg as the patient was becoming quite anxious and tachycardic and that helped her quite a bit. Objective - Vital Signs Vital signs: Vital Signs Temp 97.6 F 05/19/21 08:00 Pulse 108 H 05/19/21 08:00 Resp 42 H 05/19/21 08:00 BP 130/66 05/19/21 08:00 Pulse Ox 95 05/19/21 08:00 Intake & Output 05/18/21 05/19/21 05/19/21 18:59 06:59 18:59 Intake Total 1165.155 915 225 Output Total 2250 755 130 Balance -1084.845 160 95 Weight 98.5 kg Intake: IV 299 220 60 Pressure Bag 39 Sodium Chloride 0.9% 1, 260 220 60 000 ml @ 20 mls/hr IV . Q24H MAUREEN Rx#:[id number] Intake, IV Titration 151.155 0 Amount Dexmedetomidine/0.9% NaCl 51.155 0 (Pmx) 400 mcg In Empty Bag 1 bag @ 0.2 MCG/KG/HR 5.38 mls/hr IV .[id number] MAUREEN Rx#:[id number] Potassium Chloride 20 meq 100 In Water For Injection 1 100ml.bag @ 50 mls/hr IVPB Q2H MAUREEN Rx#: [id number] Tube Feeding 715 605 165 Other 90 Output: Urine 2250 755 130 Other: Voiding Method Indwelling Catheter Indwelling Catheter Indwelling Catheter ABP, PAP, CO, CI - Last Documented Arterial Blood Pressure 147/74 - Exam Patient is intubated on a mechanical ventilator. She is sedated , calm and comfortable, responsive, currently off sadation She has a Shiley #[address] for now. Head exam was generally normal. There was no scleral icterus or corneal arcus. Mucous membranes were moist. Neck was supple and without jugular venous distension, thyromegaly, or carotid bruits. Carotids were easily palpable bilaterally. There was no adenopathy. The patient has a tracheostomy tube Shiley #8 Lungs sounds are diminished in the patient's crackles in the mid and lower lung field bilaterally Cardiac exam revealed the PMI to be normally situated and sized. The rhythm was regular and no extrasystoles were noted during several minutes of auscultation. The first and second heart sounds were normal and physiologic splitting of the second heart sound was noted. There were no murmurs, rubs, clicks, or gallops. Abdominal exam revealed normal bowel sounds. The abdomen was soft, non-tender, and without masses, organomegaly, or appreciable enlargement of the abdominal aorta. The patient also has a active in place. Examination of the extremities revealed easily palpable radial, femoral and pedal pulses. There was no cyanosis, clubbing or edema. Examination of the skin revealed no evidence of significant rashes, suspicious appearing nevi or other concerning lesions. Neurologically, the patient is awake . Pupils are equal and reactive to light. - Labs CBC & Chem 7: 05/17/21 05:20 05/18/21 04:05 Labs: Abnormal Lab Results - Last 24 Hours (Table) 05/19/21 Range/Units 05:40 ABG pH 7.47 H (7.35-7.45) ABG HCO3 28 H (21-25) mmol/L ABG Total CO2 29 H (19-24) mmol/L Assessment and Plan Plan: 1 acute hypoxic respiratory failure secondary to COVID 19 pneumonia. Not been vaccinated for COVID 19. The patient has bilateral pulmonary infiltrates due to progression of her COVID 19 infection. She was originally symptomatic on . She was diagnosed having COVID 19 infection on 04/13/2021 and the patient had a brief hospitalization and the patient was discharged home on 04/18/2021 after being treated as an inpatient basis. She presented back with acute hypoxic respiratory failure with signs of ARDS. The patient progressed very quickly and she was brought into the intensive care unit and she was intubated on 04/27/2021 and diagnosed PE on therapeutic dose of Lovenox regarding a possible filling defect in the right lower lobe pulmonary artery branch. The patient also has a DVT in her left popliteal vein. The patient is also post-tracheostomy tube insertion on 05/10/2021 and the patient has a #[address] trache[address] tube in [address]. The patient is gradually improving. The patient has been on pressure support mode of mechanical ventilation overnight. She is currently on a pressure support of 10 and a PEEP of 5. She started on a pressure support mode of mechanical ventilation throughout the day yesterday and she's been on pressure support for the past 24 hours. He is calm and comfortable. Oxygenation is adequate. At times still anxious and the patient becomes quite tachypneic. 2 acute hypoxic respiratory failure secondary to above 3 acute right lower lobe pulmonary embolism secondary to Covid 19 infection. the patient is currently on therapeutic Eliquis and patient also has a left lower extremity DVT 4 history of hypothyroidism 5 history of marijuana smoking 6 enteral feeding for nutritional support via PEG tube Plan Patient is currently off sedation Keep the patient a pressure support and drop the pressure support down to 5 and a PEEP of 5 and check daily weaning parameters. Add BuSpar 15 mg twice a day and increase the dose of Xanax to 1 mg 3 times a day Continue anticoagulation with Eliquis 5 mg by mouth twice a day Continue Decadron drop the dose to 2 mg daily Continue vitamin C and vitamin D and zinc supplements chest x-ray is stable Continue enteral feeding for nutritional support No need for Lasix and the patient's fluid balance is adequate for now. Physical therapy and passive range of motion Updated the yesterday. We'll continue to follow. Condition is still critical. Evaluation was done more than 30 minutes. Time with Patient: Greater than 30
[2021-05-19] MEDS: SODIUM CHLORIDE 0.9% 500 ML 500 ML IV SCH (11:21)
[2021-05-19] MEDS: busPIRone HCl 5 MG TAB PO SCH ×2 (11:21→20:02)
--- NOTE | 2021-05-19 13:45 | PN ---
PROGRESS NOTE DATE OF SERVICE: 05/19/2021 CHIEF COMPLAINT: COVID pneumonia and respiratory failure. HISTORY OF PRESENT ILLNESS: This lady continues to do just about the same. She is still on the ventilator. She is awake. Pulmonary function remains fairly stable, as does her x-ray. PHYSICAL EXAMINATION: Breath sounds are heard bilaterally. Cardiac exam is normal. Abdomen is soft. IMPRESSION: Severe COVID pneumonia with respiratory failure. PLAN: Case was discussed with the hide inspector and sorter, and it is felt that the patient will continue to slowly improve. MMODL / IJN: [id number] /
[2021-05-19] MEDS: ONDANSETRON 4 MG/2 ML VIAL IVP PRN (20:14)
--- NOTE | 2021-05-19 21:55 | P.PN ---
Subjective Progress Note Date: 05/18/21 Principal diagnosis: Pneumonia and bacteremia Interval history : Patient is a 46-year-old -[place] female with admission diagnoses of Acute COVID-19 pneumonia subsequently admission to the hospital with worsening respiratory status has been diagnosed with a DVT and PE. The patient is status post trach and PEG tube placement as of 05/10/2021 On today's evaluation that is 05/18/2021, The patient remains to be afebrile, the patient is hemodynamically stable not requiring any pressor support , the patient FiO2 is stable at 40 %, no purulent secretion through the ET or diarrhea has been reported by the nursing staff, patient is awake and is following commands, did not express any concerns Objective - Vital Signs Vital signs: Vital Signs Temp 97.9 F 05/18/21 12:00 Pulse 104 H 05/18/21 15:00 Resp 38 H 05/18/21 15:00 BP 121/78 05/18/21 15:00 Pulse Ox 97 05/18/21 15:00 Intake & Output 05/17/21 05/18/21 05/18/21 18:59 06:59 18:59 Intake Total 936 1026 931.155 Output Total 2710 1720 1950 Balance -1774 -694 -1018.845 Weight 101 kg 100.1 kg Intake: IV 276 276 230 Pressure Bag 36 36 30 Sodium Chloride 0.9% 1, 240 240 200 000 ml @ 20 mls/hr IV . Q24H MAUREEN Rx#:[id number] Intake, IV Titration 0 151.155 Amount Dexmedetomidine/0.9% NaCl 0 51.155 (Pmx) 400 mcg In Empty Bag 1 bag @ 0.2 MCG/KG/HR 5.38 mls/hr IV .[id number] MAUREEN Rx#:[id number] Potassium Chloride 20 meq 100 In Water For Injection 1 100ml.bag @ 50 mls/hr IVPB Q2H MAUREEN Rx#: [id number] Tube Feeding 660 660 550 Other 90 Output: Urine 2710 1720 1950 Other: Voiding Method Indwelling Catheter Indwelling Catheter Indwelling Catheter # Bowel Movements 1 ABP, PAP, CO, CI - Last Documented Arterial Blood Pressure 147/74 - Exam GENERAL DESCRIPTION: Middle-aged female intubated on the vent RESPIRATORY SYSTEM: Unlabored breathing , decreased breath sounds at bases, no wheeze HEART: S1 S2 regular rate and rhythm ,no loud murmurs ABDOMEN: Soft , no tenderness EXTREMITIES: 2+ edema feet - Labs CBC & Chem 7: 05/17/21 05:20 05/18/21 04:05 Labs: Abnormal Lab Results - Last 24 Hours (Table) 05/18/21 05/18/21 Range/Units 04:05 05:44 ABG Total CO2 26 H (19-24) mmol/L ABG O2 Saturation 98.1 H (94-97) % Potassium 3.4 L (3.5-5.1) mmol/L Chloride 109 H (98-107) mmol/L Creatinine 0.49 L (0.52-1.04) mg/dL Glucose 107 H (74-99) mg/dL Assessment and Plan (1) Positive blood culture Current Visit: Yes Status: Acute Code(s): R78.81 - BACTEREMIA SNOMED Code(s): 984315521 (2) COVID-19 Current Visit: Yes Status: Acute Code(s): U07.1 - COVID-19 SNOMED Code(s): 230533541 Plan: 1-patient with a positive blood culture which has been finalized and staph epi likely skin contaminant, Repeat blood culture has been negative so far, patient is being monitored off vancomycin 2-acute respiratory failure which is multifactorial possible component of pneumonia, Sputum has been usual respiratory pat, patient has completed a course of IV cefepime, the patient currently doing well off antibiotic therapy Time with Patient: Less than 30
--- NOTE | 2021-05-19 21:56 | P.PN ---
Subjective Progress Note Date: 05/19/21 Principal diagnosis: Pneumonia and bacteremia Interval history : Patient is a 46-year-old -Iranian female with admission diagnoses of Acute COVID-19 pneumonia subsequently admission to the hospital with worsening respiratory status has been diagnosed with a DVT and PE. The patient is status post trach and PEG tube placement as of 05/10/2021 On today's evaluation that is 05/19/2021, The patient is afebrile, the patient is hemodynamically stable not requiring any pressor support , the patient FiO2 is stable at 40 %, no purulent secretion through the ET or diarrhea has been reported by the nursing staff, patient is awake and alert and the patient is following commands Objective - Vital Signs Vital signs: Vital Signs Temp 98.4 F 05/19/21 20:00 Pulse 100 05/19/21 21:00 Resp 25 H 05/19/21 21:00 BP 144/73 05/19/21 21:00 Pulse Ox 96 05/19/21 21:00 Intake & Output 05/19/21 05/19/21 05/20/21 06:59 18:59 06:59 Intake Total 915 975 180 Output Total 755 1145 70 Balance 160 -170 110 Weight 98.5 kg Intake: IV 220 260 40 Sodium Chloride 0.9% 1, 220 260 40 000 ml @ 20 mls/hr IV . Q24H [facility] Rx#:[id number] Intake, IV Titration 0 Amount Dexmedetomidine/0.9% NaCl 0 (Pmx) 400 mcg In Empty Bag 1 bag @ 0.2 MCG/KG/HR 5.38 mls/hr IV .[id number] [facility] Rx#:[id number] Tube Feeding 605 715 110 Other 90 30 Output: Urine 755 1145 70 Other: Voiding Method Indwelling Catheter Indwelling Catheter Indwelling Catheter ABP, PAP, CO, CI - Last Documented Arterial Blood Pressure 147/74 - Exam GENERAL DESCRIPTION: Middle-aged female intubated on the vent RESPIRATORY SYSTEM: Unlabored breathing , decreased breath sounds at bases, no wheeze HEART: S1 S2 regular rate and rhythm ,no loud murmurs ABDOMEN: Soft , no tenderness EXTREMITIES: 2+ edema feet - Labs CBC & Chem 7: 05/17/21 05:20 05/18/21 04:05 Labs: Abnormal Lab Results - Last 24 Hours (Table) 05/19/21 Range/Units 05:40 ABG pH 7.47 H (7.35-7.45) ABG HCO3 28 H (21-25) mmol/L ABG Total CO2 29 H (19-24) mmol/L Assessment and Plan (1) Positive blood culture Current Visit: Yes Status: Acute Code(s): R78.81 - BACTEREMIA SNOMED Code(s): 630576681 (2) COVID-19 Current Visit: Yes Status: Acute Code(s): U07.1 - COVID-19 SNOMED Code(s): 849691886 Plan: 1-patient with a positive blood culture which has been finalized and staph epi likely skin contaminant, Repeat blood culture has been negative so far, patient is being monitored off vancomycin 2-acute respiratory failure which is multifactorial possible component of pneumonia, Sputum has been usual respiratory pat, patient white count is normal, patient has completed a course of IV cefepime, the patient is currently being monitor closely off antibiotic therapy, family the bedside questions answered Time with Patient: Less than 30
[2021-05-20] MEDS: fentaNYL (PF) 2,500 MCG in SODIUM CHLORIDE 0.9% 200 ML IV SCH (03:02)
[2021-05-20] MEDS: ONDANSETRON 4 MG/2 ML VIAL IVP PRN (04:10)
[2021-05-20] MEDS: HYDROmorphone 1 MG/ML 1 ML SYRINGE IVP PRN (04:10)
[2021-05-20 04:40] LABS: Appearance,Urine Turbid (Clear); Bilirubin,Urine Negative (Negative); Blood,Urine Large (Negative); Color,Urine Dark Red; Glucose,Urine (UA) Negative (Negative); Ketones,Urine Negative (Negative); Leukocyte Esterase,Urine Moderate (Negative); Mucus,Urine Moderate /hpf; Nitrite,Urine Negative (Negative); Protein,Urine 2+ (Negative); RBC,Urine >182 /hpf (0-5); Squamous Epithelial Cell,Urine 4 /hpf (0-4); WBC,Urine 103 /hpf (0-5)
[2021-05-20] MEDS: DEXMEDETOMIDINE/0.9% NACL(PMX) 400 MCG in EMPTY BAG 1 BAG IV SCH (04:40)
[2021-05-20 06:00] LABS: Basophils # (A) 0.1 k/uL (0-0.2); Basophils % (A) 1 %; Eosinophils # (A) 0.5 k/uL (0-0.7); Eosinophils % (A) 6 %; HCT 38.8 % (34.0-46.0); HGB 12.1 gm/dL (11.4-16.0); Lymphocytes # (A) 1.4 k/uL (1.0-4.8); Lymphocytes % (A) 15 %; MCH 30.7 pg (25.0-35.0); MCHC 31.1 g/dL (31.0-37.0); MCV 98.6 fL (80.0-100.0); Monocytes # (A) 0.5 k/uL (0-1.0); Monocytes % (A) 6 %; Neutrophils # (A) 6.4 k/uL (1.3-7.7); Neutrophils % (A) 70 %; Platelet Count 280 k/uL (150-450); RBC 3.93 m/uL (3.80-5.40); RDW 14.3 % (11.5-15.5)
[2021-05-20] MEDS: LEVOTHYROXINE 112 MCG TAB PO SCH (06:27)
[2021-05-20 06:30] LABS: ALT 92 U/L (4-34); AST 44 U/L (14-36); Alkaline Phosphatase 98 U/L (38-126); Anion Gap 7 mmol/L; Calcium 9.2 mg/dL (8.4-10.2); Carbon Dioxide 27 mmol/L (22-30); Chloride 106 mmol/L (98-107); Glucose 146 mg/dL (74-99); Potassium 3.4 mmol/L (3.5-5.1); Sodium 140 mmol/L (137-145); Total Bilirubin 0.9 mg/dL (0.2-1.3)
[2021-05-20 06:31] LABS: African American GFR (CKD) >90 (>60 ml/min/1.73 sqM); Albumin 3.4 g/dL (3.5-5.0); Blood Urea Nitrogen 14 mg/dL (7-17); Non-African American GFR(CKD) >90 (>60 ml/min/1.73 sqM); Total Protein 7.3 g/dL (6.3-8.2)
[2021-05-20] MEDS: POTASSIUM CHLORIDE 20 MEQ in WATER FOR INJECTION 1 100ML.BAG IVPB SCH ×2 (07:15→08:36)
--- NOTE | 2021-05-20 07:51 | XR ---
EXAMINATION TYPE: XR chest 1V portable DATE OF EXAM: 05/20/2021 COMPARISON: 05/17/2021 HISTORY: Shortness of breath TECHNIQUE: Single frontal view of the chest is obtained. FINDINGS: Tracheostomy tube stable. PICC line stable. Diffuse bilateral infiltrate stable. Prominent bowel loops in the upper abdomen again noted. Osseous structures are stable. Heart size unchanged. N o sizable pneumothorax. IMPRESSION: Diffuse bilateral infiltrate stable.
[2021-05-20] MEDS: ALBUTEROL HFA INHALER INHALATION SCH ×2 (08:23→11:36)
[2021-05-20] MEDS: PANTOPRAZOLE 40 MG/10 ML VIAL IVP SCH (08:29)
[2021-05-20] MEDS: DEXAMETHASONE SOD PHOSPHATE 4 MG/ML 1 ML VIAL IVP SCH (08:29)
[2021-05-20] MEDS: QUEtiapine 50 MG TAB PO SCH ×2 (08:30→20:19)
[2021-05-20] MEDS: APIXABAN 5 MG TAB PO SCH ×2 (08:30→20:19)
[2021-05-20] MEDS: CHLORHEXIDINE GLUCONATE 15 ML CUP MUCOUS MEM SCH ×2 (08:30→20:19)
[2021-05-20] MEDS: busPIRone HCl 5 MG TAB PO SCH ×2 (08:30→20:19)
[2021-05-20] MEDS: ASCORBIC ACID 500 MG TAB PO SCH (08:31)
[2021-05-20] MEDS: ZINC SULFATE 220 MG CAP PO SCH (08:31)
[2021-05-20] MEDS: CHOLECALCIFEROL 125 MCG (5000 IU) TABLET PO SCH (08:31)
[2021-05-20] MEDS: bisacodyL 10 MG SUPP RECTAL SCH (13:20)
[2021-05-20] MEDS: SODIUM CHLORIDE 0.9% 500 ML 500 ML IV SCH (13:26)
--- NOTE | 2021-05-20 13:33 | PN ---
PROGRESS NOTE DATE OF SERVICE: 05/20/2021 CHIEF COMPLAINT: COVID pneumonia with respiratory failure. HISTORY OF PRESENT ILLNESS: There has been very little, if any, change in last 24 hours. She continues to be on ventilator and respire through her tracheostomy. PHYSICAL EXAMINATION: Vital signs are normal. She does not have a fever. Breath sounds are heard on both sides and cardiac exam remains normal. IMPRESSION: Covid pneumonia with respiratory failure on ventilator. PLAN: Review current labs and continue to follow with the Intensive Medicine. MMODL / IJN: [id number] /
--- NOTE | 2021-05-20 14:23 | P.PN ---
Subjective Progress Note Date: 05/20/21 Principal diagnosis: Acute COVID-19 pneumonia On 05/06/2021 patient seen in follow-up in the intensive care unit. Patient remains intubated, sedated on assist control mode of ventilation with a rate of 34, tidal [id number], FiO2 50% and PEEP of 12, this was blood gas shows pO2 of 85, pCO2 of 61, and pH of 7.40, and this was done and above-mentioned ventilator settings, patient is sedated with Diprivan and a 60 mics per kilo per minute, and fentanyl at 2.0 mics per kilo per minute, 0.9 normal saline at a rate of 20 ML per hour. She is receiving tube feedings with vital HP at a rate of 21 with a goal of 21, and standard water flushes, today's chest x-ray shows diffuse bi lateral infiltrates and pleural effusions are stable in appearance. Patient currently remains on dexamethasone 6 mg every 12 hours, she is on prophylactic dose of Lovenox 100 mg twice daily, she is on Seroquel 25 mg twice daily, she is on multivitamins, she is on cefepime for antibiotic coverage and Ventolin and Symbicort. Patient's blood culture from 04/27/2021 showed staph epidermidis likely skin contaminant, follow blood culture and sputum cultures have shown no growth, urine culture was also negative. Hemodynamically patient has remained stable, no vasopressor support. She is in sinus mechanism. She has been afebrile. She is tolerating her tube feedings. His labs have been reviewed, white blood cell count is 8.3, hemoglobin is 11.9, sodium is 140, potassium 4.2, chloride is 103, CO2 38, B1 17, creatinine 0.50, AST was 70, improved value, and ALT was 146, fairly stable, alk phos was within normal limits. Her inflammatory markers were improving on the labs from 04/29/2021. Her d-dimer was also improving and was down to 5.07. Her lower extremity Doppler showed a DVT in the right popliteal vein. Patient also had a questionable right lower lobe PE involving subsegmental branches the initial CT angiogram of the chest from 04/24/2021. On 05/07/2021 patient seen in follow-up in intensive care unit, she is currently sedated and intubated on assist control mode of ventilation with a rate of 34, Tylenol 300, FiO2 of 50% and PEEP 8. This morning's blood gas shows pO2 of 98, pCO2 of 57, and pH of 7.44. Today's chest x-ray has been reviewed showing bilateral infiltrates stable in appearance. Patient is currently on 0.9 normal saline at rate of 20 ML per hour, Diprivan and is at 35 mics per kilo per minute, and fentanyl infusion at 1 nadia per kilo per minute, she is tolerating tube feeding she is on vital HP at 21 with standard water flushes 30 mL every 4 hours, today's labs have been reviewed, white blood cell count is 8.3, hemoglobin is 11.7, platelet count is 405, sodium is 136, potassium is 4.3, chloride is 99, CO2 is 37, BUN 16 creatinine 0.46. AST is improving and is down to 69, ALT is 148, relatively stable compared to yesterday, LDH is improved and is down to 835, CRP is 1.0, follow pro-calcitonin is 0.14. Patient remains on cefepime, and she has completed 10 day course of treatment. Single blood culture from was positive for staph epidermidis likely skin contaminant, follow blood cultures urine culture and sputum cultures have shown no growth. She's had no acute events overnight. We will consult the surgical services for possibility tracheostomy and PEG tube placement, the family would like to see if patient can potentially wean from the ventilator, we will proceed with the daily interruption of sedation spontaneous breathing trials today. On 05/08/2021 patient seen in follow-up in intensive care unit, she is sedated and intubated on assist control mode of ventilation with a rate of 34, tidal volume 300, FiO2 of 50% and PEEP of 5. This morning's blood gas showed a pO2 of 71, pCO2 of 50, and pH of 7.47 this was done on the above-mentioned settings. Yesterday patient had failed spontaneous breathing trials, she became very tachypneic, R SBI was 107, her mentation remained altered through the weaning trials, she was not completely awake, she was breathing fast, she was tachycardic, she was requiring Precedex doing the breathing trials. She was placed back on assist control mode of ventilation for the night. Is currently on Diprivan at 50 mics per kilo per minute, and fentanyl at 1.2 mics per kilo per minute, point, seen at a rate of 20 ML per hour, today's chest x-ray has been reviewed showing bilateral airspace disease, ARDS. Her peak pressure on the ventilator this morning is 13, and plateau pressure is 22. Patient is still quite tachypneic, asynchronous with the vent, and subsequently patient was placed on VC+ mode of ventilation with a rate of 28, tidal vital 375, inspiratory time of 0.8 seconds, FiO2 of 50% and PEEP was increased to 10. Patient was adequately sedated, and blood gas was repeated showing pO2 of 64, pCO2 of 52, and pH of 7.45 [address] was on [address] plus mode of ventilation, and subsequently her PEEP was increased to 12. Patient seems to be breathing more comfortably, she is less tachypneic. The rest of her labs have been reviewed showing white blood cell count of 9.3, hemoglobin of 11.5, sodium is 140, potassium is 3.4, chloride is 104, CO2 is 37, BUN is 15, creatinine 0.52. AST is improving and is down to 59, ALT is 1:30 is also improved, and her LDH is improved and down to 764, CRP is 1.3, patient's pro-calcitonin level was negative at 0.14, patient has completed a course of cefepime. However there is still some thick yellow secretions being suctioned from the ET tube which will be sent for cultures today. Patient currently remains on Decadron 6 mg daily, Lovenox 100 mg twice daily, multivitamins, she is also on Seroquel 50 mg twice daily for underlying anxiety. Patient has failed sedation holiday today. On 05/09/2021 patient seen in follow-up in intensive care unit, she is currently sedated, and intubated on mechanical ventilator, on the pressure assist mode of ventilation, with PI of 20, inspiratory time of 0.9 seconds, FiO2 of 50%, respiratory rate of 28, and PEEP of 12, this morning's blood gas shows pO2 of 63, pCO2 of 56, and pH of 7.44, this was done in the above mentioned vent settings, his chest x-ray is showing findings consistent with a with pneumonia, bilateral airspace disease that appeared to be somewhat less confluent although there are differences in the technique. Patient is currently on Diprivan at 60 mics per kilo per minute, fentanyl drip is at 1.5 mics per kilo per minute, 0.9 at 20 ML per hour. Today's labs have been reviewed, 1 bottle, is 10.0, hemoglobin is 10.8, sodium is 137, potassium is 3.7, chloride is 102, CO2 35, BUN is 13, creatinine 0.33. AST continues to improve and is down to 44, ALT is down to 108, and alkaline phosphatase remains in the normal range at 74, her LDH and CRP were improving on yesterday's labs, today's levels are still pending. Sputum culture was sent yesterday, preliminary Gram stain and final culture are still pending, patient recently completed a full course of cefepime. Most recent pro-calcitonin level was negative at 0.14 on 05/07/2021. She has had no fevers overnight. 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 Surgical consultation was requested for evaluation for tracheostomy and PEG tube placement. Family has made a request to switch surgical consultation to the surgeon of their choosing. Request was accommodated. On 05/20/2021 patient seen in follow-up in the intensive care unit, she is awake and alert, oriented 3, she is quite pleasant, she is in good spirits, she is resting in bed she is watching television. She is trached to the ventilator and currently she is on pressure-support 5 and CPAP of 5 with FiO2 of 40% tolerating it quite well so far. She has been tolerating pressure-support trials with a past few days. Her anxiety level is significantly improved, she is not requiring any sedation, she is on Seroquel 50 mg twice daily, with when necessary doses of IV Dilaudid 0.5 mg every 6 hours, and intermittent doses of Ativan for intermittent anxiety. Today's chest x-ray showed diffuse bilateral infiltrates that are stable in appearance. The morning's labs have been reviewed, blood gas showing pO2 of 90, pCO2 of 39 and pH of 7.47, this was done on pressure-support of 5 and CPAP of 5 with FiO2 of 40%. Her CBC is completely within normal limits, with little, is 9.0, hemoglobin is 12.1, sodium is 140, potassium is 3.4 was replaced per protocol, chloride is 106, CO2 is 27, B1 is 14 creatinine 0.44. Urinalysis showed turbid urine, with large amount of blood, moderate amount of leukocyte esterase, increased white blood cells of around 103. Urine culture has been sent and is pending at this time. Clinically patient is fairly asymptomatic. Currently not on any antibiotics however in view of her significantly abnormal urinalysis we will start the patient on empiric Rocephin until we get results of the urine culture back. She denies any acute distress, no worsening dyspnea or cough, she is currently unemployed and was seen at a rate of 10 ML per hour, she is on vital high-protein at a rate of 55 with a goal of 55 and standard water flushes. Her tracheostomy site is clean dry and intact, tube site is clean dry and intact. She currently remains on Decadron and her dose is being weaned and is currently down to 2 mg daily, she is on Eliquis 5 mg twice daily, she is on multivitamins. Objective - Vital Signs Vital signs: Vital Signs Temp 97.9 F 05/20/21 12:00 Pulse 105 H 05/20/21 13:00 Resp 38 H 05/20/21 13:00 BP 136/80 05/20/21 13:00 Pulse Ox 96 05/20/21 13:00 Intake & Output 05/19/21 05/20/21 05/20/21 18:59 06:59 18:59 Intake Total 975 915 725 Output Total 1145 485 390 Balance -170 430 335 Weight 95.2 kg 95.2 kg Intake: IV 260 220 140 Sodium Chloride 0.9% 1, 260 220 140 000 ml @ 20 mls/hr IV . Q24H [facility] Rx#:[id number] Intake, IV Titration 0 200 Amount Dexmedetomidine/0.9% NaCl 0 (Pmx) 400 mcg In Empty Bag 1 bag @ 0.2 MCG/KG/HR 5.38 mls/hr IV .[id number] [facility] Rx#:[id number] Potassium Chloride 20 meq 200 In Water For Injection 1 100ml.bag @ 50 mls/hr IVPB Q2H [facility] Rx#: [id number] Tube Feeding 715 605 385 Other 90 Output: Urine 1145 485 390 Other: Voiding Method Indwelling Catheter Indwelling Catheter Indwelling Catheter ABP, PAP, CO, CI - Last Documented Arterial Blood Pressure 147/74 - Exam GENERAL EXAM: Awake and alert, quite comfortable, responsive, and interactive 46-year-old female, on pressure-support 5 and CPAP of 5 and FiO2 of 40%, patient is awake and alert, she is connected to the ventilator via tracheostomy, appears to be very comfortable, tolerating pressure support trials quite well. appears be in no acute distress HEAD: Normocephalic/atraumatic. EYES: Normal reaction of pupils, equal size. Conjunctiva pink, sclera white. NOSE: Clear with pink turbinates. THROAT: No erythema or exudates. NECK: No masses, no JVD, no thyroid enlargement, no adenopathy. Midline tracheostomy is clean dry and intact CHEST: No chest wall deformity. Symmetrical expansion. LUNGS: Equal air entry with no crackles, wheeze, rhonchi or dullness. CVS: Regular rate and rhythm, normal S1 and S2, no gallops, no murmurs, no rubs ABDOMEN: Soft, nontender. No hepatosplenomegaly, normal bowel sounds, no guarding or rigidity. EXTREMITIES: No clubbing, no edema, no cyanosis, 2+ pulses and upper and lower extremities. MUSCULOSKELETAL: Muscle strength and tone normal. SPINE: No scoliosis or deformity SKIN: No rashes CENTRAL NERVOUS SYSTEM: Trached to the ventilator, awake and alert and oriented 3 No focal deficits, tone is normal in all 4 extremities. - Labs CBC & Chem 7: 05/20/21 05:33 05/20/21 05:33 Labs: Abnormal Lab Results - Last 24 Hours (Table) 05/20/21 05/20/21 Range/Units 04:17 05:33 Potassium 3.4 L (3.5-5.1) mmol/L Creatinine 0.44 L (0.52-1.04) mg/dL Glucose 146 H (74-99) mg/dL AST 44 H (14-36) U/L ALT 92 H (4-34) U/L Albumin 3.4 L (3.5-5.0) g/dL Urine Appearance Turbid H (Clear) Urine Protein 2+ H (Negative) Urine Blood Large H (Negative) Ur Leukocyte Esterase Moderate H (Negative) Urine RBC >182 H (0-5) /hpf Urine WBC 103 H (0-5) /hpf Urine Mucus Moderate H (None) /hpf Microbiology - Last 24 Hours (Table) 05/20/21 04:17 Urine Culture - Preliminary Urine,Voided Assessment and Plan Plan: Assessment: #1. Acute hypoxic respiratory failure secondary to COVID-19 pneumonia. Patient is a non-vaccinated adult. Initial diagnosis was established on 04/13/2021, patient was hospitalized and discharged home on 04/18/2021, readmitted with worsening hypoxia and dyspnea, and intubated on 04/27/2021. She remains intubated and mechanically ventilated today on 05/06/2021. Patient was initially placed on Baricitinib which was discontinued because of concern of infection related to mildly elevated pro calcitonin. Currently pro calcitonin level is improved, patient completed cefepime for empiric antibiotic coverage with no positive bacterial growth on cultures except for staph epidermidis on blood culture. Follow-up cultures have been negative thus far. Patient has completed a course of cefepime. Currently her dyspnea and hypoxia have significantly improved, and she is awake and alert, she is status post tracheostomy tube insertion on 05/10/2021, patient has a #[address] tracheostomy tube in place, she is currently tolerating pressure support 5 and CPAP of 5 trials. Today she'll be placed on 40% trach collar on 05/20/2021 #2. Acute right lower lobe pulmonary embolism and right popliteal DVT, was on therapeutic doses of Lovenox, has been started on Eliquis 5 mg twice daily #3. Acute respiratory acidosis, improved #4. History of hypothyroidism #5. History of marijuana smoking #6. Anxiety #7. Increased LFTs, likely related to viral pneumonia, improved #8. Elevated inflammatory markers, improving Plan: Today's chest x-ray, blood gases, labs reviewed Patient has been tolerating pressure support of 5 and CPAP of 5 trials with FiO2 of 40% She is calm and comfortable, her anxiety has significantly improved she's not requiring any continuous infusions of Precedex or sedatives We'll place her on 40% trach collar Continue current dose Decadron, she is currently down to 2 mg daily We'll start the patient on Rocephin until we get the urine culture back Continue Eliquis Continue tube feedings Physical therapy to continue working with the patient on strength and gait training We'll continue to follow her condition closely I performed a history & physical examination of the patient and discussed their management with my nurse practitioner, Maribeth Pereira. I reviewed the nurse practitioner's note and agree with the documented findings and plan of care. Lung sounds are positive for dim breath sounds throughout the lung tai. The findings and the impression was discussed with the patient. I attest to the documentation by the nurse practitioner. Time with Patient: Greater than 30
[2021-05-20] MEDS: MICONAZOLE NITRATE 2% CREAM 14 GM TUBE TOPICAL SCH (20:13)
[2021-05-20] MEDS: ALPRAZolam 0.5 MG TAB PO PRN (20:19)
[2021-05-20] MEDS ORDERED: MICONAZOLE 2% VAGINAL CREAM 45 GM TUBE/KIT VAGINAL SCH (21:00)
[2021-05-21] MEDS: LEVOTHYROXINE 112 MCG TAB PO SCH (06:34)
[2021-05-21 07:31] LABS: Basophils % (A) 1 %; Eosinophils # (A) 0.4 k/uL (0-0.7); Eosinophils % (A) 5 %; HCT 38.9 % (34.0-46.0); HGB 12.3 gm/dL (11.4-16.0); Lymphocytes # (A) 1.6 k/uL (1.0-4.8); Lymphocytes % (A) 22 %; MCH 31.1 pg (25.0-35.0); MCHC 31.5 g/dL (31.0-37.0); MCV 98.6 fL (80.0-100.0); Macrocytosis Slight; Mean Platelet Volume 8.7; Monocytes # (A) 0.5 k/uL (0-1.0); Monocytes % (A) 6 %; Neutrophils # (A) 4.6 k/uL (1.3-7.7); Neutrophils % (A) 62 %; Platelet Count 274 k/uL (150-450); RBC 3.95 m/uL (3.80-5.40); RDW 14.9 % (11.5-15.5); WBC 7.4 k/uL (3.8-10.6)
[2021-05-21 07:46] LABS: African American GFR (CKD) >90 (>60 ml/min/1.73 sqM); Albumin 3.4 g/dL (3.5-5.0); Anion Gap 6 mmol/L; Blood Urea Nitrogen 14 mg/dL (7-17); Calcium 9.3 mg/dL (8.4-10.2); Carbon Dioxide 28 mmol/L (22-30); Chloride 105 mmol/L (98-107); Glucose 116 mg/dL (74-99); Non-African American GFR(CKD) >90 (>60 ml/min/1.73 sqM); Potassium 3.6 mmol/L (3.5-5.1); Sodium 139 mmol/L (137-145); Total Bilirubin 0.7 mg/dL (0.2-1.3); Total Protein 7.2 g/dL (6.3-8.2)
[2021-05-21 07:50] LABS: ALT 119 U/L (4-34); AST 54 U/L (14-36); Alkaline Phosphatase 99 U/L (38-126); C Reactive Protein 4.9 mg/dL (<1.0); LDH 890 U/L (313-618)
--- NOTE | 2021-05-21 09:13 | XR ---
EXAMINATION TYPE: XR chest 1V portable DATE OF EXAM: 05/21/2021 COMPARISON: 05/20/2021 HISTORY: Shortness of breath TECHNIQUE: Single frontal view of the chest is obtained. FINDINGS: Tracheostomy tube stable. PICC line stable. Diffuse bilateral infiltrate stable. Prominent bowel loops in the upper abdomen again noted. Osseous structures are stable. Heart size unchanged. N o sizable pneumothorax. IMPRESSION: Stable diffuse bilateral infiltrates.
[2021-05-21] MEDS: DEXAMETHASONE SOD PHOSPHATE 4 MG/ML 1 ML VIAL IVP SCH (09:54)
[2021-05-21] MEDS: PANTOPRAZOLE 40 MG/10 ML VIAL IVP SCH (09:55)
[2021-05-21] MEDS: ZINC SULFATE 220 MG CAP PO SCH (09:55)
[2021-05-21] MEDS: CHLORHEXIDINE GLUCONATE 15 ML CUP MUCOUS MEM SCH ×2 (09:55→20:48)
[2021-05-21] MEDS: ACETAMINOPHEN TAB 325 MG TAB PO PRN (09:55)
[2021-05-21] MEDS: QUEtiapine 50 MG TAB PO SCH ×2 (09:56→20:49)
[2021-05-21] MEDS: ASCORBIC ACID 500 MG TAB PO SCH (09:56)
[2021-05-21] MEDS: CHOLECALCIFEROL 125 MCG (5000 IU) TABLET PO SCH (09:56)
[2021-05-21] MEDS: busPIRone HCl 5 MG TAB PO SCH ×2 (09:56→20:49)
[2021-05-21] MEDS: APIXABAN 5 MG TAB PO SCH ×2 (09:56→20:49)
[2021-05-21] MEDS: MICONAZOLE NITRATE 2% CREAM 14 GM TUBE TOPICAL SCH ×2 (09:57→20:50)
[2021-05-21] MEDS: bisacodyL 10 MG SUPP RECTAL SCH (09:57)
[2021-05-21] MEDS ORDERED: POTASSIUM BICARBONATE/CIT AC 20 MEQ TABLET.EFF PO ONE (10:30)
[2021-05-21] MEDS: SODIUM CHLORIDE 0.9% 500 ML 500 ML IV SCH (11:59)
--- NOTE | 2021-05-21 12:37 | P.CONS ---
History of Present Illness - Chief Complaint Medical debility - History of Present Illness I had the opportunity to see patient for inpatient rehab consultation with regard to medical debility. She was readmitted to [facility] April 21 with increasing shortness of breath and: Positive pneumonia with right lower lobe PE and right leg DVT. Seen medically by Dr. Hannah, Dr. Swain and Dr. Mcbride. Seen by Dr. coles who did perform PEG tube placement and trach. Chest x-rays followed for diffuse infiltrates. PT and OT prescribed but they appear to be doing bedside exercise and note fatigues quickly. Previous functional history as elicited from patient and , Carlos: 46-year-old right-handed female who is lives in one floor home with and 3 kids. generally does the cooking and laundry and can drive and patient was independent with driving, standing shower and gait without device previously. PCP Milena Rios. Review of Systems Review of systems: ENT: Denies sneezes or discharge. Eyes: Denies discharge or photophobia. Cardiac: Denies chest pain or palpitation. Pulmonary: Mild to moderate shortness of breath. Just received talking trach today. Breast: Denies discharge or lumps. Gastrointestinal: Denies nausea, emesis, constipation, diarrhea. Genitourinary: Denies discharge or frequency. Musculoskeletal: Denies muscle or bone aches. Neurologic: Generalized weakness. Endocrine: Denies shakes or sweats. Oncology: Denies cancers. Dermatologic: Denies rash, itching, pruritus. ALLERGY/immunology: Denies sneezes, rashes. Past Medical History Past Medical History: GERD/Reflux, Pneumonia (COVID 19 infection on 04/11/2021), Thyroid Disorder Additional Past Medical History / Comment(s): overactive bladder History of Any Multi-Drug Resistant Organisms: None Reported Past Surgical History: Hysterectomy Additional Past Surgical History / Comment(s): partial hysterectomy, 09/11/14 thyroid removal Past Anesthesia/Blood Transfusion Reactions: No Reported Reaction Past Psychological History: Anxiety Smoking Status: Never smoker Past Alcohol Use History: Occasional Past Drug Use History: Marijuana Additional Drug Use History / Comment(s): occassional use of marijuana per pt - Past Family History Mother Family Medical History: Cancer, Hypertension Additional Family Medical History / Comment(s): colon cancer. maternal aunt with breast cancer age 40 Sister(s) Family Medical History: Cancer Additional Family Medical History / Comment(s): breast cancer age 49 Father Family Medical History: Hypertension Additional Family Medical History / Comment(s): paternal gradmother breast cancer age 80 Medications and Allergies Home Medications Medication Instructions Recorded Confirmed Type Levothyroxine Sodium [Synthroid] 112 mcg PO DAILY 04/13/21 04/20/21 History predniSONE 50 mg PO DAILY #5 tab 04/21/21 Rx Allergies Allergy/AdvReac Type Severity Reaction Status Date / Time No Known Allergies Allergy Verified 04/20/21 23:23 Physical Exam Vitals: Vital Signs Temp Pulse Resp BP Pulse Ox 05/21/21 12:00 97.9 F 108 H 18 132/96 93 L 05/21/21 11:00 115 H 12 132/96 94 L 05/21/21 10:00 98 32 H 132/96 94 L 05/21/21 09:03 99 05/21/21 09:00 90 33 H 132/96 98 05/21/21 08:00 97.8 F 106 H 18 138/87 98 05/21/21 07:00 111 H 30 H 138/87 96 05/21/21 06:00 96 36 H 98 05/21/21 05:00 105 H 35 H 138/87 95 05/21/21 04:00 98.7 F 102 H 37 H 91 L 05/21/21 03:00 90 28 H 95 05/21/21 02:00 92 25 H 115/71 94 L 05/21/21 01:00 93 29 H 93 L 05/21/21 00:14 98 27 H 97 05/21/21 00:00 98.9 F 96 25 H 125/79 97 05/20/21 23:00 92 25 H 142/104 98 05/20/21 22:00 111 H 21 132/85 97 05/20/21 21:00 98 27 H 138/90 96 05/20/21 20:00 99.2 F 122 H 26 H 129/83 92 L 05/20/21 19:00 105 H 37 H 133/78 95 05/20/21 18:00 112 H 17 130/77 96 05/20/21 17:00 102 H 37 H 129/77 96 05/20/21 16:00 97.5 F L 118 H 27 H 135/81 91 L 05/20/21 15:00 113 H 24 136/77 95 05/20/21 14:00 105 H 0 L 134/84 96 05/20/21 13:00 105 H 38 H 136/80 96 Intake and Output 05/20/21 05/21/21 05/21/21 22:59 06:59 14:59 Intake Total 630 660 500 Output Total 525 440 615 Balance 105 220 -115 Intake: IV 160 160 120 Sodium Chloride 0.9% 1, 160 160 120 000 ml @ 20 mls/hr IV . Q24H MAUREEN Rx#:[id number] Intake, IV Titration 50 Amount cefTRIAXone 1 gm In 50 Sodium Chloride 0.9% 50 ml @ 100 mls/hr IVPB Q24HR MAUREEN Rx#:[id number] Tube Feeding 440 440 330 Other 30 60 Output: Urine 525 440 615 Other: Voiding Method Indwelling Catheter Indwelling Catheter Indwelling Catheter # Bowel Movements 1 1 Weight 97.5 kg Skin: Good color, texture, turgor. General: Medium build and comfortable appearance. Head: Normocephalic, atraumatic. Eyes: Symmetric. Pupils equal round. Ears: Symmetric. Hearing within normal limits. Mouth: Clear. Neck: Supple. Carotid without bruit. Cardiac: Regular rate and rhythm. Lungs: Clear anteriorly and posteriorly. Abdomen: Soft active nontender. Extremities: Normal tone. Neurological: Mental status: Alert, cooperative, pleasant. Cranial nerves: Symmetric facial tone and trapezius. Motor: Active movement and elevation off of bed all 4 limbs including distal activity. Sensation: Intact throughout. DTRs: Symmetric and equal throughout. Mobility: Physical assistance for bed and functional mobility. Results CBC & Chem 7: 05/21/21 07:07 05/21/21 07:07 Labs: Abnormal Lab Results - Last 24 Hours (Table) 05/21/21 Range/Units 07:07 Creatinine 0.33 L (0.52-1.04) mg/dL Glucose 116 H (74-99) mg/dL AST 54 H (14-36) U/L ALT 119 H (4-34) U/L Lactate Dehydrogenase 890 H (313-618) U/L C-Reactive Protein 4.9 H (<1.0) mg/dL Albumin 3.4 L (3.5-5.0) g/dL Microbiology - Last 24 Hours (Table) 05/20/21 04:17 Urine Culture - Preliminary Urine,Voided Assessment and Plan (1) COVID-19 Current Visit: Yes Status: Acute Code(s): U07.1 - COVID-19 SNOMED Code(s): 166852040 (2) Hypoxia Current Visit: Yes Status: Acute Code(s): R09.02 - HYPOXEMIA SNOMED Code(s): 334180386 Plan: Comments and plan: At this time PT and OT are prescribed. We'll required her therapy notes out of bed. Patient currently medically challenged and in fact in ICU bed. We'll continue to follow with yourself. At this time would expect a protracted recovery course and more likely need and benefit of inpatient rehab.
--- NOTE | 2021-05-21 12:47 | P.PN ---
Subjective Progress Note Date: 05/21/21 Principal diagnosis: Acute hypoxic respiration is secondary to COVID-19 pneumonia On 05/20/2021 patient seen in follow-up in the intensive care unit, she is awake and alert, oriented 3, she is quite pleasant, she is in good spirits, she is resting in bed she is watching television. She is trached to the ventilator and currently she is on pressure-support 5 and CPAP of 5 with FiO2 of 40% tolerating it quite well so far. She has been tolerating pressure-support trials with a past few days. Her anxiety level is significantly improved, she is not requiring any sedation, she is on Seroquel 50 mg twice daily, with when necessary doses of IV Dilaudid 0.5 mg every 6 hours, and intermittent doses of Ativan for intermittent anxiety. Today's chest x-ray showed diffuse bilateral infiltrates that are stable in appearance. The morning's labs have been reviewed, blood gas showing pO2 of 90, pCO2 of 39 and pH of 7.47, this was done on pressure-support of 5 and CPAP of 5 with FiO2 of 40%. Her CBC is completely within normal limits, with little, is 9.0, hemoglobin is 12.1, sodium is 140, potassium is 3.4 was replaced per protocol, chloride is 106, CO2 is 27, B1 is 14 creatinine 0.44. Urinalysis showed turbid urine, with large amount of blood, moderate amount of leukocyte esterase, increased white blood cells of around 103. Urine culture has been sent and is pending at this time. Clinically patient is fairly asymptomatic. Currently not on any antibiotics however in view of her significantly abnormal urinalysis we will start the patient on empiric Rocephin until we get results of the urine culture back. She denies any acute distress, no worsening dyspnea or cough, she is currently unemployed and was seen at a rate of 10 ML per hour, she is on vital high-protein at a rate of 55 with a goal of 55 and standard water flushes. Her tracheostomy site is clean dry and intact, tube site is clean dry and intact. She currently remains on Decadron and her dose is being weaned and is currently down to 2 mg daily, she is on Eliquis 5 mg twice daily, she is on multivitamins. Reevaluated today on 05/21/2021, patient has been weaning nicely over the last 24 hours patient did very well with pressure support and CPAP initially, and over the last 24 hours we had the patient on trach collar. She has been tolerating trach collar quite well. She is on 40% FiO2, does not seem to be in any distress, hence I went ahead today and proceeded to decannulation of the tra cheostomy. This was done at bedside, and she was placed on a nasal cannula. Patient was extremely excited after the tracheostomy came out, and a sterile dressing was placed over the surgical incision. CBC is relatively normal electrolytes are normal chest x-ray continues to show bilateral chronic infiltrates or post inflammatory changes from previous COVID-19 pneumonia Objective - Vital Signs Vital signs: Vital Signs Temp 97.9 F 05/21/21 12:00 Pulse 108 H 05/21/21 12:00 Resp 18 05/21/21 12:00 BP 132/96 05/21/21 12:00 Pulse Ox 93 L 05/21/21 12:00 Intake & Output 05/20/21 05/21/21 05/21/21 18:59 06:59 18:59 Intake Total 1100 990 500 Output Total 825 630 615 Balance 275 360 -115 Weight 95.2 kg 97.5 kg Intake: IV 240 240 120 Sodium Chloride 0.9% 1, 240 240 120 000 ml @ 20 mls/hr IV . Q24H [facility] Rx#:[id number] Intake, IV Titration 200 50 Amount Potassium Chloride 20 meq 200 In Water For Injection 1 100ml.bag @ 50 mls/hr IVPB Q2H [facility]UREEN Rx#: [id number] cefTRIAXone 1 gm In 50 Sodium Chloride 0.9% 50 ml @ 100 mls/hr IVPB Q24HR MAUREEN Rx#:[id number] Tube Feeding 660 660 330 Other 90 Output: Urine 825 630 615 Other: Voiding Method Indwelling Catheter Indwelling Catheter Indwelling Catheter # Bowel Movements 1 1 ABP, PAP, CO, CI - Last Documented Arterial Blood Pressure 147/74 - Exam Physical Exam revealed a 46-year-old -Citizen Of [place] female, sitting in bed, comfortable, on trach collar. Head: Atraumatic, normocephalic, tracheostomy is intact. HEENT:[Neck is supple.] [No neck masses.] [No thyromegaly.] [No JVD.] No a denopathy is appreciated. Chest: [Symmetrical chest expansion crackles at the bases. Cardiac Exam: [Normal S1 and S2, no S3 gallop, no murmur.] Abdomen: [Soft, nontender, no megaly, no rebound, no guarding, normal bowel sounds.] Extremities: [No clubbing, no edema, no cyanosis.] Good pulses bilaterally. Neurological Exam: Alert oriented 3 no gross focal deficit Psychiatric: Normal mood affect and normal mental status examination. - Labs CBC & Chem 7: 05/21/21 07:07 05/21/21 07:07 Labs: Abnormal Lab Results - Last 24 Hours (Table) 05/21/21 Range/Units 07:07 Creatinine 0.33 L (0.52-1.04) mg/dL Glucose 116 H (74-99) mg/dL AST 54 H (14-36) U/L ALT 119 H (4-34) U/L Lactate Dehydrogenase 890 H (313-618) U/L C-Reactive Protein 4.9 H (<1.0) mg/dL Albumin 3.4 L (3.5-5.0) g/dL Microbiology - Last 24 Hours (Table) 05/20/21 04:17 Urine Culture - Preliminary Urine,Voided Assessment and Plan Assessment: Impression: Acute hypoxic respiratory failure secondary to COVID-19 pneumonia, patient is not vaccinated. Diagnosed initially on 04/13/2021, hospitalized and discharged home on 04/18, readmitted and intubated on 04/27/2021, remains intubated and mechanically ventilated. Initially placed on Baricitinib which was discontinued because of concern of infection and elevated pro calcitonin. Status post tr acheostomy on 05/10/2021, placed on trach collar for the last 24 hours, extubated/D cannulated on 05/21/2021. Acute right lower lobe pulmonary embolism, remains on Eliquis 5 mg twice a day. History of hypothyroidism History of marijuana smoking Critical illness polyneuropathy Recommendation: Considering the patient tolerated trach collar for the last 24 hours, proceeded to decannulation of tracheostomy today, We will arrange for possible referral to rehab. Discontinue Decadron. Continue Rocephin and awaiting urine cultures Continue Eliquis Physical therapy to evaluate and to continue, plans to eventually transfer patient to rehab. We'll consult for possible inpatient rehab. Time with Patient: Less than 30
[2021-05-21] MEDS: FLUCONAZOLE 100 MG TAB PO SCH (13:34)
[2021-05-21] MEDS ORDERED: ANIDULAFUNGIN 200 MG in SODIUM CHLORIDE 0.9% 200 ML IVPB ONE (14:00)
--- NOTE | 2021-05-21 15:33 | P.GSCN ---
History of Present Illness Consult date: 05/21/21 History of present illness: 46 yo female who has had a protracted hospita/ icu stay for respiratory failure from covid 19. SHe has had an indwelling catheter during the ventilator run SHe has hematuria. There are no other urines on the chart to compare with. She is on eliquis. A Pnea catheter then placed about a month. It is some bladder discomfort. Prior to her Covid pneumonia she never had any urinary tract problems. There is no history of recurring infection hematuria incontinence urinary tract surgery or stones. There is no history of cancer. Urine in the catheter today is clear. The urine was cultured and it grew reji. Review of Systems All systems: negative - Constitutional Denies fever, Denies weight loss - EENT Eyes: denies blurred vision Ears, nose, mouth and throat: Denies dysphagia - Cardiovascular Denies chest pain, Denies shortness of breath - Respiratory Denies cough, Denies 7 - Gastrointestinal Reports as per HPI - Genitourinary Genitourinary: Denies dysuria, Denies hematuria - Integumentary Denies rash, Denies unusual bruising - Neurological Denies headaches, Denies syncope - Hematologic/Lymphatic Denies easy bleeding, Denies easy bruising Past Medical History Past Medical History: GERD/Reflux, Pneumonia (COVID 19 infection on 04/11/2021), Thyroid Disorder Additional Past Medical History / Comment(s): overactive bladder History of Any Multi-Drug Resistant Organisms: None Reported Past Surgical History: Hysterectomy Additional Past Surgical History / Comment(s): partial hysterectomy, 09/11/14 thyroid removal Past Anesthesia/Blood Transfusion Reactions: No Reported Reaction Past Psychological History: Anxiety Smoking Status: Never smoker Past Alcohol Use History: Occasional Past Drug Use History: Marijuana Additional Drug Use History / Comment(s): occassional use of marijuana per pt - Past Family History Mother Family Medical History: Cancer, Hypertension Additional Family Medical History / Comment(s): colon cancer. maternal aunt with breast cancer age 40 Sister(s) Family Medical History: Cancer Additional Family Medical History / Comment(s): breast cancer age 49 Father Family Medical History: Hypertension Additional Family Medical History / Comment(s): paternal gradmother breast cancer age 80 Medications and Allergies Home Medications Medication Instructions Recorded Confirmed Type Levothyroxine Sodium [Synthroid] 112 mcg PO DAILY 04/13/21 04/20/21 History predniSONE 50 mg PO DAILY #5 tab 04/21/21 Rx Allergies Allergy/AdvReac Type Severity Reaction Status Date / Time No Known Allergies Allergy Verified 04/20/21 23:23 Surgical - Exam Vital Signs Temp Pulse Resp BP Pulse Ox 100.7 F H 121 H 24 118/107 87 L 04/20/21 22:34 04/20/21 22:34 04/20/21 22:34 04/20/21 22:34 04/20/21 22:34 - General well developed, well nourished, no distress - Eyes PERRL - ENT no hearing loss - Neck Tracheostomy. The patient is able to talk when she covers the tracheostomy hole - Respiratory normal respiratory effort - Cardiovascular Rhythm: regular - Abdomen Abdomen: soft, non tender - Genitourinary Indwelling catheter with clear urine Results - Labs 05/21/21 07:07 05/21/21 07:07 Abnormal Lab Results - Last 24 Hours (Table) 05/21/21 Range/Units 07:07 Creatinine 0.33 L (0.52-1.04) mg/dL Glucose 116 H (74-99) mg/dL AST 54 H (14-36) U/L ALT 119 H (4-34) U/L Lactate Dehydrogenase 890 H (313-618) U/L C-Reactive Protein 4.9 H (<1.0) mg/dL Albumin 3.4 L (3.5-5.0) g/dL Microbiology - Last 24 Hours (Table) 05/20/21 04:17 Urine Culture - Preliminary Urine,Voided Diabetes panel 05/21/21 Range/Units 07:07 Sodium 139 (137-145) mmol/L Potassium 3.6 (3.5-5.1) mmol/L Chloride 105 (98-107) mmol/L Carbon Dioxide 28 (22-30) mmol/L BUN 14 (7-17) mg/dL Creatinine 0.33 L (0.52-1.04) mg/dL Glucose 116 H (74-99) mg/dL Calcium 9.3 (8.4-10.2) mg/dL AST 54 H (14-36) U/L ALT 119 H (4-34) U/L Alkaline Phosphatase 99 (38-126) U/L Total Protein 7.2 (6.3-8.2) g/dL Albumin 3.4 L (3.5-5.0) g/dL Calcium panel 05/21/21 Range/Units 07:07 Calcium 9.3 (8.4-10.2) mg/dL Albumin 3.4 L (3.5-5.0) g/dL Pituitary panel 05/21/21 Range/Units 07:07 Sodium 139 (137-145) mmol/L Potassium 3.6 (3.5-5.1) mmol/L Chloride 105 (98-107) mmol/L Carbon Dioxide 28 (22-30) mmol/L BUN 14 (7-17) mg/dL Creatinine 0.33 L (0.52-1.04) mg/dL Glucose 116 H (74-99) mg/dL Calcium 9.3 (8.4-10.2) mg/dL Adrenal panel 05/21/21 Range/Units 07:07 Sodium 139 (137-145) mmol/L Potassium 3.6 (3.5-5.1) mmol/L Chloride 105 (98-107) mmol/L Carbon Dioxide 28 (22-30) mmol/L BUN 14 (7-17) mg/dL Creatinine 0.33 L (0.52-1.04) mg/dL Glucose 116 H (74-99) mg/dL Calcium 9.3 (8.4-10.2) mg/dL Total Bilirubin 0.7 (0.2-1.3) mg/dL AST 54 H (14-36) U/L ALT 119 H (4-34) U/L Alkaline Phosphatase 99 (38-126) U/L Total Protein 7.2 (6.3-8.2) g/dL Albumin 3.4 L (3.5-5.0) g/dL Assessment and Plan Assessment: Impression: Gross hematuria secondary to catheter trauma, aggravated by anticoagulation. Covid pneumonia Recommendations: The significance of the reji in the urine with an indwelling catheter is debatable. If the catheter needs to stay in for the intensive care doctors longer than 24-48 hours it should be exchanged as it has been in 30 days. If it's coming out the next day or so he can be removed then. A urine analysis and culture should be obtained 48 hours after the catheter is removed. Time with Patient: Greater than 30
--- NOTE | 2021-05-21 17:10 | PN ---
PROGRESS NOTE DATE OF SERVICE: 05/21/2021 CHIEF COMPLAINT: COVID pneumonia with respiratory failure. HISTORY OF PRESENT ILLNESS: This lady is doing well. She was taken off the ventilator yesterday and she a trach mask in place. She is awake and alert. She is complaining of a lot of vaginal irritation or burning or discomfort. PHYSICAL EXAMINATION: Vital signs are normal. Chest demonstrates good breath sounds. Cardiac exam is normal. Abdomen is soft, nontender. She is fully awake and alert. IMPRESSION: 1. COVID pneumonia. 2. Respiratory failure. 3. Vaginal pain or burning. PLAN: 1. Trach tube is going to be removed today. 2. Consult with Speech Therapy for swallow evaluation and advancing diet. 3. Consult with Urology for hematuria. 4. Remove Pena catheter. 5. Consult Gynecology for vaginal pain. MMODL / IJN: [id number] /
[2021-05-21] MEDS: ALPRAZolam 0.5 MG TAB PO PRN (20:49)
--- NOTE | 2021-05-21 23:47 | P.PN ---
Subjective Progress Note Date: 05/20/21 Principal diagnosis: Pneumonia and bacteremia Interval history : Patient is a 46-year-old -[place] female with admission diagnoses of Acute COVID-19 pneumonia subsequently admission to the hospital with worsening respiratory status has been diagnosed with a DVT and PE. The patient is status post trach and PEG tube placement as of 05/10/2021 On today's evaluation that is 05/20/2021, The patient remains to be afebrile, the patient is hemodynamically stable not requiring any pressor support , the patient FiO2 is stable at 40 %, no purulent secretion through the ET or diarrhea has been reported by the nursing staff, patient is awake and alert and the patient is following commands, patient currently has been complaining of some suprapubic discomfort and did have a cloudy urine concern for UTI Objective - Vital Signs Vital signs: Vital Signs Temp 99.2 F 05/20/21 20:00 Pulse 111 H 05/20/21 22:00 Resp 21 05/20/21 22:00 BP 132/85 05/20/21 22:00 Pulse Ox 97 05/20/21 22:00 Intake & Output 05/20/21 05/20/21 05/21/21 06:59 18:59 06:59 Intake Total 915 1100 330 Output Total 485 825 190 Balance 430 275 140 Weight 95.2 kg 95.2 kg Intake: IV 220 240 80 Sodium Chloride 0.9% 1, 220 240 80 000 ml @ 20 mls/hr IV . Q24H [facility] Rx#:[id number] Intake, IV Titration 200 Amount Potassium Chloride 20 meq 200 In Water For Injection 1 100ml.bag @ 50 mls/hr IVPB Q2H [facility] Rx#: [id number] Tube Feeding 605 660 220 Other 90 30 Output: Urine 485 825 190 Other: Voiding Method Indwelling Catheter Indwelling Catheter Indwelling Catheter # Bowel Movements 1 1 ABP, PAP, CO, CI - Last Documented Arterial Blood Pressure 147/74 - Exam GENERAL DESCRIPTION: Middle-aged female intubated on the vent RESPIRATORY SYSTEM: Unlabored breathing , decreased breath sounds at bases, no wheeze HEART: S1 S2 regular rate and rhythm ,no loud murmurs ABDOMEN: Soft , no tenderness EXTREMITIES: 2+ edema feet - Labs CBC & Chem 7: 05/21/21 07:07 05/21/21 07:07 Labs: Abnormal Lab Results - Last 24 Hours (Table) 05/20/21 05/20/21 Range/Units 04:17 05:33 Potassium 3.4 L (3.5-5.1) mmol/L Creatinine 0.44 L (0.52-1.04) mg/dL Glucose 146 H (74-99) mg/dL AST 44 H (14-36) U/L ALT 92 H (4-34) U/L Albumin 3.4 L (3.5-5.0) g/dL Urine Appearance Turbid H (Clear) Urine Protein 2+ H (Negative) Urine Blood Large H (Negative) Ur Leukocyte Esterase Moderate H (Negative) Urine RBC >182 H (0-5) /hpf Urine WBC 103 H (0-5) /hpf Urine Mucus Moderate H (None) /hpf Microbiology - Last 24 Hours (Table) 05/20/21 04:17 Urine Culture - Preliminary Urine,Voided Assessment and Plan (1) Positive blood culture Current Visit: Yes Status: Acute Code(s): R78.81 - BACTEREMIA SNOMED Code(s): 975478888 (2) COVID-19 Current Visit: Yes Status: Acute Code(s): U07.1 - COVID-19 SNOMED Code(s): 078505178 Plan: 1-patient with a positive blood culture which has been finalized and staph epi likely skin contaminant, Repeat blood culture has been negative so far, patient is being monitored off vancomycin 2-acute respiratory failure which is multifactorial possible component of pneumonia, Sputum has been usual respiratory pat, patient white count is normal, patient has completed a course of IV cefepime, 3-patient with a suprapubic discomfort did have a positive the concern for a catheter associated UTI Rocephin has been added to continue on waiting for the culture finalized Time with Patient: Less than 30
--- NOTE | 2021-05-21 23:49 | P.PN ---
Subjective Progress Note Date: 05/21/21 Principal diagnosis: Pneumonia and bacteremia Interval history : Patient is a 46-year-old -[place] female with admission diagnoses of Acute COVID-19 pneumonia subsequently admission to the hospital with worsening respiratory status has been diagnosed with a DVT and PE. The patient is status post trach and PEG tube placement as of 05/10/2021 On today's evaluation that is 05/21/2021, The patient continues to be afebrile, the patient trach has been decannulated and she is currently breathing comfortably nasal cannula oxygen patient denies having any chest pain shortness of breath or cough no abdominal pain has been causing some burning in the suprapubic region Objective - Vital Signs Vital signs: Vital Signs Temp 97.9 F 05/21/21 12:00 Pulse 108 H 05/21/21 12:00 Resp 18 05/21/21 12:00 BP 132/96 05/21/21 12:00 Pulse Ox 93 L 05/21/21 12:00 Intake & Output 05/20/21 05/21/21 05/21/21 18:59 06:59 18:59 Intake Total 1100 990 500 Output Total 825 630 615 Balance 275 360 -115 Weight 95.2 kg 97.5 kg Intake: IV 240 240 120 Sodium Chloride 0.9% 1, 240 240 120 000 ml @ 20 mls/hr IV . Q24H [facility] Rx#:[id number] Intake, IV Titration 200 50 Amount Potassium Chloride 20 meq 200 In Water For Injection 1 100ml.bag @ 50 mls/hr IVPB Q2H [facility] Rx#: [id number] cefTRIAXone 1 gm In 50 Sodium Chloride 0.9% 50 ml @ 100 mls/hr IVPB Q24HR [facility] Rx#:[id number] Tube Feeding 660 660 330 Other 90 Output: Urine 825 630 615 Other: Voiding Method Indwelling Catheter Indwelling Catheter Indwelling Catheter # Bowel Movements 1 1 ABP, PAP, CO, CI - Last Documented Arterial Blood Pressure 147/74 - Exam GENERAL DESCRIPTION: Middle-aged female lying in bed in no distress RESPIRATORY SYSTEM: Unlabored breathing , decreased breath sounds at bases, no wheeze HEART: S1 S2 regular rate and rhythm ABDOMEN: Soft , no tenderness EXTREMITIES: 2+ edema feet - Labs CBC & Chem 7: 05/23/21 05:23 05/23/21 05:23 Labs: Abnormal Lab Results - Last 24 Hours (Table) 05/21/21 Range/Units 07:07 Creatinine 0.33 L (0.52-1.04) mg/dL Glucose 116 H (74-99) mg/dL AST 54 H (14-36) U/L ALT 119 H (4-34) U/L Lactate Dehydrogenase 890 H (313-618) U/L C-Reactive Protein 4.9 H (<1.0) mg/dL Albumin 3.4 L (3.5-5.0) g/dL Microbiology - Last 24 Hours (Table) 05/20/21 04:17 Urine Culture - Final Urine,Voided Esthela albicans Assessment and Plan (1) Positive blood culture Current Visit: Yes Status: Acute Code(s): R78.81 - BACTEREMIA SNOMED Code(s): 343597557 (2) COVID-19 Current Visit: Yes Status: Acute Code(s): U07.1 - COVID-19 SNOMED Code(s): 669837173 Plan: 1-patient with a positive blood culture which has been finalized and staph epi likely skin contaminant, Repeat blood culture has been negative so far, patient is being monitored off vancomycin 2-acute respiratory failure which is multifactorial possible component of pneumonia, Sputum has been usual respiratory pat, patient white count is normal, patient has completed a course of IV cefepime, 3-patient with a suprapubic discomfort, burning of urine related to catheter associated UTI , urine showing Esthela albicans discontinue Rocephin and will give short course of oral Diflucan, nursing staff has been advised to discontinue the Pena catheter Time with Patient: Less than 30
[2021-05-22 06:18] LABS: Basophils # (A) 0.1 k/uL (0-0.2); Basophils % (A) 1 %; Eosinophils # (A) 0.4 k/uL (0-0.7); Eosinophils % (A) 6 %; HCT 38.5 % (34.0-46.0); HGB 12.1 gm/dL (11.4-16.0); Lymphocytes # (A) 1.6 k/uL (1.0-4.8); Lymphocytes % (A) 27 %; MCHC 31.5 g/dL (31.0-37.0); MCV 98.5 fL (80.0-100.0); Macrocytosis Slight; Mean Platelet Volume 9.1; Monocytes # (A) 0.4 k/uL (0-1.0); Monocytes % (A) 6 %; Neutrophils # (A) 3.5 k/uL (1.3-7.7); Neutrophils % (A) 56 %; Platelet Count 300 k/uL (150-450); RBC 3.91 m/uL (3.80-5.40); RDW 15.1 % (11.5-15.5); WBC 6.2 k/uL (3.8-10.6)
[2021-05-22 06:47] LABS: ALT 126 U/L (4-34); AST 55 U/L (14-36); African American GFR (CKD) >90 (>60 ml/min/1.73 sqM); Albumin 3.4 g/dL (3.5-5.0); Alkaline Phosphatase 96 U/L (38-126); Anion Gap 4 mmol/L; Blood Urea Nitrogen 14 mg/dL (7-17); Calcium 9.6 mg/dL (8.4-10.2); Carbon Dioxide 32 mmol/L (22-30); Chloride 105 mmol/L (98-107); Glucose 103 mg/dL (74-99); Non-African American GFR(CKD) >90 (>60 ml/min/1.73 sqM); Potassium 3.3 mmol/L (3.5-5.1); Sodium 141 mmol/L (137-145); Total Bilirubin 0.6 mg/dL (0.2-1.3); Total Protein 7.4 g/dL (6.3-8.2)
[2021-05-22] MEDS: LEVOTHYROXINE 112 MCG TAB PO SCH (07:11)
[2021-05-22] MEDS: POTASSIUM BICARBONATE/CIT AC 20 MEQ TABLET.EFF NG-TUBE SCH ×2 (07:11→08:39)
--- NOTE | 2021-05-22 08:11 | XR ---
EXAMINATION TYPE: XR chest 1V portable DATE OF EXAM: 05/22/2021 COMPARISON: Chest x-ray 05/21/2021 HISTORY: Covid pneumonia TECHNIQUE: Single frontal view of the chest is obtained. FINDINGS: Tracheostomy tube has been removed. Right-sided PICC line is again seen and is stable, cat heter is coursing into the right atrium, tip not well seen. Bilateral airspace disease is present. Ca rdiomediastinal silhouette thought to be stable accounting for expiratory rotated technique. There ar e overlying artifacts. No evident pneumothorax or pleural effusion. IMPRESSION: Findings consistent with patient's history of Covid pneumonia
[2021-05-22] MEDS: APIXABAN 5 MG TAB PO SCH ×2 (08:39→20:01)
[2021-05-22] MEDS: PANTOPRAZOLE 40 MG/10 ML VIAL IVP SCH (08:39)
[2021-05-22] MEDS: FLUCONAZOLE 100 MG TAB PO SCH (08:39)
[2021-05-22] MEDS: ZINC SULFATE 220 MG CAP PO SCH (08:39)
[2021-05-22] MEDS: CHOLECALCIFEROL 125 MCG (5000 IU) TABLET PO SCH (08:39)
[2021-05-22] MEDS: QUEtiapine 50 MG TAB PO SCH ×2 (08:39→21:54)
[2021-05-22] MEDS: ASCORBIC ACID 500 MG TAB PO SCH (08:39)
[2021-05-22] MEDS: busPIRone HCl 5 MG TAB PO SCH ×2 (08:39→21:54)
[2021-05-22] MEDS: MICONAZOLE NITRATE 2% CREAM 14 GM TUBE TOPICAL SCH ×2 (08:40→23:15)
[2021-05-22] MEDS: CHLORHEXIDINE GLUCONATE 15 ML CUP MUCOUS MEM SCH (08:40)
[2021-05-22] MEDS: bisacodyL 10 MG SUPP RECTAL SCH (08:40)
[2021-05-22] MEDS ORDERED: ANIDULAFUNGIN 100 MG in SODIUM CHLORIDE 0.9% 100 ML IVPB SCH (09:00)
[2021-05-22] MEDS: HYDROmorphone 1 MG/ML 1 ML SYRINGE IVP PRN (10:43)
--- NOTE | 2021-05-22 12:38 | P.PN ---
Subjective Progress Note Date: 05/22/21 Principal diagnosis: Acute hypoxic respiration is secondary to COVID-19 pneumonia On 05/20/2021 patient seen in follow-up in the intensive care unit, she is awake and alert, oriented 3, she is quite pleasant, she is in good spirits, she is resting in bed she is watching television. She is trached to the ventilator and currently she is on pressure-support 5 and CPAP of 5 with FiO2 of 40% tolerating it quite well so far. She has been tolerating pressure-support trials with a past few days. Her anxiety level is significantly improved, she is not requiring any sedation, she is on Seroquel 50 mg twice daily, with when necessary doses of IV Dilaudid 0.5 mg every 6 hours, and intermittent doses of Ativan for intermittent anxiety. Today's chest x-ray showed diffuse bilateral infiltrates that are stable in appearance. The morning's labs have been reviewed, blood gas showing pO2 of 90, pCO2 of 39 and pH of 7.47, this was done on pressure-support of 5 and CPAP of 5 with FiO2 of 40%. Her CBC is completely within normal limits, with little, is 9.0, hemoglobin is 12.1, sodium is 140, potassium is 3.4 was replaced per protocol, chloride is 106, CO2 is 27, B1 is 14 creatinine 0.44. Urinalysis showed turbid urine, with large amount of blood, moderate amount of leukocyte esterase, increased white blood cells of around 103. Urine culture has been sent and is pending at this time. Clinically patient is fairly asymptomatic. Currently not on any antibiotics however in view of her significantly abnormal urinalysis we will start the patient on empiric Rocephin until we get results of the urine culture back. She denies any acute distress, no worsening dyspnea or cough, she is currently unemployed and was seen at a rate of 10 ML per hour, she is on vital high-protein at a rate of 55 with a goal of 55 and standard water flushes. Her tracheostomy site is clean dry and intact, tube site is clean dry and intact. She currently remains on Decadron and her dose is being weaned and is currently down to 2 mg daily, she is on Eliquis 5 mg twice daily, she is on multivitamins. Reevaluated today on 05/21/2021, patient has been weaning nicely over the last 24 hours patient did very well with pressure support and CPAP initially, and over the last 24 hours we had the patient on trach collar. She has been tolerating trach collar quite well. She is on 40% FiO2, does not seem to be in any distress, hence I went ahead today and proceeded to decannulation of the tra cheostomy. This was done at bedside, and she was placed on a nasal cannula. Patient was extremely excited after the tracheostomy came out, and a sterile dressing was placed over the surgical incision. CBC is relatively normal electrolytes are normal chest x-ray continues to show bilateral chronic infiltrates or post inflammatory changes from previous COVID-19 pneumonia Reevaluated today on 05/22/2021, patient remains in the ICU, patient was decannulated yesterday, and she continues to do great. Relatively asymptomatic except generally weak, seen by rehab physician and she may go to rehab today or tomorrow. Discussed her status with special events planner and hopefully the patient will get of bed at [facility] rehab today. Labs today are unremarkable. Renal profile is normal potassium is a bit low, being corrected. Chest x-ray shows post inflammatory changes from severe COVID-19 pneumonia. Objective - Vital Signs Vital signs: Vital Signs Temp 98.0 F 05/22/21 08:00 Pulse 93 05/22/21 09:00 Resp 19 05/22/21 09:00 BP 137/80 05/22/21 09:00 Pulse Ox 96 05/22/21 09:00 Intake & Output 05/21/21 05/22/21 05/22/21 18:59 06:59 18:59 Intake Total 1950 1245 250 Output Total 1265 421 355 Balance 685 824 -105 Intake: IV 240 240 40 Sodium Chloride 0.9% 1, 240 240 40 000 ml @ 20 mls/hr IV . Q24H [facility] Rx#:[id number] Intake, IV Titration 1050 200 Amount Anidulafungin 200 mg In 1000 200 Sodium Chloride 0.9% 200 ml @ 84 mls/hr IVPB ONCE ONE Rx#:[id number] cefTRIAXone 1 gm In 50 Sodium Chloride 0.9% 50 ml @ 100 mls/hr IVPB Q24HR [facility] Rx#:[id number] Tube Feeding 660 715 180 Other 90 30 Output: Urine 1265 420 355 Stool 1 Other: Voiding Method Indwelling Catheter Indwelling Catheter Indwelling Catheter # Bowel Movements 1 1 ABP, PAP, CO, CI - Last Documented Arterial Blood Pressure 147/74 - Exam Physical Exam revealed a 46-year-old -Nepalese female, in no distress, on nasal cannula 4 L. Head: Atraumatic, normocephalic, has a dressing over her stoma. HEENT:[Neck is supple.] [No neck masses.] [No thyromegaly.] [No JVD.] No a denopathy is appreciated. Chest: [Symmetrical chest expansion crackles at the bases. Cardiac Exam: [Normal S1 and S2, no S3 gallop, no murmur.] Abdomen: [Soft, nontender, no megaly, no rebound, no guarding, normal bowel sounds.] Extremities: [No clubbing, no edema, no cyanosis.] Good pulses bilaterally. Neurological Exam: Alert oriented 3 no gross focal deficit Psychiatric: Normal mood affect and normal mental status examination. - Labs CBC & Chem 7: 05/22/21 05:43 05/22/21 05:43 Labs: Abnormal Lab Results - Last 24 Hours (Table) 05/22/21 Range/Units 05:43 Potassium 3.3 L (3.5-5.1) mmol/L Carbon Dioxide 32 H (22-30) mmol/L Creatinine 0.43 L (0.52-1.04) mg/dL Glucose 103 H (74-99) mg/dL AST 55 H (14-36) U/L ALT 126 H (4-34) U/L Albumin 3.4 L (3.5-5.0) g/dL Microbiology - Last 24 Hours (Table) 05/20/21 04:17 Urine Culture - Final Urine,Voided Esthela albicans Assessment and Plan Assessment: Impression: Acute hypoxic respiratory failure secondary to COVID-19 pneumonia, patient is not vaccinated. Diagnosed initially on 04/13/2021, hospitalized and discharged home on 04/18, readmitted and intubated on 04/27/2021, remains intubated and mechanically ventilated. Initially placed on Baricitinib which was discontinued because of concern of infection and elevated pro calcitonin. Status post t racheostomy on 05/10/2021, placed on trach collar for the last 24 hours, extubated/D cannulated on 05/21/2021. Continues to do well on 05/22, and I plan to arrange for the patient to have rehabilitation. She was already seen by Dr. estrada and the plan is to transfer the patient to a rehabilitation facility hopefully today. Acute right lower lobe pulmonary embolism, remains on Eliquis 5 mg twice a day. History of hypothyroidism History of marijuana smoking Critical illness polyneuropathy Recommendation: We will arrange for possible rehab. Today. Continue Rocephin and awaiting urine cultures, urine is showing Esthela, will start the patient on Diflucan. Continue Eliquis Possibly discharge today Time with Patient: Less than 30
--- NOTE | 2021-05-22 12:53 | P.OBCN ---
History of Present Illness Consult date: 05/22/21 Reason for consult: other (vaginal candidiasis) Chief complaint: covid pneumonia History of present illness: 46 year old patient well known to me has been hospitalized for weeks due to covid pneumonia. I was consulted for a yeast infection. She has been having some discomfort, buring, itching and white discharge. microbiology grew esthela albicans and she is already on diflucan daily now since it was noticed. Review of Systems All systems: negative Constitutional: Denies chills, Denies fever Eyes: denies blurred vision, denies pain Ears, nose, mouth and throat: Denies headache Cardiovascular: Denies chest pain, Denies shortness of breath Respiratory: Denies cough Gastrointestinal: Denies abdominal pain, Denies diarrhea, Denies nausea, Denies vomiting Genitourinary: Denies dysuria, Denies hematuria Musculoskeletal: Denies myalgias Integumentary: Denies pruritus, Denies rash Neurological: Denies numbness, Denies weakness Psychiatric: Denies anxiety, Denies depression Endocrine: Denies fatigue, Denies weight change Past Medical History Past Medical History: GERD/Reflux, Pneumonia (COVID 19 infection on 04/11/2021), Thyroid Disorder Additional Past Medical History / Comment(s): overactive bladder History of Any Multi-Drug Resistant Organisms: None Reported Past Surgical History: Hysterectomy Additional Past Surgical History / Comment(s): partial hysterectomy, 09/11/14 thyroid removal Past Anesthesia/Blood Transfusion Reactions: No Reported Reaction Past Psychological History: Anxiety Smoking Status: Never smoker Past Alcohol Use History: Occasional Past Drug Use History: Marijuana Additional Drug Use History / Comment(s): occassional use of marijuana per pt - Past Family History Mother Family Medical History: Cancer, Hypertension Additional Family Medical History / Comment(s): colon cancer. maternal aunt with breast cancer age 40 Sister(s) Family Medical History: Cancer Additional Family Medical History / Comment(s): breast cancer age 49 Father Family Medical History: Hypertension Additional Family Medical History / Comment(s): paternal gradmother breast cancer age 80 Medications and Allergies Home Medications Medication Instructions Recorded Confirmed Type Levothyroxine Sodium [Synthroid] 112 mcg PO DAILY 04/13/21 04/20/21 History predniSONE 50 mg PO DAILY #5 tab 04/21/21 Rx Allergies Allergy/AdvReac Type Severity Reaction Status Date / Time No Known Allergies Allergy Verified 04/20/21 23:23 Exam Osteopathic Statement: *. No significant issues noted on an osteopathic structural exam other than those noted in the History and Physical/Consult. Vital Signs Temp Pulse Resp BP Pulse Ox 05/22/21 09:00 93 19 137/80 96 05/22/21 08:00 98.0 F 114 H 23 130/79 91 L 05/22/21 07:00 101 H 29 H 130/79 95 05/22/21 06:00 90 29 H 128/75 95 05/22/21 05:00 93 29 H 128/75 92 L 05/22/21 04:00 98.4 F 96 24 134/77 95 05/22/21 03:00 92 22 134/77 97 05/22/21 02:00 92 21 134/77 95 05/22/21 01:00 93 22 95 05/22/21 00:00 98.7 F 93 21 140/85 98 05/21/21 23:00 90 22 97 05/21/21 22:00 90 20 97 05/21/21 21:00 91 26 H 146/87 96 05/21/21 20:00 97.6 F 92 29 H 137/86 95 05/21/21 19:00 111 H 13 137/86 94 L 05/21/21 18:00 95 22 137/86 97 05/21/21 17:00 105 H 42 H 137/86 93 L 05/21/21 16:00 98.6 F 109 H 26 H 143/86 89 L 05/21/21 15:32 95 05/21/21 15:00 121 H 32 H 143/86 93 L 05/21/21 14:00 94 28 H 143/86 98 05/21/21 13:00 123 H 16 143/86 90 L Intake and Output 05/21/21 05/22/21 05/22/21 22:59 06:59 14:59 Intake Total 1645 700 250 Output Total 545 276 355 Balance 1100 424 -105 Intake: IV 160 160 40 Sodium Chloride 0.9% 1, 160 160 40 000 ml @ 20 mls/hr IV . Q24H [facility] Rx#:[id number] Intake, IV Titration 1000 Amount Anidulafungin 200 mg In 1000 Sodium Chloride 0.9% 200 ml @ 84 mls/hr IVPB ONCE ONE Rx#:[id number] Tube Feeding 455 480 180 Other 30 60 30 Output: Urine 545 275 355 Stool 1 Other: Voiding Method Indwelling Catheter Indwelling Catheter Indwelling Catheter # Bowel Movements 1 1 external vaginal exam notes white discharge and mild erythema. Results Result Diagrams: 05/22/21 05:43 05/22/21 05:43 Abnormal Lab Results - Last 24 Hours (Table) 05/22/21 Range/Units 05:43 Potassium 3.3 L (3.5-5.1) mmol/L Carbon Dioxide 32 H (22-30) mmol/L Creatinine 0.43 L (0.52-1.04) mg/dL Glucose 103 H (74-99) mg/dL AST 55 H (14-36) U/L ALT 126 H (4-34) U/L Albumin 3.4 L (3.5-5.0) g/dL Microbiology - Last 24 Hours (Table) 05/20/21 04:17 Urine Culture - Final Urine,Voided Esthela albicans Assessment and Plan (1) COVID-19 Current Visit: Yes Status: Acute Code(s): U07.1 - COVID-19 SNOMED Code(s): 955524124 (2) Vaginal candidiasis Current Visit: Yes Status: Acute Code(s): B37.3 - CANDIDIASIS OF VULVA AND VAGINA SNOMED Code(s): 99105320 Plan: 1. continue diflucan 100mg daily for at least 7 days
--- NOTE | 2021-05-22 12:57 | P.PN ---
Progress Note - Text Therapy notes reviewed and would accept but unfortunately no available beds [facility] currently.
[2021-05-22 13:05] VITALS: BMI 38.0
--- NOTE | 2021-05-22 13:58 | FL ---
Modified barium swallow. HISTORY: Dysphagia. Modified barium swallow was performed with the department of speech pathology. The patient was prese nted with various consistencies of barium. There is no evidence for aspiration or penetration. Full report is to follow from the department of speech pathology. Impression: Normal study.
[2021-05-22] MEDS: SODIUM CHLORIDE 0.9% 500 ML 500 ML IV SCH (15:39)
[2021-05-23] MEDS: LEVOTHYROXINE 112 MCG TAB PO SCH (05:54)
[2021-05-23 06:15] LABS: Basophils # (A) 0.1 k/uL (0-0.2); Basophils % (A) 1 %; Eosinophils # (A) 0.5 k/uL (0-0.7); Eosinophils % (A) 7 %; HCT 43.9 % (34.0-46.0); HGB 13.5 gm/dL (11.4-16.0); Hypochromasia Slight; Lymphocytes # (A) 1.7 k/uL (1.0-4.8); Lymphocytes % (A) 23 %; MCH 30.8 pg (25.0-35.0); MCHC 30.8 g/dL (31.0-37.0); MCV 100.1 fL (80.0-100.0); Macrocytosis Slight; Monocytes # (A) 0.5 k/uL (0-1.0); Monocytes % (A) 6 %; Neutrophils # (A) 4.4 k/uL (1.3-7.7); Neutrophils % (A) 59 %; Platelet Count 319 k/uL (150-450); RBC 4.39 m/uL (3.80-5.40); RDW 14.9 % (11.5-15.5); WBC 7.4 k/uL (3.8-10.6)
[2021-05-23 06:27] LABS: ALT 131 U/L (4-34); African American GFR (CKD) >90 (>60 ml/min/1.73 sqM); Anion Gap 7 mmol/L; Blood Urea Nitrogen 10 mg/dL (7-17); Calcium 10.2 mg/dL (8.4-10.2); Carbon Dioxide 29 mmol/L (22-30); Chloride 103 mmol/L (98-107); Glucose 94 mg/dL (74-99); Non-African American GFR(CKD) >90 (>60 ml/min/1.73 sqM); Sodium 139 mmol/L (137-145); Total Bilirubin 0.9 mg/dL (0.2-1.3); Total Protein 8.5 g/dL (6.3-8.2)
[2021-05-23 06:31] LABS: AST 59 U/L (14-36); Alkaline Phosphatase 103 U/L (38-126); Potassium 4.2 mmol/L (3.5-5.1)
--- NOTE | 2021-05-23 08:21 | XR ---
EXAMINATION TYPE: XR chest 1V portable DATE OF EXAM: 05/23/2021 COMPARISON: Chest x-ray 05/22/2021 HISTORY: Covid pneumonia TECHNIQUE: Single frontal view of the chest is obtained. FINDINGS: Bilateral airspace disease is again seen. No evident pneumothorax or pleural effusion. Car diac mediastinal silhouette is stable. Right-sided PICC line is unchanged. Right hemidiaphragm remain s elevated. IMPRESSION: There may be some slight interval improvement in aeration although there are differences in technique.
[2021-05-23] MEDS: ASCORBIC ACID 500 MG TAB PO SCH (08:58)
[2021-05-23] MEDS: bisacodyL 10 MG SUPP RECTAL SCH (08:58)
[2021-05-23] MEDS: ZINC SULFATE 220 MG CAP PO SCH (08:59)
[2021-05-23] MEDS: busPIRone HCl 5 MG TAB PO SCH ×2 (08:59→21:54)
[2021-05-23] MEDS: APIXABAN 5 MG TAB PO SCH ×2 (08:59→21:54)
[2021-05-23] MEDS: FLUCONAZOLE 100 MG TAB PO SCH (08:59)
[2021-05-23] MEDS: CHOLECALCIFEROL 125 MCG (5000 IU) TABLET PO SCH (08:59)
[2021-05-23] MEDS: QUEtiapine 50 MG TAB PO SCH ×2 (10:06→21:54)
[2021-05-23] MEDS: MICONAZOLE NITRATE 2% CREAM 14 GM TUBE TOPICAL SCH ×2 (10:07→21:54)
[2021-05-23] MEDS: PANTOPRAZOLE 40 MG/10 ML VIAL IVP SCH (10:09)
--- NOTE | 2021-05-23 12:02 | P.PN ---
Subjective Progress Note Date: 05/23/21 Principal diagnosis: Acute COVID-19 pneumonia On 05/06/2021 patient seen in follow-up in the intensive care unit. Patient remains intubated, sedated on assist control mode of ventilation with a rate of 34, tidal [id number], FiO2 50% and PEEP of 12, this was blood gas shows pO2 of 85, pCO2 of 61, and pH of 7.40, and this was done and above-mentioned ventilator settings, patient is sedated with Diprivan and a 60 mics per kilo per minute, and fentanyl at 2.0 mics per kilo per minute, 0.9 normal saline at a rate of 20 ML per hour. She is receiving tube feedings with vital HP at a rate of 21 with a goal of 21, and standard water flushes, today's chest x-ray shows diffuse bi lateral infiltrates and pleural effusions are stable in appearance. Patient currently remains on dexamethasone 6 mg every 12 hours, she is on prophylactic dose of Lovenox 100 mg twice daily, she is on Seroquel 25 mg twice daily, she is on multivitamins, she is on cefepime for antibiotic coverage and Ventolin and Symbicort. Patient's blood culture from 04/27/2021 showed staph epidermidis likely skin contaminant, follow blood culture and sputum cultures have shown no growth, urine culture was also negative. Hemodynamically patient has remained stable, no vasopressor support. She is in sinus mechanism. She has been afebrile. She is tolerating her tube feedings. His labs have been reviewed, white blood cell count is 8.3, hemoglobin is 11.9, sodium is 140, potassium 4.2, chloride is 103, CO2 38, B1 17, creatinine 0.50, AST was 70, improved value, and ALT was 146, fairly stable, alk phos was within normal limits. Her inflammatory markers were improving on the labs from 04/29/2021. Her d-dimer was also improving and was down to 5.07. Her lower extremity Doppler showed a DVT in the right popliteal vein. Patient also had a questionable right lower lobe PE involving subsegmental branches the initial CT angiogram of the chest from 04/24/2021. On 05/07/2021 patient seen in follow-up in intensive care unit, she is currently sedated and intubated on assist control mode of ventilation with a rate of 34, Tylenol 300, FiO2 of 50% and PEEP 8. This morning's blood gas shows pO2 of 98, pCO2 of 57, and pH of 7.44. Today's chest x-ray has been reviewed showing bilateral infiltrates stable in appearance. Patient is currently on 0.9 normal saline at rate of 20 ML per hour, Diprivan and is at 35 mics per kilo per minute, and fentanyl infusion at 1 nadia per kilo per minute, she is tolerating tube feeding she is on vital HP at 21 with standard water flushes 30 mL every 4 hours, today's labs have been reviewed, white blood cell count is 8.3, hemoglobin is 11.7, platelet count is 405, sodium is 136, potassium is 4.3, chloride is 99, CO2 is 37, BUN 16 creatinine 0.46. AST is improving and is down to 69, ALT is 148, relatively stable compared to yesterday, LDH is improved and is down to 835, CRP is 1.0, follow pro-calcitonin is 0.14. Patient remains on cefepime, and she has completed 10 day course of treatment. Single blood culture from was positive for staph epidermidis likely skin contaminant, follow blood cultures urine culture and sputum cultures have shown no growth. She's had no acute events overnight. We will consult the surgical services for possibility tracheostomy and PEG tube placement, the family would like to see if patient can potentially wean from the ventilator, we will proceed with the daily interruption of sedation spontaneous breathing trials today. On 05/08/2021 patient seen in follow-up in intensive care unit, she is sedated and intubated on assist control mode of ventilation with a rate of 34, tidal volume 300, FiO2 of 50% and PEEP of 5. This morning's blood gas showed a pO2 of 71, pCO2 of 50, and pH of 7.47 this was done on the above-mentioned settings. Yesterday patient had failed spontaneous breathing trials, she became very tachypneic, R SBI was 107, her mentation remained altered through the weaning trials, she was not completely awake, she was breathing fast, she was tachycardic, she was requiring Precedex doing the breathing trials. She was placed back on assist control mode of ventilation for the night. Is currently on Diprivan at 50 mics per kilo per minute, and fentanyl at 1.2 mics per kilo per minute, point, seen at a rate of 20 ML per hour, today's chest x-ray has been reviewed showing bilateral airspace disease, ARDS. Her peak pressure on the ventilator this morning is 13, and plateau pressure is 22. Patient is still quite tachypneic, asynchronous with the vent, and subsequently patient was placed on VC+ mode of ventilation with a rate of 28, tidal vital 375, inspiratory time of 0.8 seconds, FiO2 of 50% and PEEP was increased to 10. Patient was adequately sedated, and blood gas was repeated showing pO2 of 64, pCO2 of 52, and pH of 7.[address] was on [address] plus mode of ventilation, and subsequently her PEEP was increased to 12. Patient seems to be breathing more comfortably, she is less tachypneic. The rest of her labs have been reviewed showing white blood cell count of 9.3, hemoglobin of 11.5, sodium is 140, potassium is 3.4, chloride is 104, CO2 is 37, BUN is 15, creatinine 0.52. AST is improving and is down to 59, ALT is 1:30 is also improved, and her LDH is improved and down to 764, CRP is 1.3, patient's pro-calcitonin level was negative at 0.14, patient has completed a course of cefepime. However there is still some thick yellow secretions being suctioned from the ET tube which will be sent for cultures today. Patient currently remains on Decadron 6 mg daily, Lovenox 100 mg twice daily, multivitamins, she is also on Seroquel 50 mg twice daily for underlying anxiety. Patient has failed sedation holiday today. On 05/09/2021 patient seen in follow-up in intensive care unit, she is currently sedated, and intubated on mechanical ventilator, on the pressure assist mode of ventilation, with PI of 20, inspiratory time of 0.9 seconds, FiO2 of 50%, respiratory rate of 28, and PEEP of 12, this morning's blood gas shows pO2 of 63, pCO2 of 56, and pH of 7.44, this was done in the above mentioned vent settings, his chest x-ray is showing findings consistent with a with pneumonia, bilateral airspace disease that appeared to be somewhat less confluent although there are differences in the technique. Patient is currently on Diprivan at 60 mics per kilo per minute, fentanyl drip is at 1.5 mics per kilo per minute, 0.9 at 20 ML per hour. Today's labs have been reviewed, 1 bottle, is 10.0, hemoglobin is 10.8, sodium is 137, potassium is 3.7, chloride is 102, CO2 35, BUN is 13, creatinine 0.33. AST continues to improve and is down to 44, ALT is down to 108, and alkaline phosphatase remains in the normal range at 74, her LDH and CRP were improving on yesterday's labs, today's levels are still pending. Sputum culture was sent yesterday, preliminary Gram stain and final culture are still pending, patient recently completed a full course of cefepime. Most recent pro-calcitonin level was negative at 0.14 on 05/07/2021. She has had no fevers overnight. 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 Surgical consultation was requested for evaluation for tracheostomy and PEG tube placement. Family has made a request to switch surgical consultation to the surgeon of their choosing. Request was accommodated. On 05/20/2021 patient seen in follow-up in the intensive care unit, she is awake and alert, oriented 3, she is quite pleasant, she is in good spirits, she is resting in bed she is watching television. She is trached to the ventilator and currently she is on pressure-support 5 and CPAP of 5 with FiO2 of 40% tolerating it quite well so far. She has been tolerating pressure-support trials with a past few days. Her anxiety level is significantly improved, she is not requiring any sedation, she is on Seroquel 50 mg twice daily, with when necessary doses of IV Dilaudid 0.5 mg every 6 hours, and intermittent doses of Ativan for intermittent anxiety. Today's chest x-ray showed diffuse bilateral infiltrates that are stable in appearance. The morning's labs have been reviewed, blood gas showing pO2 of 90, pCO2 of 39 and pH of 7.47, this was done on pressure-support of 5 and CPAP of 5 with FiO2 of 40%. Her CBC is completely within normal limits, with little, is 9.0, hemoglobin is 12.1, sodium is 140, potassium is 3.4 was replaced per protocol, chloride is 106, CO2 is 27, B1 is 14 creatinine 0.44. Urinalysis showed turbid urine, with large amount of blood, moderate amount of leukocyte esterase, increased white blood cells of around 103. Urine culture has been sent and is pending at this time. Clinically patient is fairly asymptomatic. Currently not on any antibiotics however in view of her significantly abnormal urinalysis we will start the patient on empiric Rocephin until we get results of the urine culture back. She denies any acute distress, no worsening dyspnea or cough, she is currently unemployed and was seen at a rate of 10 ML per hour, she is on vital high-protein at a rate of 55 with a goal of 55 and standard water flushes. Her tracheostomy site is clean dry and intact, tube site is clean dry and intact. She currently remains on Decadron and her dose is being weaned and is currently down to 2 mg daily, she is on Eliquis 5 mg twice daily, she is on multivitamins. On 05/23/2021 patient seen in follow-up on medical surgical floor. Patient was transferred out of intensive care unit yesterday. She was successfully weaned off the ventilator, and decannulated on 05/21/2021, she has tolerated decannulation quite well so far, her tracheostomy stoma is covered with a gauze pad. And patient has been occluding the stoma with a gauze pad and she has been able to speak although her voice is a bit muffled at times. She passed her swallow evaluation, she is tolerating oral intake. Lung sounds reveal diffuse rhonchi, patient has been able to bring up and suction clear colored phlegm, today's chest x-ray has been reviewed showing some slight interval improvement in aeration, with persistent bilateral airspace disease, no evident pneumothorax or pleural effusion. Patient is currently on 4 L of oxygen per nasal cannula, and her pulse ox is 94-99%, vital signs have been stable, hemodynamically stable, she has been afebrile. Today's labs have been reviewed her white count is 7.4, hemoglobin is 13.5, platelet count is 319, electrolytes and renal profile were unremarkable, her AST is 69, relatively stable, and her ALT has increased and is up to 131, alk phos is 103. Her last set of inflammatory markers showed LDH of 890 and CRP of 4.9, significantly improved since admission. Her urinalysis from 2 days ago showed evidence of urinary tract infection, urine culture showed only Esthela albicans. 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 Physically patient is getting stronger, she has been up out of bed with therapy, she has been ambulating and tolerating relation quite well. She qualified for inpatient rehabilitation however there are currently no open beds at the [facility] inpatient rehabilitation center. Objective - Vital Signs Vital signs: Vital Signs Temp 98.7 F 05/23/21 07:17 Pulse 85 05/23/21 10:10 Resp 17 05/23/21 07:17 BP 139/86 05/23/21 10:10 Pulse Ox 99 05/23/21 07:17 Intake & Output 05/22/21 05/23/21 05/23/21 18:59 06:59 18:59 Intake Total 250 Output Total 605 Balance -355 Weight 97.5 kg Intake: IV 40 Sodium Chloride 0.9% 1, 40 000 ml @ 20 mls/hr IV . Q24H ON LICENSE OF [facility] Rx#:[id number] Tube Feeding 180 Other 30 Output: Urine 605 Other: Voiding Method Indwelling Catheter Bedside Commode # Voids 2 # Bowel Movements 1 3 ABP, PAP, CO, CI - Last Documented Arterial Blood Pressure 147/74 - Exam GENERAL EXAM: Awake and alert, quite comfortable, responsive, and interactive 46-year-old female, patient is oriented 3, she is sitting up in the recliner, she is getting ready to ambulate with therapy, she has been decannulated, she is currently on 4 L of oxygen per nasal cannula satting 99%. Patient has been able to speak although her voice is muffled, her tracheostomy has been covered with the gauze, and patient was decannulation is on 05/21/2021 HEAD: Normocephalic/atraumatic. EYES: Normal reaction of pupils, equal size. Conjunctiva pink, sclera white. NOSE: Clear with pink turbinates. THROAT: No erythema or exudates. NECK: No masses, no JVD, no thyroid enlargement, no adenopathy. Midline tracheostomy stoma has been covered with a dressing, trach has been removed on 05/21/2021 CHEST: No chest wall deformity. Symmetrical expansion. LUNGS: Equal air entry with no crackles, wheeze, rhonchi or dullness. CVS: Regular rate and rhythm, normal S1 and S2, no gallops, no murmurs, no rubs ABDOMEN: Soft, nontender. No hepatosplenomegaly, normal bowel sounds, no gu arding or rigidity. EXTREMITIES: No clubbing, no edema, no cyanosis, 2+ pulses and upper and lower e xtremities. MUSCULOSKELETAL: Muscle strength and tone normal. SPINE: No scoliosis or deformity SKIN: No rashes CENTRAL NERVOUS SYSTEM: awake and alert and oriented 3 No focal deficits, tone is normal in all 4 extremities. - Labs CBC & Chem 7: 05/23/21 05:23 05/23/21 05:23 Labs: Abnormal Lab Results - Last 24 Hours (Table) 05/23/21 05/23/21 Range/Units 05:23 05:23 MCV 100.1 H (80.0-100.0) fL MCHC 30.8 L (31.0-37.0) g/dL Creatinine 0.42 L (0.52-1.04) mg/dL AST 59 H (14-36) U/L ALT 131 H (4-34) U/L Total Protein 8.5 H (6.3-8.2) g/dL Assessment and Plan Plan: Assessment: #1. Acute hypoxic respiratory failure secondary to COVID-19 pneumonia. Improved, patient was successfully weaned off the ventilator, and decannulated on 05/21/2021. Patient is a non-vaccinated adult. Initial diagnosis was established on 04/13/2021, patient was hospitalized and discharged home on 04/18/2021, readmitted with worsening hypoxia and dyspnea, and intubated on 04/27/2021. She remains intubated and mechanically ventilated today on 05/06/2021. Patient was initially placed on Baricitinib which was discontinued because of concern of infection related to mildly elevated pro calcitonin. Currently pro calcitonin level is improved, patient completed cefepime for empiric antibiotic coverage with no positive bacterial growth on cultures except for staph epidermidis on blood culture. Follow-up cultures have been negative thus far. Patient has completed a course of cefepime. Currently her dyspnea and hypoxia have significantly improved, and she is awake and alert, she is status post tracheostomy tube insertion on 05/10/2021, patient has a #[address] tracheostomy tube in place, she is currently tolerating pressure support 5 and CPAP of 5 trials. Today she'll be placed on 40% trach collar on 05/20/2021. Patient was successfully decannulated on 05/21/2021, tolerating decannulation quite well so far #2. Acute right lower lobe pulmonary embolism and right popliteal DVT, was on therapeutic doses of Lovenox, has been started on Eliquis 5 mg twice daily #3. Acute respiratory acidosis, improved #4. History of hypothyroidism #5. History of marijuana smoking #6. Anxiety #7. Increased LFTs, likely related to viral pneumonia, improved #8. Elevated inflammatory markers, improving #9. Critical illness polyneuropathy, significantly improved, and patient qualified for inpatient rehab admission, currently awaiting a bed #10. Vaginal candidiasis, currently on Diflucan Plan: Today's chest x-ray, blood gases, labs reviewed Patient continues to tolerate decannulation quite well, she currently remains on 4 L of oxygen maintaining stable O2 saturations above 96% She has passed swallow evaluation, tolerating oral intake She has completed her Decadron, she continues on oral anticoagulation with Eliquis She is participating with physical therapy, she has been tolerating ambulation Patient has qualified for inpatient rehab placement however there are no open beds currently Discharge planning is following, and will follow-up on the current update and bed availability at [facility] In the meantime continue with current therapies, continue Diflucan for vaginal candidiasis I performed a history & physical examination of the patient and discussed their management with my nurse practitioner, Maribeth Pereira. I reviewed the nurse practitioner's note and agree with the documented findings and plan of care. Lung sounds are positive for dim breath sounds throughout the lung tai. The findings and the impression was discussed with the patient. I attest to the documentation by the nurse practitioner. Time with Patient: Less than 30
[2021-05-23] MEDS: SODIUM CHLORIDE 0.9% 500 ML 500 ML IV SCH (14:36)
--- NOTE | 2021-05-23 15:21 | PN ---
PROGRESS NOTE DATE OF SERVICE: 05/22/2021 CHIEF COMPLAINT: COVID pneumonia and respiratory failure. HISTORY OF PRESENT ILLNESS: This lady is doing well. She is now awake and alert and breathing well. Trach tube has been removed. She is able swallow and diet is being advanced. PHYSICAL EXAMINATION: Vital signs are normal. Color is good. She is awake and alert. Breath sounds are heard bilaterally and the cardiac exam is normal. Abdomen is soft and nontender. IMPRESSION: 1. Severe COVID pneumonia. 2. Respiratory failure. PLAN: Progress activity and diet. She will probably move out of the ICU soon. MMODL / IJN: [id number] /
--- NOTE | 2021-05-23 15:30 | PN ---
PROGRESS NOTE DATE OF SERVICE: 05/23/2021 CHIEF COMPLAINT: COVID pneumonia. HISTORY OF PRESENT ILLNESS: This lady is doing fairly well. She is now out of ICU in the step-down unit. She is doing well. She is not complaining of any chest pain or shortness of breath. PHYSICAL EXAMINATION: Breath sounds are quite diminished, but they are clear on both sides. Cardiac exam is normal. Abdomen is soft, nontender. IMPRESSION: COVID pneumonia. PLAN: Progress activity and diet while looking into discharge plan. MMODL / IJN: [id number] /
--- NOTE | 2021-05-23 22:37 | P.PN ---
Subjective Progress Note Date: 05/23/21 Principal diagnosis: Pneumonia and bacteremia Interval history : Patient is a 46-year-old -[place] female with admission diagnoses of Acute COVID-19 pneumonia subsequently admission to the hospital with worsening respiratory status has been diagnosed with a DVT and PE. The patient is status post trach and PEG tube placement as of 05/10/2021 On today's evaluation that is 05/23/2021, The patient denies any fever or any chills, the patient breathing comfortably nasal cannula oxygen patient denies having any chest pain shortness of breath or cough no abdominal pain, the patient Pena catheter has been discontinued and suprapubic pain has decreased in intensity Objective - Vital Signs Vital signs: Vital Signs Temp 98.7 F 05/23/21 07:17 Pulse 85 05/23/21 10:10 Resp 17 05/23/21 07:17 BP 139/86 05/23/21 10:10 Pulse Ox 99 05/23/21 07:17 Intake & Output 05/22/21 05/23/21 05/23/21 18:59 06:59 18:59 Intake Total 250 Output Total 605 Balance -355 Weight 97.5 kg Intake: IV 40 Sodium Chloride 0.9% 1, 40 000 ml @ 20 mls/hr IV . Q24H [facility] Rx#:[id number] Tube Feeding 180 Other 30 Output: Urine 605 Other: Voiding Method Indwelling Catheter Bedside Commode # Voids 2 # Bowel Movements 1 3 ABP, PAP, CO, CI - Last Documented Arterial Blood Pressure 147/74 - Exam GENERAL DESCRIPTION: Middle-aged female lying in bed in no distress RESPIRATORY SYSTEM: Unlabored breathing , decreased breath sounds at bases, no wheeze HEART: S1 S2 regular rate and rhythm ABDOMEN: Soft , no tenderness EXTREMITIES: 2+ edema feet - Labs CBC & Chem 7: 05/23/21 05:23 05/23/21 05:23 Labs: Abnormal Lab Results - Last 24 Hours (Table) 05/23/21 05/23/21 Range/Units 05:23 05:23 MCV 100.1 H (80.0-100.0) fL MCHC 30.8 L (31.0-37.0) g/dL Creatinine 0.42 L (0.52-1.04) mg/dL AST 59 H (14-36) U/L ALT 131 H (4-34) U/L Total Protein 8.5 H (6.3-8.2) g/dL Assessment and Plan (1) Positive blood culture Current Visit: Yes Status: Acute Code(s): R78.81 - BACTEREMIA SNOMED Code(s): 061742002 (2) COVID-19 Current Visit: Yes Status: Acute Code(s): U07.1 - COVID-19 SNOMED Code(s): 838282428 Plan: 1-patient with a positive blood culture which has been finalized and staph epi likely skin contaminant, Repeat blood culture has been negative so far, patient is being monitored off vancomycin 2-acute respiratory failure which is multifactorial possible component of pneumonia, Sputum has been usual respiratory pat, patient white count is normal, patient has completed a course of IV cefepime, 3-patient with a suprapubic discomfort, burning of urine related to catheter associated UTI , urine showing Esthela albicans , Pena catheter has been discontinued and will give a short course of oral Diflucan Time with Patient: Less than 30
[2021-05-24] MEDS: LEVOTHYROXINE 112 MCG TAB PO SCH (05:53)
[2021-05-24] MEDS: QUEtiapine 50 MG TAB PO SCH ×2 (08:54→21:31)
[2021-05-24] MEDS: APIXABAN 5 MG TAB PO SCH ×2 (08:54→21:26)
[2021-05-24] MEDS: ASCORBIC ACID 500 MG TAB PO SCH (08:54)
[2021-05-24] MEDS: ZINC SULFATE 220 MG CAP PO SCH (08:54)
[2021-05-24] MEDS: CHOLECALCIFEROL 125 MCG (5000 IU) TABLET PO SCH (08:54)
[2021-05-24] MEDS: FLUCONAZOLE 100 MG TAB PO SCH (08:55)
[2021-05-24] MEDS: busPIRone HCl 5 MG TAB PO SCH ×2 (08:55→21:29)
[2021-05-24] MEDS: MICONAZOLE NITRATE 2% CREAM 14 GM TUBE TOPICAL SCH ×2 (08:57→21:31)
--- NOTE | 2021-05-24 09:05 | XR ---
EXAMINATION TYPE: XR chest 1V portable DATE OF EXAM: 05/24/2021 COMPARISON: 05/23/2021 HISTORY: Cough TECHNIQUE: Single frontal view of the chest is obtained. FINDINGS: Right-sided PICC line seen is a diffuse bilateral areas of infiltrate. No pleural effusion or pneumothorax. Heart size stable. Soft tissue artifact overlying chest and abdomen. Calcific tendi nosis of the right shoulder IMPRESSION: Stable diffuse bilateral infiltrate.
[2021-05-24] MEDS: PANTOPRAZOLE 40 MG/10 ML VIAL IVP SCH (11:26)
--- NOTE | 2021-05-24 13:03 | P.PN ---
Subjective Progress Note Date: 05/24/21 The patient is seen today 05/10/2021 in follow-up in the intensive care unit. She remains intubated on mechanical ventilator currently on pressure assist- control mode with a inspiratory pressure of 20, inspiratory time of 0.9. Respiratory rate 28, FiO2 50%, PEEP of 12. Morning blood gases revealed a PaO2 of 89, pCO2 58, pH 7.42. She is sedated on propofol at 75 mg/kg/m. She is on fentanyl at 1.5 mcg/kg/m. Normal saline at KVO. Tube feedings are currently on hold. The plan is for a tracheostomy and PEG tube placements today. Lovenox remains on hold for the same. Chest x-ray continues to reveal bilateral patchy densities consistent with COVID-19 pneumonia. Sputum cultures reveal no growth. White count 10.3. Hemoglobin 10.3. Sodium 139. Potassium 3.7. Creatinine 0.43. Glucose 86. AST 33. ALT 86. Albumin 2.6. She is continued on Decadron, Lovenox, vitamin supplements. Protonix for GI prophylaxis. The patient is seen today 05/11/2021 in follow-up in the intensive care unit. She did undergo tracheostomy tube and PEG tube placements yesterday. She remains on the mechanical ventilator and pressure controlled mode with a inspiratory time of 0.9 seconds inspiratory pressure at 20. Respiratory rate at 28. FiO2 40% and a PEEP of 12. Morning blood gases reveal a P O2 of 73, pCO2 48, pH 7.4. She is sedated on propofol at 75 mcg/kg/m. Fentanyl at 1.5 g/kg per hour. Normal saline at KVO. She remains nothing by mouth until noontime and her tube feedings can be resumed. Chest x-ray continues to show bilateral consolidative airspace infiltrates. Unchanged compared to previous. No evidence of pneumothorax. Sputum culture reveals no growth. White count 8.7. Hemoglobin 10.3. Sodium 138. Potassium 3.5. Creatinine 0.33. AST 31. ALT 77. She is continued on Decadron, Lovenox, vitamin supplements. The patient is seen today 05/12/2021 in follow-up in the intensive care unit. She remains on the mechanical ventilator and pressure assist-control mode with t he inspiration pressure of 20 in the inspiration time of 0.9. Respiratory rate at 28. FiO2 40%. PEEP of 12. Morning blood gases reveal a P O2 of 67, pCO2 47, pH 7.49. She remains on light sedation with propofol at 10 mcg/kg/m, fentanyl at 1.5 mcg/kg per hour. 0.9 normal saline at KVO. She is being nourished with vital HPI 20 ML's per hour. Blood cultures reveal no growth. Sputum culture revealed no growth. White count 10.0. Hemoglobin 11.3. Sodium 139. Potassium 2.6. Bicarb 35. Creatinine 0.45. AST 24. ALT 59. Glucose 95. She is continued on Decadron, Lovenox, vitamin supplements. She remains in a negative balance. Chest x-ray continues to show by bilateral patchy opacit ies. Unchanged. Patient is seen today 05/24/2021 in follow-up on the regular medical floor. She is currently sitting up in bed. Awake and alert in no acute distress. She is maintaining O2 saturations in the high 90s up to 100% on 6 L/m per nasal cannula. She's been afebrile. Hemodynamically stable. Previous tracheostomy tube site is still draining some serous liquid. Dressing currently is dry and intact. She is continued on vitamin supplements. She remains on Eliquis for anticoagulation. TSH 29.6. C. difficile screen is negative. Urine culture positive for Esthela only. She remains on Diflucan. She is tolerating a regular diet now. She is awaiting transfer to inpatient rehabilitation versus [facility] facility. Objective - Vital Signs Vital signs: Vital Signs Temp 98.4 F 05/24/21 07:29 Pulse 97 05/24/21 07:29 Resp 17 05/24/21 07:29 BP 116/72 05/24/21 07:29 Pulse Ox 98 05/24/21 07:29 Intake & Output 05/23/21 05/24/21 05/24/21 18:59 06:59 18:59 Other: Voiding Method Bedside Commode # Voids 5 6 # Bowel Movements 3 ABP, PAP, CO, CI - Last Documented Arterial Blood Pressure 147/74 - Exam GENERAL EXAM: Awake and alert, quite comfortable, responsive, and interactive 46-year-old female, patient is oriented 3, she is sitting up in bed, she has been decannulated, she is currently on 5 L of oxygen per nasal cannula. Patient has been able to speak, her tracheostomy site has been covered with the gauze, and patient was decannulated on 05/21/2021 HEAD: Normocephalic/atraumatic. EYES: Normal reaction of pupils, equal size. Conjunctiva pink, sclera white. NOSE: Clear with pink turbinates. THROAT: No erythema or exudates. NECK: No masses, no JVD, no thyroid enlargement, no adenopathy. Midline tracheostomy stoma has been covered with a dressing, trach has been removed on 05/21/2021 CHEST: No chest wall deformity. Symmetrical expansion. LUNGS: Equal air entry with no crackles, wheeze, rhonchi or dullness. CVS: Regular rate and rhythm, normal S1 and S2, no gallops, no murmurs, no rubs ABDOMEN: Soft, nontender. No hepatosplenomegaly, normal bowel sounds, no guarding or rigidity. EXTREMITIES: No clubbing, no edema, no cyanosis, 2+ pulses and upper and lower extremities. MUSCULOSKELETAL: No significant abnormalities, weak SPINE: No scoliosis or deformity SKIN: No rashes CENTRAL NERVOUS SYSTEM: Awake and alert and oriented 3. No focal deficits, tone is normal in all 4 extremities. - Labs CBC & Chem 7: 05/23/21 05:23 05/23/21 05:23 Labs: Abnormal Lab Results - Last 24 Hours (Table) 05/24/21 Range/Units 04:26 TSH 29.600 H (0.350-5.500) uIU/mL Microbiology - Last 24 Hours (Table) 05/23/21 13:52 Stool Culture - Preliminary Stool Assessment and Plan Assessment: 1 Acute hypoxic respiratory failure secondary to COVID-19 pneumonia. Improved, patient was successfully weaned off the ventilator, and decannulated on 05/21/2021. Patient is a non-vaccinated adult. Initial diagnosis was established on 04/13/2021, patient was hospitalized and discharged home on 04/18/2021, readmitted with worsening hypoxia and dyspnea, and intubated on 04/27/2021. She remains intubated and mechanically ventilated today on 05/06/2021. Patient was initially placed on Baricitinib which was discontinued because of concern of infection related to mildly elevated pro calcitonin. Currently pro calcitonin level is improved, patient completed cefepime for empir ic antibiotic coverage with no positive bacterial growth on cultures except for staph epidermidis on blood culture. Follow-up cultures have been negative thus far. Patient has completed a course of cefepime. Patient was successfully decannulated on 05/21/2021, tolerating decannulation quite well so far 2 Acute right lower lobe pulmonary embolism and right popliteal DVT, was on therapeutic doses of Lovenox, has been started on Eliquis 5 mg twice daily 3 Acute respiratory acidosis, improved 4 History of hypothyroidism 5 History of marijuana smoking 6 Anxiety 7 Increased LFTs, likely related to viral pneumonia, improved 8 Elevated inflammatory markers, improving 9 Critical illness polyneuropathy, significantly improved, and patient qualified for inpatient rehab admission, currently awaiting a bed 10 Vaginal candidiasis, currently on Diflucan Plan: Plan: The patient was seen and evaluated Maintaining good O2 saturations in the 90s on 5 L/m per nasal cannula Doing well since decannulation Awaiting a transfer to inpatient rehab versus subacute rehab We will continue to follow I, the cosigning physician, performed a history & physical examination of the patient. Lungs sounds with coarse crackles in the bilateral bases. Maintaining O2 saturations in the 90s on 5 L/m per nasal cannula. I discussed the assessment and plan of care with my nurse practitioner, Roxane Carrington. I attest to the above note as dictated by her.
--- NOTE | 2021-05-24 16:12 | P.PN ---
Subjective Progress Note Date: 05/24/21 Principal diagnosis: Pneumonia and bacteremia Interval history : Patient is a 46-year-old -Ang[place] female with admission diagnoses of Acute COVID-19 pneumonia subsequently admission to the hospital with worsening respiratory status has been diagnosed with a DVT and PE. The patient is status post trach and PEG tube placement as of 05/10/2021 On today's evaluation that is 05/24/2021, The patient remains to be afebrile, the patient breathing comfortably nasal cannula oxygen, however the patient is complaining of dryness to the nose area, patient denies having any chest pain or cough no abdominal pain, the patient Pena catheter has been discontinued and patient does complain of some burning of urine Objective - Vital Signs Vital signs: Vital Signs Temp 98.7 F 05/24/21 13:45 Pulse 95 05/24/21 13:45 Resp 18 05/24/21 13:45 BP 116/79 05/24/21 13:45 Pulse Ox 99 05/24/21 13:45 Intake & Output 05/23/21 05/24/21 05/24/21 18:59 06:59 18:59 Weight 97.5 kg Other: Voiding Method Bedside Commode # Voids 5 6 # Bowel Movements 3 ABP, PAP, CO, CI - Last Documented Arterial Blood Pressure 147/74 - Exam GENERAL DESCRIPTION: Middle-aged female lying in bed in no distress RESPIRATORY SYSTEM: Unlabored breathing , decreased breath sounds at bases, no wheeze HEART: S1 S2 regular rate and rhythm ABDOMEN: Soft , no tenderness EXTREMITIES: 2+ edema feet - Labs CBC & Chem 7: 05/23/21 05:23 05/23/21 05:23 Labs: Abnormal Lab Results - Last 24 Hours (Table) 05/24/21 Range/Units 04:26 TSH 29.600 H (0.350-5.500) uIU/mL Microbiology - Last 24 Hours (Table) 05/23/21 13:52 Stool Culture - Preliminary Stool Assessment and Plan (1) Positive blood culture Current Visit: Yes Status: Acute Code(s): R78.81 - BACTEREMIA SNOMED Code(s): 025298124 (2) COVID-19 Current Visit: Yes Status: Acute Code(s): U07.1 - COVID-19 SNOMED Code(s): 403611149 Plan: 1-patient with a positive blood culture which has been finalized and staph epi likely skin contaminant, Repeat blood culture has been negative so far, patient is being monitored off vancomycin 2-acute respiratory failure which is multifactorial possible component of pneum onia, Sputum has been usual respiratory pat, patient white count is normal, patient has completed a course of IV cefepime, 3-patient with a suprapubic discomfort, burning of urine related to catheter associated UTI , urine did grew Esthela albicans , Pena catheter has been discontinued and patient will continue with the short course of oral Diflucan Time with Patient: Less than 30
[2021-05-24] MEDS: SODIUM CHLORIDE 0.9% 500 ML 500 ML IV SCH (17:15)
--- NOTE | 2021-05-24 17:46 | PN ---
PROGRESS NOTE CHIEF COMPLAINT: COVID pneumonia. HISTORY OF PRESENT ILLNESS: This lady is doing quite well. We are looking for a rehab facility in the [place] area. REVIEW OF SYSTEMS: She is awake and alert and has no complaints. She is not having any chest pain, abdominal pain, significant shortness of breath, etc. PHYSICAL EXAMINATION: Her vital signs are normal. Chest is clear. Cardiac exam is normal. The abdomen is soft, nontender. IMPRESSION: 1. COVID pneumonia. 2. Respiratory failure. 3. Elevated TSH. PLAN: Continue with current program with gradual increase in diet and activity while looking for rehab facility. MMODL / IJN: [id number] /
[2021-05-24] MEDS: ALPRAZolam 0.5 MG TAB PO PRN (19:50)
[2021-05-25] MEDS: ACETAMINOPHEN TAB 325 MG TAB PO PRN (03:02)
[2021-05-25] MEDS: LEVOTHYROXINE 112 MCG TAB PO SCH (05:59)
--- NOTE | 2021-05-25 07:18 | XR ---
EXAMINATION TYPE: XR chest 1V portable DATE OF EXAM: 05/25/2021 7:02 AM COMPARISON:Chest radiograph from one day prior. TECHNIQUE: XR chest 1V portable Frontal view of the chest. CLINICAL INDICATION:Female, 46 years old with history of covid; FINDINGS: Lungs/Pleura: Similar multifocal airspace opacities. No evidence of pneumothorax or pleural effusion. Pulmonary vascularity: Unremarkable. Heart/mediastinum: Cardiomediastinal silhouette is unremarkable. Musculoskeletal: No acute osseous pathology. Other findings: None Lines/Tubes: Right-sided PICC line with distal tip at the cavoatrial junction. IMPRESSION: 1. Similar multifocal airspace opacities. 2. Stable support line.
[2021-05-25] MEDS: busPIRone HCl 5 MG TAB PO SCH ×2 (09:00→21:24)
[2021-05-25] MEDS: ASCORBIC ACID 500 MG TAB PO SCH (09:00)
[2021-05-25] MEDS: ZINC SULFATE 220 MG CAP PO SCH (09:00)
[2021-05-25] MEDS: APIXABAN 5 MG TAB PO SCH ×2 (09:00→21:24)
[2021-05-25] MEDS: QUEtiapine 50 MG TAB PO SCH ×2 (09:00→21:25)
[2021-05-25] MEDS: FLUCONAZOLE 100 MG TAB PO SCH (09:00)
[2021-05-25] MEDS: CHOLECALCIFEROL 125 MCG (5000 IU) TABLET PO SCH (09:01)
[2021-05-25] MEDS: MICONAZOLE NITRATE 2% CREAM 14 GM TUBE TOPICAL SCH ×2 (10:10→21:25)
[2021-05-25] MEDS: PANTOPRAZOLE 40 MG/10 ML VIAL IVP SCH (10:49)
[2021-05-25] MEDS: SODIUM CHLORIDE 0.9% 500 ML 500 ML IV SCH (16:00)
--- NOTE | 2021-05-25 18:49 | PN ---
PROGRESS NOTE DATE OF SERVICE: 05/25/2021 This 46-year-old woman who was admitted with acute COVID-19 pneumonia, bilateral interstitial pneumonia, had acute hypoxic respiratory failure. Rehab is being suggested at this time. The patient is being closely monitored. The urine culture showed Esthela albicans. Blood culture showed Staph epidermidis. Past medical history reviewed. REVIEW OF SYSTEMS: CARDIOVASCULAR SYSTEM: No angina. RESPIRATION: As mentioned earlier. GI: As mentioned earlier. : As mentioned earlier. NERVOUS SYSTEM: Diffusely weak. CURRENT MEDICATIONS: Reviewed. They include Tylenol, Xanax, Eliquis, vitamin C. Doses and other medications are reviewed. PHYSICAL EXAMINATION: Alert and oriented x3. Pulse 144, blood pressure 139/83, respiration 20, temperature 97.7. HEENT: Conjunctivae normal. CARDIOVASCULAR: S1, S2 muffled. Tachycardic. RESPIRATION: A few scattered rhonchi. ABDOMEN: Soft. NERVOUS SYSTEM: Diffusely weak. LABS: CBC within normal limits. TSH is 29.600. ASSESSMENT: 1. Acute COVID-19 infection with acute bilateral interstitial pneumonia with acute hypoxic respiratory failure. 2. Elevated TSH and hypothyroidism. 3. Gait dysfunction. 4. Hypokalemia. RECOMMENDATIONS AND DISCUSSION: I recommend to continue current medications, continue with the monitoring, symptomatic treatment. PT/OT evaluation. Otherwise, patient is currently on levothyroxine 112 mcg. I would increase to 150 mcg and continue to monitor. The patient also has some tachycardia. Continue with the PT/OT evaluation. Supplement vitamins. See orders for further details. MMODL / IJN: [id number] / MTDD
[2021-05-25] MEDS: METOPROLOL TARTRATE 25 MG TAB PO SCH (21:24)
[2021-05-25] MEDS: ALPRAZolam 0.5 MG TAB PO PRN (21:24)
[2021-05-26] MEDS: LEVOTHYROXINE 50 MCG TAB PO SCH (05:48)
[2021-05-26] MEDS: PANTOPRAZOLE 40 MG/10 ML VIAL IVP SCH (08:26)
[2021-05-26 09:03] LABS: Basophils # (A) 0.04 X 10*3/uL (0.00-0.10); Basophils % (A) 0.7 %; Eosinophils # (A) 0.39 X 10*3/uL (0.04-0.35); Eosinophils % (A) 6.6 %; HCT 38.1 % (37.2-46.3); HGB 12.2 g/dL (12.0-15.0); Immature Grans, Automated 0.8 %; Lymphocytes # (A) 1.59 X 10*3/uL (0.90-5.00); Lymphocytes % (A) 26.8 %; MCH 30.4 pg (27.0-32.0); Mean Platelet Volume 11.6 fL (9.5-12.2); Monocytes # (A) 0.52 X 10*3/uL (0.20-1.00); Monocytes % (A) 8.8 %; NRBC Per 100 WBC 0 /100 WBCS (0.0-0.0); Neutrophils # (A) 3.34 X 10*3/uL (1.80-7.70); Neutrophils % (A) 56.3 %; Platelet Count 378 X 10*3/uL (140-440); RBC 4.01 X 10*6/uL (4.10-5.20); RDW 15.1 % (11.5-14.5); WBC 5.93 X 10*3/uL (4.50-10.00)
[2021-05-26 09:06] LABS: African American GFR (CKD) 142.8 (60.0-200.0); Albumin 3.5 g/dL (3.8-4.9); Albumin/Globulin Ratio 1.07 (1.60-3.17); Anion Gap 10.9 mmol/L (10.00-18.00); BUN/Creat Ratio 6.92 Ratio (12.00-20.00); Calcium 9.6 mg/dL (8.7-10.3); Carbon Dioxide 27.3 mmol/L (20.0-27.5); Globulin 3.3 g/dL (1.6-3.3); Non-African American GFR(CKD) 123.2 (60.0-200.0); Potassium 3.4 mmol/L (3.5-5.5); Total Bilirubin 0.5 mg/dL (0.30-1.20); Total Protein 6.9 g/dL (6.2-8.2)
[2021-05-26] MEDS: CHOLECALCIFEROL 125 MCG (5000 IU) TABLET PO SCH (09:19)
[2021-05-26] MEDS: FLUCONAZOLE 100 MG TAB PO SCH (09:19)
[2021-05-26] MEDS: ZINC SULFATE 220 MG CAP PO SCH (09:19)
[2021-05-26] MEDS: QUEtiapine 50 MG TAB PO SCH ×2 (09:19→21:08)
[2021-05-26] MEDS: ASCORBIC ACID 500 MG TAB PO SCH (09:19)
[2021-05-26] MEDS: METOPROLOL TARTRATE 25 MG TAB PO SCH (09:19)
[2021-05-26] MEDS: busPIRone HCl 5 MG TAB PO SCH ×2 (09:19→21:08)
[2021-05-26] MEDS: APIXABAN 5 MG TAB PO SCH ×2 (09:19→21:08)
--- NOTE | 2021-05-26 09:39 | P.PN ---
Subjective Progress Note Date: 05/25/21 Principal diagnosis: Pneumonia and bacteremia Interval history : Patient is a 46-year-old -Aust[place] female with admission diagnoses of Acute COVID-19 pneumonia subsequently admission to the hospital with worsening respiratory status has been diagnosed with a DVT and PE. The patient is status post trach and PEG tube placement as of 05/10/2021 On today's evaluation that is 05/25/2021, The patient denies any fever or any chills, the patient breathing comfortably nasal cannula oxygen and not complaining of dryness to the nose area after O2 sat showed humidified, patient denies having any chest pain or cough no abdominal pain, the patient Pena catheter has been discontinued and patient burning of urine has resolved Objective - Vital Signs Vital signs: Vital Signs Temp 98.3 F 05/25/21 07:33 Pulse 94 05/25/21 07:33 Resp 19 05/25/21 07:33 BP 113/74 05/25/21 07:33 Pulse Ox 98 05/25/21 07:33 Intake & Output 05/24/21 05/25/21 05/25/21 18:59 06:59 18:59 Intake Total 360 180 Balance 360 180 Weight 97.5 kg Intake: Oral 360 180 Other: # Voids 3 6 # Bowel Movements 2 ABP, PAP, CO, CI - Last Documented Arterial Blood Pressure 147/74 - Exam GENERAL DESCRIPTION: Middle-aged female lying in bed in no distress RESPIRATORY SYSTEM: Unlabored breathing , decreased breath sounds at bases, no wheeze HEART: S1 S2 regular rate and rhythm ABDOMEN: Soft , no tenderness EXTREMITIES: 2+ edema feet - Labs CBC & Chem 7: 05/26/21 05:35 05/26/21 05:35 Assessment and Plan (1) Positive blood culture Current Visit: Yes Status: Acute Code(s): R78.81 - BACTEREMIA SNOMED Code(s): 568962130 (2) COVID-19 Current Visit: Yes Status: Acute Code(s): U07.1 - COVID-19 SNOMED Code(s): 779148688 Plan: 1-patient with a positive blood culture which has been finalized and staph epi likely skin contaminant, Repeat blood culture has been negative so far, patient is being monitored off vancomycin 2-acute respiratory failure which is multifactorial possible component of pneumonia, Sputum has been usual respiratory pat, patient white count is normal, patient has completed a course of IV cefepime, and is currently monitored closely off antibiotic therapy 3-patient with a suprapubic discomfort, burning of urine related to catheter associated UTI , urine did grew Esthela albicans , Pena catheter has been discontinued and patient to continue with the short course of oral Diflucan Time with Patient: Less than 30
[2021-05-26] MEDS: MICONAZOLE NITRATE 2% CREAM 14 GM TUBE TOPICAL SCH ×2 (09:50→21:08)
[2021-05-26] MEDS: SODIUM CHLORIDE 0.9% 500 ML 500 ML IV SCH (11:26)
[2021-05-26] MEDS: FOLIC ACID 1 MG TAB PO SCH (11:55)
[2021-05-26] MEDS: THIAMINE 100 MG TAB PO SCH (11:55)
[2021-05-26] MEDS: MULTIVITAMINS, THERA 1 EACH TAB PO SCH (11:55)
[2021-05-26] MEDS ORDERED: Potassium Replacement Protocol 1 EACH MISC MISCELLANE PRN (18:31)
--- NOTE | 2021-05-26 19:34 | PN ---
PROGRESS NOTE DATE OF SERVICE: 05/26/2020 This 46-year-old woman who was admitted with COVID-19 pneumonia and respiratory failure had tracheostomy closed off. Patient had tachycardia. Beta blockers initiated. Blood pressure has been on the lower side at this time. Inpatient rehab is being awaited. No chest pain. No palpitations. Past medical history reviewed. REVIEW OF SYSTEMS: CARDIOVASCULAR SYSTEM: As mentioned earlier. RESPIRATION: As mentioned earlier. GI: No nausea, vomiting. : No dysuria, retention. NERVOUS SYSTEM: Diffusely weak. CURRENT MEDICATIONS: Reviewed. They include Xanax, Eliquis, vitamin C. Doses and other medications also reviewed. PHYSICAL EXAMINATION: Pulse is 88, blood pressure 116/83, respiration 16. HEENT: Conjunctivae normal. NECK: Tracheostomy closed off. CARDIOVASCULAR: S1, S2 muffled. RESPIRATION: Breath sounds diminished at the bases. A few scattered rhonchi. ABDOMEN: Soft. LEGS: No edema. No swelling. NERVOUS SYSTEM: Diffusely weak. LABS: Hemoglobin 12.2, potassium 3.4. Other labs are reviewed. ASSESSMENT: 1. Acute COVID-19 infection with acute bilateral interstitial pneumonia with acute hypoxic respiratory failure. 2. Elevated TSH and hypothyroidism. 3. Tachycardia, possibly sinus. 4. Gait dysfunction. 5. Hypokalemia. RECOMMENDATIONS AND DISCUSSION: I recommend to continue current medications, continue with the monitoring, symptomatic treatment. Reduce the dose of beta blockers. Continue the PT/OT evaluation. Continue the rest of the medications. DVT prophylaxis. Possible inpatient rehab. Prognosis guarded. Further recommendations to follow. MMODL / IJN: [id number] /
[2021-05-26] MEDS: POTASSIUM CHLORIDE ER 20 MEQ TAB.ER PO SCH ×2 (21:08→22:12)
[2021-05-26] MEDS: METOPROLOL TARTRATE 12.5 MG TAB PO SCH (21:08)
--- NOTE | 2021-05-26 21:15 | P.PN ---
Subjective Progress Note Date: 05/26/21 Principal diagnosis: Pneumonia and bacteremia Interval history : Patient is a 46-year-old -Hungarian female with admission diagnoses of Acute COVID-19 pneumonia subsequently admission to the hospital with worsening respiratory status has been diagnosed with a DVT and PE. The patient is status post trach and PEG tube placement as of 05/10/2021 On today's evaluation that is 05/26/2021, The patient remains to be afebrile, the patient breathing comfortably on nasal cannula oxygen , patient denies having any chest pain the patient did have some cough but no sputum production, no abdominal pain, patient denies any urinary symptoms Objective - Vital Signs Vital signs: Vital Signs Temp 98.1 F 05/26/21 14:00 Pulse 102 H 05/26/21 14:00 Resp 17 05/26/21 14:00 BP 112/84 05/26/21 14:00 Pulse Ox 97 05/26/21 14:00 Intake & Output 05/25/21 05/26/21 05/26/21 18:59 06:59 18:59 Intake Total 180 Output Total 2 Balance 180 -2 Intake: Oral 180 Output: Urine/Stool Mix 2 Other: # Voids 5 1 4 # Bowel Movements 2 ABP, PAP, CO, CI - Last Documented Arterial Blood Pressure 147/74 - Exam GENERAL DESCRIPTION: Middle-aged female lying in bed in no distress RESPIRATORY SYSTEM: Unlabored breathing , decreased breath sounds at bases, no wheeze HEART: S1 S2 regular rate and rhythm ABDOMEN: Soft , no tenderness EXTREMITIES: 2+ edema feet - Labs CBC & Chem 7: 05/26/21 05:35 05/26/21 05:35 Labs: Abnormal Lab Results - Last 24 Hours (Table) 05/26/21 05/26/21 Range/Units 05:35 05:35 RBC 4.01 L (4.10-5.20) X 10*6/uL RDW 15.1 H (11.5-14.5) % Immature Gran # 0.05 H (0.00-0.04) X 10*3/uL Eosinophils # 0.39 H (0.04-0.35) X 10*3/uL Potassium 3.4 L (3.5-5.5) mmol/L BUN 3.0 L (9.0-27.0) mg/dL Creatinine 0.4 L (0.6-1.5) mg/dL BUN/Creatinine Ratio 6.92 L (12.00-20.00) Ratio ALT 83 H (8-44) U/L Albumin 3.5 L (3.8-4.9) g/dL Albumin/Globulin Ratio 1.07 L (1.60-3.17) g/dL Microbiology - Last 24 Hours (Table) 05/23/21 13:52 Stool Culture - Preliminary Stool Assessment and Plan (1) Positive blood culture Current Visit: Yes Status: Acute Code(s): R78.81 - BACTEREMIA SNOMED Code(s): 029696444 (2) COVID-19 Current Visit: Yes Status: Acute Code(s): U07.1 - COVID-19 SNOMED Code(s): 212623892 Plan: 1-patient with a positive blood culture which has been finalized and staph epi likely skin contaminant, Repeat blood culture has been negative so far, patient is being monitored off vancomycin 2-acute respiratory failure which is multifactorial possible component of pneumonia, Sputum has been usual respiratory pat, patient white count is normal, patient has completed a course of IV cefepime, and will be monitored closely off antibiotic therapy 3-patient with a suprapubic discomfort, burning of urine related to catheter associated UTI , urine did grew Esthela albicans , Pena catheter has been discontinued and patient to continue with the short course of oral Diflucan 3 days Time with Patient: Less than 30
[2021-05-27] MEDS: LEVOTHYROXINE 50 MCG TAB PO SCH (06:05)
[2021-05-27 07:25] LABS: Basophils % (A) 1 %; Eosinophils # (A) 0.3 k/uL (0-0.7); Eosinophils % (A) 5 %; HCT 40.7 % (34.0-46.0); HGB 13.1 gm/dL (11.4-16.0); Lymphocytes # (A) 1.7 k/uL (1.0-4.8); Lymphocytes % (A) 31 %; MCH 31.4 pg (25.0-35.0); MCHC 32.3 g/dL (31.0-37.0); MCV 97.1 fL (80.0-100.0); Mean Platelet Volume 8.5; Monocytes # (A) 0.3 k/uL (0-1.0); Monocytes % (A) 6 %; Neutrophils % (A) 54 %; Platelet Count 385 k/uL (150-450); RBC 4.19 m/uL (3.80-5.40); RDW 14.8 % (11.5-15.5); WBC 5.4 k/uL (3.8-10.6)
[2021-05-27 07:28] LABS: African American GFR (CKD) >90 (>60 ml/min/1.73 sqM); Anion Gap 6 mmol/L; Blood Urea Nitrogen 3 mg/dL (7-17); Calcium 9.7 mg/dL (8.4-10.2); Carbon Dioxide 28 mmol/L (22-30); Chloride 104 mmol/L (98-107); Glucose 96 mg/dL (74-99); Non-African American GFR(CKD) >90 (>60 ml/min/1.73 sqM); Potassium 3.8 mmol/L (3.5-5.1); Sodium 138 mmol/L (137-145)
--- NOTE | 2021-05-27 08:47 | XR ---
EXAMINATION TYPE: XR chest 1V DATE OF EXAM: 05/27/2021 COMPARISON: 05/25/2021 HISTORY: Cough TECHNIQUE: Single frontal view of the chest is obtained. FINDINGS: Diffuse bilateral infiltrate stable. Right-sided PICC line stable. No sizable pleural effu dusty or pneumothorax. Heart size stable. IMPRESSION: Stable diffuse bilateral infiltrate.
[2021-05-27] MEDS: PANTOPRAZOLE 40 MG/10 ML VIAL IVP SCH (09:05)
[2021-05-27] MEDS: FLUCONAZOLE 100 MG TAB PO SCH (09:08)
[2021-05-27] MEDS: METOPROLOL TARTRATE 12.5 MG TAB PO SCH ×2 (09:08→21:17)
[2021-05-27] MEDS: CHOLECALCIFEROL 125 MCG (5000 IU) TABLET PO SCH (09:08)
[2021-05-27] MEDS: MICONAZOLE NITRATE 2% CREAM 14 GM TUBE TOPICAL SCH ×2 (09:08→23:48)
[2021-05-27] MEDS: busPIRone HCl 5 MG TAB PO SCH ×2 (09:08→23:48)
[2021-05-27] MEDS: APIXABAN 5 MG TAB PO SCH ×2 (09:08→21:17)
[2021-05-27] MEDS: ZINC SULFATE 220 MG CAP PO SCH (09:08)
[2021-05-27] MEDS: QUEtiapine 50 MG TAB PO SCH ×2 (09:08→23:48)
[2021-05-27] MEDS: ASCORBIC ACID 500 MG TAB PO SCH (09:08)
[2021-05-27] MEDS: MULTIVITAMINS, THERA 1 EACH TAB PO SCH (14:52)
[2021-05-27] MEDS: THIAMINE 100 MG TAB PO SCH (14:52)
[2021-05-27] MEDS: FOLIC ACID 1 MG TAB PO SCH (14:53)
--- NOTE | 2021-05-27 22:58 | P.PN ---
Subjective Progress Note Date: 05/27/21 Principal diagnosis: Pneumonia and bacteremia Interval history : Patient is a 46-year-old -Maltese female with admission diagnoses of Acute COVID-19 pneumonia subsequently admission to the hospital with worsening respiratory status has been diagnosed with a DVT and PE. The patient is status post trach and PEG tube placement as of 05/10/2021 On today's evaluation that is 05/27/2021, The patient denies any fever or any chills, the patient breathing comfortably and is down to 2 mm nasal cannula oxygen , patient denies having any chest pain the patient did have some cough but no sputum production, no abdominal pain, patient denies any urinary symptoms Objective - Vital Signs Vital signs: Vital Signs Temp 99.0 F 05/27/21 05:34 Pulse 124 H 05/27/21 07:20 Resp 16 05/27/21 07:20 BP 130/88 05/27/21 05:34 Pulse Ox 95 05/27/21 05:34 Intake & Output 05/26/21 05/27/21 05/27/21 18:59 06:59 18:59 Output Total 2 1 Balance -2 -1 Output: Stool 1 Urine/Stool Mix 2 Other: Voiding Method Bedside Commode # Voids 4 1 # Bowel Movements 1 1 ABP, PAP, CO, CI - Last Documented Arterial Blood Pressure 147/74 - Exam GENERAL DESCRIPTION: Middle-aged female lying in bed in no distress RESPIRATORY SYSTEM: Unlabored breathing , decreased breath sounds at bases, no wheeze HEART: S1 S2 regular rate and rhythm ABDOMEN: Soft , no tenderness EXTREMITIES: no edema feet - Labs CBC & Chem 7: 05/27/21 06:50 05/27/21 06:50 Labs: Abnormal Lab Results - Last 24 Hours (Table) 05/27/21 Range/Units 06:50 BUN 3 L (7-17) mg/dL Creatinine 0.40 L (0.52-1.04) mg/dL Microbiology - Last 24 Hours (Table) 05/23/21 13:52 Stool Culture - Final Stool Assessment and Plan (1) Positive blood culture Current Visit: Yes Status: Acute Code(s): R78.81 - BACTEREMIA SNOMED Code(s): 135511605 (2) COVID-19 Current Visit: Yes Status: Acute Code(s): U07.1 - COVID-19 SNOMED Code(s): 803227141 Plan: 1-patient with a positive blood culture which has been finalized and staph epi likely skin contaminant, Repeat blood culture has been negative so far, patient is being monitored off vancomycin 2-acute respiratory failure which is multifactorial possible component of pneumonia, Sputum has been usual respiratory pat, patient white count is normal, patient has completed a course of IV cefepime, and patient is currently doing well off antibiotic therapy 3-patient with a suprapubic discomfort, burning of urine related to catheter associated UTI , urine did grew Esthela albicans , Pena catheter has been discontinued and patient to continue Diflucan Time with Patient: Less than 30
[2021-05-27 23:44] VITALS: RESP 15
[2021-05-27] MEDS: SODIUM CHLORIDE 0.9% 500 ML 500 ML IV SCH (23:48)
--- NOTE | 2021-05-28 01:41 | P.PN ---
Subjective Progress Note Date: 05/27/21 This is a 46 year old female who was admitted with Covid 19 pneumonia with respiratory failure and has had tracheostomy that has been closed off and maintained on 2 L via GA. Patient also being followed closely by infectious disease and is currently off IV antibiotic therapy. Patient is afebrile and WBC is within normal limits. Social work following closely and planning inpatient rehab versus ECF for continued strength and mobility. PT/OT following. REVIEW OF SYSTEMS: CONSTITUTIONAL: reports feeling fatigued , denies fevers or chills. CARDIOVASCULAR: No chest pain, orthopnea, PND, no palpitations, no syncope. PULMONARY: no reports of shortness of breath, no cough, no hemoptysis. GASTROINTESTINAL: No diarrhea. no reports of nausea or vomiting NEUROLOGICAL: No headaches, no weakness, no numbness. HEMATOLOGICAL: Denies any bleeding or petechiae. GENITOURINARY: Denies any burning micturition, frequency, or urgency. Active Medications Acetaminophen (Acetaminophen Tab 325 Mg Tab) 650 mg PO Q6HR PRN PRN Reason: Mild Pain or Fever > 100.5 Last Admin: 05/25/21 03:02 Dose: 650 mg Documented by: Alprazolam (Alprazolam 0.5 Mg Tab) 0.5 mg PO QID PRN PRN Reason: Anxiety Last Admin: 05/25/21 21:24 Dose: 0.5 mg Documented by: Apixaban (Apixaban 5 Mg Tab) 5 mg PO BID [facility]; Protocol Last Admin: 05/27/21 21:17 Dose: 5 mg Documented by: Ascorbic Acid (Ascorbic Acid 500 Mg Tab) 1,000 mg PO DAILY [facility] Last Admin: 05/27/21 09:08 Dose: 1,000 mg Documented by: Buspirone HCl (Buspirone Hcl 5 Mg Tab) 15 mg PO BID [facility] Last Admin: 05/27/21 23:48 Dose: Not Given Documented by: Cholecalciferol (Cholecalciferol 125 Mcg (5000 Iu) Tablet) 125 mcg PO DAILY [facility] Last Admin: 05/27/21 09:08 Dose: 125 mcg Documented by: Fluconazole (Fluconazole 100 Mg Tab) 100 mg PO DAILY [facility] Last Admin: 05/27/21 09:08 Dose: 100 mg Documented by: Folic Acid (Folic Acid 1 Mg Tab) 1 mg PO DAILY@1200 [facility] Last Admin: 05/27/21 14:53 Dose: 1 mg Documented by: Hydromorphone HCl (Hydromorphone 1 Mg/Ml 1 Ml Syringe) 0.5 mg IVP Q6HR PRN PRN Reason: Pain Last Admin: 05/22/21 10:43 Dose: 0.5 mg Documented by: Levothyroxine Sodium (Levothyroxine 50 Mcg Tab) 150 mcg PO DAILY@0630 [facility] Last Admin: 05/27/21 06:05 Dose: 150 mcg Documented by: Metoprolol Tartrate (Metoprolol Tartrate 12.5 Mg Tab) 12.5 mg PO BID [facility] Last Admin: 05/27/21 21:17 Dose: 12.5 mg Documented by: Miconazole Nitrate (Miconazole Nitrate 2% Cream 14 Gm Tube) 1 applic TOPICAL BID [facility] Last Admin: 05/27/21 23:48 Dose: Not Given Documented by: Miscellaneous Information (Potassium Replacement Protocol 1 Each Misc) 1 each MISCELLANE DAILY PRN; Protocol PRN Reason: Per Protocol Miscellaneous Information (Potassium Replacement Protocol 1 Each Misc) 1 each MISCELLANE DAILY PRN; Protocol PRN Reason: Per Protocol Multivitamins (Multivitamins, Thera 1 Each Tab) 1 each PO DAILY@1200 [facility] Last Admin: 05/27/21 14:52 Dose: 1 each Documented by: Pantoprazole Sodium (Pantoprazole 40 Mg/10 Ml Vial) 40 mg IVP DAILY [facility] Last Admin: 05/27/21 09:05 Dose: 40 mg Documented by: Quetiapine Fumarate (Quetiapine 50 Mg Tab) 50 mg PO BID [facility] Last Admin: 05/27/21 23:48 Dose: Not Given Documented by: Thiamine HCl (Thiamine 100 Mg Tab) 100 mg PO DAILY@1200 [facility] Last Admin: 05/27/21 14:52 Dose: 100 mg Documented by: Zinc Sulfate (Zinc Sulfate 220 Mg Cap) 220 mg PO DAILY [facility] Last Admin: 05/27/21 09:08 Dose: 220 mg Documented by: PHYSICAL EXAMINATION: GENERAL: The patient is alert and oriented x3. Well developed, well nourished. HEENT: Pupils are round and equally reacting to light. EOMI. No scleral icterus. No conjunctival pallor. Normocephalic, atraumatic. No pharyngeal erythema. No thyromegaly. trach site closed with dressing CARDIOVASCULAR: S1 and S2 muffled PULMONARY: diminished breath sounds with scattered rhonchi bilaterally. ABDOMEN:soft, non-distended, no tenderness MUSCULOSKELETAL: No joint swelling or deformity. EXTREMITIES: No cyanosis, clubbing, or pedal edema. NEUROLOGICAL: Gross neurological examination did not reveal any focal deficits. diffusely weak SKIN: No rashes. Assessment: -Acute covid 19 infection with acute bilateral interstitial pneumonia with acute hypoxic respiratory failure -Elevated tsh and hypothyroidism -Tachycardia, possibly sinus -gait dysfunction -hypokalemia -DVT prophylaxis -GI prophylaxis -full code Plan: Recommend to continue with current medications. Patient is awaiting possible inpatient rehab in [place] and authorization required. PT/OT following. Case management and social work following. Will continue to monitor closely. ID also following and patient is being closely monitored off IV antibiotics. Due to multiple complex medical issues, prognosis is guarded. Objective - Vital Signs Vital signs: Vital Signs Temp 99.0 F 05/27/21 05:34 Pulse 124 H 05/27/21 07:20 Resp 16 05/27/21 07:20 BP 130/88 05/27/21 05:34 Pulse Ox 95 05/27/21 05:34 Intake & Output 05/26/21 05/27/21 05/27/21 18:59 06:59 18:59 Output Total 2 1 Balance -2 -1 Output: Stool 1 Urine/Stool Mix 2 Other: Voiding Method Bedside Commode # Voids 4 1 # Bowel Movements 1 1 ABP, PAP, CO, CI - Last Documented Arterial Blood Pressure 147/74 - Labs CBC & Chem 7: 05/27/21 06:50 05/27/21 06:50 Labs: Abnormal Lab Results - Last 24 Hours (Table) 05/27/21 Range/Units 06:50 BUN 3 L (7-17) mg/dL Creatinine 0.40 L (0.52-1.04) mg/dL Microbiology - Last 24 Hours (Table) 05/23/21 13:52 Stool Culture - Final Stool
[2021-05-28 01:43] VITALS: TEMP 98.8
[2021-05-28] MEDS: LEVOTHYROXINE 50 MCG TAB PO SCH (06:05)
--- NOTE | 2021-05-28 07:00 | P.PN ---
Progress Note - Text Therapy notes reviewed. PT reports supervision for bed mobility, transfers, gait 36 ft with roller walker. Thus not multidisciplinary need and not appropriate fir IPR per insurance criteria.
[2021-05-28 08:00] VITALS: BP 122/81; PULSE 100
[2021-05-28] MEDS: busPIRone HCl 5 MG TAB PO SCH (08:23)
[2021-05-28] MEDS: QUEtiapine 50 MG TAB PO SCH (08:23)
[2021-05-28] MEDS: PANTOPRAZOLE 40 MG/10 ML VIAL IVP SCH (08:24)
[2021-05-28] MEDS: FLUCONAZOLE 100 MG TAB PO SCH (08:24)
[2021-05-28] MEDS: APIXABAN 5 MG TAB PO SCH (08:24)
[2021-05-28] MEDS: ZINC SULFATE 220 MG CAP PO SCH (08:25)
[2021-05-28] MEDS: ASCORBIC ACID 500 MG TAB PO SCH (08:25)
[2021-05-28] MEDS: CHOLECALCIFEROL 125 MCG (5000 IU) TABLET PO SCH (08:25)
[2021-05-28] MEDS: METOPROLOL TARTRATE 12.5 MG TAB PO SCH (08:25)
[2021-05-28] MEDS: MICONAZOLE NITRATE 2% CREAM 14 GM TUBE TOPICAL SCH (08:25)
--- NOTE | 2021-05-28 10:14 | P.DS ---
Providers Date of admission: 04/21/21 02:56 Expected date of discharge: 05/28/21 Attending physician: Foreign Hannah Consults: 04/24/21 08:31 Consult Physician Urgent Consulting Provider: Paloma Swain Consult Reason/Comments: COVID POSITIVE, INCREASED 02 DEMANDS Do you want consulting provider notified?: Yes 04/29/21 13:22 Consult Physician Routine Consulting Provider: Otto Mcbride Consult Reason/Comments: possitive blood cultures Do you want consulting provider notified?: Yes 05/08/21 11:01 Consult Physician Routine Consulting Provider: Paolo Chavez Consult Reason/Comments: trach and peg Do you want consulting provider notified?: Yes 05/21/21 09:36 Consult Physician Routine Consulting Provider: Reynaldo Stone Consult Reason/Comments: vaginal burning, hematuria Do you want consulting provider notified?: Yes 05/21/21 10:29 Consult Physician Routine Consulting Provider: Lemuel Cobian Consult Reason/Comments: inpatient rehab, post mech vent, COVID Do you want consulting provider notified?: Yes 05/21/21 11:16 Consult Physician Routine Consulting Provider: Lois Martinez Consult Reason/Comments: vaginal burning, hematuria Do you want consulting provider notified?: Yes Primary care physician: Foreign Hannah Hospital Course: Final diagnosis -Acute covid 19 infection with acute bilateral interstitial pneumonia with acute hypoxic respiratory failure -Elevated tsh and hypothyroidism -Tachycardia, possibly sinus -gait dysfunction -hypokalemia -DVT prophylaxis -GI prophylaxis -full code Discharge disposition Patient is being discharged in a stable condition with guarded prognosis to [place] inpatient rehab for continued PT/OT therapy. Patient will follow-up with Dr. Hannah in the outpatient setting upon discharge. Patient is to continue with oral Diflucan for the next 7 days and then may discontinue. Total time taken is greater than 35 minutes. Hospital course This is a 46-year-old female who was recently admitted with COVID-19 pneumonia with respiratory failure underwent tracheostomy placement and is had prolonged hospitalization and tracheostomy currently closed off and patient is on 2 L nasal cannula and tolerating well. Patient also resumed on dysphagia 3 chopped diet and recommend aspiration precautions and keeping the head of the bed elevated 30-45 at all times. Patient to continue with oral Diflucan once daily for the next 7 days and then may discontinue. Patient was closely monitored with infectious disease following and is off antibiotics and doing well. Patient continues with extensive weakness secondary to prolonged hospitalization and authorization from insurance was approved for inpatient rehab in [place]. Currently no reports of chest pain, shortness of breath, or palpitations. Patient is afebrile. No reports of nausea or vomiting and patient is tolerating diet. Patient will be discharged to inpatient rehab today. Guarded prognosis. On exam vital signs are stable. Cardio S1, S2 are muffled. Respiratory system shows diminished breath sounds at the bases with no wheezing or rhonchi noted. Abdomen is soft and nontender. Nervous system shows diffuse weakness. Please refer to medication reconciliation sheet for a list of medications. Patient Condition at Discharge: Stable Plan - Discharge Summary Discharge Rx Participant: Yes New Discharge Prescriptions: New busPIRone HCl [Buspar] 15 mg PO BID tab Apixaban [Eliquis] 5 mg PO BID tab Metoprolol Tartrate [Lopressor] 12.5 mg PO BID tab Miconazole 2% Cream [Monistat-Derm] 1 applic TOPICAL BID cream Multivitamins, Thera [Multivitamin (formulary)] 1 each PO DAILY@1200 tab QUEtiapine [SEROquel] 50 mg PO BID tab Thiamine [Vitamin B-1] 100 mg PO DAILY@1200 tab ALPRAZolam [Xanax] 0.5 mg PO QID PRN #4 tab PRN Reason: Anxiety Fluconazole [Diflucan] 100 mg PO DAILY 7 Days #7 tab Folic Acid 1 mg PO DAILY@1200 tab Pantoprazole Sodium [Protonix] 40 mg PO DAILY #30 tab Levothyroxine Sodium [Synthroid] 150 mcg PO DAILY@0630 tab Acetaminophen Tab [Tylenol] 650 mg PO Q6HR PRN tab PRN Reason: Mild Pain Or Fever > 100.5 Ascorbic Acid [Vitamin C] 1,000 mg PO DAILY tab Cholecalciferol [Vitamin D3 (125 Mcg = 5000 Iu)] 125 mcg PO DAILY tablet Discontinued Levothyroxine Sodium [Synthroid] 112 mcg PO DAILY Discharge Medication List ALPRAZolam [Xanax] 0.5 mg PO QID PRN #4 tab 05/28/21 [Rx] Acetaminophen Tab [Tylenol] 650 mg PO Q6HR PRN tab 05/28/21 [Rx] Apixaban [Eliquis] 5 mg PO BID tab 05/28/21 [Rx] Ascorbic Acid [Vitamin C] 1,000 mg PO DAILY tab 05/28/21 [Rx] Cholecalciferol [Vitamin D3 (125 Mcg = 5000 Iu)] 125 mcg PO DAILY tablet 05/28/21 [Rx] Fluconazole [Diflucan] 100 mg PO DAILY 7 Days #7 tab 05/28/21 [Rx] Folic Acid 1 mg PO DAILY@1200 tab 05/28/21 [Rx] Levothyroxine Sodium [Synthroid] 150 mcg PO DAILY@0630 tab 05/28/21 [Rx] Metoprolol Tartrate [Lopressor] 12.5 mg PO BID tab 05/28/21 [Rx] Miconazole 2% Cream [Monistat-Derm] 1 applic TOPICAL BID cream 05/28/21 [Rx] Multivitamins, Thera [Multivitamin (formulary)] 1 each PO DAILY@1200 tab 05/28/21 [Rx] Pantoprazole Sodium [Protonix] 40 mg PO DAILY #30 tab 05/28/21 [Rx] QUEtiapine [SEROquel] 50 mg PO BID tab 05/28/21 [Rx] Thiamine [Vitamin B-1] 100 mg PO DAILY@1200 tab 05/28/21 [Rx] busPIRone HCl [Buspar] 15 mg PO BID tab 05/28/21 [Rx] Follow up Appointment(s)/Referral(s): Foreign Hannah MD [Primary Care Provider] - 1-2 days Ambulatory/Diagnostic Orders: Complete Blood Count w/diff [LAB.AMB] Time Frame: 3 Days, Location: None Selected Activity/Diet/Wound Care/Special Instructions: Patient is going to inpatient rehab out of [place] Activity as tolerated Recommend follow up on discharge with primary care provider Recommend continue with dysphasia 3 chopped diet and supervision with meals and aspiration precautions with head of the bed elevated 30-45 at all times Recommend continued local wound care Recommend repeat labs of CBC and BMP in the outpatient setting in 2-3 days Discharge Disposition: TRANSFER TO SNF/ECF
[2021-05-28] MEDS: FOLIC ACID 1 MG TAB PO SCH (11:54)
[2021-05-28] MEDS: MULTIVITAMINS, THERA 1 EACH TAB PO SCH (11:55)
[2021-05-28] MEDS: THIAMINE 100 MG TAB PO SCH (11:55)
== END 2021-05-28 13:13 | DRG 4 ==
LOC: EC 22:33 → 6NMEDSUR 04-21 02:56 → 3SCARD 04-24 12:43 → 2SICU 04-26 12:54 → 4SSUR 05-22 21:46
PROVIDERS: ADMIT Family Medicine; ATTEND Family Medicine
PROC: 05HB33Z Insertion of Infusion Device into Right Basilic Vein, Percutaneous Approach (ICD-10-PCS; 2021-04-24)
PROC: 5A0945A Assistance with Respiratory Ventilation, 24-96 Consecutive Hours, High Flow/Velocity Cannula (ICD-10-PCS; 2021-04-24)
PROC: XW0DXM6 Introduction of Baricitinib into Mouth and Pharynx, External Approach, New Technology Group 6 (ICD-10-PCS; 2021-04-25)
PROC: 03HY32Z Insertion of Monitoring Device into Upper Artery, Percutaneous Approach (ICD-10-PCS; 2021-04-26)
PROC: 4A133J1 Monitoring of Arterial Pulse, Peripheral, Percutaneous Approach (ICD-10-PCS; 2021-04-26)
PROC: 02HV33Z Insertion of Infusion Device into Superior Vena Cava, Percutaneous Approach (ICD-10-PCS; 2021-04-26)
PROC: 4A133B1 Monitoring of Arterial Pressure, Peripheral, Percutaneous Approach (ICD-10-PCS; 2021-04-26)
PROC: 5A1955Z Respiratory Ventilation, Greater than 96 Consecutive Hours (ICD-10-PCS; 2021-04-27)
PROC: 0BH17EZ Insertion of Endotracheal Airway into Trachea, Via Natural or Artificial Opening (ICD-10-PCS; 2021-04-27)
PROC: 0D9670Z Drainage of Stomach with Drainage Device, Via Natural or Artificial Opening (ICD-10-PCS; 2021-04-27)
PROC: 0DH67UZ Insertion of Feeding Device into Stomach, Via Natural or Artificial Opening (ICD-10-PCS; 2021-04-27)
PROC: 3E0G76Z Introduction of Nutritional Substance into Upper GI, Via Natural or Artificial Opening (ICD-10-PCS; 2021-04-27)
PROC: 02HV33Z Insertion of Infusion Device into Superior Vena Cava, Percutaneous Approach (ICD-10-PCS; 2021-05-01)
PROC: 3E0G76Z Introduction of Nutritional Substance into Upper GI, Via Natural or Artificial Opening (ICD-10-PCS; principal; 2021-05-10 13:20)
PROC: 0DH63UZ Insertion of Feeding Device into Stomach, Percutaneous Approach (ICD-10-PCS; principal; 2021-05-10 13:20)
PROC: 0B110F4 Bypass Trachea to Cutaneous with Tracheostomy Device, Open Approach (ICD-10-PCS; principal; 2021-05-10 13:20)
PROC: 5A1935Z Respiratory Ventilation, Less than 24 Consecutive Hours (ICD-10-PCS; 2021-05-19)
PROC: 5A09357 Assistance with Respiratory Ventilation, Less than 24 Consecutive Hours, Continuous Positive Airway Pressure (ICD-10-PCS; 2021-05-19)
PROC: 5A09357 Assistance with Respiratory Ventilation, Less than 24 Consecutive Hours, Continuous Positive Airway Pressure (ICD-10-PCS; 2021-05-19)
PROC: 5A0935A Assistance with Respiratory Ventilation, Less than 24 Consecutive Hours, High Flow/Velocity Cannula (ICD-10-PCS; 2021-05-23)
DX: U07.1 COVID-19 (principal); T83.511A Infection and inflammatory reaction due to indwelling urethral catheter, initial encounter; E43 Unspecified severe protein-calorie malnutrition; I26.99 Other pulmonary embolism without acute cor pulmonale; J12.82 Pneumonia due to coronavirus disease 2019; J80 Acute respiratory distress syndrome; B37.0 Candidal stomatitis; E87.4 Mixed disorder of acid-base balance; G62.81 Critical illness polyneuropathy; I82.431 Acute embolism and thrombosis of right popliteal vein; D68.32 Hemorrhagic disorder due to extrinsic circulating anticoagulants; B37.3 Candidiasis of vulva and vagina; Z68.38 Body mass index [BMI] 38.0-38.9, adult; E87.6 Hypokalemia; E89.0 Postprocedural hypothyroidism; F41.0 Panic disorder [episodic paroxysmal anxiety]; I48.91 Unspecified atrial fibrillation; K21.9 Gastro-esophageal reflux disease without esophagitis; N32.81 Overactive bladder; R31.0 Gross hematuria; T45.515A Adverse effect of anticoagulants, initial encounter; R00.0 Tachycardia, unspecified; Z79.890 Hormone replacement therapy; R13.10 Dysphagia, unspecified; R26.9 Unspecified abnormalities of gait and mobility; Z79.899 Other long term (current) drug therapy; Z80.0 Family history of malignant neoplasm of digestive organs; Z80.3 Family history of malignant neoplasm of breast; Z82.49 Family history of ischemic heart disease and other diseases of the circulatory system; Z90.711 Acquired absence of uterus with remaining cervical stump; Z71.3 Dietary counseling and surveillance; Z87.01 Personal history of pneumonia (recurrent); Z79.52 Long term (current) use of systemic steroids
CPT/HCPCS: 36410; 36415; 36573; 36600; 43246; 71045; 71046; 71275; 74230; 76937; 80048; 80053; 81001; 82805; 83615; 83690; 83735; 84100; 84132; 84145; 84443; 84484; 85025; 85027; 85379; 85610; 85730; 86140; 87040; 87045; 87046; 87070; 87077; 87086; 87186; 87205; 87324; 87635; 93005; 93970; 94002; 94003; 94640; 94660; 94760; 96360; 96361; 99285

== ENCOUNTER 2021-08-06 12:16 | Observation (INO) | payer OTHER ==
[2021-08-06] MEDS ORDERED: NITROGLYCERIN SL TABS 0.4 MG TAB SUBLINGUAL STA (12:43)
[2021-08-06] MEDS ORDERED: ASPIRIN 81 MG PO STA (12:44)
--- NOTE | 2021-08-06 12:47 | ED ---
General Adult HPI - General Chief complaint: Chest Pain Stated complaint: Chest pain Time Seen by Provider: 08/06/21 12:37 Source: patient, RN notes reviewed Mode of arrival: ambulatory Limitations: no limitations - History of Present Illness Initial comments: Patient is a pleasant 46-year-old female sitting to the emergency Department with chest discomfort. Onset of symptoms was a couple of days ago, much worse this morning. Discomfort is currently 9/10. Discomfort did feel like burning however now feels more like pressure. No radiation. Patient does have some dyspnea however this has been persistent since having COVID-19 infection. No associated nausea or diaphoresis. No modifying factors. No leg pain or leg swelling. Patient does have family history of heart disease. Patient does have history of thyroid disease and previous hypertension. - Related Data Home Medications Medication Instructions Recorded Confirmed ALPRAZolam [Xanax] 0.5 mg PO TID PRN 08/06/21 08/06/21 Folic Acid 1 mg PO DAILY 08/06/21 08/06/21 Levothyroxine Sodium [Synthroid] 150 mcg PO DAILY 08/06/21 08/06/21 Metoprolol Tartrate [Lopressor] 25 mg PO BID 08/06/21 08/06/21 Ondansetron [Zofran] 4 mg PO Q6H PRN 08/06/21 08/06/21 Sodium Chloride [[place]] 1 spr EA NOSTRIL BID 08/06/21 08/06/21 Previous Rx's Medication Instructions Recorded Apixaban [Eliquis] 5 mg PO BID tab 05/28/21 Ascorbic Acid [Vitamin C] 1,000 mg PO DAILY tab 05/28/21 Cholecalciferol [Vitamin D3 (125 125 mcg PO DAILY tablet 05/28/21 Mcg = 5000 Iu)] Pantoprazole Sodium [Protonix] 40 mg PO DAILY #30 tab 05/28/21 Allergies Allergy/AdvReac Type Severity Reaction Status Date / Time No Known Allergies Allergy Verified 08/06/21 13:28 Review of Systems ROS Statement: Those systems with pertinent positive or pertinent negative responses have been documented in the HPI. ROS Other: All systems not noted in ROS Statement are negative. Constitutional: Denies: fever Eyes: Denies: eye pain ENT: Denies: ear pain Respiratory: Reports: as per HPI. Denies: cough Cardiovascular: Reports: as per HPI, chest pain Endocrine: Denies: fatigue Gastrointestinal: Denies: abdominal pain, nausea, vomiting Genitourinary: Denies: dysuria Musculoskeletal: Denies: back pain Skin: Denies: rash Neurological: Denies: weakness Past Medical History Past Medical History: GERD/Reflux, Pneumonia, Thyroid Disorder Additional Past Medical History / Comment(s): overactive bladder, Covid History of Any Multi-Drug Resistant Organisms: None Reported Past Surgical History: Hysterectomy Additional Past Surgical History / Comment(s): partial hysterectomy, 09/11/14 thyroid removal Past Anesthesia/Blood Transfusion Reactions: No Reported Reaction Past Psychological History: Anxiety Smoking Status: Never smoker Past Alcohol Use History: Occasional Past Drug Use History: Marijuana - Past Family History Mother Family Medical History: Cancer, Hypertension Additional Family Medical History / Comment(s): colon cancer. maternal aunt with breast cancer age 40 Sister(s) Family Medical History: Cancer Additional Family Medical History / Comment(s): breast cancer age 49 Father Family Medical History: Hypertension Additional Family Medical History / Comment(s): paternal gradmother breast cancer age 80 General Exam Limitations: no limitations General appearance: alert, in no apparent distress Head exam: Present: normocephalic Eye exam: Present: normal appearance Neck exam: Present: normal inspection Respiratory exam: Present: normal lung sounds bilaterally. Absent: chest wall tenderness Cardiovascular Exam: Present: regular rate, normal rhythm, normal heart sounds Expanded Peripheral pulses: 2+: Radial (R), Radial (L), Posterior Tibialis (R), Posterior Tibialis (L) GI/Abdominal exam: Present: soft. Absent: tenderness Extremities exam: Present: normal inspection. Absent: pedal edema, calf tenderness Neurological exam: Present: alert Psychiatric exam: Present: normal affect, normal mood Skin exam: Present: normal color Course Vital Signs 08/06/21 12:21 Temperature 98 F Pulse Rate 71 Respiratory 22 Rate Blood Pressure 112/74 O2 Sat by Pulse 100 Oximetry - Reevaluation(s) Reevaluation #1: 08/06/21 12:45 EKG #2 shows sinus rhythm with a rate of 76. NC 138. QRS 109. QT 345. QTC 375. Left axis. LVH criteria. Borderline ST changes V1 and V2. Inferior T wave inversion with for line ST depression in 3 and aVF. Cardiology has been paged. 08/06/21 13:06 Case was discussed with Dr. Palmer cardiology who is reviewing EKGs and will call back 08/06/21 13:23 Dr. Palmer did evaluate patient and will stand his consult. He does not feel need for emergent catheterization. EKG Findings - EKG Comments: EKG Findings:: EKG #1 shows sinus rhythm with rate of 71. NC 149. QRS 100. QT 356. QTc 370 left axis. LVH. Poor line ST changes V1 and V2. T wave inversion with some ST depression leads 3 and aVF. Previous EKG reviewed from April 20. Medical Decision Making - Medical Decision Making Patient reevaluated. Patient and family updated. Case discussed with Dr. Hannah, in addition, who will admit his patient - Lab Data Result diagrams: 08/06/21 13:20 08/06/21 13:20 Lab Results 08/06/21 08/06/21 08/06/21 Range/Units 13:20 13:20 13:20 WBC 6.6 (3.8-10.6) k/uL RBC 4.56 (3.80-5.40) m/uL Hgb 14.1 (11.4-16.0) gm/dL Hct 43.7 (34.0-46.0) % MCV 96.0 (80.0-100.0) fL MCH 31.0 (25.0-35.0) pg MCHC 32.3 (31.0-37.0) g/dL RDW 13.9 (11.5-15.5) % Plt Count 326 (150-450) k/uL MPV 8.3 Neutrophils % 57 % Lymphocytes % 31 % Monocytes % 6 % Eosinophils % 3 % Basophils % 2 % Neutrophils # 3.8 (1.3-7.7) k/uL Lymphocytes # 2.0 (1.0-4.8) k/uL Monocytes # 0.4 (0-1.0) k/uL Eosinophils # 0.2 (0-0.7) k/uL Basophils # 0.1 (0-0.2) k/uL PT 9.8 (9.0-12.0) sec INR 0.9 (<1.2) APTT 25.4 (22.0-30.0) sec D-Dimer 0.60 H (<0.60) mg/L FEU Sodium 140 (137-145) mmol/L Potassium 4.1 (3.5-5.1) mmol/L Chloride 107 (98-107) mmol/L Carbon Dioxide 25 (22-30) mmol/L Anion Gap 8 mmol/L BUN 7 (7-17) mg/dL Creatinine 0.69 (0.52-1.04) mg/dL Est GFR (CKD-EPI)AfAm >90 (>60 ml/min/1.73 sqM) Est GFR (CKD-EPI)NonAf >90 (>60 ml/min/1.73 sqM) Glucose 64 L (74-99) mg/dL POC Glucose (mg/dL) (75-99) mg/dL POC Glu Maintenance Technician 3Rd Shift ID Calcium 9.7 (8.4-10.2) mg/dL Magnesium 2.1 (1.6-2.3) mg/dL Total Bilirubin 0.9 (0.2-1.3) mg/dL AST 24 (14-36) U/L ALT 18 (4-34) U/L Alkaline Phosphatase 102 (38-126) U/L Troponin I (0.000-0.034) ng/mL Total Protein 8.3 H (6.3-8.2) g/dL Albumin 4.1 (3.5-5.0) g/dL Amylase 79 (30-110) U/L Lipase 62 (23-300) U/L 08/06/21 08/06/21 Range/Units 13:20 13:53 WBC (3.8-10.6) k/uL RBC (3.80-5.40) m/uL Hgb (11.4-16.0) gm/dL Hct (34.0-46.0) % MCV (80.0-100.0) fL MCH (25.0-35.0) pg MCHC (31.0-37.0) g/dL RDW (11.5-15.5) % Plt Count (150-450) k/uL MPV Neutrophils % % Lymphocytes % % Monocytes % % Eosinophils % % Basophils % % Neutrophils # (1.3-7.7) k/uL Lymphocytes # (1.0-4.8) k/uL Monocytes # (0-1.0) k/uL Eosinophils # (0-0.7) k/uL Basophils # (0-0.2) k/uL PT (9.0-12.0) sec INR (<1.2) APTT (22.0-30.0) sec D-Dimer (<0.60) mg/L FEU Sodium (137-145) mmol/L Potassium (3.5-5.1) mmol/L Chloride (98-107) mmol/L Carbon Dioxide (22-30) mmol/L Anion Gap mmol/L BUN (7-17) mg/dL Creatinine (0.52-1.04) mg/dL Est GFR (CKD-EPI)AfAm (>60 ml/min/1.73 sqM) Est GFR (CKD-EPI)NonAf (>60 ml/min/1.73 sqM) Glucose (74-99) mg/dL POC Glucose (mg/dL) 60 L (75-99) mg/dL POC Glu Maintenance Technician 3Rd Shift ID Hollis, Elli Calcium (8.4-10.2) mg/dL Magnesium (1.6-2.3) mg/dL Total Bilirubin (0.2-1.3) mg/dL AST (14-36) U/L ALT (4-34) U/L Alkaline Phosphatase (38-126) U/L Troponin I <0.012 (0.000-0.034) ng/mL Total Protein (6.3-8.2) g/dL Albumin (3.5-5.0) g/dL Amylase (30-110) U/L Lipase (23-300) U/L Disposition Clinical Impression: Chest pain Disposition: ADMITTED IP TO THIS [facility] Is patient prescribed a controlled substance at d/c from ED?: No Time of Disposition: 13:53
[2021-08-06] MEDS ORDERED: NITROGLYCERIN OINT 1 INCH/GM PACKET TOPICAL STA (13:19)
[2021-08-06 13:29] LABS: Basophils # (A) 0.1 k/uL (0-0.2); Basophils % (A) 2 %; Eosinophils # (A) 0.2 k/uL (0-0.7); Eosinophils % (A) 3 %; HCT 43.7 % (34.0-46.0); HGB 14.1 gm/dL (11.4-16.0); Lymphocytes % (A) 31 %; MCHC 32.3 g/dL (31.0-37.0); Mean Platelet Volume 8.3; Monocytes # (A) 0.4 k/uL (0-1.0); Monocytes % (A) 6 %; Neutrophils # (A) 3.8 k/uL (1.3-7.7); Neutrophils % (A) 57 %; Platelet Count 326 k/uL (150-450); RBC 4.56 m/uL (3.80-5.40); RDW 13.9 % (11.5-15.5); WBC 6.6 k/uL (3.8-10.6)
[2021-08-06] MEDS ORDERED: NITROGLYCERIN OINT 1 INCH/GM PACKET TOPICAL SCH (13:30)
[2021-08-06] MEDS ORDERED: HEPARIN SODIUM 1,000 UN/ML (10ML VL) IV PRN (13:31)
[2021-08-06 13:38] LABS: ALT 18 U/L (4-34); AST 24 U/L (14-36); African American GFR (CKD) >90 (>60 ml/min/1.73 sqM); Albumin 4.1 g/dL (3.5-5.0); Alkaline Phosphatase 102 U/L (38-126); Amylase 79 U/L (30-110); Anion Gap 8 mmol/L; Blood Urea Nitrogen 7 mg/dL (7-17); Calcium 9.7 mg/dL (8.4-10.2); Carbon Dioxide 25 mmol/L (22-30); Chloride 107 mmol/L (98-107); Glucose 64 mg/dL (74-99); Lipase 62 U/L (23-300); Magnesium 2.1 mg/dL (1.6-2.3); Non-African American GFR(CKD) >90 (>60 ml/min/1.73 sqM); Potassium 4.1 mmol/L (3.5-5.1); Sodium 140 mmol/L (137-145); Total Bilirubin 0.9 mg/dL (0.2-1.3); Total Protein 8.3 g/dL (6.3-8.2)
[2021-08-06 13:43] LABS: INR 0.9 (<1.2); Prothrombin Time 9.8 sec (9.0-12.0)
[2021-08-06 13:44] LABS: Partial Thromboplastin Time 25.4 sec (22.0-30.0)
--- NOTE | 2021-08-06 13:49 | P.CRDCN ---
History of Present Illness Consult date: 08/06/21 History of present illness: HISTORY OF PRESENT ILLNESS: This is a 46 year old female with a past medical history significant for GERD, hypothyroidism, Covid in early 2021 resulting in Trach/PEG and prolonged hospitalization of 54 days, and PE on Eliquis. Patient follows in the office with Dr. Leach. We have been asked to see the patient in consultation for chest pain. Patient examined at the bedside. Patient states she has been having chest pain for the past 2 days. She reports the pain is a heavy pressure type sensation. She denied any radiation of the pain. Denied any nausea or vomiting. Denied any dizziness or lightheadedness. She does report some mild shortness of breath which she states is chronic since having her Covid i nfection. She is on home O2. She does report that her heart rate usually runs on the higher side and can be around 100-130. She states she was checking her oxygen saturation at home this morning and noted her heart rate to be in the 60- 70s which concerned her and caused her some anxiety which is part of the reason she came to the hospital. At the time of examination, the patient's chest pain has almost completely resolved. She does appear comfortable at rest and does not appear to be in any distress. * EKG reveals sinus mechanism with T wave inversions in inferior leads and minimal ST elevation in V1-V2 * Chest xray not available at the time of this dictation * Laboratory data: Not available at the time of this dictation * Current home cardiac medications include Eliquis 5 mg twice a day and metoprolol tartrate 25 mg twice a day * Most recent echocardiogram obtained in April 2021 revealed ejection fraction 50-55% with mild MR REVIEW OF SYSTEMS: At the time of my exam: CONSTITUTIONAL: Denies fever or chills. HEENT: Denies blurred vision, vision changes, or eye pain. Denies hemoptysis CARDIOVASCULAR: Denies chest pain. Denies orthopnea. Denies PND. Denies palpitations RESPIRATORY: Denies shortness of breath. GASTROINTESTINAL: Denies abdominal pain. Denies nausea or vomiting. HEMATOLOGIC: Denies bleeding disorders. GENITOURINARY: Denies any blood in urine. SKIN: Denies pruitis. Denies rash. PHYSICAL EXAM: VITAL SIGNS: Reviewed. GENERAL: Well-developed in no acute distress. HEENT: Head is normocephalic. Pupils are equal, round. Sclerae anicteric. Mucous membranes of the mouth are moist. Neck supple. No JVD or thyromegaly LUNGS: Respirations even and unlabored. Lungs essentially clear to auscultation bilaterally. HEART: Regular rate and rhythm. S1 and S2 heard. ABDOMEN: Soft. Nondistended. Nontender. EXTREMITIES: Normal range of motion. No clubbing or cyanosis. Peripheral pulses intact. Trace bilateral lower extremity edema NEUROLOGIC: Awake and alert. Oriented x 3. ASSESSMENT: Chest pain History of PE, on Eliquis History of Covid, April 2021 resulting in trach/peg and prolonged hospitalization Chronic hypoxic respiratory failure on home O2 Hypothyroidism GERD Anxiety PLAN: Patient took her Eliquis this morning. Continue to hold Eliquis Begin IV heparin infusion at 1700 this evening Begin Nitropaste half an inch every 8 hours, metoprolol tartrate 25 mg twice a day, atorvastatin 80 mg at night, and aspirin 81 mg daily Obtain 2-D echo to assess cardiac structure and function NPO at midnight Possible heart cath tomorrow Trend troponin levels Further recommendations pending patient course Nurse practitioner note has been reviewed by physician. Signing provider agrees with the documented findings, assessment, and plan of care. Past Medical History Past Medical History: GERD/Reflux, Pneumonia, Thyroid Disorder Additional Past Medical History / Comment(s): overactive bladder, Covid History of Any Multi-Drug Resistant Organisms: None Reported Past Surgical History: Hysterectomy Additional Past Surgical History / Comment(s): partial hysterectomy, 09/11/14 thyroid removal Past Anesthesia/Blood Transfusion Reactions: No Reported Reaction Past Psychological History: Anxiety Smoking Status: Never smoker Past Alcohol Use History: Occasional Past Drug Use History: Marijuana - Past Family History Mother Family Medical History: Cancer, Hypertension Additional Family Medical History / Comment(s): colon cancer. maternal aunt with breast cancer age 40 Sister(s) Family Medical History: Cancer Additional Family Medical History / Comment(s): breast cancer age 49 Father Family Medical History: Hypertension Additional Family Medical History / Comment(s): paternal gradmother breast cancer age 80 Medications and Allergies Home Medications Medication Instructions Recorded Confirmed Type Apixaban [Eliquis] 5 mg PO BID tab 05/28/21 Rx Ascorbic Acid [Vitamin C] 1,000 mg PO DAILY tab 05/28/21 Rx Cholecalciferol [Vitamin D3 (125 125 mcg PO DAILY tablet 05/28/21 Rx Mcg = 5000 Iu)] Pantoprazole Sodium [Protonix] 40 mg PO DAILY #30 tab 05/28/21 Rx ALPRAZolam [Xanax] 0.5 mg PO TID PRN 08/06/21 08/06/21 History Folic Acid 1 mg PO DAILY 08/06/21 08/06/21 History Levothyroxine Sodium [Synthroid] 150 mcg PO DAILY 08/06/21 08/06/21 History Metoprolol Tartrate [Lopressor] 25 mg PO BID 08/06/21 08/06/21 History Ondansetron [Zofran] 4 mg PO Q6H PRN 08/06/21 08/06/21 History Sodium Chloride [[place]] 1 spr EA NOSTRIL BID 08/06/21 08/06/21 History Allergies Allergy/AdvReac Type Severity Reaction Status Date / Time No Known Allergies Allergy Verified 08/06/21 13:28 Physical Exam Vitals: Vital Signs Temp Pulse Resp BP Pulse Ox 08/06/21 12:21 98 F 71 22 112/74 100 Intake and Output 08/05/21 08/06/21 08/06/21 22:59 06:59 14:59 Other: Weight 88.451 kg Results 08/06/21 13:20 CBC 08/06/21 Range/Units 13:20 WBC 6.6 (3.8-10.6) k/uL RBC 4.56 (3.80-5.40) m/uL Hgb 14.1 (11.4-16.0) gm/dL Hct 43.7 (34.0-46.0) % Plt Count 326 (150-450) k/uL Current Medications Generic Name Dose Route Start Last Admin Trade Name Freq PRN Reason Stop Dose Admin Atorvastatin Calcium 80 mg 08/06/21 21:00 Atorvastatin 80 Mg Tab PO HS MAUREEN Heparin Sodium (Porcine) 0 unit 08/06/21 13:31 Heparin Sodium 1,000 Un/Ml (10ml Vl) IV PER PROTOCOL PRN Low PTT Protocol Heparin Sodium/Sodium Chloride 250 mls @ 10 mls/hr 08/06/21 17:00 25,000 unit/ Sodium Chloride IV .Q24H MAUREEN Protocol 11.306 UNITS/KG/HR Metoprolol Tartrate 12.5 mg 04/26/22 21:00 Metoprolol Tartrate 12.5 Mg Tab PO BID MAUREEN Nitroglycerin 0.5 inch 08/06/21 22:00 Nitroglycerin Oint 1 Inch/Gm Packet TOPICAL Q8H MAUREEN Intake and Output 08/05/21 08/06/21 08/06/21 22:59 06:59 14:59 Other: Weight 88.451 kg Patient Weight 08/07/21 06:59 Weight 88.451 kg 08/06/21 13:20
[2021-08-06 14:02] LABS: Glucose,Whole Blood 60 mg/dL (75-99)
--- NOTE | 2021-08-06 14:14 | XR ---
EXAMINATION TYPE: XR chest 2V DATE OF EXAM: 08/06/2021 COMPARISON: Chest x-ray dated 07/16/2021 HISTORY: Chest pain TECHNIQUE: Frontal and lateral views of the chest are obtained. FINDINGS: Lung volumes are low. Minimal patchy basilar density is noted. There are overlying leads. T here is no pleural effusion or pneumothorax seen. The cardiac silhouette size is within normal limit s. Prominence of the azygos region is again seen. The osseous structures are intact. IMPRESSION: There may be some basilar atelectasis or scarring, possible residual from prior Covid in fection.
--- NOTE | 2021-08-06 14:46 | CT ---
EXAMINATION TYPE: CT angio chest DATE OF EXAM: 08/06/2021 COMPARISON: CTA chest April 24, 2021 HISTORY: SOB, ELEVATED D-DIMER, AND CHEST PAIN. CT DLP: 396.3 mGycm. Automated Exposure Control for Dose Reduction was Utilized. CONTRAST: CTA scan of the thorax is performed with IV Contrast, patient injected with 100 mL of Isovue 370, pul monary embolism protocol. MIP Images are created on CT scanner and reviewed. FINDINGS: LUNGS: Areas of multifocal groundglass opacity and reticulation bilaterally are now present where was more diffuse on prior CT. No pleural effusion or pneumothorax is seen. MEDIASTINUM: There is slightly suboptimal bolus with near equal contrast in the right and left heart systems. No convincing CT evidence for acute pulmonary embolism. Stable mild cardiomegaly. No thorac ic aortic aneurysm or dissection. There are no greater than 1 cm hilar or mediastinal lymph nodes. No cardiomegaly or pericardial effusion is seen. OTHER: No additional significant abnormality is seen. IMPRESSION: 1. Suboptimal study without CT evidence for acute pulmonary embolism. 2. Mild cardiomegaly with bilateral edema and/or multifocal infiltrates. Correlate clinically.
[2021-08-06 16:43] VITALS: RESP 18
[2021-08-06] MEDS ORDERED: HEPARIN SOD,PORK IN 0.45% NACL 25,000 UNIT in 0.45% NACL 1 250ML.BAG IV SCH (17:00)
[2021-08-06] MEDS ORDERED: ALPRAZolam 0.5 MG TAB PO PRN (20:20)
[2021-08-06] MEDS ORDERED: ACETAMINOPHEN TAB 325 MG TAB PO PRN (20:23)
[2021-08-06] MEDS ORDERED: METOPROLOL TARTRATE 12.5 MG TAB PO SCH (21:00)
[2021-08-06] MEDS ORDERED: METOPROLOL TARTRATE 25 MG TAB PO SCH (21:00)
[2021-08-06] MEDS ORDERED: ATORVASTATIN 80 MG TAB PO SCH (21:00)
[2021-08-06] MEDS: NITROGLYCERIN OINT 1 INCH/GM PACKET TOPICAL SCH (21:02)
[2021-08-07 03:41] VITALS: TEMP 98.4
[2021-08-07] MEDS: NITROGLYCERIN OINT 1 INCH/GM PACKET TOPICAL SCH (06:13)
[2021-08-07] MEDS ORDERED: LEVOTHYROXINE 75 MCG TAB PO SCH (06:30)
[2021-08-07] MEDS ORDERED: PANTOPRAZOLE 40 MG TABLET PO SCH (07:30)
[2021-08-07 08:53] LABS: Basophils % (A) 1 %; Eosinophils # (A) 0.2 k/uL (0-0.7); Eosinophils % (A) 3 %; HCT 39.5 % (34.0-46.0); HGB 12.6 gm/dL (11.4-16.0); Lymphocytes # (A) 2.4 k/uL (1.0-4.8); Lymphocytes % (A) 40 %; MCHC 31.8 g/dL (31.0-37.0); MCV 97.5 fL (80.0-100.0); Mean Platelet Volume 7.6; Monocytes # (A) 0.4 k/uL (0-1.0); Monocytes % (A) 7 %; Neutrophils # (A) 2.8 k/uL (1.3-7.7); Neutrophils % (A) 47 %; Platelet Count 310 k/uL (150-450); RBC 4.05 m/uL (3.80-5.40); RDW 13.9 % (11.5-15.5)
[2021-08-07] MEDS ORDERED: ASPIRIN 81 MG PO SCH (09:00)
[2021-08-07] MEDS ORDERED: AMINOPHYLLINE 500 MG/20 ML VIAL IV PRN (09:04)
[2021-08-07] MEDS ORDERED: REGADENOSON 0.4 MG/5 ML SYRINGE IV PRN (09:04)
[2021-08-07] MEDS ORDERED: CAFFEINE CITRATE 60 MG/3 ML VIAL IV PRN (09:04)
[2021-08-07 09:16] LABS: INR 0.9 (<1.2); Partial Thromboplastin Time 49.7 sec (22.0-30.0)
--- NOTE | 2021-08-07 09:38 | P.PN ---
Progress Note - Text Patient is chest pain-free. Cardiac enzymes have been negative. Her initial clinical presentation seems to be related to anxiety. I'm going to obtain a Lexiscan and if that shows ischemia consider cardiac catheterization I'm waiting on the echo results at this time. His computed tomography scan of the chest was negative for pulmonary embolism and was mild cardiomegaly with multifocal infiltrates probably related to the leiva virus infection that the patient has had On exam she is comfortable at rest vital signs are stable chest exam reveals good air entry bilaterally heart exam vessel second heart sounds no gallop exam extremities did not reveal any edema per for pulses are felt Labs: Troponins have been negative Assessment and plan: Precordial chest pain Myocardial infarction is ruled out I will obtain a stress test if she has significant ischemia consider cardiac catheterization
--- NOTE | 2021-08-07 12:28 | NM ---
EXAMINATION TYPE: NM stress lexiscan cardiolite DATE OF EXAM: 08/07/2021 COMPARISON: NONE HISTORY: Chest pain TECHNIQUE: After the intravenous administration of 9.4 mCi Tc 99m Sestamibi - Cardiolite resting SPE CT images acquired 65 minutes post injection. The patient received 0.4mg Lexiscan, 25.3 mCi Tc 99m Sestamibi - Stress images obtained [address] injection FINDINGS: Review of stress and rest SPECT images demonstrates no decreased uptake along the inferolateral left ventricle towards the apex on stress and rest images. Gated analysis shows normal wall motion with a n estimated left ventricular ejection fraction of 52%. IMPRESSION: No scintigraphic evidence for reversible ischemia. Difficult to exclude previous infarct towards the apex on the inferolateral left ventricle.
--- NOTE | 2021-08-07 12:44 | CA ---
Transthoracic Echo Report Name: Jaelyn Mcguire Age: 46 Gender: F : 1975 Exam Date: 08/07/2021 08:43 Exam Location: [place] Echo Ht (in): 64 Wt (lb): 195 Ordering Physician: Smita Morales Attending/Referring Phys: [id number], Carmen Head [employer] Operator Maya Briggs, LADARIUS Procedure CPT: Indications: LV function, chest pain Cardiac Hx: HTN Technical Quality: Good Contrast 1: N/A Total Dose (mL): Contrast 2: Lumason Total Dose (mL): MEASUREMENTS (Male / Female) Normal Values 2D ECHO LV Diastolic Diameter PLAX 4.0 cm 4.2 - 5.9 / 3.9 - 5.3 cm LV Systolic Diameter PLAX 3.4 cm IVS Diastolic Thickness 1.0 cm 0.6 - 1.0 / 0.6 - 0.9 cm LVPW Diastolic Thickness 1.6 cm 0.6 - 1.0 / 0.6 - 0.9 cm LV Relative Wall Thickness 0.6 RV Internal Dim ED PLAX 2.7 cm LA Systolic Diameter LX 3.2 cm 3.0 - 4.0 / 2.7 - 3.8 cm LA Volume 59.2 cm 18 - 58 / 22 - 52 cm M-MODE Aortic Root Diameter MM 2.4 cm LA Systolic Diameter MM 3.5 cm LA Ao Ratio MM 1.4 MV E Point Septal Separation 0.7 cm AV Cusp Separation MM 1.9 cm DOPPLER MV Area PHT 3.3 cm Mitral E Point Velocity 91.7 cm/s Mitral A Point Velocity 80.4 cm/s Mitral E to A Ratio 1.1 MV Deceleration Time 230.6 ms MV E' Velocity 6.7 cm/s Mitral E to MV E' Ratio 13.7 TR Peak Velocity 201.1 cm/s TR Peak Gradient 16.2 mmHg Right Ventricular Systolic Press 21.2 mmHg FINDINGS Left Ventricle Left ventricular ejection fraction is estimated at 55-60 %. . Right Ventricle Normal right ventricular size and function. Right ventricular systolic pressure within normal limits. Right Atrium Normal right atrial size. Left Atrium Mildly increased left atrial volume. Mitral Valve Mild mitral regurgitation. Aortic Valve Trileaflet aortic valve. Tricuspid Valve Mild tricuspid regurgitation. Pulmonic Valve Trace pulmonic regurgitation. Pericardium Normal pericardium. Aorta Normal size aortic root. CONCLUSIONS Normal LV size and systolic function. There is a questionable inferobasal hypokinesia but I think overall LV function is well-preserved. Mild mitral and tricuspid insufficiency. No pericardial effusion Previewed by: Dr. Anuj Dutton MD (Electronically Signed) Final Date: 07 August 2021 12:43
--- NOTE | 2021-08-07 13:09 | CA ---
Lexiscan Nuclear Stress Test Report Name: Jaelyn Mcguire Exam Date: 08/07/2021 10:48 Exam Location: [place] Stress Ht (in): 64 Wt (lb): 195 BSA: 1.94 Ordering Phys: Smita Morales Referring Phys: GIANNI, Technologist: Kobi Andre Age: 46 Gender: F : 1975 Procedure CPT: Indications: Reflex order-Stress test ICD-10 Codes: Patient History: Medications: Meds past 24 hrs: Pretest Chest Pain: STRESS TEST Lexiscan Protocol Exercise Duration (min:sec): 01:[address] Depressions (mm): Angina Score: Ruiz Score: Resting HR (bpm): 69 Peak HR (bpm): 104 Resting BP (mmHg): 119 / 75 Peak BP (mmHg): 127 / 66 MPHR: 175 Target HR: 149 % MPHR: 59 METS: 1.0 Total Dose: Peak Dose: Atropine: Double Product: 96487 BP Response: Stress Termination: TEST COMPLETE Stress Symptoms: HEADACHE,DIFFICULTY IN BREATHING,RIGHT SIDED CHEST TIGHTNESS Stress Summary: ECG ANALYSIS Resting ECG: Stress ECG: CONCLUSIONS Inconclusive Lexiscan stress test because of resting EKG changes. The nuclear scan results which are more pertinent report by the radiologist the heart rate went up from 6-92 bpm and the blood pressure changed from 119/75-127/66 Dr. Anuj Dutton MD (Electronically Signed) Final Date: 07 August 2021 13:08
[2021-08-07 15:02] VITALS: BP 94/55; PULSE 100
[2021-08-07 15:25] LABS: HDL Cholesterol 61.7 mg/dL (40.00-60.00); Triglycerides 49.4 mg/dL (0.00-149.00)
[2021-08-07 16:00] LABS: Chol/HDL Ratio 2.67 Ratio
--- NOTE | 2021-08-07 18:46 | HP ---
HISTORY AND PHYSICAL CHIEF COMPLAINT: Chest pain. HISTORY OF PRESENT ILLNESS: This is another admission for this 46-year-old female. She has a strong family history of heart disease. She came to the emergency room with complaints of chest pain, which were somewhat atypical. She had no shortness of breath or diaphoresis. Enzymes are normal. She has some problems with anxiety as well. She had COVID last year and has had a lot of difficulty with shortness of breath and fatigue since then. She did have a severe case and was on a ventilator for a month and wound up with a tracheostomy. She has been doing fairly well and actually her pulmonary function is surprisingly well recovered. REVIEW OF SYSTEMS: She has had no fever, chills, cough, hemoptysis, syncope, palpitations, abdominal pain, nausea, vomiting, diarrhea, melena, hematochezia, jaundice, hepatitis, hematuria frequency, urgency, incontinence, etc. Past medical history, family history, and personal and social histories are all otherwise unremarkable and unchanged. She has been on folic acid, Eliquis 5 mg twice a day, Toprol 50 mg one and a half twice a day, Synthroid 0.15 once a day, Xanax 0.25 t.i.d. p.r.n., vitamin C and vitamin D. She is NOT ALLERGIC TO ANY MEDICATION. She has never smoked. PHYSICAL EXAMINATION: Blood pressure is 139/76 with a pulse of 80, respirations of 32, and she is afebrile. In general she she appeared to be well developed, well nourished, in no acute distress. Skin color is normal. Skin is warm and dry. Lymph nodes are not enlarged. Head, ears, eyes, nose, mouth and throat are normal. Neck veins are not distended. Thyroid is not palpable. The chest is fairly clear. There are occasional rales. Cardiac exam demonstrates sinus rhythm with no murmurs or extra sounds. The abdomen is soft and nontender. Extremities are normal. Neurologically she is intact. She is admitted to the hospital with diagnoses: 1. Chest pain. 2. Family history of coronary artery disease. 3. Recent episode of severe COVID pneumonitis. PLAN: 1. Bedrest. 2. IV fluids. 3. Serial EKGs and enzymes. 4. Cardiology consult. MMODL / IJN: [id number] /
--- NOTE | 2021-08-07 19:46 | DS ---
DISCHARGE SUMMARY CHIEF COMPLAINT: Chest pain. HISTORY OF PRESENT ILLNESS AND PHYSICAL EXAMINATION: Details of this lady's history and physical can be found in the initial workup. LABORATORY STUDIES: While she was in the hospital she had laboratory studies, details of which can be found in the laboratory section of her chart. COURSE IN THE HOSPITAL: After admission she was placed on bedrest, started on intravenous fluids, and she had serial EKGs and enzymes. She was seen by Cardiology. Her studies were negative and it was felt that she could be discharged. She will go home on her usual diet and medications and will follow up in the office. FINAL DIAGNOSIS: 1. Chest pain. 2. Long-haul COVID-19. OPERATIONS: None. CONSULTATION: Cardiology. She is improved. MMODL / IJN: [id number] /
[2021-08-07] MEDS ORDERED: APIXABAN 5 MG TAB PO SCH (21:00)
== END 2021-08-07 15:04 | disposition home or self-care (01) ==
LOC: EC 12:16 → 6NMEDSUR 13:54 → 3SCARD 14:02
PROVIDERS: ADMIT Family Medicine; ATTEND Family Medicine
DX: R07.2 Precordial pain (principal); U09.9 Post COVID-19 condition, unspecified; B97.29 Other coronavirus as the cause of diseases classified elsewhere; I11.9 Hypertensive heart disease without heart failure; F41.9 Anxiety disorder, unspecified; J96.11 Chronic respiratory failure with hypoxia; K21.9 Gastro-esophageal reflux disease without esophagitis; E03.9 Hypothyroidism, unspecified; N32.81 Overactive bladder; I08.1 Rheumatic disorders of both mitral and tricuspid valves; Z87.01 Personal history of pneumonia (recurrent); Z79.01 Long term (current) use of anticoagulants; Z79.890 Hormone replacement therapy; Z79.899 Other long term (current) drug therapy; Z86.711 Personal history of pulmonary embolism; Z90.711 Acquired absence of uterus with remaining cervical stump; Z99.81 Dependence on supplemental oxygen; Z80.3 Family history of malignant neoplasm of breast; Z80.0 Family history of malignant neoplasm of digestive organs; Z82.49 Family history of ischemic heart disease and other diseases of the circulatory system
CPT/HCPCS: 99285; 96365; 96366 ×2; 36415; 93005; 93017; 93306; 85379; 80061; 80053; 82150; 83690; 83735; 84484; 85025 ×2; 85610 ×2; 85730 ×2; 83721; 71046; 71275; 78452; G0378 ×2; A9500; J2785; Q9967; J1644

== ENCOUNTER → 2021-08-28 | Outpatient (CLI) | payer OTHER ==
--- NOTE | 2021-08-28 12:15 | US ---
EXAMINATION TYPE: US thyroid st tissue head/neck DATE OF EXAM: 08/28/2021 COMPARISON: NONE CLINICAL HISTORY: C73 MALIGNANT NEOPLASM OF THYROID GLAND. Thyroidectomy in 2014 Normal appearing tissue seen. No lymphadenopathy seen. Impressions: 1. No recurrent masses within the thyroid bed
== END | disposition home or self-care (01) ==
LOC: RADUSWWP 10:58
PROVIDERS: ATTEND Internal Medicine Endocrinology, Diabetes & Metabolism
DX: C73 Malignant neoplasm of thyroid gland (principal)
CPT/HCPCS: 76536

== ENCOUNTER → 2021-09-10 | Outpatient (CLI) | payer OTHER | END | disposition home or self-care (01) | LOC: LABWHC1 07:10 | PROVIDERS: ATTEND Internal Medicine Endocrinology, Diabetes & Metabolism | DX: C73 Malignant neoplasm of thyroid gland (principal) | CPT/HCPCS: 36415; 84432; 84443; 86800 ==

== ENCOUNTER → 2021-10-23 | Outpatient (CLI) | payer OTHER ==
[2021-10-23 22:55] LABS: HCT 45.2 % (37.2-46.3); HGB 14.1 g/dL (12.0-15.0); MCHC 31.2 g/dL (32.0-37.0); Mean Platelet Volume 11.5 fL (9.5-12.2); NRBC Per 100 WBC 0 /100 WBCS (0.0-0.0); Platelet Count 315 X 10*3/uL (140-440); RBC 4.86 X 10*6/uL (4.10-5.20); RDW 13.7 % (11.5-14.5); WBC 5.21 X 10*3/uL (4.50-10.00)
[2021-10-23 23:28] LABS: African American GFR (CKD) 103.2 (60.0-200.0); Albumin 4.1 g/dL (3.8-4.9); Albumin/Globulin Ratio 1.24 (1.60-3.17); Anion Gap 13.4 mmol/L (10.00-18.00); BUN/Creat Ratio 13.88 Ratio (12.00-20.00); Blood Urea Nitrogen 11.1 mg/dL (9.0-27.0); Calcium 9.3 mg/dL (8.7-10.3); Carbon Dioxide 24.6 mmol/L (20.0-27.5); Globulin 3.3 g/dL (1.6-3.3); Potassium 4.2 mmol/L (3.5-5.5); Total Bilirubin 0.3 mg/dL (0.30-1.20); Total Protein 7.4 g/dL (6.2-8.2)
[2021-10-23 23:50] LABS: Basophils # (A) 0.05 X 10*3/uL (0.00-0.10); Eosinophils # (A) 0.12 X 10*3/uL (0.04-0.35); Eosinophils % (A) 2.3 %; Immature Grans, Automated 0.2 %; Lymphocytes # (A) 2.42 X 10*3/uL (0.90-5.00); Lymphocytes % (A) 46.4 %; Monocytes # (A) 0.73 X 10*3/uL (0.20-1.00); Neutrophils # (A) 1.88 X 10*3/uL (1.80-7.70); Neutrophils % (A) 36.1 %
[2021-10-23 23:51] LABS: RBC Morphology NORMAL
== END | disposition home or self-care (01) ==
LOC: LABWHC1 16:09
PROVIDERS: ATTEND Internal Medicine
DX: F03.90 Unspecified dementia, unspecified severity, without behavioral disturbance, psychotic disturbance, mood disturbance, and anxiety (principal); R60.9 Edema, unspecified
CPT/HCPCS: 36415; 80053; 85025

== ENCOUNTER 2021-12-18 09:37 | Emergency (ER) | payer OTHER ==
[2021-12-18 10:04] VITALS: BP 140/84; PULSE 94; RESP 20; TEMP 98
--- NOTE | 2021-12-18 10:47 | ED ---
Extremity Problem HPI - General Chief complaint: Extremity Problem,Nontraumatic Stated complaint: possible blood clot in leg Source: patient, RN notes reviewed Mode of arrival: ambulatory Limitations: no limitations - History of Present Illness Initial comments: 46-year-old female presents emergency Department chief complaint of left leg pain. Patient states pain has been present for last couple days. Patient does have a history of DVT in that leg states that she is on the leg was states this was diagnosed in April. Denies any chest pain palpitations no back pain denies any bowel, bladder incontinence or retention or saddle anesthesias no lower extremity paresthesias denies any trauma. - Related Data Home Medications Medication Instructions Recorded Confirmed ALPRAZolam [Xanax] 0.5 mg PO TID PRN 08/06/21 08/06/21 Folic Acid 1 mg PO DAILY 08/06/21 08/06/21 Levothyroxine Sodium [Synthroid] 150 mcg PO DAILY 08/06/21 08/06/21 Metoprolol Tartrate [Lopressor] 25 mg PO BID 08/06/21 08/06/21 Ondansetron [Zofran] 4 mg PO Q6H PRN 08/06/21 08/06/21 Sodium Chloride [[place]] 1 spr EA NOSTRIL BID 08/06/21 08/06/21 Previous Rx's Medication Instructions Recorded Apixaban [Eliquis] 5 mg PO BID tab 05/28/21 Ascorbic Acid [Vitamin C] 1,000 mg PO DAILY tab 05/28/21 Cholecalciferol [Vitamin D3 (125 125 mcg PO DAILY tablet 05/28/21 Mcg = 5000 Iu)] Pantoprazole Sodium [Protonix] 40 mg PO DAILY #30 tab 05/28/21 Cyclobenzaprine [Flexeril] 10 mg PO TID PRN #15 tab 12/18/21 Allergies Allergy/AdvReac Type Severity Reaction Status Date / Time No Known Allergies Allergy Verified 12/18/21 10:04 Review of Systems ROS Statement: Those systems with pertinent positive or pertinent negative responses have been documented in the HPI. ROS Other: All systems not noted in ROS Statement are negative. Past Medical History Past Medical History: Cancer, Deep Vein Thrombosis (DVT), GERD/Reflux, Pneumonia, Thyroid Disorder Additional Past Medical History / Comment(s): overactive bladder, Covid with trach, thyroid CA History of Any Multi-Drug Resistant Organisms: None Reported Past Surgical History: Hysterectomy Additional Past Surgical History / Comment(s): partial hysterectomy, 09/11/14 thyroid removal Past Anesthesia/Blood Transfusion Reactions: No Reported Reaction Past Psychological History: Anxiety Smoking Status: Never smoker Past Alcohol Use History: Occasional Past Drug Use History: Marijuana - Past Family History Mother Family Medical History: Cancer, Hypertension Additional Family Medical History / Comment(s): colon cancer. maternal aunt with breast cancer age 40 Sister(s) Family Medical History: Cancer Additional Family Medical History / Comment(s): breast cancer age 49 Father Family Medical History: Hypertension Additional Family Medical History / Comment(s): paternal gradmother breast cancer age 80 General Exam Limitations: no limitations General appearance: alert, in no apparent distress Head exam: Present: atraumatic, normocephalic, normal inspection Eye exam: Present: normal appearance, PERRL, EOMI. Absent: scleral icterus, conjunctival injection, periorbital swelling ENT exam: Present: normal exam, normal oropharynx, mucous membranes moist Neck exam: Present: normal inspection, full ROM. Absent: tenderness, meningismus, lymphadenopathy Respiratory exam: Present: normal lung sounds bilaterally. Absent: respiratory distress, wheezes, rales, rhonchi, stridor Cardiovascular Exam: Present: regular rate, normal rhythm, normal heart sounds. Absent: systolic murmur, diastolic murmur, rubs, gallop, clicks Extremities exam: Present: other (Left lower extremity tenderness of the left calf, pulse equal, neurovascular intact full strength: Equal warmth) Neurological exam: Present: alert Skin exam: Present: warm, dry, intact, normal color. Absent: rash Course Vital Signs 12/18/21 10:02 Temperature 98.0 F Pulse Rate 94 Respiratory 20 Rate Blood Pressure 140/84 O2 Sat by Pulse 96 Oximetry Medical Decision Making - Medical Decision Making Ultrasound is negative for acute DVT pulses equal bilaterally there is no signs of infection. This is muscular pain in nature patient discharged in stable condition return parameters were discussed. Disposition Clinical Impression: Leg pain Disposition: HOME SELF-CARE Condition: Stable Instructions (If sedation given, give patient instructions): Leg Pain (ED) Additional Instructions: Please return to the Emergency Department if symptoms worsen or any other concerns. Prescriptions: Cyclobenzaprine [Flexeril] 10 mg PO TID PRN #15 tab PRN Reason: Muscle Spasm Is patient prescribed a controlled substance at d/c from ED?: No Referrals: Foreign Hannah MD [Primary Care Provider] - 1-2 days Time of Disposition: 11:06
--- NOTE | 2021-12-19 12:14 | US ---
EXAMINATION TYPE: US venous doppler duplex LE LT DATE OF EXAM: 12/19/2021 10:19 AM COMPARISON: Bilateral lower extremity ultrasound September 26, 2021 CLINICAL HISTORY: pain. Left leg pain. History of DVT. Currently on blood thinners. SIDE PERFORMED: Left TECHNIQUE: The lower extremity deep venous system is examined utilizing real time linear array sonog sanjuanita with graded compression, doppler sonography and color-flow sonography. VESSELS IMAGED: Common Femoral Vein Deep Femoral Vein Greater Saphenous Vein * Femoral Vein Popliteal Vein Small Saphenous Vein * Proximal Calf Veins (* superficial vessels) Left Leg: Negative for DVT Grayscale, color doppler, spectral doppler imaging performed of the deep veins of the left lower extr emity. There is normal flow, compressibility, vascular waveforms. IMPRESSION: No ultrasound evidence for acute DVT in the left lower extremity.
== END 2021-12-18 12:06 | disposition home or self-care (01) ==
LOC: EC 09:37
DX: M79.605 Pain in left leg (principal); E07.9 Disorder of thyroid, unspecified; Z79.899 Other long term (current) drug therapy
CPT/HCPCS: 99283

== ENCOUNTER → 2022-04-15 | Outpatient (CLI) | payer OTHER ==
--- NOTE | 2022-04-16 18:44 | MM ---
Reason for Exam: Screening (asymptomatic). Last mammogram was performed 1 year(s) and 6 month(s) ago. Patient History: Menarche at age 10. First Full-Term at age 19. Hysterectomy at age 38. Patient has history of breast feeding. Other cancer, age 39. Paternal grandmother had breast cancer, age 80. Maternal aunt had breast cancer, age 40. Sister had breast cancer, age 49. Risk Values: Tanya 5 year model risk: 1.7%. NCI Lifetime model risk: 18.6%. Prior Study Comparison: 04/11/2019 Left Diagnostic Mammogram, [facility]. 10/12/2019 Bilateral Diagnostic Mammogram, [facility]. 10/19/2020 Bilateral Screening Mammogram, [facility]. Tissue Density: There are scattered fibroglandular densities. Findings: Analyzed By CAD. Subtle underlying nodularity approximately 7:00 position left breast anterior to middle depth is more defined. It becomes more pronounced on 3-D images. Findings may represent underlying cyst. Further evaluation is recommended. Otherwise, no significant change. Overall Assessment: Incomplete: need additional imaging evaluation, BI-RAD 0 Management: Special View Mammogram of the left breast. Including spot 3-D CC, 3-D CC rolled lateral, spot 3-D MLO, and 3-D lateral views. Targeted left breast ultrasound if any persisting abnormality. [facility] will attempt to contact patient to return for supplemental views and ultrasound if indicated. Electronically signed and approved by: Chayo Acevedo M.D. Radiologist
== END | disposition home or self-care (01) ==
LOC: RADMAMWWP 15:52
PROVIDERS: ATTEND Surgery
DX: Z12.31 Encounter for screening mammogram for malignant neoplasm of breast (principal); Z80.3 Family history of malignant neoplasm of breast
CPT/HCPCS: 77063; 77067

== ENCOUNTER → 2022-04-18 | Outpatient (CLI) | payer OTHER ==
--- NOTE | 2022-04-18 14:37 | MM ---
Reason for Exam: Additional evaluation requested from abnormal screening. Last screening mammogram was performed less than 1 month ago. Patient History: Menarche at age 10. First Full-Term at age 19. Hysterectomy at age 38. Patient has history of breast feeding. Other cancer, age 39. Paternal grandmother had breast cancer, age 80. Maternal aunt had breast cancer, age 40. Sister had breast cancer, age 49. Risk Values: Tanya 5 year model risk: 1.7%. NCI Lifetime model risk: 18.6%. Prior Study Comparison: 10/12/2019 Bilateral Diagnostic Mammogram, [facility]. 10/19/2020 Bilateral Screening Mammogram, [facility]. 04/15/2022 Bilateral MG 3D screening mammo w/cad, [facility]. Tissue Density: Left: The breast tissue is heterogeneously dense. This may lower the sensitivity of mammography. Findings: Analyzed By CAD. Persistent nodularity within the left breast at 7:00 anterior to middle depth measuring up to 1.3 cm approximately 5 cm from the nipple. Overall Assessment: Incomplete: need additional imaging evaluation, BI-RAD 0 Management: Diagnostic Breast Ultrasound of the left breast. A clinical breast exam by your physician is recommended on an annual basis and results should be correlated with mammographic findings. This exam should not preclude additional follow-up of suspicious palpable abnormalities. Results were given to the patient verbally at the time of exam. Electronically signed and approved by: Boyd Donnelly D.O.
== END | disposition home or self-care (01) ==
LOC: RADMAMWWP 14:05
PROVIDERS: ATTEND Surgery
DX: C50.919 Malignant neoplasm of unspecified site of unspecified female breast (principal); R92.8 Other abnormal and inconclusive findings on diagnostic imaging of breast; Z80.3 Family history of malignant neoplasm of breast
CPT/HCPCS: 77065; G0279; 77061

== ENCOUNTER 2022-08-25 18:53 | Emergency (ER) | payer OTHER ==
[2022-08-25 18:57] VITALS: RESP 16; TEMP 98.2
--- NOTE | 2022-08-25 18:57 | ED ---
General Adult HPI - General Chief complaint: Upper Respiratory Infection Stated complaint: Cough Time Seen by Provider: 08/25/22 18:56 Source: patient, family, RN notes reviewed Mode of arrival: ambulatory Limitations: no limitations - History of Present Illness Initial comments: Patient is a pleasant 47-year-old female presenting to the emergency Department with cough. Onset of symptoms was 2 days ago. Patient is in the emergency department with family who has similar symptoms. Patient believes her symptoms are not as severe. Patient has minimal associated congestion. No dyspnea. No leg pain or leg swelling. No history of chronic similar problems. - Related Data Home Medications Medication Instructions Recorded Confirmed ALPRAZolam [Xanax] 0.5 mg PO TID PRN 08/06/21 06/13/22 Folic Acid 1 mg PO DAILY 08/06/21 06/13/22 Levothyroxine Sodium [Synthroid] 150 mcg PO DAILY 08/06/21 06/13/22 Metoprolol Tartrate [Lopressor] 25 mg PO BID 08/06/21 06/13/22 Previous Rx's Medication Instructions Recorded Ascorbic Acid [Vitamin C] 1,000 mg PO DAILY tab 05/28/21 Cholecalciferol [Vitamin D3 (125 125 mcg PO DAILY tablet 05/28/21 Mcg = 5000 Iu)] Pantoprazole Sodium [Protonix] 40 mg PO DAILY #30 tab 05/28/21 Allergies Allergy/AdvReac Type Severity Reaction Status Date / Time No Known Allergies Allergy Verified 06/13/22 10:12 Review of Systems ROS Statement: Those systems with pertinent positive or pertinent negative responses have been documented in the HPI. ROS Other: All systems not noted in ROS Statement are negative. Constitutional: Denies: fever, chills Eyes: Denies: eye pain ENT: Reports: congestion. Denies: ear pain Respiratory: Reports: cough. Denies: dyspnea Cardiovascular: Denies: chest pain Endocrine: Denies: fatigue Gastrointestinal: Denies: abdominal pain Genitourinary: Denies: dysuria Past Medical History Past Medical History: Cancer, Deep Vein Thrombosis (DVT), GERD/Reflux, Pneumonia , Thyroid Disorder Additional Past Medical History / Comment(s): overactive bladder, Covid with trach, thyroid CA History of Any Multi-Drug Resistant Organisms: None Reported Past Surgical History: Hysterectomy Additional Past Surgical History / Comment(s): partial hysterectomy, 09/11/14 thyroid removal Past Anesthesia/Blood Transfusion Reactions: No Reported Reaction Past Psychological History: Anxiety Smoking Status: Never smoker Past Alcohol Use History: Occasional Past Drug Use History: Marijuana Additional Drug Use History / Comment(s): occassional use of marijuana per pt - Past Family History Mother Family Medical History: Cancer, Hypertension Additional Family Medical History / Comment(s): colon cancer. maternal aunt with breast cancer age 40 Sister(s) Family Medical History: Cancer Additional Family Medical History / Comment(s): breast cancer age 49 Father Family Medical History: Hypertension Additional Family Medical History / Comment(s): paternal gradmother breast cancer age 80 General Exam Limitations: no limitations General appearance: alert, in no apparent distress Head exam: Present: normocephalic Eye exam: Present: normal appearance Neck exam: Present: normal inspection Respiratory exam: Present: normal lung sounds bilaterally Cardiovascular Exam: Present: regular rate, normal rhythm Extremities exam: Present: normal inspection Neurological exam: Present: alert Psychiatric exam: Present: normal affect, normal mood Skin exam: Present: normal color Course Vital Signs 08/25/22 18:56 Temperature 98.2 F Pulse Rate 105 H Respiratory 16 Rate Blood Pressure 118/75 O2 Sat by Pulse 98 Oximetry Medical Decision Making - Medical Decision Making Was pt. sent in by a medical professional or institution (, PA, TEMPLATE MAKER, urgent care, hospital, or prison...) When possible be specific @ -No Did you speak to anyone other than the patient for history (EMS, parent, family, police, friend...)? What history was obtained from this source @ -No Did you review nursing and triage notes (agree or disagree)? Why? @ -I reviewed and agree with nursing and triage notes Were old charts reviewed (outside hosp., previous admission, EMS record, old EKG, old radiological studies, urgent care reports/EKG's, prison records)? Report findings @ -No old charts were reviewed Differential Diagnosis (chest pain, altered mental status, abdominal pain women, abdominal pain men, vaginal bleeding, weakness, fever, dyspnea, syncope, headache, dizziness, GI bleed, back pain, seizure, CVA, palpatations, mental health)? @ -Differential Dyspnea: Coronary syndrome, arrhythmia, tamponade, asthma, COPD, pulmonary embolism, pneumonia, pneumothorax, pulmonary effusion, anaphylaxis, diabetic ketoacidosis, flailed chest, pulmonary contusion, diaphragmatic rupture, anemia, neuromuscular, this is not meant to be an all-inclusive list. EKG interpreted by me (3pts min.). @ -As above X-rays interpreted by me (1pt min.). @ -None done CT interpreted by me (1pt min.). @ -None done U/S interpreted by me (1pt. min.). @ -None done What testing was considered but not performed or refused? (CT, X-rays, U/S, labs)? Why? @ -None What meds were considered but not given or refused? Why? @ -None Did you discuss the management of the patient with other professionals (professionals i.e. , PA, TEMPLATE MAKER, lab, RT, psych nurse, community mental health social worker, drapery rod assembler, teacher, investigation officer, geriatric case manager)? Give summary @ -No Was smoking cessation discussed for >3mins.? @ -No Was critical care preformed (if so, how long)? @ -No Were there social determinants of health that impacted care today? How? (Homel essness, low income, unemployed, alcoholism, drug addiction, transportation, low edu. Level, literacy, decrease access to med. care, fpc, rehab)? @ -No Was there de-escalation of care discussed even if they declined (Discuss DNR or withdrawal of care, Hospice)? DNR status @ -No What co-morbidities impacted this encounter? (DM, HTN, Smoking, COPD, CAD, Cancer, CVA, ARF, Chemo, Hep., AIDS, mental health diagnosis, sleep apnea, morbid obesity)? @ -None Was patient admitted / discharged? Hospital course, mention meds given and route, prescriptions, significant lab abnormalities, going to OR and other pertinent info. @ -Viral swab pedal negative. Patient updated on results and need for follow- up. Undiagnosed new problem with uncertain prognosis? @ -No Drug Therapy requiring intensive monitoring for toxicity (Heparin, Nitro, Insulin, Cardizem)? @ -No Were any procedures done? @ -No Diagnosis/symptom? @ -Cough Acute, or Chronic, or Acute on Chronic? @ -Acute Uncomplicated (without systemic symptoms) or Complicated (systemic symptoms)? @ -default Side effects of treatment? @ -No Exacerbation, Progression, or Severe Exacerbation? @ -No Poses a threat to life or bodily function? How? (Chest pain, USA, UT, pneumonia, PE, COPD, DKA, ARF, appy, cholecystitis, CVA, Diverticulitis, Homicidal, Suicidal, threat to staff... and all critical care pts) @ -No - Lab Data Lab Results 08/25/22 Range/Units 18:56 Influenza Type A (PCR) Not Detected (Not Detectd) Influenza Type B (PCR) Not Detected (Not Detectd) RSV (PCR) Not Detected (Not Detectd) SARS-CoV-2 (PCR) Not Detected (Not Detectd) Disposition Clinical Impression: Cough Disposition: HOME SELF-CARE Condition: Stable Instructions (If sedation given, give patient instructions): Upper Respiratory Infection (ED), Acute Cough (ED) Additional Instructions: Please do follow-up to primary care physician in the next few days for recheck. Return for difficulty breathing, fevers, worsening or change in symptoms or other concerns. Is patient prescribed a controlled substance at d/c from ED?: No Referrals: Foreign Hannah MD [Primary Care Provider] - 1-2 days Time of Disposition: 20:28
[2022-08-25 20:43] VITALS: BP 126/60; PULSE 68
== END 2022-08-25 20:43 | disposition home or self-care (01) ==
LOC: EC 18:53
DX: R05.9 Cough, unspecified (principal); F41.9 Anxiety disorder, unspecified; E07.9 Disorder of thyroid, unspecified; F12.90 Cannabis use, unspecified, uncomplicated; Z79.890 Hormone replacement therapy; Z79.899 Other long term (current) drug therapy; Z86.16 Personal history of COVID-19; Z20.822 Contact with and (suspected) exposure to COVID-19
CPT/HCPCS: 87636; 99283

== ENCOUNTER → 2022-09-25 | Outpatient (CLI) | payer OTHER | END | disposition home or self-care (01) | LOC: LABWHC1 12:24 | PROVIDERS: ATTEND Internal Medicine Endocrinology, Diabetes & Metabolism | DX: C73 Malignant neoplasm of thyroid gland (principal) | CPT/HCPCS: 36415; 84432; 84443; 86800 ==

== ENCOUNTER 2023-04-24 19:15 | Emergency (ER) | payer OTHER ==
--- NOTE | 2023-04-24 19:41 | ED ---
Extremity Problem HPI - General Source: patient, RN notes reviewed Mode of arrival: ambulatory Limitations: no limitations <Marcelina Martines - Last Filed: 04/24/23 19:40> <Giovanni Reddy - Last Filed: 04/25/23 00:16> - General Chief complaint: Extremity Problem,Nontraumatic Stated complaint: numb legs Time Seen by Provider: 04/24/23 19:40 - History of Present Illness Initial comments: Patient's 41/female presented ER with chief complaint of bilateral leg pain. Patient was sent in by PCP to rule out DVT. Patient does have a history of DVTs. Patient is currently not on any blood thinners. She endorses bilateral calf pain and left thigh pain. Patient denies any shortness of breath, chest pain, fevers, chills, night sweats. (Marcelina Martines) 47-year-old female presenting to the ED with a chief complaint of bilateral leg swelling. Patient states that like swelling intermittent issue however notes over the past few days has had some pain with this as well. Patient does note a history of blood clots approximately 2 years ago after being diagnosed with COVID. Currently not on blood thinners. No chest pain or shortness of breath. (Giovanni Reddy) - Related Data Home Medications Medication Instructions Recorded Confirmed ALPRAZolam [Xanax] 0.5 mg PO TID PRN 08/06/21 06/13/22 Folic Acid 1 mg PO DAILY 08/06/21 06/13/22 Levothyroxine Sodium [Synthroid] 150 mcg PO DAILY 08/06/21 06/13/22 Metoprolol Tartrate [Lopressor] 25 mg PO BID 08/06/21 06/13/22 Previous Rx's Medication Instructions Recorded Ascorbic Acid [Vitamin C] 1,000 mg PO DAILY tab 05/28/21 Cholecalciferol [Vitamin D3 (125 125 mcg PO DAILY tablet 05/28/21 Mcg = 5000 Iu)] Pantoprazole Sodium [Protonix] 40 mg PO DAILY #30 tab 05/28/21 Allergies Allergy/AdvReac Type Severity Reaction Status Date / Time No Known Allergies Allergy Verified 04/24/23 19:35 Review of Systems ROS Other: All systems not noted in ROS Statement are negative. <Marcelina Martines - Last Filed: 04/24/23 19:40> ROS Other: All systems not noted in ROS Statement are negative. <Giovanni Reddy - Last Filed: 04/25/23 00:16> ROS Statement: Those systems with pertinent positive or pertinent negative responses have been documented in the HPI. Past Medical History Past Medical History: Cancer, Deep Vein Thrombosis (DVT), GERD/Reflux, Pneumonia, Thyroid Disorder Additional Past Medical History / Comment(s): overactive bladder, Covid with trach, thyroid CA, DVT History of Any Multi-Drug Resistant Organisms: None Reported Past Surgical History: Hysterectomy Additional Past Surgical History / Comment(s): partial hysterectomy, 09/11/14 thyroid removal Past Anesthesia/Blood Transfusion Reactions: No Reported Reaction Past Psychological History: Anxiety Smoking Status: Never smoker Past Alcohol Use History: Occasional Past Drug Use History: Marijuana - Past Family History Mother Family Medical History: Cancer, Hypertension Additional Family Medical History / Comment(s): colon cancer. maternal aunt with breast cancer age 40 Sister(s) Family Medical History: Cancer Additional Family Medical History / Comment(s): breast cancer age 49 Father Family Medical History: Hypertension Additional Family Medical History / Comment(s): paternal gradmother breast cancer age 80 <Marcelina Martines - Last Filed: 04/24/23 19:40> General Exam Limitations: no limitations <Marcelina Martines - Last Filed: 04/24/23 19:40> General appearance: alert, in no apparent distress, obese (Morbidly obese) Eye exam: Present: normal appearance Neck exam: Present: normal inspection Respiratory exam: Present: normal lung sounds bilaterally Cardiovascular Exam: Present: regular rate, normal rhythm GI/Abdominal exam: Present: soft Extremities exam: Present: other (DP/PT pulses 2+ bilaterally. Patient has plus pitting edema bilaterally. Pain upon squeezing the right calf however patient does report pain of the left. Negative Homans sign bilaterally.) Neurological exam: Present: alert, oriented X3 Skin exam: Present: warm, dry <Giovanni Reddy - Last Filed: 04/25/23 00:16> - General Exam Comments Initial Comments: Visual Physical Exam Vital signs reviewed General: Well-appearing, nontoxic, no acute distress. Head: Normocephalic, atraumatic Eyes: PERRLA, EOMI ENT: Airway patent Chest: Nonlabored breathing Skin: No visual rash, normal skin tone Neuro: Alert and oriented 3 Musculoskeletal: No gross abnormalities (Marcelina Martines) Course Vital Signs 04/24/23 19:30 Temperature 97.9 F Pulse Rate 98 Respiratory 22 Rate Blood Pressure 135/92 O2 Sat by Pulse 97 Oximetry Medical Decision Making <Marcelina Martines - Last Filed: 04/24/23 19:40> <Giovanni Reddy - Last Filed: 04/25/23 00:16> - Medical Decision Making I performed the quick note portion of the exam. Electronically signed by Marcelina Martines PA-C (Marcelina Martines) Was pt. sent in by a medical professional or institution (DERICK Marin, CAR SHIFTER, urgent care, hospital, or alf...) When possible be specific @ -No Did you speak to anyone other than the patient for history (EMS, parent, family, police, friend...)? What history was obtained from this source @ -No Did you review nursing and triage notes (agree or disagree)? Why? @ -I reviewed and agree with nursing and triage notes Were old charts reviewed (outside hosp., previous admission, EMS record, old EKG, old radiological studies, urgent care reports/EKG's, alf records)? Report findings @ -No old charts were reviewed Differential Diagnosis (chest pain, altered mental status, abdominal pain women, abdominal pain men, vaginal bleeding, weakness, fever, dyspnea, syncope, headache, dizziness, GI bleed, back pain, seizure, CVA, palpatations, mental health, musculoskeletal)? @ -Differential Musculoskeletal Muscular strain, contusion, ligament sprain, fracture, arthritis, septic arthritis, bursitis, cellulitis, muscle spasm, nerve compression, DVT, arterial occlusion, herpes zoster, electrolyte abnormality, tumor.... This is not meant to be in all inclusive list EKG interpreted by me (3pts min.). @ -None X-rays interpreted by me (1pt min.). @ -None done CT interpreted by me (1pt min.). @ -None done U/S interpreted by me (1pt. min.). @ -Ultrasound bilateral lower extremities shows no evidence of DVT or other acute finding. What testing was considered but not performed or refused? (CT, X-rays, U/S, labs)? Why? @ -None What meds were considered but not given or refused? Why? @ -None Did you discuss the management of the patient with other professionals (professionals i.e. , PA, CAR SHIFTER, lab, RT, psych nurse, addiction social worker, neonatal icu coordinator, teacher, chief executive officer, field nurse case manager)? Give summary @ -No Was smoking cessation discussed for >3mins.? @ -No Was critical care preformed (if so, how long)? @ -No Were there social determinants of health that impacted care today? How? (Homelessness, low income, unemployed, alcoholism, drug addiction, transportation, low edu. Level, literacy, decrease access to med. care, alf, rehab)? @ -No Was there de-escalation of care discussed even if they declined (Discuss DNR or withdrawal of care, Hospice)? DNR status @ -No What co-morbidities impacted this encounter? (DM, HTN, Smoking, COPD, CAD, Cancer, CVA, ARF, Chemo, Hep., AIDS, mental health diagnosis, sleep apnea, morbid obesity)? @ -None Was patient admitted / discharged? Hospital course, mention meds given and route, prescriptions, significant lab abnormalities, going to OR and other pertinent info. @ -Discharge 47-year-old female presenting to the ED with complaints of intermittent leg swelling and pain sent by PCP to rule out DVT. Ultrasound here reveals no evidence of DVT or other acute finding. Patient denies chest pain or shortness of breath and vital signs at this time stable, afebrile. Patient discharged home in stable condition. Discussed return precautions patient verbalizes agreement. Undiagnosed new problem with uncertain prognosis? @ -No Drug Therapy requiring intensive monitoring for toxicity (Heparin, Nitro, Insulin, Cardizem)? @ -No Were any procedures done? @ -No Diagnosis/symptom? @ -BLE swelling/pain Acute, or Chronic, or Acute on Chronic? @ -Acute Uncomplicated (without systemic symptoms) or Complicated (systemic symptoms)? @ -Uncomplicated Side effects of treatment? @ -No Exacerbation, Progression, or Severe Exacerbation? @ -No Poses a threat to life or bodily function? How? (Chest pain, USA, UT, pneumonia, PE, COPD, DKA, ARF, appy, cholecystitis, CVA, Diverticulitis, Homicidal, Suicidal, threat to staff... and all critical care pts) @ -No (Giovanni Reddy) Disposition <Marcelina Martines - Last Filed: 04/24/23 19:40> Is patient prescribed a controlled substance at d/c from ED?: No Time of Disposition: 00:16 <Giovanni Reddy - Last Filed: 04/25/23 00:16> Clinical Impression: Swelling of lower extremity, Leg pain, bilateral Disposition: HOME SELF-CARE Condition: Good Additional Instructions: Please return to the Emergency Department if symptoms worsen or any other concerns. Please follow up with your PCP. Referrals: Foreign Hannah MD [Primary Care Provider] - 1-2 days
[2023-04-24 19:53] VITALS: TEMP 97.9
[2023-04-24] MEDS ORDERED: KETOROLAC 15 MG/ML 1 ML VIAL IM STA (22:29)
--- NOTE | 2023-04-24 23:37 | US ---
EXAMINATION TYPE: US venous doppler duplex LE BI DATE OF EXAM: 04/24/2023 10:11 PM COMPARISON: Bilateral venous ultrasound April 28, 2021 CLINICAL INDICATION: Female, 47 years old with history of pain; Bilateral leg pain SIDE PERFORMED: Bilateral TECHNIQUE: The lower extremity deep venous system is examined utilizing real time linear array sonog sanjuanita with graded compression, doppler sonography and color-flow sonography. VESSELS IMAGED: Common Femoral Vein Deep Femoral Vein Greater Saphenous Vein * Femoral Vein Popliteal Vein Small Saphenous Vein * Proximal Calf Veins (* superficial vessels) Right Leg: Appears negative for DVT Left Leg: Appears negative for DVT Grayscale, color doppler, spectral doppler imaging performed of the deep veins of the bilateral lower extremities. There is normal flow, compressibility, vascular waveforms. IMPRESSION: No ultrasound evidence for acute DVT in either lower extremity.
[2023-04-25 01:19] VITALS: BP 139/86; PULSE 84; RESP 18
== END 2023-04-25 00:26 | disposition home or self-care (01) ==
LOC: EC 19:15
DX: M79.662 Pain in left lower leg (principal); M79.661 Pain in right lower leg; E07.9 Disorder of thyroid, unspecified; F41.9 Anxiety disorder, unspecified; F12.90 Cannabis use, unspecified, uncomplicated; Z79.890 Hormone replacement therapy; Z79.899 Other long term (current) drug therapy; Z86.16 Personal history of COVID-19
CPT/HCPCS: 93970; 99284; 96372; J1885

== ENCOUNTER 2023-05-19 22:40 | Emergency (ER) | payer OTHER ==
[2023-05-19 23:13] VITALS: TEMP 97.1
--- NOTE | 2023-05-20 03:43 | XR ---
EXAM: XR Chest, 2 Views CLINICAL HISTORY: ITS.REASON XR Reason: dyspnea TECHNIQUE: Frontal and lateral views of the chest. COMPARISON: 04/21/2023 FINDINGS: Lungs: Pulmonary edema. Pleural space: Unremarkable. No pneumothorax. No pleural effusions. Heart: Unremarkable. No cardiomegaly. Mediastinum: Unremarkable. Normal mediastinal contour. Bones/joints: No acute osseous abnormalities. IMPRESSION: Pulmonary edema.
[2023-05-20 04:38] LABS: Basophils % (A) 1 %; Eosinophils # (A) 0.3 k/uL (0-0.7); Eosinophils % (A) 4 %; HCT 44.6 % (34.0-46.0); Lymphocytes # (A) 0.8 k/uL (1.0-4.8); Lymphocytes % (A) 11 %; MCH 30.6 pg (25.0-35.0); MCHC 33.7 g/dL (31.0-37.0); MCV 90.7 fL (80.0-100.0); Mean Platelet Volume 8.2; Monocytes # (A) 0.5 k/uL (0-1.0); Monocytes % (A) 6 %; Neutrophils % (A) 77 %; Platelet Count 363 k/uL (150-450); RBC 4.92 m/uL (3.80-5.40); RDW 13.7 % (11.5-15.5); WBC 7.8 k/uL (3.8-10.6)
[2023-05-20 04:47] LABS: ALT 21 U/L (4-34); AST 33 U/L (14-36); African American GFR (CKD) >90 (>60 ml/min/1.73 sqM); Albumin 4.5 g/dL (3.5-5.0); Alkaline Phosphatase 110 U/L (38-126); Anion Gap 5 mmol/L; Blood Urea Nitrogen 10 mg/dL (7-17); Calcium 9.8 mg/dL (8.4-10.2); Carbon Dioxide 30 mmol/L (22-30); Chloride 103 mmol/L (98-107); Glucose 98 mg/dL (74-99); Non-African American GFR(CKD) >90 (>60 ml/min/1.73 sqM); Potassium 3.9 mmol/L (3.5-5.1); Sodium 138 mmol/L (137-145); Total Bilirubin 0.8 mg/dL (0.2-1.3); Total Protein 8.5 g/dL (6.3-8.2)
[2023-05-20 04:55] LABS: NT-Pro-B-Type Natriuretic Pept 22 pg/mL
[2023-05-20 04:56] LABS: INR 0.9 (<1.2); Partial Thromboplastin Time 28.6 sec (22.0-30.0); Prothrombin Time 10.3 sec (10.0-12.5)
--- NOTE | 2023-05-20 05:17 | ED ---
General Adult HPI - General Chief complaint: Upper Respiratory Infection Stated complaint: Low O2 Time Seen by Provider: 05/20/23 00:04 Source: patient Mode of arrival: ambulatory Limitations: no limitations - History of Present Illness Initial comments: 48-year-old female presents to the ED with a chief complaint of cough. Patient states today onset of cough, congestion. Patient states while she was coughing she checked her pulse ox and found it to be 77% which brought her here to the ED for further evaluation. Currently only notes complaints of cough and congestion. Denies chest pain or shortness of breath. Of note, patient notes history of ongoing leg swelling since history of COVID. States that she is currently on Lasix 40 mg once a day. Other complaints at this time. - Related Data Home Medications Medication Instructions Recorded Confirmed ALPRAZolam [Xanax] 0.5 mg PO TID PRN 08/06/21 06/13/22 Folic Acid 1 mg PO DAILY 08/06/21 06/13/22 Levothyroxine Sodium [Synthroid] 150 mcg PO DAILY 08/06/21 06/13/22 Metoprolol Tartrate [Lopressor] 25 mg PO BID 08/06/21 06/13/22 Previous Rx's Medication Instructions Recorded Ascorbic Acid [Vitamin C] 1,000 mg PO DAILY tab 05/28/21 Cholecalciferol [Vitamin D3 (125 125 mcg PO DAILY tablet 05/28/21 Mcg = 5000 Iu)] Pantoprazole Sodium [Protonix] 40 mg PO DAILY #30 tab 05/28/21 Allergies Allergy/AdvReac Type Severity Reaction Status Date / Time No Known Allergies Allergy Verified 05/19/23 22:58 Review of Systems ROS Statement: Those systems with pertinent positive or pertinent negative responses have been documented in the HPI. ROS Other: All systems not noted in ROS Statement are negative. Past Medical History Past Medical History: Cancer, Deep Vein Thrombosis (DVT), GERD/Reflux, Pneumonia, Thyroid Disorder Additional Past Medical History / Comment(s): overactive bladder, Covid with trach, thyroid CA, DVT History of Any Multi-Drug Resistant Organisms: None Reported Past Surgical History: Hysterectomy Additional Past Surgical History / Comment(s): partial hysterectomy, 09/11/14 thyroid removal Past Anesthesia/Blood Transfusion Reactions: No Reported Reaction Past Psychological History: Anxiety Smoking Status: Never smoker Past Alcohol Use History: Occasional Past Drug Use History: Marijuana - Past Family History Mother Family Medical History: Cancer, Hypertension Additional Family Medical History / Comment(s): colon cancer. maternal aunt with breast cancer age 40 Sister(s) Family Medical History: Cancer Additional Family Medical History / Comment(s): breast cancer age 49 Father Family Medical History: Hypertension Additional Family Medical History / Comment(s): paternal gradmother breast cancer age 80 General Exam Limitations: no limitations General appearance: alert, in no apparent distress Eye exam: Present: normal appearance Neck exam: Present: normal inspection Respiratory exam: Present: normal lung sounds bilaterally Cardiovascular Exam: Present: regular rate, normal rhythm GI/Abdominal exam: Present: soft Neurological exam: Present: alert, oriented X3 Skin exam: Present: warm, dry Course Vital Signs 05/19/23 05/19/23 22:53 23:46 Temperature 97.1 F L Pulse Rate 91 Respiratory 18 18 Rate Blood Pressure 134/75 O2 Sat by Pulse 100 Oximetry Medical Decision Making - Medical Decision Making Was pt. sent in by a medical professional or institution (DERICK Marin, TEXTILE CONVERTER, urgent care, hospital, or skilled nursing...) When possible be specific @ -No Did you speak to anyone other than the patient for history (EMS, parent, family, police, friend...)? What history was obtained from this source @ -No Did you review nursing and triage notes (agree or disagree)? Why? @ -I reviewed and agree with nursing and triage notes Were old charts reviewed (outside hosp., previous admission, EMS record, old EKG, old radiological studies, urgent care reports/EKG's, skilled nursing records)? Report findings @ -Prior chart reviewed in which I saw the patient showing history of leg swelling. At this time ultrasound was negative for DVT. Differential Diagnosis (chest pain, altered mental status, abdominal pain women, abdominal pain men, vaginal bleeding, weakness, fever, dyspnea, syncope, headache, dizziness, GI bleed, back pain, seizure, CVA, palpatations, mental health, musculoskeletal)? @ -Differential Dyspnea: Coronary syndrome, arrhythmia, tamponade, asthma, COPD, pulmonary embolism, pneumonia, pneumothorax, pulmonary effusion, anaphylaxis, diabetic ketoacidosis, flailed chest, pulmonary contusion, diaphragmatic rupture, anemia, neuromuscular, this is not meant to be an all-inclusive list. EKG interpreted by me (3pts min.). @ -As above X-rays interpreted by me (1pt min.). @ -Chest x-ray interpreted by me which showed evidence of pulmonary edema. CT interpreted by me (1pt min.). @ -None done U/S interpreted by me (1pt. min.). @ -None done What testing was considered but not performed or refused? (CT, X-rays, U/S, labs)? Why? @ -None What meds were considered but not given or refused? Why? @ -None Did you discuss the management of the patient with other professionals (professionals i.e. , PA, TEXTILE CONVERTER, lab, RT, psych nurse, social organization professor, bow repairer custom, t eacher, police officer crime prevention, case picker)? Give summary @ -No Was smoking cessation discussed for >3mins.? @ -No Was critical care preformed (if so, how long)? @ -No Were there social determinants of health that impacted care today? How? (Homelessness, low income, unemployed, alcoholism, drug addiction, transportation, low edu. Level, literacy, decrease access to med. care, senior living, rehab)? @ -No Was there de-escalation of care discussed even if they declined (Discuss DNR or withdrawal of care, Hospice)? DNR status @ -No What co-morbidities impacted this encounter? (DM, HTN, Smoking, COPD, CAD, Cancer, CVA, ARF, Chemo, Hep., AIDS, mental health diagnosis, sleep apnea, morbid obesity)? @ -None Was patient admitted / discharged? Hospital course, mention meds given and route, prescriptions, significant lab abnormalities, going to OR and other pertinent info. @ -Discharged Laboratory studies reviewed. CBC unremarkable. Chemistry panel unremarkable. BNP 22. Serology panel negative. Chest x-ray did show some evidence of pulmonary edema. EKG does show evidence of LVH however no acute changes. Patient advised to continue taking her Lasix as prescribed. Provided referral to see cardiology. At this time vital signs stable afebrile. Discharged home in stable condition. Discussed return precautions with patient who verbalizes agreement. Undiagnosed new problem with uncertain prognosis? @ -No Drug Therapy requiring intensive monitoring for toxicity (Heparin, Nitro, Insulin, Cardizem)? @ -No Were any procedures done? @ -No Diagnosis/symptom? @ -Cough and congestion, pulmonary edema Acute, or Chronic, or Acute on Chronic? @ -Acute Uncomplicated (without systemic symptoms) or Complicated (systemic symptoms)? @ -Uncomplicated Side effects of treatment? @ -No Exacerbation, Progression, or Severe Exacerbation? @ -No Poses a threat to life or bodily function? How? (Chest pain, [place], [place], pneumonia, PE, COPD, DKA, ARF, appy, cholecystitis, CVA, Diverticulitis, Homicidal, Suicidal, threat to staff... and all critical care pts) @ -No - Lab Data Result diagrams: 05/20/23 04:15 05/20/23 04:15 Lab Results 05/20/23 05/20/23 05/20/23 Range/Units 02:03 04:15 04:15 WBC 7.8 (3.8-10.6) k/uL RBC 4.92 (3.80-5.40) m/uL Hgb 15.0 (11.4-16.0) gm/dL Hct 44.6 (34.0-46.0) % MCV 90.7 (80.0-100.0) fL MCH 30.6 (25.0-35.0) pg MCHC 33.7 (31.0-37.0) g/dL RDW 13.7 (11.5-15.5) % Plt Count 363 (150-450) k/uL MPV 8.2 Neutrophils % 77 % Lymphocytes % 11 % Monocytes % 6 % Eosinophils % 4 % Basophils % 1 % Neutrophils # 6.0 (1.3-7.7) k/uL Lymphocytes # 0.8 L (1.0-4.8) k/uL Monocytes # 0.5 (0-1.0) k/uL Eosinophils # 0.3 (0-0.7) k/uL Basophils # 0.0 (0-0.2) k/uL PT 10.3 (10.0-12.5) sec INR 0.9 (<1.2) APTT 28.6 (22.0-30.0) sec Sodium (137-145) mmol/L Potassium (3.5-5.1) mmol/L Chloride (98-107) mmol/L Carbon Dioxide (22-30) mmol/L Anion Gap mmol/L BUN (7-17) mg/dL Creatinine (0.52-1.04) mg/dL Est GFR (CKD-EPI)AfAm (>60 ml/min/1.73 sqM) Est GFR (CKD-EPI)NonAf (>60 ml/min/1.73 sqM) Glucose (74-99) mg/dL Calcium (8.4-10.2) mg/dL Total Bilirubin (0.2-1.3) mg/dL AST (14-36) U/L ALT (4-34) U/L Alkaline Phosphatase (38-126) U/L Troponin I (0.000-0.034) ng/mL NT-Pro-B Natriuret Pep pg/mL Total Protein (6.3-8.2) g/dL Albumin (3.5-5.0) g/dL Influenza Type A (PCR) Not Detected (Not Detectd) Influenza Type B (PCR) Not Detected (Not Detectd) RSV (PCR) Not Detected (Not Detectd) SARS-CoV-2 (PCR) Not Detected (Not Detectd) 05/20/23 05/20/23 Range/Units 04:15 04:15 WBC (3.8-10.6) k/uL RBC (3.80-5.40) m/uL Hgb (11.4-16.0) gm/dL Hct (34.0-46.0) % MCV (80.0-100.0) fL MCH (25.0-35.0) pg MCHC (31.0-37.0) g/dL RDW (11.5-15.5) % Plt Count (150-450) k/uL MPV Neutrophils % % Lymphocytes % % Monocytes % % Eosinophils % % Basophils % % Neutrophils # (1.3-7.7) k/uL Lymphocytes # (1.0-4.8) k/uL Monocytes # (0-1.0) k/uL Eosinophils # (0-0.7) k/uL Basophils # (0-0.2) k/uL PT (10.0-12.5) sec INR (<1.2) APTT (22.0-30.0) sec Sodium 138 (137-145) mmol/L Potassium 3.9 (3.5-5.1) mmol/L Chloride 103 (98-107) mmol/L Carbon Dioxide 30 (22-30) mmol/L Anion Gap 5 mmol/L BUN 10 (7-17) mg/dL Creatinine 0.72 (0.52-1.04) mg/dL Est GFR (CKD-EPI)AfAm >90 (>60 ml/min/1.73 sqM) Est GFR (CKD-EPI)NonAf >90 (>60 ml/min/1.73 sqM) Glucose 98 (74-99) mg/dL Calcium 9.8 (8.4-10.2) mg/dL Total Bilirubin 0.8 (0.2-1.3) mg/dL AST 33 (14-36) U/L ALT 21 (4-34) U/L Alkaline Phosphatase 110 (38-126) U/L Troponin I <0.012 (0.000-0.034) ng/mL NT-Pro-B Natriuret Pep 22 pg/mL Total Protein 8.5 H (6.3-8.2) g/dL Albumin 4.5 (3.5-5.0) g/dL Influenza Type A (PCR) (Not Detectd) Influenza Type B (PCR) (Not Detectd) RSV (PCR) (Not Detectd) SARS-CoV-2 (PCR) (Not Detectd) Disposition Clinical Impression: Cough, Pulmonary edema Disposition: HOME SELF-CARE Condition: Good Instructions (If sedation given, give patient instructions): Pulmonary Edema (ED) Additional Instructions: Please return to the Emergency Department if symptoms worsen or any other concerns. Please follow-up with your PCP and cardiology. Continue taking your Lasix as prescribed. Is patient prescribed a controlled substance at d/c from ED?: No Referrals: Foreign Hannah MD [Primary Care Provider] - 1-2 days Blane Mann MD [STAFF PHYSICIAN] - 1-2 days Time of Disposition: 05:25
[2023-05-20 06:05] VITALS: BP 136/61; PULSE 99; RESP 16
== END 2023-05-20 05:47 | disposition home or self-care (01) ==
LOC: EC 22:40
DX: J81.1 Chronic pulmonary edema (principal); R05.9 Cough, unspecified; K21.9 Gastro-esophageal reflux disease without esophagitis; E07.9 Disorder of thyroid, unspecified; F41.9 Anxiety disorder, unspecified; F12.90 Cannabis use, unspecified, uncomplicated; Z79.890 Hormone replacement therapy; Z79.899 Other long term (current) drug therapy; Z20.822 Contact with and (suspected) exposure to COVID-19
CPT/HCPCS: 36415; 71046; 80053; 83880; 84484; 85025; 85610; 85730; 87636; 93005; 99284

== ENCOUNTER → 2023-05-22 | Outpatient (CLI) | payer OTHER ==
--- NOTE | 2023-05-22 16:08 | CT ---
EXAMINATION TYPE: CT angio chest CT DLP: 454.8 mGycm, Automated exposure control for dose reduction was used. DATE OF EXAM: 05/22/2023 3:45 PM COMPARISON: 08/06/2021. CLINICAL INDICATION:Female, 48 years old with history of R06.02 SOB; SOB x3days. TECHNIQUE/CONTRAST: CTA scan of the thorax is performed with IV Contrast, patient injected with 80 ml mL of Isovue 370, M IP images are created and reviewed these are created on a separate workstation.. FINDINGS: Pulmonary Artery: There is no evidence for a filling defect within the pulmonary vasculature to sugge st acute pulmonary embolism. The pulmonary artery is of normal size. Lungs/Pleura: No evidence of focal consolidation, pleural effusion or pneumothorax. Streaky interstit ial lung markings are seen throughout the lungs. Airway: Large airways are patent. Heart: Heart is mildly enlarged for size. Vasculature: No evidence of aortic aneurysm. Mediastinum: No gross evidence of adenopathy. Small hiatal hernia. Musculoskeletal: Mild degenerative disc disease changes are present throughout the thoracolumbar spin e. Soft Tissues: Unremarkable. Lower neck: No significant findings. Upper Abdomen: No significant findings. IMPRESSION: 1. No evidence of pulmonary embolism. 2. 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 3. Small hiatal hernia. 4. Mild cardiomegaly.
== END | disposition home or self-care (01) ==
LOC: RADCTMAIN 15:12
PROVIDERS: ATTEND Internal Medicine
DX: I51.7 Cardiomegaly (principal); K44.9 Diaphragmatic hernia without obstruction or gangrene; R06.02 Shortness of breath
CPT/HCPCS: 71275; Q9967

== ENCOUNTER → 2023-07-22 | Outpatient (CLI) | payer OTHER ==
--- NOTE | 2023-07-22 10:10 | USB ---
Reason for Exam: Clinical finding. Patient History: Menarche at age 10. First Full-Term at age 19. Hysterectomy at age 38. Patient has history of breast feeding. Other cancer, age 39. Patient used Hormonal Contraceptives for 3 years. Paternal grandmother had breast cancer, age 80. Maternal aunt had breast cancer, age 40. Sister had breast cancer, age 49. Risk Values: Tanya 5 year model risk: 1.6%. NCI Lifetime model risk: 14.1%. Technique: Method: Targeted. Prior Study Comparison: 04/15/2022 Bilateral MG 3D screening mammo w/cad, [facility]. 04/18/2022 Left MG 3D work up w/cad LT, [facility]. 01/02/2023 Bilateral MG 3D diag mammo w/cad GERARDO, [facility]. Findings: The area of palpable concern of the left breast, the axilla of the left breast and the retroareolar of the left breast were scanned. No solid or cystic masses are identified. Manage clinically.. Overall Assessment: Negative, BI-RAD 1 Management: Screening Mammogram of both breasts in 5 months. A clinical breast exam by your physician is recommended on an annual basis and results should be correlated with mammographic findings. This exam should not preclude additional follow-up of suspicious palpable abnormalities. Results were given to the patient verbally at the time of exam. Electronically signed and approved by: Serafin Bradley M.D. Radiologis
== END | disposition home or self-care (01) ==
LOC: RADUSWWP 09:37
PROVIDERS: ATTEND Family Medicine
DX: N63.42 Unspecified lump in left breast, subareolar (principal); Z80.3 Family history of malignant neoplasm of breast

== ENCOUNTER → 2023-07-31 | Outpatient (CLI) | payer OTHER ==
--- NOTE | 2023-07-31 12:11 | P.PN ---
Subjective Progress Note Date: 07/31/23 Principal diagnosis: fibrocystic breast changes Subjective Progress Note Date: 06/13/22 Principal diagnosis: Fibrocystic breast changes Jaelyn is a 48-year-old black female who was initially seen approximately 2018 with a complaint of bilateral breast fullness and discomfort. She states that the fullness and discomfort have improved. She has stopped caffeine intake. She has not complained of any lumps masses or nodules in her breast. She had a bilateral mammogram performed on which was benign BIRADS 2. She did not complain of any nipple discharge or skin changes. Her bra size is a 44 DD. She does have shoulder and back pain related to this. Patient most recently had a bilateral mammogram performed on 1322. This revealed scattered fibroglandular densities, with some nodularity in the left breast. A diagnostic mammogram was performed of the left breast on 1622 which revealed heterogeneously dense breast tissue with persistent nodularity. Therefore an ultrasound was recommended and the ultrasound was performed on 04-18-22 showing an anechoic cyst with posterior acoustic enhancement at 7:00. This was felt to be benign BIRADS 2 and bilateral mammogram in 1 year was recommended. She is complaining of some nodularity in the 12 o'clock position of the left breast. She is uncertain as to how long this has been present. She states it is tender at times. She is not certain what makes it hurt. Patient does complain of back pain and shoulder notching. She does have asymmetry of the breast with the left breast being larger than the right breast. Since the patient was last seen she was admitted with COVMA for approximately 54 days. She was on the ventilator and required a trach and feeding tube. 07-31-23 Bilateral mammogram on 01-02-23 and left breast ultrasound. BIRAD 1 repeat ultrasound left breast 07-22-23 BIRAD 1 Her breast are sore and she felt some nodularity in the lateral upper outer area for several months. Nothing was seen on the ultrasound. She has not seen a genetic counselor yet, but states she would like to at this time. At this time she is not interested in a reduction. Caffeine: Negative Nicotine: Negative Chocolate: occasional hormones: Negative Family history: 1.mother: colon cancer 2. maternal grandmother: cervical 3. maternal aunt: stomach 4. maternal aunt: breast 5. sister: breast cancer at 49 pre-menopausal 6. paternal grandmother: breast cancer at 90 7. personal history thyroid cancer Name of her relatives have had genetic counseling. Hormonal history: Menarche: 14 1 [place], breast fed: yes, first born at 19 hysterectomy at 32 BCP: 3 months hormones: none Surgical history: 1.thyroid cancer total thyroidectomy 2. tubal-ligation 3. hysterectomy 4. trach 5. feeding tube Medical history: 1. Hypothyroid 2. post COVID no residual Social History: smoke: none alcohol: occasional rum drugs: none - Constitutional Constitutional: Denies chills, Denies fever - EENT Eyes: bilateral blurred vision (occasional), bilateral pain (occasional) Ears: bilateral: decreased hearing (hearing impaired needs aids) Ears, nose, mouth and throat: Reports headache, Reports sore throat - Breasts Breasts: bilateral: as per HPI - Cardiovascular Cardiovascular: Denies chest pain - Respiratory Respiratory: Denies cough, had COVID with hospitalizations - Gastrointestinal Gastrointestinal: Denies abdominal pain, Denies diarrhea, Denies nausea, Denies vomiting - Genitourinary (Female) Genitourinary: Denies dysuria, Denies hematuria - Menstruation Menstruation: Reports post hysterectomy - Musculoskeletal Comment: right wrist hurts, carpal tunnel Musculoskeletal: Reports myalgias - Integumentary Integumentary: Reports pruritus, Reports rash - Neurological Neurological: Reports numbness, Reports weakness - Psychiatric Psychiatric: Reports anxiety - Endocrine Comment: thyroid resection for cancer Endocrine: Reports weight change - Hematologic/Lymphatic Comment: none - Allergic/Immunologic Comment: none Allergic/Immunologic: Reports as per HPI Objective - Vital Signs Vital signs: Vital Signs Temp 98.3 F 07/31/23 11:43 Pulse 91 07/31/23 11:43 Resp 17 07/31/23 11:43 BP 133/94 07/31/23 11:43 Pulse Ox 98 07/31/23 11:43 FiO2 Intake & Output 07/30/23 07/31/23 07/31/23 18:59 06:59 18:59 Weight 108.862 kg - Constitutional General appearance: Present: cooperative - EENT Eyes: Present: EOMI - Neck Neck: Present: normal ROM - Respiratory Respiratory: bilateral: CTA - Cardiovascular Rhythm: regular Heart sounds: normal: S1, S2 - Integumentary Integumentary: Present: normal turgor - Musculoskeletal Musculoskeletal: Present: gait normal - Psychiatric Psychiatric: Present: A&O x's 3, appropriate affect, intact judgment & insight - Additional findings Additional findings: Breast Exam: BRA: 44DD inspection:bilateral grade 3 ptosis; left breast larger than right breast palpation: right breast: Tattoo, multi-positional exam fibrocystic changes, no dominant masses or nodules of concern Right axilla: No adenopathy of concern Left breast: Multi-positional exam fibrocystic changes, no dominant masses or nodules of concern specific attention to the 12:00 area with the patient has discomfort does not reveal any specific mass or nodule, slight nodularity at the 1-2 OClock region of the left breast seems to be fibrocystic Left axilla: No adenopathy of concern , Assessment and Plan Assessment: Impression: macromastia breast pain shoulder notching back pain fibrocystic breast changes Plan: 1. Bilateral mammogram in December 2023 with appointment 2. Appointment with genetic counselor patient is going to do this 3. patent is considering reduction mammoplasty but is not do this at this time 5. Given the option of seeing a plastic surgeon regarding the reduction mammoplasty and she will discuss this with them 6. primrose oil 7. follow up sooner any concerns CC: Dr. Hannah
[2023-07-31 12:12] VITALS: BP 133/94; PULSE 91; RESP 17; TEMP 98.3
== END ==
LOC: WWCWWP 11:05
PROVIDERS: ATTEND Surgery
DX: R92.8 Other abnormal and inconclusive findings on diagnostic imaging of breast (principal); N64.4 Mastodynia; N62 Hypertrophy of breast; M54.9 Dorsalgia, unspecified; M54.50 Low back pain, unspecified; N60.11 Diffuse cystic mastopathy of right breast; N60.12 Diffuse cystic mastopathy of left breast; M89.8X1 Other specified disorders of bone, shoulder; N63.21 Unspecified lump in the left breast, upper outer quadrant; N64.89 Other specified disorders of breast; N63.25 Unspecified lump in the left breast, overlapping quadrants; U07.1 COVID-19; Z80.3 Family history of malignant neoplasm of breast

== ENCOUNTER → 2023-10-30 | Outpatient (CLI) | payer OTHER ==
--- NOTE | 2023-10-30 11:38 | MM ---
Reason for Exam: Follow-up at short interval from prior study. Last screening mammogram was performed 10 month(s) ago. Patient History: Menarche at age 10. First Full-Term at age 19. Hysterectomy at age 38. Patient has history of breast feeding. Other cancer, age 39. Patient used Hormonal Contraceptives for 3 years. Paternal grandmother had breast cancer, age 80. Maternal aunt had breast cancer, age 40. Maternal grandmother had ovarian cancer at or over age 50. Sister had breast cancer, age 49. Risk Values: Tanya 5 year model risk: 1.6%. NCI Lifetime model risk: 14.1%. Prior Study Comparison: 05/07/2015 Bilateral Diagnostic Mammogram, [facility]. 10/06/2018 Bilateral Diagnostic Mammogram, [facility]. 10/06/2018 Left Diagnostic Ultrasound, [facility]. 04/11/2019 Left Diagnostic Mammogram, [facility]. 10/12/2019 Bilateral Diagnostic Mammogram, [facility]. 10/19/2020 Bilateral Screening Mammogram, [facility]. 04/15/2022 Bilateral MG 3D screening mammo w/cad, [facility]. 04/18/2022 Left MG 3D work up w/cad LT, [facility]. 01/02/2023 Bilateral MG 3D diag mammo w/cad GERARDO, [facility]. Tissue Density: Left: There are scattered areas of fibroglandular density. Findings: Analyzed By CAD. The previously seen inferior nodularity has resolved. No significant change from prior exams. Overall Assessment: Benign, BI-RAD 2 Management: Screening Mammogram of both breasts in 2 months. In time for the patient's annual exam. Results were given to the patient verbally at the time of exam. Patient should continue monthly self-breast exams. A clinical breast exam by your physician is recommended on an annual basis. This exam should not preclude additional follow-up of suspicious palpable abnormalities. Note on Tanya scores and lifetime risk: 1. A Tanya score greater than 3% is considered moderate risk. If this is the case, consider specialist referral to assess eligibility for a risk reducing agent. 2. If overall lifetime risk for the development of breast cancer is 20% or higher, the patient may qualify for future screening with alternating mammogram and breast MRI. Electronically signed and approved by: Chayo Acevedo M.D. Radiologist
== END | disposition home or self-care (01) ==
LOC: RADMAMWWP 10:52
PROVIDERS: ATTEND Surgery
DX: N63.0 Unspecified lump in unspecified breast (principal)
CPT/HCPCS: 77065; G0279; 77061

== ENCOUNTER 2024-03-24 09:21 | Observation (INO) | payer OTHER ==
[2024-03-24] MEDS: ASPIRIN 81 MG PO STA (09:48)
--- NOTE | 2024-03-24 10:05 | ED ---
Chest Pain HPI - General Chief Complaint: Chest Pain Stated Complaint: chest/back pain Time Seen by Provider: 03/24/24 09:35 Source: patient, RN notes reviewed Mode of arrival: ambulatory Limitations: no limitations - History of Present Illness Initial Comments: 48-year-old female presents emergency department chief complaint of chest discomfort. Patient states that pain started yesterday has worsened she has pain in her back and chest. She states she fell like she may have injured self getting into her son's truck pulling her self up. Patient states she does have pain in her chest at rest but pain in her back with movement. Patient has a history of hypertension and states that she was vented and was very ill when she had COVID-19 in the past. Patient request to be tested. Patient denies any prior cardiac stents denies any cough or cold-like symptoms - Related Data Home Medications Medication Instructions Recorded Confirmed ALPRAZolam [Xanax] 0.5 mg PO TID PRN 08/06/21 07/31/23 Folic Acid 1 mg PO DAILY 08/06/21 07/31/23 Levothyroxine Sodium [Synthroid] 125 mcg PO DAILY 08/06/21 07/31/23 Metoprolol Tartrate [Lopressor] 25 mg PO BID 08/06/21 07/31/23 Previous Rx's Medication Instructions Recorded Ascorbic Acid [Vitamin C] 1,000 mg PO DAILY tab 05/28/21 Cholecalciferol [Vitamin D3 (125 125 mcg PO DAILY tablet 05/28/21 Mcg = 5000 Iu)] Pantoprazole Sodium [Protonix] 40 mg PO DAILY #30 tab 05/28/21 Acetaminophen Tab [Tylenol] 650 mg PO Q6H #30 tab 05/20/23 Ibuprofen 600 mg PO Q6H #30 tab 05/20/23 Allergies Allergy/AdvReac Type Severity Reaction Status Date / Time No Known Allergies Allergy Verified 03/24/24 09:28 Review of Systems ROS Statement: Those systems with pertinent positive or pertinent negative responses have been documented in the HPI. ROS Other: All systems not noted in ROS Statement are negative. EKG Findings - EKG Comments: EKG Findings:: EKG performed at 9: 39 sinus rhythm with rate of 75 AK 144 QRS 110 QT/QTc 348/377 noted inverted T wave lead III, aVF, developing bundle branch without significant diffuse ST changes - EKG Results: EKG: interpreted by CHANDAN Past Medical History Past Medical History: Cancer, Deep Vein Thrombosis (DVT), GERD/Reflux, Pneumonia, Thyroid Disorder Additional Past Medical History / Comment(s): overactive bladder, Covid with trach, thyroid CA, DVT History of Any Multi-Drug Resistant Organisms: None Reported Past Surgical History: Hysterectomy Additional Past Surgical History / Comment(s): partial hysterectomy, 09/11/14 thyroid removal Past Anesthesia/Blood Transfusion Reactions: No Reported Reaction Past Psychological History: Anxiety Smoking Status: Never smoker Past Alcohol Use History: Occasional Past Drug Use History: Marijuana - Past Family History Mother Family Medical History: Cancer, Hypertension Additional Family Medical History / Comment(s): colon cancer. maternal aunt with breast cancer age 40 Sister(s) Family Medical History: Cancer Additional Family Medical History / Comment(s): breast cancer age 49 Father Family Medical History: Hypertension Additional Family Medical History / Comment(s): paternal gradmother breast cancer age 80 General Exam Limitations: no limitations General appearance: alert, in no apparent distress Head exam: Present: atraumatic, normocephalic, normal inspection Neck exam: Present: normal inspection, full ROM. Absent: tenderness, meningismus, lymphadenopathy Respiratory exam: Present: normal lung sounds bilaterally. Absent: respiratory distress, wheezes, rales, rhonchi, stridor Cardiovascular Exam: Present: regular rate, normal rhythm, normal heart sounds. Absent: systolic murmur, diastolic murmur, rubs, gallop, clicks GI/Abdominal exam: Present: soft, normal bowel sounds. Absent: distended, tenderness, guarding, rebound, rigid Back exam: Present: normal inspection, full ROM, tenderness Neurological exam: Present: alert, oriented X3, CN II-XII intact, reflexes normal. Absent: motor sensory deficit Course Vital Signs 03/24/24 03/24/24 03/24/24 09:24 09:45 10:17 Temperature 98.3 F Pulse Rate 81 84 77 Respiratory 18 16 16 Rate Blood Pressure 128/74 106/65 O2 Sat by Pulse 100 100 Oximetry 03/24/24 03/24/24 03/24/24 10:30 11:00 11:30 Temperature Pulse Rate 71 75 73 Respiratory 12 16 14 Rate Blood Pressure O2 Sat by Pulse Oximetry Chest Pain MDM - MDM Was pt. sent in by a medical professional or institution (DERICK [place], VERIFIER, urgent care, hospital, or snf...) When possible be specific @ -No Did you speak to anyone other than the patient for history (EMS, parent, family, police, friend...)? What history was obtained from this source @ -No Did you review nursing and triage notes (agree or disagree)? Why? @ -I reviewed and agree with nursing and triage notes Were old charts reviewed (outside hosp., previous admission, EMS record, old EKG, old radiological studies, urgent care reports/EKG's, snf records)? Report findings @ -No old charts were reviewed Differential Diagnosis (chest pain, altered mental status, abdominal pain women, abdominal pain men, vaginal bleeding, weakness, fever, dyspnea, syncope, headache, dizziness, GI bleed, back pain, seizure, CVA, palpatations, mental health, musculoskeletal)? @Differential Chest Pain: Stable Angina, Unstable Angina, STEMI, NSTEMI Aortic Dissection, Pneumothorax, Musculoskeletal, Esophageal Spasm GERD, Cholecystitis, Pancreatitis, Zoster, this is not meant to be an all-inclusive list. EKG interpreted by me (3pts min.). @ -As above X-rays interpreted by me (1pt min.). @ -Chest x-ray shows no acute cardiopulmonary process. CT interpreted by me (1pt min.). @ -None done U/S interpreted by me (1pt. min.). @ -None done What testing was considered but not performed or refused? (CT, X-rays, U/S, labs)? Why? @ -None What meds were considered but not given or refused? Why? @ -None Did you discuss the management of the patient with other professionals (professionals i.e. , DERICK, VERIFIER, lab, RT, psych nurse, social work administrator, family lawyer, teacher, ground nuclear weapons assembly officer, manager of case management)? Give summary @ -Dr. Hannah for admission Was smoking cessation discussed for >3mins.? @ -No Was critical care preformed (if so, how long)? @ -No Were there social determinants of health that impacted care today? How? (Homelessness, low income, unemployed, alcoholism, drug addiction, transportation, low edu. Level, literacy, decrease access to med. care, long-term, rehab)? @ -No Was there de-escalation of care discussed even if they declined (Discuss DNR or withdrawal of care, Hospice)? DNR status @ -No What co-morbidities impacted this encounter? (DM, HTN, Smoking, COPD, CAD, Cancer, CVA, ARF, Chemo, Hep., AIDS, mental health diagnosis, sleep apnea, morbid obesity)? @ -Hypertension Was patient admitted / discharged? Hospital course, mention meds given and route, prescriptions, significant lab abnormalities, going to OR and other pertinent info. @ -Patient is admitted for cardiac rule out patient negative troponin, EKGs and markable from baseline. Patient admitted with cardiology consult Undiagnosed new problem with uncertain prognosis? @ -No Drug Therapy requiring intensive monitoring for toxicity (Heparin, Nitro, Insulin, Cardizem)? @ -No Were any procedures done? @ -No Diagnosis/symptom? @ -Chest pain Acute, or Chronic, or Acute on Chronic? @ -Acute Uncomplicated (without systemic symptoms) or Complicated (systemic symptoms)? @ -Complicated Side effects of treatment? @ -No Exacerbation, Progression, or Severe Exacerbation? @ -No Poses a threat to life or bodily function? How? (Chest pain, [place], [place], pneumonia, PE, COPD, DKA, ARF, appy, cholecystitis, CVA, Diverticulitis, Homicidal, Suicidal, threat to staff... and all critical care pts) @ -Yes possible ACS Disposition Clinical Impression: Chest pain Disposition: ADMITTED IP TO THIS HOSP Condition: Fair Referrals: Foreign Hannah MD [Primary Care Provider] - 1-2 days Time of Disposition: 12:03
[2024-03-24 10:14] LABS: Basophils % (A) 0 %; Eosinophils # (A) 0.5 k/uL (0-0.7); Eosinophils % (A) 7 %; HCT 42.3 % (34.0-46.0); HGB 14.1 gm/dL (11.4-16.0); Lymphocytes # (A) 2.4 k/uL (1.0-4.8); Lymphocytes % (A) 30 %; MCH 30.7 pg (25.0-35.0); MCHC 33.2 g/dL (31.0-37.0); MCV 92.5 fL (80.0-100.0); Mean Platelet Volume 7.9; Monocytes # (A) 0.4 k/uL (0-1.0); Monocytes % (A) 5 %; Neutrophils # (A) 4.3 k/uL (1.3-7.7); Neutrophils % (A) 55 %; Platelet Count 337 k/uL (150-450); RBC 4.58 m/uL (3.80-5.40); RDW 13.3 % (11.5-15.5); WBC 7.9 k/uL (3.8-10.6)
[2024-03-24 10:22] LABS: INR 0.9 (<1.2); Partial Thromboplastin Time 25.8 sec (22.0-30.0); Prothrombin Time 10.2 sec (10.0-12.5)
--- NOTE | 2024-03-24 10:28 | XR ---
EXAMINATION TYPE: XR chest 2V DATE OF EXAM: 03/24/2024 10:13 AM COMPARISON: Chest radiographs from 05/20/2023. CLINICAL INDICATION: Female, 48 years old with history of Chest Pain; TECHNIQUE: XR chest 2V Frontal and lateral views of the chest. FINDINGS: Lungs/Pleura: There is no evidence of pleural effusion, focal consolidation, or pneumothorax. Pulmonary vascularity: Unremarkable. Heart/mediastinum: Cardiomediastinal silhouette is unremarkable. Musculoskeletal: No acute osseous pathology. IMPRESSION: No acute cardiopulmonary disease/process. [facility], , 03/24/2024 10:25 AM
[2024-03-24 10:37] LABS: ALT 18 U/L (4-34); AST 24 U/L (14-36); African American GFR (CKD) >90 (>60 ml/min/1.73 sqM); Albumin 4.4 g/dL (3.5-5.0); Alkaline Phosphatase 112 U/L (38-126); Anion Gap 2 mmol/L; Blood Urea Nitrogen 10 mg/dL (7-17); Calcium 9.9 mg/dL (8.4-10.2); Carbon Dioxide 28 mmol/L (22-30); Chloride 107 mmol/L (98-107); Glucose 93 mg/dL (74-99); Magnesium 2.1 mg/dL (1.6-2.3); Non-African American GFR(CKD) 86 (>60 ml/min/1.73 sqM); Potassium 4.6 mmol/L (3.5-5.1); Sodium 137 mmol/L (137-145); Total Bilirubin 0.7 mg/dL (0.2-1.3); Total Protein 7.9 g/dL (6.3-8.2)
[2024-03-24 10:43] LABS: NT-Pro-B-Type Natriuretic Pept 52 pg/mL
[2024-03-24] MEDS ORDERED: NITROGLYCERIN SL TABS 0.4 MG TAB SUBLINGUAL PRN (12:02)
[2024-03-24] MEDS ORDERED: IBUPROFEN 600 MG TAB PO PRN (14:30)
[2024-03-24] MEDS ORDERED: ACETAMINOPHEN TAB 325 MG TAB PO PRN (14:30)
[2024-03-24 19:28] VITALS: PULSE 88; RESP 18
[2024-03-24] MEDS: METOPROLOL TARTRATE 25 MG TAB PO SCH (23:30)
[2024-03-24] MEDS: ALPRAZolam 0.25 MG TAB PO PRN (23:30)
[2024-03-25] MEDS: LEVOTHYROXINE 125 MCG TAB PO SCH (06:39)
--- NOTE | 2024-03-25 08:38 | P.CRDCN ---
History of Present Illness Consult date: 03/25/24 Consult reason: chest pain History of present illness: This is a 48-year-old female previously seen by Dr. Pang with past medical history of hypertension, thyroid cancer status post thyroidectomy, COVID- pneumonia requiring intubation and tracheostomy in 2021. Patient was last seen in the office in August 2021. We have been asked to evaluate the patient for chest pain. Patient states that she felt like she pulled a muscle in her back yest erday when she was trying to get into a truck. She states she had the chest pain in the back and then it moved around to the front of her chest. It is tender to touch. And tender with movement. No shortness of breath no lightheadedness or dizziness. No palpitations. Blood pressure 100/63, heart rate 88, pulse ox 97% on room air. -EKG: Sinus rhythm with nonspecific ST-T wave changes similar to past EKGs -Chest x-ray: No acute process -Laboratory studies: CBC, D-dimer, CMP all within normal limits. Influenza A, influenza B, RSV, COVID-19 not detected. Troponin negative x 3. proBNP 52. -Home cardiac medications: Lasix 20 mg daily, metoprolol succinate 25 mg daily, potassium chloride 20 mEq daily -Echocardiogram performed 08/07/2021 revealed normal LV size and systolic function. Questionable inferior basal hypokinesia but overall LV function is well-preserved. Mild mitral and tricuspid insufficiency. No pericardial effusion. -Lexiscan Cardiolite stress test performed 08/07/2021 revealed no evidence of reversible ischemia. Difficult to exclude previous infarct towards the apex and the inferior lateral left ventricle. Review Of Systems: At the time of my exam: CONSTITUTIONAL: Denies fever or chills. HEENT: Denies blurred vision, vision changes, or eye pain. Denies hemoptysis CARDIOVASCULAR: Reports chest pain and back pain. Denies orthopnea. Denies PND. Denies palpitations RESPIRATORY: Denies shortness of breath. GASTROINTESTINAL: Denies abdominal pain. Denies nausea or vomiting. HEMATOLOGIC: Denies bleeding disorders. GENITOURINARY: Denies any blood in urine. SKIN: Denies puritis. Denies rash. Physical examination: Gen: This is a 48-year-old female in no acute distress VS: reviewed HEENT: Head is atraumatic, normocephalic. Pupils equal, round. Sclerae is anicteric. NECK: Supple. No JVD. LUNGS: Clear to auscultation. No wheezes or rhonchi. No intercostal retractions. HEART: Regular rate and rhythm. No murmur. + Chest wall tenderness ABDOMEN: Soft No tenderness. EXTREMITIES: No pedal edema. No calf tenderness. NEUROLOGICAL: Patient is awake, alert and oriented x3. Assessment: Atypical chest pain, acute coronary syndrome ruled out History of thyroid cancer History of DVT PE History of COVID-pneumonia requiring intubation tracheostomy in 2021 Plan: Resume patient's home cardiac medications Patient recommended to take Aleve after eating or Tylenol for pain and follow-up in the office in [address] Pang. Thank you kindly for this consultation. Nurse practitioner note has been reviewed, I agree with documented findings and plan of care. Patient was seen and examined. Past Medical History Past Medical History: Cancer, Deep Vein Thrombosis (DVT), GERD/Reflux, Pneumonia, Pulmonary Embolus (PE), Thyroid Disorder Additional Past Medical History / Comment(s): overactive bladder, Covid with trach, thyroid CA, DVT History of Any Multi-Drug Resistant Organisms: None Reported Past Surgical History: Hysterectomy Additional Past Surgical History / Comment(s): partial hysterectomy, 09/11/14 thyroid removal Past Anesthesia/Blood Transfusion Reactions: No Reported Reaction Past Psychological History: Anxiety Smoking Status: Never smoker Past Alcohol Use History: Occasional Past Drug Use History: Marijuana Additional Drug Use History / Comment(s): occassional use of marijuana per pt - Past Family History Mother Family Medical History: Cancer, Hypertension Additional Family Medical History / Comment(s): colon cancer. maternal aunt with breast cancer age 40 Sister(s) Family Medical History: Cancer Additional Family Medical History / Comment(s): breast cancer age 49 Father Family Medical History: Hypertension Additional Family Medical History / Comment(s): paternal gradmother breast cancer age 80 Brother(s) Family Medical History: Cancer Additional Family Medical History / Comment(s): throat cancer Medications and Allergies Home Medications Medication Instructions Recorded Confirmed Type Cholecalciferol [Vitamin D3 (125 125 mcg PO DAILY tablet 05/28/21 03/24/24 Rx Mcg = 5000 Iu)] Pantoprazole Sodium [Protonix] 40 mg PO DAILY #30 tab 05/28/21 03/24/24 Rx Folic Acid 1 mg PO DAILY 08/06/21 03/24/24 History ALPRAZolam [Xanax] 1 mg PO TID PRN 03/24/24 03/24/24 History Furosemide [Lasix] 20 mg PO DAILY 03/24/24 03/24/24 History Ibuprofen [Motrin Ib] 800 mg PO DAILY PRN 03/24/24 03/24/24 History Levothyroxine Sodium [Synthroid] 25 mcg PO DAILY 03/24/24 03/24/24 History Levothyroxine Sodium [Synthroid] 200 mcg PO DAILY 03/24/24 03/24/24 History Metoprolol Succinate (ER) [Toprol 25 mg PO DAILY 03/24/24 03/24/24 History Xl] Multivitamins, Thera [Multivitamin 1 tab PO DAILY 03/24/24 03/24/24 History (formulary)] Potassium Chloride [Klor-Con M20] 20 meq PO DAILY 03/24/24 03/24/24 History Allergies Allergy/AdvReac Type Severity Reaction Status Date / Time No Known Allergies Allergy Verified 03/24/24 14:42 Physical Exam Vitals: Vital Signs Temp Pulse Pulse Resp BP BP Pulse Ox 03/25/24 01:26 98.2 F 89 18 129/71 97 03/24/24 20:55 97.9 F 83 18 117/64 97 03/24/24 20:01 98.7 F 03/24/24 19:00 88 18 138/92 03/24/24 17:00 80 19 136/84 03/24/24 14:00 75 16 133/82 99 03/24/24 12:14 98.9 F 77 16 133/86 100 03/24/24 11:30 73 14 03/24/24 11:00 75 16 03/24/24 10:30 71 12 03/24/24 10:17 77 16 106/65 100 03/24/24 09:45 84 16 03/24/24 09:24 98.3 F 81 18 128/74 100 Intake and Output 03/24/24 03/25/24 03/25/24 22:59 06:59 14:59 Intake Total 960 0 Balance 960 0 Intake: Oral 960 0 Other: # Voids 2 3 Weight 117.934 kg Results 03/24/24 09:56 03/24/24 09:56 Cardiac Enzymes 03/24/2424 03/24/24 Range/Units 09:56 09:56 12:53 AST 24 (14-36) U/L Troponin I <0.012 <0.012 (0.000-0.034) ng/mL 03/24/24 Range/Units 16:18 AST (14-36) U/L Troponin I <0.012 (0.000-0.034) ng/mL Coagulation 03/24/24 Range/Units 09:56 PT 10.2 (10.0-12.5) sec APTT 25.8 (22.0-30.0) sec CBC 03/24/24 Range/Units 09:56 WBC 7.9 (3.8-10.6) k/uL RBC 4.58 (3.80-5.40) m/uL Hgb 14.1 (11.4-16.0) gm/dL Hct 42.3 (34.0-46.0) % Plt Count 337 (150-450) k/uL Comprehensive Metabolic Panel 03/24/24 Range/Units 09:56 Sodium 137 (137-145) mmol/L Potassium 4.6 (3.5-5.1) mmol/L Chloride 107 (98-107) mmol/L Carbon Dioxide 28 (22-30) mmol/L BUN 10 (7-17) mg/dL Creatinine 0.82 (0.52-1.04) mg/dL Glucose 93 (74-99) mg/dL Calcium 9.9 (8.4-10.2) mg/dL AST 24 (14-36) U/L ALT 18 (4-34) U/L Alkaline Phosphatase 112 (38-126) U/L Total Protein 7.9 (6.3-8.2) g/dL Albumin 4.4 (3.5-5.0) g/dL Current Medications Generic Name Dose Route Start Last Admin Trade Name Freq PRN Reason Stop Dose Admin Acetaminophen 650 mg 03/24/24 14:30 Acetaminophen Tab 325 Mg Tab PO Q6HR PRN Mild Pain or Fever > 100.5 Alprazolam 0.5 mg 03/24/24 14:17 03/24/24 23:30 Alprazolam 0.25 Mg Tab PO 0.5 mg TID PRN Administration Anxiety Ascorbic Acid 1,000 mg 03/25/24 09:00 Ascorbic Acid 500 Mg Tab PO DAILY [facility] Aspirin 325 mg 03/25/24 09:00 Aspirin 325 Mg Tab PO DAILY [facility] Folic Acid 1 mg 03/25/24 09:00 Folic Acid 1 Mg Tab PO DAILY MAUREEN Ibuprofen 600 mg 03/24/24 14:30 Ibuprofen 600 Mg Tab PO Q6H PRN Moderate Pain (Scale 4 to 6) Levothyroxine Sodium 125 mcg 03/25/24 06:30 03/25/24 06:39 Levothyroxine 125 Mcg Tab PO 125 mcg DAILY@0630 [facility] Administration Metoprolol Tartrate 25 mg 03/24/24 21:00 03/24/24 23:30 Metoprolol Tartrate 25 Mg Tab PO Not Given BID [facility] Nitroglycerin 0.4 mg 03/24/24 12:02 Nitroglycerin Sl Tabs 0.4 Mg Tab SUBLINGUAL Q5M PRN Chest Pain Pantoprazole Sodium 40 mg 03/25/24 09:00 Pantoprazole 40 Mg Tablet PO DAILY [facility] Intake and Output 03/24/24 03/25/24 03/25/24 22:59 06:59 14:59 Intake Total 960 0 Balance 960 0 Intake: Oral 960 0 Other: # Voids 2 3 Weight 117.934 kg 03/24/24 09:56 03/24/24 09:56
[2024-03-25 08:42] LABS: Chol/HDL Ratio 2.98 Ratio; VLDL Calculation 12.02 mg/dL (5.00-40.00)
[2024-03-25] MEDS: ASPIRIN 325 MG TAB PO SCH (09:00)
[2024-03-25] MEDS: PANTOPRAZOLE 40 MG TABLET PO SCH (09:01)
[2024-03-25] MEDS: ASCORBIC ACID 500 MG TAB PO SCH (09:01)
[2024-03-25] MEDS: FOLIC ACID 1 MG TAB PO SCH (09:01)
[2024-03-25 09:13] VITALS: BP 100/63; TEMP 98.6
--- NOTE | 2024-03-25 10:19 | CA ---
Transthoracic Echo Report Name: Jaelyn Mcguire Age: 48 Gender: F : 1975 Exam Date: 03/24/2024 14:53 Exam Location: [place] Echo Ht (in): 64 Wt (lb): 260 Ordering Physician: Kaleb Rogel PAC Attending/Referring Phys: RACHAEL, Pebbles [employer] Helper Cheryl Grossman RDCS Procedure CPT: Indications: Chest Pain Cardiac Hx: Technical Quality: Fair Contrast 1: Total Dose (mL): Contrast 2: Total Dose (mL): MEASUREMENTS (Male / Female) Normal Values 2D ECHO LV Diastolic Diameter PLAX 5.1 cm 4.2 - 5.9 / 3.9 - 5.3 cm LV Systolic Diameter PLAX 3.7 cm IVS Diastolic Thickness 1.2 cm 0.6 - 1.0 / 0.6 - 0.9 cm LVPW Diastolic Thickness 1.0 cm 0.6 - 1.0 / 0.6 - 0.9 cm LV Relative Wall Thickness 0.4 RV Internal Dim ED PLAX 2.9 cm LA Systolic Diameter LX 3.4 cm 3.0 - 4.0 / 2.7 - 3.8 cm LV Diastolic Volume MOD 4C 74.5 cm??? LV Systolic Volume MOD 4C 37.8 cm??? LV Ejection Fraction MOD 4C 49.3 % LV Cardiac Index MOD 4C 1005.2 cm???/min???m??? LV Diastolic Length 4C 6.4 cm LV Systolic Length 4C 5.4 cm LV Diastolic Volume MOD 2C 65.3 cm??? LV Systolic Volume MOD 2C 33.0 cm??? LV Ejection Fraction MOD 2C 49.4 % LV Cardiac Index MOD 2C 881.6 cm???/min???m??? LV Diastolic Length 2C 7.2 cm LV Systolic Length 2C 6.2 cm LA Volume 38.9 cm??? 18 - 58 / 22 - 52 cm??? LA Volume Index 16.4 cm???/m??? 16 - 28 cm???/m??? M-MODE Aortic Root Diameter MM 2.9 cm AV Cusp Separation MM 2.2 cm DOPPLER AV Peak Velocity 131.8 cm/s AV Peak Gradient 7.0 mmHg MV Area PHT 4.7 cm??? Mitral E Point Velocity 106.4 cm/s Mitral A Point Velocity 96.6 cm/s Mitral E to A Ratio 1.1 MV Deceleration Time 161.6 ms MV E' Velocity 6.9 cm/s Mitral E to MV E' Ratio 15.3 TR Peak Velocity 225.6 cm/s TR Peak Gradient 20.4 mmHg Right Ventricular Systolic Press 25.0 mmHg FINDINGS Left Ventricle Left ventricular ejection fraction is estimated at 45-50 %. Left ventricular cavity size normal. Mildly increased septal wall thickness. Mildly reduced global left ventricular systolic function. Right Ventricle Normal right ventricular size and function. Right ventricular systolic pressure within normal limits. Right Atrium Normal right atrial size. No right atrial thrombus or mass seen. Left Atrium Normal left atrial size. No left atrial thrombus or mass present. Mitral Valve Structurally normal mitral valve. No mitral stenosis, regurgitation or prolapse. Aortic Valve Trileaflet aortic valve. No aortic valve stenosis or regurgitation. Tricuspid Valve Structurally normal tricuspid valve. Mild tricuspid regurgitation. Pulmonic Valve Structurally normal pulmonic valve. No pulmonic regurgitation. Pericardium No pericardial or pleural effusion. Aorta Normal size aortic root and proximal ascending aorta. CONCLUSIONS Normal LV size mildly decreased systolic function globally. Mild mitral and tricuspid regurgitation. No pericardial effusion. Right ventricle is normal Previewed by: Dr. Anuj Dutton MD (Electronically Signed) Final Date: 25 March 2024 10:18
--- NOTE | 2024-03-26 01:17 | HP ---
HISTORY AND PHYSICAL CHIEF COMPLAINT: Chest pain. HISTORY OF PRESENT ILLNESS: This is another admission for this 48-year-old female. She presented to the emergency room with pain. Studies in the emergency room were normal. She did not have any diaphoresis. EKG was normal. REVIEW OF SYSTEMS: She denies hemoptysis, fever, chills, sputum production, etc. She does have a cardiac history. Past medical history, family history, personal and social histories are all essentially unremarkable. PHYSICAL EXAMINATION: VITAL SIGNS: Normal. HEAD, EARS, EYES, NOSE, MOUTH, AND THROAT: Normal. CHEST: Clear. CARDIAC: Normal sinus rhythm and no murmurs or extra sounds. ABDOMEN: Soft, nontender, and slightly protuberant. EXTREMITIES: Normal. NEUROLOGICAL: She is intact. ASSESSMENT: She is admitted to the hospital with diagnoses of, 1. Chest pain. 2. History of coronary artery disease. PLAN: 1. Bed rest. 2. IV fluids. 3. Nasal O2. 4. Serial EKGs and enzymes. 5. Cardiology consult. MMODL / SHERINN: [id number] /
--- NOTE | 2024-03-26 06:29 | DS ---
DISCHARGE SUMMARY CHIEF COMPLAINT: Chest pain. HISTORY OF PRESENT ILLNESS AND PHYSICAL EXAM: Details of this lady's history and physical can be found in the initial workup. LABORATORY STUDIES: While she was in the hospital, she had laboratory studies, details of which can be found in the laboratory section of her chart. COURSE IN THE HOSPITAL: After admission, she was placed on bedrest and started on intravenous fluids and serial EKGs and enzymes, all of which were normal. She was seen by Cardiology and her workup was felt to be related to atypical chest pain and it was felt she could be discharged on the . She will go home on her usual activity, diet, and medication and follow up in the office in several days. FINAL DIAGNOSES: 1. Chest pain. 2. Hypertension. OPERATIONS: None. CONSULTATIONS: Cardiology. She is improved. MMODL / IJN: [id number] /
== END 2024-03-25 14:00 | disposition home or self-care (01) ==
LOC: EC 09:21 → 6NMEDSUR 11:40
PROVIDERS: ADMIT Family Medicine; ATTEND Family Medicine
DX: R07.89 Other chest pain (principal); I10 Essential (primary) hypertension; I08.1 Rheumatic disorders of both mitral and tricuspid valves; I25.10 Atherosclerotic heart disease of native coronary artery without angina pectoris; M54.9 Dorsalgia, unspecified; E89.0 Postprocedural hypothyroidism; Z79.890 Hormone replacement therapy; Z79.899 Other long term (current) drug therapy; Z11.52 Encounter for screening for COVID-19; Z11.59 Encounter for screening for other viral diseases; Z86.718 Personal history of other venous thrombosis and embolism; Z86.16 Personal history of COVID-19; Z87.01 Personal history of pneumonia (recurrent); Z85.850 Personal history of malignant neoplasm of thyroid
CPT/HCPCS: 99285; 36415; 93005; 93306; 85379; 83880; 80061; 80053; 83735; 84484; 85025; 85610; 85730; 87636; 71046; G0378 ×2

== ENCOUNTER → 2024-04-15 | Outpatient (CLI) | payer OTHER ==
--- NOTE | 2024-04-15 17:41 | MM ---
Reason for Exam: Screening (asymptomatic). Last mammogram was performed 1 year(s) and 4 month(s) ago. Patient History: Menarche at age 10. First Full-Term at age 19. Hysterectomy at age 38. Patient has history of breast feeding. Patient used Hormonal Contraceptives for 3 years. Paternal grandmother had breast cancer, age 80. Maternal aunt had breast cancer, age 40. Maternal grandmother had ovarian cancer at or over age 50. Sister had breast cancer, age 49. Risk Values: Tanya 5 year model risk: 1.6%. NCI Lifetime model risk: 14.1%. Prior Study Comparison: 04/18/2022 Left MG 3D work up w/cad [facility], [facility]. 01/02/2023 Bilateral MG 3D diag mammo w/cad [facility], [facility]. 10/30/2023 Left MG 3D diag mammo w/cad [facility], [facility]. Tissue Density: There are scattered areas of fibroglandular density. Findings: Analyzed By CAD. The pattern is symmetrical. No significant interval change No suspicious groups of microcalcifications, spiculated or lobular masses, architectural distortion or other secondary signs of malignancy are mammographically apparent. Overall Assessment: Benign, BI-RAD 2 Management: Screening Mammogram of both breasts in 1 year. A negative mammogram report should not preclude additional follow up of suspicious palpable abnormalities. Patient should continue monthly self breast exam. A clinical breast exam by your physician is recommended on an annual basis and results should be correlated with mammographic findings. Note on Tanya scores and lifetime risk: 1. A Tanya score greater than 3% is considered moderate risk. If this is the case, consider specialist referral to assess eligibility for a risk reducing agent. 2. If overall lifetime risk for the development of breast cancer is 20% or higher, the patient may qualify for future screening with alternating mammogram and breast MRI. [facility], , 04/15/2024 5:39 PM. Electronically signed and approved by: Chad Waters D.O. Radiologis
== END | disposition home or self-care (01) ==
LOC: RADMAMWWP 11:57
PROVIDERS: ATTEND Surgery
DX: Z12.31 Encounter for screening mammogram for malignant neoplasm of breast (principal); Z80.3 Family history of malignant neoplasm of breast; R92.323 Mammographic fibroglandular density, bilateral breasts
CPT/HCPCS: 77063; 77067

== ENCOUNTER → 2024-04-21 | Outpatient (CLI) | payer OTHER ==
--- NOTE | 2024-04-21 21:14 | US ---
EXAMINATION TYPE: US thyroid st tissue head/neck DATE OF EXAM: 04/21/2024 COMPARISON: 08/28/2021 CLINICAL INDICATION: Female, 48 years old with history of C73 MALIG OSBALDO OF THYROID GLAND; Hx total th yroidectomy TECHNIQUE: Grayscale and color Doppler imaging of the thyroid gland. FINDINGS: GLAND SIZE: Right Lobe: Surgically absent Left Lobe: Surgically absent Isthmus Thickness: Surgically absent NODULES RIGHT: # of nodules measured on right: 0 LEFT: # of nodules measured on left: 0 ISTHMUS: # of nodules measured in the isthmus: 0 Bilateral neck scanned. Prominent lymph nodes seen bilateral: Largest right lateral neck short axis= 0.3 cm with cortex = 3.2 mm Largest right superior neck short axis= 0.4 cm with cortex = 2.2 mm Largest left lateral neck short axis= 0.4 cm with cortex = 2.3 mm Largest left superior neck short axis= 0.6 cm with cortex = 3.9 mm IMPRESSION: Scattered mildly thickened but nonenlarged lymph nodes in both sides of the neck as above. Correlate with tumor markers as to the need for further evaluation. They may be reactive/post inflammatory. Nadia se surveillance ultrasound follow-up to reassess these lymph nodes for stability/resolution. The thyroidectomy bed remains clear. [facility], , 04/21/2024 9:12 PM
== END | disposition home or self-care (01) ==
LOC: RADUSWWP 15:27
PROVIDERS: ATTEND Internal Medicine Endocrinology, Diabetes & Metabolism
DX: C73 Malignant neoplasm of thyroid gland (principal); E89.0 Postprocedural hypothyroidism
CPT/HCPCS: 76536; 84432; 84443; 86800

== ENCOUNTER 2024-05-21 21:16 | Emergency (ER) | payer OTHER ==
[2024-05-21 21:37] VITALS: RESP 18; TEMP 98.1
[2024-05-21 23:02] LABS: Basophils # (A) 0.1 k/uL (0-0.2); Basophils % (A) 1 %; Eosinophils # (A) 0.9 k/uL (0-0.7); Eosinophils % (A) 11 %; HCT 42.5 % (34.0-46.0); HGB 14.1 gm/dL (11.4-16.0); Lymphocytes # (A) 2.9 k/uL (1.0-4.8); Lymphocytes % (A) 35 %; MCH 30.3 pg (25.0-35.0); MCHC 33.1 g/dL (31.0-37.0); MCV 91.7 fL (80.0-100.0); Mean Platelet Volume 7.6; Monocytes # (A) 0.5 k/uL (0-1.0); Monocytes % (A) 6 %; Neutrophils # (A) 3.9 k/uL (1.3-7.7); Neutrophils % (A) 46 %; Platelet Count 370 k/uL (150-450); RBC 4.64 m/uL (3.80-5.40); RDW 13.5 % (11.5-15.5); WBC 8.5 k/uL (3.8-10.6)
[2024-05-21 23:11] LABS: INR 0.9 (<1.2); Partial Thromboplastin Time 26.9 sec (22.0-30.0); Prothrombin Time 10.5 sec (10.0-12.5)
[2024-05-21 23:16] LABS: ALT 17 U/L (4-34); AST 24 U/L (14-36); African American GFR (CKD) >90 (>60 ml/min/1.73 sqM); Albumin 3.9 g/dL (3.5-5.0); Alkaline Phosphatase 94 U/L (38-126); Anion Gap 4 mmol/L; Blood Urea Nitrogen 12 mg/dL (7-17); Calcium 9.9 mg/dL (8.4-10.2); Carbon Dioxide 32 mmol/L (22-30); Chloride 102 mmol/L (98-107); Glucose 86 mg/dL (74-99); Non-African American GFR(CKD) 82 (>60 ml/min/1.73 sqM); Potassium 4.5 mmol/L (3.5-5.1); Sodium 138 mmol/L (137-145); Total Bilirubin 0.5 mg/dL (0.2-1.3); Total Protein 7.4 g/dL (6.3-8.2)
[2024-05-21] MEDS: ASPIRIN 81 MG PO STA (23:31)
--- NOTE | 2024-05-21 23:42 | ED ---
Chest Pain HPI - General Chief Complaint: Chest Pain Stated Complaint: chest pain, hand numbness Time Seen by Provider: 05/21/24 21:40 Source: patient, family Mode of arrival: wheelchair Limitations: no limitations - History of Present Illness Initial Comments: This patient is a 49-year-old woman who presents evaluation of left-sided chest pain. She states it started in the evening as a fluttering sensation. She states that she also then had a sharp sensation that has been followed by heavy feeling in the breast. It felt like her heart had a fluttering but that has resolved now. She did not have any associated dyspnea, diaphoresis, nausea or vomiting. The initial sensation was brief lasting less than 1 minute but she has had the heavy sensation persisting. Patient had similar symptoms to this, was evaluated in emergency and was to follow-up with cardiology for stress test but states that due to insurance issue she has not had the stress test yet. Patient states that a grandfather had AL at an early age. MD Complaint: chest pain -: hour(s) Onset: during rest Pain Location: left chest - Related Data Home Medications Medication Instructions Recorded Confirmed Folic Acid 1 mg PO DAILY 08/06/21 06/03/24 ALPRAZolam [Xanax] 1 mg PO TID PRN 03/24/24 06/03/24 Furosemide [Lasix] 40 mg PO DAILY 03/24/24 06/03/24 Ibuprofen [Motrin Ib] 800 mg PO DAILY PRN 03/24/24 06/03/24 Levothyroxine Sodium [Synthroid] 25 mcg PO DAILY 03/24/24 06/03/24 Levothyroxine Sodium [Synthroid] 200 mcg PO DAILY 03/24/24 06/03/24 Metoprolol Succinate (ER) [Toprol 25 mg PO DAILY 03/24/24 06/03/24 XL] Multivitamins, Thera [Multivitamin 1 tab PO DAILY 03/24/24 06/03/24 (formulary)] Potassium Chloride [Klor-Con M20] 20 meq PO DAILY 03/24/24 06/03/24 Aspirin [Adult Low Dose Aspirin EC] 81 mg PO DAILY 06/03/24 06/03/24 Previous Rx's Medication Instructions Recorded Cholecalciferol [Vitamin D3 (125 125 mcg PO DAILY tablet 05/28/21 Mcg = 5000 Iu)] Pantoprazole Sodium [Protonix] 40 mg PO DAILY #30 tab 05/28/21 Allergies Allergy/AdvReac Type Severity Reaction Status Date / Time No Known Allergies Allergy Verified 06/03/24 15:35 Review of Systems ROS Statement: Those systems with pertinent positive or pertinent negative responses have been documented in the HPI. ROS Other: All systems not noted in ROS Statement are negative. Constitutional: Denies: fever, chills Respiratory: Denies: cough, dyspnea Cardiovascular: Reports: chest pain. Denies: palpitations, orthopnea, edema, syncope Gastrointestinal: Denies: abdominal pain, nausea, vomiting Genitourinary: Denies: dysuria, hematuria Musculoskeletal: Denies: back pain Skin: Denies: rash Neurological: Denies: headache, weakness, numbness Past Medical History Past Medical History: Cancer, Deep Vein Thrombosis (DVT), GERD/Reflux, Pneumonia, Pulmonary Embolus (PE), Thyroid Disorder Additional Past Medical History / Comment(s): overactive bladder, Covid with trach, thyroid CA, DVT History of Any Multi-Drug Resistant Organisms: None Reported Past Surgical History: Hysterectomy Additional Past Surgical History / Comment(s): partial hysterectomy, 09/11/14 thyroid removal Past Anesthesia/Blood Transfusion Reactions: No Reported Reaction Past Psychological History: Anxiety Smoking Status: Never smoker Past Alcohol Use History: Occasional Past Drug Use History: Marijuana - Past Family History Mother Family Medical History: Cancer, Hypertension Additional Family Medical History / Comment(s): colon cancer. maternal aunt with breast cancer age 40 Sister(s) Family Medical History: Cancer Additional Family Medical History / Comment(s): breast cancer age 49 Father Family Medical History: Hypertension Additional Family Medical History / Comment(s): paternal gradmother breast cancer age 80 Brother(s) Family Medical History: Cancer Additional Family Medical History / Comment(s): throat cancer General Exam Limitations: no limitations General appearance: alert, in no apparent distress Head exam: Present: atraumatic, normocephalic Eye exam: Present: normal appearance. Absent: scleral icterus, conjunctival injection Neck exam: Present: normal inspection Respiratory exam: Present: normal lung sounds bilaterally. Absent: respiratory distress, wheezes, rales, rhonchi, stridor, chest wall tenderness, accessory muscle use Cardiovascular Exam: Present: regular rate, normal rhythm, normal heart sounds. Absent: systolic murmur, diastolic murmur, rubs, gallop GI/Abdominal exam: Present: soft. Absent: distended, tenderness, guarding, rebound, rigid, mass Extremities exam: Present: normal inspection, normal capillary refill. Absent: pedal edema, calf tenderness Back exam: Present: normal inspection. Absent: CVA tenderness (R), CVA tenderness (L) Neurological exam: Present: alert Skin exam: Present: warm, dry, intact, normal color. Absent: rash Course Vital Signs 05/21/24 05/21/24 05/22/24 21:31 23:32 01:12 Temperature 98.1 F Pulse Rate 76 80 86 Respiratory 18 18 18 Rate Blood Pressure 148/78 133/72 140/80 O2 Sat by Pulse 97 Oximetry 05/22/24 02:41 Temperature Pulse Rate 94 Respiratory 18 Rate Blood Pressure 133/86 O2 Sat by Pulse 98 Oximetry Chest Pain MDM - [facility] The patient had chest x-ray that I interpreted as negative for acute infiltrate, pneumothorax, congestive heart failure. Was pt. sent in by a medical professional or institution (, PA, [employer]OCIATE, urgent care, hospital, or halfway...) When possible be specific @ -[No] Did you speak to anyone other than the patient for history (EMS, parent, family, police, friend...)? What history was obtained from this source @ -[No] Did you review nursing and triage notes (agree or disagree)? Why? @ -[I reviewed and agree with nursing and triage notes] Were old charts reviewed (outside hosp., previous admission, EMS record, old EKG, old radiological studies, urgent care reports/EKG's, halfway records)? Report findings @ -[No old charts were reviewed] Differential Diagnosis (chest pain, altered mental status, abdominal pain women, abdominal pain men, vaginal bleeding, weakness, fever, dyspnea, syncope, headache, dizziness, GI bleed, back pain, seizure, CVA, palpatations, mental health, musculoskeletal)? @ -[Differential Chest Pain: Stable Angina, Unstable Angina, STEMI, NSTEMI Aortic Dissection, Pneumothorax, Musculoskeletal, Esophageal Spasm GERD, Cholecystitis, Pancreatitis, Zoster, this is not meant to be an all-inclusive list. EKG interpreted by me (3pts min.). @ -[I interpreted as above] X-rays interpreted by me (1pt min.). @ -[I interpreted as above CT interpreted by me (1pt min.). @ -[None done] U/S interpreted by me (1pt. min.). @ -[None done] What testing was considered but not performed or refused? (CT, X-rays, U/S, labs)? Why? @ -[None] What meds were considered but not given or refused? Why? @ -[None] Did you discuss the management of the patient with other professionals (prof gan i.e. , PA, [employer]OCIATE, lab, RT, psych nurse, social service manager, resp ther, teacher, landcare officer, senior case manager)? Give summary @ -[No] Was smoking cessation discussed for >3mins.? @ -[No] Was critical care preformed (if so, how long)? @ -[No] Were there social determinants of health that impacted care today? How? (Homelessness, low income, unemployed, alcoholism, drug addiction, transportation, low edu. Level, literacy, decrease access to med. care, detention, rehab)? @ -[No] Was there de-escalation of care discussed even if they declined (Discuss DNR or withdrawal of care, Hospice)? DNR status @ -[No] What co-morbidities impacted this encounter? (DM, HTN, Smoking, COPD, CAD, Cancer, CVA, ARF, Chemo, Hep., AIDS, mental health diagnosis, sleep apnea, morbid obesity)? @ -[None] Was patient admitted / discharged? Hospital course, mention meds given and route, prescriptions, significant lab abnormalities, going to OR and other pertinent info. @ -[Patient is 49-year-old woman presenting to have evaluation of chest pain. Given the recent onset of symptoms, 2 troponins are ordered and are negative. At this point the patient would like to go home. Discussed that she should have stress test and offered admission, she is stable to have further workup as outpatient, discussed appropriate further care and follow-up as well as return parameters. Undiagnosed new problem with uncertain prognosis? @ -[No] Drug Therapy requiring intensive monitoring for toxicity (Heparin, Nitro, Insulin, Cardizem)? @ -[No] Were any procedures done? @ -[No] Diagnosis/symptom? @ -[Acute chest pain Acute, or Chronic, or Acute on Chronic? @ -[Acute Uncomplicated (without systemic symptoms) or Complicated (systemic symptoms)? @ -[Uncomplicated Side effects of treatment? @ -[No] Exacerbation, Progression, or Severe Exacerbation? @ -[No] Poses a threat to life or bodily function? How? (Chest pain, USA, AL, pneumonia, PE, COPD, DKA, ARF, appy, cholecystitis, CVA, Diverticulitis, Homicidal, Suici daphne, threat to staff... and all critical care pts) @ -[No] All treatments are based on ideal body weight as in ED triage Disposition Clinical Impression: Chest pain Disposition: HOME SELF-CARE Condition: Good Instructions (If sedation given, give patient instructions): Chest Pain (ED) Is patient prescribed a controlled substance at d/c from ED?: No Referrals: Foreign Hannah MD [Primary Care Provider] - 1-2 days Luis Ro MD [STAFF PHYSICIAN] - 1-2 days
[2024-05-22] LABS: Influenza A Not Detected (Not Detectd); Influenza B Not Detected (Not Detectd); RSV Not Detected (Not Detectd)
[2024-05-22] MEDS: FAMOTIDINE 20 MG/2 ML VIAL IV STA (01:09)
--- NOTE | 2024-05-22 02:06 | XR ---
EXAM: XR Chest, 2 Views CLINICAL HISTORY: ITS.REASON XR Reason: Chest Pain TECHNIQUE: Frontal and lateral views of the chest. COMPARISON: Chest x-ray of 03/24/2024. FINDINGS: Lungs: Unremarkable. No consolidative changes or pleural effusions. Pleural space: See above. Heart: Heart is top normal in size. No cardiomegaly. Mediastinum: Unremarkable. Normal mediastinal contour. Bones/joints: Osseous structures and soft tissues are unremarkable. No acute fracture. Other findings: There is mild hypoaeration. IMPRESSION: 1. Hypoaeration. 2. Heart is top normal in size. 3. No consolidative changes or pleural effusions.
[2024-05-22 02:42] VITALS: BP 133/86; PULSE 94
== END 2024-05-22 02:42 | disposition home or self-care (01) ==
LOC: EC 21:16
DX: R07.89 Other chest pain (principal)
CPT/HCPCS: 36415 ×2; 93005; 80053; 83735; 84484 ×2; 85025; 85610; 85730; 87636; 71046; 99285; 96374; J3490

== ENCOUNTER → 2024-06-13 | Outpatient (CLI) | payer OTHER ==
--- NOTE | 2024-06-13 11:35 | USB ---
Reason for Exam: Clinical finding. Patient History: Menarche at age 10. First Full-Term at age 19. Hysterectomy at age 38. Patient has history of breast feeding. Patient used Hormonal Contraceptives for 3 years. Paternal grandmother had breast cancer, age 80. Maternal aunt had breast cancer, age 40. Maternal grandmother had ovarian cancer at or over age 50. Sister had breast cancer, age 49. Risk Values: Tanya 5 year model risk: 1.7%. NCI Lifetime model risk: 13.9%. Technique: Method: Targeted. Prior Study Comparison: 01/02/2023 Bilateral MG 3D diag mammo w/cad GERARDO, [facility]. 10/30/2023 Left MG 3D diag mammo w/cad LT, [facility]. 04/15/2024 Bilateral MG 3D screening mammo w/cad, [facility]. Findings: The upper outer quadrant of the left breast, the axilla of the left breast and the retroareolar of the left breast were scanned. Targeted ultrasound left breast upper outer quadrant 12:00 o'clock including scanning of the region and axilla for patient's pain. No solid or cystic lesion or axillary adenopathy. Overall Assessment: Benign, BI-RAD 2 Management: Screening Mammogram of both breasts in 10 months. Further clinical management of patient's left breast pain. A clinical breast exam by your physician is recommended on an annual basis and results should be correlated with mammographic findings. This exam should not preclude additional follow-up of suspicious palpable abnormalities. Results were given to the patient verbally at the time of exam. [facility], , 06/13/2024 11:31 AM. Electronically signed and approved by: Chayo Acevedo M.D. Radiologist
== END | disposition home or self-care (01) ==
LOC: RADUSWWP 11:07
PROVIDERS: ATTEND Surgery
DX: N64.4 Mastodynia (principal); N64.59 Other signs and symptoms in breast; Z80.3 Family history of malignant neoplasm of breast; Z92.0 Personal history of contraception

== ENCOUNTER → 2024-07-07 | Outpatient (CLI) | payer OTHER ==
[2024-07-07 19:12] LABS: BUN/Creat Ratio 11.88 Ratio (12.00-20.00); Blood Urea Nitrogen 9.5 mg/dL (9.0-27.0); Calcium 9.2 mg/dL (8.7-10.3); Carbon Dioxide 27.3 mmol/L (21.6-31.8); Chloride 103 mmol/L (96-109); Glucose 82 mg/dL (70-110); Potassium 3.7 mmol/L (3.5-5.5); Sodium 140 mmol/L (135-145)
== END | disposition home or self-care (01) ==
LOC: LABWHC1 15:32
PROVIDERS: ATTEND Internal Medicine Interventional Cardiology
DX: I10 Essential (primary) hypertension (principal)
CPT/HCPCS: 36415; 80048

== ENCOUNTER 2024-10-27 02:22 | Emergency (ER) | payer OTHER ==
--- NOTE | 2024-10-27 02:44 | ED ---
Extremity Problem HPI - General Chief complaint: Extremity Problem,Nontraumatic Stated complaint: Leg Pain Time Seen by Provider: 10/27/24 02:34 Source: patient, RN notes reviewed Mode of arrival: wheelchair Limitations: no limitations - History of Present Illness Initial comments: This is a 49-year-old female who presents to the emergency department for lower extremity pain and swelling. States that her legs have been more swollen and painful than usual over the last 2 days. She has tried elevating them but has not gotten any relief. She is concerned because she broke a tooth along her left lower jaw 4 to 5 days ago and wants to make sure she is not getting an infection that is spreading throughout her body. She does have a history of a DVT in the left lower extremity 3 years ago when she had COVID. She is no longer taking any blood thinners. She does always have residual shortness of breath from the COVID, but does not believe it is necessarily any worse than usual. Denies any chest pain. She is on a water pill daily. She does also note that she has been on her feet more than usual over the last few days. MD Complaint: extremity pain, extremity swelling - Related Data Home Medications Medication Instructions Recorded Confirmed Folic Acid 1 mg PO DAILY 08/06/21 08/27/24 ALPRAZolam [Xanax] 1 mg PO TID PRN 03/24/24 08/27/24 Furosemide [Lasix] 20 mg PO DAILY 03/24/24 08/27/24 Levothyroxine Sodium [Synthroid] 25 mcg PO DAILY 03/24/24 08/27/24 Levothyroxine Sodium [Synthroid] 200 mcg PO DAILY 03/24/24 08/27/24 Metoprolol Succinate (ER) [Toprol 25 mg PO DAILY 03/24/24 08/27/24 XL] Potassium Chloride [Klor-Con M20] 20 meq PO DAILY 03/24/24 08/27/24 Aspirin [Adult Low Dose Aspirin EC] 81 mg PO DAILY 06/03/24 08/27/24 Ascorbic Acid [Vitamin C] 1,000 mg PO DAILY 08/27/24 08/27/24 Losartan [Cozaar] 25 mg PO HS 08/27/24 08/27/24 Multivitamin/Iron/Folic Acid 1 tab PO DAILY 05/17/25 05/17/25 [Centrum Women Tablet] Spironolactone [Aldactone] 12.5 mg PO DAILY 08/27/24 08/27/24 metOLazone [Zaroxolyn] 2.5 mg PO Q48H 08/27/24 08/27/24 Previous Rx's Medication Instructions Recorded Cholecalciferol [Vitamin D3 (125 125 mcg PO DAILY tablet 05/28/21 Mcg = 5000 Iu)] Pantoprazole Sodium [Protonix] 40 mg PO DAILY #30 tab 05/28/21 Allergies Allergy/AdvReac Type Severity Reaction Status Date / Time No Known Allergies Allergy Verified 10/27/24 02:25 Review of Systems ROS Statement: Those systems with pertinent positive or pertinent negative responses have been documented in the HPI. ROS Other: All systems not noted in ROS Statement are negative. Past Medical History Past Medical History: Cancer, Deep Vein Thrombosis (DVT), GERD/Reflux, Hearing D isorder / Deafness, Pneumonia, Pulmonary Embolus (PE), Thyroid Disorder Additional Past Medical History / Comment(s): overactive bladder, Covid with trach, thyroid CA, DVT History of Any Multi-Drug Resistant Organisms: None Reported Past Surgical History: Hysterectomy Additional Past Surgical History / Comment(s): partial hysterectomy, 09/11/14 thyroid removal Past Anesthesia/Blood Transfusion Reactions: No Reported Reaction Past Psychological History: Anxiety Smoking Status: Never smoker Past Alcohol Use History: Occasional Past Drug Use History: Marijuana - Past Family History Mother Family Medical History: Cancer, Hypertension Additional Family Medical History / Comment(s): colon cancer. maternal aunt with breast cancer age 40 Sister(s) Family Medical History: Cancer Additional Family Medical History / Comment(s): breast cancer age 49 Father Family Medical History: Hypertension Additional Family Medical History / Comment(s): paternal gradmother breast cancer age 80 Brother(s) Family Medical History: Cancer Additional Family Medical History / Comment(s): throat cancer General Exam Limitations: no limitations General appearance: alert, in no apparent distress Head exam: Present: atraumatic, normocephalic, normal inspection Respiratory exam: Present: normal lung sounds bilaterally. Absent: respiratory distress, wheezes, rales, rhonchi, stridor Cardiovascular Exam: Present: regular rate, normal rhythm Extremities exam: Present: other (Swelling and tenderness to the bilateral lower extremities. Full range of motion. 2+ DP and PT pulses bilaterally) Neurological exam: Present: alert, oriented X3, CN II-XII intact Psychiatric exam: Present: normal affect, normal mood Skin exam: Present: warm, dry, intact, normal color. Absent: rash Course Vital Signs 10/27/24 10/27/24 10/27/24 02:25 04:11 05:13 Temperature 97.9 F 98.2 F Pulse Rate 86 78 75 Respiratory 17 18 18 Rate Blood Pressure 136/89 129/79 115/71 O2 Sat by Pulse 98 99 98 Oximetry Medical Decision Making - Medical Decision Making This is a 49-year-old female who presents to the emergency department for lower extremity pain and swelling. Was pt. sent in by a medical professional or institution? @ -No Did you speak to anyone other than the patient for history? @ -No Did you review nursing and triage notes? @ -Yes, and I agree, it is accurate with regards to the patient's symptoms. Were old charts reviewed? @ -No Differential Diagnosis? @ -Differential Musculoskeletal Muscular strain, contusion, ligament sprain, fracture, arthritis, septic arthritis, bursitis, cellulitis, muscle spasm, nerve compression, DVT, arterial occlusion, herpes zoster, electrolyte abnormality, tumor.... This is not meant to be in all inclusive list EKG interpreted by me (3pts min.)? @ -Not obtained X-rays interpreted by me (1pt min.)? @ -Chest x-ray obtained. My interpretation identifies pulmonary vascular congestion. CT interpreted by me (1pt min.)? @ -Not obtained U/S interpreted by me (1pt. min.)? @ -Not obtained What testing was considered but not performed? (CT, X-rays, U/S, labs)? Why? @ -None What meds were considered but not given? Why? @ -None Did you discuss the management of the patient with other professionals? @ -No Did you reconcile home meds? @ -No Was smoking cessation discussed for >3mins.? @ -No Was critical care preformed (if so, how long)? @ -No Were there social determinants of health that impacted care today? How? (Homelessness, low income, unemployed, alcoholism, drug addiction, transportation, low edu. Level, literacy, decrease access to med. care, long-term, rehab)? @ -No Was there de-escalation of care discussed even if they declined? (Discuss DNR or withdrawal of care, Hospice)? @ -No What co-morbidities impacted this encounter? (DM, HTN, Smoking, COPD, CAD, Cancer, CVA, Hep., AIDS, mental health diagnosis, sleep apnea, morbid obesity)? @ -Thyroid disorder, history of DVT Was patient admitted / discharged? @ -Discharged. Lab work relatively unremarkable. BNP negative for signs of CHF. D-dimer not elevated to suggest a DVT. TSH elevated at 48.9. This does appear to be a recurrent issue for the patient. Free T4 only slightly low at 0.43. Chest x-ray demonstrates signs of pulmonary vascular congestion. They also noted a left lower lobe infiltrate that could be suggestive of pneumonia versus other etiologies. Patient denies any URI symptoms to suggest this. BNP also not suggestive of CHF. Symptoms likely related to a dependent edema, especially given that she has been on her feet more than normal. However, advised that she will also need slight adjustment on her thyroid medication. She is on Lasix and states that she typically takes 20 mg but increases it to 40 mg when she is more swollen. Advised that she take the 40 mg dose for the next couple of days, elevate her legs is much as possible, and use compression s tockings. Also advised follow-up with her PCP for reevaluation of the swelling and thyroid levels. Patient discharged home in stable condition. Case discussed with ED attending Dr. Dow. Return precautions reviewed in depth, the patient is instructed to return to the emergency department with any new, worsening, or concerning symptoms. Patient verbalized understanding. Undiagnosed new problem with uncertain prognosis? @ -None Drug Therapy requiring intensive monitoring for toxicity (Heparin, Nitro, Insulin, Cardizem)? @ -None Were any procedures done? @ -None Diagnosis/symptom? @ -Dependent edema, low T4 Acute, or Chronic, or Acute on Chronic? @ -Acute Uncomplicated (without systemic symptoms) or Complicated (systemic symptoms)? @ -Uncomplicated Side effects of treatment? @ -None Exacerbation, Progression, or Severe Exacerbation] @ -Not applicable Poses a threat to life or bodily function? @ -No - Lab Data Result diagrams: 10/27/24 04:05 10/27/24 04:05 Lab Results 10/27/24 10/27/24 10/27/24 Range/Units 04:05 04:05 04:05 WBC 8.54 (4.50-10.00) 10*3/uL RBC 4.38 (4.10-5.20) 10*6/uL Hgb 13.7 (12.0-15.0) g/dL Hct 40.3 (37.2-46.3) % MCV 92.0 (80.0-97.0) fL MCH 31.3 (27.0-32.0) pg MCHC 34.0 (32.0-37.0) g/dL Plt Count 354 (140-440) 10*3/uL MPV 10.2 (9.5-12.2) fL Immature Gran % (Auto) 0.2 % Neutrophils % 52.1 % Lymphocytes % 35.0 % Monocytes % 6.3 % Eosinophils % 5.6 % Basophils % 0.8 % Immature Gran # 0.02 (0.00-0.04) 10*3/uL Neutrophils # 4.44 (1.80-7.70) 10*3/uL Lymphocytes # 2.99 (0.90-5.00) 10*3/uL Monocytes # 0.54 (0.20-1.00) 10*3/uL Eosinophils # 0.48 H (0.04-0.35) 10*3/uL Basophils # 0.07 (0.00-0.10) 10*3/uL PT 10.1 (10.0-12.5) sec INR 0.9 (<1.2) D-Dimer 0.59 (<0.60) mg/L FEU Sodium 138 (137-145) mmol/L Potassium 4.0 (3.5-5.1) mmol/L Chloride 102 (98-107) mmol/L Carbon Dioxide 26 (22-30) mmol/L Anion Gap 10 mmol/L BUN 12 (7-17) mg/dL Creatinine 0.97 (0.52-1.04) mg/dL Est GFR (CKD-EPI)AfAm 80 (>60 ml/min/1.73 sqM) Est GFR (CKD-EPI)NonAf 70 (>60 ml/min/1.73 sqM) Glucose 71 L (74-99) mg/dL Calcium 10.1 (8.4-10.2) mg/dL Magnesium 1.8 (1.6-2.3) mg/dL Total Bilirubin 0.5 (0.2-1.3) mg/dL AST 36 (14-36) U/L ALT 29 (4-34) U/L Alkaline Phosphatase 120 (38-126) U/L C-Reactive Protein 1.8 H (<1.0) mg/dL NT-Pro-B Natriuret Pep 44 pg/mL Total Protein 7.4 (6.3-8.2) g/dL Albumin 4.0 (3.5-5.0) g/dL TSH 48.900 H (0.465-4.680) mIU/L Free T4 0.43 L (0.78-2.19) ng/dL - Radiology Data Radiology results: report reviewed, image reviewed Disposition Clinical Impression: Dependent edema, Hypothyroidism, Low serum T4 level Disposition: HOME SELF-CARE Instructions (If sedation given, give patient instructions): Leg Edema (ED) Additional Instructions: Return to the emergency department with any new, worsening, or concerning symptoms. Continue to take the 40 mg dose of your water pill to help with the swelling. Elevate your legs as much as possible and you can also use compressi on stockings. Follow up with your primary care provider in 1-2 days. Is patient prescribed a controlled substance at d/c from ED?: No Referrals: Foreign Hannah MD [Primary Care Provider] - 1-2 days Time of Disposition: 04:56
[2024-10-27 04:12] VITALS: RESP 18
[2024-10-27 04:14] LABS: Basophils # (A) 0.07 10*3/uL (0.00-0.10); Basophils % (A) 0.8 %; Eosinophils # (A) 0.48 10*3/uL (0.04-0.35); Eosinophils % (A) 5.6 %; HCT 40.3 % (37.2-46.3); HGB 13.7 g/dL (12.0-15.0); Lymphocytes # (A) 2.99 10*3/uL (0.90-5.00); Lymphocytes % (A) 35.0 %; MCH 31.3 pg (27.0-32.0); MCHC 34.0 g/dL (32.0-37.0); MCV 92.0 fL (80.0-97.0); Monocytes # (A) 0.54 10*3/uL (0.20-1.00); Monocytes % (A) 6.3 %; Neutrophils # (A) 4.44 10*3/uL (1.80-7.70); Neutrophils % (A) 52.1 %; Platelet Count 354 10*3/uL (140-440); RBC 4.38 10*6/uL (4.10-5.20); RDW 15.5 % (11.5-14.5); WBC 8.54 10*3/uL (4.50-10.00)
[2024-10-27 04:27] LABS: INR 0.9 (<1.2); Prothrombin Time 10.1 sec (10.0-12.5)
[2024-10-27 04:29] LABS: ALT 29 U/L (4-34); AST 36 U/L (14-36); African American GFR (CKD) 80 (>60 ml/min/1.73 sqM); Albumin 4.0 g/dL (3.5-5.0); Alkaline Phosphatase 120 U/L (38-126); Anion Gap 10 mmol/L; Blood Urea Nitrogen 12 mg/dL (7-17); Calcium 10.1 mg/dL (8.4-10.2); Carbon Dioxide 26 mmol/L (22-30); Chloride 102 mmol/L (98-107); Glucose 71 mg/dL (74-99); Magnesium 1.8 mg/dL (1.6-2.3); Non-African American GFR(CKD) 70 (>60 ml/min/1.73 sqM); Potassium 4.0 mmol/L (3.5-5.1); Sodium 138 mmol/L (137-145); Total Protein 7.4 g/dL (6.3-8.2)
[2024-10-27 04:34] LABS: NT-Pro-B-Type Natriuretic Pept 44 pg/mL
--- NOTE | 2024-10-27 04:56 | XR ---
EXAM: XR Chest, 2 Views CLINICAL HISTORY: ITS.REASON XR Reason: Leg swelling, AJ TECHNIQUE: Frontal and lateral views of the chest. COMPARISON: 08/27/2024 FINDINGS: Lungs: Pulmonary vascular congestion and left basilar infiltrate. Pleural space: No pleural effusion. No pneumothorax. Heart: Unremarkable. No cardiomegaly. Bones/joints: Unremarkable. No fracture or malalignment. IMPRESSION: Pulmonary vascular congestion and left basilar infiltrate. Pneumonia could have this appearance in the appropriate clinical setting.
[2024-10-27 05:20] VITALS: BP 115/71; PULSE 75; TEMP 98.2
[2024-10-27 08:27] LABS: T4, Free (Free Thyroxine) 0.43 ng/dL (0.78-2.19)
== END 2024-10-27 05:26 | disposition home or self-care (01) ==
LOC: EC 02:22
DX: E03.9 Hypothyroidism, unspecified (principal); R60.0 Localized edema; R94.6 Abnormal results of thyroid function studies; Z86.718 Personal history of other venous thrombosis and embolism; Z86.16 Personal history of COVID-19
CPT/HCPCS: 36415; 71046; 80053; 83735; 83880; 84439; 84443; 85025; 85379; 85610; 86140; 99284